=== PATIENT | female | born 1945 | race Caucasian/White ===

== ENCOUNTER 2024-08-16 16:26 | Inpatient (IN) | payer OTHER, MEDICARE, SELFPAY ==
[2024-08-16 16:29] VITALS: BP 137/73; PULSE 92; RESP 21; TEMP 36.5; O2SAT 95
[2024-08-16 17:00] VITALS: PULSE 97; RESP 22; O2SAT 100; BMI 30.7
--- NOTE | 2024-08-16 17:00 | PC.NURSE ---
Patient BIBA from outside a clinic after patient had a witnessed GLF. Escalator Mechanic told EMS patient slide down and landed on her bottom and was leaning against the car when EMS arriver. No LOC. No trauma to head. Upon arrival patient in no signs of acute distress. Patient A/O x1. Alert to self only. Patient placed in ED room 4 connected to monitors. MD to see patient.
--- NOTE | 2024-08-16 17:33 | XR_ITS ---
Examination: AP pelvis single view Technique: AP portable supine pelvis single view Exam date and time: August 16, 2024 1805 hrs. Indications: Patient fell today with injury to the pelvis, pelvic pain. Findings: Subtle radiolucency through the intertrochanteric region left hip Right hip bones of the pelvis intact Impression: Recommend follow-up coned views left hip to exclude left hip fracture
--- NOTE | 2024-08-16 17:33 | XR_ITS ---
Examination: CT brain head without contrast. 2-D sagittal coronal reconstructions Date and time of exam:August 16, 2024 1749 hrs. Comparison April 20, 2024 Indications: Patient fell today with injury to the head, followed by altered mental status CTDI: vol (mGy):55.7 DLP: (mGycm):1216 Technique: Multiple CT axial sections of the brain have been obtained, 5 mm slice thickness. Contrast has not been administered. 2-D sagittal, coronal reconstructions have been obtained Low dose protocols were performed. One or more of the following dose reduction techniques were used; automated exposure control, adjustment of the mA and/or KV according to patient size, use of iterative reconstruction technique. Findings: Stable asymmetric mild left ventricular enlargement compared with April 20, 2024. Intra-axial or extra-axial hemorrhage density is not seen. No mass effect or midline shift Basal cisterns are not remarkable. Fourth ventricle is midline. Cranial vault intact. Impression: Negative for acute hemorrhage, mass effect or midline shift Clinical correlation advised and follow-up accordingly
--- NOTE | 2024-08-16 17:33 | XR_ITS ---
Examination: AP chest single view Technique one AP portable upright chest single view Exam date and time: August 16, 2024 1802 hrs. Indications: Patient with altered mental status today Findings: Mild enlargement cardiac contour Mild vascular congestion Interstitial disease throughout the lungs most consistent with pulmonary fibrosis No aspiration pneumonia Cardiac leads satisfactory position Impression: Interstitial disease throughout the lungs most consistent with pulmonary fibrosis No aspiration pneumonia
--- NOTE | 2024-08-16 17:33 | EKG_ITS ---
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
--- NOTE | 2024-08-16 17:35 | EDNOTE_ITS ---
<Statement entered by Gabrielle Marte MD - 08/17/24 19:40> As co-signing physician, I was present and available for consult prn. I concur with the plan and care as documented by the midlevel provider. Altered Mental Status RME/HPI General Chief Complaint: Altered Mental Status Stated Complaint: ALTERED/FALL Time Seen by Provider: 08/16/24 17:33 Arrival date/time: 08/16/24 16:26 RME / HPI RME / HPI narrative: 79-year-old female patient with significant history of hypertension, diabetes mellitus was brought in by EMS for evaluation regarding altered mental status. Apparently patient was noted to be altered today, severity mild, usually GCS of 15, currently a GCS of 14. Went to PCP for checkup however while in the lobby, patient slid down from a chair, and was helped by her caregiver all the way down to the floor. There was no trauma involved. When the EMS arrived, patient was leaning behind the wall. On my initial evaluation, patient knows her name and place. She denies any complaints. Related Data Home Medications ?Medication ?Instructions ?Recorded ?Confirmed metoclopramide HCl 10 mg tablet 10 mg PO BID 02/28/18 04/15/24 levothyroxine 75 mcg tablet 75 mcg PO QDAY 02/14/23 04/15/24 amiodarone 200 mg tablet 200 mg PO QDAY 04/10/23 04/15/24 amlodipine 5 mg tablet 5 mg PO QDAY 04/10/23 04/15/24 bupropion HCl 200 mg tablet,12 hr 200 mg PO BID 04/10/23 04/15/24 sustained-release escitalopram oxalate 20 mg tablet 20 mg PO QDAY 04/10/23 04/15/24 apixaban 2.5 mg tablet (Eliquis) 2.5 mg PO BID 11/06/23 04/15/24 pioglitazone 15 mg tablet (Actos) 15 mg PO QDAY 11/06/23 04/15/24 atorvastatin 10 mg tablet 10 mg PO QDAY 04/15/24 04/15/24 insulin glargine 100 unit/mL (3 30 unit subcut QAM 04/15/24 04/15/24 mL) subcutaneous pen (Lantus Solostar U-100 Insulin) trazodone 150 mg tablet 150 mg PO HS 04/15/24 04/15/24 Previous Rx's ?Medication ?Instructions ?Recorded flash glucose scanning reader #1 ea 04/19/24 (FreeStyle Jc 2 [place]) flash glucose sensor (FreeStyle #1 ea 04/19/24 Jc 2 Sensor kit) losartan 50 mg tablet 50 mg PO QDAY #30 tabs 04/21/24 naloxone 4 mg/actuation nasal 4 mg intranasal Q3M PRN opioid 04/21/24 spray (Narcan) overdose #2 ea Allergies Allergy/AdvReac Type Severity Reaction Status Date / Time Sulfa (Sulfonamide Allergy Severe ITCHY Verified 11/06/23 15:58 Antibiotics) tomato Allergy Severe Rash Verified 04/15/24 18:32 Review of Systems Review of Systems Narrative Review of Systems: Review of system reviewed and within normal limits except mentioned in HPI ED Exam Narrative Physical exam: VITAL SIGNS: Reviewed. GENERAL APPEARANCE: Alert and oriented x 2, follows simple commands, no acute distress, HEAD AND FACE: Non-traumatic. ENT: PERRL, pink conjunctivitis, eyelid no trauma, Mucous membrane dry NECK: Supple, nontender, no nuchal rigidity. CHEST: No tenderness, no crepitus, no paradoxical movement, no retractions. LUNGS: Clear, well ventilated, symmetric, no rales, no wheezing, no ronchi, no stridor, good breath sounds bilaterally. HEART: Regular rate, regular rhythm, no murmur, no gallops. ABDOMEN: Soft, positive bowel sounds, nondistended, no guarding, nontender, no rebound, no masses, RECTAL: Deferred. GENITAL: Deferred. NEUROLOGICAL: Gross motor function intact sensory function intact, Appropriate for age. MUSCULOSKELETAL: low back nontender, full range of motion. EXTREMITIES: Nontender, full range of motion. SKIN: Color pink, dry, no rash, no lacerations, no abrasions, no contusions. LYMPHATICS: Deferred. Course Quality Measures none Orders Category Date Time Status Admit to Inpatient Status Routine Admission 08/16/24 22:10 Active Patient Condition Routine Admission 08/16/24 22:10 Ordered Activity as Tolerated Routine Care 08/16/24 22:10 Ordered Bedside Blood Glucose ACHS Care 08/16/24 22:15 Active COVID-19 Screening Questionnaire NOW Care 08/16/24 22:08 Active Decision to Admit X1 Care 08/16/24 22:08 Active EKG (ED ONLY) *Do not use* NOW Care 08/16/24 17:33 Completed In and Out Catheter X1 Care 08/16/24 17:33 Completed Notify provider NEEDED Care 08/16/24 22:10 Active Diet Cardiac Diet 08/16/[address] head/brain wo con Stat Exams 08/16/24 17:[address] pelvis wo con Stat Exams 08/16/24 19:49 Completed EKG (ED Only) Stat Exams 08/16/24 17:33 Draft XR chest 1V Stat Exams 08/16/24 17:33 Completed XR pelvis 1-2V Stat Exams 08/16/24 17:33 Completed B-Type Natriuretic Peptide Stat Lab 08/16/24 17:50 Completed Basic Metabolic Panel AM DRAW Lab 08/17/24 05:00 Ordered Basic Metabolic Panel AM DRAW Lab 08/18/24 05:00 Ordered Basic Metabolic Panel AM DRAW Lab 08/19/24 05:00 Ordered Blood Culture (Lab) Stat Lab 08/16/24 17:50 Received C-Reactive Protein Stat Lab 08/16/24 17:50 Completed CBC AM DRAW Lab 08/17/24 05:00 Ordered CBC AM DRAW Lab 08/18/24 05:00 Ordered CBC AM DRAW Lab 08/19/24 05:00 Ordered CBC Stat Lab 08/16/24 17:50 Completed Comprehensive Metabolic Panel Stat Lab 08/16/24 17:50 Completed Lactate (Lactic Acid) Stat Lab 08/16/24 17:50 Completed Partial Thromboplastin Time Stat Lab 08/16/24 18:23 Completed Procalcitonin Stat Lab 08/16/24 17:50 Completed Prothrombin Time with INR Stat Lab 08/16/24 18:23 Completed UA, C/S IF [Urinalysis, C/S if Indicated] Stat Lab 08/16/24 17:45 Completed Acetaminophen Tab [Tylenol Tab] Med 08/16/24 22:10 Active 650 mg PO Q6H PRN Amiodarone [Cordarone] Med 08/17/24 09:00 Ordered 200 mg PO QDAY Apixaban [Eliquis] Med 08/17/24 09:00 Ordered 2.5 mg PO BID Dextrose 50% Syr [D50w Syringe Abboject] Med 08/16/24 22:15 Active 25 ml IV Q15MIN PRN Dextrose 50% Syr [D50w Syringe Abboject] Med 08/16/24 22:15 Active 50 ml IV Q15MIN PRN Gabapentin Med 08/17/24 06:00 Ordered 100 mg PO TID Glucagon Inj Med 08/16/24 22:15 Active 1 mg IM Q15MIN PRN Insulin Glargine Inj [Lantus Inj] Med 08/17/24 09:00 Active 15 unit SC QDAY Insulin Regular Med 08/17/24 07:30 Ordered See Protocol SC ACHS Levothyroxine Sodium [Synthroid] Med 08/17/24 06:00 Ordered 75 mcg PO ACBR Sodium Chloride 0.9% 1000 ml [Ns] 1,000 ml Med 08/16/24 22:15 Ordered IV 75 mls/hr Sodium Chloride 0.9% 1000 ml [Ns] 1,000 ml Med 08/16/24 17:35 Discontinued IV 999 mls/hr cefTRIAXone/D5w 1gm IV premix [Rocephin/D5w 1gm IV Med 08/17/24 09:00 Ordered premix] 50 ml IV QDAY cefTRIAXone/D5w 1gm IV premix [Rocephin/D5w 1gm IV Med 08/16/24 19:19 Discontinued premix] 50 ml IV X1 Code Status Routine Oth 08/16/24 22:10 Ordered Vital Signs Vital signs: Vital Signs Temperature 97.7 F 08/16/24 16:29 Pulse Rate 92 08/16/24 16:29 Respiratory Rate 21 H 08/16/24 16:29 Blood Pressure 137/73 H 08/16/24 16:29 Pulse Oximetry (%) 95 08/16/24 16:29 Oxygen Delivery Method Room Air 08/16/24 16:29 Altered Mental Status MDM Narrative MDM Narrative:: 79-year-old female patient with significant history of hypertension, diabetes mellitus was brought in by EMS for evaluation regarding altered mental status. Apparently patient was noted to be altered today, severity mild, usually GCS of 15, currently a GCS of 14. Went to PCP for checkup however while in the lobby, patient slid down from a chair, and was helped by her caregiver all the way down to the floor. There was no trauma involved. When the EMS arrived, patient was leaning behind the wall. On my initial evaluation, patient knows her name and place. She denies any complaints. CT scan of the head came back unremarkable. CT scan of the pelvis came back unremarkable also. Laboratory Significant for UTI. With leukocytosis of 14.6 creatinine also was noted to be elevated to 1.6, BUN of 26. Chest x-ray came back unremarkable. Patient received IV ceftriaxone. Plan of care discussed with the patient including admission for further manageme nt. Patient agrees with the plan Patient data External records reviewed:: None Clinical information provided by:: patient and EMS Social determinants that could affect healthcare access:: none Patient has the following chronic illnesses:: COPD, chronic A-fib, diabetes mellitus How is presenting disease/condition affected by chronic disease/condition?: exacerbated by Evaluation data The following diagnostics were reviewed and interpreted by me:: lab results, radiology exam(s) and EKG tracing(s) Lab and/or radiology exams considered but not ordered:: None Interpretation Summary: EKG as interpreted by me shows sinus rhythm, ventricular rate of 80 bpm, AZ interval 192 MS, no ST segment elevation or depression noted.CT scan of the head came back unremarkable. CT scan of the pelvis came back unremarkable also. Laboratory Significant for UTI. With leukocytosis of 14.6 creatinine also was noted to be elevated to 1.6, BUN of 26. Chest x-ray came back Interstitial disease throughout the lungs most consistent with pulmonary fibrosis No aspiration pneumonia Medications / Prescriptions Medications or Prescriptions considered but not ordered:: None Medication administrations:: Medication Administration History Acetaminophen (Acetaminophen 325 Mg Tablet) 650 mg PO Q6H PRN PRN Reason: Fever >101.5 Stop: 09/15/24 22:09 Amiodarone HCl (Amiodarone Hcl 200 Mg Tablet) 200 mg PO QDAY [facility] Stop: 09/16/24 08:59 Apixaban (Apixaban 2.5 Mg Tablet) 2.5 mg PO BID [facility] Stop: 09/16/24 08:59 Dextrose (Dextrose 50%-Water Inj 50 Ml Syringe) 25 ml IV Q15MIN PRN PRN Reason: BG 50-70 responsive npo pt Stop: 09/15/24 22:14 Dextrose (Dextrose 50%-Water Inj 50 Ml Syringe) 50 ml IV Q15MIN PRN PRN Reason: BG <50 OR BG <70 & pt unresponsive Stop: 09/15/24 22:14 Gabapentin (Gabapentin 100 Mg Capsule) 100 mg PO TID [facility] Stop: 09/16/24 05:59 Glucagon (Glucagon Inj 1 Mg Vial) 1 mg IM Q15MIN PRN PRN Reason: BG <70, and no IV access Sodium Chloride (Ns) 1,000 mls @ 75 mls/hr IV .[id number] [facility] Stop: 09/15/24 22:14 Ceftriaxone Sodium/Dextrose (Rocephin/D5w 1gm Iv Premix) 50 mls @ 100 mls/hr IV QDAY [facility] Stop: 08/24/24 08:59 Insulin Glargine (Insulin Glargine (Lantus) 5 Unit/0.05 Ml (Per 5 Units)) 15 unit SC QDAY [facility] Stop: 09/16/24 08:59 Insulin Human Regular (Insulin Hum Regular 1 Unit/0.01 Ml (Per Unit)) 0 unit SC ACHS [facility]; Protocol Stop: 09/16/24 07:29 Levothyroxine Sodium (Levothyroxine Sodium 88 Mcg Tablet) 75 mcg PO ACBR [facility] Stop: 09/16/24 05:59 Discontinued Medications Sodium Chloride (Ns) 1,000 mls @ 999 mls/hr IV .Q1H1M ONE Stop: 08/16/24 18:35 Last Infusion: 08/16/24 19:07 Dose: Infused Documented By: Admin: 08/16/24 17:59 Dose: 999 mls/hr Documented By: TYLER Ceftriaxone Sodium/Dextrose (Rocephin/D5w 1gm Iv Premix) 50 mls @ 100 mls/hr IV X1 ONE Stop: 08/16/24 19:48 Last Infusion: 08/16/24 22:06 Dose: Infused Documented By: Admin: 08/16/24 20:33 Dose: 100 mls/hr Documented By: NOA Patient received ceftriaxone IV and IV fluids for hydration Consultations Consultation(s) initiated? (list below): No Consultation #1 (Physician, Specialty, Details): None Diagnosis Differential diagnosis altered mental status: altered mental status, s ubarachnoid hemorrhage, sepsis and other (UTI) Most likely diagnosis given after review of the tests above:: uti Admission Indicated Admission indicated?: not indicated Explain why admission is indicated or not indicated:: None Admission Request Was there a request for admission?: Yes Admission Attestation Admission request attestation: Discussed case with [ Dr Skinner ] from Hospitalist service regarding admission. Discussed patients ED course, exam findings, labs, and radiology results. The Hospitalist [agrees] to accept the patient for admission. Disposition Plan Disposition Plan: Admit Discharge Plan Plan Patient Disposition: Admit Acute Care w/in Hospital Prescriptions/Referrals Prescriptions/Med Rec: No Action Eliquis 2.5 mg tablet 2.5 mg PO BID Hold Instructions: Resume on 05/03/24. HOLD until follow up with PCP , not required pioglitazone [Actos] 15 mg tablet 15 mg PO QDAY Hold Instructions: Resume on 05/03/24. HOLD until follow up with PCP metoclopramide HCl 10 mg Tablet 10 mg PO BID amiodarone 200 mg tablet 200 mg PO QDAY Patient Comments: TAKE 1 TABLET BY MOUTH EVERY DAY amlodipine 5 mg tablet 5 mg PO QDAY Patient Comments: TAKE 1 TABLET BY MOUTH EVERY DAY bupropion HCl 200 mg tablet sustained-release 12 hr 200 mg PO BID Patient Comments: TAKE 1 TABLET BY MOUTH TWICE A DAY escitalopram oxalate 20 mg tablet 20 mg PO QDAY Patient Comments: TAKE 1 TABLET BY MOUTH EVERY DAY levothyroxine 75 mcg Tablet 75 mcg PO QDAY atorvastatin 10 mg Tablet 10 mg PO QDAY insulin glargine [Lantus Solostar U-100 Insulin] 100 unit/mL (3 mL) Insulin Pen 30 unit SUBCUT QAM Hold Instructions: Resume on 05/03/24. HOLD until follow up with PCP trazodone 150 mg tablet 150 mg PO HS Hold Instructions: f/u with pcp Patient Comments: TAKE 1 TABLET BY MOUTH AT BEDTIME (DME) FreeStyle Jc 2 [place] Misc See Rx Instructions .Route Qty: 1 0RF Rx Instructions: As directed (DME) FreeStyle Jc 2 Sensor Kit See Rx Instructions .Route Qty: 1 0RF Rx Instructions: As directed naloxone [Narcan] 4 mg/actuation spray,non-aerosol 4 mg intranasal Q3M PRN (Reason: opioid overdose) Qty: 2 2RF Rx Instructions: spray 1 dose into ONE nostril; alternate nostrils w each dose until help arrives losartan 50 mg tablet 50 mg PO QDAY Qty: 30 0RF Referrals: No Primary/Family,Physician [Primary Care Provider] - In 1 week Problem List Clinical Impression: Altered mental status, Acute UTI Patient/Caregiver Discharge Instructions Print Language: Thai Stand Alone Forms: [employer] Info., Patient Portal Info Letter
[2024-08-16 17:58] LABS: Lactate (Lactic Acid) 1.2 mMol/L (0.4-2.0)
[2024-08-16] MEDS: SODIUM CHLORIDE 0.9% 1000 ML 1,000 ML 999 ML IV (17:59)
[2024-08-16 18:00] LABS: Basophils % (Auto) 0 % (0-2.5); Eosinophils % (Auto) 0 % (0-10); Hematocrit 40.4 % (36.0-46.0); Hemoglobin 13.7 g/dL (12.0-16.0); Immature Granulocytes % (Auto) 1 % (0-0); Immature Granulocytes Auto 0.12 Thou/mm3 (0.00-0.00); Lymphocytes # (Auto) 1.3 Thou/mm3 (1.0-4.8); Lymphocytes % (Auto) 9 % (10-50); Mean Corpuscular HGB Conc 33.9 g/dl (31.0-37.0); Mean Corpuscular Volume 89 fL (80-100); Monocytes # (Auto) 1.2 Thou/mm3 (0.0-0.8); Monocytes % (Auto) 8 % (0-12); Neutrophils % (Auto) 82 % (37-80); Nucleated Red Blood Cell % 0 /100 WBC (0); Platelet Count 185 Thou/mm3 (140-440); RDW Standard Deviation 45.1 fL (36.4-46.3); Red Blood Count 4.56 Miln/mm3 (4.00-5.20); White Blood Count 14.6 Thou/mm3 (3.6-11.0)
[2024-08-16 18:21] VITALS: BP 159/81; PULSE 79; RESP 17; TEMP 36.6; O2SAT 95
[2024-08-16 18:23] LABS: Bacteria,Urine 2+; Bilirubin,Urine Negative (Negative); Blood,Urine 3+ (Negative); Collection Type, Urine Catheter; Color,Urine Yellow (Lt Yel-Yel); Culture Indicated,Urine Contaminated; Glucose, Urine 3+ (Negative); Hyaline Casts,Urine 1 /hpf (0-1); Ketones,Urine Negative (Negative); Leukocyte Esterase,Urine Positive (Negative); Nitrite,Urine Negative (Negative); Protein,Urine 3+ (Neg - Trace); RBC,Urine 81 /hpf (0-3); Specific Gravity,Urine 1.024 (1.001-1.035); Squamous Epithelial Cell,Urine 21 /hpf (0-5); Urobilinogen,Urine Negative mg/dL (0.0-1.0); WBC,Urine 2035 /hpf (0-5)
[2024-08-16 18:24] LABS: Clarity,Urine Turbid (Clear/Hazy)
[2024-08-16 18:34] LABS: Alanine Aminotransferase 10 U/L (10-49); Albumin, Serum 4.1 gm/dL (3.4-4.8); Albumin/Globulin Ratio 1.5 (1.2-2.2); Alkaline Phosphatase 71 U/L (46-116); Anion Gap 8 (7-16); Aspartate Amino Transferase 12 U/L (0-34); BUN/Creatinine Ratio 16 Ratio (12-20); Bilirubin,Total 0.7 mg/dL (0.3-1.2); Blood Urea Nitrogen 26 mg/dL (9-23); C-Reactive Protein 0.8 mg/dL (0.0-0.9); Calcium 9.7 mg/dL (8.3-10.6); Calcium (Corrected) 9.7 mg/dL (8.5-10.1); Carbon Dioxide 20.8 mMol/L (20.0-31.0); Chloride 101 mMol/L (98-107); Creatinine (Component) 1.6 mg/dL (0.6-1.3); Estimated Creatinine Clearance 31.5 mL/min (>60); Globulin 2.8 gm/dL (2.3-3.5); Glucose 399 mg/dL (74-106); Osmolality,Calculated 282 (275-295); Procalcitonin 0.06 ng/ml (0.0-0.49); Sodium 130 mMol/L (136-145); Total Protein 6.9 gm/dL (5.7-8.2); eGFR 33 See Note
[2024-08-16 18:44] LABS: B-Type Natriuretic Peptide 56 pg/mL (0-100)
[2024-08-16 19:45] LABS: Partial Thromboplastin Time 24.8 Seconds (22.0-36.0); Prothrombin Time 11.4 Seconds (9.0-12.2)
--- NOTE | 2024-08-16 19:49 | XR_ITS ---
Examination: CT pelvis without intravenous contrast. 2-D sagittal and coronal reconstructions. Date and time of exam:August 16, 2024 1800 hrs. Indications: Patient fell today with injury of the pelvis, pelvic pain CTDI: vol (mGy) :14.3 DLP: (mGycm) : 523 Technique: Multiple 3 mm axial sections of the pelvis have been obtained with the 64 slice high resolution scanner. 2-D sagittal and coronal reconstructions. Low dose protocols were performed. One or more of the following dose reduction techniques were used; automated exposure control, adjustment of the mA and/or KV according to patient size, use of iterative reconstruction technique. Findings: Prominent osteopenia Right and left hips appear intact with no hip dislocation Bones of the pelvis intact Fat-containing femoral hernias Urinary bladder intact No pelvic hematoma Impression: No acute hip or pelvic fracture
[2024-08-16] MEDS: cefTRIAXone/D5w 1gm IV premix 50 ML IV (20:33)
[2024-08-16 21:30] VITALS: BP 157/103; PULSE 82; RESP 19; TEMP 37.2; O2SAT 99
[2024-08-16 22:00] VITALS: BP 155/72; PULSE 72; RESP 18; O2SAT 97
--- NOTE | 2024-08-16 22:09 | PD.HHHP ---
Documentation for date of: 08/16/24 HPI - Hospitalist History of Present Illness History of Present Illness: AMS History of present illness: The patient is a 79-year-old female with a significant past medical history of type 2 diabetes mellitus (insulin-dependent), heart failure with preserved ejection fraction (EF 50?55% as of January 2023), atrial fibrillation on Eliquis, hypothyroidism, hypertension, chronic back pain, and status post-pacemaker placement in 2022. She was brought to the emergency department by EMS following a reported fall. According to the emergency physician's note, the fall occurred in the lobby of her primary care physician's office. The patient reportedly slid down from a chair and was assisted to the floor by her caregiver. No trauma was noted, and upon EMS arrival, she was found leaning against a wall. In the emergency department, her vital signs were notable for a heart rate of 92 bpm, blood pressure of 137/73 mmHg, respiratory rate of 21 breaths per minute, temperature of 97.7?F, and oxygen saturation of 95% on room air. Laboratory studies revealed WBC 14.6, Na 130 mmol/L, elevated creatinine 1.6 mg/dL, and glucose 399 mg/dL. Urinalysis showed turbid urine with WBC >2035/HPF and 2+ bacteria. Imaging studies included a head CT, which was negative for acute intracranial pathology, and a hip X-ray, which demonstrated a subtle radiolucency through the left intertrochanteric region, suggestive of a possible fracture. However, a CT scan confirmed no acute hip or pelvic fracture. EKG showed sinus rhythm with no acute changes. When interviewed, the patient was unable to recall details of the incident, including who called EMS or specifics about her living situation. She denied any specific complaints during the assessment. The patient was admitted for further evaluation and management. Review of Systems Review of Systems ROS Unobtainable: unobtainable due to mental status Past Medical History Past Medical History CARDIAC: Positive Cardiac Disorders, Atrial Fibrillation and Hypertension; Negative Congestive Heart Failure RESPIRATORY: Negative Chronic Obstructive Pulmonary Disease (COPD) or Asthma GASTROINTESTINAL: Positive Gastroesophageal Reflux Disease GENITOURINARY: Negative Renal Disease MUSCULOSKELETAL: Positive Degenerative Disk Disease ENDOCRINE: Positive Diabetes Mellitus Type 2 and Hypothyroidism; Negative Diabetes Mellitus Type 1 HEMATOLOGIC: Negative Sickle Cell Disease PSYCHO/SOCIAL: Positive Bipolar Disorder, Depression and Anxiety OTHER HISTORY: Positive Blood Transfusions Surgical History SURGICAL: Positive Abdominal Surgery and Hysterectomy Social History SMOKING STATUS: Never smoker SUBSTANCE USE: does not use OCCUPATION: Retired. Single. Meds Home Medications and Allergies Home Medications ?Medication ?Instructions ?Recorded ?Confirmed ?Type metoclopramide HCl 10 mg tablet 10 mg PO BID 02/28/18 04/15/24 History levothyroxine 75 mcg tablet 75 mcg PO QDAY 02/14/23 04/15/24 History amiodarone 200 mg tablet 200 mg PO QDAY 04/10/23 04/15/24 History amlodipine 5 mg tablet 5 mg PO QDAY 04/10/23 04/15/24 History bupropion HCl 200 mg tablet,12 hr 200 mg PO BID 04/10/23 04/15/24 History sustained-release escitalopram oxalate 20 mg tablet 20 mg PO QDAY 04/10/23 04/15/24 History apixaban 2.5 mg tablet (Eliquis) 2.5 mg PO BID 11/06/23 04/15/24 History pioglitazone 15 mg tablet (Actos) 15 mg PO QDAY 11/06/23 04/15/24 History atorvastatin 10 mg tablet 10 mg PO QDAY 04/15/24 04/15/24 History insulin glargine 100 unit/mL (3 30 unit subcut QAM 04/15/24 04/15/24 History mL) subcutaneous pen (Lantus Solostar U-100 Insulin) trazodone 150 mg tablet 150 mg PO HS 04/15/24 04/15/24 History Allergies Allergy/AdvReac Type Severity Reaction Status Date / Time Sulfa (Sulfonamide Allergy Severe ITCHY Verified 11/06/23 15:58 Antibiotics) tomato Allergy Severe Rash Verified 04/15/24 18:32 Exam Vital Signs Temp Pulse Resp BP Pulse Ox O2 Del Method 98.9 F 82 19 157/103 H 99 Room Air 08/16/24 21:30 08/16/24 21:30 08/16/24 21:30 08/16/24 21:30 08/16/24 21:30 08/16/24 21:30 Narrative Constitutional: Female, in no apparent distress. Eyes: Extraocular movements intact. No ptosis. PERRL. Neck: Supple, trachea midline. No thyromegaly. Lungs: Clear and good breath sounds equally. No wheezing. No rhonchi. CV: S1, S2. Regular rate and rhythm. GI: Soft, nontender. No HSM. Musculoskeletal: No cyanosis, clubbing or edema. Neuro: Disoriented. Not following orders. Psychiatric: No signs of depression and is nonfocal. Skin: Warm and dry. No acute lesions. Results - Hospitalist Labs Diagrams: 08/16/24 17:50 08/16/24 17:50 Labs: Short CBC 08/16/24 Range/Units 17:50 WBC 14.6 H (3.6-11.0) Thou/mm3 Hgb 13.7 (12.0-16.0) g/dL Hct 40.4 (36.0-46.0) % Plt Count 185 (140-440) Thou/mm3 BMP 08/16/24 17:50 Sodium 130 L Potassium 4.0 Chloride 101 Carbon Dioxide 20.8 BUN 26 H Creatinine 1.6 H Glucose 399 H Calcium 9.7 Liver Function 08/16/24 Range/Units 17:50 Total Bilirubin 0.7 (0.3-1.2) mg/dL AST 12 (0-34) U/L ALT 10 (10-49) U/L Alkaline Phosphatase 71 (46-116) U/L Albumin 4.1 (3.4-4.8) gm/dL Urine 08/16/24 Range/Units 17:45 Urine Color Yellow (Lt Yel-Yel) Urine Clarity Turbid A (Clear/Hazy) Urine pH 6.0 (5.0-7.0) Ur Specific [place] 1.024 (1.001-1.035) Urine Protein 3+ A (Neg - Trace) Urine Glucose (UA) 3+ A (Negative) Assessment & Plan -Hospitalist Patient Synopsis #AMS #Fall - Likely multifactorial, including possible orthostatic hypotension, medication side effects, or underlying infection. No acute fractures identified - Physical therapy, initiate early mobility evaluation to prevent deconditioning - Hold psy meds now #UTI - Antibiotic #Acute kidney injury - IV hydration #DM - Adjust insulin regimen and monitor blood glucose levels #Hx Hypertension - Hold losartan due to KRYSTAL #Hx Atrial fibrillation #Heart failure with preserved ejection fraction 50-55% - Eliquis 2.5 mg PO BID - Continue Amiodarone 200 mg PO Qday #Hx Hypothyroidism - Levothyroxine Quality Measures Quality Measures VTE prophylaxis Advance care planning discussed with:: patient
[2024-08-16] MEDS: SODIUM CHLORIDE 0.9% 1000 ML 1,000 ML 75 ML IV (22:47)
[2024-08-16 23:00] VITALS: BP 125/81; PULSE 81; RESP 18; O2SAT 98
--- NOTE | 2024-08-16 23:43 | PC.NURSE ---
REPORT GIVEN TO JOO JCAOBS. ALL QUESTIONS ASKED AND ANSWERED. IVF INFUSING WITHOUT DIFFICULTY. PATIENT TAKEN TO FLOOR BY STAFF. NO DISTRESS NOTED AT TRANSFER. PATIENT ON ROOM AIR.
[2024-08-17] VITALS (10 sets, daily range): BP systolic 126–174; BP diastolic 58–89; PULSE 65–94; RESP 14–19; TEMP 36–36.6; O2SAT 92–98; BMI 35.5; BMI 12.0
[2024-08-17] MEDS: LEVOTHYROXINE SODIUM 25 MCG TABLET 75 MCG PO (05:28)
[2024-08-17] MEDS: GABAPENTIN 100 MG CAPSULE PO ×3 (05:28→22:19)
[2024-08-17 06:19] LABS: Basophils % (Auto) 0 % (0-2.5); Eosinophils # (Auto) 0.1 Thou/mm3 (0.0-0.5); Eosinophils % (Auto) 1 % (0-10); Hematocrit 38.9 % (36.0-46.0); Hemoglobin 12.9 g/dL (12.0-16.0); Immature Granulocytes % (Auto) 1 % (0-0); Immature Granulocytes Auto 0.06 Thou/mm3 (0.00-0.00); Lymphocytes % (Auto) 17 % (10-50); Mean Corpuscular HGB Conc 33.2 g/dl (31.0-37.0); Mean Corpuscular Hemoglobin 30.4 pg (25.0-35.0); Mean Corpuscular Volume 92 fL (80-100); Monocytes % (Auto) 8 % (0-12); Neutrophils # (Auto) 8.7 Thou/mm3 (1.8-7.7); Neutrophils % (Auto) 73 % (37-80); Nucleated Red Blood Cell % 0 /100 WBC (0); Platelet Count 129 Thou/mm3 (140-440); RDW Standard Deviation 48.1 fL (36.4-46.3); Red Blood Count 4.24 Miln/mm3 (4.00-5.20); White Blood Count 11.9 Thou/mm3 (3.6-11.0)
[2024-08-17 06:43] LABS: Anion Gap 10 (7-16); BUN/Creatinine Ratio 19 Ratio (12-20); Blood Urea Nitrogen 26 mg/dL (9-23); Carbon Dioxide 22.1 mMol/L (20.0-31.0); Chloride 103 mMol/L (98-107); Creatinine (Component) 1.4 mg/dL (0.6-1.3); Estimated Creatinine Clearance 38.9 mL/min (>60); Free T4 (Free Thyroxine) 1.62 ng/dL (0.89-1.76); Glucose 246 mg/dL (74-106); Osmolality,Calculated 282 (275-295); Potassium 4.3 mMol/L (3.4-5.1); Sodium 135 mMol/L (136-145); eGFR 38 See Note
[2024-08-17] MEDS: INSULIN HUM REGULAR 1 UNIT/0.01 ML (PER UNIT) SC ×4 (07:24→20:30)
[2024-08-17] MEDS: ACETAMINOPHEN 325 MG TABLET 650 MG PO ×2 (07:58→20:37)
[2024-08-17] MEDS: INSULIN GLARGINE (Lantus) 5 UNIT/0.05 ML (PER 5 UNITS) 15 UNIT SC (09:19)
[2024-08-17] MEDS: APIXABAN 2.5 MG TABLET PO ×2 (09:20→20:30)
[2024-08-17] MEDS: AMIODARONE HCL 200 MG TABLET PO (09:20)
[2024-08-17] MEDS: cefTRIAXone/D5w 1gm IV premix 50 ML IV (09:21)
--- NOTE | 2024-08-17 12:18 | PC.PT ---
PT eval only. Patient is at her PLOF. Homehealth OT needed to assess patient's needs at home and also assess patient's wc as needed.
--- NOTE | 2024-08-17 12:41 | PC.SS ---
12:41 SW attempted to contact Daja, caregiver, auto message stated caller unable to accept calls PT informed SS recommendation for HH
--- NOTE | 2024-08-17 13:16 | ESPR_ITS ---
<Statement entered by Sherrill Birch MD - 09/03/24 09:26> I reviewed above note and agree with findings and plans. I have also personally examined the patient with medicine team and went over assessment and plan with medical team including tax intern and resident physician. Documentation for date of: 08/17/24 Subjective Subjective Interval history: Patient knows her name and that she is in the hospital but does not know what hospital. She also reports being in pain but when asked where she states she does not know . She is very slow to respond. Exam Vital Signs Temp Pulse Resp BP Pulse Ox O2 Del Method 97.2 F 75 14 137/58 H 94 L Room Air 08/17/24 12:00 08/17/24 12:00 08/17/24 12:00 08/17/24 12:00 08/17/24 12:00 08/17/24 12:00 Narrative Exam General: Well appearing, confused, in no acute distress HEENT: Normocephalic, atraumatic, conjunctiva clear, sclera non-icteric, EOM intact, PERRL, Heart: Regular rate and rhythm, no murmur or gallop Lungs: Clear to auscultation, no wheezing Abdomen: Bowel sounds normal, no tenderness, organomegaly, masses, or hernia Back: Spine normal without deformity or tenderness, no CVA tenderness Extremities: No amputations or deformities, cyanosis, or varicosities, peripheral pulses intact. +1 pitting edema b/l LE Neurologic: moves all extremities spontaneously, Alert but only oriented to name Psychiatric: Cooperative, normal mood and affect. Objective Labs 08/17/24 05:50 08/17/24 05:50 Labs: Laboratory Results - last 24 hr 08/16/24 08/16/24 08/16/24 17:45 17:50 18:23 WBC 14.6 H RBC 4.56 Hgb 13.7 Hct 40.4 MCV 89 MCH 30.0 MCHC 33.9 RDW Std Deviation 45.1 Plt Count 185 Neut % (Auto) 82 H Lymph % (Auto) 9 L [place] % (Auto) 8 Eos % (Auto) 0 Baso % (Auto) 0 Neut # (Auto) 12.0 H Lymph # (Auto) 1.3 [place] # (Auto) 1.2 H Eos # (Auto) 0.0 Baso # (Auto) 0.0 Immature Gran # (Auto) 0.12 H Absolute Nucleated RBC 0.00 Immature Gran % 1 H Nucleated RBC % 0 PT 11.4 INR 1.0 APTT 24.8 Sodium 130 L Potassium 4.0 Chloride 101 Carbon Dioxide 20.8 Anion Gap 8 BUN 26 H Creatinine 1.6 H Estim Creat Clear Calc 31.5 L eGFR 33 L BUN/Creatinine Ratio 16 Glucose 399 H Calculated Osmolality 282 Lactic Acid 1.2 Calcium 9.7 Corrected Calcium 9.7 Total Bilirubin 0.7 AST 12 ALT 10 Alkaline Phosphatase 71 C-Reactive Prot, Quant 0.8 B-Natriuretic Peptide 56 Total Protein 6.9 Albumin 4.1 Globulin 2.8 Albumin/Globulin Ratio 1.5 Procalcitonin 0.06 TSH Free T4 Ur Collection Type Catheter Urine Color Yellow Urine Clarity Turbid A Urine pH 6.0 Ur Specific [place] 1.024 Urine Protein 3+ A Urine Glucose (UA) 3+ A Urine Ketones Negative Urine Blood 3+ A Urine Nitrite Negative Urine Bilirubin Negative Urine Urobilinogen (Auto) Negative Ur Leukocyte Esterase Positive Urine RBC 81 H Urine WBC 2035 H Ur Squamous Epith Cells 21 H Urine Bacteria 2+ A Hyaline Casts 1 Ur Culture Indicated? Contaminated 08/17/24 05:50 WBC 11.9 H RBC 4.24 Hgb 12.9 Hct 38.9 MCV 92 MCH 30.4 MCHC 33.2 RDW Std Deviation 48.1 H Plt Count 129 L D Neut % (Auto) 73 Lymph % (Auto) 17 [place] % (Auto) 8 Eos % (Auto) 1 Baso % (Auto) 0 Neut # (Auto) 8.7 H Lymph # (Auto) 2.0 [place] # (Auto) 1.0 H Eos # (Auto) 0.1 Baso # (Auto) 0.0 Immature Gran # (Auto) 0.06 H Absolute Nucleated RBC 0.00 Immature Gran % 1 H Nucleated RBC % 0 PT INR APTT Sodium 135 L Potassium 4.3 Chloride 103 Carbon Dioxide 22.1 Anion Gap 10 BUN 26 H Creatinine 1.4 H Estim Creat Clear Calc 38.9 L eGFR 38 L BUN/Creatinine Ratio 19 Glucose 246 H D Calculated Osmolality 282 Lactic Acid Calcium 9.0 Corrected Calcium Total Bilirubin AST ALT Alkaline Phosphatase C-Reactive Prot, Quant B-Natriuretic Peptide Total Protein Albumin Globulin Albumin/Globulin Ratio Procalcitonin TSH 2.30 Free T4 1.62 Ur Collection Type Urine Color Urine Clarity Urine pH Ur Specific [place] Urine Protein Urine Glucose (UA) Urine Ketones Urine Blood Urine Nitrite Urine Bilirubin Urine Urobilinogen (Auto) Ur Leukocyte Esterase Urine RBC Urine WBC Ur Squamous Epith Cells Urine Bacteria Hyaline Casts Ur Culture Indicated? Quality Measures Quality Measures VTE prophylaxis Advance care planning discussed with:: patient Assessment & Plan Assessment Current Active Medications: Generic Name Dose Route Start Last Admin Trade Name Freq PRN Reason Stop Dose Admin Acetaminophen 650 mg 08/16/24 22:10 Acetaminophen 325 Mg Tablet PO 09/15/24 22:09 Q6H PRN Fever >101.5 Acetaminophen 650 mg 08/17/24 07:38 08/17/24 07:58 Acetaminophen 325 Mg Tablet PO 09/16/24 07:37 650 mg Q6HR PRN Administration PAIN Hydrocodone Bitart/Acetaminophen 1 tab 08/17/24 13:15 Hydrocodone/Apap 10/325 Tab PO 08/22/24 13:29 BID PRN Pain Amiodarone HCl 200 mg 08/17/24 09:00 08/17/24 09:20 Amiodarone Hcl 200 Mg Tablet PO 09/16/24 08:59 200 mg QDAY YURY Administration Apixaban 2.5 mg 08/17/24 09:00 08/17/24 09:20 Apixaban 2.5 Mg Tablet PO 09/16/24 08:59 2.5 mg BID YURY Administration Dextrose 25 ml 08/16/24 22:15 Dextrose 50%-Water Inj 50 Ml Syringe IV 09/15/24 22:14 Q15MIN PRN BG 50-70 responsive npo pt Dextrose 50 ml 08/16/24 22:15 Dextrose 50%-Water Inj 50 Ml Syringe IV 09/15/24 22:14 Q15MIN PRN BG <50 OR BG <70 & pt unresponsive Gabapentin 100 mg 08/17/24 06:00 08/17/24 05:28 Gabapentin 100 Mg Capsule PO 09/16/24 05:59 100 mg TID YURY Administration Glucagon 1 mg 08/16/24 22:15 Glucagon Inj 1 Mg Vial IM Q15MIN PRN BG <70, and no IV access Ceftriaxone Sodium/Dextrose 50 mls @ 100 mls/hr 08/17/24 09:00 08/17/24 09:21 Rocephin/D5w 1gm Iv Premix IV 08/24/24 08:59 100 mls/hr QDAY YURY Administration Insulin Glargine 15 unit 08/17/24 09:00 08/17/24 09:19 Insulin Glargine (Lantus) 5 Unit/0.05 Ml (Per 5 Units) SC 09/16/24 08:59 15 unit QDAY YURY Administration Insulin Human Regular 0 unit 08/17/24 07:30 08/17/24 11:35 Insulin Hum Regular 1 Unit/0.01 Ml (Per Unit) SC 09/16/24 07:29 2 unit ACHS YURY Administration Protocol Levothyroxine Sodium 75 mcg 08/17/24 06:00 08/17/24 05:28 Levothyroxine Sodium 25 Mcg Tablet PO 09/16/24 05:59 75 mcg ACBR YURY Administration Plan Kassi is a 79 F Hx of DM II, HFpEF, Afib on eliquis, Hypothyroidism, HTN, chronic back pain, S/P pacemaker 2022 who presents after a fall at her PCP. No fracture or bleed was found after imaging. However, patient was confused on exam and UA showed infection. Patient will be admitted for AMS 2/2 UTI. #Acute toxic encephalopathy 2/2 UTI UA showed turbid urine with WBC>2035HPF, 2+ bacteria WBC 14.7, Afebrile, no tachycardia/tachypnea, saturating well on RA, mildly hypertensive -Ceftriaxone 1g QD IV -pending urine culture; BCx2 -Tylenol 650mg PRN fever #Ground level Fall - Likely multifactorial, including possible orthostatic hypotension, medication side effects, or underlying infection. No acute fractures identified - Physical therapy, initiate early mobility evaluation to prevent deconditioning - Hold psy meds now #Acute kidney injury -1L NS -Hx of HFpEF, mild pitting edema on exam, will hold more IVF and encourage PO intake -Monitor CMP -Avoid Nephrotoxic drugs #Hx of chronic back pain 8mg Dilaudid 30 tablets per month takes PRN -10mg [place] BID PRN -Tylenol 650mg q6Hr PRN -Monitor for opioid withdrawal #IDDM Home dose 30u glargine -15u glargine QAM -SSI #Hx Hypertension -Hold losartan due to KRYSTAL -Hydralazine SBP> 180 q4hr PRN -Will monitor #Hx Atrial fibrillation #Heart failure with preserved ejection fraction 50-55% #Hx of Pacemaker -Eliquis 2.5 mg PO BID -Continue Amiodarone 200 mg PO Qday -Med/tele #Hx Hypothyroidism - Levothyroxine 75mcg PO QD Health Maintenance: Disp: Med/tele FEN:Cardiac diet GI: not indicated DVT: Eliquis 2.5mg BID Lines: PIV Code: Full The patient's plan was discussed with attending Dr. Birch and senior resident Dr. Yenni Rodriguez, DO PGY1 Internal Medicine Senior resident attestation: Patient evaluated and examined at the bedside, plan of care discussed with rest of the team including my attending physician, except as noted. #Acute toxic encephalopathy, like secondary to UTI: Now improving, patient is A and O x 2, she is a bit slow to respond but is aware that she was confused previously. Possible altered mental status due to underlying UTI. #Opioid use disorder: Patient takes Dilaudid 8 mg p.o. daily, patient reported taking more than 1 pill at times. Takes opioids due to severe backache. We are concern for altered mental status, reluctant to start her back to her home dose as mental status is still not back to baseline. Will start her on [place] 10 mg as needed, if pain control is adequate we will consider alternative medications. Patient is a candidate for methadone or Suboxone, should follow outpatient after discharge. #KRYSTAL: KRYSTAL likely secondary to prerenal etiology, IV fluids. Will monitor closely #Hypertensive urgency: Now resolved, hydralazine added for high blood pressure as needed. Holding off on losartan due to concurrent KRYSTAL. #History of diabetes mellitus: Long-acting insulin plus sliding scale insulin, Yenni PGY2
--- NOTE | 2024-08-17 14:34 | PC.SS ---
Kassi Calderón is 79 year old female admitted to [facility] for AMS. SS conducted bedside contact with the patient to complete initial assessment and to discuss discharge planning. SW used all precautionary measures to complete initial. Role and reason for the contact was explained to Kassi. Pt is alert and oriented times 2. Pt gave verbal authorization for Daja Virgen, spouse and decision maker,[phone] to be present while assessment was conducted. Daja confirmed demographic information. Patient identifies Daja Virgen, spouse, as her surrogate decision maker. Pt states prior to hospitalization pt is cared for by Daja for all ADLs. Pt has O2 but was not using it when assessment was conducted. Provider for O2 is believed to be [facility]. [facility] services discussed and pt has not qualified for medi-rich; Daja is looking into this again. Pt uses wheelchair. Pt does not have a safe 3-1 commode and asking for a hospital bed. Pt confirmed nervous breakdown a while ago, decades, and no current history of mental health or substance abuse.Pt is open to services and does not have a preference on provider. Pt has hugo lift but it is also not working properly as fire department has had to assist lifting pt. Pt and Daja will have a full-bath outside on their porch where Daja is able to wheel pt to tub as shower is too small. Other times pt will receive a bed bath by Daja. Pts PCP is Lang Sandoval last seen last month. Advance life directive discussed and pt not receptive at this time. Pharmacy [facility] choice [facility] [address]. Discharge options discussed and the pt return home. Pt was at [facility] about a year ago and stayed there for a month when pt began deteriorating with memory lapses. Family will provide transportation upon DC. No further intervention required at this time, social services manager would be available to address any further concerns. DC Plan: Home Address: Confirmed on face sheet Contact: Daja Virgen, spouse, PCP: Lang Sandoval
[2024-08-17] MEDS: HYDROcodone/APAP 10/325 TAB PO (16:25)
[2024-08-18] VITALS (10 sets, daily range): BP systolic 128–176; BP diastolic 55–106; PULSE 63–81; RESP 16–20; TEMP 36.4–37.6; O2SAT 92–98
[2024-08-18] MEDS: LEVOTHYROXINE SODIUM 25 MCG TABLET 75 MCG PO (05:53)
[2024-08-18] MEDS: GABAPENTIN 100 MG CAPSULE PO ×3 (05:53→21:19)
[2024-08-18] MEDS: hydrALAZINE INJ 20 MG/ML VIAL 10 MG IV (07:36)
[2024-08-18] MEDS: INSULIN HUM REGULAR 1 UNIT/0.01 ML (PER UNIT) SC ×4 (07:43→21:00)
[2024-08-18 08:00] LABS: Basophils % (Auto) 0 % (0-2.5); Eosinophils # (Auto) 0.2 Thou/mm3 (0.0-0.5); Eosinophils % (Auto) 3 % (0-10); Hematocrit 36.5 % (36.0-46.0); Hemoglobin 12.1 g/dL (12.0-16.0); Immature Granulocytes % (Auto) 0 % (0-0); Immature Granulocytes Auto 0.03 Thou/mm3 (0.00-0.00); Lymphocytes % (Auto) 25 % (10-50); Mean Corpuscular HGB Conc 33.2 g/dl (31.0-37.0); Mean Corpuscular Hemoglobin 30.4 pg (25.0-35.0); Mean Corpuscular Volume 92 fL (80-100); Monocytes # (Auto) 0.7 Thou/mm3 (0.0-0.8); Monocytes % (Auto) 9 % (0-12); Neutrophils # (Auto) 4.9 Thou/mm3 (1.8-7.7); Neutrophils % (Auto) 63 % (37-80); Nucleated Red Blood Cell % 0 /100 WBC (0); Platelet Count 148 Thou/mm3 (140-440); RDW Standard Deviation 47.8 fL (36.4-46.3); Red Blood Count 3.98 Miln/mm3 (4.00-5.20); White Blood Count 7.8 Thou/mm3 (3.6-11.0)
[2024-08-18 08:17] LABS: Anion Gap 8 (7-16); BUN/Creatinine Ratio 21 Ratio (12-20); Blood Urea Nitrogen 32 mg/dL (9-23); Calcium 8.8 mg/dL (8.3-10.6); Carbon Dioxide 23.7 mMol/L (20.0-31.0); Chloride 104 mMol/L (98-107); Creatinine (Component) 1.5 mg/dL (0.6-1.3); Estimated Creatinine Clearance 36.3 mL/min (>60); Glucose 196 mg/dL (74-106); Osmolality,Calculated 283 (275-295); Sodium 136 mMol/L (136-145); eGFR 35 See Note
[2024-08-18] MEDS: INSULIN GLARGINE (Lantus) 5 UNIT/0.05 ML (PER 5 UNITS) 20 UNIT SC (08:57)
[2024-08-18] MEDS: AMIODARONE HCL 200 MG TABLET PO (08:58)
[2024-08-18] MEDS: cefTRIAXone/D5w 1gm IV premix 50 ML IV (09:05)
[2024-08-18] MEDS: HYDROcodone/APAP 10/325 TAB PO (09:15)
[2024-08-18] MEDS: APIXABAN 2.5 MG TABLET PO ×2 (09:16→20:58)
[2024-08-18 09:19] LABS: Magnesium 1.8 mg/dL (1.6-2.6)
[2024-08-18] MEDS: NIFEdipine XL 30 MG TABCR PO (09:19)
--- NOTE | 2024-08-18 11:41 | ESPR_ITS ---
<Statement entered by Sherrill Birch MD - 09/03/24 09:27> I reviewed above note and agree with findings and plans. I have also personally examined the patient with medicine team and went over assessment and plan with medical team including strategy intern and resident physician. Documentation for date of: 08/18/24 Subjective Subjective Interval history: Patient states that she has back pain that makes movement painful. Otherwise she feels fine. She states that she lives with her friend. She is tolerating her diet well and states she ate all of her breakfast. She denies nausea or vomiting. She also states that she takes Dilaudid 8mg 5 times a day. The least amount she takes is 8mg four times a day. Exam Vital Signs Temp Pulse Resp BP Pulse Ox O2 Del Method 98.7 F 81 17 165/55 H 92 L Room Air 08/18/24 07:43 08/18/24 09:19 08/18/24 07:43 08/18/24 09:19 08/18/24 07:43 08/18/24 07:43 Narrative Exam General: Alert, in no acute distress HEENT: Normocephalic, atraumatic, conjunctiva clear, sclera non-icteric, EOM intact, PERRL, Heart: Regular rate and rhythm, no murmur or gallop Lungs: Clear to auscultation, no wheezing Abdomen: soft, non tender, non distended Extremities: No amputations or deformities, cyanosis, or varicosities, peripheral pulses intact. trace pitting edema b/l LE Neurologic: moves all extremities spontaneously, A&Ox3 Psychiatric: Cooperative, normal mood and affect. Objective Labs 08/19/24 05:47 08/19/24 05:47 Labs: Laboratory Results - last 24 hr 08/18/24 07:29 WBC 7.8 RBC 3.98 L Hgb 12.1 Hct 36.5 MCV 92 MCH 30.4 MCHC 33.2 RDW Std Deviation 47.8 H Plt Count 148 Neut % (Auto) 63 Lymph % (Auto) 25 [place] % (Auto) 9 Eos % (Auto) 3 Baso % (Auto) 0 Neut # (Auto) 4.9 Lymph # (Auto) 2.0 [place] # (Auto) 0.7 Eos # (Auto) 0.2 Baso # (Auto) 0.0 Immature Gran # (Auto) 0.03 H Absolute Nucleated RBC 0.00 Immature Gran % 0 Nucleated RBC % 0 Sodium 136 Potassium 4.0 Chloride 104 Carbon Dioxide 23.7 Anion Gap 8 BUN 32 H Creatinine 1.5 H Estim Creat Clear Calc 36.3 L eGFR 35 L BUN/Creatinine Ratio 21 H Glucose 196 H D Calculated Osmolality 283 Calcium 8.8 Magnesium 1.8 Quality Measures Quality Measures VTE prophylaxis Advance care planning discussed with:: patient Assessment & Plan Assessment Current Active Medications: Generic Name Dose Route Start Last Admin Trade Name Freq PRN Reason Stop Dose Admin Acetaminophen 650 mg 08/16/24 22:10 Acetaminophen 325 Mg Tablet PO 09/15/24 22:09 Q6H PRN Fever >101.5 Acetaminophen 650 mg 08/17/24 13:18 08/17/24 20:37 Acetaminophen 325 Mg Tablet PO 09/16/24 07:37 650 mg Q6HR PRN Administration PAIN 1-6 (mild-mod Hydrocodone Bitart/Acetaminophen 1 tab 08/17/24 13:15 08/18/24 09:15 Hydrocodone/Apap 10/325 Tab PO 08/22/24 13:29 1 tab BID PRN Administration PAIN SCALE 7-10 (Severe Amiodarone HCl 200 mg 08/17/24 09:00 08/18/24 08:58 Amiodarone Hcl 200 Mg Tablet PO 09/16/24 08:59 200 mg QDAY YURY Administration Apixaban 2.5 mg 08/17/24 09:00 08/18/24 09:16 Apixaban 2.5 Mg Tablet PO 09/16/24 08:59 2.5 mg BID YURY Administration Dextrose 25 ml 08/16/24 22:15 Dextrose 50%-Water Inj 50 Ml Syringe IV 09/15/24 22:14 Q15MIN PRN BG 50-70 responsive npo pt Dextrose 50 ml 08/16/24 22:15 Dextrose 50%-Water Inj 50 Ml Syringe IV 09/15/24 22:14 Q15MIN PRN BG <50 OR BG <70 & pt unresponsive Gabapentin 100 mg 08/17/24 06:00 08/18/24 05:53 Gabapentin 100 Mg Capsule PO 09/16/24 05:59 100 mg TID YURY Administration Glucagon 1 mg 08/16/24 22:15 Glucagon Inj 1 Mg Vial IM Q15MIN PRN BG <70, and no IV access Hydralazine HCl 10 mg 08/18/24 08:50 Hydralazine Inj 20 Mg/Ml Vial IV 09/16/24 15:51 Q4HR PRN SBP > 170 Ceftriaxone Sodium/Dextrose 50 mls @ 100 mls/hr 08/17/24 09:00 08/18/24 09:05 Rocephin/D5w 1gm Iv Premix IV 08/24/24 08:59 100 mls/hr QDAY YURY Administration Sodium Chloride 500 mls @ 999 mls/hr 08/18/24 11:37 Ns IV 08/18/24 12:07 .Q31M ONE Insulin Glargine 20 unit 08/18/24 09:00 08/18/24 08:57 Insulin Glargine (Lantus) 5 Unit/0.05 Ml (Per 5 Units) SC 09/17/24 08:59 20 unit QDAY YURY Administration Insulin Human Regular 0 unit 08/17/24 07:30 08/18/24 11:33 Insulin Hum Regular 1 Unit/0.01 Ml (Per Unit) SC 09/16/24 07:29 4 unit ACHS YURY Administration Protocol Levothyroxine Sodium 75 mcg 08/17/24 06:00 08/18/24 05:53 Levothyroxine Sodium 25 Mcg Tablet PO 09/16/24 05:59 75 mcg ACBR YURY Administration Nifedipine 30 mg 08/18/24 09:00 08/18/24 09:19 Nifedipine Xl 30 Mg Tabcr PO 09/17/24 08:59 30 mg QDAY YURY Administration Sennosides 1 tab 08/17/24 14:21 Senna/Docusate Sod 1 Tab Tablet PO 09/16/24 14:20 QDAY PRN CONSTIPATION Protocol Plan Kassi is a 79 F Hx of DM II, HFpEF, Afib on eliquis, Hypothyroidism, HTN, chronic back pain, S/P pacemaker 2022 who presents after a fall at her PCP. No fracture or bleed was found after imaging. However, patient was confused on exam and UA showed infection. Patient will be admitted for AMS 2/2 UTI. #Acute toxic encephalopathy 2/2 UTI #Sepsis Ruled out UA showed turbid urine with WBC>2035HPF, 2+ bacteria WBC 14.7, Afebrile, no tachycardia/tachypnea, saturating well on RA, mildly hypertensive -Ceftriaxone 1g QD IV -pending urine culture; BCx2 negative after 24 hours -Tylenol 650mg PRN fever #Acute kidney injury Cr 1.4->1.5 today -500mL NS bolus -Hx of HFpEF, trace pitting edema on exam, judicious with IVF and encourage PO intake -Monitor CMP -Avoid Nephrotoxic drugs #Ground level Fall - Likely multifactorial, including possible orthostatic hypotension, medication side effects, or underlying infection. No acute fractures identified - Physical therapy, initiate early mobility evaluation to prevent deconditioning - PT eval #Hx of chronic back pain 8mg Dilaudid 30 tablets per month takes PRN -10mg [place] BID PRN -Gabapentin 100mg TID -Tylenol 650mg q6Hr PRN -Monitor for opioid withdrawal #IDDM Home dose 30u glargine -30u glargine QAM -SSI #Hx Hypertension -Hold losartan due to KRYSTAL -Hydralazine SBP> 180 q4hr PRN -Nifedipine 30 QD PO -Will monitor #Hx Atrial fibrillation #Heart failure with preserved ejection fraction 50-55% #Hx of Pacemaker -Eliquis 2.5 mg PO BID -Continue Amiodarone 200 mg PO Qday -Med/tele #Hx Hypothyroidism - Levothyroxine 75mcg PO QD #Hx of Depression -Buproprion 200mg BID PO -Escitalopram 20mg QD PO Health Maintenance: Disp: Med/tele FEN:Cardiac diet GI: not indicated DVT: Eliquis 2.5mg BID Lines: PIV Code: Full The patient's plan was discussed with attending Dr. Birch and senior resident Dr. Yenni Rodriguez, PGY1 Internal Medicine Senior resident attestation: Patient evaluated and examined at the bedside, plan of care discussed with rest of the team including my attending physician, except as noted. #Acute toxic encephalopathy, like secondary to UTI: Now improving, patient is A and O x 2, she is a bit slow to respond but is aware that she was confused previously. Possible altered mental status due to underlying UTI. #Opioid use disorder: Patient takes Dilaudid 8 mg p.o. daily, patient reported taking more than 1 pill at times. Takes opioids due to severe backache. We are concern for altered mental status, reluctant to start her back to her home dose as mental status is still not back to baseline. Will start her on [place] 10 mg as needed, if pain control is adequate we will consider alternative medications. Patient is a candidate for methadone or Suboxone, should follow outpatient after discharge. #KRYSTAL: KRYSTAL likely secondary to prerenal etiology, IV fluids. Will monitor closely #Hypertensive urgency: Now resolved, hydralazine added for high blood pressure as needed. Holding off on losartan due to concurrent KRYSTAL. #History of diabetes mellitus: Long-acting insulin plus sliding scale insulin, Quresh PGY2
[2024-08-18] MEDS: SODIUM CHLORIDE 0.9% 500 ML 500 ML 999 ML IV (12:05)
[2024-08-18] MEDS: INSULIN GLARGINE (Lantus) 5 UNIT/0.05 ML (PER 5 UNITS) 10 UNIT SC (12:05)
[2024-08-18] MEDS: ACETAMINOPHEN 325 MG TABLET 650 MG PO (12:16)
[2024-08-18] MEDS: ESCITALOPRAM OXALATE 10 MG TABLET 20 MG PO (12:55)
--- NOTE | 2024-08-18 16:11 | PC.SS ---
Rounding: BP elevated poss dc 08/19
[2024-08-18] MEDS: traZODone HCL 50 MG TABLET 150 MG PO (20:57)
[2024-08-18] MEDS: BuPROPion HCL 100 MG TABLET 200 MG PO (21:19)
[2024-08-19] VITALS (7 sets, daily range): BP systolic 128–164; BP diastolic 58–79; PULSE 65–74; RESP 15–20; TEMP 36.3–36.6; O2SAT 93–95; BMI 35.4
[2024-08-19] MEDS: LEVOTHYROXINE SODIUM 25 MCG TABLET 75 MCG PO (05:26)
[2024-08-19] MEDS: GABAPENTIN 100 MG CAPSULE PO ×2 (05:26→14:30)
[2024-08-19 06:21] LABS: Basophils % (Auto) 0 % (0-2.5); Eosinophils # (Auto) 0.3 Thou/mm3 (0.0-0.5); Eosinophils % (Auto) 3 % (0-10); Hematocrit 37.1 % (36.0-46.0); Hemoglobin 12.3 g/dL (12.0-16.0); Immature Granulocytes % (Auto) 0 % (0-0); Immature Granulocytes Auto 0.04 Thou/mm3 (0.00-0.00); Lymphocytes # (Auto) 3.1 Thou/mm3 (1.0-4.8); Lymphocytes % (Auto) 34 % (10-50); Mean Corpuscular HGB Conc 33.2 g/dl (31.0-37.0); Mean Corpuscular Hemoglobin 30.4 pg (25.0-35.0); Mean Corpuscular Volume 92 fL (80-100); Monocytes % (Auto) 11 % (0-12); Neutrophils # (Auto) 4.8 Thou/mm3 (1.8-7.7); Neutrophils % (Auto) 52 % (37-80); Nucleated Red Blood Cell % 0 /100 WBC (0); Platelet Count 113 Thou/mm3 (140-440); RDW Standard Deviation 48.2 fL (36.4-46.3); Red Blood Count 4.04 Miln/mm3 (4.00-5.20); White Blood Count 9.1 Thou/mm3 (3.6-11.0)
[2024-08-19 06:38] LABS: Anion Gap 9 (7-16); BUN/Creatinine Ratio 25 Ratio (12-20); Blood Urea Nitrogen 33 mg/dL (9-23); Calcium 8.8 mg/dL (8.3-10.6); Carbon Dioxide 22.2 mMol/L (20.0-31.0); Chloride 104 mMol/L (98-107); Creatinine (Component) 1.3 mg/dL (0.6-1.3); Estimated Creatinine Clearance 41.9 mL/min (>60); Glucose 155 mg/dL (74-106); Osmolality,Calculated 280 (275-295); Potassium 4.6 mMol/L (3.4-5.1); Sodium 135 mMol/L (136-145); eGFR 42 See Note
[2024-08-19] MEDS: INSULIN HUM REGULAR 1 UNIT/0.01 ML (PER UNIT) SC ×2 (07:57→12:05)
--- NOTE | 2024-08-19 09:45 | PC.SS ---
Hospital Bed Patient?s diagnosis requires positioning of the head or upper body to be elevated more than 30 degrees. Also the diagnosis requires positioning in order to alleviate pain and if the patient requires frequent changes in the body positioning and/or has an immediate need for change in the body position. Pillows and wedges have been considered and ruled out. Bedside Commode Patient is physically incapable of utilizing regular toilet facilities because his or her diagnosis confines the patient to a single room. Patient is confined to a single level, and there is no toilet on that level; patient cannot access the toilet facilities in a timely manner due to lack of ambulation [employer] LIFT Patient requires transfer between the bed, chair, wheelchair and commode that requires the assistance of more than one person. Without the use of the lift the patient would be confined or a dependent transfer.
[2024-08-19] MEDS: ESCITALOPRAM OXALATE 10 MG TABLET 20 MG PO (09:54)
[2024-08-19] MEDS: SENNA/DOCUSATE SOD 1 TAB TABLET PO (09:54)
[2024-08-19] MEDS: AMIODARONE HCL 200 MG TABLET PO (09:54)
[2024-08-19] MEDS: APIXABAN 2.5 MG TABLET PO (09:55)
[2024-08-19] MEDS: INSULIN GLARGINE (Lantus) 5 UNIT/0.05 ML (PER 5 UNITS) 30 UNIT SC (09:55)
[2024-08-19] MEDS: cefTRIAXone/D5w 1gm IV premix 50 ML IV (09:55)
[2024-08-19] MEDS: NIFEdipine XL 30 MG TABCR PO (09:55)
[2024-08-19] MEDS: HYDROcodone/APAP 10/325 TAB PO (09:55)
[2024-08-19] MEDS: BuPROPion HCL 100 MG TABLET 200 MG PO (10:41)
--- NOTE | 2024-08-19 11:25 | PC.SS ---
SS has met with pt to confirm DME, hospital bed, bedside commode, and hugo lift. SS has faxed DME order to [facility] due to [facility] not being on [facility].
--- NOTE | 2024-08-19 12:08 | ESDS_ITS ---
<Statement entered by Sherrill Birch MD - 09/03/24 09:36> I reviewed above note and agree with findings and plans. I have also personally examined the patient with medicine team and went over assessment and plan with medical team including internal medicine doctor and resident physician. Planned Discharge Date 08/19/24 DS: Providers Provider Date of admission: 08/16/24 22:10 Primary care physician: Physician No Primary/Family Admitting Provider: Joe Skinner MD Attending Provider on Admission: Joe Skinner MD Consults: 08/16/24 22:24 Referral Physical Therapy Routine Comment: Physician Instructions: 08/18/24 12:11 Referral Physical Therapy Routine Comment: Physician Instructions: Instructions: wheelchair bound at home from chronic back pain, SNF/HH eval Attending Provider on DC: Kirk Ayers MD Discharging Provider: Kirk Ayers MD DS: Diagnosis Problem List Completed Was Problem List Reviewed/Reconciled?: Yes Hospital Course Hospital Course Hospital course: 79 y/o F with PMHx of insulin dependent diabetes, HFpEF 50-55%, Atrial fibrillation on eliquis, hypertension, chronic back pain, and s/p pacemaker placement 2022 who was brought by EMS due to a fall. No fracture or bleed was found after imaging. However, patient was confused on exam and UA showed signs of infection. Admitted due to acute metabolic encephalopathy secondary to UTI. During hospital course patient was given IV antibiotics such as ceftriaxone and transitioned to PO antibiotics. Patient on admission had acute kidney injury likely in the setting of dehydration and was given IV fluid hydration and later improved back to normal. Patient has hx of chronic back pain and some of her pain regimen was resumed although there is some concern for medication induced encephalopathy, so regimen was started gradually. In regards to patients atrial fibrillation and heart failure with preserved ejection fraction patients, home medications amiodarone and eliquis were resumed. The patient is stable, ambulatory, afebrile and tolerating Per oral medications at the time of discharge. The patient understood and agreed to the treatment plan. Follow up with Primary care physician with labs within 3-5 days of discharge. If symptoms persist or worsen, return to the Emergency Department. Problem List: #Acute toxic encephalopathy #UTI #Ground level Fall #Acute kidney injury-resolved #Hx of chronic back pain #IDDM #Hx Hypertension #Hx Atrial fibrillation #Heart failure with preserved ejection fraction 50-55% #Hx of Pacemaker #Hx Hypothyroidism #Hx of depression Case discussed with my senior Dr. Hyman PGY-[address] Queta Ayers MD PGY-1 Senior resident attestation: Patient evaluated and examined at the bedside, plan of care discussed with rest of the team including my attending physician, except as noted. Patient at this time is medically stable for discharge. Patient is recommended to continue antibiotic therapy for 5 more days for urinary tract infection. Recommended increasing anti-hypertensive medication amlodipine from 5 to 10mg every day, losartan was stopped due to acute kidney injury. Follow up with primary care physician within 5 days of discharge. Patient also instructed to follow up with a pain specialist in regards to her opioid use which is of concern, possibly consider methadone or suboxone by pain specialist. Follow up with Neurology, Dr. Espinosa for concern of parkinsonism due to tremors and frequent falls. If patients symptoms recur or worsen patient is instructed to return to the ED. Yenni PGY2 Status at Discharge Functional status at discharge: independent ambulation Overall status at discharge: patient is back to baseline Time Spent with Patient Time attestation: Total time spent providing and/or coordinating discharge services: Time spent: Greater than 30 minutes Exam Vital Signs Temp Pulse Resp BP Pulse Ox O2 Del Method 97.4 F 74 15 158/61 H 95 Room Air 08/19/24 08:00 08/19/24 09:55 08/19/24 08:00 08/19/24 09:55 08/19/24 08:00 08/19/24 08:00 Narrative Exam Physical Exam GENERAL: NAD, NC/AT, responsive/cooperative. A&Ox3 HEENT: Moist mucosa. Eyes open, symmetrical, & clear CARDIO: No chest pain on palpation. Heart RRR, no obvious murmurs PULM: No noted coughing/dyspnea. Lungs CTA B/L, no R/W/R GI: Abdomen soft, nondistended, no pain on palpation. 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 Mena catheter SKIN/MSK/EXT: No wounds/rashes/edema/amputations, no pain on palpation. Pedal pulses present B/L NEURO: AAOx3, no focal neuro deficits Discharge Plan Plan Patient Disposition: HOME (Self Care) Care Plan Goals: Recommend continuing antibiotic for 5 more days for urine tract infection. Recommend increasing antihypertensive medication amlodipine from 5 to 10 mg/day, recommending stopping losartan due to acute kidney injury. You will need to follow-up with your primary care physician within 5 days of discharge from the hospital to reconcile medications. Recommend referral to a pain specialist, as we are concerned about excessive use of opioids, possibly consider methadone or Suboxone by a pain specialist. Recommend referral to neurologist, Dr Espinosa due to concern for parkinsonism due to recurrent falls and tremors. In case of urgent return to the emergency room. Prescriptions/Referrals Prescriptions/Med Rec: New cephalexin 500 mg capsule 500 mg PO BID Qty: 10 0RF amlodipine 10 mg tablet 10 mg PO QDAY Qty: 30 0RF Continued Eliquis 2.5 mg tablet 2.5 mg PO BID Hold Instructions: Resume on 05/03/24. HOLD until follow up with PCP , not required pioglitazone [Actos] 15 mg tablet 15 mg PO QDAY Hold Instructions: Resume on 05/03/24. HOLD until follow up with PCP metoclopramide HCl 10 mg Tablet 10 mg PO BID amiodarone 200 mg tablet 200 mg PO QDAY Patient Comments: TAKE 1 TABLET BY MOUTH EVERY DAY amlodipine 5 mg tablet 5 mg PO QDAY Patient Comments: TAKE 1 TABLET BY MOUTH EVERY DAY bupropion HCl 200 mg tablet sustained-release 12 hr 200 mg PO BID Patient Comments: TAKE 1 TABLET BY MOUTH TWICE A DAY escitalopram oxalate 20 mg tablet 20 mg PO QDAY Patient Comments: TAKE 1 TABLET BY MOUTH EVERY DAY levothyroxine 75 mcg Tablet 75 mcg PO QDAY atorvastatin 10 mg Tablet 10 mg PO QDAY insulin glargine [Lantus Solostar U-100 Insulin] 100 unit/mL (3 mL) Insulin Pen 30 unit SUBCUT QAM Hold Instructions: Resume on 05/03/24. HOLD until follow up with PCP trazodone 150 mg tablet 150 mg PO HS Hold Instructions: f/u with pcp Patient Comments: TAKE 1 TABLET BY MOUTH AT BEDTIME (DME) FreeStyle Jc 2 [place] Misc See Rx Instructions .Route Qty: 1 0RF Rx Instructions: As directed (DME) FreeStyle Jc 2 Sensor Kit See Rx Instructions .Route Qty: 1 0RF Rx Instructions: As directed naloxone [Narcan] 4 mg/actuation spray,non-aerosol 4 mg intranasal Q3M PRN (Reason: opioid overdose) Qty: 2 2RF Rx Instructions: spray 1 dose into ONE nostril; alternate nostrils w each dose until help arrives Discontinued losartan 50 mg tablet 50 mg PO QDAY Qty: 30 0RF Referrals: Lang Sandoval MD [Physician] - No Primary/Family,Physician [Primary Care Provider] - Patient/Caregiver Discharge Instructions Education Materials: COPD Diabetes, Complementary Care for Pain, Chronic Pain Therapies Mind Body, Acute Kidney Failure Dc Print Language: [place]arag[place] Stand Alone Forms: Doris Award Info., Patient Portal Info Letter Discharge Order Discharge Orders: Discharge (Routine); Ordered 08/19/24 Ordered By: Kirk Ayers Quality Discharge Quality Measures VTE prophylaxis
--- NOTE | 2024-08-19 12:40 | PC.SS ---
SS has attempted several times today to contact pt's friend, Daja but she does not answer (SS is unable to leave voicemail). SS also attempted to contact her granddaughter, Idalia at [phone] but was only able to leave voicemail. Pt states she does not have [place] to get into her home.
--- NOTE | 2024-08-19 14:11 | PC.NURSE ---
Spoke with Marialuisa, patients primary care provider, she can be here within the hour to go over discharge and transport patient home.
--- NOTE | 2024-08-19 15:07 | PC.SS ---
After several attempts SS was unable to contact caregiver, Daja. SS received call from Idalia, patient's granddaughter who states she went to patient's home and spoke to Daja. Daja will come to hospital and corn picker pt. They are aware pt is ready for dc. SS met with bedside nurse, Meche who explained she has been contacted by Daja. Pt is aware to obtain her house keys when being hospitalized.
--- NOTE | 2024-08-27 11:07 | PC.SS ---
SS received call from Jenelle at [facility] who explained she has been trying to contact pt to deliver DME but has been unsuccessful. ISAEL provided her with patient's granddaughter, Idalia's phone #.
== END 2024-08-19 16:06 | disposition home or self-care (01) | DRG 689 ==
LOC: SERX 22:29 → SERHOLD 22:48 → S3SX 23:54
PROVIDERS: Nurse Practitioner Family; Admitting Provider Internal Medicine; Emergency Provider Emergency Medicine; Visit Provider Internal Medicine
DX: N39.0 Urinary tract infection, site not specified (principal); G92.8 Other toxic encephalopathy; I48.20 Chronic atrial fibrillation, unspecified; I50.32 Chronic diastolic (congestive) heart failure; N17.9 Acute kidney failure, unspecified; G89.29 Other chronic pain; M54.9 Dorsalgia, unspecified; Z95.0 Presence of cardiac pacemaker; Z79.01 Long term (current) use of anticoagulants; I11.0 Hypertensive heart disease with heart failure; Z79.4 Long term (current) use of insulin; E11.9 Type 2 diabetes mellitus without complications; E03.9 Hypothyroidism, unspecified; W18.30XA Fall on same level, unspecified, initial encounter; F32.A Depression, unspecified; F11.10 Opioid abuse, uncomplicated
CPT/HCPCS: 36415; 70450; 71045; 72170; 72192; 80048; 80053; 81001; 83605; 83735; 83880; 84145; 84439; 84443; 85025; 85610; 85730; 86140; 87040; 87086; 93005; 96365; 96366; 97162; 99285; J0360; J0696; J1815; J7030; J7040; A9270

== ENCOUNTER 2024-09-05 03:36 | Emergency (ER) | payer OTHER, SELFPAY ==
--- NOTE | 2024-09-05 04:19 | PC.NURSE ---
PT BROUGHT TO ER FROM HOME VIA [facility], EMS REPORTED PT C/O ABD PAIN, NO N/D, NOT ON RESPIRATORY DISTRESS.
[2024-09-05 04:36] VITALS: BP 128/63; PULSE 72; RESP 18; TEMP 36.7; O2SAT 90
[2024-09-05 05:29] VITALS: BP 134/53; PULSE 75; RESP 22; TEMP 37.3; O2SAT 100
--- NOTE | 2024-09-05 05:32 | PC.NURSE ---
vs taken, new brief and mireille care complete.
--- NOTE | 2024-09-05 05:44 | PD.EDRME ---
Rapid Medical Screening Exam RME Arrival date/time: 09/05/24 03:36 Chief Complaint: Abdominal Pain Time Seen by Provider: 09/05/24 06:09 Vital signs: Vital Signs Temperature 98.0 F 09/05/24 04:36 Pulse Rate 72 09/05/24 04:36 Respiratory Rate 18 09/05/24 04:36 Blood Pressure 128/63 09/05/24 04:36 Pulse Oximetry (%) 90 L 09/05/24 04:36 Oxygen Delivery Method Room Air 09/05/24 04:36 RME Narrative: 79yo female BIBA from home presents to the ED for a chief complaint of dysuria. Patient states she feels like she has a UTI, so she came in for evaluation.
[2024-09-05 06:10] LABS: Collection Type, Urine Catheter
[2024-09-05 06:27] LABS: Bilirubin,Urine Negative (Negative); Blood,Urine 2+ (Negative); Color,Urine Yellow (Lt Yel-Yel); Glucose, Urine Trace (Negative); Ketones,Urine Negative (Negative); Leukocyte Esterase,Urine Positive (Negative); Nitrite,Urine Negative (Negative); Protein,Urine 3+ (Neg - Trace); RBC,Urine 26 /hpf (0-3); Specific Gravity,Urine 1.022 (1.001-1.035); Squamous Epithelial Cell,Urine 2 /hpf (0-5); Urobilinogen,Urine Negative mg/dL (0.0-1.0); WBC,Urine 329 /hpf (0-5)
[2024-09-05 06:28] LABS: Basophils % (Auto) 0 % (0-2.5); Eosinophils # (Auto) 0.2 Thou/mm3 (0.0-0.5); Eosinophils % (Auto) 2 % (0-10); Hematocrit 35.9 % (36.0-46.0); Hemoglobin 11.9 g/dL (12.0-16.0); Immature Granulocytes % (Auto) 0 % (0-0); Immature Granulocytes Auto 0.03 Thou/mm3 (0.00-0.00); Lymphocytes # (Auto) 1.8 Thou/mm3 (1.0-4.8); Lymphocytes % (Auto) 22 % (10-50); Mean Corpuscular HGB Conc 33.1 g/dl (31.0-37.0); Mean Corpuscular Hemoglobin 30.3 pg (25.0-35.0); Mean Corpuscular Volume 91 fL (80-100); Monocytes # (Auto) 0.7 Thou/mm3 (0.0-0.8); Monocytes % (Auto) 8 % (0-12); Neutrophils # (Auto) 5.5 Thou/mm3 (1.8-7.7); Neutrophils % (Auto) 67 % (37-80); Nucleated Red Blood Cell % 0 /100 WBC (0); Platelet Count 190 Thou/mm3 (140-440); RDW Standard Deviation 46.5 fL (36.4-46.3); Red Blood Count 3.93 Miln/mm3 (4.00-5.20); White Blood Count 8.2 Thou/mm3 (3.6-11.0)
[2024-09-05 06:32] LABS: Clarity,Urine Hazy (Clear/Hazy); Culture Indicated,Urine Yes
[2024-09-05 06:41] LABS: Alanine Aminotransferase 29 U/L (10-49); Albumin/Globulin Ratio 1.6 (1.2-2.2); Alkaline Phosphatase 146 U/L (46-116); Anion Gap 8 (7-16); Aspartate Amino Transferase 68 U/L (0-34); BUN/Creatinine Ratio 17 Ratio (12-20); Bilirubin,Total 0.6 mg/dL (0.3-1.2); Blood Urea Nitrogen 20 mg/dL (9-23); Calcium 10.1 mg/dL (8.3-10.6); Calcium (Corrected) 10.1 mg/dL (8.5-10.1); Carbon Dioxide 24.3 mMol/L (20.0-31.0); Chloride 108 mMol/L (98-107); Creatinine (Component) 1.2 mg/dL (0.6-1.3); Globulin 2.5 gm/dL (2.3-3.5); Glucose 184 mg/dL (74-106); Lipase 22 U/L (12-53); Osmolality,Calculated 287 (275-295); Potassium 4.1 mMol/L (3.4-5.1); Sodium 140 mMol/L (136-145); Total Protein 6.5 gm/dL (5.7-8.2); eGFR 46 See Note
[2024-09-05 07:00] LABS: Amphetamine/Methamp Scrn,U Negative (Negative); Barbiturate Screen,Urine Negative (Negative); Benzodiazepines Screen,Urine Negative (Negative); Benzoylecgonine Screen, Ur Negative (Negative); Fentanyl Screen,Urine Negative (Negative); Opiate Screen,Urine Positive (Negative); THC Screen,Urine Negative (Negative)
[2024-09-05 07:34] VITALS: BP 129/63; PULSE 67; RESP 16; O2SAT 94
--- NOTE | 2024-09-05 07:35 | PC.NURSE ---
Patient alert and responsive, sleepy but answers all questions appropiately. Patient states is mostly wheelchair bound at home and has a caregiver daily unsure of hours of caregiver. Patient c/o lower abd pain with burning pain with urination, patient wears a brief. Patient updated with plan of care, pending lab results. Patient denies any other needs at this time. Call light is within reach.
--- NOTE | 2024-09-05 08:15 | PD.EDABDPN ---
ED Abdominal Pain RME/HPI General Chief Complaint: Abdominal Pain Stated complaint: ABD PAIN Time seen by provider: 09/05/24 06:09 Arrival date/time: 09/05/24 03:36 Limitations: no limitations RME / HPI RME / HPI narrative: 79yo female BIBA from home presents to the ED for a chief complaint of dysuria. Patient states she feels like she has a UTI, so she came in for evaluation. DR. LIMON MAIN ED EVALUATION 79 year old female patient presents to the ED for evaluation of abdominal pain and dysuria beginning yesterday. Reports abdominal pain is located most to her lower abdomen, described as pressure in sensation, rating as moderate. Accompanied by dysuria, back pain, and nausea. No hematuria or urinary urgency/frequency reported. Denies fever, chills, sweating. Denies chest pain, cough, shortness of breath. Denies vomiting, diarrhea, constipation. Related Data Home Medications ?Medication ?Instructions ?Recorded ?Confirmed metoclopramide HCl 10 mg tablet 10 mg PO BID 02/28/18 09/05/24 levothyroxine 75 mcg tablet 75 mcg PO QDAY 02/14/23 09/05/24 amiodarone 200 mg tablet 200 mg PO QDAY 04/10/23 09/05/24 amlodipine 5 mg tablet 5 mg PO QDAY 04/10/23 09/05/24 bupropion HCl 200 mg tablet,12 hr 200 mg PO BID 04/10/23 09/05/24 sustained-release escitalopram oxalate 20 mg tablet 20 mg PO QDAY 04/10/23 09/05/24 apixaban 2.5 mg tablet (Eliquis) 2.5 mg PO BID 11/06/23 09/05/24 pioglitazone 15 mg tablet (Actos) 15 mg PO QDAY 11/06/23 09/05/24 atorvastatin 10 mg tablet 10 mg PO QDAY 04/15/24 09/05/24 insulin glargine 100 unit/mL (3 30 unit subcut QAM 04/15/24 09/05/24 mL) subcutaneous pen (Lantus Solostar U-100 Insulin) trazodone 150 mg tablet 150 mg PO HS 04/15/24 09/05/24 Previous Rx's ?Medication ?Instructions ?Recorded naloxone 4 mg/actuation nasal 4 mg intranasal Q3M PRN opioid 04/21/24 spray (Narcan) overdose #2 ea amlodipine 10 mg tablet 10 mg PO QDAY #30 tabs 08/19/24 cephalexin 500 mg capsule 500 mg PO BID #10 caps 08/19/24 cephalexin 500 mg capsule 500 mg PO QID #28 caps 09/05/24 Allergies Allergy/AdvReac Type Severity Reaction Status Date / Time Sulfa (Sulfonamide Allergy Severe ITCHY Verified 11/06/23 15:58 Antibiotics) tomato Allergy Severe Rash Verified 04/15/24 18:32 Review of Systems Review of Systems Narrative Review of Systems: GEN: No fever, no chills, no weight loss EYES: No discharge, no visual changes, no pain HEENT: No ear pain, no congestion, no sore throat PULM: No shortness of breath, no cough, no congestion CV: No chest pain, no dyspnea on exertion, no palpitations GI: +nausea, no vomiting, no diarrhea, + pain, no constipation : No frequency, no urgency, +dysuria MUSC/SKEL: No joint pain, +back pain SKIN: No rash NEURO: No weakness, no headache Past Medical History Past Medical History CARDIAC: Positive Cardiac Disorders, Atrial Fibrillation and Hypertension GASTROINTESTINAL: Positive Gastroesophageal Reflux Disease MUSCULOSKELETAL: Positive Degenerative Disk Disease ENDOCRINE: Positive Diabetes Mellitus Type 2 and Hypothyroidism PSYCHO/SOCIAL: Positive Bipolar Disorder, Depression and Anxiety OTHER HISTORY: Positive Blood Transfusions Surgical History SURGICAL: Positive Abdominal Surgery and Hysterectomy Social History SMOKING STATUS: Former smoker SUBSTANCE USE: does not use OCCUPATION: Retired. Single. ED Exam General Limitations: Present no limitations General appearance: Present alert and in no apparent distress Head Head exam: Present atraumatic, normocephalic and normal inspection Eye Eye exam: Present normal appearance, PERRL and EOMI ENT ENT exam: Present normal exam, normal oropharynx and mucous membranes moist Neck Neck exam: Present normal inspection, full ROM and trachea midline Chest Chest inspection: Present normal inspection and symmetric chest wall rise Respiratory Respiratory exam: Present normal lung sounds bilaterally Cardiovascular Cardiovascular exam: Present regular rate, normal rhythm and normal heart sounds Abdominal Exam Abdominal exam: Present soft and normal bowel sounds; Absent tenderness, guarding, rebound or rigidity Extremities Exam Extremities exam: Present normal inspection and full ROM Back Exam Back exam: Present normal inspection and full ROM Neurological Exam Neurological exam: Present alert, oriented X3 and CN II-XII intact Psychiatric Psychiatric exam: Present normal affect and normal mood Skin Skin exam: Present warm, dry, intact and normal color Course Quality Measures none Orders Category Date Time Status In and Out Catheter X1 Care 09/05/24 06:44 Completed CBC Stat Lab 09/05/24 06:11 Completed Comprehensive Metabolic Panel Stat Lab 09/05/24 06:11 Completed Drug Screen,Urine Stat Lab 09/05/24 06:05 Completed Lipase Stat Lab 09/05/24 06:11 Completed Urinalysis, C/S if Indicated Stat Lab 09/05/24 06:05 Completed Urine Culture Stat Lab 09/05/24 06:05 Received HYDROcodone*/APAP 5/325 [[place] 5/325] Med 09/05/24 07:58 Discontinued 1 tab PO X1 ONE Sodium Chloride 0.9% 1000 ml [Ns] 1,000 ml Med 09/05/24 07:55 Discontinued IV 999 mls/hr cefTRIAXone/D5w 1gm IV premix [Rocephin/D5w 1gm IV Med 09/05/24 09:30 Discontinued premix] 50 ml IV X1 Reevaluation(s) Reevaluation #1: Patient remains clinically stable throughout the emergency department visit. We reviewed all the results, analysis, and treatment plans. Patient is amenable to discharge. Strict return precautions were outlined. Patient was discharged in stable condition. Time: 10:35 Vital Signs Vital signs: Vital Signs Temperature 98.0 F 09/05/24 04:36 Pulse Rate 72 09/05/24 04:36 Respiratory Rate 18 09/05/24 04:36 Blood Pressure 128/63 09/05/24 04:36 Pulse Oximetry (%) 90 L 09/05/24 04:36 Oxygen Delivery Method Room Air 09/05/24 04:36 Pulse ox is 90% on room air which is low. Abdominal Pain MDM Patient data External records reviewed:: [facility] previous records (I reviewed UC from 08/18/24 that was negative. ) Clinical information provided by:: patient Social determinants that could affect healthcare access:: none Patient has the following chronic illnesses:: Afib, HTN, DM How is presenting disease/condition affected by chronic disease/condition?: uneffected by Evaluation data The following diagnostics were reviewed and interpreted by me:: lab results Lab and/or radiology exams considered but not ordered:: None Interpretation Summary: UA shows 329 WBC and, + Leukocyte esterase. No bacteria Medications / Prescriptions Medications or Prescriptions considered but not ordered:: none Medication administrations:: Medication Administration History Discontinued Medications Hydrocodone Bitart/Acetaminophen (Hydrocodone/Apap 5/325 Tablet) 1 tab PO X1 ONE Stop: 09/05/24 07:59 Last Admin: 09/05/24 09:35 Dose: 1 tab Documented By: HO Sodium Chloride (Ns) 1,000 mls @ 999 mls/hr IV .Q1H1M ONE Stop: 09/05/24 08:55 Last Admin: 09/05/24 10:09 Dose: 999 mls/hr Documented By: HO Ceftriaxone Sodium/Dextrose (Rocephin/D5w 1gm Iv Premix) 50 mls @ 100 mls/hr IV X1 ONE Stop: 09/05/24 09:59 Last Admin: 09/05/24 10:11 Dose: 100 mls/hr Documented By: HO See above Consultations Consultation(s) initiated? (list below): No Diagnosis Differential diagnosis abdominal pain: abdominal pain, calculus of kidney, constipation and other (UTI) Most likely diagnosis given after review of the tests above:: UTI Admission Indicated Admission indicated?: not indicated Admission Request Was there a request for admission?: No Disposition Plan Disposition Plan: Discharge Discharge Attestation Discharge Attestation: The patient and all family members were given an opportunity to ask questions and understood the discharge instructions. Discharge instructions specifically effects, indications for sooner follow up or return to the emergency department, and the expected course of current diagnosis. Patient condition: Stable Discharge Plan Plan Patient Disposition: HOME (Self Care) Prescriptions/Referrals Prescriptions/Med Rec: New cephalexin 500 mg capsule 500 mg PO QID Qty: 28 0RF No Action Eliquis 2.5 mg tablet 2.5 mg PO BID Hold Instructions: Resume on 05/03/24. HOLD until follow up with PCP , not required pioglitazone [Actos] 15 mg tablet 15 mg PO QDAY Hold Instructions: Resume on 05/03/24. HOLD until follow up with PCP metoclopramide HCl 10 mg Tablet 10 mg PO BID amiodarone 200 mg tablet 200 mg PO QDAY Patient Comments: TAKE 1 TABLET BY MOUTH EVERY DAY amlodipine 5 mg tablet 5 mg PO QDAY Patient Comments: TAKE 1 TABLET BY MOUTH EVERY DAY bupropion HCl 200 mg tablet sustained-release 12 hr 200 mg PO BID Patient Comments: TAKE 1 TABLET BY MOUTH TWICE A DAY escitalopram oxalate 20 mg tablet 20 mg PO QDAY Patient Comments: TAKE 1 TABLET BY MOUTH EVERY DAY levothyroxine 75 mcg Tablet 75 mcg PO QDAY atorvastatin 10 mg Tablet 10 mg PO QDAY insulin glargine [Lantus Solostar U-100 Insulin] 100 unit/mL (3 mL) Insulin Pen 30 unit SUBCUT QAM Hold Instructions: Resume on 05/03/24. HOLD until follow up with PCP trazodone 150 mg tablet 150 mg PO HS Hold Instructions: f/u with pcp Patient Comments: TAKE 1 TABLET BY MOUTH AT BEDTIME naloxone [Narcan] 4 mg/actuation spray,non-aerosol 4 mg intranasal Q3M PRN (Reason: opioid overdose) Qty: 2 2RF Rx Instructions: spray 1 dose into ONE nostril; alternate nostrils w each dose until help arrives cephalexin 500 mg capsule 500 mg PO BID Qty: 10 0RF amlodipine 10 mg tablet 10 mg PO QDAY Qty: 30 0RF Referrals: Lang Sandoval MD [Primary Care Provider] - In 1 week Problem List Clinical Impression: UTI (urinary tract infection) Patient/Caregiver Discharge Instructions Education Materials: ED CYSTITIS Female Adult Print Language: Barbadian Stand Alone Forms: Doris Award Info., Patient Portal Info Letter
[2024-09-05] MEDS: HYDROcodone/APAP 5/325 TABLET 1 TAB PO (09:35)
[2024-09-05] MEDS: SODIUM CHLORIDE 0.9% 1000 ML 1,000 ML 999 ML IV (10:09)
[2024-09-05] MEDS: cefTRIAXone/D5w 1gm IV premix 50 ML IV (10:11)
[2024-09-05 11:07] VITALS: PULSE 64; RESP 19; TEMP 36.5; O2SAT 97
[2024-09-05 12:21] VITALS: BP 108/54; PULSE 60; RESP 13; TEMP 36.5; O2SAT 99
[2024-09-05 14:26] VITALS: BP 176/94; PULSE 63; RESP 16; TEMP 36.8; O2SAT 99
== END 2024-09-05 14:30 | disposition home or self-care (01) ==
PROVIDERS: Emergency Medicine; Emergency Provider Emergency Medicine; PCP Family Medicine
DX: N39.0 Urinary tract infection, site not specified (principal)
CPT/HCPCS: 51701; 36415; 80053; 80307; 81001; 83690; 85025; 87086; 87106; 96361; 96365; 99284; J0696; J7030; A9270

== ENCOUNTER 2024-09-15 20:25 | Emergency (ER) | payer OTHER, SELFPAY ==
[2024-09-15 20:34] VITALS: BP 206/61; PULSE 73; PULSE 75; RESP 19; TEMP 36.9; O2SAT 94; O2SAT 98; BMI 42.5
--- NOTE | 2024-09-15 20:39 | PD.EDADULT ---
ED General RME/HPI General Chief complaint: General Adult/Misc Complain Stated complaint: high blood glucose Time Seen by Provider: 09/15/24 20:30 Arrival date/time: 09/15/24 20:25 CC: Elevated blood glucose level HPI patient states that she has not been able to get her blood glucose level down today to call her medicines however the blood level at home was about 400 patient's symptom is thirst denies chest pain shortness of breath difficulty breathing. Review the medical records show several admissions to this emergency room for urinary tract infection symptoms in the past 2 months. Related Data Home Medications ?Medication ?Instructions ?Recorded ?Confirmed metoclopramide HCl 10 mg tablet 10 mg PO BID 02/28/18 09/05/24 levothyroxine 75 mcg tablet 75 mcg PO QDAY 02/14/23 09/05/24 amiodarone 200 mg tablet 200 mg PO QDAY 04/10/23 09/05/24 amlodipine 5 mg tablet 5 mg PO QDAY 04/10/23 09/05/24 bupropion HCl 200 mg tablet,12 hr 200 mg PO BID 04/10/23 09/05/24 sustained-release escitalopram oxalate 20 mg tablet 20 mg PO QDAY 04/10/23 09/05/24 apixaban 2.5 mg tablet (Eliquis) 2.5 mg PO BID 11/06/23 09/05/24 pioglitazone 15 mg tablet (Actos) 15 mg PO QDAY 11/06/23 09/05/24 atorvastatin 10 mg tablet 10 mg PO QDAY 04/15/24 09/05/24 insulin glargine 100 unit/mL (3 30 unit subcut QAM 04/15/24 09/05/24 mL) subcutaneous pen (Lantus Solostar U-100 Insulin) trazodone 150 mg tablet 150 mg PO HS 04/15/24 09/05/24 Previous Rx's ?Medication ?Instructions ?Recorded naloxone 4 mg/actuation nasal 4 mg intranasal Q3M PRN opioid 04/21/24 spray (Narcan) overdose #2 ea amlodipine 10 mg tablet 10 mg PO QDAY #30 tabs 08/19/24 cephalexin 500 mg capsule 500 mg PO BID #10 caps 08/19/24 cephalexin 500 mg capsule 500 mg PO QID #28 caps 09/05/24 Allergies Allergy/AdvReac Type Severity Reaction Status Date / Time Sulfa (Sulfonamide Allergy Severe ITCHY Verified 11/06/23 15:58 Antibiotics) tomato Allergy Severe Rash Verified 04/15/24 18:32 Past Medical History Past Medical History CARDIAC: Positive Cardiac Disorders, Atrial Fibrillation and Hypertension; Negative Congestive Heart Failure RESPIRATORY: Negative Chronic Obstructive Pulmonary Disease (COPD) or Asthma GASTROINTESTINAL: Positive Gastroesophageal Reflux Disease GENITOURINARY: Negative Renal Disease MUSCULOSKELETAL: Positive Degenerative Disk Disease ENDOCRINE: Positive Diabetes Mellitus Type 2 and Hypothyroidism; Negative Diabetes Mellitus Type 1 HEMATOLOGIC: Negative Sickle Cell Disease PSYCHO/SOCIAL: Positive Bipolar Disorder, Depression and Anxiety OTHER HISTORY: Positive Blood Transfusions Surgical History SURGICAL: Positive Abdominal Surgery and Hysterectomy Social History SMOKING STATUS: Current some day smoker SUBSTANCE USE: does not use OCCUPATION: Retired. Single. ED Exam Narrative Physical exam: [General: Morbidly obese not in anyacute distress Head normocephalic HEENT: Within acceptable limits Neck is supple nontender Chest equal chest rise nontender to palpation Respiratory: Clear to auscultation no wheezes crackles or rubs CV: Rate rhythm is regular no murmurs rubs or clicks Abdomen is grossly distended secondary to body habitus soft nontender no masses positive bowel sounds all 4 quadrants Back: No CVA tenderness no spinous process tenderness from cervical spine thoracic and lumbar spine Skin: Intact no petechiae rash induration ulceration or crepitus Extremities: Moving all extremity against resistance cap refill less than 2 seconds neurosensory intact Neuro: Awake alert oriented x3 Glascow coma 15 no focal deficits] Course Quality Measures none Orders Category Date Time Status Glucose [Bedside Blood Glucose] NOW Care 09/15/24 20:36 Completed Saline [Insert IV] NOW Care 09/15/24 20:36 Completed CBC Stat Lab 09/15/24 20:35 Completed CMP [Comprehensive Metabolic Panel] Stat Lab 09/15/24 20:35 Completed Urinalysis Stat Lab 09/15/24 22:32 Completed Urine Culture Stat Lab 09/16/24 00:00 Received Insulin Regular Med 09/15/24 22:16 Discontinued 5 unit SC X1 ONE Insulin Regular Med 09/15/24 22:19 Discontinued 5 unit SC X1 ONE Insulin Regular Med 09/15/24 22:42 Discontinued 5 unit SC X1 ONE Sodium Chloride 0.9% 1000 ml [Ns] 1,000 ml Med 09/15/24 20:38 Discontinued IV 999 mls/hr Vital Signs Vital signs: Vital Signs Temperature 98.4 F 09/15/24 20:34 Pulse Rate 73 09/15/24 20:34 Respiratory Rate 19 09/15/24 20:34 Blood Pressure 206/61 H 09/15/24 20:34 Pulse Oximetry (%) 98 09/15/24 20:34 Oxygen Delivery Method Room Air 09/15/24 20:34 [facility] Patient data External records reviewed:: [facility] previous records and EMS form Clinical information provided by:: patient and EMS Social determinants that could affect healthcare access:: none Patient has the following chronic illnesses:: Diabetes hypertension hyperlipidemia anxiety hypothyroidism How is presenting disease/condition affected by chronic disease/condition?: exacerbated by Evaluation data The following diagnostics were reviewed and interpreted by me:: lab results Lab and/or radiology exams considered but not ordered:: See MDM Interpretation Summary: Elevated blood glucose level Medications Medications considered but not ordered:: None Medication administrations:: Medication Administration History Discontinued Medications Sodium Chloride (Ns) 1,000 mls @ 999 mls/hr IV .Q1H1M ONE Stop: 09/15/24 21:38 Last Infusion: 09/15/24 21:50 Dose: Infused Documented By: Admin: 09/15/24 20:41 Dose: 999 mls/hr Documented By: HEBER Insulin Human Regular (Insulin Hum Regular 1 Unit/0.01 Ml (Per Unit)) 5 unit SC X1 ONE Stop: 09/15/24 22:17 Last Admin: 09/15/24 22:24 Dose: Not Given Documented By: BUCK Non-Admin Reason: Duplicate Medication on eMAR Insulin Human Regular (Insulin Hum Regular 1 Unit/0.01 Ml (Per Unit)) 5 unit SC X1 ONE Stop: 09/15/24 22:20 Last Admin: 09/15/24 22:22 Dose: 5 unit Documented By: BUCK Co-signed By: HEBER Insulin Human Regular (Insulin Hum Regular 1 Unit/0.01 Ml (Per Unit)) 5 unit SC X1 ONE Stop: 09/15/24 22:43 Last Admin: 09/15/24 23:34 Dose: 5 unit Documented By: HEBER Co-signed By: FRANTZ None Consultations Consultation(s) initiated? (list below): No Diagnosis Differential Diagnosis ED Complaint MDM: Hyperglycemia DKA electrolyte imbalance Most likely diagnosis given after review of the tests above:: Hyperglycemia Admission Indicated Admission indicated?: not indicated Explain why admission is indicated or not indicated:: Stable for discharge Admission Request Was there a request for admission?: No Disposition Plan Disposition Plan: Discharge Discharge Attestation Discharge Attestation: The patient and all family members were given an opportunity to ask questions and understood the discharge instructions. Discharge instructions specifically effects, indications for sooner follow up or return to the emergency department, and the expected course of current diagnosis. Patient condition: Stable Medical Decision Making Differential Diagnosis Differential Diagnosis: Hyperglycemia DKA electrolyte imbalance Lab Data 09/15/24 20:35 09/15/24 20:35 Labs: Lab Results 09/15/24 09/15/24 Range/Units 20:35 22:32 WBC 10.6 (3.6-11.0) Thou/mm3 RBC 3.99 L (4.00-5.20) Miln/mm3 Hgb 11.9 L (12.0-16.0) g/dL Hct 36.0 (36.0-46.0) % MCV 90 (80-100) fL MCH 29.8 (25.0-35.0) pg MCHC 33.1 (31.0-37.0) g/dl RDW Std Deviation 44.1 (36.4-46.3) fL Plt Count 206 (140-440) Thou/mm3 Neut % (Auto) 75 (37-80) % Lymph % (Auto) 15 (10-50) % Ocean % (Auto) 8 (0-12) % Eos % (Auto) 2 (0-10) % Baso % (Auto) 0 (0-2.5) % Neut # (Auto) 8.0 H (1.8-7.7) Thou/mm3 Lymph # (Auto) 1.6 (1.0-4.8) Thou/mm3 Ocean # (Auto) 0.8 (0.0-0.8) Thou/mm3 Eos # (Auto) 0.2 (0.0-0.5) Thou/mm3 Baso # (Auto) 0.0 (0.0-0.2) Thou/mm3 Immature Gran # (Auto) 0.05 H (0.00-0.00) Thou/mm3 Absolute Nucleated RBC 0.00 (0.00-0.00) Thou/mm3 Immature Gran % 1 H (0-0) % Nucleated RBC % 0 (0) /100 WBC Sodium 135 L (136-145) mMol/L Potassium 4.4 (3.4-5.1) mMol/L Chloride 102 (98-107) mMol/L Carbon Dioxide 25.5 (20.0-31.0) mMol/L Anion Gap 8 (7-16) BUN 17 (9-23) mg/dL Creatinine 1.3 (0.6-1.3) mg/dL Estim Creat Clear Calc 38.5 L (>60) mL/min eGFR 42 L (60 - ) See Note BUN/Creatinine Ratio 13 (12-20) Ratio Glucose 395 H (74-106) mg/dL Calculated Osmolality 287 (275-295) Calcium 9.6 (8.3-10.6) mg/dL Corrected Calcium 9.6 (8.5-10.1) mg/dL Total Bilirubin 0.6 (0.3-1.2) mg/dL AST 10 (0-34) U/L ALT 7 L (10-49) U/L Alkaline Phosphatase 88 (46-116) U/L Total Protein 7.1 (5.7-8.2) gm/dL Albumin 4.0 (3.4-4.8) gm/dL Globulin 3.1 (2.3-3.5) gm/dL Albumin/Globulin Ratio 1.3 (1.2-2.2) Ur Collection Type Clean Catch Urine Color Yellow (Lt Yel-Yel) Urine Clarity Turbid A (Clear/Hazy) Urine pH 6.5 (5.0-7.0) Ur Specific Gregory 1.023 (1.001-1.035) Urine Protein 2+ A (Neg - Trace) Urine Glucose (UA) 4+ A (Negative) Urine Ketones Negative (Negative) Urine Blood 2+ A (Negative) Urine Nitrite Negative (Negative) Urine Bilirubin Negative (Negative) Urine Urobilinogen (Auto) Negative (0.0-1.0) mg/dL Ur Leukocyte Esterase Positive (Negative) Urine RBC 31 H (0-3) /hpf Urine WBC 920 H (0-5) /hpf Ur Squamous Epith Cells 31 H (0-5) /hpf Urine Bacteria None (None) Discharge Plan Plan Patient Disposition: HOME (Self Care) Prescriptions/Referrals Prescriptions/Med Rec: No Action Eliquis 2.5 mg tablet 2.5 mg PO BID Hold Instructions: Resume on 05/03/24. HOLD until follow up with PCP , not required pioglitazone [Actos] 15 mg tablet 15 mg PO QDAY Hold Instructions: Resume on 05/03/24. HOLD until follow up with PCP metoclopramide HCl 10 mg Tablet 10 mg PO BID amiodarone 200 mg tablet 200 mg PO QDAY Patient Comments: TAKE 1 TABLET BY MOUTH EVERY DAY amlodipine 5 mg tablet 5 mg PO QDAY Patient Comments: TAKE 1 TABLET BY MOUTH EVERY DAY bupropion HCl 200 mg tablet sustained-release 12 hr 200 mg PO BID Patient Comments: TAKE 1 TABLET BY MOUTH TWICE A DAY escitalopram oxalate 20 mg tablet 20 mg PO QDAY Patient Comments: TAKE 1 TABLET BY MOUTH EVERY DAY levothyroxine 75 mcg Tablet 75 mcg PO QDAY atorvastatin 10 mg Tablet 10 mg PO QDAY insulin glargine [Lantus Solostar U-100 Insulin] 100 unit/mL (3 mL) Insulin Pen 30 unit SUBCUT QAM Hold Instructions: Resume on 05/03/24. HOLD until follow up with PCP trazodone 150 mg tablet 150 mg PO HS Hold Instructions: f/u with pcp Patient Comments: TAKE 1 TABLET BY MOUTH AT BEDTIME naloxone [Narcan] 4 mg/actuation spray,non-aerosol 4 mg intranasal Q3M PRN (Reason: opioid overdose) Qty: 2 2RF Rx Instructions: spray 1 dose into ONE nostril; alternate nostrils w each dose until help arrives cephalexin 500 mg capsule 500 mg PO BID Qty: 10 0RF amlodipine 10 mg tablet 10 mg PO QDAY Qty: 30 0RF cephalexin 500 mg capsule 500 mg PO QID Qty: 28 0RF Problem List Clinical Impression: Hyperglycemia Patient/Caregiver Discharge Instructions Education Materials: ED Diabetes with High Blood Sugar Additional Instructions: Follow-up with your primary care doctor in 2 to 3 days for recheck. You can return to the emergency department sooner if symptoms worsen or if you notice any new, concerning issues. Print Language: Surinamese Stand Alone Forms: [facility] Award Info., Patient Portal Info Letter
[2024-09-15] MEDS: SODIUM CHLORIDE 0.9% 1000 ML 1,000 ML 999 ML IV (20:41)
[2024-09-15 20:45] LABS: Basophils % (Auto) 0 % (0-2.5); Eosinophils # (Auto) 0.2 Thou/mm3 (0.0-0.5); Eosinophils % (Auto) 2 % (0-10); Hemoglobin 11.9 g/dL (12.0-16.0); Immature Granulocytes % (Auto) 1 % (0-0); Immature Granulocytes Auto 0.05 Thou/mm3 (0.00-0.00); Lymphocytes # (Auto) 1.6 Thou/mm3 (1.0-4.8); Lymphocytes % (Auto) 15 % (10-50); Mean Corpuscular HGB Conc 33.1 g/dl (31.0-37.0); Mean Corpuscular Hemoglobin 29.8 pg (25.0-35.0); Mean Corpuscular Volume 90 fL (80-100); Monocytes # (Auto) 0.8 Thou/mm3 (0.0-0.8); Monocytes % (Auto) 8 % (0-12); Neutrophils % (Auto) 75 % (37-80); Nucleated Red Blood Cell % 0 /100 WBC (0); Platelet Count 206 Thou/mm3 (140-440); RDW Standard Deviation 44.1 fL (36.4-46.3); Red Blood Count 3.99 Miln/mm3 (4.00-5.20); White Blood Count 10.6 Thou/mm3 (3.6-11.0)
[2024-09-15 21:06] LABS: Alanine Aminotransferase 7 U/L (10-49); Albumin/Globulin Ratio 1.3 (1.2-2.2); Alkaline Phosphatase 88 U/L (46-116); Anion Gap 8 (7-16); Aspartate Amino Transferase 10 U/L (0-34); BUN/Creatinine Ratio 13 Ratio (12-20); Bilirubin,Total 0.6 mg/dL (0.3-1.2); Blood Urea Nitrogen 17 mg/dL (9-23); Calcium 9.6 mg/dL (8.3-10.6); Calcium (Corrected) 9.6 mg/dL (8.5-10.1); Carbon Dioxide 25.5 mMol/L (20.0-31.0); Chloride 102 mMol/L (98-107); Creatinine (Component) 1.3 mg/dL (0.6-1.3); Estimated Creatinine Clearance 38.5 mL/min (>60); Globulin 3.1 gm/dL (2.3-3.5); Glucose 395 mg/dL (74-106); Osmolality,Calculated 287 (275-295); Potassium 4.4 mMol/L (3.4-5.1); Sodium 135 mMol/L (136-145); Total Protein 7.1 gm/dL (5.7-8.2); eGFR 42 See Note
[2024-09-15] MEDS: INSULIN HUM REGULAR 1 UNIT/0.01 ML (PER UNIT) 5 UNIT SC ×2 (22:22→23:34)
[2024-09-15 22:37] LABS: Collection Type, Urine Clean Catch
[2024-09-15 22:38] VITALS: BP 167/97; PULSE 75; RESP 20; TEMP 37.1; O2SAT 96
[2024-09-15 23:02] LABS: Bilirubin,Urine Negative (Negative); Blood,Urine 2+ (Negative); Color,Urine Yellow (Lt Yel-Yel); Glucose, Urine 4+ (Negative); Ketones,Urine Negative (Negative); Leukocyte Esterase,Urine Positive (Negative); Nitrite,Urine Negative (Negative); PH,Urine 6.5 (5.0-7.0); Protein,Urine 2+ (Neg - Trace); RBC,Urine 31 /hpf (0-3); Specific Gravity,Urine 1.023 (1.001-1.035); Squamous Epithelial Cell,Urine 31 /hpf (0-5); Urobilinogen,Urine Negative mg/dL (0.0-1.0); WBC,Urine 920 /hpf (0-5)
[2024-09-15 23:03] LABS: Clarity,Urine Turbid (Clear/Hazy)
[2024-09-16 02:45] VITALS: RESP 18
== END 2024-09-16 02:47 | disposition home or self-care (01) ==
LOC: SERX 23:20
PROVIDERS: Registered Nurse General Practice; Emergency Provider Emergency Medicine; PCP Family Medicine
DX: R73.9 Hyperglycemia, unspecified (principal)
CPT/HCPCS: 36415; 80053; 81001; 85025; 87077; 87086; 87186; 96372; 99284; J1815; J7030

== ENCOUNTER 2024-12-24 18:35 | Emergency (ER) | payer OTHER, SELFPAY ==
[2024-12-24 19:21] VITALS: BP 142/81; PULSE 69; RESP 18; TEMP 37; O2SAT 95
--- NOTE | 2024-12-24 19:29 | PD.EDFMALE ---
ED Female Urogenital RME/HPI General Chief complaint: General Adult/Misc Complain Stated complaint: PT STATES SHE HAS A UTI X 1 WK Time Seen by Provider: 12/24/24 19:27 Arrival date/time: 12/24/24 18:35 79F with history of DM, CHF, afib, hypothyroidism, and HTN presents to ED with several weeks of dysuria. Patient is here with caregiver. Patient has not been on ABX. Limitations: no limitations Related Data Home Medications ?Medication ?Instructions ?Recorded ?Confirmed metoclopramide HCl 10 mg tablet 10 mg PO BID 02/28/18 09/05/24 levothyroxine 75 mcg tablet 75 mcg PO QDAY 02/14/23 09/05/24 amiodarone 200 mg tablet 200 mg PO QDAY 04/10/23 09/05/24 amlodipine 5 mg tablet 5 mg PO QDAY 04/10/23 09/05/24 bupropion HCl 200 mg tablet,12 hr 200 mg PO BID 04/10/23 09/05/24 sustained-release escitalopram oxalate 20 mg tablet 20 mg PO QDAY 04/10/23 09/05/24 apixaban 2.5 mg tablet (Eliquis) 2.5 mg PO BID 11/06/23 09/05/24 pioglitazone 15 mg tablet (Actos) 15 mg PO QDAY 11/06/23 09/05/24 atorvastatin 10 mg tablet 10 mg PO QDAY 04/15/24 09/05/24 insulin glargine 100 unit/mL (3 30 unit subcut QAM 04/15/24 09/05/24 mL) subcutaneous pen (Lantus Solostar U-100 Insulin) trazodone 150 mg tablet 150 mg PO HS 04/15/24 09/05/24 Previous Rx's ?Medication ?Instructions ?Recorded naloxone 4 mg/actuation nasal 4 mg intranasal Q3M PRN opioid 04/21/24 spray (Narcan) overdose #2 ea amlodipine 10 mg tablet 10 mg PO QDAY #30 tabs 08/19/24 cephalexin 500 mg capsule 500 mg PO BID #10 caps 08/19/24 cephalexin 500 mg capsule 500 mg PO QID #28 caps 09/05/24 ciprofloxacin HCl 500 mg tablet 500 mg PO BID 7 days #14 tabs 12/24/24 (Cipro) Allergies Allergy/AdvReac Type Severity Reaction Status Date / Time Sulfa (Sulfonamide Allergy Severe ITCHY Verified 12/24/24 18:38 Antibiotics) tomato Allergy Severe Rash Verified 12/24/24 18:38 Review of Systems Review of Systems Systems Reviewed: All systems reviewed, normal except as documented Constitutional Constitutional: Reports system reviewed and no additional complaints, except as documented, Denies fever(s) and Denies headache(s) ENT Ears, Nose, Mouth, and Throat: Denies disequilibrium and Denies headache(s) Cardiovascular Cardiovascular: Reports system reviewed and no additional complaints, except as documented, Denies chest pain and Denies dyspnea Respiratory Respiratory: Reports system reviewed and no additional complaints, except as documented, Denies cough and Denies dyspnea Gastrointestinal Gastrointestinal: Reports system reviewed and no additional complaints, except as documented, Denies abdominal pain, Denies nausea and Denies vomiting Genitourinary Genitourinary: Reports as per HPI and Reports dysuria Neurologic Neurologic: Reports system reviewed and no additional complaints, except as documented, Denies confusion, Denies disequilibrium and Denies headache(s) Psychiatric Psychiatric: Denies confusion Past Medical History Past Medical History CARDIAC: Positive Cardiac Disorders, Atrial Fibrillation and Hypertension; Negative Congestive Heart Failure RESPIRATORY: Negative Chronic Obstructive Pulmonary Disease (COPD) or Asthma GASTROINTESTINAL: Positive Gastroesophageal Reflux Disease GENITOURINARY: Negative Renal Disease MUSCULOSKELETAL: Positive Degenerative Disk Disease ENDOCRINE: Positive Diabetes Mellitus Type 2 and Hypothyroidism; Negative Diabetes Mellitus Type 1 HEMATOLOGIC: Negative Sickle Cell Disease PSYCHO/SOCIAL: Positive Bipolar Disorder, Depression and Anxiety OTHER HISTORY: Positive Blood Transfusions Surgical History SURGICAL: Positive Abdominal Surgery and Hysterectomy Social History SMOKING STATUS: Former smoker SUBSTANCE USE: does not use OCCUPATION: Retired. Single. ED Exam General Limitations: Present no limitations General appearance: Present alert and in no apparent distress Head Head exam: Present atraumatic Eye Eye exam: Present normal appearance, PERRL and EOMI ENT ENT exam: Present normal exam, normal oropharynx and mucous membranes moist Neck Neck exam: Present normal inspection, full ROM and trachea midline Chest Chest inspection: Present normal inspection and symmetric chest wall rise Respiratory Respiratory exam: Present normal lung sounds bilaterally Cardiovascular Cardiovascular exam: Present regular rate, normal rhythm and normal heart sounds Abdominal Exam Abdominal exam: Present soft and normal bowel sounds Extremities Exam Extremities exam: Present normal inspection and full ROM Back Exam Back exam: Present normal inspection and full ROM Neurological Exam Neurological exam: Present alert, oriented X3 and CN II-XII intact Psychiatric Psychiatric exam: Present normal affect and normal mood Skin Skin exam: Present warm, dry, intact and normal color Course Quality Measures none Orders Category Date Time Status In and Out Catheter X1 Care 12/24/24 19:27 Active Urinalysis, C/S if Indicated Stat Lab 12/24/24 20:23 Completed Ciprofloxacin HCl [Ciprofloxacin] Med 12/24/24 21:50 Discontinued 500 mg PO X1 ONE Vital Signs Vital signs: Vital Signs Temperature 98.6 F 12/24/24 19:21 Pulse Rate 69 12/24/24 19:21 Respiratory Rate 18 12/24/24 19:21 Blood Pressure 142/81 H 12/24/24 19:21 Pulse Oximetry (%) 95 12/24/24 19:21 Oxygen Delivery Method Room Air 12/24/24 19:21 O2 at 95% on RA and WNLs Urogenital - Female MDM Narrative MDM Narrative:: 79F with history of DM, CHF, afib, hypothyroidism, and HTN presents to ED with several weeks of dysuria. Patient is here with caregiver. Patient has not been on ABX. Physical exam reveals well-appearing female sitting in wheelchair, though she appears uncomfortable. Patient is afebrile, calm, and alert. Previous urine culture from 3 months ago showed enterobacter resistant to most PO ABX except FQs and Bactrim. Patient is allergic to Bactrim. UA suggests UTI, will give Cipro given previous UC. Patient confirms no ABX since that visit back in September. Patient data External records reviewed:: [facility] previous records Clinical information provided by:: patient Social determinants that could affect healthcare access:: none Patient has the following chronic illnesses:: DM, CHF, afib, hypothyroidism, and HTN How is presenting disease/condition affected by chronic disease/condition?: exacerbated by Evaluation data The following diagnostics were reviewed and interpreted by me:: lab results Lab and/or radiology exams considered but not ordered:: ordered Interpretation Summary: above Medications / Prescriptions Medications or Prescriptions considered but not ordered:: ordered Medication administrations:: Medication Administration History Discontinued Medications Ciprofloxacin (Ciprofloxacin Hcl 250 Mg Tablet) 500 mg PO X1 ONE Stop: 12/24/24 21:51 Last Admin: 12/24/24 21:59 Dose: 500 mg Documented By: OA above Consultations Consultation(s) initiated? (list below): No Diagnosis Urogenital Female Differential Diagnosis: urinary tract infection, bacterial vaginosis, trichomoniasis, cervicitis, ovarian cyst, vaginitis, ruptured ovarian cyst, cyst of Bartholin's gland, cystitis and dysmenorrhea Most likely diagnosis given after review of the tests above:: UTI Admission Indicated Admission indicated?: not indicated Admission Request Was there a request for admission?: No Disposition Plan Disposition Plan: Discharge Discharge Attestation Discharge Attestation: The patient and all family members were given an opportunity to ask questions and understood the discharge instructions. Discharge instructions specifically effects, indications for sooner follow up or return to the emergency department, and the expected course of current diagnosis. Patient condition: Stable Discharge Plan Plan Patient Disposition: HOME (Self Care) Disposition Comment: Stable Prescriptions/Referrals Prescriptions/Med Rec: New ciprofloxacin HCl [Cipro] 500 mg tablet 500 mg PO BID 7 Days Qty: 14 0RF No Action Eliquis 2.5 mg tablet 2.5 mg PO BID pioglitazone [Actos] 15 mg tablet 15 mg PO QDAY metoclopramide HCl 10 mg Tablet 10 mg PO BID amiodarone 200 mg tablet 200 mg PO QDAY Patient Comments: TAKE 1 TABLET BY MOUTH EVERY DAY amlodipine 5 mg tablet 5 mg PO QDAY Patient Comments: TAKE 1 TABLET BY MOUTH EVERY DAY bupropion HCl 200 mg tablet sustained-release 12 hr 200 mg PO BID Patient Comments: TAKE 1 TABLET BY MOUTH TWICE A DAY escitalopram oxalate 20 mg tablet 20 mg PO QDAY Patient Comments: TAKE 1 TABLET BY MOUTH EVERY DAY levothyroxine 75 mcg Tablet 75 mcg PO QDAY atorvastatin 10 mg Tablet 10 mg PO QDAY insulin glargine [Lantus Solostar U-100 Insulin] 100 unit/mL (3 mL) Insulin Pen 30 unit SUBCUT QAM trazodone 150 mg tablet 150 mg PO HS Patient Comments: TAKE 1 TABLET BY MOUTH AT BEDTIME naloxone [Narcan] 4 mg/actuation spray,non-aerosol 4 mg intranasal Q3M PRN (Reason: opioid overdose) Qty: 2 2RF Rx Instructions: spray 1 dose into ONE nostril; alternate nostrils w each dose until help arrives cephalexin 500 mg capsule 500 mg PO BID Qty: 10 0RF amlodipine 10 mg tablet 10 mg PO QDAY Qty: 30 0RF cephalexin 500 mg capsule 500 mg PO QID Qty: 28 0RF Referrals: Cristi Sandoval MD [Primary Care Provider] - In 1 week Problem List Clinical Impression: UTI (urinary tract infection) Patient/Caregiver Discharge Instructions Education Materials: ED CYSTITIS Female Adult Additional Instructions: Please follow-up with PCP within 24-48 hours and return immediately if symptoms worsen. Print Language: Nicaraguan Stand Alone Forms: Patient Portal Info Letter PA/PERSONAL ASSISTANT Supervising Physician PA/PERSONAL ASSISTANT Supervising Physician: Dr. Webster
[2024-12-24 20:55] LABS: Collection Type, Urine Clean Catch
[2024-12-24 21:28] LABS: Bilirubin,Urine Negative (Negative); Blood,Urine 3+ (Negative); Color,Urine Yellow (Lt Yel-Yel); Culture Indicated,Urine Contaminated; Glucose, Urine 1+ (Negative); Ketones,Urine Negative (Negative); Leukocyte Esterase,Urine Positive (Negative); Nitrite,Urine Negative (Negative); Protein,Urine 3+ (Neg - Trace); RBC,Urine 151 /hpf (0-3); Specific Gravity,Urine 1.025 (1.001-1.035); Squamous Epithelial Cell,Urine 17 /hpf (0-5); WBC,Urine 2656 /hpf (0-5)
[2024-12-24 21:29] LABS: Clarity,Urine Turbid (Clear/Hazy)
[2024-12-24] MEDS: CIPROFLOXACIN HCL 250 MG TABLET 500 MG PO (21:59)
== END 2024-12-25 00:33 | disposition home or self-care (01) ==
PROVIDERS: Physician Assistant; Emergency Provider Emergency Medicine; PCP Pediatrics
DX: N39.0 Urinary tract infection, site not specified (principal)
CPT/HCPCS: 81001; 99283; A9270

== ENCOUNTER 2025-01-26 00:40 | Emergency (ER) | payer OTHER, SELFPAY ==
[2025-01-26 00:55] VITALS: PULSE 101; RESP 16; O2SAT 99; BMI 56.5
[2025-01-26 01:26] VITALS: BP 186/65; PULSE 85; RESP 16; TEMP 37.2; O2SAT 99
--- NOTE | 2025-01-26 01:38 | PD.EDBACK ---
ED Back Injury Pain RME/HPI General Chief Complaint: Back Pain/Injury Stated Complaint: FLANK PAIN Time Seen by Provider: 01/26/25 01:38 Arrival date/time: 01/26/25 00:40 Mode of arrival: EMS RME / HPI RME / HPI Narrative: DR. TOLBERT?S MAIN ED EVALUATION: 80-year-old female with history of Degenerative Disc Disease, Atrial Fibrillation, GERD, and Type II DM presenting to the emergency department via EMS who is presenting for chief complaint of worsening sharp right flank pain and BL suprapubic abdominal pain x over 1 month. Patient reports taking Dilaudid for pain management, but ran out yesterday. Per EMS, patient was GCS 15 at arrival and complained of her bladder being full and difficulty urinating. Patient denies any other associated symptoms or medical complaints. - PMH:?Atrial Fibrillation, Hypertension, Gastroesophageal Reflux Disease, Degenerative Disk Disease, Diabetes Mellitus Type 2 and Hypothyroidism, Bipolar Disorder, Depression and Anxiety - PSH: Hysterectomy - Social history: Former smoker - Current medications: Reviewed PCP is MD MOSES Sandoval Complaint: back pain Onset (ago): month(s) (over 1 month) Duration: constant Similar Symptoms Previously: Yes Location: right flank Severity: severe Quality: sharp Severity scale (1-10): 9 Related Data Home Medications ?Medication ?Instructions ?Recorded ?Confirmed metoclopramide HCl 10 mg tablet 10 mg PO BID 02/28/18 09/05/24 levothyroxine 75 mcg tablet 75 mcg PO QDAY 02/14/23 09/05/24 amiodarone 200 mg tablet 200 mg PO QDAY 04/10/23 09/05/24 amlodipine 5 mg tablet 5 mg PO QDAY 04/10/23 09/05/24 bupropion HCl 200 mg tablet,12 hr 200 mg PO BID 04/10/23 09/05/24 sustained-release escitalopram oxalate 20 mg tablet 20 mg PO QDAY 04/10/23 09/05/24 apixaban 2.5 mg tablet (Eliquis) 2.5 mg PO BID 11/06/23 09/05/24 pioglitazone 15 mg tablet (Actos) 15 mg PO QDAY 11/06/23 09/05/24 atorvastatin 10 mg tablet 10 mg PO QDAY 04/15/24 09/05/24 insulin glargine 100 unit/mL (3 30 unit subcut QAM 04/15/24 09/05/24 mL) subcutaneous pen (Lantus Solostar U-100 Insulin) trazodone 150 mg tablet 150 mg PO HS 04/15/24 09/05/24 Previous Rx's ?Medication ?Instructions ?Recorded naloxone 4 mg/actuation nasal 4 mg intranasal Q3M PRN opioid 04/21/24 spray (Narcan) overdose #2 ea amlodipine 10 mg tablet 10 mg PO QDAY #30 tabs 08/19/24 cephalexin 500 mg capsule 500 mg PO BID #10 caps 08/19/24 cephalexin 500 mg capsule 500 mg PO QID #28 caps 09/05/24 Allergies Allergy/AdvReac Type Severity Reaction Status Date / Time Sulfa (Sulfonamide Allergy Severe ITCHY Verified 01/26/25 00:54 Antibiotics) tomato Allergy Severe Rash Verified 01/26/25 00:54 Review of Systems Review of Systems Systems Reviewed: All systems reviewed, normal except as documented Gastrointestinal Gastrointestinal: Reports other (BL suprapubic abdominal pain) Genitourinary Genitourinary: Reports urinary frequency and Reports other (bladder fullness) Musculoskeletal Musculoskeletal: Reports back pain (sharp right flank) Past Medical History Past Medical History CARDIAC: Positive Cardiac Disorders, Atrial Fibrillation and Hypertension GASTROINTESTINAL: Positive Gastroesophageal Reflux Disease MUSCULOSKELETAL: Positive Degenerative Disk Disease ENDOCRINE: Positive Diabetes Mellitus Type 2 and Hypothyroidism PSYCHO/SOCIAL: Positive Bipolar Disorder, Depression and Anxiety OTHER HISTORY: Positive Blood Transfusions Surgical History SURGICAL: Positive Abdominal Surgery and Hysterectomy Social History SMOKING STATUS: Former smoker ED Exam General General appearance: Present alert and in no apparent distress Eye Eye exam: Absent scleral icterus ENT ENT exam: Present normal oropharynx Neck Neck exam: Absent meningismus Chest Chest inspection: Present normal inspection Respiratory Respiratory exam: Absent respiratory distress, wheezes or stridor Cardiovascular Cardiovascular exam: Present bradycardia Abdominal Exam Abdominal exam: Present soft; Absent distention or rebound Extremities Exam Extremities exam: Present normal capillary refill; Absent normal inspection or pedal edema Back Exam Back exam: Present straight leg raise (R) and straight leg raise (L); Absent normal inspection, full ROM or vertebral tenderness Course Quality Measures none Orders Category Date Time Status CT Screening NOW Care 01/26/25 05:[address] abdomen pelvis w con Stat Exams 01/26/25 05:52 Ordered CXRP [XR chest 1V portable] Stat Exams 01/26/25 01:49 Taken CBC Stat Lab 01/26/25 01:39 Completed CMP [Comprehensive Metabolic Panel] Stat Lab 01/26/25 01:39 Completed Magnesium Stat Lab 01/26/25 01:39 Completed Troponin I Stat Lab 01/26/25 01:39 Completed UA [Urinalysis] Stat Lab 01/26/25 04:45 Completed Vital Signs Vital signs: Vital Signs Temperature 98.9 F 01/26/25 01:26 Pulse Rate 85 01/26/25 01:26 Respiratory Rate 16 01/26/25 01:26 Blood Pressure 186/65 H 01/26/25 01:26 Pulse Oximetry (%) 99 01/26/25 01:26 Oxygen Delivery Method Room Air 01/26/25 01:26 Back Pain / Injury MDM Narrative MDM Narrative:: Scribe Attestation: 01/26/2025 - Shruti Montague am scribing for and in the presence of Dr. Tolbert. Provider Notation: Although this document has been carefully reviewed, there may still be some phonetic and other typographical errors.? These errors are purely grammatical due to imperfections in the software program and should not be construed in any way to compromise the substance of the patient's medical care during this visit. 80-year-old female with history of Degenerative Disc Disease, Atrial Fibrillation, GERD, and Type II DM presenting to the emergency department via EMS who is presenting for chief complaint of worsening sharp right flank pain and BL suprapubic abdominal pain x over 1 month. ROS: sharp right flank pain, BL suprapubic abdominal pain, bladder fullness, difficulty urinating. Differential diagnoses include lumbar radiculopathy, strain of lumbar region, renal colic and pyelonephritis. 0600: Patient signed out to Dr. Mccrary. Pending CT and final disposition. UTI Patient data External records reviewed:: [facility] previous records (Reviewed prior ED records from 12/24/24. Patient was seen for UTI (urinary tract infection).) and EMS form Clinical information provided by:: patient and EMS Social determinants that could affect healthcare access:: none Patient has the following chronic illnesses:: Atrial Fibrillation, Hypertension, Gastroesophageal Reflux Disease, Degenerative Disk Disease, Diabetes Mellitus Type 2 and Hypothyroidism, Bipolar Disorder, Depression and Anxiety How is presenting disease/condition affected by chronic disease/condition?: exacerbated by Evaluation data The following diagnostics were reviewed and interpreted by me:: lab results and radiology exam(s) Lab and/or radiology exams considered but not ordered:: None Interpretation Summary: RADIOLOGY Chest X-Ray: Pending official radiology report. LABS RBC 3.78, Hgb 11.1, Hct 33.2%Plt Count 138, Immature Gran # 0.02. Sodium 134, estimated Creatinine Clear Calc 54, eGFR 42, Glucose 288, ALT < 7. Medications / Prescriptions Medications or Prescriptions considered but not ordered:: None Medication administrations:: See above if any Consultations Consultation(s) initiated? (list below): No Diagnosis Differential diagnosis back pain/injury: lumbar radiculopathy, strain of lumbar region, renal colic and pyelonephritis Most likely diagnosis given after review of the tests above:: Back pain Admission Indicated Admission indicated?: not indicated Explain why admission is indicated or not indicated:: Pending CT and final disposition from oncoming ED physician, Dr. Mccrary. Admission Request Was there a request for admission?: No Disposition Plan Disposition Plan: other (specify) (Patient will be signed out to Dr. Mccrary at [address] Discharge Plan Prescriptions/Referrals Prescriptions/Med Rec: No Action Eliquis 2.5 mg tablet 2.5 mg PO BID pioglitazone [Actos] 15 mg tablet 15 mg PO QDAY metoclopramide HCl 10 mg Tablet 10 mg PO BID amiodarone 200 mg tablet 200 mg PO QDAY Patient Comments: TAKE 1 TABLET BY MOUTH EVERY DAY amlodipine 5 mg tablet 5 mg PO QDAY Patient Comments: TAKE 1 TABLET BY MOUTH EVERY DAY bupropion HCl 200 mg tablet sustained-release 12 hr 200 mg PO BID Patient Comments: TAKE 1 TABLET BY MOUTH TWICE A DAY escitalopram oxalate 20 mg tablet 20 mg PO QDAY Patient Comments: TAKE 1 TABLET BY MOUTH EVERY DAY levothyroxine 75 mcg Tablet 75 mcg PO QDAY atorvastatin 10 mg Tablet 10 mg PO QDAY insulin glargine [Lantus Solostar U-100 Insulin] 100 unit/mL (3 mL) Insulin Pen 30 unit SUBCUT QAM trazodone 150 mg tablet 150 mg PO HS Patient Comments: TAKE 1 TABLET BY MOUTH AT BEDTIME naloxone [Narcan] 4 mg/actuation spray,non-aerosol 4 mg intranasal Q3M PRN (Reason: opioid overdose) Qty: 2 2RF Rx Instructions: spray 1 dose into ONE nostril; alternate nostrils w each dose until help arrives cephalexin 500 mg capsule 500 mg PO BID Qty: 10 0RF amlodipine 10 mg tablet 10 mg PO QDAY Qty: 30 0RF cephalexin 500 mg capsule 500 mg PO QID Qty: 28 0RF Referrals: Cullen Ayers MD [Physician] - In 1 week Problem List Clinical Impression: Back pain Patient/Caregiver Discharge Instructions Additional Instructions: DISCHARGE INSTRUCTIONS - ADULTS Even though you have been discharged from the Emergency Department, there are several things that you should do to ensure that you receive proper care: 1. DO READ your discharge instructions as these contain important information concerning your medical care. 2. If medication has been prescribed for your condition, fill the prescription as soon as possible and follow the directions on the medication. 3. RETURN AT ONCE TO THE EMERGENCY DEPARTMENT if you have any problems or concerns. These include but are not limited to fever, worsening pain(belly, chest, head, etc?), worsening shortness of breath, uncontrollable bleeding, inability to tolerate food and water, or any condition that makes you question your well-being. Also, if your symptoms do not improve in the next 12-24 hours, return to the ER or seek medical care immediately. 4. Be sure to follow up with your regular physician or specialist as instructed at discharge as this is the best way to ensure that you receive the very best of care. If you do not have a primary care physician, please contact a physician group and make an appointment. 5. Please visit [employer] for coupons regarding your prescriptions. It is a free service for you to use and can help reduce the cost of your medication. We would like to thank you for coming today and our hope is that we served you and your family well during your stay. Print Language: Sinhala
--- NOTE | 2025-01-26 01:49 | XR_ITS ---
Examination: AP chest single view Technique one AP portable semiupright chest single view Date and time: January 26, 2025 0259 hours INDICATIONS: Right-sided chest pain today. FINDINGS: Mild enlargement in cardiac contour. Moderate vascular congestion. Interstitial disease throughout the lungs especially lung bases consistent with pulmonary fibrosis Consider superimposed pneumonia both bases Cardiac leads stable position IMPRESSION: Significant bilateral pulmonary fibrosis Suspicious for superimposed pneumonia both bases
[2025-01-26 01:52] LABS: Basophils % (Auto) 0 % (0-2.5); Eosinophils # (Auto) 0.2 Thou/mm3 (0.0-0.5); Eosinophils % (Auto) 2 % (0-10); Hematocrit 33.2 % (36.0-46.0); Hemoglobin 11.1 g/dL (12.0-16.0); Immature Granulocytes % (Auto) 0 % (0-0); Immature Granulocytes Auto 0.02 Thou/mm3 (0.00-0.00); Lymphocytes # (Auto) 1.6 Thou/mm3 (1.0-4.8); Lymphocytes % (Auto) 25 % (10-50); Mean Corpuscular HGB Conc 33.4 g/dl (31.0-37.0); Mean Corpuscular Hemoglobin 29.4 pg (25.0-35.0); Mean Corpuscular Volume 88 fL (80-100); Monocytes # (Auto) 0.6 Thou/mm3 (0.0-0.8); Monocytes % (Auto) 9 % (0-12); Neutrophils % (Auto) 63 % (37-80); Nucleated Red Blood Cell % 0 /100 WBC (0); Platelet Count 138 Thou/mm3 (140-440); RDW Standard Deviation 45.9 fL (36.4-46.3); Red Blood Count 3.78 Miln/mm3 (4.00-5.20); White Blood Count 6.4 Thou/mm3 (3.6-11.0)
[2025-01-26 02:12] LABS: Alanine Aminotransferase < 7 U/L (10-49); Albumin, Serum 3.8 gm/dL (3.4-4.8); Albumin/Globulin Ratio 1.4 (1.2-2.2); Alkaline Phosphatase 64 U/L (46-116); Anion Gap 9 (7-16); Aspartate Amino Transferase < 10 U/L (0-34); BUN/Creatinine Ratio 13 Ratio (12-20); Bilirubin,Total 0.5 mg/dL (0.3-1.2); Blood Urea Nitrogen 17 mg/dL (9-23); Calcium 8.9 mg/dL (8.3-10.6); Calcium (Corrected) 9.1 mg/dL (8.5-10.1); Carbon Dioxide 24.8 mMol/L (20.0-31.0); Chloride 100 mMol/L (98-107); Creatinine (Component) 1.3 mg/dL (0.6-1.3); Globulin 2.8 gm/dL (2.3-3.5); Glucose 288 mg/dL (74-106); Magnesium 1.6 mg/dL (1.6-2.6); Osmolality,Calculated 280 (275-295); Potassium 4.1 mMol/L (3.4-5.1); Sodium 134 mMol/L (136-145); Total Protein 6.6 gm/dL (5.7-8.2); Troponin I < 0.020 ng/mL (0.0-0.045); eGFR 42 See Note
[2025-01-26 03:00] VITALS: BP 180/95; PULSE 90; RESP 14; TEMP 37.2; O2SAT 99
[2025-01-26 05:00] VITALS: BP 185/90; PULSE 92; RESP 14; TEMP 37.2; O2SAT 99
--- NOTE | 2025-01-26 05:12 | PC.NURSE ---
Informed provider Veronika patient 04/13 pain. no verbal orders received.
[2025-01-26 05:18] LABS: Collection Type, Urine Catheter; Squamous Epithelial Cell,Urine 0 /hpf (0-5)
[2025-01-26 05:24] LABS: Bacteria,Urine Rare; Bilirubin,Urine Negative (Negative); Blood,Urine Trace (Negative); Clarity,Urine Clear (Clear/Hazy); Color,Urine Colorless (Lt Yel-Yel); Glucose, Urine 2+ (Negative); Ketones,Urine Negative (Negative); Leukocyte Esterase,Urine Positive (Negative); Nitrite,Urine Negative (Negative); PH,Urine 6.5 (5.0-7.0); Protein,Urine 1+ (Neg - Trace); RBC,Urine 1 /hpf (0-3); Specific Gravity,Urine 1.006 (1.001-1.035); Urobilinogen,Urine Negative mg/dL (0.0-1.0); WBC,Urine 38 /hpf (0-5)
--- NOTE | 2025-01-26 05:52 | XR_ITS ---
Examination: CT abdomen with intravenous contrast CT pelvis with intravenous contrast 2-D coronal reconstructions 2-D sagittal reconstructions Date and time of exam:January 26, 2025 0654 hours INDICATIONS: Abdominal pain today. CTDI: vol (mGy) 24.7 DLP: (mGycm) 606 Technique: Multiple axial sections of the abdomen and pelvis have been obtained. 64 slice high-resolution scanner used. 3 mm axial sections have been obtained, post intravenous injection 60 cc Isovue 370 2-D sagittal, coronal reconstructions obtained. Low dose protocols were performed. One or more of the following dose reduction techniques were used; automated exposure control, adjustment of the mA and/or KV according to patient size, use of iterative reconstruction technique. Findings: Scarring at the lung bases No focal liver lesions Splenic calcifications Absent gallbladder 28 mm left adrenal nodule Bilateral renal cysts, including lower pole 8 cm cyst Solid-appearing lateral right renal mass lesion image 99 measuring 16 mm Aorta normal size right kidney No pericecal inflammatory changes No bowel obstruction Colonic diverticulosis Marked cystitis pattern with inflammatory change surrounding the bladder and wall thickening Fat-containing inguinal hernias Prominent osteopenia with chronic osteoporotic compression L1 and T11 IMPRESSION: 28 mm left adrenal nodule, differential would include adrenal metastasis, primary adrenal tumor Recommend renal sonography to assess solid appearing right lateral renal mass lesion 16 mm Severe cystitis pattern
[2025-01-26] MEDS: cefTRIAXone/D5w 1gm IV premix 1 GM/50 ML BAG IV (06:20)
--- NOTE | 2025-01-26 06:24 | PD.EDADDENDU ---
Emergency Room Addendum Addendum Narrative: 0600: Care assumed from Dr. Banda, the previous shift emergency physician. Past medical, surgical, social and family history reviewed. Vitals and home medications reviewed. I will assume the care of the patient at this time, pending abdomen/pelvis CT and final disposition. Please refer to the emergency department record for history and examination from initial visit.? Physical exam by me shows patient under no acute distress at this time. Patient will be discharged with UTI, right renal mass, left adrenal nodule, diabetes, and anemia. Will discharge her with macrobid and follow up/ further evaluation/ US of the right renal mass, left adrenal nodule and consider urology referral. 0755: Patient remains clinically stable throughout the emergency department visit. Re-assessment at the time of disposition demonstrates that the patient is in no acute distress. We reviewed all the results, analysis, and treatment plans. Patient is amenable to discharge. Strict return precautions were outlined. Patient was discharged in stable condition. Results Objective Laboratory: Laboratory Last Values WBC 6.4 Thou/mm3 (3.6-11.0) 01/26/25 01:39 RBC 3.78 Miln/mm3 (4.00-5.20) L 01/26/25 01:39 Hgb 11.1 g/dL (12.0-16.0) L 01/26/25 01:39 Hct 33.2 % (36.0-46.0) L 01/26/25 01:39 MCV 88 fL (80-100) 01/26/25 01:39 MCH 29.4 pg (25.0-35.0) 01/26/25 01:39 MCHC 33.4 g/dl (31.0-37.0) 01/26/25 01:39 RDW Std Deviation 45.9 fL (36.4-46.3) 01/26/25 01:39 Plt Count 138 Thou/mm3 (140-440) L 01/26/25 01:39 Neut % (Auto) 63 % (37-80) 01/26/25 01:39 Lymph % (Auto) 25 % (10-50) 01/26/25 01:39 [place] % (Auto) 9 % (0-12) 01/26/25 01:39 Eos % (Auto) 2 % (0-10) 01/26/25 01:39 Baso % (Auto) 0 % (0-2.5) 01/26/25 01:39 Neut # (Auto) 4.0 Thou/mm3 (1.8-7.7) 01/26/25 01:39 Lymph # (Auto) 1.6 Thou/mm3 (1.0-4.8) 01/26/25 01:39 [place] # (Auto) 0.6 Thou/mm3 (0.0-0.8) 01/26/25 01:39 Eos # (Auto) 0.2 Thou/mm3 (0.0-0.5) 01/26/25 01:39 Baso # (Auto) 0.0 Thou/mm3 (0.0-0.2) 01/26/25 01:39 Immature Gran # (Auto) 0.02 Thou/mm3 (0.00-0.00) H 01/26/25 01:39 Absolute Nucleated RBC 0.00 Thou/mm3 (0.00-0.00) 01/26/25 01:39 Immature Gran % 0 % (0-0) 01/26/25 01:39 Nucleated RBC % 0 /100 WBC (0) 01/26/25 01:39 Sodium 134 mMol/L (136-145) L 01/26/25 01:39 Potassium 4.1 mMol/L (3.4-5.1) 01/26/25 01:39 Chloride 100 mMol/L (98-107) 01/26/25 01:39 Carbon Dioxide 24.8 mMol/L (20.0-31.0) 01/26/25 01:39 Anion Gap 9 (7-16) 01/26/25 01:39 BUN 17 mg/dL (9-23) 01/26/25 01:39 Creatinine 1.3 mg/dL (0.6-1.3) 01/26/25 01:39 Estim Creat Clear Calc 54.0 mL/min (>60) L 01/26/25 01:39 eGFR 42 See Note (60-) L 01/26/25 01:39 BUN/Creatinine Ratio 13 Ratio (12-20) 01/26/25 01:39 Glucose 288 mg/dL (74-106) H 01/26/25 01:39 Calculated Osmolality 280 (275-295) 01/26/25 01:39 Calcium 8.9 mg/dL (8.3-10.6) 01/26/25 01:39 Corrected Calcium 9.1 mg/dL (8.5-10.1) 01/26/25 01:39 Magnesium 1.6 mg/dL (1.6-2.6) 01/26/25 01:39 Total Bilirubin 0.5 mg/dL (0.3-1.2) 01/26/25 01:39 AST < 10 U/L (0-34) 01/26/25 01:39 ALT < 7 U/L (10-49) L 01/26/25 01:39 Alkaline Phosphatase 64 U/L (46-116) 01/26/25 01:39 Troponin I < 0.020 ng/mL (0.0-0.045) 01/26/25 01:39 Total Protein 6.6 gm/dL (5.7-8.2) 01/26/25 01:39 Albumin 3.8 gm/dL (3.4-4.8) 01/26/25 01:39 Globulin 2.8 gm/dL (2.3-3.5) 01/26/25 01:39 Albumin/Globulin Ratio 1.4 (1.2-2.2) 01/26/25 01:39 Ur Collection Type Catheter 01/26/25 04:45 Urine Color Colorless (Lt Yel-Yel) A 01/26/25 04:45 Urine Clarity Clear (Clear/Hazy) 01/26/25 04:45 Urine pH 6.5 (5.0-7.0) 01/26/25 04:45 Ur Specific [place] 1.006 (1.001-1.035) 01/26/25 04:45 Urine Protein 1+ (Neg - Trace) A 01/26/25 04:45 Urine Glucose (UA) 2+ (Negative) A 01/26/25 04:45 Urine Ketones Negative (Negative) 01/26/25 04:45 Urine Blood Trace (Negative) 01/26/25 04:45 Urine Nitrite Negative (Negative) 01/26/25 04:45 Urine Bilirubin Negative (Negative) 01/26/25 04:45 Urine Urobilinogen (Auto) Negative mg/dL (0.0-1.0) 01/26/25 04:45 Ur Leukocyte Esterase Positive (Negative) 01/26/25 04:45 Urine RBC 1 /hpf (0-3) 01/26/25 04:45 Urine WBC 38 /hpf (0-5) H 01/26/25 04:45 Ur Squamous Epith Cells 0 /hpf (0-5) 01/26/25 04:45 Urine Bacteria Rare (None) 01/26/25 04:45 Imaging: Procedure(s): CT abdomen pelvis w con Accession Number(s): [id number] cc: Lang Sandoval MD; Addy Deleon MD; Heather Banda MD~ Examination: CT abdomen with intravenous contrast CT pelvis with intravenous contrast 2-D coronal reconstructions 2-D sagittal reconstructions Date and time of exam:January 26, 2025 0654 hours INDICATIONS: Abdominal pain today. CTDI: vol (mGy) 24.7 DLP: (mGycm) 606 Technique: Multiple axial sections of the abdomen and pelvis have been obtained. 64 slice high-resolution scanner used. 3 mm axial sections have been obtained, post intravenous injection 60 cc Isovue 370 2-D sagittal, coronal reconstructions obtained. Low dose protocols were performed. One or more of the following dose reduction techniques were used; automated exposure control, adjustment of the mA and/or KV according to patient size, use of iterative reconstruction technique. Findings: Scarring at the lung bases No focal liver lesions Splenic calcifications Absent gallbladder 28 mm left adrenal nodule Bilateral renal cysts, including lower pole 8 cm cyst Solid-appearing lateral right renal mass lesion image 99 measuring 16 mm Aorta normal size right kidney No pericecal inflammatory changes No bowel obstruction Colonic diverticulosis Marked cystitis pattern with inflammatory change surrounding the bladder and wall thickening Fat-containing inguinal hernias Prominent osteopenia with chronic osteoporotic compression L1 and T11 IMPRESSION: 28 mm left adrenal nodule, differential would include adrenal metastasis, primary adrenal tumor Recommend renal sonography to assess solid appearing right lateral renal mass lesion 16 mm Severe cystitis pattern Dictated By: Addy Deleon MD
[2025-01-26] MEDS: ACETAMINOPHEN IVPB 1,000 MG/100 ML VIAL 250 MG IV (07:28)
--- NOTE | 2025-01-26 07:31 | PC.NURSE ---
UPON ASSUMPTION OF CARE PT WAS AT CT. UPON RETURNING FROM CT, PT REPORTED 9/10 PAIN. PAIN MEDICATION INFUSING CURRENTLY. BP IS ELEVATED, ALL OTHER VSS. WILL CONT W/POC
[2025-01-26 07:44] VITALS: BP 167/53; PULSE 60; RESP 18; TEMP 37.3; O2SAT 97
--- NOTE | 2025-01-26 07:59 | PC.NURSE ---
SPOKE W/SW TO INFORM PT NEEDS A RIDE HOME SHE DOES NOT AMBULATE. PT STATES SHE NORMALLY NEEDS AN AMBULANCE TO TAKE HER HOME.
--- NOTE | 2025-01-26 08:19 | PC.CC ---
YOKASTA Elliott completed a face to face mental health assessment with the pt at bedside ER #[id number]. Pt who presented to the ED on 01/25/25 on a 5150 hold for danger to self/danger to others by [facility] ASW asked pt about her demographics and she stated she stays between homes. Reason for the hold is that pt was found at a park located in [place], wandering, responding to internal stimuli, and was argumentative to herself and yelling. LE was called out and placed pt on a 5150 Hold due to DTS/DTO. ASW introduced self, role, and reason for assessment. ASW disclosed limits of confidentiality as well. Patients spouse was in the room as the assessment began, and ASW asked permission to the pt if ASW could speak freely in front of her spouse and she said, Yes, well he's my , so ASW continued the assessment. Pt appeared alert and oriented to self, place, and situation. Patient appeared to have erratic behavior, emotional and argumentative. During the assessment, pt started an argument with the spouse, so ASW asked the pt spouse to step out. Patient?s thought process was not linear and it was unorganized. Pt presented as paranoid and delusional, pt denies AVH , but during the assessment, pt began to respond to internal stimuli. Pt denies ever being on a past 5150 or in a mental health hospital, but according to collateral, pt has been placed on a 5150 3xs and placed in a hospital 3xs. Pt admits to smoking methamphetaine 3-4 days ago and the toxicology report reflects the pt tested positive on 01/25/25. 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 It should be known that after this assessment, pt continues to respond to internal stimuli and yelling at herself. ASW staffed the case with DAMION SIM and it was decided to keep the hold and search for LPS placement. ASW will submit for LPS placement on [facility]. ASW spoke with projection camera operator and she is aware of the search for LPS placement. ASW spoke with ER provider and he is aware of the search for LPS placement.
--- NOTE | 2025-01-26 08:44 | PC.CC ---
Addendum entered by Duyen Elliott 01/26/25 10:02: Transfer RN Domonique signed the MARIALUISA and p/u ETA will be at 1200 or sooner. Original Note: RN spoke with ASW to arrange transportation for pt to return home. However due to pts insurance, medical transportation is not covered. Pt is non mobile and cannot walk, therefore, she needs gurney transportation. Pt has family home to receive her. [facility] ASW spoke with Transfer RN and agreed to sign the MARIALUISA. ASW will arrange transportation with [employer].
[2025-01-26 10:29] VITALS: BP 150/56; PULSE 60; RESP 14; TEMP 36.8; O2SAT 98
--- NOTE | 2025-01-26 10:49 | PC.NURSE ---
PT CHANGED, EMS HERE TO TRANSPORT PT HOME. CAREGIVER CLAUDIO NOTIFIED TRANSPORT WILL BE TAKING HER HOME NOW, AT PTS REQUEST. 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
== END 2025-01-26 10:52 | disposition home or self-care (01) ==
PROVIDERS: Emergency Provider Emergency Medicine; PCP Family Medicine
DX: M54.9 Dorsalgia, unspecified (principal); K21.9 Gastro-esophageal reflux disease without esophagitis; I48.91 Unspecified atrial fibrillation; E11.9 Type 2 diabetes mellitus without complications
CPT/HCPCS: 36415; 71045; 74177; 80053; 81001; 83735; 84484; 85025; 90839; 96365; 96367; 99285; A4649; J0131; J0696; Q9967

== ENCOUNTER 2025-05-09 22:05 | Inpatient (IN) | payer OTHER, MEDICARE, SELFPAY ==
[2025-05-09] VITALS (10 sets, daily range): BP systolic 48–88; BP diastolic 36–62; PULSE 73–105; RESP 12–39; TEMP 40.6; O2SAT 71–96; BMI 46.5
--- NOTE | 2025-05-09 22:16 | EKG_ITS ---
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: : 1945 Requested By: ED Temporary Provider Order Number: [id number] Reading MD: ED Temporary Provider Measurements Intervals [place] Rate: 85 P: -28 [place]: 194 QRS: 39 QRSD: 151 T: -12 QT: 414 QTc: 493 Interpretive Statements SINUS RHYTHM WITH FREQUENT SUPRAVENTRICULAR PREMATURE COMPLEXES INDETERMINATE AXIS RIGHT BUNDLE BRANCH BLOCK [120+ ms QRS DURATION, UPRIGHT V1, 40+ ms S IN I/aVL/V4/V5/V6] POSSIBLE ANTERIOR MYOCARDIAL INFARCTION , PROBABLY OLD [30 ms Q WAVE IN V3/V4, OR R < 0.2 mV IN V4] Compared to ECG 08/16/2024 17:49:16 Indeterminate axis now present Right bundle-branch block now present Myocardial infarct finding now present /store/S0/[id number].pdf
[2025-05-09] MEDS: ETOMIDATE INJ 2 MG/ML VIAL 10 ML 30 MG IVP (22:18)
[2025-05-09] MEDS: ROCURONIUM INJ 10 MG/ML VIAL 10 ML 100 MG IVP (22:19)
--- NOTE | 2025-05-09 22:21 | XR_ITS ---
Examination: AP chest single view Technique one AP portable semiupright chest single view Date and time: May 09, 2025 10:37 PM, comparison January 26, 2025 Indications: Hypoxic respiratory failure postintubation Findings: Endotracheal tube tip approximately 3.7 cm above jayson Extensive right lung pneumonia Mild enlargement cardiac contour, cardiac leads satisfactory position Recommend advancing the orogastric tube 3 cm Prominent osteopenia Impression: Interval extensive right lung pneumonia, consider aspiration pneumonia Tracheal tube tip 3.7 cm above jayson Advance the orogastric tube 3 cm
[2025-05-09] MEDS: Norepinephrine/D5W 8mg/250ml 8 MG/250 ML BAG 714.409 MG IV (22:31)
--- NOTE | 2025-05-09 22:40 | PD.EDSOB ---
ED SOB =RME/HPI General Chief Complaint: Shortness of Breath/Dyspnea Stated Complaint: RESPIRATORY DISTRESS Time Seen by Provider: 05/09/25 22:39 Arrival date/time: 05/09/25 22:05 RME / HPI RME / HPI Narrative: Dr. Arias?s Main ED Evaluation: 80yo female with a history of COPD, diastolic heart failure, aFib on Eliquis, HTN, pacemaker, DM BIBA from home presents to the ED as a STAT medical for a chief complaint of shortness of breath. Patient was intubated by me at 2221. 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 Patient is unable to provide any history due to her medical condition. Related Data Home Medications ?Medication ?Instructions ?Recorded ?Confirmed metoclopramide HCl 10 mg tablet 10 mg PO BID 02/28/18 09/05/24 levothyroxine 75 mcg tablet 75 mcg PO QDAY 02/14/23 09/05/24 amiodarone 200 mg tablet 200 mg PO QDAY 04/10/23 09/05/24 amlodipine 5 mg tablet 5 mg PO QDAY 04/10/23 09/05/24 bupropion HCl 200 mg tablet,12 hr 200 mg PO BID 04/10/23 09/05/24 sustained-release escitalopram oxalate 20 mg tablet 20 mg PO QDAY 04/10/23 09/05/24 apixaban 2.5 mg tablet (Eliquis) 2.5 mg PO BID 11/06/23 09/05/24 pioglitazone 15 mg tablet (Actos) 15 mg PO QDAY 11/06/23 09/05/24 atorvastatin 10 mg tablet 10 mg PO QDAY 04/15/24 09/05/24 insulin glargine 100 unit/mL (3 30 unit subcut QAM 04/15/24 09/05/24 mL) subcutaneous pen (Lantus Solostar U-100 Insulin) trazodone 150 mg tablet 150 mg PO HS 04/15/24 09/05/24 Previous Rx's ?Medication ?Instructions ?Recorded naloxone 4 mg/actuation nasal 4 mg intranasal Q3M PRN opioid 04/21/24 spray (Narcan) overdose #2 ea amlodipine 10 mg tablet 10 mg PO QDAY #30 tabs 08/19/24 cephalexin 500 mg capsule 500 mg PO BID #10 caps 08/19/24 cephalexin 500 mg capsule 500 mg PO QID #28 caps 09/05/24 Allergies Allergy/AdvReac Type Severity Reaction Status Date / Time Sulfa (Sulfonamide Allergy Severe ITCHY Verified 05/09/25 22:07 Antibiotics) tomato Allergy Severe Rash Verified 05/09/25 22:07 Review of Systems Review of Systems ROS Unobtainable: unobtainable due to medical condition Past Medical History Past Medical History CARDIAC: Positive Cardiac Disorders (afib, pacemaker, htn,), Atrial Fibrillation and Hypertension; Negative Congestive Heart Failure RESPIRATORY: Positive Asthma (copd); Negative Chronic Obstructive Pulmonary Disease (COPD) GASTROINTESTINAL: Positive Gastroesophageal Reflux Disease GENITOURINARY: Negative Renal Disease MUSCULOSKELETAL: Positive Degenerative Disk Disease ENDOCRINE: Positive Diabetes Mellitus Type 2 and Hypothyroidism; Negative Diabetes Mellitus Type 1 HEMATOLOGIC: Negative Sickle Cell Disease PSYCHO/SOCIAL: Positive Bipolar Disorder, Depression and Anxiety OTHER HISTORY: Positive Blood Transfusions Surgical History SURGICAL: Positive Abdominal Surgery and Hysterectomy Social History SMOKING STATUS: Never smoker SUBSTANCE USE: does not use OCCUPATION: Retired. Single. ED Exam Narrative Physical exam: Generally patient is comatose dyspneic with shallow respirations, lungs coarse breath sounds bilaterally with poor air exchange, heart regular rate and rhythm, extremities show no pitting edema capillary refill markedly delayed, skin is cool pale and diaphoretic, neurologic exam patient does not respond to painful stimuli. Incomprehensible sounds. No eye-opening. Course Course Course Narrative: CXR is ordered for determining the etiology of shortness of breath. 2254: Sepsis alert initiated. Orders made at this time are congruent with ED Adult Sepsis Order List. Re-evaluation is to be completed. 2348: NS IVF started. Sepsis re-evaluation is pending at the time of admission. Quality Measures none Orders Category Date Time Status Bedside COVID-19 Antigen Test NOW Care 05/09/25 22:20 Active Bedside COVID-19 Antigen Test NOW Care 05/09/25 22:44 Completed Bedside Influenza A&B Antigen Test NOW Care 05/09/25 22:21 Completed Bedside Influenza A&B Antigen Test NOW Care 05/09/25 22:44 Completed EKG (ED ONLY) *Do not use* NOW Care 05/09/25 22:16 Completed EKG (ED ONLY) *Do not use* NOW Care 05/09/25 22:44 Completed Emergency Titration Protocol Stat Care 05/09/25 22:30 Ordered Mena [Urinary Catheter] QS Care 05/09/25 22:21 Active IV [Insert IV] STAT Care 05/09/25 22:18 Active Insert NG / OG tube NOW Care 05/09/25 22:23 Active Intubation NOW Care 05/09/25 22:[address] head/brain wo con Stat Exams 05/09/25 23:47 Taken EKG (ED Only) Stat Exams 05/09/25 22:16 Draft EKG (ED Only) Stat Exams 05/09/25 22:44 Draft XR chest 1V post procedure Stat Exams 05/09/25 22:21 Completed Arterial Blood Gas Stat Lab 05/09/25 23:08 Completed BNP [B-Type Natriuretic Peptide] Stat Lab 05/09/25 23:02 Completed Blood Culture (Lab) Stat Lab 05/09/25 23:07 Received CBC Stat Lab 05/09/25 23:02 Completed CMP [Comprehensive Metabolic Panel] Stat Lab 05/09/25 23:02 Completed Drug Screen,Urine Stat Lab 05/09/25 23:41 Completed Lactic Acid [Lactate (Lactic Acid)] Stat Lab 05/09/25 23:02 Results PT [Prothrombin Time with INR] Stat Lab 05/09/25 23:02 Completed Procalcitonin Stat Lab 05/09/25 23:02 Completed Sputum Culture and Gram Stain Stat Lab 05/09/25 22:35 Results TSH [Thyroid Stimulating Hormone] Stat Lab 05/09/25 23:02 Completed Troponin I Stat Lab 05/09/25 23:02 Completed UA [Urinalysis] Stat Lab 05/09/25 23:41 Completed ALBUTEROL RT 0.5ml [Proventil Rt 0.5ml] Med 05/09/25 22:45 Discontinued 10 mg INH X1 ONE Acetaminophen Supp [Tylenol Supp] Med 05/09/25 22:58 Discontinued 650 mg [place] X1 ONE Azithromycin Inj [Zithromax Inj] 500 mg Med 05/09/25 22:45 Discontinued Sodium Chloride 0.9% 250 ml [Ns] 250 ml IV X1 DOBUTamine/D5w 500 MG IVPB [Dobutrex/D5w IVPB] Med 05/09/25 22:35 Discontinued 500 mg in 250 ml IV .STK-MED Etomidate Inj [Amidate Inj] Med 05/09/25 22:16 Discontinued 30 mg IVP X1 ONE Etomidate Inj [Amidate Inj] Med 05/09/25 22:14 Discontinued 40 mg .ROUTE .STK-MED ONE Ipratropium [place] Rt Suma [Atrovent Rt Suma] Med 05/09/25 22:45 Discontinued 1 mg INH X1 ONE Norepinephrine/D5W 8mg/250ml [Levophed in D5W 8mg/250ml Med 05/09/25 22:20 Discontinued ] 8 mg in 250 ml IV 0.05 mcg/kg/min Norepinephrine/D5W 8mg/250ml [Levophed in D5W 8mg/250ml Med 05/09/25 22:38 Active ] 8 mg in 250 ml IV 0.05 mcg/kg/min Rocuronium Inj [Zemuron Inj] Med 05/09/25 22:13 Discontinued 100 mg .ROUTE .STK-MED ONE Rocuronium Inj [Zemuron Inj] Med 05/09/25 22:16 Discontinued 100 mg IVP X1 ONE Sodium Chloride 0.9% 1000 ml [Ns] 1,000 ml Med 05/09/25 23:46 Discontinued IV 999 mls/hr Sodium Chloride 0.9% 1000 ml [Ns] 1,000 ml Med 05/09/25 23:46 Discontinued IV 999 mls/hr Sodium Chloride Rt Suma 0.9% [NS Rt Suma 0.9%] Med 05/09/25 22:45 Active 3 ml INH PRN PRN cefTRIAXone/D5w 1gm IV premix [Rocephin/D5w 1gm IV Med 05/09/25 22:45 Discontinued premix] 1 gm in 50 ml IV X1 Volume Ventilator Stat RT 05/09/25 22:29 Active Vital Signs Vital signs: Vital Signs Pulse Rate 102 H 05/09/25 22:13 Respiratory Rate 38 H 05/09/25 22:13 Blood Pressure 78/62 L 05/09/25 22:13 Pulse Oximetry (%) 71 L 05/09/25 22:13 Oxygen Delivery Method Oxy Mask 05/09/25 22:13 Shortness of Breath / Dyspnea MDM Narrative MDM Narrative:: Scribe Attestation: 05/09/25 Yodit Santiago am scribing for and in the presence of Dr. Arias. It was obvious from the beginning that the patient required intubation due to the decreased mental status and shallow breathing. Patient received 30 mg of etomidate and 100 mg of rocuronium was intubated with 7.5 endotracheal tube placed at 23 cm at the lips with equal breath sounds bilaterally and good color change by capnography. Follow-up chest x-ray showed the tip of the endotracheal tube to be near the jayson so it was removed 2 cm. Chest x-ray showed good placement of the orogastric tube with the tip below the diaphragm. Septic workup was initiated. Lactic acid level was 6.0. Chest x-ray shows obvious right upper lobe infiltrate. After cultures were obtained the patient received Rocephin 1 g IV and azithromycin 500 mg IV. Patient has a history of COPD as well as heart failure with preserved ejection fraction. Because of the heart failure the patient only received 2 L of IV normal saline and was started on norepinephrine drip due to the fact that her presenting blood pressure was 70/60. I placed a left femoral vein triple-lumen central line here in the emergency room using maximum sterile technique and barrier and the Salinger technique with blood return in all 3 lines. All 3 lines were flushed and the line was sutured in place and sterilely dressed. I also placed a left femoral artery arterial line for better blood pressure monitoring. This was done in sterile technique using the Salinger technique. After the patient was intubated ventilator 7 given to respiratory therapy were assist-control of 16, tidal volume of 500, FiO2 of 100%. PEEP was held because the patient originally was hypotensive. Patient received albuterol 10 mg and Atrovent 1 mg Med-Neb treatment over 1 hour. Patient overall did well with the above named treatment. Last blood pressure was 136/63. Patient is resting comfortably. Patient will obviously require admission to the ICU. Case was discussed with the hospitalist and the patient will be admitted to the hospital for further treatment and evaluation. I interpreted all labs. CAT scan of the brain is awaiting interpretation by the radiologist however it did not show obvious stroke or mass effect or intracerebral bleed. Differential diagnosis: Sepsis, pneumonia, CHF, acute coronary syndrome, intracerebral bleed Patient had multiple EKGs done here in the emergency room. None of the EKGs show ST segment elevation myocardial infarction. The first EKG was done at 10:11 PM shows a sinus tachycardia at a rate of [address] segment elevation. The last EKG was done at 10:39 PM showing sinus tachycardia at a rate of [address] segment elevation. Patient data External records reviewed:: [facility] previous records (Per chart review, patient was seen here on 01/26/25 for adrenal nodule.) and EMS form Clinical information provided by:: EMS Social determinants that could affect healthcare access:: none Patient has the following chronic illnesses:: COPD, diastolic heart failure, aFib on Eliquis, HTN, pacemaker, DM How is presenting disease/condition affected by chronic disease/condition?: exacerbated by Evaluation data The following diagnostics were reviewed and interpreted by me:: lab results, radiology exam(s) and EKG tracing(s) Lab and/or radiology exams considered but not ordered:: none Interpretation Summary: [facility] Report Signed Patient: CHITRA TOVAR. Record#: [id number] Birthdate: 1945 Age/Sex: 80 / F Location: [facility] Attending Dr: Ordering Physician: Jareth Arias DO Date of Service: 05/09/25 Procedure(s): XR chest 1V post procedure Accession Number(s): [id number] cc: Lang Sandoval MD; Addy Deleon MD; Jareth Arias DO~ Examination: AP chest single view Technique one AP portable semiupright chest single view Date and time: May 09, 2025 10:37 PM, comparison January 26, 2025 Indications: Hypoxic respiratory failure postintubation Findings: Endotracheal tube tip approximately 3.7 cm above jayson Extensive right lung pneumonia Mild enlargement cardiac contour, cardiac leads satisfactory position Recommend advancing the orogastric tube 3 cm Prominent osteopenia Impression: Interval extensive right lung pneumonia, consider aspiration pneumonia Tracheal tube tip 3.7 cm above jayson Advance the orogastric tube 3 cm Dictated By: Addy Deleon MD Signed By: <Electronically signed by Addy Deleon MD in [place]> 05/09/25 3677 Medications / Prescriptions Medications or Prescriptions considered but not ordered:: none Medication administrations:: Medication Administration History Norepinephrine/Dextrose (Levophed In D5w 8mg/250ml) 8 mg in 250 mls @ 11.907 mls/hr IV .Q21H PRN; Protocol PRN Reason: PER PROTOCOL Stop: 06/08/25 22:37 Last Titration: 05/10/25 01:16 Dose: 0.11 mcg/kg/min, 26.195 mls/hr Documented By: Titration: 05/10/25 01:11 Dose: 0.11 mcg/kg/min, 26.195 mls/hr Documented By: Titration: 05/10/25 01:06 Dose: 0.11 mcg/kg/min, 26.195 mls/hr Documented By: Titration: 05/10/25 01:01 Dose: 0.09 mcg/kg/min, 21.432 mls/hr Documented By: Titration: 05/10/25 00:56 Dose: 0.07 mcg/kg/min, 16.67 mls/hr Documented By: Titration: 05/10/25 00:51 Dose: 0.07 mcg/kg/min, 16.67 mls/hr Documented By: Titration: 05/10/25 00:46 Dose: 0.09 mcg/kg/min, 21.432 mls/hr Documented By: Titration: 05/10/25 00:41 Dose: 0.11 mcg/kg/min, 26.195 mls/hr Documented By: Titration: 05/10/25 00:36 Dose: 0.11 mcg/kg/min, 26.195 mls/hr Documented By: Titration: 05/10/25 00:31 Dose: 0.13 mcg/kg/min, 30.958 mls/hr Documented By: Titration: 05/10/25 00:26 Dose: 0.13 mcg/kg/min, 30.958 mls/hr Documented By: Titration: 05/10/25 00:21 Dose: 0.13 mcg/kg/min, 30.958 mls/hr Documented By: Titration: 05/10/25 00:16 Dose: 0.13 mcg/kg/min, 30.958 mls/hr Documented By: Titration: 05/10/25 00:11 Dose: 0.15 mcg/kg/min, 35.72 mls/hr Documented By: Titration: 05/10/25 00:06 Dose: 0.15 mcg/kg/min, 35.72 mls/hr Documented By: Titration: 05/10/25 00:01 Dose: 0.15 mcg/kg/min, 35.72 mls/hr Documented By: Titration: 05/09/25 23:56 Dose: 0.15 mcg/kg/min, 35.72 mls/hr Documented By: Titration: 05/09/25 23:51 Dose: 0.15 mcg/kg/min, 35.72 mls/hr Documented By: Titration: 05/09/25 23:46 Dose: 0.15 mcg/kg/min, 35.72 mls/hr Documented By: Titration: 05/09/25 23:41 Dose: 0.15 mcg/kg/min, 35.72 mls/hr Documented By: Titration: 05/09/25 23:36 Dose: 0.15 mcg/kg/min, 35.72 mls/hr Documented By: Titration: 05/09/25 23:31 Dose: 0.15 mcg/kg/min, 35.72 mls/hr Documented By: Titration: 05/09/25 23:26 Dose: 0.15 mcg/kg/min, 35.72 mls/hr Documented By: Titration: 05/09/25 23:21 Dose: 0.13 mcg/kg/min, 30.958 mls/hr Documented By: Titration: 05/09/25 23:16 Dose: 0.11 mcg/kg/min, 26.195 mls/hr Documented By: Titration: 05/09/25 23:11 Dose: 0.09 mcg/kg/min, 21.432 mls/hr Documented By: Titration: 05/09/25 23:06 Dose: 0.07 mcg/kg/min, 16.67 mls/hr Documented By: Titration: 05/09/25 23:01 Dose: 0.05 mcg/kg/min, 11.907 mls/hr Documented By: Titration: 05/09/25 22:56 Dose: 0.05 mcg/kg/min, 11.907 mls/hr Documented By: Titration: 05/09/25 22:51 Dose: 0.05 mcg/kg/min, 11.907 mls/hr Documented By: Titration: 05/09/25 22:46 Dose: 0.05 mcg/kg/min, 11.907 mls/hr Documented By: Titration: 05/09/25 22:41 Dose: 1 mcg/kg/min, 238.136 mls/hr Documented By: Titration: 05/09/25 22:35 Dose: 2 mcg/kg/min, 476.273 mls/hr Documented By: Admin: 05/09/25 22:31 Dose: 3 mcg/kg/min, 714.409 mls/hr Documented By: FRANTZ Sodium Chloride (Sodium Chloride Rt Suma 0.9% 3 Ml Nebu) 3 ml INH PRN PRN PRN Reason: SOLN Stop: 06/08/25 22:44 Last Admin: 05/09/25 23:39 Dose: 3 ml Documented By: FITZ Discontinued Medications Acetaminophen (Acetaminophen Supp 650 Mg Supp) 650 mg [place] X1 ONE Stop: 05/09/25 22:59 Last Admin: 05/09/25 23:11 Dose: 650 mg Documented By: FRANTZ Albuterol (Albuterol Rt 2.5 Mg/0.5 Ml Nebu) 10 mg INH X1 ONE Stop: 05/09/25 22:46 Last Admin: 05/09/25 23:39 Dose: 10 mg Documented By: FITZ Etomidate (Etomidate Inj 2 Mg/Ml Vial 10 Ml) Confirm Administered Dose 40 mg .ROUTE .STK-MED ONE Stop: 05/09/25 22:15 Last Admin: 05/09/25 22:24 Dose: Not Given Documented By: FRANTZ Non-Admin Reason: Override Medication Etomidate (Etomidate Inj 2 Mg/Ml Vial 10 Ml) 30 mg IVP X1 ONE Stop: 05/09/25 22:17 Last Admin: 05/09/25 22:18 Dose: 30 mg Documented By: FRANTZ Norepinephrine/Dextrose (Levophed In D5w 8mg/250ml) 8 mg in 250 mls @ 11.907 mls/hr IV .Q21H PRN; Protocol PRN Reason: PER PROTOCOL Stop: 06/08/25 22:19 Dobutamine HCl/Dextrose (Dobutrex/D5w Ivpb) Confirm Administered Dose 500 mg in 250 mls @ ud IV .STK-MED ONE Stop: 05/09/25 22:36 Last Admin: 05/09/25 23:26 Dose: Not Given Documented By: FRANTZ Non-Admin Reason: Override Medication Azithromycin 500 mg/ Sodium (Chloride) 250 mls @ 250 mls/hr IV X1 ONE Stop: 05/09/25 23:44 Last Infusion: 05/10/25 00:20 Dose: Infused Documented By: Admin: 05/09/25 23:18 Dose: 250 mls/hr Documented By: FRANTZ Ceftriaxone Sodium/Dextrose (Rocephin/D5w 1gm Iv Premix) 1 gm in 50 mls @ 100 mls/hr IV X1 ONE Stop: 05/09/25 23:14 Last Infusion: 05/09/25 23:43 Dose: Infused Documented By: Admin: 05/09/25 23:11 Dose: 100 mls/hr Documented By: FRANTZ Sodium Chloride (Ns) 1,000 mls @ 999 mls/hr IV .Q1H1M ONE Stop: 05/10/25 00:46 Last Infusion: 05/10/25 01:09 Dose: Infused Documented By: Admin: 05/09/25 23:48 Dose: 999 mls/hr Documented By: FRANTZ Sodium Chloride (Ns) 1,000 mls @ 999 mls/hr IV .Q1H1M ONE Stop: 05/10/25 00:46 Last Infusion: 05/10/25 01:09 Dose: Infused Documented By: Admin: 05/09/25 23:49 Dose: 999 mls/hr Documented By: FRANTZ Ipratropium [place] (Ipratropium Rt 0.5 Mg/ 2.5 Ml Nebu) 1 mg INH X1 ONE Stop: 05/09/25 22:46 Last Admin: 05/09/25 23:38 Dose: 1 mg Documented By: FITZ Rocuronium [place] (Rocuronium Inj 10 Mg/Ml Vial 10 Ml) Confirm Administered Dose 100 mg .ROUTE .STK-MED ONE Stop: 05/09/25 22:14 Last Admin: 05/09/25 22:24 Dose: Not Given Documented By: FRANTZ Non-Admin Reason: Override Medication Rocuronium [place] (Rocuronium Inj 10 Mg/Ml Vial 10 Ml) 100 mg IVP X1 ONE Stop: 05/09/25 22:17 Last Admin: 05/09/25 22:19 Dose: 100 mg Documented By: FRANTZ Co-signed By: HEBER see above Consultations Consultation(s) initiated? (list below): Yes Consultation #1 (Physician, Specialty, Details): Discussed case with Dr. Geller from Hospitalist/ICU service regarding admission. Discussed patients ED course, exam findings, labs, and radiology results. The Hospitalist agrees to accept the patient for admission. Diagnosis Shortness of Breath Differential Diagnosis: other (See MDM.) Most likely diagnosis given after review of the tests above:: see clinical impression below Admission Indicated Admission indicated?: indicated Admission Request Was there a request for admission?: Yes Admission Attestation Admission request attestation: Discussed case with [] from Hospitalist service regarding admission. Discussed patients ED course, exam findings, labs, and radiology results. The Hospitalist [agrees,declines] to accept the patient for admission. Disposition Plan Disposition Plan: Admit Critical Care Time Critical Care Time Critical Care Time: Yes Total Critical Care Time (min.): 75 Attestation: Excluding other billable procedures Discharge Plan Plan Patient Disposition: Admit Acute Care w/in Hospital Prescriptions/Referrals Prescriptions/Med Rec: No Action Eliquis 2.5 mg tablet 2.5 mg PO BID pioglitazone [Actos] 15 mg tablet 15 mg PO QDAY metoclopramide HCl 10 mg Tablet 10 mg PO BID amiodarone 200 mg tablet 200 mg PO QDAY Patient Comments: TAKE 1 TABLET BY MOUTH EVERY DAY amlodipine 5 mg tablet 5 mg PO QDAY Patient Comments: TAKE 1 TABLET BY MOUTH EVERY DAY bupropion HCl 200 mg tablet sustained-release 12 hr 200 mg PO BID Patient Comments: TAKE 1 TABLET BY MOUTH TWICE A DAY escitalopram oxalate 20 mg tablet 20 mg PO QDAY Patient Comments: TAKE 1 TABLET BY MOUTH EVERY DAY levothyroxine 75 mcg Tablet 75 mcg PO QDAY atorvastatin 10 mg Tablet 10 mg PO QDAY insulin glargine [Lantus Solostar U-100 Insulin] 100 unit/mL (3 mL) Insulin Pen 30 unit SUBCUT QAM trazodone 150 mg tablet 150 mg PO HS Patient Comments: TAKE 1 TABLET BY MOUTH AT BEDTIME naloxone [Narcan] 4 mg/actuation spray,non-aerosol 4 mg intranasal Q3M PRN (Reason: opioid overdose) Qty: 2 2RF Rx Instructions: spray 1 dose into ONE nostril; alternate nostrils w each dose until help arrives cephalexin 500 mg capsule 500 mg PO BID Qty: 10 0RF amlodipine 10 mg tablet 10 mg PO QDAY Qty: 30 0RF cephalexin 500 mg capsule 500 mg PO QID Qty: 28 0RF Referrals: Lang Sandoval MD [Primary Care Provider, Family Practice] - In 1 week Problem List Clinical Impression: Respiratory failure, Septic shock, Right upper lobe pneumonia Patient/Caregiver Discharge Instructions Print Language: Maori Stand Alone Forms: [facility] Award Info., Patient Portal Info Letter
--- NOTE | 2025-05-09 22:44 | EKG_ITS ---
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1945 Requested By: Jareth Pepe Order Number: [id number] Reading MD: Jareth Pepe Measurements Intervals [place] Rate: 133 P: 78 [place]: 125 QRS: 266 QRSD: 146 T: 14 QT: 391 QTc: 582 Interpretive Statements SINUS TACHYCARDIA RIGHT AXIS DEVIATION [QRS AXIS > 100] INTRAVENTRICULAR CONDUCTION DELAY [130+ ms QRS DURATION] Compared to ECG 05/09/2025 22:23:29 Right-axis deviation now present Intraventricular conduction delay now present Sinus rhythm no longer present Indeterminate axis no longer present Right bundle-branch block no longer present Myocardial infarct finding no longer present /store/S0/[id number].pdf
--- NOTE | 2025-05-09 22:58 | PC.NURSE ---
THE REMAINDER OF etomidate WAS WASTED WITH LIANNA GE
[2025-05-09] MEDS: cefTRIAXone/D5w 1gm IV premix 1 GM/50 ML BAG IV (23:11)
[2025-05-09] MEDS: ACETAMINOPHEN SUPP 650 MG SUPP PR (23:11)
[2025-05-09] MEDS: AZITHROMYCIN INJ 500 MG in SODIUM CHLORIDE 0.9% 250 ML 250 ML 250 MG IV (23:18)
[2025-05-09 23:19] LABS: Base Excess -7 (-3-3); HCO3 20 mEq/L (20-26); Inspired Oxygen, FIO2 21 %; O2 Saturation 97 % (91-98); PCO2 41 mmHg (32.0-48.0); PO2 133 mmHg (83-108); pH, Arterial 7.29 (7.35-7.45)
[2025-05-09 23:29] LABS: Allen Test Performed/OK; Puncture Site Right Radial
[2025-05-09 23:37] LABS: Lactate (Lactic Acid) 6.0 mMol/L (0.4-2.0)
[2025-05-09] MEDS: IPRATROPIUM RT 0.5 MG/ 2.5 ML NEBU 1 MG INH (23:38)
[2025-05-09] MEDS: ALBUTEROL RT 2.5 MG/0.5 ML NEBU 10 MG INH (23:39)
[2025-05-09] MEDS: SODIUM CHLORIDE RT SOL 0.9% 3 ML NEBU INH (23:39)
[2025-05-09 23:40] LABS: Basophils # (Auto) 0.1 Thou/mm3 (0.0-0.2); Basophils % (Auto) 0 % (0-2.5); Eosinophils # (Auto) 0.0 Thou/mm3 (0.0-0.5); Eosinophils % (Auto) 0 % (0-10); Hematocrit 41.9 % (36.0-46.0); Hemoglobin 13.5 g/dL (12.0-16.0); Immature Granulocytes Auto 0.32 Thou/mm3 (0.00-0.00); Lymphocytes # (Auto) 2.6 Thou/mm3 (1.0-4.8); Lymphocytes % (Auto) 11 % (10-50); Mean Corpuscular HGB Conc 32.2 g/dl (31.0-37.0); Mean Corpuscular Hemoglobin 30.2 pg (25.0-35.0); Mean Corpuscular Volume 94 fL (80-100); Monocytes # (Auto) 2.0 Thou/mm3 (0.0-0.8); Monocytes % (Auto) 8 % (0-12); Neutrophils # (Auto) 19.2 Thou/mm3 (1.8-7.7); Neutrophils % (Auto) 79 % (37-80); Nucleated Red Blood Cell # 0.00 Thou/mm3 (0.00-0.00); Nucleated Red Blood Cell % 0 /100 WBC (0); Platelet Count 225 Thou/mm3 (140-440); RDW Standard Deviation 48.8 fL (36.4-46.3); Red Blood Count 4.47 Miln/mm3 (4.00-5.20); White Blood Count 24.2 Thou/mm3 (3.6-11.0)
--- NOTE | 2025-05-09 23:47 | XR_ITS ---
Examination: CT brain head without contrast. 2-D sagittal coronal reconstructions Date and time of exam:May 10 T2 thousand 25, 0120 hrs. Indications: Onset altered mental status today with respiratory distress CTDI: vol (mGy):60.80 DLP: (mGycm):1285 Technique: Multiple CT axial sections of the brain have been obtained, 5 mm slice thickness. Contrast has not been administered. 2-D sagittal, coronal reconstructions have been obtained Low dose protocols were performed. One or more of the following dose reduction techniques were used; automated exposure control, adjustment of the mA and/or KV according to patient size, use of iterative reconstruction technique. Findings: Mild ventricular enlargement. There is soft tissue prominence measuring 10 mm in thickness left olfactory tract, coronal image 14 Intra-axial or extra-axial hemorrhage density is not seen. No mass effect or midline shift Basal cisterns are not remarkable. Fourth ventricle is midline. Cranial vault intact. Impression: Negative for acute hemorrhage, mass effect or midline shift Advise clinical correlation follow-up accordingly Recommend elective MRI brain follow-up pre and postcontrast to assess soft tissue prominence in 10 mm in thickness left olfactory tract
[2025-05-09] MEDS: SODIUM CHLORIDE 0.9% 1000 ML 1,000 ML 999 ML IV ×2 (23:48→23:49)
[2025-05-09 23:51] LABS: INR 1.4 (0.9-1.3); Prothrombin Time 14.9 Seconds (9.0-12.2)
[2025-05-09 23:51] LABS: Collection Type, Urine Voided
[2025-05-10] VITALS (117 sets, daily range): BP systolic 60–300; BP diastolic 28–144; PULSE 71–112; RESP 14–32; TEMP 36.6–38.7; O2SAT 85–100; BMI 39.2
[2025-05-10 00:02] LABS: Alanine Aminotransferase 14 U/L (10-49); Albumin, Serum 3.9 gm/dL (3.4-4.8); Albumin/Globulin Ratio 1.4 (1.2-2.2); Alkaline Phosphatase 59 U/L (46-116); Anion Gap 15 (7-16); Aspartate Amino Transferase 24 U/L (0-34); BUN/Creatinine Ratio 9 Ratio (12-20); Bilirubin,Total 1.4 mg/dL (0.3-1.2); Blood Urea Nitrogen 20 mg/dL (9-23); Calcium 10.1 mg/dL (8.3-10.6); Calcium (Corrected) 10.2 mg/dL (8.5-10.1); Carbon Dioxide 22.3 mMol/L (20.0-31.0); Chloride 99 mMol/L (98-107); Creatinine (Component) 2.2 mg/dL (0.6-1.3); Estimated Creatinine Clearance 27.4 mL/min (>60); Globulin 2.7 gm/dL (2.3-3.5); Glucose 322 mg/dL (74-106); Osmolality,Calculated 286 (275-295); Potassium 3.8 mMol/L (3.4-5.1); Procalcitonin 23.41 ng/ml (0.0-0.49); Sodium 136 mMol/L (136-145); Thyroid Stimulating Hormone 6.10 uIU/mL (0.55-4.78); Total Protein 6.6 gm/dL (5.7-8.2); eGFR 22 See Note
[2025-05-10 00:04] LABS: Troponin I 0.545 ng/mL (0.0-0.045)
[2025-05-10 00:06] LABS: Bilirubin,Urine Negative (Negative); Blood,Urine 2+ (Negative); Budding Yeast,Urine Present; Clarity,Urine Turbid (Clear/Hazy); Color,Urine Orange (Lt Yel-Yel); Glucose, Urine 4+ (Negative); Ketones,Urine Trace (Negative); Leukocyte Esterase,Urine Positive (Negative); Nitrite,Urine Negative (Negative); PH,Urine 6.5 (5.0-7.0); Protein,Urine 3+ (Neg - Trace); RBC,Urine 106 /hpf (0-3); Specific Gravity,Urine 1.025 (1.001-1.035); Squamous Epithelial Cell,Urine 24 /hpf (0-5); Urobilinogen,Urine Negative mg/dL (0.0-1.0); WBC,Urine 4237 /hpf (0-5)
[2025-05-10 00:09] LABS: B-Type Natriuretic Peptide 2753 pg/mL (0-100)
[2025-05-10 00:15] LABS: Amphetamine/Methamp Scrn,U Negative (Negative); Barbiturate Screen,Urine Negative (Negative); Benzodiazepines Screen,Urine Negative (Negative); Benzoylecgonine Screen, Ur Negative (Negative); Fentanyl Screen,Urine Negative (Negative); Opiate Screen,Urine Positive (Negative); THC Screen,Urine Negative (Negative)
--- NOTE | 2025-05-10 02:20 | PRELIM_ITS ---
CT scan of the head without intravenous contrast (axial sections with sagittal and coronal reformats). May 10, 2025 0120 hours Clinical History: Altered mental status Comparison: None Findings: There is a extra-axial density/mass along the left olfactory tract measuring approximately 2 cm in AP dimension, 1 cm in superior inferior dimension and 0.8 cm in transverse dimension. There is no intracranial hemorrhage, extra-axial collection or midline shift. There is moderate white matter disease within the cerebral hemispheres which is nonspecific but may represent chronic small vessel ischemic change. There is involutional atrophy of the cerebral hemispheres and cerebellum. There is no CT evidence of acute large vascular territorial infarct. Ventricles are not enlarged for the degree of involutional atrophy. There is asymmetry of the lateral ventricles due to slight rightward positioning of the septum pellucidum. There is atherosclerotic calcification along the intracranial vertebral arteries and carotid siphons. Visualized paranasal sinuses and tympanomastoid cavities are clear for mild right sphenoid sinus mucosal thickening/fluid. The bony calvarium is intact. Impression: Extra-axial density/mass along the left olfactory tract. Recommend MRI brain pre-and post intravenous contrast for further evaluation if clinically feasible. No intracranial hemorrhage or midline shift. No CT evidence of acute large vascular territorial infarct. Report Electronically Signed By: Nahum Uribe 05/10/2025 2:20:06 AM [EST]
[2025-05-10 02:21] LABS: Reflex Lactate? Y
[2025-05-10 02:48] LABS: Lactic Acid, 3 HR 2.7 mMol/L (0.4-2.0)
[2025-05-10] MEDS: Norepinephrine/D5W 8mg/250ml 8 MG/250 ML BAG 26.195 MG IV (04:44)
[2025-05-10 05:19] LABS: Albumin, Serum 3.7 gm/dL (3.4-4.8); Anion Gap 12 (7-16); BUN/Creatinine Ratio 9 Ratio (12-20); Blood Urea Nitrogen 21 mg/dL (9-23); Calcium 9.5 mg/dL (8.3-10.6); Calcium (Corrected) 9.7 mg/dL (8.5-10.1); Carbon Dioxide 21.4 mMol/L (20.0-31.0); Chloride 104 mMol/L (98-107); Creatinine (Component) 2.4 mg/dL (0.6-1.3); Estimated Creatinine Clearance 25.1 mL/min (>60); Free T4 (Free Thyroxine) 1.45 ng/dL (0.89-1.76); Glucose 274 mg/dL (74-106); Osmolality,Calculated 286 (275-295); Phosphorous 4.8 mg/dL (2.4-5.1); Potassium 4.0 mMol/L (3.4-5.1); Sodium 137 mMol/L (136-145); eGFR 20 See Note
[2025-05-10 05:23] LABS: Troponin I 0.640 ng/mL (0.0-0.045)
[2025-05-10] MEDS: fentaNYL 2,500 MCG/250 ML BAG 2,500 MCG/250 ML BAG IV (05:24)
[2025-05-10] MEDS: ACETAMINOPHEN 325 MG TABLET 650 MG PO ×2 (06:12→21:34)
--- NOTE | 2025-05-10 06:49 | PD.HHHP ---
Documentation for date of: 05/10/25 HPI - Hospitalist History of Present Illness History of Present Illness: Shortness of breath, fever History of present illness: 80 year-old female with PMHx noted for HFpEF, A-fib on Eliquis, bradycardia s/p pacemaker placement in 2022, hypothyroidism,chronic back pain, IDDM II, and hypertension was brought in from home by ambulance for complaints of worsening shortness of breath. No further history obtained from EMS, at the ED patient's BP 75/50 with heart rate of 102 and temp 105.1, labs were pH 7.29 WBC 24, creatinine 2.2, lactate 6, troponin 45, BNP 2800, Pro-Jamshid 23, and TSH of 6. ABG pH 7.29 and pCO2 of 41. CXR showed significant right lobar pneumonia with UA noted for high WBC/RBC/epithelial cells. Head CT was negative for acute findings, patient was intubated, femoral central line along with femoral arterial line were placed in ED. Patient received 3L of LR boluses, received 1 dose of ceftriaxone and azithromycin and was started on Levophed along with dobutamine. Patient will be admitted to ICU for further management and care of septic shock along with acute hypoxic respiratory failure in setting of community-acquired pneumonia. Review of Systems Review of Systems ROS Unobtainable: due to endotracheal tube Past Medical History Surgical History SURGICAL: Positive Hysterectomy Social History SMOKING STATUS: Never smoker SUBSTANCE USE: does not use OCCUPATION: Retired. Single. Past Medical History Comments PMH COMMENT: PMH: Diabetes, HFpEF, A-fib, hypothyroidism, HTN, chronic back pain PSH: Cholecystectomy, 3 back surgeries SH: Does not drink or use illicit drugs. Smoked 1 pack a day for many years , quit 3 months ago. Allergies:?sulfa Medications: amiodarone, amlodipine, eliquis, atorvastatin, bupropion, escitalopram, gabapentin, hydromorphone, Lantus, levothyroxine, Reglan, pioglitazone, trazodone, montelukast. Meds Home Medications and Allergies Home Medications ?Medication ?Instructions ?Recorded ?Confirmed ?Type metoclopramide HCl 10 mg tablet 10 mg PO BID 02/28/18 05/10/25 History levothyroxine 75 mcg tablet 75 mcg PO QDAY 02/14/23 05/10/25 History amiodarone 200 mg tablet 200 mg PO QDAY 04/10/23 05/10/25 History bupropion HCl 200 mg tablet,12 hr 200 mg PO BID 04/10/23 05/10/25 History sustained-release escitalopram oxalate 20 mg tablet 20 mg PO QDAY 04/10/23 05/10/25 History apixaban 2.5 mg tablet (Eliquis) 2.5 mg PO BID 11/06/23 05/10/25 History pioglitazone 15 mg tablet (Actos) 15 mg PO QDAY 11/06/23 05/10/25 History atorvastatin 10 mg tablet 10 mg PO QDAY 04/15/24 05/10/25 History insulin glargine 100 unit/mL (3 30 unit subcut QAM 04/15/24 05/10/25 History mL) subcutaneous pen (Lantus Solostar U-100 Insulin) trazodone 150 mg tablet 150 mg PO HS PRN insomnia 04/15/24 05/10/25 History carvedilol 3.125 mg tablet 3.125 mg PO QDAY 05/10/25 05/10/25 History hydromorphone 8 mg tablet 8 mg PO Q6H PRN pain 05/10/25 05/10/25 History insulin regular human 100 unit/mL 1 sliding scale dose subcut ACHS 05/10/25 05/10/25 History (3 mL) subcutaneous pen (Novolin R FlexPen) losartan 50 mg tablet 50 mg PO QDAY 05/10/25 05/10/25 History Allergies Allergy/AdvReac Type Severity Reaction Status Date / Time Sulfa (Sulfonamide Allergy Severe ITCHY Verified 05/09/25 22:07 Antibiotics) tomato Allergy Severe Rash Verified 05/09/25 22:07 Exam Vital Signs Temp Pulse Resp BP Pulse Ox O2 Del Method FiO2 101.1 F H 93 30 H 121/45 L 95 Mechanical Ventilation 85 05/10/25 06:12 05/10/25 06:24 05/10/25 06:02 05/10/25 06:24 05/10/25 06:24 05/10/25 06:02 05/10/25 06:24 Narrative General: Morbidly obese, in no distress, normal mood and affect. HEENT: Normocephalic, atraumatic, anicteric, EOM intact, PERRLA Heart: RRR, no murmur or gallop. Lungs: Clear to auscultation with equal breath sounds bilaterally. Abdomen: Bowel sounds normal, no tenderness or guarding, no CVA tenderness Extremities: Sensation, circulation, motor function intact and equal in all extremities. Neurologic: Alert and oriented to name, place and date of , CN II-XII intact, DTRs normal Results - Hospitalist Labs Diagrams: 05/09/25 23:02 05/10/25 04:47 Labs: Short CBC 05/09/25 Range/Units 23:02 WBC 24.2 H (3.6-11.0) Thou/mm3 Hgb 13.5 (12.0-16.0) g/dL Hct 41.9 (36.0-46.0) % Plt Count 225 (140-440) Thou/mm3 BMP 05/09/25 05/10/25 23:02 04:47 Sodium 136 137 Potassium 3.8 4.0 Chloride 99 104 Carbon Dioxide 22.3 21.4 BUN 20 21 Creatinine 2.2 H 2.4 H Glucose 322 H 274 H Calcium 10.1 9.5 Cardiac Enzymes 05/09/25 05/10/25 Range/Units 23:02 04:47 Troponin I 0.545 H* 0.640 H* (0.0-0.045) ng/mL Liver Function 05/09/25 05/10/25 Range/Units 23:02 04:47 Total Bilirubin 1.4 H (0.3-1.2) mg/dL AST 24 (0-34) U/L ALT 14 (10-49) U/L Alkaline Phosphatase 59 (46-116) U/L Albumin 3.9 3.7 (3.4-4.8) gm/dL Urine 05/09/25 Range/Units 23:41 Urine Color [place] A (Lt Yel-Yel) Urine Clarity Turbid A (Clear/Hazy) Urine pH 6.5 (5.0-7.0) Ur Specific [place] 1.025 (1.001-1.035) Urine Protein 3+ A (Neg - Trace) Urine Glucose (UA) 4+ A (Negative) ABG Interpretation ABG results: 05/09/25 23:08 ABG pH 7.29 L ABG pCO2 41 ABG pO2 133 H ABG HCO3 20 ABG O2 Saturation 97 ABG Base Excess -7 L Assessment & Plan -Hospitalist Additional Assessment 80 year-old female with PMHx noted for HFpEF, A-fib on Eliquis, bradycardia s/p pacemaker placement in 2022, hypothyroidism,chronic back pain, IDDM II, and hypertension admitted to ICU for further management and care of septic shock along with acute hypoxic respiratory failure in setting of community-acquired pneumonia. 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 Patient started on fentanyl drip to maintain RASS score -2 Daily awakening trials. CVS: #Septic shock 2/2 CAP #HFpEF #NSTEMI likely type II Patient received IVF per sepsis protocol. Patient started on vasopressor support. Maintain MAP>65 Strict I's and O's Follow-up repeat troponin Repeat echo ordered #Atrial fibrillation Patient noted to be in sinus tachycardia. Continue home amiodarone. Continue home apixaban 2.5 mg twice daily. PULM: #Acute hypoxic respiratory failure #Community-acquired pneumonia Secondary to septic shock and HFpEF Intubated and mechanically ventilated Maintained on O2 saturation> 90% Renal: #KRYSTAL on CKD #Anemia #AGMA #Lactic acidosis Prerenal KRYSTAL in setting of septic shock patient given IVF per sepsis protocol Avoid nephrotoxic/ renally dose medications Monitor I&O's Follow-up renal panel and repeat ABG Endocrine: #IDDM II Patient on 30 units of insulin glargine daily at home along with regular insulin Patient started on 15 units of degludec daily. Patient started on insulin sliding scale #Hx of Hypothyroidism #Subclinical hypothyroidisim Continue Home levothyroxine TSH elevated at 6 with normal FT4 Likely elevated in setting of acute illness Maintain current levothyroxine dose and follow-up outpatient. GI: #Elevated T. bili Insetting of septic shock, continue to trend Heme: #Leukocytosis In setting of septic shock/community-acquired pneumonia ID: Community-acquired pneumonia Patient started on renally dosed cefepime and azithromycin Follow-up sputum and blood cultures Follow-up CBC De-escalate antibiotic therapy as warranted Skin: No active issues DVT prophylaxis: Apixaban 2.5mg twice daily Diet: N.p.o. Mena: None Lines: PIV, central femoral line, central femoral arterial line CODE STATUS: Full code After examination of the patient and review of the clinical data I feel that this patient needs admission to the hospital for further treatment/evaluation. TOTAL CC TIME: 60 MIN TOTAL TIME: 60 Minutes of direct medical management and planning of care. Quality Measures Quality Measures VTE prophylaxis, sepsis Current suspected stage: septic shock (LA >4 and/or hypotension) Sepsis reassessment completed at (date): 05/10/25 Sepsis reassessment completed at (time): 06:00 Possible source: pulmonary Blood cultures ordered: yes Antibiotic ordered: Yes and none Advance care planning discussed with:: other (No one at this time)
[2025-05-10 07:27] LABS: Base Excess -6 (-3-3); HCO3 21 mEq/L (20-26); Inspired Oxygen, FIO2 85 %; O2 Saturation 95 % (91-98); PCO2 49 mmHg (32.0-48.0); PO2 95 mmHg (83-108); pH, Arterial 7.25 (7.35-7.45)
[2025-05-10 07:28] LABS: Puncture Site Arterial Line
--- NOTE | 2025-05-10 07:50 | ECHO_ITS ---
Transthoracic Echo Report Ht (in): 65 Wt (lb): 235 Exam Location: Echo Lab Status: Inpatient Scallop Cutter Machine: Delfina Puente Indications: Procedure Performed: BP: 125 / 47 HR: 77 Technical Quality: Technically difficult study MEASUREMENTS (Male / Female) Normal Values 2D ECHO LV Diastolic Diameter PLAX 4.8 cm 4.2 - 5.9 / 3.9 - 5.3 cm LV Systolic Diameter PLAX 3.6 cm IVS Diastolic Thickness 1.2 cm 0.6 - 1.0 / 0.6 - 0.9 cm LVPW Diastolic Thickness 1.2 cm 0.6 - 1.0 / 0.6 - 0.9 cm LV Relative Wall Thickness 0.5 LVOT Diameter 2.2 cm Aortic Root Diameter 3.1 cm LV Ejection Fraction MOD BP 50.7 % >= 55 % LV Cardiac Index MOD BP 1711.8 cm?/min?m? LV Ejection Fraction MOD 4C 52.9 % LV Cardiac Index MOD 4C 1446.4 cm?/min?m? LV Ejection Fraction 4C AL 53.1 % LV Cardiac Index 4C AL 1488.1 cm?/min?m? LV Ejection Fraction MOD 2C 52.2 % LV Cardiac Index MOD 2C 2058.9 cm?/min?m? LV Ejection Fraction 2C AL 52.3 % LV Cardiac Index 2C AL 2139.8 cm?/min?m? LA Volume Index 18.6 cm?/m? 16 - 28 cm?/m? Ascending Aorta Diameter 3.0 cm M-MODE Aortic Root Diameter MM 2.7 cm LA Systolic Diameter MM 3.4 cm LA Ao Ratio MM 1.3 AV Cusp Separation MM 1.3 cm DOPPLER AV Peak Velocity 162.0 cm/s AV Peak Gradient 10.5 mmHg AV Mean Gradient 5.0 mmHg AV Velocity Time Integral 33.2 cm LVOT Peak Velocity 112.0 cm/s LVOT Peak Gradient 5.0 mmHg LVOT Velocity Time Integral 23.4 cm LVOT Cardiac Index 3027.2 cm?/min?m? AV Area Cont Eq vti 2.7 cm? AV Area Cont Eq pk 2.6 cm? MV Area PHT 3.7 cm? Mitral E Point Velocity 72.6 cm/s Mitral A Point Velocity 71.8 cm/s Mitral E to A Ratio 1.0 LV E' Lateral Velocity 5.3 cm/s Mitral E to LV E' Lateral Ratio 13.8 LV E' Septal Velocity 3.0 cm/s Mitral E to LV E' Septal Ratio 24.2 TR Peak Velocity 228.5 cm/s TR Peak Gradient 20.9 mmHg PV Peak Velocity 132.0 cm/s PV Peak Gradient 7.0 mmHg FINDINGS Left Ventricle Normal left ventricular size, systolic function with no obvious regional wall motion abnormalities. Mild LVH. The ejection fraction is visually estimated at 50-55%. There is grade I diastolic dysfunction of the left ventricle (impaired relaxation pattern). Right Ventricle The right ventricular size is mildy increased with normal systolic function. Huertas sign present. Left Atrium The left atrium is normal by two-dimensional, color flow and Doppler imaging with no structural abnormalities, no thrombus formation present. Right Atrium The right atrium is normal by two-dimensional imaging, color flow and Doppler imaging with no structural abnormalities, no thrombus formation present. Atrial Septum The interatrial septum appears normal with no evidence of a shunt. Aorta The aorta is normal by two-dimensional, color flow and Doppler interrogation. Mitral Valve The mitral valve is normal by two-dimensional, color flow and Doppler interrogation. Trace mitral regurgitation. Aortic Valve The aortic valve is trileaflet and normal by two-dimensional, color flow and Doppler interrogation. There is no significant aortic valve regurgitation. Tricuspid Valve The tricuspid valve is normal by two-dimensional, color flow and Doppler interrogation. There is mild tricuspid valve regurgitation. Pulmonic Valve The pulmonic valve is not well visualized. There is no significant pulmonic valve regurgitation. Vessels The pulmonary artery appears normal. The inferior vena cava pulmonary and hepatic veins appear normal. Pericardium The pericardium is normal by two-dimensional imaging. There is no significant pericardial effusion. CONCLUSIONS Indication: CHF/AHRF Normal LV size. Mild LVH. Estimated EF at 50-55%. There is grade I diastolic dysfunction. The RV size is mildy increased with normal systolic function. Huertas sign present. Trace MR. Mild TR. Jeremymagalisfemi Albrechtjuni (Electronically Signed) Final Date: 12 May 2025 09:18
--- NOTE | 2025-05-10 07:51 | PC.NURSE ---
Per xray recommendations, advanced OG tube 3cm, Dr. Callaway aware of advancing tube, no new ordered required for repeat xray. May use OG tube
[2025-05-10] MEDS: RINGERS LACTATED 1000 ML 1,000 ML 999 ML IV (08:04)
[2025-05-10] MEDS: CEFEPIME INJ 2 GM in SODIUM CHLORIDE 0.9% (Popper) 50 ML IV (09:12)
[2025-05-10] MEDS: AZITHROMYCIN INJ 250 MG, Sterile Water 2.5 ML in SODIUM CHLORIDE 0.9% 250 ML 250 ML 252.5 MG IV (09:12)
[2025-05-10] MEDS: INSULIN DEGLUDEC 5 UNIT/0.05 ML (PER 5 UNITS) 15 UNIT SC (09:12)
[2025-05-10] MEDS: ESCITALOPRAM OXALATE 10 MG TABLET 20 MG PO (09:13)
[2025-05-10] MEDS: APIXABAN 2.5 MG TABLET PO ×2 (09:13→20:14)
[2025-05-10] MEDS: AMIODARONE HCL 200 MG TABLET PO (09:13)
[2025-05-10] MEDS: LEVOTHYROXINE SODIUM 25 MCG TABLET 75 MCG PO (09:13)
[2025-05-10 10:53] LABS: Troponin I 0.388 ng/mL (0.0-0.045)
[2025-05-10] MEDS: INSULIN LISPRO (AdmeLOG) 1 UNIT/0.01 ML UNIT SC ×2 (12:17→18:09)
--- NOTE | 2025-05-10 14:27 | XR_ITS ---
Examination: AP chest single view Technique: AP portable semiupright chest single view Date and time: May 10, 2025 1437 hrs., Comparison 05/09/2025 Indications: Severe pneumonia right lung, hypoxic respiratory failure postintubation Findings: Severe pneumonia right lung again depicted Orogastric tube in stomach satisfactory position Mild enlargement cardiac contour. Tracheal tube tip 8 cm above jayson Impression: Severe pneumonia right lung pneumonia noted
[2025-05-10] MEDS: MIDAZOLAM INJ 1 MG/ML VIAL 2 ML 4 MG IVP (14:45)
--- NOTE | 2025-05-10 15:49 | PD.RESHP ---
Documentation for date of: 05/10/25 HPI History of Present Illness History of present illness: is a -year-old with a PMH of who presents today with In the ED, vitals showed: BP HR RR Temp SpO2 on room air ED Course: CBC showed Imaging: In the ED, patient was started on Patient was admitted for the work-up and management of was consulted and is closely following the case. Review of Systems Review of Systems Narrative Review of Systems: General: Denies fevers or chills HEENT: Denies congestion or sore throat Heart: Denies chest pain or palpitations Lungs: Denies shortness of breath or cough Abdomen: Denies abdominal pain, nausea, vomiting, constipation, diarrhea, or blood in stool Genitourinary: Denies frequency, urgency, dysuria, or hematuria Neurology: Denies any changes in vision, weakness or difficulty speaking Review of systems otherwise negative except what is mentioned above. Past Medical History Past Medical History Comments PMH COMMENT: PMH: PSH: Medications: Allergies: FH: SH: Exam Vital Signs Temp Pulse Resp BP Pulse Ox O2 Del Method FiO2 97.9 F 80 30 H 96/48 L 97 Mechanical Ventilation 65 05/10/25 12:01 05/10/25 14:23 05/10/25 06:31 05/10/25 14:23 05/10/25 14:23 05/10/25 12:01 05/10/25 14:23 Narrative Exam Gen: Intubated, vitals reviewed Head/Neck: NCAT; trachea appears midline, no gross LAD ENT: Anicteric sclerae; MMM Resp: symmetric chest rise, on vent CV: RRR; extremities perfused GI: non-distended; no TTP Ext: no clubbing, cyanosis or edema Skin: no new rash or lesions on limited visual exam Neuro/MSK: appropriate; lines clean & dry Results: Labs 05/09/25 23:02 05/10/25 04:47 Labs: Short CBC 05/09/25 Range/Units 23:02 WBC 24.2 H (3.6-11.0) Thou/mm3 Hgb 13.5 (12.0-16.0) g/dL Hct 41.9 (36.0-46.0) % Plt Count 225 (140-440) Thou/mm3 BMP 05/09/25 05/10/25 23:02 04:47 Sodium 136 137 Potassium 3.8 4.0 Chloride 99 104 Carbon Dioxide 22.3 21.4 BUN 20 21 Creatinine 2.2 H 2.4 H Glucose 322 H 274 H Calcium 10.1 9.5 Cardiac Enzymes 05/09/25 05/10/25 05/10/25 Range/Units 23:02 04:47 10:15 Troponin I 0.545 H* 0.640 H* 0.388 H* D (0.0-0.045) ng/mL Liver Function 05/09/25 05/10/25 Range/Units 23:02 04:47 Total Bilirubin 1.4 H (0.3-1.2) mg/dL AST 24 (0-34) U/L ALT 14 (10-49) U/L Alkaline Phosphatase 59 (46-116) U/L Albumin 3.9 3.7 (3.4-4.8) gm/dL Urine 05/09/25 Range/Units 23:41 Urine Color [place] A (Lt Yel-Yel) Urine Clarity Turbid A (Clear/Hazy) Urine pH 6.5 (5.0-7.0) Ur Specific [place] 1.025 (1.001-1.035) Urine Protein 3+ A (Neg - Trace) Urine Glucose (UA) 4+ A (Negative) ABG Interpretation ABG results: 05/09/25 05/10/25 23:08 07:18 ABG pH 7.29 L 7.25 L ABG pCO2 41 49 H ABG pO2 133 H 95 D ABG HCO3 20 21 ABG O2 Saturation 97 95 ABG Base Excess -7 L -6 L Quality Measures Quality Measures VTE prophylaxis, sepsis Possible source: pulmonary Blood cultures ordered: yes and none Medications Home Medications and Allergies Home Medications ?Medication ?Instructions ?Recorded ?Confirmed ?Type metoclopramide HCl 10 mg tablet 10 mg PO BID 02/28/18 05/10/25 History levothyroxine 75 mcg tablet 75 mcg PO QDAY 02/14/23 05/10/25 History amiodarone 200 mg tablet 200 mg PO QDAY 04/10/23 05/10/25 History bupropion HCl 200 mg tablet,12 hr 200 mg PO BID 04/10/23 05/10/25 History sustained-release escitalopram oxalate 20 mg tablet 20 mg PO QDAY 04/10/23 05/10/25 History apixaban 2.5 mg tablet (Eliquis) 2.5 mg PO BID 11/06/23 05/10/25 History pioglitazone 15 mg tablet (Actos) 15 mg PO QDAY 11/06/23 05/10/25 History atorvastatin 10 mg tablet 10 mg PO QDAY 04/15/24 05/10/25 History insulin glargine 100 unit/mL (3 30 unit subcut QAM 04/15/24 05/10/25 History mL) subcutaneous pen (Lantus Solostar U-100 Insulin) trazodone 150 mg tablet 150 mg PO HS PRN insomnia 04/15/24 05/10/25 History carvedilol 3.125 mg tablet 3.125 mg PO QDAY 05/10/25 05/10/25 History hydromorphone 8 mg tablet 8 mg PO Q6H PRN pain 05/10/25 05/10/25 History insulin regular human 100 unit/mL 1 sliding scale dose subcut ACHS 05/10/25 05/10/25 History (3 mL) subcutaneous pen (Novolin R FlexPen) losartan 50 mg tablet 50 mg PO QDAY 05/10/25 05/10/25 History Allergies Allergy/AdvReac Type Severity Reaction Status Date / Time Sulfa (Sulfonamide Allergy Severe ITCHY Verified 05/09/25 22:07 Antibiotics) tomato Allergy Severe Rash Verified 05/09/25 22:07 Visit Medications Acetaminophen (Acetaminophen 325 Mg Tablet) 650 mg PO Q4HR PRN PRN Reason: PAIN SCALE 1-3 (mild Stop: 06/09/25 04:12 Last Admin: 05/10/25 06:12 Dose: 650 mg Acetaminophen (Acetaminophen Supp 650 Mg Supp) 650 mg ID Q4HR PRN PRN Reason: PAIN SCALE 1-3 (mild Stop: 06/09/25 04:12 Al Hydrox/Mg Hydrox/Simethicone (Mg Hyd/Al Hyd/Jackeline (Maalox Reg) Susp 30 Ml Udc) 30 ml PO Q4HR PRN PRN Reason: Heartburn or Upset Stomach Stop: 06/09/25 04:12 Amiodarone HCl (Amiodarone Hcl 200 Mg Tablet) 200 mg PO QDAY [facility] Stop: 06/09/25 08:59 Last Admin: 05/10/25 09:13 Dose: 200 mg Apixaban (Apixaban 2.5 Mg Tablet) 2.5 mg PO BID [facility] Stop: 06/09/25 08:59 Last Admin: 05/10/25 09:13 Dose: 2.5 mg Dextrose (Dextrose 50%-Water Inj 50 Ml Syringe) 25 ml IV Q15MIN PRN PRN Reason: BG 50-70 responsive npo pt Stop: 06/09/25 04:26 Dextrose (Dextrose 50%-Water Inj 50 Ml Syringe) 50 ml IV Q15MIN PRN PRN Reason: BG <50 OR BG <70 & pt unresponsive Stop: 06/09/25 04:26 Escitalopram Oxalate (Escitalopram Oxalate 10 Mg Tablet) 20 mg PO QDAY [facility] Stop: 06/09/25 08:59 Last Admin: 05/10/25 09:13 Dose: 20 mg Glucagon (Glucagon Inj 1 Mg Vial) 1 mg IM Q15MIN PRN PRN Reason: BG <70, and no IV access Norepinephrine/Dextrose (Levophed In D5w 8mg/250ml) 8 mg in 250 mls @ 11.907 mls/hr IV .Q21H PRN; Protocol PRN Reason: PER PROTOCOL Stop: 06/08/25 22:37 Last Titration: 05/10/25 15:03 Dose: 0.18 mcg/kg/min, 42.865 mls/hr Fentanyl Citrate (Sublimaze Inj 2,500 Mcg/250 Ml Bag) 2,500 mcg in 250 mls @ 2.5 mls/hr IV .Q24H PRN; Protocol PRN Reason: PER PROTOCOL Stop: 05/15/25 04:25 Last Titration: 05/10/25 15:00 Dose: 225 mcg/hr, 22.5 mls/hr Cefepime HCl 2 gm/ Sodium (Chloride) 50 mls @ 100 mls/hr IV QDAY [facility] Stop: 05/17/25 08:59 Last Infusion: 05/10/25 10:23 Dose: Infused Azithromycin 250 mg/ Sterile (Water 2.5 ml/ Sodium Chloride) 252.5 mls @ 252.5 mls/hr IV QDAY [facility] Stop: 05/13/25 08:59 Last Infusion: 05/10/25 10:23 Dose: Infused Sodium Chloride (Ns) 1,000 mls @ 100 mls/hr IV .Q10H [facility] Stop: 05/11/25 01:26 Insulin Degludec (Insulin Degludec 5 Unit/0.05 Ml (Per 5 Units)) 15 unit SC QDAY [facility] Stop: 06/09/25 08:59 Last Admin: 05/10/25 09:12 Dose: 15 unit Insulin Human Lispro (Insulin Lispro (Admelog) 1 Unit/0.01 Ml Unit) 0 unit SC Q6HR [facility]; Protocol Stop: 06/09/25 11:59 Last Admin: 05/10/25 12:17 Dose: 2 unit Levothyroxine Sodium (Levothyroxine Sodium 25 Mcg Tablet) 75 mcg PO ACBR [facility] Stop: 06/09/25 08:59 Last Admin: 05/10/25 09:13 Dose: 75 mcg Magnesium Hydroxide (Milk Of Magnesia Susp 30 Ml Udc) 30 ml PO QDAY PRN PRN Reason: CONSTIPATION Stop: 06/09/25 04:12 Nitroglycerin (Nitroglycerin 0.4 Mg Subl Btl #25) 0.4 mg SL Q5MIN PRN PRN Reason: CHEST PAIN Pantoprazole Sodium (Pantoprazole Inj 40 Mg Vial) 40 mg IVP QDAY [facility] Stop: 06/09/25 10:59 Last Admin: 05/10/25 12:16 Dose: 40 mg Sodium Chloride (Sodium Chloride Rt [place] 0.9% 3 Ml Nebu) 3 ml INH PRN PRN PRN Reason: SOLN Stop: 06/08/25 22:44 Last Admin: 05/09/25 23:39 Dose: 3 ml Discontinued Medications Acetaminophen (Acetaminophen Supp 650 Mg Supp) 650 mg ID X1 ONE Stop: 05/09/25 22:59 Last Admin: 05/09/25 23:11 Dose: 650 mg Albuterol (Albuterol Rt 2.5 Mg/0.5 Ml Nebu) 10 mg INH X1 ONE Stop: 05/09/25 22:46 Last Admin: 05/09/25 23:39 Dose: 10 mg Etomidate (Etomidate Inj 2 Mg/Ml Vial 10 Ml) 30 mg IVP X1 ONE Stop: 05/09/25 22:17 Last Admin: 05/09/25 22:18 Dose: 30 mg Norepinephrine/Dextrose (Levophed In D5w 8mg/250ml) 8 mg in 250 mls @ 11.907 mls/hr IV .Q21H PRN; Protocol PRN Reason: PER PROTOCOL Stop: 06/08/25 22:19 Azithromycin 500 mg/ Sodium (Chloride) 250 mls @ 250 mls/hr IV X1 ONE Stop: 05/09/25 23:44 Last Infusion: 05/10/25 00:20 Dose: Infused Ceftriaxone Sodium/Dextrose (Rocephin/D5w 1gm Iv Premix) 1 gm in 50 mls @ 100 mls/hr IV X1 ONE Stop: 05/09/25 23:14 Last Infusion: 05/09/25 23:43 Dose: Infused Sodium Chloride (Ns) 1,000 mls @ 999 mls/hr IV .Q1H1M ONE Stop: 05/10/25 00:46 Last Infusion: 05/10/25 01:09 Dose: Infused Sodium Chloride (Ns) 1,000 mls @ 999 mls/hr IV .Q1H1M ONE Stop: 05/10/25 00:46 Last Infusion: 05/10/25 01:09 Dose: Infused Lactated Ringer's (Lactated Ringers) 1,000 mls @ 999 mls/hr IV .Q1H1M ONE Stop: 05/10/25 07:55 Last Infusion: 05/10/25 10:49 Dose: Infused Insulin Human Lispro (Insulin Lispro (Admelog) 1 Unit/0.01 Ml Unit) 0 unit SC AC YURY; Protocol Stop: 06/09/25 07:29 Ipratropium [place] (Ipratropium Rt 0.5 Mg/ 2.5 Ml Nebu) 1 mg INH X1 ONE Stop: 05/09/25 22:46 Last Admin: 05/09/25 23:38 Dose: 1 mg Levothyroxine Sodium (Levothyroxine Sodium 88 Mcg Tablet) 75 mcg PO ACBR YURY Stop: 06/09/25 05:59 Last Admin: 05/10/25 09:15 Dose: Not Given Levothyroxine Sodium (Levothyroxine Sodium 25 Mcg Tablet) 75 mcg PO ACBR YURY Stop: 06/10/25 05:59 Midazolam HCl (Midazolam Inj 1 Mg/Ml Vial 2 Ml) 4 mg IVP X1 ONE Stop: 05/10/25 14:43 Last Admin: 05/10/25 14:45 Dose: 4 mg Non-Formulary Medication (Bupropion Hcl) 200 mg PO BID [facility] Stop: 06/09/25 08:59 Non-Formulary Medication (Insulin Glargine [Lantus Solostar U-100 Insulin]) 15 unit SC QAM YURY Stop: 06/09/25 08:59 Rocuronium [place] (Rocuronium Inj 10 Mg/Ml Vial 10 Ml) 100 mg IVP X1 ONE Stop: 05/09/25 22:17 Last Admin: 05/09/25 22:19 Dose: 100 mg Assessment & Plan Plan NEURO Patient is awake, alert, and oriented x3, following commands, conversational. #No active problems DDx: Dx: Rx: RRx: CARDIO #No active problems DDx: Dx: Rx: RRx: PULM #No active problems DDx: Dx: Rx: RRx: GI #No active problems DDx: Dx: Rx: RRx: NEPHRO #No active problems DDx: Dx: Rx: RRx: URO #No active problems DDx: Dx: Rx: RRx: HEME #No active problems DDx: Dx: Rx: RRx: ENDO #No active problems DDx: Dx: Rx: RRx: ID #No active problems DDx: Dx: Rx: RRx: MSK #No active problems DDx: Dx: Rx: RRx: SKIN #No active problems DDx: Dx: Rx: RRx: Disposition: DVT prophylaxis: [...] GI prophylaxis: None Diet: [...] Mena: Present Lines: Peripheral IV, Central IV Antibiotics: [...] CODE STATUS: FULL Patient plan of care was discussed with the attending neighborhood aide, [...] . Javon Butler, PGY-1
[2025-05-10] MEDS: SODIUM CHLORIDE 0.9% 1000 ML 1,000 ML 100 ML IV (15:50)
[2025-05-10] MEDS: Norepinephrine/D5W 8mg/250ml 8 MG/250 ML BAG 42.865 MG IV (16:17)
--- NOTE | 2025-05-10 17:18 | PC.NURSE ---
Dr. Gallo and Dr. Fontanez made aware of no urine output for entire shift. No new orders at this time.
[2025-05-10] MEDS: fentaNYL 2,500 MCG/250 ML BAG 2,500 MCG/250 ML BAG 17.5 MCG IV (19:30)
--- NOTE | 2025-05-10 20:11 | PD.RESPRO ---
Documentation for date of: 05/10/25 Subjective Subjective Interval history: 80 year-old female with PMHx noted for HFpEF, A-fib on Eliquis, bradycardia s/p pacemaker placement in 2022, hypothyroidism,chronic back pain, IDDM II, and hypertension was brought in from home by ambulance for complaints of worsening shortness of breath. No further history obtained from EMS, at the ED patient's BP 75/50 with heart rate of 102 and temp 105.1, labs were pH 7.29 WBC 24, creatinine 2.2, lactate 6, troponin 45, BNP 2800, Pro-Jamshid 23, and TSH of 6. ABG pH 7.29 and pCO2 of 41. CXR showed significant right lobar pneumonia with UA noted for high WBC/RBC/epithelial cells. Head CT was negative for acute findings, patient was intubated, femoral central line along with femoral arterial line were placed in ED. Patient received 3L of LR boluses, received 1 dose of ceftriaxone and azithromycin and was started on Levophed along with dobutamine. Patient will be admitted to ICU for further management and care of septic shock along with acute hypoxic respiratory failure in setting of community-acquired pneumonia. Review of Systems Review of Systems ROS Unobtainable: due to endotracheal tube Past Medical History Surgical History SURGICAL: Positive Hysterectomy Social History SMOKING STATUS: Never smoker SUBSTANCE USE: does not use OCCUPATION: Retired. Single. Past Medical History Comments PMH COMMENT: PMH: Diabetes, HFpEF, A-fib, hypothyroidism, HTN, chronic back pain PSH: Cholecystectomy, 3 back surgeries SH: Does not drink or use illicit drugs. Smoked 1 pack a day for many years , quit 3 months ago. Allergies:?sulfa Medications: amiodarone, amlodipine, eliquis, atorvastatin, bupropion, escitalopram, gabapentin, hydromorphone, Lantus, levothyroxine, Reglan, pioglitazone, trazodone, montelukast. Interval History 05/10/25: Patient was examined at bedside; she is currently intubated and chemically induced on fentanyl drip to maintain RASS score -2 for mechanical ventilation. Current plan is to continue IV NS maintenance @ 100 mL/hr, IV cefepime 2 gm qD (started 05/10 @ 09:00) and IV Zithromax 250 mg qD (started 05/10 @ 09:00) for treatment of her community-acquired pneumonia, follow up on sputum culture to guide antibiotic de-escalation, and continue PO Cordarone 200 mg qD and PO Eliquis 2.5 mg BID (both started 05/10 @ 09:00) for treatment of her atrial fibrillation. Of note, patient's endotracheal tube was somehow dislodged today and required readjustment via bronchoscope to return the tube to its proper position. Will continue to monitor patient as her pneumonia is treated (including the performance of daily awakening trials) with the hope that resolution of the infection will remove her state of septic shock and ongoing acute hypoxic respiratory failure (disposition condition requires successful weaning off of ventilatory support and pressors). Exam Vital Signs Temp Pulse Resp BP Pulse Ox O2 Del Method FiO2 99.0 F 73 30 H 106/45 L 99 Mechanical Ventilation 55 05/10/25 16:01 05/10/25 20:01 05/10/25 06:31 05/10/25 20:01 05/10/25 20:01 05/10/25 16:01 05/10/25 20:00 Narrative Exam General: Intubated. Morbidly obese. HEENT: Normocephalic, atraumatic, previously observed to be anicteric, EOM intact, PERRLA Heart: RRR, no murmur or gallop. Lungs: Clear to auscultation with equal breath sounds bilaterally. Abdomen: Bowel sounds normal. Soft, non-distended abdomen. Extremities: Previously noted to have sensation, circulation, motor function intact and equal in all extremities. Neurologic: Cannot assess. Previously noted to be alert and oriented to name, place and date of , CN II-XII intact, normal DTRs. Objective Labs 05/11/25 05:26 05/11/25 05:26 Labs: Laboratory Results - last 24 hr 05/09/25 05/09/25 05/09/25 23:02 23:08 23:41 WBC 24.2 H RBC 4.47 Hgb 13.5 Hct 41.9 MCV 94 MCH 30.2 MCHC 32.2 RDW Std Deviation 48.8 H Plt Count 225 Neut % (Auto) 79 Lymph % (Auto) 11 [place] % (Auto) 8 Eos % (Auto) 0 Baso % (Auto) 0 Neut # (Auto) 19.2 H Lymph # (Auto) 2.6 [place] # (Auto) 2.0 H Eos # (Auto) 0.0 Baso # (Auto) 0.1 Immature Gran # (Auto) 0.32 H Absolute Nucleated RBC 0.00 Immature Gran % 1 H Nucleated RBC % 0 PT 14.9 H INR 1.4 H Puncture Site Right Radial ABG pH 7.29 L ABG pCO2 41 ABG pO2 133 H ABG HCO3 20 ABG O2 Saturation 97 ABG Base Excess -7 L FiO2 21 Sodium 136 Potassium 3.8 Chloride 99 Carbon Dioxide 22.3 Anion Gap 15 BUN 20 Creatinine 2.2 H Estim Creat Clear Calc 27.4 L eGFR 22 L BUN/Creatinine Ratio 9 L Glucose 322 H Calculated Osmolality 286 Lactic Acid 6.0 H* Calcium 10.1 Corrected Calcium 10.2 H Phosphorus Total Bilirubin 1.4 H AST 24 ALT 14 Alkaline Phosphatase 59 Troponin I 0.545 H* B-Natriuretic Peptide 2753 H* Total Protein 6.6 Albumin 3.9 Globulin 2.7 Albumin/Globulin Ratio 1.4 Procalcitonin 23.41 H TSH 6.10 H Free T4 Ur Collection Type Voided Urine Color [place] A Urine Clarity Turbid A Urine pH 6.5 Ur Specific [place] 1.025 Urine Protein 3+ A Urine Glucose (UA) 4+ A Urine Ketones Trace Urine Blood 2+ A Urine Nitrite Negative Urine Bilirubin Negative Urine Urobilinogen (Auto) Negative Ur Leukocyte Esterase Positive Urine RBC 106 H Urine WBC 4237 H Ur Squamous Epith Cells 24 H Urine Bacteria None Urine Yeast (Budding) Present A Urine Opiates Screen Positive A Urine Fentanyl Screen Negative Ur Barbiturates Screen Negative U Amphetamin/Meth Scrn Negative U Benzodiazepines Scrn Negative U Cocaine Metab Screen Negative U Marijuana (THC) Screen Negative 05/10/25 05/10/25 05/10/25 02:37 04:47 07:18 WBC RBC Hgb Hct MCV MCH MCHC RDW Std Deviation Plt Count Neut % (Auto) Lymph % (Auto) [place] % (Auto) Eos % (Auto) Baso % (Auto) Neut # (Auto) Lymph # (Auto) [place] # (Auto) Eos # (Auto) Baso # (Auto) Immature Gran # (Auto) Absolute Nucleated RBC Immature Gran % Nucleated RBC % PT INR Puncture Site Arterial Line ABG pH 7.25 L ABG pCO2 49 H ABG pO2 95 D ABG HCO3 21 ABG O2 Saturation 95 ABG Base Excess -6 L FiO2 85 Sodium 137 Potassium 4.0 Chloride 104 Carbon Dioxide 21.4 Anion Gap 12 BUN 21 Creatinine 2.4 H Estim Creat Clear Calc 25.1 L eGFR 20 L BUN/Creatinine Ratio 9 L Glucose 274 H Calculated Osmolality 286 Lactic Acid 2.7 H Calcium 9.5 Corrected Calcium 9.7 Phosphorus 4.8 Total Bilirubin AST ALT Alkaline Phosphatase Troponin I 0.640 H* B-Natriuretic Peptide Total Protein Albumin 3.7 Globulin Albumin/Globulin Ratio Procalcitonin TSH Free T4 1.45 Ur Collection Type Urine Color Urine Clarity Urine pH Ur Specific [place] Urine Protein Urine Glucose (UA) Urine Ketones Urine Blood Urine Nitrite Urine Bilirubin Urine Urobilinogen (Auto) Ur Leukocyte Esterase Urine RBC Urine WBC Ur Squamous Epith Cells Urine Bacteria Urine Yeast (Budding) Urine Opiates Screen Urine Fentanyl Screen Ur Barbiturates Screen U Amphetamin/Meth Scrn U Benzodiazepines Scrn U Cocaine Metab Screen U Marijuana (THC) Screen 05/10/25 10:15 WBC RBC Hgb Hct MCV MCH MCHC RDW Std Deviation Plt Count Neut % (Auto) Lymph % (Auto) [place] % (Auto) Eos % (Auto) Baso % (Auto) Neut # (Auto) Lymph # (Auto) [place] # (Auto) Eos # (Auto) Baso # (Auto) Immature Gran # (Auto) Absolute Nucleated RBC Immature Gran % Nucleated RBC % PT INR Puncture Site ABG pH ABG pCO2 ABG pO2 ABG HCO3 ABG O2 Saturation ABG Base Excess FiO2 Sodium Potassium Chloride Carbon Dioxide Anion Gap BUN Creatinine Estim Creat Clear Calc eGFR BUN/Creatinine Ratio Glucose Calculated Osmolality Lactic Acid Calcium Corrected Calcium Phosphorus Total Bilirubin AST ALT Alkaline Phosphatase Troponin I 0.388 H* D B-Natriuretic Peptide Total Protein Albumin Globulin Albumin/Globulin Ratio Procalcitonin TSH Free T4 Ur Collection Type Urine Color Urine Clarity Urine pH Ur Specific [place] Urine Protein Urine Glucose (UA) Urine Ketones Urine Blood Urine Nitrite Urine Bilirubin Urine Urobilinogen (Auto) Ur Leukocyte Esterase Urine RBC Urine WBC Ur Squamous Epith Cells Urine Bacteria Urine Yeast (Budding) Urine Opiates Screen Urine Fentanyl Screen Ur Barbiturates Screen U Amphetamin/Meth Scrn U Benzodiazepines Scrn U Cocaine Metab Screen U Marijuana (THC) Screen ABG Interpretation ABG results: 05/09/25 05/10/25 23:08 07:18 ABG pH 7.29 L 7.25 L ABG pCO2 41 49 H ABG pO2 133 H 95 D ABG HCO3 20 21 ABG O2 Saturation 97 95 ABG Base Excess -7 L -6 L Quality Measures Quality Measures VTE prophylaxis, sepsis Current suspected stage: sepsis Possible source: pulmonary Blood cultures ordered: yes Antibiotic ordered: Yes and none Advance care planning discussed with:: patient Assessment & Plan Assessment Current Active Medications: Generic Name Dose Route Start Last Admin Trade Name Freq PRN Reason Stop Dose Admin Acetaminophen 650 mg 05/10/25 04:13 05/10/25 06:12 Acetaminophen 325 Mg Tablet PO 06/09/25 04:12 650 mg Q4HR PRN Administration PAIN SCALE 1-3 (mild Acetaminophen 650 mg 05/10/25 04:13 Acetaminophen Supp 650 Mg Supp GA 06/09/25 04:12 Q4HR PRN PAIN SCALE 1-3 (mild Al Hydrox/Mg Hydrox/Simethicone 30 ml 05/10/25 04:13 Mg Hyd/Al Hyd/Jackeline (Maalox Reg) Susp 30 Ml Udc PO 06/09/25 04:12 Q4HR PRN Heartburn or Upset Stomach Amiodarone HCl 200 mg 05/10/25 09:00 05/10/25 09:13 Amiodarone Hcl 200 Mg Tablet PO 06/09/25 08:59 200 mg QDAY YURY Administration Apixaban 2.5 mg 05/10/25 09:00 05/10/25 09:13 Apixaban 2.5 Mg Tablet PO 06/09/25 08:59 2.5 mg BID YURY Administration Dextrose 25 ml 05/10/25 04:27 Dextrose 50%-Water Inj 50 Ml Syringe IV 06/09/25 04:26 Q15MIN PRN BG 50-70 responsive npo pt Dextrose 50 ml 05/10/25 04:27 Dextrose 50%-Water Inj 50 Ml Syringe IV 06/09/25 04:26 Q15MIN PRN BG <50 OR BG <70 & pt unresponsive Escitalopram Oxalate 20 mg 05/10/25 09:00 05/10/25 09:13 Escitalopram Oxalate 10 Mg Tablet PO 06/09/25 08:59 20 mg QDAY YURY Administration Glucagon 1 mg 05/10/25 04:27 Glucagon Inj 1 Mg Vial IM Q15MIN PRN BG <70, and no IV access Norepinephrine/Dextrose 8 mg in 250 mls @ 11.907 mls/hr 05/09/25 22:38 05/10/25 20:00 Levophed In D5w 8mg/250ml IV 06/08/25 22:37 0.14 mcg/kg/min .Q21H PRN 33.339 mls/hr PER PROTOCOL Titration Protocol 0.05 MCG/KG/MIN Fentanyl Citrate 2,500 mcg in 250 mls @ 2.5 mls/hr 05/10/25 04:26 05/10/25 20:00 Sublimaze Inj 2,500 Mcg/250 Ml Bag IV 05/15/25 04:25 125 mcg/hr .Q24H PRN 12.5 mls/hr PER PROTOCOL Titration Protocol 25 MCG/HR Cefepime HCl 2 gm/ Sodium 50 mls @ 100 mls/hr 05/10/25 09:00 05/10/25 10:23 Chloride IV 05/17/25 08:59 Infused QDAY YURY Infusion Azithromycin 250 mg/ Sterile 252.5 mls @ 252.5 mls/hr 05/10/25 09:00 05/10/25 10:23 Water 2.5 ml/ Sodium Chloride IV 05/13/25 08:59 Infused QDAY YURY Infusion Sodium Chloride 1,000 mls @ 100 mls/hr 05/10/25 15:27 05/10/25 15:50 Ns IV 05/11/25 01:26 100 mls/hr .Q10H YURY Administration Insulin Degludec 15 unit 05/10/25 09:00 05/10/25 09:12 Insulin Degludec 5 Unit/0.05 Ml (Per 5 Units) SC 06/09/25 08:59 15 unit QDAY YURY Administration Insulin Human Lispro 0 unit 05/10/25 12:00 05/10/25 18:09 Insulin Lispro (Admelog) 1 Unit/0.01 Ml Unit SC 06/09/25 11:59 3 unit Q6HR YURY Administration Protocol Levothyroxine Sodium 75 mcg 05/10/25 09:00 05/10/25 09:13 Levothyroxine Sodium 25 Mcg Tablet PO 06/09/25 08:59 75 mcg ACBR YURY Administration Magnesium Hydroxide 30 ml 05/10/25 04:13 Milk Of Magnesia Susp 30 Ml Udc PO 06/09/25 04:12 QDAY PRN CONSTIPATION Nitroglycerin 0.4 mg 05/10/25 04:13 Nitroglycerin 0.4 Mg Subl Btl #25 SL Q5MIN PRN CHEST PAIN Pantoprazole Sodium 40 mg 05/10/25 11:00 05/10/25 12:16 Pantoprazole Inj 40 Mg Vial IVP 06/09/25 10:59 40 mg QDAY YURY Administration Sodium Chloride 3 ml 05/09/25 22:45 05/09/25 23:39 Sodium Chloride Rt [place] 0.9% 3 Ml Nebu INH 06/08/25 22:44 3 ml PRN PRN Administration SOLN Plan 80 year-old female with PMHx noted for HFpEF, A-fib on Eliquis, bradycardia s/p pacemaker placement in 2022, hypothyroidism,chronic back pain, IDDM II, and hypertension admitted to ICU for further management and care of septic shock along with acute hypoxic respiratory failure in setting of community-acquired pneumonia. She is currently intubated and chemically induced on fentanyl drip to maintain RASS score -2 for mechanical ventilation. Current plan is to continue IV NS maintenance @ 100 mL/hr, IV cefepime 2 gm qD (started 05/10 @ 09:00) and IV Zithromax 250 mg qD (started 05/10 @ 09:00) for treatment of her community-acquired pneumonia, follow up on sputum culture to guide antibiotic de-escalation, and continue PO Cordarone 200 mg qD and PO Eliquis 2.5 mg BID (both started 05/10 @ 09:00) for treatment of her atrial fibrillation. Of note, patient's endotracheal tube was somehow dislodged today and required readjustment via bronchoscope to return the tube to its proper position. Will continue to monitor patient as her pneumonia is treated (including the performance of daily awakening trials) with the hope that resolution of the infection will remove her state of septic shock and ongoing acute hypoxic respiratory failure (disposition condition requires successful weaning off of ventilatory support and pressors). BOX ORDER PERSON: #Acute encephalopathy Chemically induced for mechanical ventilation. Patient started on fentanyl drip to maintain RASS score -2 Daily awakening trials. CVS: #Septic shock 2/2 CAP #HFpEF #NSTEMI likely type II Troponins downtrended to 0.388 on 05/10 @ 10:15, previously 0.640 on 05/10 @04:47 Patient received IVF per sepsis protocol. Patient started on vasopressor support. Maintain MAP>65 Strict I's and O's Repeat echo ordered #Atrial fibrillation Patient noted to be in sinus tachycardia. Continue home PO Cordarone 200 mg qD (started 05/10 @ 09:00) Continue home PO Eliquis 2.5 mg BID (started 05/10 @ 09:00) PULM: #Acute hypoxic respiratory failure #Community-acquired pneumonia Secondary to septic shock and HFpEF Intubated and mechanically ventilated Maintained on O2 saturation> 90% Renal: #KRYSTAL on CKD #Anemia #AGMA #Lactic acidosis Prerenal KRYSTAL in setting of septic shock Patient given IVF per sepsis protocol (currently on 1 L IV NS maintenance fluid @ 100 mL/hr) Avoid nephrotoxic/ renally dose medications Monitor I&O's Follow-up renal panel and repeat ABG Endocrine #IDDM II Patient on 30 units of insulin glargine daily at home along with regular insulin Patient started on 15 units of degludec daily. Patient started on insulin sliding scale #Hx of Hypothyroidism #Subclinical hypothyroidisim Continue Home levothyroxine TSH elevated at 6 with normal FT4 Likely elevated in setting of acute illness Maintain current levothyroxine dose and follow-up outpatient. GI: #Elevated T. bili Insetting of septic shock, continue to trend Heme: #Leukocytosis In setting of septic shock/community-acquired pneumonia ID: Community-acquired pneumonia -IV cefepime 2 gm qD (started 05/10 @ 09:00) -IV Zithromax 250 mg qD (started 05/10 @ 09:00) Follow-up sputum and blood cultures Follow-up CBC De-escalate antibiotic therapy as warranted Skin: No active issues DVT prophylaxis: Apixaban 2.5mg twice daily Diet: N.p.o. Mena: None Lines: PIV, central femoral line, central femoral arterial line CODE STATUS: Full code Patient plan of care was discussed with the attending linseed oil temperer, Dr. Gallo. Javon Butler DO Internal Medicine, PGY-1 Attending Provider Attestation/Addendum Patient seen and examined with above resident, Francisco Javier Butler DO. I agree with the findings, assessment, and plan of care as documented except for any differences below. Patient admitted with septic shock with most likely etiology either pulmonary or urinary tract infection. Patient with previous history of Enterobacter by culture data, appropriately started on cefepime. No need for MRSA coverage at this point. Patient's renal function is lagging behind despite appropriate fluid resuscitation by ED and resident staff this morning. There is no significant pulse pressure variation on arterial line suggesting no volume responsiveness. Patient remains on appropriate pressor with both Levophed and vasopressin can be started as needed. No need for initiation of stress dose steroids at this point. Will continue to hold patient's home medications in anticipation of possible need for dialysis catheter. Will consult nephrology in the interim tomorrow if patient does not have any improvement in urine output. Maintain MAP greater than 65 to allow for renal recovery and avoidance of any nephrotoxic agents. Patient had ET tube that was noted to be high with position of leak. Cough pressure was maintainable however on follow-up chest x-ray showed to have climbed to the level of the thoracic inlet. Using bronchoscope the ET tube was advanced into appropriate position under direct guidance. No family updated at bedside and will discuss with counter caser about next of kin for help with any further decision making does the patient seems to be improving overall. Total critical care time: I personally spent 45 minutes for review of physiologic parameters, directing plan of care throughout the day, and coordination of care with other subspecialists. This is exclusive of time spent teaching housestaff performing separate billable procedures. Patient remains at significant risk for further morbidity and mortality warranting close monitoring and care only available in the ICU. Critical care services required for acute hypoxic respiratory failure, acute metabolic encephalopathy, septic shock/severe sepsis, acute renal failure, urinary tract infection, right upper lobe pneumonia.
[2025-05-10] MEDS: Magnesium Sulfate 4 GM Ivpb 4 GM/50 ML BAG IV (23:06)
[2025-05-10] MEDS: Norepinephrine/D5W 8mg/250ml 8 MG/250 ML BAG 33.339 MG IV (23:51)
[2025-05-11] VITALS (119 sets, daily range): BP systolic 73–151; BP diastolic 0–90; PULSE 65–129; RESP 0–28; TEMP 37.6–37.7; O2SAT 81–100; BMI 39.4
[2025-05-11 04:05] LABS: Base Excess -8 (-3-3); HCO3 19 mEq/L (20-26); Inspired Oxygen, FIO2 45 %; O2 Saturation 92 % (91-98); PCO2 41 mmHg (32.0-48.0); PO2 68 mmHg (83-108); pH, Arterial 7.26 (7.35-7.45)
[2025-05-11 04:07] LABS: Allen Test Not Performed; Puncture Site Arterial Line
[2025-05-11 06:11] LABS: Basophils # (Auto) 0.1 Thou/mm3 (0.0-0.2); Basophils % (Auto) 0 % (0-2.5); Eosinophils # (Auto) 0.0 Thou/mm3 (0.0-0.5); Eosinophils % (Auto) 0 % (0-10); Hematocrit 31.8 % (36.0-46.0); Hemoglobin 10.1 g/dL (12.0-16.0); Immature Granulocytes Auto 0.11 Thou/mm3 (0.00-0.00); Lymphocytes # (Auto) 0.7 Thou/mm3 (1.0-4.8); Lymphocytes % (Auto) 4 % (10-50); Mean Corpuscular HGB Conc 31.8 g/dl (31.0-37.0); Mean Corpuscular Hemoglobin 30.1 pg (25.0-35.0); Mean Corpuscular Volume 95 fL (80-100); Monocytes # (Auto) 0.8 Thou/mm3 (0.0-0.8); Monocytes % (Auto) 4 % (0-12); Neutrophils # (Auto) 18.7 Thou/mm3 (1.8-7.7); Neutrophils % (Auto) 92 % (37-80); Nucleated Red Blood Cell # 0.00 Thou/mm3 (0.00-0.00); Nucleated Red Blood Cell % 0 /100 WBC (0); Platelet Count 122 Thou/mm3 (140-440); RDW Standard Deviation 51.5 fL (36.4-46.3); Red Blood Count 3.36 Miln/mm3 (4.00-5.20); White Blood Count 20.5 Thou/mm3 (3.6-11.0)
[2025-05-11] MEDS: LEVOTHYROXINE SODIUM 25 MCG TABLET 75 MCG PO (06:22)
[2025-05-11 07:12] LABS: Albumin, Serum 3.3 gm/dL (3.4-4.8); Anion Gap 16 (7-16); BUN/Creatinine Ratio 10 Ratio (12-20); Blood Urea Nitrogen 36 mg/dL (9-23); Calcium 8.4 mg/dL (8.3-10.6); Calcium (Corrected) 9.0 mg/dL (8.5-10.1); Carbon Dioxide 19.4 mMol/L (20.0-31.0); Chloride 103 mMol/L (98-107); Creatinine (Component) 3.6 mg/dL (0.6-1.3); Estimated Creatinine Clearance 15.2 mL/min (>60); Glucose 150 mg/dL (74-106); Magnesium 1.8 mg/dL (1.6-2.6); Osmolality,Calculated 286 (275-295); Phosphorous 5.5 mg/dL (2.4-5.1); Potassium 4.1 mMol/L (3.4-5.1); Sodium 138 mMol/L (136-145); eGFR 12 See Note
[2025-05-11] MEDS: fentaNYL 2,500 MCG/250 ML BAG 2,500 MCG/250 ML BAG 22.5 MCG IV (07:22)
--- NOTE | 2025-05-11 08:25 | PD.RESPRO ---
Documentation for date of: 05/11/25 Subjective Subjective Interval history: Interval History 80 year-old female with PMHx noted for HFpEF, A-fib on Eliquis, bradycardia s/p pacemaker placement in 2022, hypothyroidism,chronic back pain, IDDM II, and hypertension was brought in from home by ambulance for complaints of worsening shortness of breath. No further history obtained from EMS, at the ED patient's BP 75/50 with heart rate of 102 and temp 105.1, labs were pH 7.29 WBC 24, creatinine 2.2, lactate 6, troponin 45, BNP 2800, Pro-Jamshid 23, and TSH of 6. ABG pH 7.29 and pCO2 of 41. CXR showed significant right lobar pneumonia with UA noted for high WBC/RBC/epithelial cells. Head CT was negative for acute findings, patient was intubated, femoral central line along with femoral arterial line were placed in ED. Patient received 3L of LR boluses, received 1 dose of ceftriaxone and azithromycin and was started on Levophed along with dobutamine. Patient will be admitted to ICU for further management and care of septic shock along with acute hypoxic respiratory failure in setting of community-acquired pneumonia. 05/10/25: Patient was examined at bedside; she is currently intubated and chemically induced on fentanyl drip to maintain RASS score -2 for mechanical ventilation. Current plan is to continue IV NS maintenance @ 100 mL/hr, IV cefepime 2 gm qD (started 05/10 @ 09:00) and IV Zithromax 250 mg qD (started 05/10 @ 09:00) for treatment of her community-acquired pneumonia, follow up on sputum culture to guide antibiotic de-escalation, and continue PO Cordarone 200 mg qD and PO Eliquis 2.5 mg BID (both started 05/10 @ 09:00) for treatment of her atrial fibrillation. Of note, patient's endotracheal tube was somehow dislodged today and required readjustment via bronchoscope to return the tube to its proper position. Will continue to monitor patient as her pneumonia is treated (including the performance of daily awakening trials) with the hope that resolution of the infection will remove her state of septic shock and ongoing acute hypoxic respiratory failure (disposition condition requires successful weaning off of ventilatory support and pressors). 05/11/2025: Overnight patient was given magnesium sulfate 4 g IV x 1. Ventilator on AC MV, VT 400, RR 20, PEEP 5, FiO2 40%. On fentanyl infusion, RASS -2. Input 2976, output 20 cc, balance +2956 cc. Patient responsive to noxious stimuli but RASS appears closer to -3, will wean sedation. Labs showed NA 138, K4.1, bicarb 19.4, BUN 36, CR 3.6, Phos 5.5. ABG pH 7.26, pCO2 41. Blood and sputum cultures pending, sputum Gram stain grew 4 plus GPC preliminary. Currently on Levophed infusion, titrating as necessary. Today will give 500 cc normal saline IVF bolus for fluid challenge. If urine output does not improve, will consult nephrology for possible urgent hemodialysis. Exam Vital Signs Temp Pulse Resp BP Pulse Ox O2 Del Method FiO2 99.9 F 71 30 H 127/45 L 97 Mechanical Ventilation 45 05/11/25 00:01 05/11/25 06:45 05/10/25 06:31 05/11/25 06:45 05/11/25 06:45 05/11/25 05:00 05/11/25 08:00 Narrative Exam Constitutional Sedated and mechanically ventilated HEENT PERRL. Patent nares. Trachea midline Respiratory Chest normal on inspection and clear auscultation bilaterally, reduced air entry at bases Cardiovascular S1 and S2 audible, RRR. No murmurs carotid bruit. No gross JVD. Abdominal Soft, obese and non tender to palpation in all quadrants. BS +. Left femoral central line and arterial line noted. Exit site clean Genitourinary No bladder tenderness, no flank pain. Normal to palpation Musculoskeletal Extremities tone within normal limits. No LE edema. Neurological Sedated on mechanically ventilated Skin Warm, dry and intact. No apparent lesions. Psychiatric Sedated and mechanically ventilated Objective Labs 05/11/25 05:26 05/11/25 05:26 Labs: Laboratory Results - last 24 hr 05/10/25 05/11/25 05/11/25 10:15 03:56 05:26 WBC 20.5 H RBC 3.36 L Hgb 10.1 L D Hct 31.8 L D MCV 95 MCH 30.1 MCHC 31.8 RDW Std Deviation 51.5 H Plt Count 122 L D Neut % (Auto) 92 H Lymph % (Auto) 4 L [place] % (Auto) 4 Eos % (Auto) 0 Baso % (Auto) 0 Neut # (Auto) 18.7 H Lymph # (Auto) 0.7 L [place] # (Auto) 0.8 Eos # (Auto) 0.0 Baso # (Auto) 0.1 Immature Gran # (Auto) 0.11 H Absolute Nucleated RBC 0.00 Immature Gran % 1 H Nucleated RBC % 0 Puncture Site Arterial Line ABG pH 7.26 L ABG pCO2 41 ABG pO2 68 L D ABG HCO3 19 L ABG O2 Saturation 92 ABG Base Excess -8 L FiO2 45 Sodium 138 Potassium 4.1 Chloride 103 Carbon Dioxide 19.4 L Anion Gap 16 BUN 36 H Creatinine 3.6 H D Estim Creat Clear Calc 15.2 L eGFR 12 L* BUN/Creatinine Ratio 10 L Glucose 150 H D Calculated Osmolality 286 Calcium 8.4 Corrected Calcium 9.0 Phosphorus 5.5 H Magnesium 1.8 Troponin I 0.388 H* D Albumin 3.3 L ABG Interpretation ABG results: 05/09/25 05/10/25 05/11/25 23:08 07:18 03:56 ABG pH 7.29 L 7.25 L 7.26 L ABG pCO2 41 49 H 41 ABG pO2 133 H 95 D 68 L D ABG HCO3 20 21 19 L ABG O2 Saturation 97 95 92 ABG Base Excess -7 L -6 L -8 L Quality Measures Quality Measures VTE prophylaxis, sepsis Current suspected stage: septic shock (LA >4 and/or hypotension) Sepsis reassessment completed at (date): 05/11/25 Sepsis reassessment completed at (time): 10:59 Possible source: pulmonary Blood cultures ordered: yes Antibiotic ordered: Yes and none Advance care planning discussed with:: other Assessment & Plan Assessment Current Active Medications: Generic Name Dose Route Start Last Admin Trade Name Freq PRN Reason Stop Dose Admin Acetaminophen 650 mg 05/10/25 04:13 05/10/25 21:34 Acetaminophen 325 Mg Tablet PO 06/09/25 04:12 650 mg Q4HR PRN Administration PAIN SCALE 1-3 (mild Acetaminophen 650 mg 05/10/25 04:13 Acetaminophen Supp 650 Mg Supp NM 06/09/25 04:12 Q4HR PRN PAIN SCALE 1-3 (mild Al Hydrox/Mg Hydrox/Simethicone 30 ml 05/10/25 04:13 Mg Hyd/Al Hyd/Jackeline (Maalox Reg) Susp 30 Ml Udc PO 06/09/25 04:12 Q4HR PRN Heartburn or Upset Stomach Amiodarone HCl 200 mg 05/10/25 09:00 05/10/25 09:13 Amiodarone Hcl 200 Mg Tablet PO 06/09/25 08:59 200 mg QDAY YURY Administration Apixaban 2.5 mg 05/10/25 09:00 05/10/25 20:14 Apixaban 2.5 Mg Tablet PO 06/09/25 08:59 2.5 mg On Hold: 05/11/25 08:01 BID YURY Administration Dextrose 25 ml 05/10/25 04:27 Dextrose 50%-Water Inj 50 Ml Syringe IV 06/09/25 04:26 Q15MIN PRN BG 50-70 responsive npo pt Dextrose 50 ml 05/10/25 04:27 Dextrose 50%-Water Inj 50 Ml Syringe IV 06/09/25 04:26 Q15MIN PRN BG <50 OR BG <70 & pt unresponsive Escitalopram Oxalate 20 mg 05/10/25 09:00 05/10/25 09:13 Escitalopram Oxalate 10 Mg Tablet PO 06/09/25 08:59 20 mg QDAY YURY Administration Glucagon 1 mg 05/10/25 04:27 Glucagon Inj 1 Mg Vial IM Q15MIN PRN BG <70, and no IV access Norepinephrine/Dextrose 8 mg in 250 mls @ 11.907 mls/hr 05/09/25 22:38 05/11/25 07:00 Levophed In D5w 8mg/250ml IV 06/08/25 22:37 0.1 mcg/kg/min .Q21H PRN 23.814 mls/hr PER PROTOCOL Titration Protocol 0.05 MCG/KG/MIN Fentanyl Citrate 2,500 mcg in 250 mls @ 2.5 mls/hr 05/10/25 04:26 05/11/25 07:45 Sublimaze Inj 2,500 Mcg/250 Ml Bag IV 05/15/25 04:25 275 mcg/hr .Q24H PRN 27.5 mls/hr PER PROTOCOL Titration Protocol 25 MCG/HR Cefepime HCl 2 gm/ Sodium 50 mls @ 100 mls/hr 05/10/25 09:00 05/10/25 10:23 Chloride IV 05/17/25 08:59 Infused QDAY YURY Infusion Azithromycin 250 mg/ Sterile 252.5 mls @ 252.5 mls/hr 05/10/25 09:00 05/10/25 10:23 Water 2.5 ml/ Sodium Chloride IV 05/13/25 08:59 Infused QDAY YURY Infusion Insulin Degludec 15 unit 05/10/25 09:00 05/10/25 09:12 Insulin Degludec 5 Unit/0.05 Ml (Per 5 Units) SC 06/09/25 08:59 15 unit QDAY YURY Administration Insulin Human Lispro 0 unit 05/10/25 12:00 05/11/25 06:11 Insulin Lispro (Admelog) 1 Unit/0.01 Ml Unit SC 06/09/25 11:59 Not Given Q6HR YURY Protocol Levothyroxine Sodium 75 mcg 05/10/25 09:00 05/11/25 06:22 Levothyroxine Sodium 25 Mcg Tablet PO 06/09/25 08:59 75 mcg ACBR YURY Administration Magnesium Hydroxide 30 ml 05/10/25 04:13 Milk Of Magnesia Susp 30 Ml Udc PO 06/09/25 04:12 QDAY PRN CONSTIPATION Nitroglycerin 0.4 mg 05/10/25 04:13 Nitroglycerin 0.4 Mg Subl Btl #25 SL Q5MIN PRN CHEST PAIN Pantoprazole Sodium 40 mg 05/10/25 11:00 05/10/25 12:16 Pantoprazole Inj 40 Mg Vial IVP 06/09/25 10:59 40 mg QDAY YURY Administration Sodium Chloride 3 ml 05/09/25 22:45 05/09/25 23:39 Sodium Chloride Rt [place] 0.9% 3 Ml Nebu INH 06/08/25 22:44 3 ml PRN PRN Administration SOLN Plan 80 year-old female with PMHx noted for HFpEF, A-fib on Eliquis, bradycardia s/p pacemaker placement in 2022, hypothyroidism,chronic back pain, IDDM II, and hypertension admitted to ICU for further management and care of septic shock along with acute hypoxic respiratory failure in setting of community-acquired pneumonia. She is currently intubated and chemically induced on fentanyl drip to maintain RASS score -2 for mechanical ventilation. Current plan is to continue IV NS maintenance @ 100 mL/hr, IV cefepime 2 gm qD (started 05/10 @ 09:00) and IV Zithromax 250 mg qD (started 05/10 09:00) for treatment of her community-acquired pneumonia, follow up on sputum culture to guide antibiotic de-escalation, and continue PO Cordarone 200 mg qD and PO Eliquis 2.5 mg BID (both started 05/10 @ 09:00) for treatment of her atrial fibrillation. Of note, patient's endotracheal tube was somehow dislodged today and required readjustment via bronchoscope to return the tube to its proper position. Will continue to monitor patient as her pneumonia is treated (including the performance of daily awakening trials) with the hope that resolution of the infection will remove her state of septic shock and ongoing acute hypoxic respiratory failure (disposition condition requires successful weaning off of ventilatory support and pressors). LIBRARY DIRECTOR: #Acute metablic encephalopathy #Chemical sedation Patient started on fentanyl drip to maintain RASS score -2 Daily awakening trials. CVS: #Septic shock 2/2 CAP #HFpEF #NSTEMI likely type II Troponins downtrended to 0.388 on 05/10 @ 10:15, previously 0.640 on 05/10 @04:47 Patient received IVF per sepsis protocol. Patient started on vasopressor support with Levophed Maintain MAP>65 Strict I's and O's Repeat echo ordered #Atrial fibrillation Patient noted to be in sinus tachycardia. Continue home PO Cordarone 200 mg qD (started 05/10 @ 09:00) Eliquis held in anticipation for possible temporary dialysis catheter placement PULM: #Acute hypoxic respiratory failure secondary to community-acquired pneumonia Secondary to septic shock and HFpEF Intubated and mechanically ventilated Maintained on O2 saturation> 90% Renal: #KRYSTAL on CKD # Hyperphosphatemia #AGMA #Lactic acidosis?resolving DDx:Prerenal KRYSTAL in setting of septic shock Patient given IVF per sepsis protocol Rx: Avoid nephrotoxic agents. 500 cc normal saline IVF bolus RRx: follow-up renal panel and monitor urine output. If urine output still decreased, will consult nephrology Endocrine #IDDM II Patient on 30 units of insulin glargine daily at home along with regular insulin Rx: Continue 15 units of degludec daily. Continue insulin sliding scale #Hx of Hypothyroidism #Subclinical hypothyroidisim Continue Home levothyroxine TSH elevated at 6 with normal FT4 Likely elevated in setting of acute illness Maintain current levothyroxine dose and follow-up outpatient. GI: #Elevated T. bili Insetting of septic shock, continue to trend Heme: #Leukocytosis?resolving In setting of septic shock/community-acquired pneumonia Dx: WBC 24.2 ? > 20.5 Rx: Monitor CBC ID: Community-acquired pneumonia Dx: Pending blood and sputum cultures. Sputum Gram stain grew 4+ GPC preliminary Rx:-IV cefepime 2 gm qD (started 05/10 @ 09:00) -IV Zithromax 250 mg qD (started 05/10 @ 09:00) Skin: No active issues ICU Health maintenance: Dispo: Mechanical ventillation, IV antibiotics, Levophed Diet: NPO DVT ppx: SCDs GI ppx: Protonix 40mg qD Mechanical ventilattion: Yes, Mode: ACMV , VT 400, R 20, FiO2 40% Sedation: Yes, Fentanyl (RAAS - 2) IV lines: 2 pIV Central line: Yes [Left femoral on 05/10 Arterial line: Yes [ Left femoral on 05/10 Mena: Yes (started 05/10 - Code status: FULL CODE Plan of care discussed with Attending Dr. Sabino Eason MD PGY 2 Disclaimer: This note was dictated by speech recognition. Minor errors in field research assistant may be present due to voice recognition software. Attending Provider Attestation/Addendum Patient seen and examined with the above resident, Jaren Eason MD. I agree with the findings, assessment, and plan of care as documented separately differences below. Patient shows continued improvement with antibiotic treatment of infectious etiology of septic shock. Patient with most likely urinary tract infection that precipitated acute encephalopathy and aspiration pneumonia. Probably being held for pulmonary infection at the same time though pulmonary complaint seems to be doing well with plateau pressure only 21 cmH2O on current vent settings. These remain unchanged since yesterday. pH remains in appropriate range with compensation for metabolic acidosis. Patient continues to have no urine output overnight, will challenge with large-volume fluid but if this does not show any improvement throughout the day, I suspect the need for Vas-Cath placement for hemodialysis at least in the short-term. We will coordinate this with nephrology's assistance. Due to the patient's requirement for vasopressors, will plan for continuous renal replacement therapy with Tablo. Patient's pressor requirements however have improved and she remains on low-dose Levophed alone. No need for stress dose steroids at this point. Patient will remain on cefepime given previous growth of Enterobacter from the urinary tract with multiple drug resistance. Patient likely will be able to transition over to p.o. Levaquin once she is extubated and doing well. Will plan for a spontaneous awake trial today to assess underlying neurologic status and order appropriate testing should we find focal deficit. Follow-up on cultures to help further delineate long-term plan of antibiotic regiment. Total critical care time: I personally spent 40 minutes for review of physiologic parameters, directing plan of care throughout today, and coordination of care with other subspecialties. This is exclusive of time spent teaching of staff performing separate billable procedures. Patient remains at significant risk for further morbidity and mortality warranting close monitoring and care only available in the ICU. Critical care services required for acute hypoxic respiratory failure, acute metabolic encephalopathy, acute renal failure, urinary tract infection, right upper lobe pneumonia.
[2025-05-11] MEDS: Norepinephrine/D5W 8mg/250ml 8 MG/250 ML BAG 23.814 MG IV ×2 (09:13→20:00)
[2025-05-11] MEDS: AMIODARONE HCL 200 MG TABLET PO (09:43)
[2025-05-11] MEDS: AZITHROMYCIN INJ 250 MG, Sterile Water 2.5 ML in SODIUM CHLORIDE 0.9% 250 ML 250 ML 252 MG IV (09:43)
[2025-05-11] MEDS: ESCITALOPRAM OXALATE 10 MG TABLET 20 MG PO (09:44)
[2025-05-11] MEDS: CEFEPIME INJ 2 GM in SODIUM CHLORIDE 0.9% (Popper) 50 ML IV (09:44)
[2025-05-11] MEDS: INSULIN DEGLUDEC 5 UNIT/0.05 ML (PER 5 UNITS) 15 UNIT SC (09:48)
[2025-05-11] MEDS: SODIUM CHLORIDE 0.9% 500 ML 500 ML 250 ML IV (10:05)
--- NOTE | 2025-05-11 10:31 | PC.SS ---
Patient is currently in ICU on vent support. SS verified medical decision maker and spoke to Idalia Woodall, granddaughter of patient. Granddaughter states her mother, Brooke Mccullough, will be the medical decision maker. Patient does not have an advanced directive. SS spoke to daughter, Brooke, who states they are both in agreement with her making medical decisions. Patient has a control clerk auditing, Daja, who resides with her. Family states Daja is now agreeable to this. Patient is from home and has been residing with her control clerk auditing, Daja for about 15 years now. Daughter states patient baseline is bedridden and she has a hospital bed, hugo lift, wheelchair and 02 at home. Patient takes dial a ride for transportation to appointments. Patient does not have [employer]. Daughter states patient receives social security and a pension plan. Daughter states no hx of alcohol or drugs but states patient has a long history with depression. PCP: Dr. Sandeep Sandoval. Medical decision maker: Brooke Mccullough, daughter,
[2025-05-11] MEDS: MIDAZOLAM INJ 1 MG/ML VIAL 2 ML 2 MG IVP ×2 (12:12→17:08)
--- NOTE | 2025-05-11 12:12 | XR_ITS ---
Examination: Arterial duplex lower extremity, unilateral, right Date and time of exam: May 11, 2025, 1535 hrs. Indications: Reduced pulses in the right leg, redness swelling and pain this week Findings: Duplex sonographic imaging of the lower extremity arteries using B-mode/Davey scale imaging and Doppler spectral analysis and color flow. Right common femoral artery demonstrates monophasic flow. Right superficial femoral artery demonstrates monophasic flow. Right popliteal artery demonstrates monophasic flow. Right posterior tibial artery demonstrated no flow. Impression: Severe right leg peripheral obstructive arterial disease.
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
[2025-05-11 14:53] LABS: Albumin, Serum 3.2 gm/dL (3.4-4.8); Anion Gap 13 (7-16); BUN/Creatinine Ratio 10 Ratio (12-20); Blood Urea Nitrogen 40 mg/dL (9-23); Calcium 8.0 mg/dL (8.3-10.6); Calcium (Corrected) 8.6 mg/dL (8.5-10.1); Carbon Dioxide 21.2 mMol/L (20.0-31.0); Chloride 103 mMol/L (98-107); Creatinine (Component) 4.0 mg/dL (0.6-1.3); Estimated Creatinine Clearance 13.7 mL/min (>60); Glucose 164 mg/dL (74-106); Osmolality,Calculated 287 (275-295); Phosphorous 5.1 mg/dL (2.4-5.1); Potassium 4.0 mMol/L (3.4-5.1); Sodium 137 mMol/L (136-145); eGFR 11 See Note
[2025-05-11] MEDS: RINGERS LACTATED 1000 ML 1,000 ML 999 ML IV (17:03)
--- NOTE | 2025-05-11 17:31 | PD.NEPHCONS ---
Documented by User: Lisa Harvey MD 05/12/25 19:57 History of Present Illness Data of Consult Consult date: 05/11/25 Requesting Physician: José Luis Gallo MD Primary Care Provider: Lang Sandoval MD Consult Narrative Reason for consult: KRYSTAL, septic shock cc:: cc: José Luis Gallo MD Review of Systems Review of Systems Narrative Review of Systems: ROS is unobtainable at this moment as patient is on ventilator Past Medical History Past Medical History CARDIAC: Positive Cardiac Disorders, Atrial Fibrillation and Hypertension; Negative Congestive Heart Failure RESPIRATORY: Positive Asthma; Negative Chronic Obstructive Pulmonary Disease (COPD) GASTROINTESTINAL: Positive Gastroesophageal Reflux Disease GENITOURINARY: Negative Renal Disease MUSCULOSKELETAL: Positive Degenerative Disk Disease ENDOCRINE: Positive Diabetes Mellitus Type 2 and Hypothyroidism; Negative Diabetes Mellitus Type 1 HEMATOLOGIC: Negative Sickle Cell Disease PSYCHO/SOCIAL: Positive Bipolar Disorder, Depression and Anxiety OTHER HISTORY: Positive Blood Transfusions Surgical History SURGICAL: Positive Abdominal Surgery and Hysterectomy Social History SMOKING STATUS: Never smoker SUBSTANCE USE: does not use OCCUPATION: Retired. Single. Past Medical History Comments PMH COMMENT: PMH: PSH: Medications: Allergies: FH: SH: Meds Home Medications and Allergies Home Medications ?Medication ?Instructions ?Recorded ?Confirmed ?Type metoclopramide HCl 10 mg tablet 10 mg PO BID 02/28/18 05/10/25 History levothyroxine 75 mcg tablet 75 mcg PO QDAY 02/14/23 05/10/25 History amiodarone 200 mg tablet 200 mg PO QDAY 04/10/23 05/10/25 History bupropion HCl 200 mg tablet,12 hr 200 mg PO BID 04/10/23 05/10/25 History sustained-release escitalopram oxalate 20 mg tablet 20 mg PO QDAY 04/10/23 05/10/25 History apixaban 2.5 mg tablet (Eliquis) 2.5 mg PO BID 11/06/23 05/10/25 History pioglitazone 15 mg tablet (Actos) 15 mg PO QDAY 11/06/23 05/10/25 History atorvastatin 10 mg tablet 10 mg PO QDAY 04/15/24 05/10/25 History insulin glargine 100 unit/mL (3 30 unit subcut QAM 04/15/24 05/10/25 History mL) subcutaneous pen (Lantus Solostar U-100 Insulin) trazodone 150 mg tablet 150 mg PO HS PRN insomnia 04/15/24 05/10/25 History carvedilol 3.125 mg tablet 3.125 mg PO QDAY 05/10/25 05/10/25 History hydromorphone 8 mg tablet 8 mg PO Q6H PRN pain 05/10/25 05/10/25 History insulin regular human 100 unit/mL 1 sliding scale dose subcut ACHS 05/10/25 05/10/25 History (3 mL) subcutaneous pen (Novolin R FlexPen) losartan 50 mg tablet 50 mg PO QDAY 05/10/25 05/10/25 History Allergies Allergy/AdvReac Type Severity Reaction Status Date / Time Sulfa (Sulfonamide Allergy Severe ITCHY Verified 05/09/25 22:07 Antibiotics) tomato Allergy Severe Rash Verified 05/09/25 22:07 Exam Vital Signs Temp Pulse Resp BP Pulse Ox O2 Del Method FiO2 37.4 C 85 30 H 105/65 92 L Mechanical Ventilation 35 05/12/25 04:00 05/12/25 07:15 05/10/25 06:31 05/12/25 07:15 05/12/25 07:15 05/11/25 12:00 05/12/25 06:08 Narrative Exam General: Intubated. Eye: normal conjunctiva, no scleral icterus HENT: Normocephalic, atraumatic, moist oral mucosa Neck: Supple, non-tender, no JVD, no lymphadenopathy Lungs: Non-labored respirations, symmetric chest rise, Clear to auscultate bilaterally, No wheezing, rhonchi, crackles Heart: Peripheral pulses intact bilaterally, Regular Rate and Rhythm, No pitting edema of bilateral LEs. Abdomen: Soft, non-tender, non-distended, no palpable masses Musculoskeletal: in bed Skin: Skin is warm, dry, no rashes or lesions. Neuro: intubated, sedated Results Labs 05/12/25 04:40 05/12/25 04:40 Labs: Short CBC 05/12/25 Range/Units 04:40 WBC 15.9 H (3.6-11.0) Thou/mm3 Hgb 9.7 L (12.0-16.0) g/dL Hct 31.3 L (36.0-46.0) % Plt Count 97 L D (140-440) Thou/mm3 BMP 05/11/25 05/12/25 13:57 04:40 Sodium 137 137 Potassium 4.0 4.0 Chloride 103 103 Carbon Dioxide 21.2 21.1 BUN 40 H 46 H Creatinine 4.0 H 4.5 H* D Glucose 164 H 162 H Calcium 8.0 L 8.0 L Liver Function 05/11/25 05/12/25 Range/Units 13:57 04:40 Albumin 3.2 L 3.1 L (3.4-4.8) gm/dL ABG Interpretation ABG results: 05/09/25 05/10/25 05/11/25 23:08 07:18 03:56 ABG pH 7.29 L 7.25 L 7.26 L ABG pCO2 41 49 H 41 ABG pO2 133 H 95 D 68 L D ABG HCO3 20 21 19 L ABG O2 Saturation 97 95 92 ABG Base Excess -7 L -6 L -8 L 05/12/25 04:09 ABG pH 7.23 L ABG pCO2 44 ABG pO2 78 L ABG HCO3 19 L ABG O2 Saturation 94 ABG Base Excess -8 L Assessment & Plan Additional Assessment & Plan Additional Plan: Patient is 80y/o F with PMH of HFpEF, A-fib on Eliquis, bradycardia s/p pacemaker placement in 2022, hypothyroidism,chronic back pain, IDDM II, and hypertension presented to the hospital due to worsening shortness of breathe. Per ICU note, no further history was obtained from the patient from EMS. Patient has been admitted to ICU for management of septic shock and acute hypoxic respiratory failure with community acquired pneumonia. Patient has been consulted to nephrology for management of KRYSTAL on CKD and possibility of hemodialysis. #KRYSTAL-most likely related to ATN- underlying shock #Anemia #AGMA #Lactic acidosis -Upon admission, BUN: 20, Cr:2.2 (Baseline 1.3), eGFR: 22 -Likely prerenal 2/2 sepsis, -Patient has minimal edema, lungs clear, mucus membranes moist. -CXR (05/10/2025): Severe pneumonia right lung pneumonia noted -Currently, BP: 84/66 Cr: 4.5, BUN:46, eGFR:9, pH: 7.23. Plan: will hold HD today, reeval in am after IVF are given. -Avoid nephrotoxins -Renally dose medication #Acute encephalopathy #Septic shock 2/2 CAP #HFpEF #NSTEMI likely type II #Atrial fibrillation #IDDM II #Hx of Hypothyroidism #Subclinical hypothyroidisim #Elevated T. bili #Leukocytosis #Community-acquired pneumonia - Management per ICU team Thank you Sabino for allowing me to participate in the care of Ms. Calderón Documented by User: Samy Melton DO 05/12/25 13:03 History of Present Illness Consult Narrative History of present illness: History of Presenting Illness: Patient is 80y/o F with PMH of HFpEF, A-fib on Eliquis, bradycardia s/p pacemaker placement in 2022, hypothyroidism,chronic back pain, IDDM II, and hypertension presented to the hospital due to worsening shortness of breathe. Per ICU note, no further history was obtained from the patient from EMS. Patient has been admitted to ICU for management of septic shock and acute hypoxic respiratory failure with community acquired pneumonia. Patient has been consulted to nephrology for management of KRYSTAL on CKD and possibility of hemodialysis. ED course: No further history obtained from EMS, at the ED patient's BP 75/50 with heart rate of 102 and temp 105.1, labs were pH 7.29 WBC 24, creatinine 2.2, lactate 6, troponin 45, BNP 2800, Pro-Jamshid 23, and TSH of 6. ABG pH 7.29 and pCO2 of 41. CXR showed significant right lobar pneumonia with UA noted for high WBC/RBC/epithelial cells. Head CT was negative for acute findings, patient was intubated, femoral central line along with femoral arterial line were placed in ED. Patient received 3L of LR boluses, received 1 dose of ceftriaxone and azithromycin and was started on Levophed along with dobutamine. PMH: Diabetes, HFpEF, A-fib, hypothyroidism, HTN, chronic back pain PSH: Cholecystectomy, 3 back surgeries SH: Does not drink or use illicit drugs. Smoked 1 pack a day for many years , quit 3 months ago. Allergies:?sulfa Medications: amiodarone, amlodipine, eliquis, atorvastatin, bupropion, escitalopram, gabapentin, hydromorphone, Lantus, levothyroxine, Reglan, pioglitazone, trazodone, montelukast. 05/11/2025: Patient unarousable and minimally interactive. BP: 108/58 Cr: 3.6, eGFR: 12, BUN:36 pH: 7.26, Urine Output: 20ml. Continue to monitor Urine output. If no improvement, then likely hemodialysis tomorrow. Review of Systems Review of Systems Narrative Review of Systems: ROS is unobtainable at this moment as patient is unawake. Meds Home Medications and Allergies Home Medications ?Medication ?Instructions ?Recorded ?Confirmed ?Type metoclopramide HCl 10 mg tablet 10 mg PO BID 02/28/18 05/10/25 History levothyroxine 75 mcg tablet 75 mcg PO QDAY 02/14/23 05/10/25 History amiodarone 200 mg tablet 200 mg PO QDAY 04/10/23 05/10/25 History bupropion HCl 200 mg tablet,12 hr 200 mg PO BID 04/10/23 05/10/25 History sustained-release escitalopram oxalate 20 mg tablet 20 mg PO QDAY 04/10/23 05/10/25 History apixaban 2.5 mg tablet (Eliquis) 2.5 mg PO BID 11/06/23 05/10/25 History pioglitazone 15 mg tablet (Actos) 15 mg PO QDAY 11/06/23 05/10/25 History atorvastatin 10 mg tablet 10 mg PO QDAY 04/15/24 05/10/25 History insulin glargine 100 unit/mL (3 30 unit subcut QAM 04/15/24 05/10/25 History mL) subcutaneous pen (Lantus Solostar U-100 Insulin) trazodone 150 mg tablet 150 mg PO HS PRN insomnia 04/15/24 05/10/25 History carvedilol 3.125 mg tablet 3.125 mg PO QDAY 05/10/25 05/10/25 History hydromorphone 8 mg tablet 8 mg PO Q6H PRN pain 05/10/25 05/10/25 History insulin regular human 100 unit/mL 1 sliding scale dose subcut ACHS 05/10/25 05/10/25 History (3 mL) subcutaneous pen (Novolin R FlexPen) losartan 50 mg tablet 50 mg PO QDAY 05/10/25 05/10/25 History Allergies Allergy/AdvReac Type Severity Reaction Status Date / Time Sulfa (Sulfonamide Allergy Severe ITCHY Verified 05/09/25 22:07 Antibiotics) tomato Allergy Severe Rash Verified 05/09/25 22:07 Exam Narrative Exam General: Intubated. Unresponsive Eye: normal conjunctiva, no scleral icterus HENT: Normocephalic, atraumatic, moist oral mucosa Neck: Supple, non-tender, no JVD, no lymphadenopathy Lungs: Non-labored respirations, symmetric chest rise, Clear to auscultate bilaterally, No wheezing, rhonchi, crackles Heart: Peripheral pulses intact bilaterally, Regular Rate and Rhythm, No pitting edema of bilateral LEs. Abdomen: Soft, non-tender, non-distended, no palpable masses Musculoskeletal: No cyanosis or edema, No visible joint swelling Skin: Skin is warm, dry, no rashes or lesions. Neuro: Cranial nerves II-XII grossly intact. Results Labs 05/12/25 04:40 05/12/25 04:40
[2025-05-11] MEDS: fentaNYL 2,500 MCG/250 ML BAG 2,500 MCG/250 ML BAG 25 MCG IV (17:48)
[2025-05-11] MEDS: DEXMEDETOMIDINE 400 MCG IVPB 400 MCG/100 ML BAG 5.37 MCG IV (17:49)
[2025-05-11] MEDS: INSULIN LISPRO (AdmeLOG) 1 UNIT/0.01 ML UNIT SC (17:54)
[2025-05-12] VITALS (111 sets, daily range): BP systolic 60–166; BP diastolic 35–125; PULSE 71–109; RESP 14–31; TEMP 36.3–37.8; O2SAT 89–100; BMI 41.8
[2025-05-12] MEDS: DEXMEDETOMIDINE 400 MCG IVPB 400 MCG/100 ML BAG 10.74 MCG IV (04:00)
[2025-05-12 04:17] LABS: Base Excess -8 (-3-3); HCO3 19 mEq/L (20-26); Inspired Oxygen, FIO2 35 %; O2 Saturation 94 % (91-98); PCO2 44 mmHg (32.0-48.0); PO2 78 mmHg (83-108); pH, Arterial 7.23 (7.35-7.45)
[2025-05-12 04:18] LABS: Allen Test Not Performed; Puncture Site Arterial Line
[2025-05-12] MEDS: fentaNYL 2,500 MCG/250 ML BAG 2,500 MCG/250 ML BAG 25 MCG IV (04:30)
[2025-05-12] MEDS: INSULIN LISPRO (AdmeLOG) 1 UNIT/0.01 ML UNIT SC (05:22)
[2025-05-12] MEDS: LEVOTHYROXINE SODIUM 25 MCG TABLET 75 MCG PO (05:23)
[2025-05-12 05:39] LABS: Basophils # (Auto) 0.0 Thou/mm3 (0.0-0.2); Basophils % (Auto) 0 % (0-2.5); Eosinophils # (Auto) 0.0 Thou/mm3 (0.0-0.5); Eosinophils % (Auto) 0 % (0-10); Hematocrit 31.3 % (36.0-46.0); Hemoglobin 9.7 g/dL (12.0-16.0); Immature Granulocytes Auto 0.16 Thou/mm3 (0.00-0.00); Lymphocytes # (Auto) 1.1 Thou/mm3 (1.0-4.8); Lymphocytes % (Auto) 7 % (10-50); Mean Corpuscular HGB Conc 31.0 g/dl (31.0-37.0); Mean Corpuscular Hemoglobin 29.7 pg (25.0-35.0); Mean Corpuscular Volume 96 fL (80-100); Monocytes # (Auto) 0.7 Thou/mm3 (0.0-0.8); Monocytes % (Auto) 5 % (0-12); Neutrophils # (Auto) 13.8 Thou/mm3 (1.8-7.7); Neutrophils % (Auto) 87 % (37-80); Nucleated Red Blood Cell # 0.00 Thou/mm3 (0.00-0.00); Nucleated Red Blood Cell % 0 /100 WBC (0); Platelet Count 97 Thou/mm3 (140-440); RDW Standard Deviation 52.6 fL (36.4-46.3); Red Blood Count 3.27 Miln/mm3 (4.00-5.20); White Blood Count 15.9 Thou/mm3 (3.6-11.0)
[2025-05-12 06:08] LABS: Albumin, Serum 3.1 gm/dL (3.4-4.8); Anion Gap 13 (7-16); BUN/Creatinine Ratio 10 Ratio (12-20); Blood Urea Nitrogen 46 mg/dL (9-23); Calcium 8.0 mg/dL (8.3-10.6); Calcium (Corrected) 8.7 mg/dL (8.5-10.1); Carbon Dioxide 21.1 mMol/L (20.0-31.0); Cardiac Risk Estimate 8.2 RATIO (3.7-5.6); Chloride 103 mMol/L (98-107); Cholesterol 98 mg/dL (132-200); Creatinine (Component) 4.5 mg/dL (0.6-1.3); Estimated Creatinine Clearance 12.5 mL/min (>60); Glucose 162 mg/dL (74-106); HDL Cholesterol 12 mg/dL (40-60); LDL Cholesterol,Calculated 46 mg/dL (0-130); Magnesium 1.8 mg/dL (1.6-2.6); Osmolality,Calculated 289 (275-295); Phosphorous 5.0 mg/dL (2.4-5.1); Potassium 4.0 mMol/L (3.4-5.1); Sodium 137 mMol/L (136-145); Triglycerides 198 mg/dL (30-150); eGFR 9 See Note
[2025-05-12] MEDS: Norepinephrine/D5W 8mg/250ml 8 MG/250 ML BAG 19.051 MG IV (06:20)
--- NOTE | 2025-05-12 07:34 | ESPR_ITS ---
Documentation for date of: 05/12/25 Subjective Subjective Interval history: Interval History 80 year-old female with PMHx noted for HFpEF, A-fib on Eliquis, bradycardia s/p pacemaker placement in 2022, hypothyroidism,chronic back pain, IDDM II, and hypertension was brought in from home by ambulance for complaints of worsening shortness of breath. No further history obtained from EMS, at the ED patient's BP 75/50 with heart rate of 102 and temp 105.1, labs were pH 7.29 WBC 24, creatinine 2.2, lactate 6, troponin 45, BNP 2800, Pro-Jamshid 23, and TSH of 6. ABG pH 7.29 and pCO2 of 41. CXR showed significant right lobar pneumonia with UA noted for high WBC/RBC/epithelial cells. Head CT was negative for acute findings, patient was intubated, femoral central line along with femoral arterial line were placed in ED. Patient received 3L of LR boluses, received 1 dose of ceftriaxone and azithromycin and was started on Levophed along with dobutamine. Patient will be admitted to ICU for further management and care of septic shock along with acute hypoxic respiratory failure in setting of community-acquired pneumonia. 05/10/25: Patient was examined at bedside; she is currently intubated and chemically induced on fentanyl drip to maintain RASS score -2 for mechanical ventilation. Current plan is to continue IV NS maintenance @ 100 mL/hr, IV cefepime 2 gm qD (started 05/10 @ 09:00) and IV Zithromax 250 mg qD (started 05/10 @ 09:00) for treatment of her community-acquired pneumonia, follow up on sputum culture to guide antibiotic de-escalation, and continue PO Cordarone 200 mg qD and PO Eliquis 2.5 mg BID (both started 05/10 @ 09:00) for treatment of her atrial fibrillation. Of note, patient's endotracheal tube was somehow dislodged today and required readjustment via bronchoscope to return the tube to its proper position. Will continue to monitor patient as her pneumonia is treated (including the performance of daily awakening trials) with the hope that resolution of the infection will remove her state of septic shock and ongoing acute hypoxic respiratory failure (disposition condition requires successful weaning off of ventilatory support and pressors). 05/11/2025: Overnight patient was given magnesium sulfate 4 g IV x 1. Ventilator on AC MV, VT 400, RR 20, PEEP 5, FiO2 40%. On fentanyl infusion, RASS -2. Input 2976, output 20 cc, balance +2956 cc. Patient responsive to noxious stimuli but RASS appears closer to -3, will wean sedation. Labs showed NA 138, K4.1, bicarb 19.4, BUN 36, CR 3.6, Phos 5.5. ABG pH 7.26, pCO2 41. Blood and sputum cultures pending, sputum Gram stain grew 4 plus GPC preliminary. Currently on Levophed infusion, titrating as necessary. Today will give 500 cc normal saline IVF bolus for fluid challenge. If urine output does not improve, will consult nephrology for possible urgent hemodialysis. 05/12/2025: Overnight sedation was weaned, no other events. Input 1165, output 0 cc. Patient remains intubated and mechanically ventilated, RASS -2 on fentanyl and Precedex infusion. Labs showed Hb 9.7, WBC 15.9, BUN 46, CR 4.5. Right lower extremity arterial duplex showed severe right leg obstructive PAD. Today we will place temporary dialysis catheter and plan for lower rate dialysis as per nephrology recommendations. Exam Vital Signs Temp Pulse Resp BP Pulse Ox O2 Del Method FiO2 99.3 F 85 30 H 105/65 92 L Mechanical Ventilation 35 05/12/25 04:00 05/12/25 07:15 05/10/25 06:31 05/12/25 07:15 05/12/25 07:15 05/11/25 12:00 05/12/25 06:08 Narrative Exam Constitutional Sedated and mechanically ventilated HEENT PERRL. Patent nares. Trachea midline Respiratory Chest normal on inspection and clear auscultation bilaterally, reduced air entry at bases. Right IJ temp dialysis catheter noted. Exit site clean Cardiovascular S1 and S2 audible, RRR. No murmurs carotid bruit. No gross JVD. Abdominal Soft, obese and non tender to palpation in all quadrants. BS +. Left femoral central line and arterial line noted. Exit site clean Genitourinary No bladder tenderness, no flank pain. Normal to palpation Musculoskeletal Extremities tone within normal limits. No LE edema. Neurological Sedated on mechanically ventilated Skin Warm, dry and intact. No apparent lesions. Psychiatric Sedated and mechanically ventilated Objective Labs 05/14/25 04:18 05/14/25 04:18 Labs: Laboratory Results - last 24 hr 05/11/25 05/12/25 05/12/25 13:57 04:09 04:40 WBC 15.9 H RBC 3.27 L Hgb 9.7 L Hct 31.3 L MCV 96 MCH 29.7 MCHC 31.0 RDW Std Deviation 52.6 H Plt Count 97 L D Neut % (Auto) 87 H Lymph % (Auto) 7 L [place] % (Auto) 5 Eos % (Auto) 0 Baso % (Auto) 0 Neut # (Auto) 13.8 H Lymph # (Auto) 1.1 [place] # (Auto) 0.7 Eos # (Auto) 0.0 Baso # (Auto) 0.0 Immature Gran # (Auto) 0.16 H Absolute Nucleated RBC 0.00 Immature Gran % 1 H Nucleated RBC % 0 Puncture Site Arterial Line ABG pH 7.23 L ABG pCO2 44 ABG pO2 78 L ABG HCO3 19 L ABG O2 Saturation 94 ABG Base Excess -8 L FiO2 35 Sodium 137 137 Potassium 4.0 4.0 Chloride 103 103 Carbon Dioxide 21.2 21.1 Anion Gap 13 13 BUN 40 H 46 H Creatinine 4.0 H 4.5 H* D Estim Creat Clear Calc 13.7 L 12.5 L eGFR 11 L* 9 L* BUN/Creatinine Ratio 10 L 10 L Glucose 164 H 162 H Calculated Osmolality 287 289 Calcium 8.0 L 8.0 L Corrected Calcium 8.6 8.7 Phosphorus 5.1 5.0 Magnesium 1.8 Albumin 3.2 L 3.1 L Triglycerides 198 H Cholesterol 98 L LDL Cholesterol, Calc 46 HDL Cholesterol 12 L Cholesterol/HDL Ratio 8.2 H ABG Interpretation ABG results: 05/09/25 05/10/25 05/11/25 23:08 07:18 03:56 ABG pH 7.29 L 7.25 L 7.26 L ABG pCO2 41 49 H 41 ABG pO2 133 H 95 D 68 L D ABG HCO3 20 21 19 L ABG O2 Saturation 97 95 92 ABG Base Excess -7 L -6 L -8 L 05/12/25 04:09 ABG pH 7.23 L ABG pCO2 44 ABG pO2 78 L ABG HCO3 19 L ABG O2 Saturation 94 ABG Base Excess -8 L Quality Measures Quality Measures VTE prophylaxis, sepsis Current suspected stage: septic shock (LA >4 and/or hypotension) IVF 30 ml/kg given for lactic acid >4 and/or hypotension: yes Sepsis reassessment completed at (date): 05/12/25 Sepsis reassessment completed at (time): 15:38 Possible source: pulmonary Blood cultures ordered: yes Antibiotic ordered: Yes and none Advance care planning discussed with:: significant other Assessment & Plan Assessment Current Active Medications: Generic Name Dose Route Start Last Admin Trade Name Freq PRN Reason Stop Dose Admin Acetaminophen 650 mg 05/10/25 04:13 05/10/25 21:34 Acetaminophen 325 Mg Tablet PO 06/09/25 04:12 650 mg Q4HR PRN Administration PAIN SCALE 1-3 (mild Acetaminophen 650 mg 05/10/25 04:13 Acetaminophen Supp 650 Mg Supp IA 06/09/25 04:12 Q4HR PRN PAIN SCALE 1-3 (mild Al Hydrox/Mg Hydrox/Simethicone 30 ml 05/10/25 04:13 Mg Hyd/Al Hyd/Jackeline (Maalox Reg) Susp 30 Ml Udc PO 06/09/25 04:12 Q4HR PRN Heartburn or Upset Stomach Amiodarone HCl 200 mg 05/10/25 09:00 05/11/25 09:43 Amiodarone Hcl 200 Mg Tablet PO 06/09/25 08:59 200 mg QDAY YURY Administration Apixaban 2.5 mg 05/10/25 09:00 05/10/25 20:14 Apixaban 2.5 Mg Tablet PO 06/09/25 08:59 2.5 mg On Hold: 05/11/25 08:01 BID YURY Administration Dextrose 25 ml 05/10/25 04:27 Dextrose 50%-Water Inj 50 Ml Syringe IV 06/09/25 04:26 Q15MIN PRN BG 50-70 responsive npo pt Dextrose 50 ml 05/10/25 04:27 Dextrose 50%-Water Inj 50 Ml Syringe IV 06/09/25 04:26 Q15MIN PRN BG <50 OR BG <70 & pt unresponsive Escitalopram Oxalate 20 mg 05/10/25 09:00 05/11/25 09:44 Escitalopram Oxalate 10 Mg Tablet PO 06/09/25 08:59 20 mg QDAY UYRY Administration Glucagon 1 mg 05/10/25 04:27 Glucagon Inj 1 Mg Vial IM Q15MIN PRN BG <70, and no IV access Norepinephrine/Dextrose 8 mg in 250 mls @ 11.907 mls/hr 05/09/25 22:38 05/12/25 06:20 Levophed In D5w 8mg/250ml IV 06/08/25 22:37 0.08 mcg/kg/min .Q21H PRN 19.051 mls/hr PER PROTOCOL Administration Protocol 0.05 MCG/KG/MIN Fentanyl Citrate 2,500 mcg in 250 mls @ 2.5 mls/hr 05/10/25 04:26 05/12/25 06:00 Sublimaze Inj 2,500 Mcg/250 Ml Bag IV 05/15/25 04:25 250 mcg/hr .Q24H PRN 25 mls/hr PER PROTOCOL Titration Protocol 25 MCG/HR Cefepime HCl 2 gm/ Sodium 50 mls @ 100 mls/hr 05/10/25 09:00 05/11/25 09:44 Chloride IV 05/17/25 08:59 100 mls/hr QDAY YURY Administration Azithromycin 250 mg/ Sterile 252.5 mls @ 252.5 mls/hr 05/10/25 09:00 05/11/25 09:43 Water 2.5 ml/ Sodium Chloride IV 05/13/25 08:59 252 mls/hr QDAY YURY Administration Dexmedetomidine/Sodium Chloride 400 mcg in 100 mls @ 5.37 mls/hr 05/11/25 17:04 05/12/25 06:00 Precedex Ivpb IV 06/10/25 17:03 0.4 mcg/kg/hr .[id number] PRN 10.74 mls/hr Per PROTOCOL Titration Protocol 0.2 MCG/KG/HR Insulin Degludec 15 unit 05/10/25 09:00 05/11/25 09:48 Insulin Degludec 5 Unit/0.05 Ml (Per 5 Units) SC 06/09/25 08:59 15 unit QDAY YURY Administration Insulin Human Lispro 0 unit 05/10/25 12:00 05/12/25 05:22 Insulin Lispro (Admelog) 1 Unit/0.01 Ml Unit SC 06/09/25 11:59 2 unit Q6HR YURY Administration Protocol Levothyroxine Sodium 75 mcg 05/10/25 09:00 05/12/25 05:23 Levothyroxine Sodium 25 Mcg Tablet PO 06/09/25 08:59 75 mcg ACBR YURY Administration Magnesium Hydroxide 30 ml 05/10/25 04:13 Milk Of Magnesia Susp 30 Ml Udc PO 06/09/25 04:12 QDAY PRN CONSTIPATION Nitroglycerin 0.4 mg 05/10/25 04:13 Nitroglycerin 0.4 Mg Subl Btl #25 SL Q5MIN PRN CHEST PAIN Pantoprazole Sodium 40 mg 05/10/25 11:00 05/11/25 09:45 Pantoprazole Inj 40 Mg Vial IVP 06/09/25 10:59 40 mg QDAY YURY Administration Sodium Chloride 3 ml 05/09/25 22:45 05/09/25 23:39 Sodium Chloride Rt [place] 0.9% 3 Ml Nebu INH 06/08/25 22:44 3 ml PRN PRN Administration SOLN Plan 80 year-old female with PMHx noted for HFpEF, A-fib on Eliquis, bradycardia s/p pacemaker placement in 2022, hypothyroidism,chronic back pain, IDDM II, and hypertension admitted to ICU for further management and care of septic shock along with acute hypoxic respiratory failure in setting of community-acquired pneumonia. She is currently intubated and chemically induced on fentanyl drip to maintain RASS score -2 for mechanical ventilation. Current plan is to continue IV NS maintenance @ 100 mL/hr, IV cefepime 2 gm qD (started 05/10 @ 09:00) and IV Zithromax 250 mg qD (started 05/10 @ 09:00) for treatment of her community- acquired pneumonia, follow up on sputum culture to guide antibiotic de- escalation, and continue PO Cordarone 200 mg qD and PO Eliquis 2.5 mg BID (both started 05/10 @ 09:00) for treatment of her atrial fibrillation. Of note, patient's endotracheal tube was somehow dislodged today and required readjustment via bronchoscope to return the tube to its proper position. Will continue to monitor patient as her pneumonia is treated (including the performance of daily awakening trials) with the hope that resolution of the infection will remove her state of septic shock and ongoing acute hypoxic respiratory failure (disposition condition requires successful weaning off of ventilatory support and pressors). [employer]BESTOS SHINGLE: #Acute metablic encephalopathy #Chemical sedation Rx: Discontinue fentanyl infusion. Continue Precedex to maintain RASS of -2 Rx: Daily SAT's CVS: #Septic shock 2/2 CAP?resolving #HFpEF #NSTEMI likely type II Troponins downtrended to 0.388 on 05/10 @ 10:15, previously 0.640 on 05/10 @04:47 Rx: Patient received IVF per sepsis protocol. Titrate norepinephrine to maintain MAP greater than 65 Strict I's and O's Repeat echo ordered #Atrial fibrillation Patient noted to be in sinus tachycardia. Continue home PO Cordarone 200 mg qD (started 05/10 @ 09:00) Eliquis held in anticipation for temporary dialysis catheter placement PULM: #Acute hypoxic respiratory failure secondary to community-acquired pneumonia Secondary to septic shock and HFpEF Intubated and mechanically ventilated Maintained on O2 saturation> 90% Renal: #KRYSTAL on CKD # Hyperphosphatemia #AGMA #Lactic acidosis?resolving DDx:Prerenal KRYSTAL in setting of septic shock Patient given IVF per sepsis protocol Rx: Avoid nephrotoxic agents. For temporary dialysis catheter placement today and HD as per nephrology. RRx: follow-up renal panel and monitor urine output. Endocrine #IDDM II Patient on 30 units of insulin glargine daily at home along with regular insulin Rx: Continue 15 units of degludec daily. Continue insulin sliding scale #Hx of Hypothyroidism #Subclinical hypothyroidisim Continue Home levothyroxine TSH elevated at 6 with normal FT4 Likely elevated in setting of acute illness Maintain current levothyroxine dose and follow-up outpatient. GI: #Elevated T. bili Insetting of septic shock, continue to trend Heme: #Leukocytosis?resolving In setting of septic shock/community-acquired pneumonia Dx: WBC 24.2 ? > 20.5 -> 15.9 Rx: Monitor CBC ID: Community-acquired pneumonia Dx: Pending blood and sputum cultures. Sputum Gram stain grew 4+ GPC preliminary Rx:-IV cefepime 2 gm qD (started 05/10 @ 09:00) -IV Zithromax 250 mg qD (started 05/10 @ 09:00) Skin: No active issues ICU Health maintenance: Dispo: Mechanical ventillation, IV antibiotics, Levophed. For RIJ temporary dialysis catheter placement today and HD as per nephrology Diet: Tube feeds as per dietitian DVT ppx: SCDs GI ppx: Protonix 40mg qD Mechanical ventilattion: Yes, Mode: ACMV , VT 400, R 20, FiO2 40% Sedation: Yes, Precedex (RAAS - 2) IV lines: 2 pIV Central line: Yes [Left femoral on 05/10 and RIJ on 05/12 Arterial line: Yes [ Left femoral on 05/10 Mena: Yes (started 05/10 - Code status: FULL CODE Plan of care discussed with Attending Dr. Sabino Eason MD PGY 2 Disclaimer: This note was dictated by speech recognition. Minor errors in machining associate may be present due to voice recognition software. Attending Provider Attestation/Addendum Patient seen and examined with the above resident, Jaren Eason MD. I agree with the findings, assessment, and plan of care as documented separately differences below. Patient's septic shock continues to improve with appropriate antibiotic regimen. Gas exchange remains stable and compliance continues to improve. Patient however having poor urine output and we did discuss with nephrology role for at least a single round of hemodialysis. Vas-Cath was already placed and patient undergoes slow hemodialysis this afternoon to avoid further for potential addition of hypotension in the setting of her shock. Continue monitoring urine output closely along with electrolytes for replacement. Spontaneous and significant signs of neurologic recovery at this point. Try to avoid resumption of sedation for as long as possible but she remains on appropriate lung protective and relation and we can reassess this in the next 24 hours after hemodialysis which will further optimize her for potential extubation. Total critical care time: I personally spent 40 minutes for review of physiologic parameters, directing plan of care throughout today, and coordination of care with other subspecialties. This is exclusive of time spent teaching of staff performing separate billable procedures. Patient remains at significant risk for further morbidity and mortality warranting close monitoring and care only available in the ICU. Critical care services required for acute hypoxic respiratory failure, acute metabolic encephalopathy, acute renal failure, urinary tract infection, right upper lobe pneumonia.
[2025-05-12 07:50] LABS: Glucose Estimated Average 223 mg/dL (80-131); Hemoglobin A1C 9.4 % Hgb (4.8-6.0)
[2025-05-12] MEDS: CEFEPIME INJ 2 GM in SODIUM CHLORIDE 0.9% (Popper) 50 ML IV (08:09)
[2025-05-12] MEDS: ESCITALOPRAM OXALATE 10 MG TABLET 20 MG PO (08:10)
[2025-05-12] MEDS: INSULIN DEGLUDEC 5 UNIT/0.05 ML (PER 5 UNITS) 15 UNIT SC (08:10)
[2025-05-12] MEDS: AMIODARONE HCL 200 MG TABLET PO (08:10)
[2025-05-12] MEDS: AZITHROMYCIN INJ 250 MG, Sterile Water 2.5 ML in SODIUM CHLORIDE 0.9% 250 ML 250 ML 252 MG IV (08:13)
--- NOTE | 2025-05-12 09:05 | PD.RESPRO ---
Documentation for date of: 05/12/25 Subjective Subjective Interval history: History of Presenting Illness: Patient is 80y/o F with PMH of HFpEF, A-fib on Eliquis, bradycardia s/p pacemaker placement in 2022, hypothyroidism,chronic back pain, IDDM II, and hypertension presented to the hospital due to worsening shortness of breathe. Per ICU note, no further history was obtained from the patient from EMS. Patient has been admitted to ICU for management of septic shock and acute hypoxic respiratory failure with community acquired pneumonia. Patient has been consulted to nephrology for management of KRYSTAL on CKD and possibility of hemodialysis. ED course: No further history obtained from EMS, at the ED patient's BP 75/50 with heart rate of 102 and temp 105.1, labs were pH 7.29 WBC 24, creatinine 2.2, lactate 6, troponin 45, BNP 2800, Pro-Jamshid 23, and TSH of 6. ABG pH 7.29 and pCO2 of 41. CXR showed significant right lobar pneumonia with UA noted for high WBC/RBC/epithelial cells. Head CT was negative for acute findings, patient was intubated, femoral central line along with femoral arterial line were placed in ED. Patient received 3L of LR boluses, received 1 dose of ceftriaxone and azithromycin and was started on Levophed along with dobutamine. PMH: Diabetes, HFpEF, A-fib, hypothyroidism, HTN, chronic back pain PSH: Cholecystectomy, 3 back surgeries SH: Does not drink or use illicit drugs. Smoked 1 pack a day for many years , quit 3 months ago. Allergies:?sulfa Medications: amiodarone, amlodipine, eliquis, atorvastatin, bupropion, escitalopram, gabapentin, hydromorphone, Lantus, levothyroxine, Reglan, pioglitazone, trazodone, montelukast. 05/11/2025: Patient unarousable and minimally interactive. BP: 108/58 Cr: 3.6, eGFR: 12, BUN:36 pH: 7.26, Urine Output: 20ml. Continue to monitor Urine output. If no improvement, then likely hemodialysis tomorrow. 05/12/2025: Labs reviewed and patient examined at the ICU. Patient is unarousable and unable to be questioned or interact with medical providers. BP: 84/66 Cr: 4.5, BUN:46, eGFR:9, pH: 7.23. Urine Output: 30ml. Patient will receive conventional Hemodialysis today for 3 hours. CRRT is not indicated at this time. will continue to montior renal function. Exam Vital Signs Temp Pulse Resp BP Pulse Ox O2 Del Method FiO2 99.3 F 95 30 H 110/69 92 L Mechanical Ventilation 35 05/12/25 04:00 05/12/25 08:10 05/10/25 06:31 05/12/25 08:10 05/12/25 07:15 05/11/25 12:00 05/12/25 07:55 Narrative Exam General: Intubated. Unresponsive Eye: normal conjunctiva, no scleral icterus HENT: Normocephalic, atraumatic, moist oral mucosa Neck: Supple, non-tender, no JVD, no lymphadenopathy Lungs: Non-labored respirations, symmetric chest rise, Clear to auscultate bilaterally, No wheezing, rhonchi, crackles Heart: Peripheral pulses intact bilaterally, Regular Rate and Rhythm, No pitting edema of bilateral LEs. Abdomen: Soft, non-tender, non-distended, no palpable masses Musculoskeletal: No cyanosis or edema, No visible joint swelling Skin: Skin is warm, dry, no rashes or lesions. Neuro:intubated, sedated Objective Labs 05/12/25 04:40 05/12/25 04:40 Labs: Laboratory Results - last 24 hr 05/11/25 05/12/25 05/12/25 13:57 04:09 04:40 WBC 15.9 H RBC 3.27 L Hgb 9.7 L Hct 31.3 L MCV 96 MCH 29.7 MCHC 31.0 RDW Std Deviation 52.6 H Plt Count 97 L D Neut % (Auto) 87 H Lymph % (Auto) 7 L [place] % (Auto) 5 Eos % (Auto) 0 Baso % (Auto) 0 Neut # (Auto) 13.8 H Lymph # (Auto) 1.1 [place] # (Auto) 0.7 Eos # (Auto) 0.0 Baso # (Auto) 0.0 Immature Gran # (Auto) 0.16 H Absolute Nucleated RBC 0.00 Immature Gran % 1 H Nucleated RBC % 0 Puncture Site Arterial Line ABG pH 7.23 L ABG pCO2 44 ABG pO2 78 L ABG HCO3 19 L ABG O2 Saturation 94 ABG Base Excess -8 L FiO2 35 Sodium 137 137 Potassium 4.0 4.0 Chloride 103 103 Carbon Dioxide 21.2 21.1 Anion Gap 13 13 BUN 40 H 46 H Creatinine 4.0 H 4.5 H* D Estim Creat Clear Calc 13.7 L 12.5 L eGFR 11 L* 9 L* BUN/Creatinine Ratio 10 L 10 L Glucose [address] Glu mg/dL 223 H Hemoglobin A1c 9.4 H Calculated Osmolality 287 289 Calcium 8.0 L 8.0 L Corrected Calcium 8.6 8.7 Phosphorus 5.1 5.0 Magnesium 1.8 Albumin 3.2 L 3.1 L Triglycerides 198 H Cholesterol 98 L LDL Cholesterol, Calc 46 HDL Cholesterol 12 L Cholesterol/HDL Ratio 8.2 H ABG Interpretation ABG results: 05/09/25 05/10/25 05/11/25 23:08 07:18 03:56 ABG pH 7.29 L 7.25 L 7.26 L ABG pCO2 41 49 H 41 ABG pO2 133 H 95 D 68 L D ABG HCO3 20 21 19 L ABG O2 Saturation 97 95 92 ABG Base Excess -7 L -6 L -8 L 05/12/25 04:09 ABG pH 7.23 L ABG pCO2 44 ABG pO2 78 L ABG HCO3 19 L ABG O2 Saturation 94 ABG Base Excess -8 L Quality Measures Quality Measures VTE prophylaxis, sepsis Current suspected stage: sepsis Possible source: pulmonary Blood cultures ordered: yes Antibiotic ordered: Yes and none Advance care planning discussed with:: patient Assessment & Plan Assessment Current Active Medications: Generic Name Dose Route Start Last Admin Trade Name Freq PRN Reason Stop Dose Admin Acetaminophen 650 mg 05/10/25 04:13 05/10/25 21:34 Acetaminophen 325 Mg Tablet PO 06/09/25 04:12 650 mg Q4HR PRN Administration PAIN SCALE 1-3 (mild Acetaminophen 650 mg 05/10/25 04:13 Acetaminophen Supp 650 Mg Supp DE 06/09/25 04:12 Q4HR PRN PAIN SCALE 1-3 (mild Al Hydrox/Mg Hydrox/Simethicone 30 ml 05/10/25 04:13 Mg Hyd/Al Hyd/Jackeline (Maalox Reg) Susp 30 Ml Udc PO 06/09/25 04:12 Q4HR PRN Heartburn or Upset Stomach Amiodarone HCl 200 mg 05/10/25 09:00 05/12/25 08:10 Amiodarone Hcl 200 Mg Tablet PO 06/09/25 08:59 200 mg QDAY YURY Administration Apixaban 2.5 mg 05/10/25 09:00 05/10/25 20:14 Apixaban 2.5 Mg Tablet PO 06/09/25 08:59 2.5 mg On Hold: 05/11/25 08:01 BID YUYR Administration Dextrose 25 ml 05/10/25 04:27 Dextrose 50%-Water Inj 50 Ml Syringe IV 06/09/25 04:26 Q15MIN PRN BG 50-70 responsive npo pt Dextrose 50 ml 05/10/25 04:27 Dextrose 50%-Water Inj 50 Ml Syringe IV 06/09/25 04:26 Q15MIN PRN BG <50 OR BG <70 & pt unresponsive Escitalopram Oxalate 20 mg 05/10/25 09:00 05/12/25 08:10 Escitalopram Oxalate 10 Mg Tablet PO 06/09/25 08:59 20 mg QDAY YURY Administration Glucagon 1 mg 05/10/25 04:27 Glucagon Inj 1 Mg Vial IM Q15MIN PRN BG <70, and no IV access Norepinephrine/Dextrose 8 mg in 250 mls @ 11.907 mls/hr 05/09/25 22:38 05/12/25 06:20 Levophed In D5w 8mg/250ml IV 06/08/25 22:37 0.08 mcg/kg/min .Q21H PRN 19.051 mls/hr PER PROTOCOL Administration Protocol 0.05 MCG/KG/MIN Fentanyl Citrate 2,500 mcg in 250 mls @ 2.5 mls/hr 05/10/25 04:26 05/12/25 07:34 Sublimaze Inj 2,500 Mcg/250 Ml Bag IV 05/15/25 04:25 150 mcg/hr .Q24H PRN 15 mls/hr PER PROTOCOL Titration Protocol 25 MCG/HR Cefepime HCl 2 gm/ Sodium 50 mls @ 100 mls/hr 05/10/25 09:00 05/12/25 08:09 Chloride IV 05/17/25 08:59 100 mls/hr QDAY YURY Administration Azithromycin 250 mg/ Sterile 252.5 mls @ 252.5 mls/hr 05/10/25 09:00 05/12/25 08:13 Water 2.5 ml/ Sodium Chloride IV 05/13/25 08:59 252 mls/hr QDAY YURY Administration Dexmedetomidine/Sodium Chloride 400 mcg in 100 mls @ 5.37 mls/hr 05/11/25 17:04 05/12/25 07:00 Precedex Ivpb IV 06/10/25 17:03 0.6 mcg/kg/hr .[id number] PRN 16.11 mls/hr Per PROTOCOL Titration Protocol 0.2 MCG/KG/HR Insulin Degludec 15 unit 05/10/25 09:00 05/12/25 08:10 Insulin Degludec 5 Unit/0.05 Ml (Per 5 Units) SC 06/09/25 08:59 15 unit QDAY YURY Administration Insulin Human Lispro 0 unit 05/10/25 12:00 05/12/25 05:22 Insulin Lispro (Admelog) 1 Unit/0.01 Ml Unit SC 06/09/25 11:59 2 unit Q6HR YURY Administration Protocol Levothyroxine Sodium 75 mcg 05/10/25 09:00 05/12/25 05:23 Levothyroxine Sodium 25 Mcg Tablet PO 06/09/25 08:59 75 mcg ACBR YURY Administration Magnesium Hydroxide 30 ml 05/10/25 04:13 Milk Of Magnesia Susp 30 Ml Udc PO 06/09/25 04:12 QDAY PRN CONSTIPATION Nitroglycerin 0.4 mg 05/10/25 04:13 Nitroglycerin 0.4 Mg Subl Btl #25 SL Q5MIN PRN CHEST PAIN Pantoprazole Sodium 40 mg 05/10/25 11:00 05/12/25 08:09 Pantoprazole Inj 40 Mg Vial IVP 06/09/25 10:59 40 mg QDAY YURY Administration Sodium Chloride 3 ml 05/09/25 22:45 05/09/25 23:39 Sodium Chloride Rt [place] 0.9% 3 Ml Nebu INH 06/08/25 22:44 3 ml PRN PRN Administration SOLN Plan Patient is 80y/o F with PMH of HFpEF, A-fib on Eliquis, bradycardia s/p pacemaker placement in 2022, hypothyroidism,chronic back pain, IDDM II, and hypertension presented to the hospital due to worsening shortness of breathe. Per ICU note, no further history was obtained from the patient from EMS. Patient has been admitted to ICU for management of septic shock and acute hypoxic respiratory failure with community acquired pneumonia. Patient has been consulted to nephrology for management of KRYSTAL on CKD and possibility of hemodialysis. #KRYSTAL on CKD #Anemia #AGMA #Lactic acidosis -Upon admission, BUN: 20, Cr:2.2 (Baseline 1.3), eGFR: 22 -Likely prerenal 2/2 sepsis, -Patient has minimal edema, lungs clear, mucus membranes moist. -CXR (05/10/2025): Severe pneumonia right lung pneumonia noted -Currently, BP: 84/66 Cr: 4.5, BUN:46, eGFR:9, pH: 7.23. Plan: -Patient will receive conventional Hemodialysis today for 3 hours. CRRT is not indicated at this time. will continue to monitor renal function. -Avoid nephrotoxins -Renally dose medication #Acute encephalopathy #Septic shock 2/2 CAP #HFpEF #NSTEMI likely type II #Atrial fibrillation #IDDM II #Hx of Hypothyroidism #Subclinical hypothyroidisim #Elevated T. bili #Leukocytosis #Community-acquired pneumonia - Management per ICU team Thank you for allowing us to participate in the care of your patient. Assessment and plan discussed with my attending physician Dr. Wes Melton ([email or web address]-[id number])- Internal medicine resident Attending Provider Attestation/Addendum Patient seen and examined with resident physician Dr. Melton. Note reviewed, agree with findings and recommendations. Patient currently on ventilator. Urine output very minimal. KRYSTAL secondary to ATN. Decided to proceed with dialysis. Vas-Cath placed by ICU team. Patient currently seen on dialysis. Tolerating dialysis without any problems. Hemodialysis for 3 hours, 2K, ultrafiltration 0 L, Epogen 6000, no heparin ordered. Plan of care discussed with the dialysis nurse. Please see dialysis flowsheet for further details. Will do conventional dialysis. No need for CRRT at this point. Will reeval tomorrow.
--- NOTE | 2025-05-12 09:46 | XR_ITS ---
Examination: AP chest single view Technique one AP portable semiupright chest single view Date and time: May 12, 2025, 0952 hours, comparison 05/10/2025 INDICATIONS: Hypoxic respiratory failure, post central line placement today. FINDINGS: Right internal jugular line tip SVC satisfactory position Extensive right lung pneumonia. Endotracheal tube tip 3.3 cm above jaysno. The orogastric tube is in the stomach, the tip is below the level film Transvenous dual-chamber bipolar cardiac leads satisfactory position Minor prominence left ventricle Moderate vascular congestion IMPRESSION: Interval right internal jugular line, tip SVC satisfactory position, no pneumothorax
--- NOTE | 2025-05-12 09:59 | ESOP_ITS ---
PROCEDURES: Procedure Date / Time 05/12/25 0959 Procedure Narrative Procedure Narrative: Attending attestation: I was present for the entire procedure. Patient tolerated procedure well with no immediate complications. No significant blood loss. Follow-up chest x-ray shows no postprocedural pneumothorax and adequate positioning at the tip of the CVC catheter. Proceed with hemodialysis Central Line Placement Right IJ: Procedure comment: PROCEDURE: Right IJ temporary HD catheter INDICATION: Hemodialysis PROCEDURE MACHINE OPERATOR HAY STACKER : Dr Eason ATTENDING PHYSICIAN : Dr Gallo CONSENT : Informed consent was obtained from family, with discussion regarding the procedure, or treatment. I explained the following to the designee: a. Nature of the procedure or treatment and who will perform the procedure or treatment b. Necessity for procedure and the possible benefits. c. Risks and complications (most common and serious) d. Alternative treatments and the risks, benefits and side effects of each (including no treatment). e. Likelihood of the patient achieving his/her goals without this procedure and surgery treatment f. Problems that might occur during the recuperation g. Conflicts of interest, if any PROCEDURE SUMMARY: The Central Line Venous Catheter Insertion Practices form was completed. Starting with the first handwash prior to starting sterile technique. A time out was performed . My hands were washed immediately prior to the procedure. I wore a surgical cap, mask with protective eyewear, full gown and sterile gloves throughout the procedure. The patient was placed in Trendelenburg position. RIGHT chest region was prepped using chlorhexidine scrub and draped in sterile fashion using a full drape and sterile probe cover and sterile gel employed. The medial and lateral heads of the sternocliedomastoid muscle were identified as was the carotid pulse. The Right Internal Jugular vein was identified using the ultrasound. Anesthesia was achieved over the vein using 1% lidocaine. Using real-time out of plane guidance, the introducer needle was inserted into the Right Internal Jugular Vein by ultrasound. A small incision was made at the skin surface with a scalpel and the introducer needle was exchanged for a dilator over the guidewire. After appropriate dilation was obtained, the dilator was exchanged over the wire for a temporary dialysis catheter. The wire was removed and the catheter was sutured in place at skin. A sterile sobraview shield was placed over the catheter at the insertion site. The patient tolerated the procedure without any hemodynamic compromise. At time of procedure completion, all ports aspirated and flushed properly. Estimated blood loss is ~ 5 ml. Post-procedure chest x-ray confirmed appropriate placement Under the supervision of my attending Dr. Sabino Eason MD [[id number]]
[2025-05-12] MEDS: DEXMEDETOMIDINE 400 MCG IVPB 400 MCG/100 ML BAG 16.11 MCG IV (10:45)
[2025-05-12] MEDS: EPOETIN ALFA-EPBX INJ 10,000 UNIT/ML VIAL (NON-ESRD) 10000 UNIT SC (13:19)
--- NOTE | 2025-05-12 13:21 | PC.DIETICIAN ---
Nutrition prescription When indicated, consider: Nepro at 20 ml/hr via OG tube by pump. Advance 10 ml every 8 hrs to goal rate of 45 ml/hr x 22 hrs. If no IV fluids, water flushes of 25 ml/hr (or per MD). -Hold TF for one hour before and after levothyroxine administration-
[2025-05-12] MEDS: HEPARIN SOD INJ 1000 UNIT/ML VIAL 10 ML 2600 UNIT INDWELLCAT (13:57)
--- NOTE | 2025-05-12 15:35 | PC.SS ---
Update: Patient intubated/sedated. Patient received 1st session of dialysis today. Patient receiving pressor support. Vitals stable. NPO. Afebrile. Dr. Harvey consulting.
[2025-05-12] MEDS: DEXMEDETOMIDINE 400 MCG IVPB 400 MCG/100 ML BAG 21.48 MCG IV (16:38)
[2025-05-12] MEDS: MUPIROCIN OINT 2% 15 GM TUBE TOP (17:09)
[2025-05-12] MEDS: DEXMEDETOMIDINE 400 MCG IVPB 400 MCG/100 ML BAG 32.22 MCG IV ×2 (19:21→22:07)
[2025-05-13] VITALS (110 sets, daily range): BP systolic 69–192; BP diastolic 40–192; PULSE 70–118; RESP 10–36; TEMP 37.6–37.9; O2SAT 89–100
[2025-05-13] MEDS: INSULIN LISPRO (AdmeLOG) 1 UNIT/0.01 ML UNIT SC ×4 (00:39→23:30)
[2025-05-13] MEDS: DEXMEDETOMIDINE 400 MCG IVPB 400 MCG/100 ML BAG 32.22 MCG IV ×3 (01:14→06:45)
[2025-05-13 04:18] LABS: Base Excess -4 (-3-3); HCO3 22 mEq/L (20-26); O2 Saturation 92 % (91-98); PCO2 43 mmHg (32.0-48.0); PO2 71 mmHg (83-108); pH, Arterial 7.32 (7.35-7.45)
[2025-05-13 04:19] LABS: Allen Test Not Performed; Inspired Oxygen, FIO2 30 %; Puncture Site Arterial Line
[2025-05-13] MEDS: LEVOTHYROXINE SODIUM 25 MCG TABLET 75 MCG PO (05:37)
[2025-05-13] MEDS: fentaNYL 2,500 MCG/250 ML BAG 2,500 MCG/250 ML BAG 15 MCG IV (05:54)
[2025-05-13] MEDS: Norepinephrine/D5W 8mg/250ml 8 MG/250 ML BAG 9.525 MG IV (06:00)
[2025-05-13 06:12] LABS: Basophils # (Auto) 0.0 Thou/mm3 (0.0-0.2); Basophils % (Auto) 0 % (0-2.5); Eosinophils # (Auto) 0.0 Thou/mm3 (0.0-0.5); Eosinophils % (Auto) 0 % (0-10); Hematocrit 29.5 % (36.0-46.0); Hemoglobin 9.4 g/dL (12.0-16.0); Immature Granulocytes Auto 0.19 Thou/mm3 (0.00-0.00); Lymphocytes # (Auto) 1.2 Thou/mm3 (1.0-4.8); Lymphocytes % (Auto) 14 % (10-50); Mean Corpuscular HGB Conc 31.9 g/dl (31.0-37.0); Mean Corpuscular Hemoglobin 29.9 pg (25.0-35.0); Mean Corpuscular Volume 94 fL (80-100); Monocytes # (Auto) 0.6 Thou/mm3 (0.0-0.8); Monocytes % (Auto) 8 % (0-12); Neutrophils # (Auto) 6.2 Thou/mm3 (1.8-7.7); Neutrophils % (Auto) 75 % (37-80); Nucleated Red Blood Cell # 0.02 Thou/mm3 (0.00-0.00); Nucleated Red Blood Cell % 0 /100 WBC (0); RDW Standard Deviation 51.6 fL (36.4-46.3); Red Blood Count 3.14 Miln/mm3 (4.00-5.20); White Blood Count 8.2 Thou/mm3 (3.6-11.0)
[2025-05-13 06:15] LABS: Platelet Count 79 Thou/mm3 (140-440)
[2025-05-13 06:39] LABS: Albumin, Serum 2.9 gm/dL (3.4-4.8); Anion Gap 14 (7-16); BUN/Creatinine Ratio 13 Ratio (12-20); Blood Urea Nitrogen 43 mg/dL (9-23); Calcium 8.1 mg/dL (8.3-10.6); Calcium (Corrected) 9.0 mg/dL (8.5-10.1); Carbon Dioxide 22.1 mMol/L (20.0-31.0); Chloride 101 mMol/L (98-107); Creatinine (Component) 3.4 mg/dL (0.6-1.3); Estimated Creatinine Clearance 16.3 mL/min (>60); Glucose 186 mg/dL (74-106); Magnesium 1.8 mg/dL (1.6-2.6); Osmolality,Calculated 289 (275-295); Phosphorous 3.9 mg/dL (2.4-5.1); Potassium 3.7 mMol/L (3.4-5.1); Sodium 137 mMol/L (136-145); eGFR 13 See Note
--- NOTE | 2025-05-13 07:22 | PD.RESPRO ---
Documentation for date of: 05/13/25 Subjective Subjective Interval history: 80 year-old female with PMHx noted for HFpEF, A-fib on Eliquis, bradycardia s/p pacemaker placement in 2022, hypothyroidism,chronic back pain, IDDM II, and hypertension was brought in from home by ambulance for complaints of worsening shortness of breath. No further history obtained from EMS, at the ED patient's BP 75/50 with heart rate of 102 and temp 105.1, labs were pH 7.29 WBC 24, creatinine 2.2, lactate 6, troponin 45, BNP 2800, Pro-Jamshid 23, and TSH of 6. ABG pH 7.29 and pCO2 of 41. CXR showed significant right lobar pneumonia with UA noted for high WBC/RBC/epithelial cells. Head CT was negative for acute findings, patient was intubated, femoral central line along with femoral arterial line were placed in ED. Patient received 3L of LR boluses, received 1 dose of ceftriaxone and azithromycin and was started on Levophed along with dobutamine. Patient will be admitted to ICU for further management and care of septic shock along with acute hypoxic respiratory failure in setting of community-acquired pneumonia. Interval History 05/10/25: Patient was examined at bedside; she is currently intubated and chemically induced on fentanyl drip to maintain RASS score -2 for mechanical ventilation. Current plan is to continue IV NS maintenance @ 100 mL/hr, IV cefepime 2 gm qD (started 05/10 @ 09:00) and IV Zithromax 250 mg qD (started 05/10 @ 09:00) for treatment of her community-acquired pneumonia, follow up on sputum culture to guide antibiotic de-escalation, and continue PO Cordarone 200 mg qD and PO Eliquis 2.5 mg BID (both started 05/10 @ 09:00) for treatment of her atrial fibrillation. Of note, patient's endotracheal tube was somehow dislodged today and required readjustment via bronchoscope to return the tube to its proper position. Will continue to monitor patient as her pneumonia is treated (including the performance of daily awakening trials) with the hope that resolution of the infection will remove her state of septic shock and ongoing acute hypoxic respiratory failure (disposition condition requires successful weaning off of ventilatory support and pressors). 05/11/2025: Overnight patient was given magnesium sulfate 4 g IV x 1. Ventilator on AC MV, VT 400, RR 20, PEEP 5, FiO2 40%. On fentanyl infusion, RASS -2. Input 2976, output 20 cc, balance +2956 cc. Patient responsive to noxious stimuli but RASS appears closer to -3, will wean sedation. Labs showed NA 138, K4.1, bicarb 19.4, BUN 36, CR 3.6, Phos 5.5. ABG pH 7.26, pCO2 41. Blood and sputum cultures pending, sputum Gram stain grew 4 plus GPC preliminary. Currently on Levophed infusion, titrating as necessary. Today will give 500 cc normal saline IVF bolus for fluid challenge. If urine output does not improve, will consult nephrology for possible urgent hemodialysis. 05/12/2025: Overnight sedation was weaned, no other events. Input 1165, output 0 cc. Patient remains intubated and mechanically ventilated, RASS -2 on fentanyl and Precedex infusion. Labs showed Hb 9.7, WBC 15.9, BUN 46, CR 4.5. Right lower extremity arterial duplex showed severe right leg obstructive PAD. Today we will place temporary dialysis catheter and plan for low rate dialysis as per nephrology recommendations. 05/13/2025: No events overnight. Input 1306, output 4 5, balance +901 cc. This morning patient remains on Precedex infusion with a RASS of -1. Norepinephrine infusion was turned off overnight as well as fentanyl infusion. ABG showed pH 7.32, pCO2 43. Hb 9.4, PLT 79, K3.7, Mg 1.8, BUN 43, CR 3.4. Will continue with daily SAT's and give patient a break on pressure support for 2 hours today. No plans for extubation as yet as patient's neurological status is still unable to be assessed due to residual sedation. Bumex 2 Mg IV x 1 as per nephrology recommendations. HD will also be held today as per nephrology. Exam Vital Signs Temp Pulse Resp BP Pulse Ox O2 Del Method O2 Flow Rate 99.7 F 92 20 146/68 H 99 Mechanical Ventilation 35 05/13/25 04:00 05/13/25 07:01 05/12/25 13:12 05/13/25 07:01 05/13/25 07:01 05/13/25 04:00 05/12/25 08:00 FiO2 30 05/13/25 06:26 Narrative Exam Constitutional Sedated and mechanically ventilated HEENT PERRL. Patent nares. Trachea midline Respiratory Chest normal on inspection and clear auscultation bilaterally, reduced air entry at bases. Right IJ temp dialysis catheter noted. Exit site clean Cardiovascular S1 and S2 audible, RRR. No murmurs carotid bruit. No gross JVD. Abdominal Soft, obese and non tender to palpation in all quadrants. BS +. Left femoral central line and arterial line noted. Exit site clean Genitourinary No bladder tenderness, no flank pain. Normal to palpation Musculoskeletal Extremities tone within normal limits. 2+ lower extremity edema up to hips bilaterally Neurological Sedated on mechanically ventilated Skin Bluish discoloration of great toe, 2nd, 3rd and 4th toes on right foot. Absent dorsalis pedis and posterior tibial pulse on right leg. Psychiatric Sedated and mechanically ventilated Objective Labs 05/14/25 04:18 05/14/25 04:18 Labs: Laboratory Results - last 24 hr 05/12/25 05/13/25 05/13/25 04:40 04:02 05:14 WBC 8.2 D RBC 3.14 L Hgb 9.4 L Hct 29.5 L MCV 94 MCH 29.9 MCHC 31.9 RDW Std Deviation 51.6 H Plt Count 79 L Neut % (Auto) 75 Lymph % (Auto) 14 Randall % (Auto) 8 Eos % (Auto) 0 Baso % (Auto) 0 Neut # (Auto) 6.2 Lymph # (Auto) 1.2 Randall # (Auto) 0.6 Eos # (Auto) 0.0 Baso # (Auto) 0.0 Immature Gran # (Auto) 0.19 H Absolute Nucleated RBC 0.02 H Immature Gran % 2 H Nucleated RBC % 0 Puncture Site Arterial Line ABG pH 7.32 L ABG pCO2 43 ABG pO2 71 L ABG HCO3 22 ABG O2 Saturation 92 ABG Base Excess -4 L FiO2 30 Sodium 137 Potassium 3.7 Chloride 101 Carbon Dioxide 22.1 Anion Gap 14 BUN 43 H Creatinine 3.4 H D Estim Creat Clear Calc 16.3 L eGFR 13 L* BUN/Creatinine Ratio [address] Glu mg/dL 223 H Hemoglobin A1c 9.4 H Calculated Osmolality 289 Calcium 8.1 L Corrected Calcium 9.0 Phosphorus 3.9 Magnesium 1.8 Albumin 2.9 L ABG Interpretation ABG results: 05/09/25 05/10/25 05/11/25 23:08 07:18 03:56 ABG pH 7.29 L 7.25 L 7.26 L ABG pCO2 41 49 H 41 ABG pO2 133 H 95 D 68 L D ABG HCO3 20 21 19 L ABG O2 Saturation 97 95 92 ABG Base Excess -7 L -6 L -8 L 05/12/25 05/13/25 04:09 04:02 ABG pH 7.23 L 7.32 L ABG pCO2 44 43 ABG pO2 78 L 71 L ABG HCO3 19 L 22 ABG O2 Saturation 94 92 ABG Base Excess -8 L -4 L Quality Measures Quality Measures VTE prophylaxis, sepsis Current suspected stage: septic shock (LA >4 and/or hypotension) Sepsis reassessment completed at (date): 05/13/25 Sepsis reassessment completed at (time): 17:42 Possible source: pulmonary Blood cultures ordered: yes Antibiotic ordered: Yes and none Advance care planning discussed with:: significant other Assessment & Plan Assessment Current Active Medications: Generic Name Dose Route Start Last Admin Trade Name Freq PRN Reason Stop Dose Admin Acetaminophen 650 mg 05/10/25 04:13 05/10/25 21:34 Acetaminophen 325 Mg Tablet PO 06/09/25 04:12 650 mg Q4HR PRN Administration PAIN SCALE 1-3 (mild Acetaminophen 650 mg 05/10/25 04:13 Acetaminophen Supp 650 Mg Supp WA 06/09/25 04:12 Q4HR PRN PAIN SCALE 1-3 (mild Al Hydrox/Mg Hydrox/Simethicone 30 ml 05/10/25 04:13 Mg Hyd/Al Hyd/Jackeline (Maalox Reg) Susp 30 Ml Udc PO 06/09/25 04:12 Q4HR PRN Heartburn or Upset Stomach Amiodarone HCl 200 mg 05/10/25 09:00 05/12/25 08:10 Amiodarone Hcl 200 Mg Tablet PO 06/09/25 08:59 200 mg QDAY YURY Administration Apixaban 2.5 mg 05/10/25 09:00 05/10/25 20:14 Apixaban 2.5 Mg Tablet PO 06/09/25 08:59 2.5 mg On Hold: 05/11/25 08:01 BID YURY Administration Dextrose 25 ml 05/10/25 04:27 Dextrose 50%-Water Inj 50 Ml Syringe IV 06/09/25 04:26 Q15MIN PRN BG 50-70 responsive npo pt Dextrose 50 ml 05/10/25 04:27 Dextrose 50%-Water Inj 50 Ml Syringe IV 06/09/25 04:26 Q15MIN PRN BG <50 OR BG <70 & pt unresponsive Escitalopram Oxalate 20 mg 05/10/25 09:00 05/12/25 08:10 Escitalopram Oxalate 10 Mg Tablet PO 06/09/25 08:59 20 mg QDAY YURY Administration Glucagon 1 mg 05/10/25 04:27 Glucagon Inj 1 Mg Vial IM Q15MIN PRN BG <70, and no IV access Heparin Sodium (Porcine) 2,600 unit 05/12/25 11:51 05/12/25 13:57 Heparin Sod Inj 1000 Unit/Ml Vial 10 Ml INDWELLCAT 05/26/25 11:50 2,600 unit X1 PRN Administration DIALYSIS Norepinephrine/Dextrose 8 mg in 250 mls @ 11.907 mls/hr 05/09/25 22:38 05/13/25 06:00 Levophed In D5w 8mg/250ml IV 06/08/25 22:37 0.04 mcg/kg/min .Q21H PRN 9.525 mls/hr PER PROTOCOL Administration Protocol 0.05 MCG/KG/MIN Fentanyl Citrate 2,500 mcg in 250 mls @ 2.5 mls/hr 05/10/25 04:26 05/13/25 06:00 Sublimaze Inj 2,500 Mcg/250 Ml Bag IV 05/15/25 04:25 150 mcg/hr .Q24H PRN 15 mls/hr PER PROTOCOL Titration Protocol 25 MCG/HR Cefepime HCl 2 gm/ Sodium 50 mls @ 100 mls/hr 05/10/25 09:00 05/12/25 08:09 Chloride IV 05/17/25 08:59 100 mls/hr QDAY YURY Administration Azithromycin 250 mg/ Sterile 252.5 mls @ 252.5 mls/hr 05/10/25 09:00 05/12/25 08:13 Water 2.5 ml/ Sodium Chloride IV 05/13/25 08:59 252 mls/hr QDAY YURY Administration Dexmedetomidine/Sodium Chloride 400 mcg in 100 mls @ 5.37 mls/hr 05/11/25 17:04 05/13/25 06:45 Precedex Ivpb IV 06/10/25 17:03 1.2 mcg/kg/hr .[id number] PRN 32.22 mls/hr Per PROTOCOL Administration Protocol 0.2 MCG/KG/HR Albumin Human 25 gm in 100 mls @ 100 mls/min 05/12/25 11:51 Albuminar-25 Ivpb IV 05/15/25 11:50 PRN PRN DIALYSIS Insulin Degludec 15 unit 05/10/25 09:00 05/12/25 08:10 Insulin Degludec 5 Unit/0.05 Ml (Per 5 Units) SC 06/09/25 08:59 15 unit QDAY YURY Administration Insulin Human Lispro 0 unit 05/10/25 12:00 05/13/25 05:36 Insulin Lispro (Admelog) 1 Unit/0.01 Ml Unit SC 06/09/25 11:59 2 unit Q6HR YURY Administration Protocol Levothyroxine Sodium 75 mcg 05/10/25 09:00 05/13/25 05:37 Levothyroxine Sodium 25 Mcg Tablet PO 06/09/25 08:59 75 mcg ACBR YURY Administration Magnesium Hydroxide 30 ml 05/10/25 04:13 Milk Of Magnesia Susp 30 Ml Udc PO 06/09/25 04:12 QDAY PRN CONSTIPATION Nitroglycerin 0.4 mg 05/10/25 04:13 Nitroglycerin 0.4 Mg Subl Btl #25 SL Q5MIN PRN CHEST PAIN Pantoprazole Sodium 40 mg 05/10/25 11:00 05/12/25 08:09 Pantoprazole Inj 40 Mg Vial IVP 06/09/25 10:59 40 mg QDAY YURY Administration Sodium Chloride 3 ml 05/09/25 22:45 05/09/25 23:39 Sodium Chloride Rt [place] 0.9% 3 Ml Nebu INH 06/08/25 22:44 3 ml PRN PRN Administration SOLN Plan 80 year-old female with PMHx noted for HFpEF, A-fib on Eliquis, bradycardia s/p pacemaker placement in 2022, hypothyroidism,chronic back pain, IDDM II, and hypertension admitted to ICU for further management and care of septic shock along with acute hypoxic respiratory failure in setting of community-acquired pneumonia. She is currently intubated and chemically induced on fentanyl drip to maintain RASS score -2 for mechanical ventilation. Current plan is to continue IV NS maintenance @ 100 mL/hr, IV cefepime 2 gm qD (started 05/10 @ 09:00) and IV Zithromax 250 mg qD (started 05/10 @ 09:00) for treatment of her community-acquired pneumonia, follow up on sputum culture to guide antibiotic de-escalation, and continue PO Cordarone 200 mg qD and PO Eliquis 2.5 mg BID (both started 05/10 @ 09:00) for treatment of her atrial fibrillation. Of note, patient's endotracheal tube was somehow dislodged today and required readjustment via bronchoscope to return the tube to its proper position. Will continue to monitor patient as her pneumonia is treated (including the performance of daily awakening trials) with the hope that resolution of the infection will remove her state of septic shock and ongoing acute hypoxic respiratory failure (disposition condition requires successful weaning off of ventilatory support and pressors). MOLDER SWEEP: Acute metablic encephalopathy - resolving Chemical sedation Rx: Continue Precedex to maintain RASS of -2 Rx: Daily SAT's CVS: Septic shock 2/2 CAP?resolving HFpEF NSTEMI likely type II Troponins downtrended to 0.388 on 05/10 @ 10:15, previously 0.640 on 05/10 @04:47 Rx: Patient received IVF per sepsis protocol. Titrate norepinephrine to maintain MAP greater than 65 Strict I's and O's Repeat echo ordered Atrial fibrillation Patient noted to be in sinus tachycardia. Continue home PO Cordarone 200 mg qD (started 05/10 @ 09:00) Eliquis held Peripheral arterial disease Patient noted to have reduced pulses on right leg. Toes on right foot appear blue Dx: Right lower extremity arterial duplex ultrasound showed severe obstructive PAD. No flow posterior tibial artery. Rx: For outpatient follow-up once patient gets over this acute phase of her illness. PULM: Acute hypoxic respiratory failure secondary to community-acquired pneumonia - resolved Secondary to septic shock and HFpEF Intubated and mechanically ventilated Maintained on O2 saturation> 90% RRX: Daily SBT Renal: KRYSTAL on CKD Hyperphosphatemia DDx:Prerenal KRYSTAL in setting of septic shock Patient given IVF per sepsis protocol Rx: Avoid nephrotoxic agents. For HD as per nephrology. RRx: follow-up renal panel and monitor urine output. Endocrine IDDM II Patient on 30 units of insulin glargine daily at home along with regular insulin Rx: Continue 15 units of degludec daily. Continue insulin sliding scale Hx of Hypothyroidism Continue Home levothyroxine TSH elevated at 6 with normal FT4 Likely elevated in setting of acute illness Maintain current levothyroxine dose and follow-up outpatient. GI: Elevated T. bili Insetting of septic shock, continue to trend Heme: Leukocytosis?resolving In setting of septic shock/community-acquired pneumonia Dx: WBC 24.2 ? > 20.5 -> 15.9 -> 8.3 Rx: Monitor CBC ID: Community-acquired pneumonia Dx: Pending blood and sputum cultures. Sputum Gram stain grew 4+ GPC preliminary Rx:-IV cefepime 2 gm qD (started 05/10 @ 09:00) -IV Zithromax 250 mg qD (started 05/10 -05/14) Skin: No active issues ICU Health maintenance: Dispo: Mechanical ventillation, IV antibiotics, Levophed. For RIJ temporary dialysis catheter placement today and HD as per nephrology Diet: Tube feeds as per dietitian DVT ppx: SCDs GI ppx: Protonix 40mg qD Mechanical ventilattion: Yes, Mode: ACMV , VT 400, R 20, FiO2 40% Sedation: Yes, Precedex (RAAS - 2) IV lines: 2 pIV Central line: Yes [Left femoral on 05/10 and RIJ on 05/12 Arterial line: Yes [ Left femoral on 05/10 Mena: Yes (started 05/10 - Code status: FULL CODE Plan of care discussed with Attending Dr. Sabino Eason MD PGY 2 Disclaimer: This note was dictated by speech recognition. Minor errors in dehydrogenation converter operator may be present due to voice recognition software. Attending Provider Attestation/Addendum Patient seen and examined with above resident, Jaren Eason MD I agree with the findings, assessment, and plan of care as documented except for any differences below. Patient continues to improve from a hemodynamic perspective with ability to wean off vasopressor support. Patient remains on appropriate empiric antibiotics with coverage for urinary and pulmonary sources. Patient's mentation continues to lag likely due to poor clearance of sedation medications including fentanyl and propofol given both are lipophilic. Patient also with acute renal failure requiring hemodialysis plan at this point we will continue to monitor as patient is making somewhere. Nephrology is following along and central access for dialysis remains in place. Patient's partner was updated at bedside on plan of care including slow weaning. She did tolerate pressure support from mechanical standpoint with adequate RSBI and tidal volume but patient's mentation will be limiting her ability to be weaned today. We will start some of her home medications for her underlying psychiatric illness and minimize any sedation with introduction of only Precedex and intermittent fentanyl at this point. Total critical care time: I personally spent 45 minutes for review of physiologic parameters, directing plan of care throughout the day, coordination of care with other subspecialties, and counseling patient's family at bedside. This is exclusive of time spent teaching of staff performing acceptable procedures. Patient remains at significant risk for further morbidity and mortality warranting close monitoring and care only available in ICU. Critical care services required for septic shock, acute hypoxic respiratory failure, acute renal failure, right upper lobe pneumonia, and urinary tract infection.
[2025-05-13 08:30] LABS: Hepatitis A Antibody IgM Non Reactive (Non React); Hepatitis B Core Antibody IgM Non Reactive (Non React); Hepatitis B Surface Ab NonReact(Not Immune) (Immune); Hepatitis B Surface Antigen Non Reactive (Non React); Hepatitis C Antibody Non Reactive (Non React)
[2025-05-13] MEDS: Magnesium Sulfate 2 GM Ivpb 2 GM/50 ML BAG IV (09:03)
[2025-05-13] MEDS: BUMETANIDE INJ 0.25 MG/ML VIAL 4 ML 2 MG IVP (09:03)
[2025-05-13] MEDS: CEFEPIME INJ 2 GM in SODIUM CHLORIDE 0.9% (Popper) 50 ML IV (09:04)
[2025-05-13] MEDS: AMIODARONE HCL 200 MG TABLET PO (09:04)
[2025-05-13] MEDS: ESCITALOPRAM OXALATE 10 MG TABLET 20 MG PO (09:04)
[2025-05-13] MEDS: DEXMEDETOMIDINE 400 MCG IVPB 400 MCG/100 ML BAG 37.59 MCG IV ×5 (09:32→22:20)
[2025-05-13] MEDS: INSULIN DEGLUDEC 5 UNIT/0.05 ML (PER 5 UNITS) 15 UNIT SC (10:04)
--- NOTE | 2025-05-13 11:30 | ESPR_ITS ---
Documentation for date of: 05/13/25 Subjective Subjective Interval history: History of Presenting Illness: Patient is 80y/o F with PMH of HFpEF, A-fib on Eliquis, bradycardia s/p pacemaker placement in 2022, hypothyroidism,chronic back pain, IDDM II, and hypertension presented to the hospital due to worsening shortness of breathe. Per ICU note, no further history was obtained from the patient from EMS. Patient has been admitted to ICU for management of septic shock and acute hypoxic respiratory failure with community acquired pneumonia. Patient has been consulted to nephrology for management of KRYSTAL on CKD and possibility of hemodialysis. ED course: No further history obtained from EMS, at the ED patient's BP 75/50 with heart rate of 102 and temp 105.1, labs were pH 7.29 WBC 24, creatinine 2.2, lactate 6, troponin 45, BNP 2800, Pro-Jamshid 23, and TSH of 6. ABG pH 7.29 and pCO2 of 41. CXR showed significant right lobar pneumonia with UA noted for high WBC/RBC/epithelial cells. Head CT was negative for acute findings, patient was intubated, femoral central line along with femoral arterial line were placed in ED. Patient received 3L of LR boluses, received 1 dose of ceftriaxone and azithromycin and was started on Levophed along with dobutamine. PMH: Diabetes, HFpEF, A-fib, hypothyroidism, HTN, chronic back pain PSH: Cholecystectomy, 3 back surgeries SH: Does not drink or use illicit drugs. Smoked 1 pack a day for many years , quit 3 months ago. Allergies:?sulfa Medications: amiodarone, amlodipine, eliquis, atorvastatin, bupropion, escitalopram, gabapentin, hydromorphone, Lantus, levothyroxine, Reglan, pioglitazone, trazodone, montelukast. 05/11/2025: Patient unarousable and minimally interactive. BP: 108/58 Cr: 3.6, eGFR: 12, BUN:36 pH: 7.26, Urine Output: 20ml. Continue to monitor Urine output. If no improvement, then likely hemodialysis tomorrow. 05/12/2025: Labs reviewed and patient examined at the ICU. Patient is unarousable and unable to be questioned or interact with medical providers. BP: 84/66 Cr: 4.5, BUN:46, eGFR:9, pH: 7.23. Urine Output: 30ml. Patient will receive conventional Hemodialysis today for 3 hours. CRRT is not indicated at this time. will continue to montior renal function. 05/13/2025: Labs reviewed and patient examined at the ICU. Patient is still unarousable and unable to be questioned or interact with medical providers. BP: 136/67 Cr: 3.4, BUN:43, eGFR:13, pH: 7.32. Urine Output: 295ml. Patient's Creatinine is getting better. Will hold hemodialysis for today . Given Bumex 2mg x1 because of bilateral lower extremity swelling. Exam Vital Signs Temp Pulse Resp BP Pulse Ox O2 Del Method O2 Flow Rate 99.9 F 96 20 130/60 100 Mechanical Ventilation 35 05/13/25 08:00 05/13/25 10:46 05/12/25 13:12 05/13/25 10:46 05/13/25 10:46 05/13/25 08:00 05/12/25 08:00 FiO2 30 05/13/25 10:46 Narrative Exam General: Intubated. Unresponsive Eye: normal conjunctiva, no scleral icterus HENT: Normocephalic, atraumatic, moist oral mucosa Neck: Supple, non-tender, no JVD, no lymphadenopathy Lungs: Non-labored respirations, symmetric chest rise, Clear to auscultate bilaterally, No wheezing, rhonchi, crackles Heart: Peripheral pulses intact bilaterally, Regular Rate and Rhythm, No pitting edema of bilateral LEs. Abdomen: Soft, non-tender, non-distended, no palpable masses Musculoskeletal: No visible joint swelling, +2 bilateral lower extremity swelling. Skin: Skin is warm, dry, no rashes or lesions. Neuro:intubated, sedated Objective Labs 05/13/25 05:14 05/13/25 05:14 Labs: Laboratory Results - last 24 hr 05/13/25 05/13/25 04:02 05:14 WBC 8.2 D RBC 3.14 L Hgb 9.4 L Hct 29.5 L MCV 94 MCH 29.9 MCHC 31.9 RDW Std Deviation 51.6 H Plt Count 79 L Neut % (Auto) 75 Lymph % (Auto) 14 [place] % (Auto) 8 Eos % (Auto) 0 Baso % (Auto) 0 Neut # (Auto) 6.2 Lymph # (Auto) 1.2 [place] # (Auto) 0.6 Eos # (Auto) 0.0 Baso # (Auto) 0.0 Immature Gran # (Auto) 0.19 H Absolute Nucleated RBC 0.02 H Immature Gran % 2 H Nucleated RBC % 0 Puncture Site Arterial Line ABG pH 7.32 L ABG pCO2 43 ABG pO2 71 L ABG HCO3 22 ABG O2 Saturation 92 ABG Base Excess -4 L FiO2 30 Sodium 137 Potassium 3.7 Chloride 101 Carbon Dioxide 22.1 Anion Gap 14 BUN 43 H Creatinine 3.4 H D Estim Creat Clear Calc 16.3 L eGFR 13 L* BUN/Creatinine Ratio 13 Glucose 186 H Calculated Osmolality 289 Calcium 8.1 L Corrected Calcium 9.0 Phosphorus 3.9 Magnesium 1.8 Albumin 2.9 L Hepatitis A IgM Ab Non Reactive Hep Bs Antigen Non Reactive Hep Bs Antibody NonReact(Not Immune) L Hep B Core IgM Ab Non Reactive Hepatitis C Antibody Non Reactive ABG Interpretation ABG results: 05/09/25 05/10/25 05/11/25 23:08 07:18 03:56 ABG pH 7.29 L 7.25 L 7.26 L ABG pCO2 41 49 H 41 ABG pO2 133 H 95 D 68 L D ABG HCO3 20 21 19 L ABG O2 Saturation 97 95 92 ABG Base Excess -7 L -6 L -8 L 05/12/25 05/13/25 04:09 04:02 ABG pH 7.23 L 7.32 L ABG pCO2 44 43 ABG pO2 78 L 71 L ABG HCO3 19 L 22 ABG O2 Saturation 94 92 ABG Base Excess -8 L -4 L Quality Measures Quality Measures VTE prophylaxis, sepsis Current suspected stage: sepsis Possible source: pulmonary Blood cultures ordered: yes Antibiotic ordered: Yes and none Advance care planning discussed with:: patient Assessment & Plan Assessment Current Active Medications: Generic Name Dose Route Start Last Admin Trade Name Freq PRN Reason Stop Dose Admin Acetaminophen 650 mg 05/10/25 04:13 05/10/25 21:34 Acetaminophen 325 Mg Tablet PO 06/09/25 04:12 650 mg Q4HR PRN Administration PAIN SCALE 1-3 (mild Acetaminophen 650 mg 05/10/25 04:13 Acetaminophen Supp 650 Mg Supp [place] 06/09/25 04:12 Q4HR PRN PAIN SCALE 1-3 (mild Al Hydrox/Mg Hydrox/Simethicone 30 ml 05/10/25 04:13 Mg Hyd/Al Hyd/Jackeline (Maalox Reg) Susp 30 Ml Udc PO 06/09/25 04:12 Q4HR PRN Heartburn or Upset Stomach Amiodarone HCl 200 mg 05/10/25 09:00 05/13/25 09:04 Amiodarone Hcl 200 Mg Tablet PO 06/09/25 08:59 200 mg QDAY YURY Administration Apixaban 2.5 mg 05/10/25 09:00 05/10/25 20:14 Apixaban 2.5 Mg Tablet PO 06/09/25 08:59 2.5 mg On Hold: 05/11/25 08:01 BID YURY Administration Dextrose 25 ml 05/10/25 04:27 Dextrose 50%-Water Inj 50 Ml Syringe IV 06/09/25 04:26 Q15MIN PRN BG 50-70 responsive npo pt Dextrose 50 ml 05/10/25 04:27 Dextrose 50%-Water Inj 50 Ml Syringe IV 06/09/25 04:26 Q15MIN PRN BG <50 OR BG <70 & pt unresponsive Escitalopram Oxalate 20 mg 05/10/25 09:00 05/13/25 09:04 Escitalopram Oxalate 10 Mg Tablet PO 06/09/25 08:59 20 mg QDAY YURY Administration Glucagon 1 mg 05/10/25 04:27 Glucagon Inj 1 Mg Vial IM Q15MIN PRN BG <70, and no IV access Heparin Sodium (Porcine) 2,600 unit 05/12/25 11:51 05/12/25 13:57 Heparin Sod Inj 1000 Unit/Ml Vial 10 Ml INDWELLCAT 05/26/25 11:50 2,600 unit X1 PRN Administration DIALYSIS Norepinephrine/Dextrose 8 mg in 250 mls @ 11.907 mls/hr 05/09/25 22:38 05/13/25 07:00 Levophed In D5w 8mg/250ml IV 06/08/25 22:37 0.04 mcg/kg/min .Q21H PRN 9.525 mls/hr PER PROTOCOL Titration Protocol 0.05 MCG/KG/MIN Fentanyl Citrate 2,500 mcg in 250 mls @ 2.5 mls/hr 05/10/25 04:26 05/13/25 08:35 Sublimaze Inj 2,500 Mcg/250 Ml Bag IV 05/15/25 04:25 0 mcg/hr .Q24H PRN 0 mls/hr PER PROTOCOL Titration Protocol 25 MCG/HR Cefepime HCl 2 gm/ Sodium 50 mls @ 100 mls/hr 05/10/25 09:00 05/13/25 09:04 Chloride IV 05/17/25 08:59 100 mls/hr QDAY YURY Administration Dexmedetomidine/Sodium Chloride 400 mcg in 100 mls @ 5.37 mls/hr 05/11/25 17:04 05/13/25 11:00 Precedex Ivpb IV 06/10/25 17:03 0.04 mcg/kg/hr .[id number] PRN 1 mls/hr Per PROTOCOL Titration Protocol 0.2 MCG/KG/HR Albumin Human 25 gm in 100 mls @ 100 mls/min 05/12/25 11:51 Albuminar-25 Ivpb IV 05/15/25 11:50 PRN PRN DIALYSIS Azithromycin 250 mg/ Sterile 252.5 mls @ 252.5 mls/hr 05/13/25 10:53 Water 2.5 ml/ Sodium Chloride IV 05/14/25 09:59 QDAY YURY Insulin Degludec 15 unit 05/10/25 09:00 05/13/25 10:04 Insulin Degludec 5 Unit/0.05 Ml (Per 5 Units) SC 06/09/25 08:59 15 unit QDAY YURY Administration Insulin Human Lispro 0 unit 05/10/25 12:00 05/13/25 05:36 Insulin Lispro (Admelog) 1 Unit/0.01 Ml Unit SC 06/09/25 11:59 2 unit Q6HR YURY Administration Protocol Levothyroxine Sodium 75 mcg 05/10/25 09:00 05/13/25 05:37 Levothyroxine Sodium 25 Mcg Tablet PO 06/09/25 08:59 75 mcg ACBR YURY Administration Magnesium Hydroxide 30 ml 05/10/25 04:13 Milk Of Magnesia Susp 30 Ml Udc PO 06/09/25 04:12 QDAY PRN CONSTIPATION Nitroglycerin 0.4 mg 05/10/25 04:13 Nitroglycerin 0.4 Mg Subl Btl #25 SL Q5MIN PRN CHEST PAIN Pantoprazole Sodium 40 mg 05/10/25 11:00 05/13/25 09:05 Pantoprazole Inj 40 Mg Vial IVP 06/09/25 10:59 40 mg QDAY YURY Administration Sodium Chloride 3 ml 05/09/25 22:45 05/09/25 23:39 Sodium Chloride Rt [place] 0.9% 3 Ml Nebu INH 06/08/25 22:44 3 ml PRN PRN Administration SOLN Plan Patient is 80y/o F with PMH of HFpEF, A-fib on Eliquis, bradycardia s/p pacemaker placement in 2022, hypothyroidism,chronic back pain, IDDM II, and hypertension presented to the hospital due to worsening shortness of breathe. Per ICU note, no further history was obtained from the patient from EMS. Patient has been admitted to ICU for management of septic shock and acute hypoxic respiratory failure with community acquired pneumonia. Patient has been consulted to nephrology for management of KRYSTAL on CKD and possibility of hemodialysis. #KRYSTAL on CKD #Anemia #AGMA #Lactic acidosis -Upon admission, BUN: 20, Cr:2.2 (Baseline 1.3), eGFR: 22 -Likely prerenal 2/2 sepsis, -Patient has minimal edema, lungs clear, mucus membranes moist. -CXR (05/10/2025): Severe pneumonia right lung pneumonia noted -Currently, BP: 136/67 Cr: 3.4, BUN:43, eGFR:13, pH: 7.32. Urine Output: 295ml. Plan: -Patient's Creatinine is getting better. Will hold hemodialysis for today -Will continue to monitor renal function. -Avoid nephrotoxins -Renally dose medication -Given Bumex 2mg x1 because of bilateral lower extremity swelling. #Acute encephalopathy #Septic shock 2/2 CAP #HFpEF #NSTEMI likely type II #Atrial fibrillation #IDDM II #Hx of Hypothyroidism #Subclinical hypothyroidisim #Elevated T. bili #Leukocytosis #Community-acquired pneumonia - Management per ICU team Thank you for allowing us to participate in the care of your patient. Assessment and plan discussed with my attending physician Dr. Wes Melton (PGY-1)- Internal medicine resident Attending Provider Attestation/Addendum Patient seen and examined with resident physician Dr. Melton. Note reviewed, agree with findings and recommendations. Patient currently on ventilator. Urine output very minimal. KRYSTAL secondary to ATN. Patient received conventional dialysis yesterday. Urine output started around 360 mL. Decided to hold dialysis today-give 1 dose of Bumex and watch for renal recovery. Spoke to ICU team.
[2025-05-13 11:34] LABS: Slide Review Platelets confirmed
[2025-05-13] MEDS: DEXMEDETOMIDINE 400 MCG IVPB 400 MCG/100 ML BAG 26.85 MCG IV (11:53)
[2025-05-13] MEDS: AZITHROMYCIN INJ 250 MG, Sterile Water 2.5 ML in SODIUM CHLORIDE 0.9% 250 ML 250 ML 252.5 MG IV (11:54)
--- NOTE | 2025-05-13 15:06 | PC.SS ---
Rounding Note: Patient remains intubated/sedated. Patient receiving pressor support. IV antibiotics in place. Afebrile. OG tube in place. Dr. Harvey consulting. Patient has only received 1 session of dialysis.
[2025-05-13] MEDS: Artificial Tears 225 DROP/15 ML BTL BOTH EYES (15:27)
[2025-05-14] VITALS (55 sets, daily range): BP systolic 71–141; BP diastolic 40–139; PULSE 75–119; RESP 19–33; TEMP 36.6–37.6; O2SAT 84–100
[2025-05-14] MEDS: DEXMEDETOMIDINE 400 MCG IVPB 400 MCG/100 ML BAG 37.59 MCG IV ×7 (00:30→22:00)
[2025-05-14 04:39] LABS: Base Excess -5 (-3-3); HCO3 20 mEq/L (20-26); Inspired Oxygen, FIO2 35 %; O2 Saturation 97 % (91-98); PCO2 34 mmHg (32.0-48.0); PO2 121 mmHg (83-108); pH, Arterial 7.38 (7.35-7.45)
[2025-05-14 04:43] LABS: Allen Test Not Performed; Puncture Site Arterial Line
--- NOTE | 2025-05-14 05:00 | XR_ITS ---
Examination: AP chest single view Technique one AP portable semiupright chest single view Date and time: May 14, 2025, 0509 hrs. Comparison: 05/12/2025 Indications: Hypoxic respiratory failure postintubation Findings: Extensive pneumonia right upper lobe. Mild enlargement left ventricle. Transvenous dual-chamber bipolar cardiac leads satisfactory position. Right internal jugular temporary dialysis catheter tip SVC satisfactory position. Endotracheal tube tip 5 cm above jayson. The orogastric tube is in the stomach, the tip is below the level film Impression: Significant right lung pneumonia Endotracheal tube tip 5 cm above jayson
[2025-05-14 06:02] LABS: Basophils # (Auto) 0.0 Thou/mm3 (0.0-0.2); Basophils % (Auto) 1 % (0-2.5); Eosinophils # (Auto) 0.0 Thou/mm3 (0.0-0.5); Eosinophils % (Auto) 1 % (0-10); Hematocrit 27.1 % (36.0-46.0); Immature Granulocytes Auto 0.32 Thou/mm3 (0.00-0.00); Lymphocytes # (Auto) 0.5 Thou/mm3 (1.0-4.8); Lymphocytes % (Auto) 17 % (10-50); Mean Corpuscular HGB Conc 32.1 g/dl (31.0-37.0); Mean Corpuscular Hemoglobin 30.0 pg (25.0-35.0); Mean Corpuscular Volume 93 fL (80-100); Monocytes # (Auto) 0.5 Thou/mm3 (0.0-0.8); Monocytes % (Auto) 15 % (0-12); Neutrophils # (Auto) 1.7 Thou/mm3 (1.8-7.7); Neutrophils % (Auto) 56 % (37-80); Nucleated Red Blood Cell # 0.00 Thou/mm3 (0.00-0.00); Nucleated Red Blood Cell % 0 /100 WBC (0); RDW Standard Deviation 48.9 fL (36.4-46.3); Red Blood Count 2.90 Miln/mm3 (4.00-5.20); White Blood Count 3.0 Thou/mm3 (3.6-11.0)
[2025-05-14 06:15] LABS: Hemoglobin 8.7 g/dL (12.0-16.0); Platelet Count 65 Thou/mm3 (140-440)
[2025-05-14 06:21] LABS: Anion Gap 12 (7-16); BUN/Creatinine Ratio 14 Ratio (12-20); Blood Urea Nitrogen 48 mg/dL (9-23); Calcium 8.1 mg/dL (8.3-10.6); Carbon Dioxide 19.9 mMol/L (20.0-31.0); Chloride 105 mMol/L (98-107); Creatinine (Component) 3.4 mg/dL (0.6-1.3); Estimated Creatinine Clearance 16.4 mL/min (>60); Glucose 200 mg/dL (74-106); Magnesium 2.0 mg/dL (1.6-2.6); Osmolality,Calculated 292 (275-295); Phosphorous 4.2 mg/dL (2.4-5.1); Potassium 3.2 mMol/L (3.4-5.1); Sodium 137 mMol/L (136-145); eGFR 13 See Note
[2025-05-14] MEDS: INSULIN LISPRO (AdmeLOG) 1 UNIT/0.01 ML UNIT SC ×4 (06:25→23:16)
[2025-05-14] MEDS: LEVOTHYROXINE SODIUM 25 MCG TABLET 75 MCG PO (06:26)
--- NOTE | 2025-05-14 08:17 | PD.RESPRO ---
Documentation for date of: 05/14/25 Subjective Subjective Interval history: Patient is 80y/o F with PMH of HFpEF, A-fib on Eliquis, bradycardia s/p pacemaker placement in 2022, hypothyroidism,chronic back pain, IDDM II, and hypertension presented to the hospital due to worsening shortness of breathe. Per ICU note, no further history was obtained from the patient from EMS. Patient has been admitted to ICU for management of septic shock and acute hypoxic respiratory failure with community acquired pneumonia. Patient has been consulted to nephrology for management of KRYSTAL on CKD and possibility of hemodialysis. ED course: No further history obtained from EMS, at the ED patient's BP 75/50 with heart rate of 102 and temp 105.1, labs were pH 7.29 WBC 24, creatinine 2.2, lactate 6, troponin 45, BNP 2800, Pro-Jamshid 23, and TSH of 6. ABG pH 7.29 and pCO2 of 41. CXR showed significant right lobar pneumonia with UA noted for high WBC/RBC/epithelial cells. Head CT was negative for acute findings, patient was intubated, femoral central line along with femoral arterial line were placed in ED. Patient received 3L of LR boluses, received 1 dose of ceftriaxone and azithromycin and was started on Levophed along with dobutamine. PMH: Diabetes, HFpEF, A-fib, hypothyroidism, HTN, chronic back pain PSH: Cholecystectomy, 3 back surgeries SH: Does not drink or use illicit drugs. Smoked 1 pack a day for many years , quit 3 months ago. Allergies:?sulfa Medications: amiodarone, amlodipine, eliquis, atorvastatin, bupropion, escitalopram, gabapentin, hydromorphone, Lantus, levothyroxine, Reglan, pioglitazone, trazodone, montelukast. 05/11/2025: Patient unarousable and minimally interactive. BP: 108/58 Cr: 3.6, eGFR: 12, BUN:36 pH: 7.26, Urine Output: 20ml. Continue to monitor Urine output. If no improvement, then likely hemodialysis tomorrow. 05/12/2025: Labs reviewed and patient examined at the ICU. Patient is unarousable and unable to be questioned or interact with medical providers. BP: 84/66 Cr: 4.5, BUN:46, eGFR:9, pH: 7.23. Urine Output: 30ml. Patient will receive conventional Hemodialysis today for 3 hours. CRRT is not indicated at this time. will continue to montior renal function. 05/13/2025: Labs reviewed and patient examined at the ICU. Patient is still unarousable and unable to be questioned or interact with medical providers. BP: 136/67 Cr: 3.4, BUN:43, eGFR:13, pH: 7.32. Urine Output: 295ml. Patient's Creatinine is getting better. Will hold hemodialysis for today . Given Bumex 2mg x1 because of bilateral lower extremity swelling. 05/14/2025: Labs reviewed and patient examined at the ICU. Patient continues to be in unconscious state: BP:121/55 Cr: 3.4, BUN: 48, eGFR: 13, pH:7.38, Urine Output: 1.49L.Bicarb: 19.9. Patient is continuing to good urine, Creatinine is stable. No need for hemodialysis today. Patient has low bicarb likely due to diarrhea. Given bicitrate 30ml bid PO. Given Bumex 2mg IV x1. Exam Vital Signs Temp Pulse Resp BP Pulse Ox O2 Del Method O2 Flow Rate 99.7 F 84 20 98/49 L 100 Mechanical Ventilation 35 05/14/25 04:00 05/14/25 07:16 05/12/25 13:12 05/14/25 07:16 05/14/25 07:16 05/14/25 04:31 05/12/25 08:00 FiO2 35 05/14/25 06:53 Narrative Exam General: Intubated. Unresponsive Eye: normal conjunctiva, no scleral icterus HENT: Normocephalic, atraumatic, moist oral mucosa Neck: Supple, non-tender, no JVD, no lymphadenopathy Lungs: Non-labored respirations, symmetric chest rise, Clear to auscultate bilaterally, No wheezing, rhonchi, crackles Heart: Peripheral pulses intact bilaterally, Regular Rate and Rhythm, No pitting edema of bilateral LEs. Abdomen: Soft, non-tender, non-distended, no palpable masses Musculoskeletal: No visible joint swelling, +2 bilateral lower extremity swelling. Skin: Skin is warm, dry, no rashes or lesions. Neuro:intubated, sedated Objective Labs 05/15/25 04:50 05/15/25 04:50 Labs: Laboratory Results - last 24 hr 05/13/25 05/14/25 05:14 04:18 WBC 3.0 L D RBC 2.90 L Hgb 8.7 L Hct 27.1 L MCV 93 MCH 30.0 MCHC 32.1 RDW Std Deviation 48.9 H Plt Count 65 L Neut % (Auto) 56 Lymph % (Auto) 17 [place] % (Auto) 15 H Eos % (Auto) 1 Baso % (Auto) 1 Neut # (Auto) 1.7 L Lymph # (Auto) 0.5 L [place] # (Auto) 0.5 Eos # (Auto) 0.0 Baso # (Auto) 0.0 Immature Gran # (Auto) 0.32 H Absolute Nucleated RBC 0.00 Immature Gran % 11 H Nucleated RBC % 0 Puncture Site Arterial Line ABG pH 7.38 ABG pCO2 34 ABG pO2 121 H D ABG HCO3 20 ABG O2 Saturation 97 ABG Base Excess -5 L FiO2 35 Sodium 137 Potassium 3.2 L D Chloride 105 Carbon Dioxide 19.9 L Anion Gap 12 BUN 48 H Creatinine 3.4 H Estim Creat Clear Calc 16.4 L eGFR 13 L* BUN/Creatinine Ratio 14 Glucose 200 H Calculated Osmolality 292 Calcium 8.1 L Phosphorus 4.2 Magnesium 2.0 Hepatitis A IgM Ab Non Reactive Hep Bs Antigen Non Reactive Hep Bs Antibody NonReact(Not Immune) L Hep B Core IgM Ab Non Reactive Hepatitis C Antibody Non Reactive Misc Test Result Platelets confirmed ABG Interpretation ABG results: 05/09/25 05/10/25 05/11/25 23:08 07:18 03:56 ABG pH 7.29 L 7.25 L 7.26 L ABG pCO2 41 49 H 41 ABG pO2 133 H 95 D 68 L D ABG HCO3 20 21 19 L ABG O2 Saturation 97 95 92 ABG Base Excess -7 L -6 L -8 L 05/12/25 05/13/25 05/14/25 04:09 04:02 04:18 ABG pH 7.23 L 7.32 L 7.38 ABG pCO2 44 43 34 ABG pO2 78 L 71 L 121 H D ABG HCO3 19 L 22 20 ABG O2 Saturation 94 92 97 ABG Base Excess -8 L -4 L -5 L Quality Measures Quality Measures VTE prophylaxis, sepsis Current suspected stage: sepsis Possible source: pulmonary Blood cultures ordered: yes Antibiotic ordered: Yes and none Advance care planning discussed with:: patient and other Assessment & Plan Assessment Current Active Medications: Generic Name Dose Route Start Last Admin Trade Name Freq PRN Reason Stop Dose Admin Acetaminophen 650 mg 05/10/25 04:13 05/10/25 21:34 Acetaminophen 325 Mg Tablet PO 06/09/25 04:12 650 mg Q4HR PRN Administration PAIN SCALE 1-3 (mild Acetaminophen 650 mg 05/10/25 04:13 Acetaminophen Supp 650 Mg Supp [place] 06/09/25 04:12 Q4HR PRN PAIN SCALE 1-3 (mild Al Hydrox/Mg Hydrox/Simethicone 30 ml 05/10/25 04:13 Mg Hyd/Al Hyd/Jackeline (Maalox Reg) Susp 30 Ml Udc PO 06/09/25 04:12 Q4HR PRN Heartburn or Upset Stomach Amiodarone HCl 200 mg 05/10/25 09:00 05/13/25 09:04 Amiodarone Hcl 200 Mg Tablet PO 06/09/25 08:59 200 mg QDAY YURY Administration Apixaban 2.5 mg 05/10/25 09:00 05/10/25 20:14 Apixaban 2.5 Mg Tablet PO 06/09/25 08:59 2.5 mg On Hold: 05/11/25 08:01 BID YURY Administration Artificial Tears 0 drop 05/13/25 14:52 05/13/25 15:27 Artificial Tears 225 Drop/15 Ml Btl BOTH EYES 06/12/25 14:51 2 drops PRN PRN Administration TO KEEP EYES MOIST Citric Acid/Sodium Citrate 30 ml 05/14/25 09:00 Citric Acid/Sodium Citr 15 Ml Udc (Bicitra) NG 06/13/25 08:59 BID YURY Dextrose 25 ml 05/10/25 04:27 Dextrose 50%-Water Inj 50 Ml Syringe IV 06/09/25 04:26 Q15MIN PRN BG 50-70 responsive npo pt Dextrose 50 ml 05/10/25 04:27 Dextrose 50%-Water Inj 50 Ml Syringe IV 06/09/25 04:26 Q15MIN PRN BG <50 OR BG <70 & pt unresponsive Escitalopram Oxalate 20 mg 05/10/25 09:00 05/13/25 09:04 Escitalopram Oxalate 10 Mg Tablet PO 06/09/25 08:59 20 mg QDAY YURY Administration Glucagon 1 mg 05/10/25 04:27 Glucagon Inj 1 Mg Vial IM Q15MIN PRN BG <70, and no IV access Heparin Sodium (Porcine) 2,600 unit 05/12/25 11:51 05/12/25 13:57 Heparin Sod Inj 1000 Unit/Ml Vial 10 Ml INDWELLCAT 05/26/25 11:50 2,600 unit X1 PRN Administration DIALYSIS Norepinephrine/Dextrose 8 mg in 250 mls @ 11.907 mls/hr 05/09/25 22:38 05/13/25 20:35 Levophed In D5w 8mg/250ml IV 06/08/25 22:37 0 mcg/kg/min .Q21H PRN 0 mls/hr PER PROTOCOL Titration Protocol 0.05 MCG/KG/MIN Fentanyl Citrate 2,500 mcg in 250 mls @ 2.5 mls/hr 05/10/25 04:26 05/13/25 08:35 Sublimaze Inj 2,500 Mcg/250 Ml Bag IV 05/15/25 04:25 0 mcg/hr .Q24H PRN 0 mls/hr PER PROTOCOL Titration Protocol 25 MCG/HR Cefepime HCl 2 gm/ Sodium 50 mls @ 100 mls/hr 05/10/25 09:00 05/13/25 09:04 Chloride IV 05/17/25 08:59 100 mls/hr QDAY YURY Administration Dexmedetomidine/Sodium Chloride 400 mcg in 100 mls @ 5.37 mls/hr 05/11/25 17:04 05/14/25 07:13 Precedex Ivpb IV 06/10/25 17:03 1.4 mcg/kg/hr .[id number] PRN 37.59 mls/hr Per PROTOCOL Administration Protocol 0.2 MCG/KG/HR Albumin Human 25 gm in 100 mls @ 100 mls/min 05/12/25 11:51 Albuminar-25 Ivpb IV 05/15/25 11:50 PRN PRN DIALYSIS Azithromycin 250 mg/ Sterile 252.5 mls @ 252.5 mls/hr 05/13/25 10:53 05/13/25 11:54 Water 2.5 ml/ Sodium Chloride IV 05/14/25 09:59 252.5 mls/hr QDAY YURY Administration Potassium Chloride 20 meq in 100 mls @ 50 mls/hr 05/14/25 07:29 Kcl Ivpb IV 05/14/25 09:28 X1 ONE Potassium Chloride 20 meq in 100 mls @ 50 mls/hr 05/14/25 09:30 Kcl Ivpb IV 05/14/25 11:29 X1 ONE Protocol Insulin Degludec 15 unit 05/10/25 09:00 05/13/25 10:04 Insulin Degludec 5 Unit/0.05 Ml (Per 5 Units) SC 06/09/25 08:59 15 unit QDAY YURY Administration Insulin Human Lispro 0 unit 05/10/25 12:00 05/14/25 06:25 Insulin Lispro (Admelog) 1 Unit/0.01 Ml Unit SC 06/09/25 11:59 1 unit Q6HR YURY Administration Protocol Levothyroxine Sodium 75 mcg 05/10/25 09:00 05/14/25 06:26 Levothyroxine Sodium 25 Mcg Tablet PO 06/09/25 08:59 75 mcg ACBR YURY Administration Magnesium Hydroxide 30 ml 05/10/25 04:13 Milk Of Magnesia Susp 30 Ml Udc PO 06/09/25 04:12 QDAY PRN CONSTIPATION Nitroglycerin 0.4 mg 05/10/25 04:13 Nitroglycerin 0.4 Mg Subl Btl #25 SL Q5MIN PRN CHEST PAIN Pantoprazole Sodium 40 mg 05/10/25 11:00 05/13/25 09:05 Pantoprazole Inj 40 Mg Vial IVP 06/09/25 10:59 40 mg QDAY YURY Administration Sodium Chloride 3 ml 05/09/25 22:45 05/09/25 23:39 Sodium Chloride Rt [place] 0.9% 3 Ml Nebu INH 06/08/25 22:44 3 ml PRN PRN Administration SOLN Plan Patient is 80y/o F with PMH of HFpEF, A-fib on Eliquis, bradycardia s/p pacemaker placement in 2022, hypothyroidism,chronic back pain, IDDM II, and hypertension presented to the hospital due to worsening shortness of breathe. Per ICU note, no further history was obtained from the patient from EMS. Patient has been admitted to ICU for management of septic shock and acute hypoxic respiratory failure with community acquired pneumonia. Patient has been consulted to nephrology for management of KRYSTAL on CKD and possibility of hemodialysis. #KRYSTAL on CKD #Anemia #AGMA #Lactic acidosis -Upon admission, BUN: 20, Cr:2.2 (Baseline 1.3), eGFR: 22 -Likely prerenal 2/2 sepsis, -Patient has minimal edema, lungs clear, mucus membranes moist. -CXR (05/10/2025): Severe pneumonia right lung pneumonia noted -Currently, BP:121/55 Cr: 3.4, BUN: 48, eGFR: 13, pH:7.38, Urine Output: 1.49L.Bicarb: 19.9. . Plan: -Patient is continuing to good urine, Creatinine is stable. No need for hemodialysis today. -Will continue to monitor renal function. -Avoid nephrotoxins -Renally dose medication -Patient has low bicarb likely due to diarrhea. Given bicitrate 30ml bid PO. -Given Bumex 2mg x1 because of bilateral lower extremity swelling. #Acute encephalopathy #Septic shock 2/2 CAP #HFpEF #NSTEMI likely type II #Atrial fibrillation #IDDM II #Hx of Hypothyroidism #Subclinical hypothyroidisim #Elevated T. bili #Leukocytosis #Community-acquired pneumonia - Management per ICU team Thank you for allowing us to participate in the care of your patient. Assessment and plan discussed with my attending physician Dr. Wes Melton (PGY-1)- Internal medicine resident Attending Provider Attestation/Addendum Patient seen and examined with resident physician Dr. Melton. Note reviewed, agree with findings and recommendations. Patient currently on ventilator. Urine output started to improve-Bumex ordered. KRYSTAL secondary to ATN. watch for renal recovery. Spoke to ICU team.
[2025-05-14] MEDS: ESCITALOPRAM OXALATE 10 MG TABLET 20 MG PO (08:24)
[2025-05-14] MEDS: AZITHROMYCIN INJ 250 MG, Sterile Water 2.5 ML in SODIUM CHLORIDE 0.9% 250 ML 250 ML 252.5 MG IV (08:25)
[2025-05-14] MEDS: CITRIC ACID/SODIUM CITR 15 ML UDC (BICITRA) 30 ML NG ×2 (08:25→20:10)
[2025-05-14] MEDS: CEFEPIME INJ 2 GM in SODIUM CHLORIDE 0.9% (Popper) 50 ML IV (08:25)
[2025-05-14] MEDS: BUMETANIDE INJ 0.25 MG/ML VIAL 4 ML 2 MG IVP (08:26)
[2025-05-14] MEDS: INSULIN DEGLUDEC 5 UNIT/0.05 ML (PER 5 UNITS) 15 UNIT SC (08:27)
[2025-05-14] MEDS: AMIODARONE HCL 200 MG TABLET PO (08:32)
[2025-05-14] MEDS: POTASSIUM CHL 20 mEq IVPB 20 MEQ/100 ML BAG 50 MEQ IV ×2 (08:32→11:43)
[2025-05-14] MEDS: fentaNYL CIT INJ 50 mCg/ML AMP 2ML IVP ×3 (09:53→21:51)
[2025-05-14 12:08] LABS: Slide Review Platelets confirmed
--- NOTE | 2025-05-14 12:09 | PD.RESPRO ---
Documentation for date of: 05/14/25 Subjective Subjective Interval history: 80 year-old female with PMHx noted for HFpEF, A-fib on Eliquis, bradycardia s/p pacemaker placement in 2022, hypothyroidism,chronic back pain, IDDM II, and hypertension was brought in from home by ambulance for complaints of worsening shortness of breath. No further history obtained from EMS, at the ED patient's BP 75/50 with heart rate of 102 and temp 105.1, labs were pH 7.29 WBC 24, creatinine 2.2, lactate 6, troponin 45, BNP 2800, Pro-Jamshid 23, and TSH of 6. ABG pH 7.29 and pCO2 of 41. CXR showed significant right lobar pneumonia with UA noted for high WBC/RBC/epithelial cells. Head CT was negative for acute findings, patient was intubated, femoral central line along with femoral arterial line were placed in ED. Patient received 3L of LR boluses, received 1 dose of ceftriaxone and azithromycin and was started on Levophed along with dobutamine. Patient will be admitted to ICU for further management and care of septic shock along with acute hypoxic respiratory failure in setting of community-acquired pneumonia. Interval History 05/10/25: Patient was examined at bedside; she is currently intubated and chemically induced on fentanyl drip to maintain RASS score -2 for mechanical ventilation. Current plan is to continue IV NS maintenance @ 100 mL/hr, IV cefepime 2 gm qD (started 05/10 @ 09:00) and IV Zithromax 250 mg qD (started 05/10 @ 09:00) for treatment of her community-acquired pneumonia, follow up on sputum culture to guide antibiotic de-escalation, and continue PO Cordarone 200 mg qD and PO Eliquis 2.5 mg BID (both started 05/10 @ 09:00) for treatment of her atrial fibrillation. Of note, patient's endotracheal tube was somehow dislodged today and required readjustment via bronchoscope to return the tube to its proper position. Will continue to monitor patient as her pneumonia is treated (including the performance of daily awakening trials) with the hope that resolution of the infection will remove her state of septic shock and ongoing acute hypoxic respiratory failure (disposition condition requires successful weaning off of ventilatory support and pressors). 05/11/2025: Overnight patient was given magnesium sulfate 4 g IV x 1. Ventilator on AC MV, VT 400, RR 20, PEEP 5, FiO2 40%. On fentanyl infusion, RASS -2. Input 2976, output 20 cc, balance +2956 cc. Patient responsive to noxious stimuli but RASS appears closer to -3, will wean sedation. Labs showed NA 138, K4.1, bicarb 19.4, BUN 36, CR 3.6, Phos 5.5. ABG pH 7.26, pCO2 41. Blood and sputum cultures pending, sputum Gram stain grew 4 plus GPC preliminary. Currently on Levophed infusion, titrating as necessary. Today will give 500 cc normal saline IVF bolus for fluid challenge. If urine output does not improve, will consult nephrology for possible urgent hemodialysis. 05/12/2025: Overnight sedation was weaned, no other events. Input 1165, output 0 cc. Patient remains intubated and mechanically ventilated, RASS -2 on fentanyl and Precedex infusion. Labs showed Hb 9.7, WBC 15.9, BUN 46, CR 4.5. Right lower extremity arterial duplex showed severe right leg obstructive PAD. Today we will place temporary dialysis catheter and plan for low rate dialysis as per nephrology recommendations. 05/13/2025: No events overnight. Input 1306, output 4 5, balance +901 cc. This morning patient remains on Precedex infusion with a RASS of -1. Norepinephrine infusion was turned off overnight as well as fentanyl infusion. ABG showed pH 7.32, pCO2 43. Hb 9.4, PLT 79, K3.7, Mg 1.8, BUN 43, CR 3.4. Will continue with daily SAT's and give patient a break on pressure support for 2 hours today. No plans for extubation as yet as patient's neurological status is still unable to be assessed due to residual sedation. Bumex 2 Mg IV x 1 as per nephrology recommendations. HD will also be held today as per nephrology. 05/14/2025: Overnight patient was switched between volume control and spontaneous ventilation. Input 3120, output 1419, balance 1630. Patient remains on low-dose Precedex and following commands labs showed WBC 3, Hb 8.7, PLT 65, K3.2, bicarb 19 point, BUN 48, CR 3.4. KCl 40 mEq IV x 1, Bicitra 30 mL GT twice daily and Bumex 2 Mg IV x 1 given as per nephrology recommendation. No hemodialysis today Exam Vital Signs Temp Pulse Resp BP Pulse Ox O2 Del Method O2 Flow Rate 99.3 F 90 20 117/62 100 Mechanical Ventilation 35 05/14/25 08:00 05/14/25 12:04 05/12/25 13:12 05/14/25 12:04 05/14/25 12:04 05/14/25 08:00 05/12/25 08:00 FiO2 35 05/14/25 12:04 Narrative Exam Constitutional Sedated and mechanically ventilated HEENT PERRL. Patent nares. Trachea midline Respiratory Chest normal on inspection and clear auscultation bilaterally, reduced air entry at bases. Right IJ temp dialysis catheter noted. Exit site clean Cardiovascular S1 and S2 audible, RRR. No murmurs carotid bruit. No gross JVD. Abdominal Soft, obese and non tender to palpation in all quadrants. BS +. Left femoral central line and arterial line noted. Exit site clean Genitourinary No bladder tenderness, no flank pain. Normal to palpation Musculoskeletal Extremities tone within normal limits. 2+ lower extremity edema up to hips bilaterally Neurological Sedated on mechanically ventilated Skin Bluish discoloration of great toe, 2nd, 3rd and 4th toes on right foot. Absent dorsalis pedis and posterior tibial pulse on right leg. Objective Labs 05/14/25 04:18 05/14/25 04:18 Labs: Laboratory Results - last 24 hr 05/14/25 04:18 WBC 3.0 L D RBC 2.90 L Hgb 8.7 L Hct 27.1 L MCV 93 MCH 30.0 MCHC 32.1 RDW Std Deviation 48.9 H Plt Count 65 L Neut % (Auto) 56 Lymph % (Auto) 17 [place] % (Auto) 15 H Eos % (Auto) 1 Baso % (Auto) 1 Neut # (Auto) 1.7 L Lymph # (Auto) 0.5 L [place] # (Auto) 0.5 Eos # (Auto) 0.0 Baso # (Auto) 0.0 Immature Gran # (Auto) 0.32 H Absolute Nucleated RBC 0.00 Immature Gran % 11 H Nucleated RBC % 0 Puncture Site Arterial Line ABG pH 7.38 ABG pCO2 34 ABG pO2 121 H D ABG HCO3 20 ABG O2 Saturation 97 ABG Base Excess -5 L FiO2 35 Sodium 137 Potassium 3.2 L D Chloride 105 Carbon Dioxide 19.9 L Anion Gap 12 BUN 48 H Creatinine 3.4 H Estim Creat Clear Calc 16.4 L eGFR 13 L* BUN/Creatinine Ratio 14 Glucose 200 H Calculated Osmolality 292 Calcium 8.1 L Phosphorus 4.2 Magnesium 2.0 Misc Test Result Platelets confirmed ABG Interpretation ABG results: 05/09/25 05/10/25 05/11/25 23:08 07:18 03:56 ABG pH 7.29 L 7.25 L 7.26 L ABG pCO2 41 49 H 41 ABG pO2 133 H 95 D 68 L D ABG HCO3 20 21 19 L ABG O2 Saturation 97 95 92 ABG Base Excess -7 L -6 L -8 L 05/12/25 05/13/25 05/14/25 04:09 04:02 04:18 ABG pH 7.23 L 7.32 L 7.38 ABG pCO2 44 43 34 ABG pO2 78 L 71 L 121 H D ABG HCO3 19 L 22 20 ABG O2 Saturation 94 92 97 ABG Base Excess -8 L -4 L -5 L Quality Measures Quality Measures VTE prophylaxis, sepsis Current suspected stage: ruled out Possible source: pulmonary Blood cultures ordered: yes Antibiotic ordered: Yes and none Advance care planning discussed with:: significant other Assessment & Plan Assessment Current Active Medications: Generic Name Dose Route Start Last Admin Trade Name Freq PRN Reason Stop Dose Admin Acetaminophen 650 mg 05/10/25 04:13 05/10/25 21:34 Acetaminophen 325 Mg Tablet PO 06/09/25 04:12 650 mg Q4HR PRN Administration PAIN SCALE 1-3 (mild Acetaminophen 650 mg 05/10/25 04:13 Acetaminophen Supp 650 Mg Supp [place] 06/09/25 04:12 Q4HR PRN PAIN SCALE 1-3 (mild Al Hydrox/Mg Hydrox/Simethicone 30 ml 05/10/25 04:13 Mg Hyd/Al Hyd/Jackeline (Maalox Reg) Susp 30 Ml Udc PO 06/09/25 04:12 Q4HR PRN Heartburn or Upset Stomach Amiodarone HCl 200 mg 05/10/25 09:00 05/14/25 08:32 Amiodarone Hcl 200 Mg Tablet PO 06/09/25 08:59 200 mg QDAY YURY Administration Apixaban 2.5 mg 05/10/25 09:00 05/10/25 20:14 Apixaban 2.5 Mg Tablet PO 06/09/25 08:59 2.5 mg On Hold: 05/11/25 08:01 BID YURY Administration Artificial Tears 0 drop 05/13/25 14:52 05/13/25 15:27 Artificial Tears 225 Drop/15 Ml Btl BOTH EYES 06/12/25 14:51 2 drops PRN PRN Administration TO KEEP EYES MOIST Citric Acid/Sodium Citrate 30 ml 05/14/25 09:00 05/14/25 08:25 Citric Acid/Sodium Citr 15 Ml Udc (Bicitra) NG 06/13/25 08:59 30 ml BID YURY Administration Dextrose 25 ml 05/10/25 04:27 Dextrose 50%-Water Inj 50 Ml Syringe IV 06/09/25 04:26 Q15MIN PRN BG 50-70 responsive npo pt Dextrose 50 ml 05/10/25 04:27 Dextrose 50%-Water Inj 50 Ml Syringe IV 06/09/25 04:26 Q15MIN PRN BG <50 OR BG <70 & pt unresponsive Escitalopram Oxalate 20 mg 05/10/25 09:00 05/14/25 08:24 Escitalopram Oxalate 10 Mg Tablet PO 06/09/25 08:59 20 mg QDAY YURY Administration Glucagon 1 mg 05/10/25 04:27 Glucagon Inj 1 Mg Vial IM Q15MIN PRN BG <70, and no IV access Heparin Sodium (Porcine) 2,600 unit 05/12/25 11:51 05/12/25 13:57 Heparin Sod Inj 1000 Unit/Ml Vial 10 Ml INDWELLCAT 05/26/25 11:50 2,600 unit X1 PRN Administration DIALYSIS Norepinephrine/Dextrose 8 mg in 250 mls @ 11.907 mls/hr 05/09/25 22:38 05/13/25 20:35 Levophed In D5w 8mg/250ml IV 06/08/25 22:37 0 mcg/kg/min .Q21H PRN 0 mls/hr PER PROTOCOL Titration Protocol 0.05 MCG/KG/MIN Fentanyl Citrate 2,500 mcg in 250 mls @ 2.5 mls/hr 05/10/25 04:26 05/13/25 08:35 Sublimaze Inj 2,500 Mcg/250 Ml Bag IV 05/15/25 04:25 0 mcg/hr .Q24H PRN 0 mls/hr PER PROTOCOL Titration Protocol 25 MCG/HR Cefepime HCl 2 gm/ Sodium 50 mls @ 100 mls/hr 05/10/25 09:00 05/14/25 08:25 Chloride IV 05/17/25 08:59 100 mls/hr QDAY YURY Administration Dexmedetomidine/Sodium Chloride 400 mcg in 100 mls @ 5.37 mls/hr 05/11/25 17:04 05/14/25 11:35 Precedex Ivpb IV 06/10/25 17:03 1.4 mcg/kg/hr .[id number] PRN 37.59 mls/hr Per PROTOCOL Titration Protocol 0.2 MCG/KG/HR Albumin Human 25 gm in 100 mls @ 100 mls/min 05/12/25 11:51 Albuminar-25 Ivpb IV 05/15/25 11:50 PRN PRN DIALYSIS Insulin Degludec 15 unit 05/10/25 09:00 05/14/25 08:27 Insulin Degludec 5 Unit/0.05 Ml (Per 5 Units) SC 06/09/25 08:59 15 unit QDAY YURY Administration Insulin Human Lispro 0 unit 05/10/25 12:00 05/14/25 11:59 Insulin Lispro (Admelog) 1 Unit/0.01 Ml Unit SC 06/09/25 11:59 4 unit Q6HR YURY Administration Protocol Levothyroxine Sodium 75 mcg 05/10/25 09:00 05/14/25 06:26 Levothyroxine Sodium 25 Mcg Tablet PO 06/09/25 08:59 75 mcg ACBR YURY Administration Magnesium Hydroxide 30 ml 05/10/25 04:13 Milk Of Magnesia Susp 30 Ml Udc PO 06/09/25 04:12 QDAY PRN CONSTIPATION Nitroglycerin 0.4 mg 05/10/25 04:13 Nitroglycerin 0.4 Mg Subl Btl #25 SL Q5MIN PRN CHEST PAIN Pantoprazole Sodium 40 mg 05/10/25 11:00 05/14/25 08:23 Pantoprazole Inj 40 Mg Vial IVP 06/09/25 10:59 40 mg QDAY YURY Administration Sodium Chloride 3 ml 05/09/25 22:45 05/09/25 23:39 Sodium Chloride Rt [place] 0.9% 3 Ml Nebu INH 06/08/25 22:44 3 ml PRN PRN Administration SOLN Plan 80 year-old female with PMHx noted for HFpEF, A-fib on Eliquis, bradycardia s/p pacemaker placement in 2022, hypothyroidism,chronic back pain, IDDM II, and hypertension admitted to ICU for further management and care of septic shock along with acute hypoxic respiratory failure in setting of community-acquired pneumonia. She is currently intubated and chemically induced on fentanyl drip to maintain RASS score -2 for mechanical ventilation. Current plan is to continue IV NS maintenance @ 100 mL/hr, IV cefepime 2 gm qD (started 05/10 @ 09:00) and IV Zithromax 250 mg qD (started 05/10 @ 09:00) for treatment of her community-acquired pneumonia, follow up on sputum culture to guide antibiotic de-escalation, and continue PO Cordarone 200 mg qD and PO Eliquis 2.5 mg BID (both started 05/10 @ 09:00) for treatment of her atrial fibrillation. Of note, patient's endotracheal tube was somehow dislodged today and required readjustment via bronchoscope to return the tube to its proper position. Will continue to monitor patient as her pneumonia is treated (including the performance of daily awakening trials) with the hope that resolution of the infection will remove her state of septic shock and ongoing acute hypoxic respiratory failure (disposition condition requires successful weaning off of ventilatory support and pressors). [employer]IST: Acute metablic encephalopathy - resolving Chemical sedation Rx: Continue Precedex to maintain RASS of 0 Rx: Daily SAT's CVS: Septic shock 2/2 CAP?resolving HFpEF NSTEMI likely type II Troponins downtrended to 0.388 on 05/10 @ 10:15, previously 0.640 on 05/10 @04:47 Rx: Patient received IVF per sepsis protocol. Titrate norepinephrine to maintain MAP greater than 65 Strict I's and O's Repeat echo ordered Atrial fibrillation Patient noted to be in sinus tachycardia. Continue home PO Cordarone 200 mg qD (started 05/10 @ 09:00) Eliquis held Peripheral arterial disease Patient noted to have reduced pulses on right leg. Toes on right foot appear blue Dx: Right lower extremity arterial duplex ultrasound showed severe obstructive PAD. No flow posterior tibial artery. Rx: For outpatient follow-up once patient gets over this acute phase of her illness. PULM: Acute hypoxic respiratory failure secondary to community-acquired pneumonia - resolved Secondary to septic shock and HFpEF Intubated and mechanically ventilated Maintained on O2 saturation> 90% RRX: Daily SBT Renal: KRYSTAL on CKD Hypokalemia NAGMA DDx:Prerenal KRYSTAL in setting of septic shock Patient given IVF per sepsis protocol Rx: Avoid nephrotoxic agents. For HD as per nephrology. RRx: - KCL 40meqIV x 1 - Bicitra 30ml GT BIO - follow-up renal panel and monitor urine output. - Nephrology, Dr. Harvey consulted, appreciate recommendations Endocrine IDDM II Patient on 30 units of insulin glargine daily at home along with regular insulin Rx: Continue 15 units of degludec daily. Continue insulin sliding scale Hx of Hypothyroidism Continue Home levothyroxine TSH elevated at 6 with normal FT4 Likely elevated in setting of acute illness Maintain current levothyroxine dose and follow-up outpatient. GI: Elevated T. bili Insetting of septic shock, continue to trend Heme: Leukocytosis?resolving In setting of septic shock/community-acquired pneumonia Dx: WBC 24.2 ? > 20.5 -> 15.9 -> 8.3 -> 3 Rx: Monitor CBC Thrombocytopenia DDx: sepsis, ckd Rx: monitor for signs of bleeding and cbc ID: Community-acquired pneumonia Dx: Pending blood and sputum cultures. Sputum Gram stain grew 4+ GPC preliminary Rx:-IV cefepime 2 gm qD (started 05/10 @ 09:00) -IV Zithromax 250 mg qD (started 05/10 -05/14) Skin: No active issues ICU Health maintenance: Dispo: Mechanical ventillation, IV antibiotics Diet: Tube feeds as per dietitian DVT ppx: SCDs GI ppx: Protonix 40mg qD Mechanical ventilattion: Yes, Mode: SIMV Sedation: Yes, Precedex (RAAS - 2) IV lines: 2 pIV Central line: Yes [Left femoral on 05/10 and RIJ on 05/12 Arterial line: No Mena: Yes (started 05/10 - Code status: FULL CODE Plan of care discussed with Attending Dr. Sabino Eason MD PGY 2 Disclaimer: This note was dictated by speech recognition. Minor errors in sider may be present due to voice recognition software. Attending Provider Attestation/Addendum Patient seen and examined with above resident, Jaren Eason MD. I agree with the findings, assessment, and plan of care as document except for any differences below. Patient continues to improve from a hemodynamic and infection control perspective. Her septic shock continues to clear with appropriate antibiotic regimen. Culture data showing Enterobacter in the urine as well as strep pneumonia infection from the lung. She remains on cefepime alone which is adequate coverage. Patient's gas exchange appears to have improved though she did not tolerate spontaneous breathing trial likely due to extended period of pressure support overnight and inadequate rest. Patient transition to pressure control with adequate tidal volumes and lung protective ventilation. Patient restarted on just Precedex for adequate discomfort. She was following commands this morning before resumption of the drip. Patient's family updated at bedside on plan of care with likely prolonged weaning secondary to delayed metabolism of sedation early on in her ICU stay. Patient also with right lower extremity ischemia advanced without reduction in flow based on CT imaging but likely chronic peripheral vascular disease for further perpetuated by vasopressor requirements earlier warranting ICU stay. Continue to monitor for signs of worsening ischemia. Patient does not have dopplerable pulses but remains not a surgical candidate at this point. Should there be continued worsening then the patient will require surgical evaluation for definitive decision on whether intervention is warranted. Plan to rechallenge the patient with spontaneous breathing trial tomorrow with sedation off and assess for ability to successfully wean. Patient also continues to have improvement in urine output with plan to continue to monitor for need for repeat hemodialysis. She does have a right IJ Vas-Cath in place in case of repeat renal replacement therapy. Arterial catheter was removed and patient now only has single line. Mena remains in place and she is on appropriate VTE prophylaxis with apixaban and PPI. Total critical care time: I personally spent 35 minutes for review of physiologic parameters, directing plan of care throughout today, coordination of care with other specialties and counseling patient's family at bedside. This is exclusive of time spent teaching of staff or performing a separate billable procedures. Patient remains at significant risk for further morbidity and mortality warranting close monitoring and care when available in the ICU. Critical care services required for strep pneumonia/right upper lobe pneumonia, Enterobacter [place] urinary tract infection, septic shock, acute metabolic encephalopathy, acute renal failure.
[2025-05-14 13:25] LABS: Base Excess -4 (-3-3); HCO3 21 mEq/L (20-26); Inspired Oxygen, FIO2 35 %; O2 Saturation 98 % (91-98); PCO2 33 mmHg (32.0-48.0); PO2 113 mmHg (83-108); pH, Arterial 7.41 (7.35-7.45)
[2025-05-14 13:33] LABS: Allen Test Performed/OK; Puncture Site Right Radial
--- NOTE | 2025-05-14 13:38 | PC.SS ---
Update: Patient remains intubated/sedated. Tube feedings in place. Patient is not receiving pressor support. Patient is afebrile. Nephorology is consulting, Dr. Muir. Patient has only received 1 session of dialysis.
[2025-05-14] MEDS: DEXMEDETOMIDINE 400 MCG IVPB 400 MCG/100 ML BAG 26.85 MCG IV ×2 (16:04→19:00)
[2025-05-15] VITALS (38 sets, daily range): BP systolic 113–181; BP diastolic 46–126; PULSE 74–145; RESP 20–27; TEMP 36.5–37; O2SAT 92–100; BMI 42.7
[2025-05-15] MEDS: DEXMEDETOMIDINE 400 MCG IVPB 400 MCG/100 ML BAG 37.59 MCG IV (00:30)
[2025-05-15] MEDS: DEXMEDETOMIDINE 400 MCG IVPB 400 MCG/100 ML BAG 32.22 MCG IV (03:00)
[2025-05-15 04:33] LABS: Base Excess -2 (-3-3); HCO3 23 mEq/L (20-26); Inspired Oxygen, FIO2 21 %; O2 Saturation 82 % (91-98); PCO2 40 mmHg (32.0-48.0); pH, Arterial 7.38 (7.35-7.45)
[2025-05-15 04:35] LABS: Allen Test Performed/OK; Puncture Site Right Radial
[2025-05-15 04:36] LABS: PO2 48 mmHg (83-108)
[2025-05-15] MEDS: INSULIN LISPRO (AdmeLOG) 1 UNIT/0.01 ML UNIT SC ×3 (05:13→17:28)
[2025-05-15] MEDS: LEVOTHYROXINE SODIUM 25 MCG TABLET 75 MCG PO (05:13)
[2025-05-15 05:22] LABS: Allen Test Performed/OK; Base Excess -2 (-3-3); HCO3 23 mEq/L (20-26); Inspired Oxygen, FIO2 21 %; O2 Saturation 98 % (91-98); PCO2 35 mmHg (32.0-48.0); PO2 89 mmHg (83-108); Puncture Site Right Radial; pH, Arterial 7.41 (7.35-7.45)
[2025-05-15 05:42] LABS: Basophils # (Auto) 0.0 Thou/mm3 (0.0-0.2); Basophils % (Auto) 0 % (0-2.5); Eosinophils # (Auto) 0.0 Thou/mm3 (0.0-0.5); Eosinophils % (Auto) 1 % (0-10); Hematocrit 24.6 % (36.0-46.0); Immature Granulocytes Auto 0.58 Thou/mm3 (0.00-0.00); Lymphocytes # (Auto) 1.0 Thou/mm3 (1.0-4.8); Lymphocytes % (Auto) 13 % (10-50); Mean Corpuscular HGB Conc 32.5 g/dl (31.0-37.0); Mean Corpuscular Hemoglobin 30.0 pg (25.0-35.0); Mean Corpuscular Volume 92 fL (80-100); Monocytes # (Auto) 1.0 Thou/mm3 (0.0-0.8); Monocytes % (Auto) 12 % (0-12); Neutrophils # (Auto) 5.1 Thou/mm3 (1.8-7.7); Neutrophils % (Auto) 66 % (37-80); Nucleated Red Blood Cell # 0.03 Thou/mm3 (0.00-0.00); Nucleated Red Blood Cell % 0 /100 WBC (0); Platelet Count 81 Thou/mm3 (140-440); RDW Standard Deviation 48.4 fL (36.4-46.3); Red Blood Count 2.67 Miln/mm3 (4.00-5.20); White Blood Count 7.7 Thou/mm3 (3.6-11.0)
[2025-05-15 05:45] LABS: Hemoglobin 8.0 g/dL (12.0-16.0)
[2025-05-15] MEDS: DEXMEDETOMIDINE 400 MCG IVPB 400 MCG/100 ML BAG 26.85 MCG IV ×3 (06:00→21:30)
[2025-05-15 06:06] LABS: Anion Gap 9 (7-16); BUN/Creatinine Ratio 14 Ratio (12-20); Blood Urea Nitrogen 44 mg/dL (9-23); Calcium 8.1 mg/dL (8.3-10.6); Carbon Dioxide 22.6 mMol/L (20.0-31.0); Chloride 105 mMol/L (98-107); Creatinine (Component) 3.2 mg/dL (0.6-1.3); Estimated Creatinine Clearance 17.6 mL/min (>60); Glucose 307 mg/dL (74-106); Magnesium 1.8 mg/dL (1.6-2.6); Osmolality,Calculated 297 (275-295); Phosphorous 3.1 mg/dL (2.4-5.1); Potassium 3.6 mMol/L (3.4-5.1); Sodium 137 mMol/L (136-145); eGFR 14 See Note
[2025-05-15] MEDS: POTASSIUM CHL 20 mEq IVPB 20 MEQ/100 ML BAG 50 MEQ IV (07:21)
[2025-05-15] MEDS: Magnesium Sulfate 2 GM Ivpb 2 GM/50 ML BAG IV (07:21)
[2025-05-15] MEDS: CEFEPIME INJ 2 GM in SODIUM CHLORIDE 0.9% (Popper) 50 ML IV (08:21)
[2025-05-15] MEDS: CITRIC ACID/SODIUM CITR 15 ML UDC (BICITRA) 30 ML NG ×2 (08:21→20:59)
[2025-05-15] MEDS: AMIODARONE HCL 200 MG TABLET PO (08:22)
[2025-05-15] MEDS: ESCITALOPRAM OXALATE 10 MG TABLET 20 MG PO (08:22)
[2025-05-15] MEDS: INSULIN DEGLUDEC 5 UNIT/0.05 ML (PER 5 UNITS) 15 UNIT SC (08:28)
--- NOTE | 2025-05-15 08:28 | ESPR_ITS ---
Documentation for date of: 05/15/25 Subjective Subjective Interval history: Patient is 80y/o F with PMH of HFpEF, A-fib on Eliquis, bradycardia s/p pacemaker placement in 2022, hypothyroidism,chronic back pain, IDDM II, and hypertension presented to the hospital due to worsening shortness of breathe. Per ICU note, no further history was obtained from the patient from EMS. Patient has been admitted to ICU for management of septic shock and acute hypoxic respiratory failure with community acquired pneumonia. Patient has been consulted to nephrology for management of KRYSTAL on CKD and possibility of hemodialysis. ED course: No further history obtained from EMS, at the ED patient's BP 75/50 with heart rate of 102 and temp 105.1, labs were pH 7.29 WBC 24, creatinine 2.2, lactate 6, troponin 45, BNP 2800, Pro-Jamshid 23, and TSH of 6. ABG pH 7.29 and pCO2 of 41. CXR showed significant right lobar pneumonia with UA noted for high WBC/RBC/epithelial cells. Head CT was negative for acute findings, patient was intubated, femoral central line along with femoral arterial line were placed in ED. Patient received 3L of LR boluses, received 1 dose of ceftriaxone and azithromycin and was started on Levophed along with dobutamine. PMH: Diabetes, HFpEF, A-fib, hypothyroidism, HTN, chronic back pain PSH: Cholecystectomy, 3 back surgeries SH: Does not drink or use illicit drugs. Smoked 1 pack a day for many years , quit 3 months ago. Allergies:?sulfa Medications: amiodarone, amlodipine, eliquis, atorvastatin, bupropion, escitalopram, gabapentin, hydromorphone, Lantus, levothyroxine, Reglan, pioglitazone, trazodone, montelukast. 05/11/2025: Patient unarousable and minimally interactive. BP: 108/58 Cr: 3.6, eGFR: 12, BUN:36 pH: 7.26, Urine Output: 20ml. Continue to monitor Urine output. If no improvement, then likely hemodialysis tomorrow. 05/12/2025: Labs reviewed and patient examined at the ICU. Patient is unarousable and unable to be questioned or interact with medical providers. BP: 84/66 Cr: 4.5, BUN:46, eGFR:9, pH: 7.23. Urine Output: 30ml. Patient will receive conventional Hemodialysis today for 3 hours. CRRT is not indicated at this time. will continue to montior renal function. 05/13/2025: Labs reviewed and patient examined at the ICU. Patient is still unarousable and unable to be questioned or interact with medical providers. BP: 136/67 Cr: 3.4, BUN:43, eGFR:13, pH: 7.32. Urine Output: 295ml. Patient's Creatinine is getting better. Will hold hemodialysis for today . Given Bumex 2mg x1 because of bilateral lower extremity swelling. 05/14/2025: Labs reviewed and patient examined at the ICU. Patient continues to be in unconscious state: BP:121/55 Cr: 3.4, BUN: 48, eGFR: 13, pH:7.38, Urine Output: 1.49L.Bicarb: 19.9. Patient is continuing to good urine, Creatinine is stable. No need for hemodialysis today. Patient has low bicarb likely due to diarrhea. Given bicitrate 30ml bid PO. Given Bumex 2mg IV x1. 05/15/2025: Labs reviewed and patient examined at the ICU. Patient continues to be in unconscious state. BP: 125/46, Cr: 3.2, BUN: 44, eGFR: 14. ABG pH: 7.41, Urine output: 990ml. Patient is continuing to good urine, Creatinine is stable. No need for hemodialysis. Continue to monitor renal function. Exam Vital Signs Temp Pulse Resp BP Pulse Ox O2 Del Method O2 Flow Rate 98.6 F 97 20 133/80 H 100 Mechanical Ventilation 35 05/15/25 07:00 05/15/25 08:00 05/12/25 13:12 05/15/25 08:00 05/15/25 08:00 05/14/25 08:00 05/12/25 08:00 FiO2 30 05/15/25 07:58 Narrative Exam General: Intubated. Unresponsive Eye: normal conjunctiva, no scleral icterus HENT: Normocephalic, atraumatic, moist oral mucosa Neck: Supple, non-tender, no JVD, no lymphadenopathy Lungs: Non-labored respirations, symmetric chest rise, Clear to auscultate bilaterally, No wheezing, rhonchi, crackles Heart: Peripheral pulses intact bilaterally, Regular Rate and Rhythm, No pitting edema of bilateral LEs. Abdomen: Soft, non-tender, non-distended, no palpable masses Musculoskeletal: No visible joint swelling, +1 bilateral lower extremity swelling. Skin: Skin is warm, dry, no rashes or lesions. Neuro:intubated, sedated Objective Labs 05/15/25 04:50 05/15/25 04:50 Labs: Laboratory Results - last 24 hr 05/14/25 05/14/25 05/15/25 04:18 13:15 04:14 WBC RBC Hgb Hct MCV MCH MCHC RDW Std Deviation Plt Count Neut % (Auto) Lymph % (Auto) [place] % (Auto) Eos % (Auto) Baso % (Auto) Neut # (Auto) Lymph # (Auto) [place] # (Auto) Eos # (Auto) Baso # (Auto) Immature Gran # (Auto) Absolute Nucleated RBC Immature Gran % Nucleated RBC % Puncture Site Right Radial Right Radial ABG pH 7.41 7.38 ABG pCO2 33 40 ABG pO2 113 H 48 L* D ABG HCO3 21 23 ABG O2 Saturation 98 82 L ABG Base Excess -4 L -2 FiO2 35 21 Sodium Potassium Chloride Carbon Dioxide Anion Gap BUN Creatinine Estim Creat Clear Calc eGFR BUN/Creatinine Ratio Glucose Calculated Osmolality Calcium Phosphorus Magnesium Misc Test Result Platelets confirmed 05/15/25 05/15/25 04:50 05:10 WBC 7.7 D RBC 2.67 L Hgb 8.0 L Hct 24.6 L MCV 92 MCH 30.0 MCHC 32.5 RDW Std Deviation 48.4 H Plt Count 81 L D Neut % (Auto) 66 Lymph % (Auto) 13 [place] % (Auto) 12 Eos % (Auto) 1 Baso % (Auto) 0 Neut # (Auto) 5.1 Lymph # (Auto) 1.0 [place] # (Auto) 1.0 H Eos # (Auto) 0.0 Baso # (Auto) 0.0 Immature Gran # (Auto) 0.58 H Absolute Nucleated RBC 0.03 H Immature Gran % 8 H Nucleated RBC % 0 Puncture Site Right Radial ABG pH 7.41 ABG pCO2 35 ABG pO2 89 D ABG HCO3 23 ABG O2 Saturation 98 ABG Base Excess -2 FiO2 21 Sodium 137 Potassium 3.6 Chloride 105 Carbon Dioxide 22.6 Anion Gap 9 BUN 44 H Creatinine 3.2 H Estim Creat Clear Calc 17.6 L eGFR 14 L* BUN/Creatinine Ratio 14 Glucose 307 H D Calculated Osmolality 297 H Calcium 8.1 L Phosphorus 3.1 Magnesium 1.8 Misc Test Result ABG Interpretation ABG results: 05/09/25 05/10/25 05/11/25 23:08 07:18 03:56 ABG pH 7.29 L 7.25 L 7.26 L ABG pCO2 41 49 H 41 ABG pO2 133 H 95 D 68 L D ABG HCO3 20 21 19 L ABG O2 Saturation 97 95 92 ABG Base Excess -7 L -6 L -8 L 05/12/25 05/13/25 05/14/25 04:09 04:02 04:18 ABG pH 7.23 L 7.32 L 7.38 ABG pCO2 44 43 34 ABG pO2 78 L 71 L 121 H D ABG HCO3 19 L 22 20 ABG O2 Saturation 94 92 97 ABG Base Excess -8 L -4 L -5 L 05/14/25 05/15/25 05/15/25 13:15 04:14 05:10 ABG pH 7.41 7.38 7.41 ABG pCO2 33 40 35 ABG pO2 113 H 48 L* D 89 D ABG HCO3 21 23 23 ABG O2 Saturation 98 82 L 98 ABG Base Excess -4 L -2 -2 Quality Measures Quality Measures VTE prophylaxis, sepsis Current suspected stage: sepsis Possible source: pulmonary Blood cultures ordered: yes Antibiotic ordered: Yes and none Advance care planning discussed with:: patient and other Assessment & Plan Assessment Current Active Medications: Generic Name Dose Route Start Last Admin Trade Name Freq PRN Reason Stop Dose Admin Acetaminophen 650 mg 05/10/25 04:13 05/10/25 21:34 Acetaminophen 325 Mg Tablet PO 06/09/25 04:12 650 mg Q4HR PRN Administration PAIN SCALE 1-3 (mild Acetaminophen 650 mg 05/10/25 04:13 Acetaminophen Supp 650 Mg Supp WA 06/09/25 04:12 Q4HR PRN PAIN SCALE 1-3 (mild Al Hydrox/Mg Hydrox/Simethicone 30 ml 05/10/25 04:13 Mg Hyd/Al Hyd/Jackeline (Maalox Reg) Susp 30 Ml Udc PO 06/09/25 04:12 Q4HR PRN Heartburn or Upset Stomach Amiodarone HCl 200 mg 05/10/25 09:00 05/14/25 08:32 Amiodarone Hcl 200 Mg Tablet PO 06/09/25 08:59 200 mg QDAY YURY Administration Apixaban 2.5 mg 05/10/25 09:00 05/10/25 20:14 Apixaban 2.5 Mg Tablet PO 06/09/25 08:59 2.5 mg On Hold: 05/11/25 08:01 BID YURY Administration Artificial Tears 0 drop 05/13/25 14:52 05/13/25 15:27 Artificial Tears 225 Drop/15 Ml Btl BOTH EYES 06/12/25 14:51 2 drops PRN PRN Administration TO KEEP EYES MOIST Citric Acid/Sodium Citrate 30 ml 05/14/25 09:00 05/14/25 20:10 Citric Acid/Sodium Citr 15 Ml Udc (Bicitra) NG 06/13/25 08:59 30 ml BID YURY Administration Dextrose 25 ml 05/10/25 04:27 Dextrose 50%-Water Inj 50 Ml Syringe IV 06/09/25 04:26 Q15MIN PRN BG 50-70 responsive npo pt Dextrose 50 ml 05/10/25 04:27 Dextrose 50%-Water Inj 50 Ml Syringe IV 06/09/25 04:26 Q15MIN PRN BG <50 OR BG <70 & pt unresponsive Escitalopram Oxalate 20 mg 05/10/25 09:00 05/14/25 08:24 Escitalopram Oxalate 10 Mg Tablet PO 06/09/25 08:59 20 mg QDAY YURY Administration Glucagon 1 mg 05/10/25 04:27 Glucagon Inj 1 Mg Vial IM Q15MIN PRN BG <70, and no IV access Heparin Sodium (Porcine) 2,600 unit 05/12/25 11:51 05/12/25 13:57 Heparin Sod Inj 1000 Unit/Ml Vial 10 Ml INDWELLCAT 05/26/25 11:50 2,600 unit X1 PRN Administration DIALYSIS Norepinephrine/Dextrose 8 mg in 250 mls @ 11.907 mls/hr 05/09/25 22:38 05/13/25 20:35 Levophed In D5w 8mg/250ml IV 06/08/25 22:37 0 mcg/kg/min .Q21H PRN 0 mls/hr PER PROTOCOL Titration Protocol 0.05 MCG/KG/MIN Cefepime HCl 2 gm/ Sodium 50 mls @ 100 mls/hr 05/10/25 09:00 05/14/25 08:25 Chloride IV 05/17/25 08:59 100 mls/hr QDAY YURY Administration Dexmedetomidine/Sodium Chloride 400 mcg in 100 mls @ 5.37 mls/hr 05/11/25 17:04 05/15/25 06:00 Precedex Ivpb IV 06/10/25 17:03 1 mcg/kg/hr .[id number] PRN 26.85 mls/hr Per PROTOCOL Administration Protocol 0.2 MCG/KG/HR Albumin Human 25 gm in 100 mls @ 100 mls/min 05/12/25 11:51 Albuminar-25 Ivpb IV 05/15/25 11:50 PRN PRN DIALYSIS Magnesium Sulfate 2 gm in 50 mls @ 25 mls/hr 05/15/25 07:09 05/15/25 07:21 Magnesium Sulfate Ivpb IV 05/15/25 09:08 25 mls/hr X1 ONE Administration Potassium Chloride 20 meq in 100 mls @ 50 mls/hr 05/15/25 07:10 05/15/25 07:21 Kcl Ivpb IV 05/15/25 09:09 50 mls/hr X1 ONE Administration Insulin Degludec 15 unit 05/10/25 09:00 05/14/25 08:27 Insulin Degludec 5 Unit/0.05 Ml (Per 5 Units) SC 06/09/25 08:59 15 unit QDAY YURY Administration Insulin Human Lispro 0 unit 05/10/25 12:00 05/15/25 05:13 Insulin Lispro (Admelog) 1 Unit/0.01 Ml Unit SC 06/09/25 11:59 4 unit Q6HR YURY Administration Protocol Levothyroxine Sodium 75 mcg 05/10/25 09:00 05/15/25 05:13 Levothyroxine Sodium 25 Mcg Tablet PO 06/09/25 08:59 75 mcg ACBR YURY Administration Magnesium Hydroxide 30 ml 05/10/25 04:13 Milk Of Magnesia Susp 30 Ml Udc PO 06/09/25 04:12 QDAY PRN CONSTIPATION Nitroglycerin 0.4 mg 05/10/25 04:13 Nitroglycerin 0.4 Mg Subl Btl #25 SL Q5MIN PRN CHEST PAIN Pantoprazole Sodium 40 mg 05/10/25 11:00 05/14/25 08:23 Pantoprazole Inj 40 Mg Vial IVP 06/09/25 10:59 40 mg QDAY YURY Administration Sodium Chloride 3 ml 05/09/25 22:45 05/09/25 23:39 Sodium Chloride Rt [place] 0.9% 3 Ml Nebu INH 06/08/25 22:44 3 ml PRN PRN Administration SOLN Plan Patient is 80y/o F with PMH of HFpEF, A-fib on Eliquis, bradycardia s/p pacemaker placement in 2022, hypothyroidism,chronic back pain, IDDM II, and hypertension presented to the hospital due to worsening shortness of breathe. Per ICU note, no further history was obtained from the patient from EMS. Patient has been admitted to ICU for management of septic shock and acute hypoxic respiratory failure with community acquired pneumonia. Patient has been consulted to nephrology for management of KRYSTAL on CKD and possibility of hemodialysis. #KRYSTAL on CKD #Anemia #AGMA #Lactic acidosis -Upon admission, BUN: 20, Cr:2.2 (Baseline 1.3), eGFR: 22 -Likely prerenal 2/2 sepsis, -Patient has minimal edema, lungs clear, mucus membranes moist. -CXR (05/10/2025): Severe pneumonia right lung pneumonia noted -Currently, BP: 125/46, Cr: 3.2, BUN: 44, eGFR: 14. ABG pH: 7.41 Plan: -Patient is continuing to good urine, Creatinine is stable. No need for hemodialysis today. -Will continue to monitor renal function. -Avoid nephrotoxins -Renally dose medication #Acute encephalopathy #Septic shock 2/2 CAP #HFpEF #NSTEMI likely type II #Atrial fibrillation #IDDM II #Hx of Hypothyroidism #Subclinical hypothyroidisim #Elevated T. bili #Leukocytosis #Community-acquired pneumonia - Management per ICU team Thank you for allowing us to participate in the care of your patient. Assessment and plan discussed with my attending physician Dr. Wes Melton (PGY-1)- Internal medicine resident Attending Provider Attestation/Addendum Patient seen and examined with resident physician Dr. Melton. Note reviewed, agree with findings and recommendations. Patient currently on ventilator. Urine output started to improve with Bumex. Clinically looks euvolemic. Hold Bumex today. KRYSTAL secondary to ATN. watch for renal recovery. Creatinine 3.2 Spoke to ICU team.
[2025-05-15] MEDS: HEPARIN SOD INJ 5000 UNIT/ML VIAL SC ×2 (09:25→21:02)
--- NOTE | 2025-05-15 09:25 | ESPR_ITS ---
<Statement entered by Barry Cochran MD - 05/15/25 13:24> TOTAL CC TIME: 45 MIN I saw and evaluated the patient. I reviewed the resident?s note and agree with findings and plan as documented in the resident?s note. Upon my evaluation, this patient had a high probability of imminent or life- threatening deterioration due to persistent resp failure, which required my direct attention, intervention, and personal management. This time is exclusive of time spent on procedures, which are documented separately if performed. abx will be completed tomorrow still remains unable to be liberated to PSV - will attempt again precedex increased due to agitation - fentanyl prn restarted cont full support Documentation for date of: 05/15/25 Subjective Subjective Interval history: 80 year-old female with PMHx noted for HFpEF, A-fib on Eliquis, bradycardia s/p pacemaker placement in 2022, hypothyroidism,chronic back pain, IDDM II, and hypertension was brought in from home by ambulance for complaints of worsening shortness of breath. No further history obtained from EMS, at the ED patient's BP 75/50 with heart rate of 102 and temp 105.1, labs were pH 7.29 WBC 24, creatinine 2.2, lactate 6, troponin 45, BNP 2800, Pro-Jamshid 23, and TSH of 6. ABG pH 7.29 and pCO2 of 41. CXR showed significant right lobar pneumonia with UA noted for high WBC/RBC/epithelial cells. Head CT was negative for acute findings, patient was intubated, femoral central line along with femoral arterial line were placed in ED. Patient received 3L of LR boluses, received 1 dose of ceftriaxone and azithromycin and was started on Levophed along with dobutamine. Patient will be admitted to ICU for further management and care of septic shock along with acute hypoxic respiratory failure in setting of community-acquired pneumonia. Interval History 05/10/25: Patient was examined at bedside; she is currently intubated and chemically induced on fentanyl drip to maintain RASS score -2 for mechanical ventilation. Current plan is to continue IV NS maintenance @ 100 mL/hr, IV cefepime 2 gm qD (started 05/10 @ 09:00) and IV Zithromax 250 mg qD (started 05/10 @ 09:00) for treatment of her community-acquired pneumonia, follow up on sputum culture to guide antibiotic de-escalation, and continue PO Cordarone 200 mg qD and PO Eliquis 2.5 mg BID (both started 05/10 @ 09:00) for treatment of her atrial fibrillation. Of note, patient's endotracheal tube was somehow dislodged today and required readjustment via bronchoscope to return the tube to its proper position. Will continue to monitor patient as her pneumonia is treated (including the performance of daily awakening trials) with the hope that resolution of the infection will remove her state of septic shock and ongoing acute hypoxic respiratory failure (disposition condition requires successful weaning off of ventilatory support and pressors). 05/11/2025: Overnight patient was given magnesium sulfate 4 g IV x 1. Ventilator on AC MV, VT 400, RR 20, PEEP 5, FiO2 40%. On fentanyl infusion, RASS -2. Input 2976, output 20 cc, balance +2956 cc. Patient responsive to noxious stimuli but RASS appears closer to -3, will wean sedation. Labs showed NA 138, K4.1, bicarb 19.4, BUN 36, CR 3.6, Phos 5.5. ABG pH 7.26, pCO2 41. Blood and sputum cultures pending, sputum Gram stain grew 4 plus GPC preliminary. Currently on Levophed infusion, titrating as necessary. Today will give 500 cc normal saline IVF bolus for fluid challenge. If urine output does not improve, will consult nephrology for possible urgent hemodialysis. 05/12/2025: Overnight sedation was weaned, no other events. Input 1165, output 0 cc. Patient remains intubated and mechanically ventilated, RASS -2 on fentanyl and Precedex infusion. Labs showed Hb 9.7, WBC 15.9, BUN 46, CR 4.5. Right lower extremity arterial duplex showed severe right leg obstructive PAD. Today we will place temporary dialysis catheter and plan for low rate dialysis as per nephrology recommendations. 05/13/2025: No events overnight. Input 1306, output 4 5, balance +901 cc. This morning patient remains on Precedex infusion with a RASS of -1. Norepinephrine infusion was turned off overnight as well as fentanyl infusion. ABG showed pH 7.32, pCO2 43. Hb 9.4, PLT 79, K3.7, Mg 1.8, BUN 43, CR 3.4. Will continue with daily SAT's and give patient a break on pressure support for 2 hours today. No plans for extubation as yet as patient's neurological status is still unable to be assessed due to residual sedation. Bumex 2 Mg IV x 1 as per nephrology recommendations. HD will also be held today as per nephrology. 05/14/2025: Overnight patient was switched between volume control and spontaneous ventilation. Input 3120, output 1419, balance 1630. Patient remains on low- dose Precedex and following commands labs showed WBC 3, Hb 8.7, PLT 65, K3.2, bicarb 19 point, BUN 48, CR 3.4. KCl 40 mEq IV x 1, Bicitra 30 mL GT twice daily and Bumex 2 Mg IV x 1 given as per nephrology recommendation. No hemodialysis today 05/15/2025: Overnight patient's alternated between volume control and pressure support ventilation due to vent dyssynchrony. 2258 cc, output 990 cc, balance +1268 cc. This morning patient was on low-dose Precedex but responds to noxious stimuli. Blood glucose between 200?3 100s in past 24 hours. Labs showed Hb 8, PLT 81, NA 137, K3.6, HCO3 22.6, BUN 44, CR 3.2, Mg 1.8. Sputum culture grew strep pneumonia pansensitive to all tested antibiotics. Will continue to hold on hemodialysis as per nephrology recommendations and Bicitra for 1 more day. Repleted with KCl 20 mEq IV x 1, magnesium sulfate 2 g IV x 1 and de-escalated antibiotics to ceftriaxone 1 g IV daily. Increased insulin degludec to 18 units daily and switch to insulin correction scale 3. Will attempt SBT today after SAT. Also will remove femoral central line. Exam Vital Signs Temp Pulse Resp BP Pulse Ox O2 Del Method O2 Flow Rate 98.6 F 101 H 20 133/80 H 100 Mechanical Ventilation 35 05/15/25 07:00 05/15/25 08:22 05/12/25 13:12 05/15/25 08:22 05/15/25 08:00 05/14/25 08:00 05/12/25 08:00 FiO2 30 05/15/25 07:58 Narrative Exam Constitutional GCS 10 T [E4, VT, M6] HEENT PERRL. Patent nares. Trachea midline Respiratory Chest normal on inspection and clear auscultation bilaterally, reduced air entry at bases. Right IJ temp dialysis catheter noted. Exit site clean Cardiovascular S1 and S2 audible, RRR. No murmurs carotid bruit. No gross JVD. Abdominal Soft, obese and non tender to palpation in all quadrants. BS +. Left femoral central line noted. Exit site clean Genitourinary No bladder tenderness, no flank pain. Normal to palpation Musculoskeletal Extremities tone within normal limits. 1+ lower extremity edema up to tibial tuberosity bilaterally Neurological Cranial nerves II to XII grossly intact. Skin Bluish discoloration of great toe, 2nd, 3rd and 4th toes on right foot. Absent dorsalis pedis and posterior tibial pulse on right leg. Objective Labs 05/15/25 04:50 05/15/25 04:50 Labs: Laboratory Results - last 24 hr 05/14/25 05/14/25 05/15/25 04:18 13:15 04:14 WBC RBC Hgb Hct MCV MCH MCHC RDW Std Deviation Plt Count Neut % (Auto) Lymph % (Auto) [place] % (Auto) Eos % (Auto) Baso % (Auto) Neut # (Auto) Lymph # (Auto) [place] # (Auto) Eos # (Auto) Baso # (Auto) Immature Gran # (Auto) Absolute Nucleated RBC Immature Gran % Nucleated RBC % Puncture Site Right Radial Right Radial ABG pH 7.41 7.38 ABG pCO2 33 40 ABG pO2 113 H 48 L* D ABG HCO3 21 23 ABG O2 Saturation 98 82 L ABG Base Excess -4 L -2 FiO2 35 21 Sodium Potassium Chloride Carbon Dioxide Anion Gap BUN Creatinine Estim Creat Clear Calc eGFR BUN/Creatinine Ratio Glucose Calculated Osmolality Calcium Phosphorus Magnesium Misc Test Result Platelets confirmed 05/15/25 05/15/25 04:50 05:10 WBC 7.7 D RBC 2.67 L Hgb 8.0 L Hct 24.6 L MCV 92 MCH 30.0 MCHC 32.5 RDW Std Deviation 48.4 H Plt Count 81 L D Neut % (Auto) 66 Lymph % (Auto) 13 [place] % (Auto) 12 Eos % (Auto) 1 Baso % (Auto) 0 Neut # (Auto) 5.1 Lymph # (Auto) 1.0 [place] # (Auto) 1.0 H Eos # (Auto) 0.0 Baso # (Auto) 0.0 Immature Gran # (Auto) 0.58 H Absolute Nucleated RBC 0.03 H Immature Gran % 8 H Nucleated RBC % 0 Puncture Site Right Radial ABG pH 7.41 ABG pCO2 35 ABG pO2 89 D ABG HCO3 23 ABG O2 Saturation 98 ABG Base Excess -2 FiO2 21 Sodium 137 Potassium 3.6 Chloride 105 Carbon Dioxide 22.6 Anion Gap 9 BUN 44 H Creatinine 3.2 H Estim Creat Clear Calc 17.6 L eGFR 14 L* BUN/Creatinine Ratio 14 Glucose 307 H D Calculated Osmolality 297 H Calcium 8.1 L Phosphorus 3.1 Magnesium 1.8 Misc Test Result ABG Interpretation ABG results: 05/09/25 05/10/25 05/11/25 23:08 07:18 03:56 ABG pH 7.29 L 7.25 L 7.26 L ABG pCO2 41 49 H 41 ABG pO2 133 H 95 D 68 L D ABG HCO3 20 21 19 L ABG O2 Saturation 97 95 92 ABG Base Excess -7 L -6 L -8 L 05/12/25 05/13/25 05/14/25 04:09 04:02 04:18 ABG pH 7.23 L 7.32 L 7.38 ABG pCO2 44 43 34 ABG pO2 78 L 71 L 121 H D ABG HCO3 19 L 22 20 ABG O2 Saturation 94 92 97 ABG Base Excess -8 L -4 L -5 L 05/14/25 05/15/25 05/15/25 13:15 04:14 05:10 ABG pH 7.41 7.38 7.41 ABG pCO2 33 40 35 ABG pO2 113 H 48 L* D 89 D ABG HCO3 21 23 23 ABG O2 Saturation 98 82 L 98 ABG Base Excess -4 L -2 -2 Quality Measures Quality Measures VTE prophylaxis, sepsis Current suspected stage: ruled out Possible source: pulmonary Blood cultures ordered: yes Antibiotic ordered: Yes and none Advance care planning discussed with:: patient Assessment & Plan Assessment Current Active Medications: Generic Name Dose Route Start Last Admin Trade Name Freq PRN Reason Stop Dose Admin Acetaminophen 650 mg 05/10/25 04:13 05/10/25 21:34 Acetaminophen 325 Mg Tablet PO 06/09/25 04:12 650 mg Q4HR PRN Administration PAIN SCALE 1-3 (mild Acetaminophen 650 mg 05/10/25 04:13 Acetaminophen Supp 650 Mg Supp HI 06/09/25 04:12 Q4HR PRN PAIN SCALE 1-3 (mild Al Hydrox/Mg Hydrox/Simethicone 30 ml 05/10/25 04:13 Mg Hyd/Al Hyd/Jackeline (Maalox Reg) Susp 30 Ml Udc PO 06/09/25 04:12 Q4HR PRN Heartburn or Upset Stomach Amiodarone HCl 200 mg 05/10/25 09:00 05/15/25 08:22 Amiodarone Hcl 200 Mg Tablet PO 06/09/25 08:59 200 mg QDAY YURY Administration Artificial Tears 0 drop 05/13/25 14:52 05/13/25 15:27 Artificial Tears 225 Drop/15 Ml Btl BOTH EYES 06/12/25 14:51 2 drops PRN PRN Administration TO KEEP EYES MOIST Citric Acid/Sodium Citrate 30 ml 05/14/25 09:00 05/15/25 08:21 Citric Acid/Sodium Citr 15 Ml Udc (Bicitra) NG 06/13/25 08:59 30 ml BID YURY Administration Dextrose 25 ml 05/10/25 04:27 Dextrose 50%-Water Inj 50 Ml Syringe IV 06/09/25 04:26 Q15MIN PRN BG 50-70 responsive npo pt Dextrose 50 ml 05/10/25 04:27 Dextrose 50%-Water Inj 50 Ml Syringe IV 06/09/25 04:26 Q15MIN PRN BG <50 OR BG <70 & pt unresponsive Escitalopram Oxalate 20 mg 05/10/25 09:00 05/15/25 08:22 Escitalopram Oxalate 10 Mg Tablet PO 06/09/25 08:59 20 mg QDAY YURY Administration Glucagon 1 mg 05/10/25 04:27 Glucagon Inj 1 Mg Vial IM Q15MIN PRN BG <70, and no IV access Heparin Sodium (Porcine) 2,600 unit 05/12/25 11:51 05/12/25 13:57 Heparin Sod Inj 1000 Unit/Ml Vial 10 Ml INDWELLCAT 05/26/25 11:50 2,600 unit X1 PRN Administration DIALYSIS Heparin Sodium (Porcine) 5,000 unit 05/15/25 09:00 Heparin Sod Inj 5000 Unit/Ml Vial SC 05/29/25 08:59 Q8HR YURY Norepinephrine/Dextrose 8 mg in 250 mls @ 11.907 mls/hr 05/09/25 22:38 05/13/25 20:35 Levophed In D5w 8mg/250ml IV 06/08/25 22:37 0 mcg/kg/min .Q21H PRN 0 mls/hr PER PROTOCOL Titration Protocol 0.05 MCG/KG/MIN Cefepime HCl 2 gm/ Sodium 50 mls @ 100 mls/hr 05/10/25 09:00 05/15/25 08:21 Chloride IV 05/17/25 08:59 100 mls/hr QDAY YURY Administration Dexmedetomidine/Sodium Chloride 400 mcg in 100 mls @ 5.37 mls/hr 05/11/25 17:04 05/15/25 06:00 Precedex Ivpb IV 06/10/25 17:03 1 mcg/kg/hr .[id number] PRN 26.85 mls/hr Per PROTOCOL Administration Protocol 0.2 MCG/KG/HR Albumin Human 25 gm in 100 mls @ 100 mls/min 05/12/25 11:51 Albuminar-25 Ivpb IV 05/15/25 11:50 PRN PRN DIALYSIS Insulin Degludec 18 unit 05/16/25 09:00 Insulin Degludec 5 Unit/0.05 Ml (Per 5 Units) SC 06/15/25 08:59 QDAY YURY Insulin Human Lispro 0 unit 05/15/25 12:00 Insulin Lispro (Admelog) 1 Unit/0.01 Ml Unit SC 06/09/25 11:59 Q6HR YURY Protocol Levothyroxine Sodium 75 mcg 05/10/25 09:00 05/15/25 05:13 Levothyroxine Sodium 25 Mcg Tablet PO 06/09/25 08:59 75 mcg ACBR YURY Administration Magnesium Hydroxide 30 ml 05/10/25 04:13 Milk Of Magnesia Susp 30 Ml Udc PO 06/09/25 04:12 QDAY PRN CONSTIPATION Nitroglycerin 0.4 mg 05/10/25 04:13 Nitroglycerin 0.4 Mg Subl Btl #25 SL Q5MIN PRN CHEST PAIN Pantoprazole Sodium 40 mg 05/10/25 11:00 05/15/25 08:23 Pantoprazole Inj 40 Mg Vial IVP 06/09/25 10:59 40 mg QDAY YURY Administration Sodium Chloride 3 ml 05/09/25 22:45 05/09/25 23:39 Sodium Chloride Rt [place] 0.9% 3 Ml Nebu INH 06/08/25 22:44 3 ml PRN PRN Administration SOLN Plan 80 year-old female with PMHx noted for HFpEF, A-fib on Eliquis, bradycardia s/p pacemaker placement in 2022, hypothyroidism,chronic back pain, IDDM II, and hypertension admitted to ICU for further management and care of septic shock along with acute hypoxic respiratory failure in setting of community-acquired pneumonia. She is currently intubated and chemically induced on fentanyl drip to maintain RASS score -2 for mechanical ventilation. Current plan is to continue IV NS maintenance @ 100 mL/hr, IV cefepime 2 gm qD (started 05/10 @ 09:00) and IV Zithromax 250 mg qD (started 05/10 @ 09:00) for treatment of her community- acquired pneumonia, follow up on sputum culture to guide antibiotic de- escalation, and continue PO Cordarone 200 mg qD and PO Eliquis 2.5 mg BID (both started 05/10 @ 09:00) for treatment of her atrial fibrillation. Of note, patient's endotracheal tube was somehow dislodged today and required readjustment via bronchoscope to return the tube to its proper position. Will continue to monitor patient as her pneumonia is treated (including the performance of daily awakening trials) with the hope that resolution of the infection will remove her state of septic shock and ongoing acute hypoxic respiratory failure (disposition condition requires successful weaning off of ventilatory support and pressors). DIRECTOR OF MATERIALS MANAGEMENT: Acute metablic encephalopathy - resolved Chemical sedation Rx: Will completely discontinue Precedex infusion today. RRx: If patient fails SBT, will resume low-dose Precedex. CVS: HFpEF [EF 50-55%] Dx: - 05/10 TTE: Mild LVH. Estimated EF at 50-55%. There is grade I diastolic dysfunction. The RV size is mildy increased with normal systolic function. Huertas sign present. Rx: ?Will resume GDMT once patient is off of sedation Atrial fibrillation?paroxysmal Dx: -From telemetry review patient is in sinus rhythm with rates between 80s?100s overnight ? [id number]: 9 points [12.2% stroke risk per year] Has bled 4 points [high risk of major bleeding] Rx:- Continue home PO Cordarone 200 mg qD (started 05/10 @ 09:00) Peripheral arterial disease Patient noted to have reduced pulses on right leg. Toes on right foot appear blue Dx: Right lower extremity arterial duplex ultrasound showed severe obstructive PAD. No flow posterior tibial artery. Rx: For outpatient follow-up once patient gets over this acute phase of her illness. PULM: Acute hypoxic respiratory failure secondary to community-acquired pneumonia - resolving Dx:ABG showed pH 7.41, pCO2 35. Saturating 100% on 35% FiO2 Rx: Currently on pressure support ventilation to allow for higher tidal volume as patient is now recovering from pneumonia. RRX: Daily SBT Renal: KRYSTAL on CKD NAGMA?resolved DDx:Prerenal KRYSTAL in setting of septic shock, ATN Rx: -Avoid nephrotoxic agents. ?To continue Bicitra 30 mL p.o. twice daily for 1 more day as per nephrology recommendations ? No hemodialysis today as per nephrology recommendations. - Nephrology, Dr. Harvey consulted, appreciate recommendations RRx: - follow-up renal panel and monitor urine output. Endocrine IDDM II Patient on 30 units of insulin glargine daily at home along with regular insulin Blood glucose were between 200s?300s in past 24 hours. Rx: -Increased insulin degludec to 18 units SC daily ? Increased insulin correction scale to step 3 RRx: To monitor blood glucose and titrate insulin accordingly Hx of Hypothyroidism Dx: TSH elevated at 6 with normal FT4 Rx: Continue home medication levothyroxine 75 mcg p.o. AC BR GI: Tube feeds Rx: Continue as per dietitian recommendations. Heme: Chronic normocytic anemia DDx: Anemia of chronic disease, CKD Dx: Hb 8 Rx: Continue to monitor CBC. Thrombocytopenia DDx: sepsis, ckd Dx: Plt 81 Rx: monitor for signs of bleeding and cbc ID: Community-acquired pneumonia Dx: - sputum culture growing strep pneumonia Rx: -Received 6 days of cefepime 2 g IV qD (started 05/10-05/15) -Received 5 days of azithromycin 250 mg IV daily (started 05/10 -05/14) - Started on ceftriaxone 1 g IV daily on [05/15? Skin: No active issues ICU Health maintenance: Dispo: Mechanical ventillation, IV antibiotics Diet: Tube feeds as per dietitian DVT ppx: SCDs GI ppx: Protonix 40mg qD Mechanical ventilattion: Yes, Mode: Pressure support Sedation: Yes, Precedex (RAAS - 2) IV lines: 2 pIV Central line: Yes [Left femoral on 05/10-05/15 and RIJ on 05/12- Arterial line: No Mena: Yes (started 05/10 - Code status: FULL CODE Plan of care discussed with Attending Dr. Sammie Eason MD PGY 2 Disclaimer: This note was dictated by speech recognition. Minor errors in foreign service teacher may be present due to voice recognition software.
[2025-05-15] MEDS: INSULIN DEGLUDEC 5 UNIT/0.05 ML (PER 5 UNITS) 3 UNIT SC (09:26)
[2025-05-15] MEDS: DEXMEDETOMIDINE 400 MCG IVPB 400 MCG/100 ML BAG 21.48 MCG IV (14:43)
--- NOTE | 2025-05-15 15:26 | PC.SS ---
Update: Patient remains intubated/sedated. NG tube in place for feedings. Patient is afebrile. Nephrology is consulting.
[2025-05-15] MEDS: METOPROLOL TARTRATE INJ 1 MG/ML AMP 5 ML 5 MG IVP (17:17)
[2025-05-16] VITALS (40 sets, daily range): BP systolic 130–197; BP diastolic 65–136; PULSE 89–127; RESP 22–28; TEMP 36.4–37; O2SAT 97–100; BMI 42.7
[2025-05-16] MEDS: INSULIN LISPRO (AdmeLOG) 1 UNIT/0.01 ML UNIT SC ×4 (00:06→18:09)
[2025-05-16] MEDS: DEXMEDETOMIDINE 400 MCG IVPB 400 MCG/100 ML BAG 26.85 MCG IV ×3 (00:40→07:42)
[2025-05-16 04:18] LABS: Allen Test Performed/OK; Base Excess 0 (-3-3); HCO3 24 mEq/L (20-26); Inspired Oxygen, FIO2 30 %; O2 Saturation 96 % (91-98); PCO2 36 mmHg (32.0-48.0); PO2 84 mmHg (83-108); Puncture Site Right Radial; pH, Arterial 7.43 (7.35-7.45)
[2025-05-16] MEDS: LEVOTHYROXINE SODIUM 25 MCG TABLET 75 MCG PO (05:39)
[2025-05-16 05:58] LABS: Basophils # (Auto) 0.1 Thou/mm3 (0.0-0.2); Basophils % (Auto) 0 % (0-2.5); Eosinophils # (Auto) 0.1 Thou/mm3 (0.0-0.5); Eosinophils % (Auto) 0 % (0-10); Hematocrit 27.1 % (36.0-46.0); Hemoglobin 8.9 g/dL (12.0-16.0); Immature Granulocytes Auto 1.66 Thou/mm3 (0.00-0.00); Lymphocytes # (Auto) 1.6 Thou/mm3 (1.0-4.8); Lymphocytes % (Auto) 8 % (10-50); Mean Corpuscular HGB Conc 32.8 g/dl (31.0-37.0); Mean Corpuscular Hemoglobin 30.3 pg (25.0-35.0); Mean Corpuscular Volume 92 fL (80-100); Monocytes # (Auto) 1.6 Thou/mm3 (0.0-0.8); Monocytes % (Auto) 8 % (0-12); Neutrophils # (Auto) 15.4 Thou/mm3 (1.8-7.7); Neutrophils % (Auto) 76 % (37-80); Nucleated Red Blood Cell # 0.08 Thou/mm3 (0.00-0.00); Nucleated Red Blood Cell % 0 /100 WBC (0); Platelet Count 139 Thou/mm3 (140-440); RDW Standard Deviation 49.0 fL (36.4-46.3); Red Blood Count 2.94 Miln/mm3 (4.00-5.20); White Blood Count 20.4 Thou/mm3 (3.6-11.0)
[2025-05-16 06:36] LABS: Anion Gap 13 (7-16); BUN/Creatinine Ratio 21 Ratio (12-20); Blood Urea Nitrogen 58 mg/dL (9-23); Calcium 7.9 mg/dL (8.3-10.6); Carbon Dioxide 23.5 mMol/L (20.0-31.0); Chloride 104 mMol/L (98-107); Creatinine (Component) 2.8 mg/dL (0.6-1.3); Estimated Creatinine Clearance 20.4 mL/min (>60); Glucose 293 mg/dL (74-106); Magnesium 1.8 mg/dL (1.6-2.6); Osmolality,Calculated 306 (275-295); Phosphorous 2.6 mg/dL (2.4-5.1); Potassium 3.4 mMol/L (3.4-5.1); Sodium 140 mMol/L (136-145); eGFR 17 See Note
[2025-05-16] MEDS: ESCITALOPRAM OXALATE 10 MG TABLET 20 MG PO (08:33)
[2025-05-16] MEDS: CEFEPIME INJ 2 GM in SODIUM CHLORIDE 0.9% (Popper) 50 ML IV (08:33)
[2025-05-16] MEDS: AMIODARONE HCL 200 MG TABLET PO (08:33)
[2025-05-16] MEDS: CITRIC ACID/SODIUM CITR 15 ML UDC (BICITRA) 30 ML NG (08:34)
[2025-05-16] MEDS: HEPARIN SOD INJ 5000 UNIT/ML VIAL SC ×3 (08:34→21:32)
[2025-05-16] MEDS: INSULIN DEGLUDEC 5 UNIT/0.05 ML (PER 5 UNITS) 18 UNIT SC (08:35)
--- NOTE | 2025-05-16 08:42 | ESPR_ITS ---
Documentation for date of: 05/16/25 Subjective Subjective Interval history: Patient is 80y/o F with PMH of HFpEF, A-fib on Eliquis, bradycardia s/p pacemaker placement in 2022, hypothyroidism,chronic back pain, IDDM II, and hypertension presented to the hospital due to worsening shortness of breathe. Per ICU note, no further history was obtained from the patient from EMS. Patient has been admitted to ICU for management of septic shock and acute hypoxic respiratory failure with community acquired pneumonia. Patient has been consulted to nephrology for management of KRYSTAL on CKD and possibility of hemodialysis. 05/16/2025: Patient was seen and evaluated at bedside this morning. Labs were reviewed. Patient's WBC did spike to 20.4, hemoglobin 8.9, creatinine downtrending to 2.8 with BUN of 58 and GFR of 17. Patient has failed SBT. Today was a little bit more alert was following simple commands like raising her right thumb and was opening her eyes to verbal response. Recommend to remove hemodialysis catheter given spike in WBC and no need for hemodialysis today, will continue monitor kidney function for possible hemodialysis session in the weekend. Exam Vital Signs Temp Pulse Resp BP Pulse Ox O2 Del Method O2 Flow Rate 97.6 F 98 20 163/68 H 100 Mechanical Ventilation 35 05/16/25 04:00 05/16/25 07:00 05/12/25 13:12 05/16/25 07:00 05/16/25 07:00 05/15/25 12:01 05/12/25 08:00 FiO2 30 05/16/25 07:50 Narrative Exam Gen: Intubated, opening eyes to verbal response, following simple commands, HEENT: NCAT, EOMI, Pupils reactive SHOAIB, not icteric. External ears normal. No rhinorrhea. Moist mucous membranes. Neck: Supple, full range of motion, no observable masses, No meningeal sign. Lungs: No Respiratory distress, bronchial breath sounds bilaterally. CV: RRR, no murmurs. Abdomen: Soft, nondistended, No rebound tenderness. MSK: No joint swelling, no redness, bilateral upper extremity swelling, right toe is with purplish discoloration Skin: No rashes, petechiae, lesions. Neuro: Intubated, but more alert than previous days. Objective Labs 05/17/25 04:44 05/17/25 04:44 Labs: Laboratory Results - last 24 hr 05/16/25 05/16/25 04:04 04:44 WBC 20.4 H D RBC 2.94 L Hgb 8.9 L Hct 27.1 L MCV 92 MCH 30.3 MCHC 32.8 RDW Std Deviation 49.0 H Plt Count 139 L D Neut % (Auto) 76 Lymph % (Auto) 8 L Ramsey % (Auto) 8 Eos % (Auto) 0 Baso % (Auto) 0 Neut # (Auto) 15.4 H Lymph # (Auto) 1.6 Ramsey # (Auto) 1.6 H Eos # (Auto) 0.1 Baso # (Auto) 0.1 Immature Gran # (Auto) 1.66 H Absolute Nucleated RBC 0.08 H Immature Gran % 8 H Nucleated RBC % 0 Puncture Site Right Radial ABG pH 7.43 ABG pCO2 36 ABG pO2 84 ABG HCO3 24 ABG O2 Saturation 96 ABG Base Excess 0 FiO2 30 Sodium 140 Potassium 3.4 Chloride 104 Carbon Dioxide 23.5 Anion Gap 13 BUN 58 H Creatinine 2.8 H Estim Creat Clear Calc 20.4 L eGFR 17 L BUN/Creatinine Ratio 21 H Glucose 293 H Calculated Osmolality 306 H Calcium 7.9 L Phosphorus 2.6 Magnesium 1.8 ABG Interpretation ABG results: 05/09/25 05/10/25 05/11/25 23:08 07:18 03:56 ABG pH 7.29 L 7.25 L 7.26 L ABG pCO2 41 49 H 41 ABG pO2 133 H 95 D 68 L D ABG HCO3 20 21 19 L ABG O2 Saturation 97 95 92 ABG Base Excess -7 L -6 L -8 L 05/12/25 05/13/25 05/14/25 04:09 04:02 04:18 ABG pH 7.23 L 7.32 L 7.38 ABG pCO2 44 43 34 ABG pO2 78 L 71 L 121 H D ABG HCO3 19 L 22 20 ABG O2 Saturation 94 92 97 ABG Base Excess -8 L -4 L -5 L 05/14/25 05/15/25 05/15/25 13:15 04:14 05:10 ABG pH 7.41 7.38 7.41 ABG pCO2 33 40 35 ABG pO2 113 H 48 L* D 89 D ABG HCO3 21 23 23 ABG O2 Saturation 98 82 L 98 ABG Base Excess -4 L -2 -2 05/16/25 04:04 ABG pH 7.43 ABG pCO2 36 ABG pO2 84 ABG HCO3 24 ABG O2 Saturation 96 ABG Base Excess 0 Quality Measures Quality Measures VTE prophylaxis, sepsis Current suspected stage: ruled out Possible source: pulmonary Blood cultures ordered: yes Antibiotic ordered: Yes and none Advance care planning discussed with:: patient Assessment & Plan Assessment Current Active Medications: Generic Name Dose Route Start Last Admin Trade Name Freq PRN Reason Stop Dose Admin Acetaminophen 650 mg 05/10/25 04:13 05/10/25 21:34 Acetaminophen 325 Mg Tablet PO 06/09/25 04:12 650 mg Q4HR PRN Administration PAIN SCALE 1-3 (mild Acetaminophen 650 mg 05/10/25 04:13 Acetaminophen Supp 650 Mg Supp OR 06/09/25 04:12 Q4HR PRN PAIN SCALE 1-3 (mild Al Hydrox/Mg Hydrox/Simethicone 30 ml 05/10/25 04:13 Mg Hyd/Al Hyd/Jackeline (Maalox Reg) Susp 30 Ml Udc PO 06/09/25 04:12 Q4HR PRN Heartburn or Upset Stomach Amiodarone HCl 200 mg 05/10/25 09:00 05/15/25 08:22 Amiodarone Hcl 200 Mg Tablet PO 06/09/25 08:59 200 mg QDAY YURY Administration Artificial Tears 0 drop 05/13/25 14:52 05/13/25 15:27 Artificial Tears 225 Drop/15 Ml Btl BOTH EYES 06/12/25 14:51 2 drops PRN PRN Administration TO KEEP EYES MOIST Carvedilol 3.125 mg 05/15/25 21:00 05/15/25 20:59 Carvedilol 3.125 Mg Tablet PO 06/14/25 20:59 3.125 mg BID YURY Administration Citric Acid/Sodium Citrate 30 ml 05/14/25 09:00 05/15/25 20:59 Citric Acid/Sodium Citr 15 Ml Udc (Bicitra) NG 06/13/25 08:59 30 ml BID YURY Administration Dextrose 25 ml 05/10/25 04:27 Dextrose 50%-Water Inj 50 Ml Syringe IV 06/09/25 04:26 Q15MIN PRN BG 50-70 responsive npo pt Dextrose 50 ml 05/10/25 04:27 Dextrose 50%-Water Inj 50 Ml Syringe IV 06/09/25 04:26 Q15MIN PRN BG <50 OR BG <70 & pt unresponsive Escitalopram Oxalate 20 mg 05/10/25 09:00 05/15/25 08:22 Escitalopram Oxalate 10 Mg Tablet PO 06/09/25 08:59 20 mg QDAY YURY Administration Fentanyl Citrate 50 mcg 05/15/25 13:06 Fentanyl Cit Inj 50 Mcg/Ml Amp 2ml IVP 05/20/25 13:05 Q3HR PRN AGITATION (SEVERE) Glucagon 1 mg 05/10/25 04:27 Glucagon Inj 1 Mg Vial IM Q15MIN PRN BG <70, and no IV access Heparin Sodium (Porcine) 2,600 unit 05/12/25 11:51 05/12/25 13:57 Heparin Sod Inj 1000 Unit/Ml Vial 10 Ml INDWELLCAT 05/26/25 11:50 2,600 unit X1 PRN Administration DIALYSIS Heparin Sodium (Porcine) 5,000 unit 05/15/25 21:00 05/15/25 21:02 Heparin Sod Inj 5000 Unit/Ml Vial SC 05/29/25 20:59 5,000 unit Q12H YURY Administration Norepinephrine/Dextrose 8 mg in 250 mls @ 11.907 mls/hr 05/09/25 22:38 05/13/25 20:35 Levophed In D5w 8mg/250ml IV 06/08/25 22:37 0 mcg/kg/min .Q21H PRN 0 mls/hr PER PROTOCOL Titration Protocol 0.05 MCG/KG/MIN Cefepime HCl 2 gm/ Sodium 50 mls @ 100 mls/hr 05/10/25 09:00 05/15/25 08:21 Chloride IV 05/17/25 08:59 100 mls/hr QDAY YURY Administration Dexmedetomidine/Sodium Chloride 400 mcg in 100 mls @ 5.37 mls/hr 05/11/25 17:04 05/16/25 07:42 Precedex Ivpb IV 06/10/25 17:03 1 mcg/kg/hr .[id number] PRN 26.85 mls/hr Per PROTOCOL Administration Protocol 0.2 MCG/KG/HR Insulin Degludec 18 unit 05/16/25 09:00 Insulin Degludec 5 Unit/0.05 Ml (Per 5 Units) SC 06/15/25 08:59 QDAY YURY Insulin Human Lispro 0 unit 05/15/25 12:00 05/16/25 05:51 Insulin Lispro (Admelog) 1 Unit/0.01 Ml Unit SC 06/09/25 11:59 5 unit Q6HR YURY Administration Protocol Labetalol HCl 10 mg 05/15/25 16:59 Labetalol Inj 5 Mg/Ml Vial 20 Ml IVP Q10MIN PRN SBP > 180 Levothyroxine Sodium 75 mcg 05/10/25 09:00 05/16/25 05:39 Levothyroxine Sodium 25 Mcg Tablet PO 06/09/25 08:59 75 mcg ACBR YURY Administration Magnesium Hydroxide 30 ml 05/10/25 04:13 Milk Of Magnesia Susp 30 Ml Udc PO 06/09/25 04:12 QDAY PRN CONSTIPATION Metoprolol Tartrate 5 mg 05/15/25 14:16 05/15/25 17:17 Metoprolol Tartrate Inj 1 Mg/Ml Amp 5 Ml IVP 06/14/25 14:15 5 mg Q10MIN PRN Administration HR>130 Nitroglycerin 0.4 mg 05/10/25 04:13 Nitroglycerin 0.4 Mg Subl Btl #25 SL Q5MIN PRN CHEST PAIN Pantoprazole Sodium 40 mg 05/10/25 11:00 05/15/25 08:23 Pantoprazole Inj 40 Mg Vial IVP 06/09/25 10:59 40 mg QDAY YURY Administration Sodium Chloride 3 ml 05/09/25 22:45 05/09/25 23:39 Sodium Chloride Rt [place] 0.9% 3 Ml Nebu INH 06/08/25 22:44 3 ml PRN PRN Administration SOLN Plan Patient is 80y/o F with PMH of HFpEF, A-fib on Eliquis, bradycardia s/p pacemaker placement in 2022, hypothyroidism,chronic back pain, IDDM II, and hypertension presented to the hospital due to worsening shortness of breathe. Per ICU note, no further history was obtained from the patient from EMS. Patient has been admitted to ICU for management of septic shock and acute hypoxic respiratory failure with community acquired pneumonia. Patient has been consulted to nephrology for management of KRYSTAL on CKD and possibility of hemodialysis. #KRYSTAL on CKD #Anemia #AGMA #Lactic acidosis -Upon admission, BUN: 20, Cr:2.2 (Baseline 1.3), eGFR: 22 -Likely prerenal 2/2 sepsis, -Patient has minimal edema, lungs clear, mucus membranes moist. -CXR (05/10/2025): Severe pneumonia right lung pneumonia noted -Currently, BUN 58, creatinine 2.8, GFR 17 ? Patient january 1025 mL of urine yesterday ? Remove hemodialysis catheter for possible source of infection given spike in the ABC. Plan: -Will continue to monitor renal function for possible extra dose of hemodialysis during the weekend if needed ?Can do as needed Bumex as patient is making good urine output. -Avoid nephrotoxins -Renally dose medication Other diseases: #Acute encephalopathy #Septic shock 2/2 CAP #HFpEF #NSTEMI likely type II #Atrial fibrillation #IDDM II #Hx of Hypothyroidism #Subclinical hypothyroidisim #Elevated T. bili #Leukocytosis #Community-acquired pneumonia - Management per ICU team Thank you for allowing us to participate in the care of your patient. Case disclosed with Attending Dr. Wes Aguilera PGY2 Disclaimer: Even though this this note was dictated by speech recognition and even though it was carefully revised there may still be minor errors in dock operations supervisor due to voice recognition software. Attending Provider Attestation/Addendum Patient seen and examined with resident physician Dr. Enriquez. Note reviewed, agree with findings and recommendations. BUN and creatinine started to trend down. Hold off on dialysis. If possible remove dialysis catheter and give line holiday over the weekend.
--- NOTE | 2025-05-16 08:49 | XR_ITS ---
Examination: AP chest single view TECHNIQUE: AP portable upright chest single view Date and time: May 16, 2025 0932 hours, comparison 05/14/2025 INDICATIONS: Hypoxic respiratory or failure, pneumonia on chest imaging this week. FINDINGS: Significant right lung pneumonia, extensive in the right upper lobe Endotracheal tube tip 5 cm above jayson. The orogastric tube is in the stomach the tip is below the level of the of the film. Stable transvenous dual-chamber bipolar cardiac leads. Right internal jugular temporal dialysis catheter satisfactory position IMPRESSION: There remains significant right lung pneumonia
--- NOTE | 2025-05-16 10:43 | ESPR_ITS ---
<Statement entered by Barry Cochran MD - 05/18/25 10:14> TOTAL TIME: 45MINUTES ON DIRECT MEDICAL CARE, MANAGEMENT - COORDINATION AND COUNSELING > 50% OF TOTAL TIME I saw and evaluated the patient. I reviewed the resident?s note and agree with findings and plan as documented in the resident?s note. Continuing to lighten sedation, pressure support ventilation trials as tolerated, pneumonia seems to be improving, will eventually need physical therapy as she has significant weakness, completing antibiotics <Statement entered by Nilton Moore MD - 05/17/25 07:03> Senior Resident Attestation: I supervised/discussed management plan with journalism intern physician Dr. Butler, and was involved in the care of this patient. I personally saw and examined the patient and discussed the assessment and plan with the entire medicine team, including my attending. I agree with the assessment and plan as documented. Patient was seen and examined at the bedside. Patient passed SBT successfully and was extubated this afternoon and placed on cold mist. Her respiratory rate remained elevated at around 25/min however she was looking comfortable and respiratory rate was similar to vent. Will order physical therapy and swallow eval for tomorrow as patient appears to be extremely weak today. Will continue extensive suctioning. Patient's care was discussed with attending physician, Dr. Cochran. Nilton Moore MD PGY-3. Documentation for date of: 05/16/25 Subjective Subjective Interval history: 80 year-old female with PMHx noted for HFpEF, A-fib on Eliquis, bradycardia s/p pacemaker placement in 2022, hypothyroidism,chronic back pain, IDDM II, and hypertension was brought in from home by ambulance for complaints of worsening shortness of breath. No further history obtained from EMS, at the ED patient's BP 75/50 with heart rate of 102 and temp 105.1, labs were pH 7.29 WBC 24, creatinine 2.2, lactate 6, troponin 45, BNP 2800, Pro-Jamshid 23, and TSH of 6. ABG pH 7.29 and pCO2 of 41. CXR showed significant right lobar pneumonia with UA noted for high WBC/RBC/epithelial cells. Head CT was negative for acute findings, patient was intubated, femoral central line along with femoral arterial line were placed in ED. Patient received 3L of LR boluses, received 1 dose of ceftriaxone and azithromycin and was started on Levophed along with dobutamine. Patient will be admitted to ICU for further management and care of septic shock along with acute hypoxic respiratory failure in setting of community-acquired pneumonia. Interval History 05/10/25: Patient was examined at bedside; she is currently intubated and chemically induced on fentanyl drip to maintain RASS score -2 for mechanical ventilation. Current plan is to continue IV NS maintenance @ 100 mL/hr, IV cefepime 2 gm qD (started 05/10 @ 09:00) and IV Zithromax 250 mg qD (started 05/10 @ 09:00) for treatment of her community-acquired pneumonia, follow up on sputum culture to guide antibiotic de-escalation, and continue PO Cordarone 200 mg qD and PO Eliquis 2.5 mg BID (both started 05/10 @ 09:00) for treatment of her atrial fibrillation. Of note, patient's endotracheal tube was somehow dislodged today and required readjustment via bronchoscope to return the tube to its proper position. Will continue to monitor patient as her pneumonia is treated (including the performance of daily awakening trials) with the hope that resolution of the infection will remove her state of septic shock and ongoing acute hypoxic respiratory failure (disposition condition requires successful weaning off of ventilatory support and pressors). 05/11/2025: Overnight patient was given magnesium sulfate 4 g IV x 1. Ventilator on AC MV, VT 400, RR 20, PEEP 5, FiO2 40%. On fentanyl infusion, RASS -2. Input 2976, output 20 cc, balance +2956 cc. Patient responsive to noxious stimuli but RASS appears closer to -3, will wean sedation. Labs showed NA 138, K4.1, bicarb 19.4, BUN 36, CR 3.6, Phos 5.5. ABG pH 7.26, pCO2 41. Blood and sputum cultures pending, sputum Gram stain grew 4 plus GPC preliminary. Currently on Levophed infusion, titrating as necessary. Today will give 500 cc normal saline IVF bolus for fluid challenge. If urine output does not improve, will consult nephrology for possible urgent hemodialysis. 05/12/2025: Overnight sedation was weaned, no other events. Input 1165, output 0 cc. Patient remains intubated and mechanically ventilated, RASS -2 on fentanyl and Precedex infusion. Labs showed Hb 9.7, WBC 15.9, BUN 46, CR 4.5. Right lower extremity arterial duplex showed severe right leg obstructive PAD. Today we will place temporary dialysis catheter and plan for low rate dialysis as per nephrology recommendations. 05/13/2025: No events overnight. Input 1306, output 4 5, balance +901 cc. This morning patient remains on Precedex infusion with a RASS of -1. Norepinephrine infusion was turned off overnight as well as fentanyl infusion. ABG showed pH 7.32, pCO2 43. Hb 9.4, PLT 79, K3.7, Mg 1.8, BUN 43, CR 3.4. Will continue with daily SAT's and give patient a break on pressure support for 2 hours today. No plans for extubation as yet as patient's neurological status is still unable to be assessed due to residual sedation. Bumex 2 Mg IV x 1 as per nephrology recommendations. HD will also be held today as per nephrology. 05/14/2025: Overnight patient was switched between volume control and spontaneous ventilation. Input 3120, output 1419, balance 1630. Patient remains on low- dose Precedex and following commands labs showed WBC 3, Hb 8.7, PLT 65, K3.2, bicarb 19 point, BUN 48, CR 3.4. KCl 40 mEq IV x 1, Bicitra 30 mL GT twice daily and Bumex 2 Mg IV x 1 given as per nephrology recommendation. No hemodialysis today 05/15/2025: Overnight patient's alternated between volume control and pressure support ventilation due to vent dyssynchrony. 2258 cc, output 990 cc, balance +1268 cc. This morning patient was on low-dose Precedex but responds to noxious stimuli. Blood glucose between 200?3 100s in past 24 hours. Labs showed Hb 8, PLT 81, NA 137, K3.6, HCO3 22.6, BUN 44, CR 3.2, Mg 1.8. Sputum culture grew strep pneumonia pansensitive to all tested antibiotics. Will continue to hold on hemodialysis as per nephrology recommendations and Bicitra for 1 more day. Repleted with KCl 20 mEq IV x 1, magnesium sulfate 2 g IV x 1 and de-escalated antibiotics to ceftriaxone 1 g IV daily. Increased insulin degludec to 18 units daily and switch to insulin correction scale 3. Will attempt SBT today after SAT. Also will remove femoral central line. 05/16/2025: No overnight events. Today, patient was given SBT again while sedated on low-dose Precedex (due to her history of agitation and distress while on sedation vacation) to assess her likelihood of being extubated successfully purely from a physiological standpoint (tidal volume generation, maintenance of stable respiratory rate, achievement of adequate oxygenation, etc.) with anxiety/agitation removed from the equation; SBT was passed successfully. Patient's Rapid Shallow Breathing Index (Tidal Volume / RR) was calculated to be 450/23 = 51 breaths/min/L, suggesting likely successful extubation due to being a good amount below generally accepted threshold of 105 breaths/min/L. Patient's diaphragmatic and accessory muscle strength were also assessed via Negative Inspiratory Force testing and her NIF was found to be more negative than -70 cm H2O, further supporting the likelihood of successful extubation due to being more negative than generally accepted threshold -30 cm H2O. There was also airflow heard around the endotracheal tube during cuff leak test suggesting no upper airway obstruction or edema. Due to these auspicious findings, the decision was made to extubate the patient which she seems to have been tolerating well. However, since being extubated, patient has been having hypertension with SBP sometimes surpassing 200 (but usually being in the 180s-190s) which has been refractory to IV labetalol 10 mg x2, IV tylenol (pain relief). Patient will be given IV fentanyl 25 mcg (to treat possible opiate withdrawal) and have IV hydralazine 10 mg q4HR prn for SBP>180 to see if these measures will ameliorate her significant hypertension. Her home antihypertensives will be restarted once patient can tolerate PO medications or have oral route access instated. Of note, patient has new leukocytosis with WBC elevation to 20.4 from 7.7 yesterday; her dialysis line may be the nidus of infection but removal was ultimately decided against due to it being her only route of central access. Repeat CXR was clear, lowering clinical suspicion for new pneumonia. From nephrology's standpoint, patient was noted to have made 1000 mL of urine and HD can be held until Monday at which point her need for HD will be reevaluated. Exam Vital Signs Temp Pulse Resp BP Pulse Ox O2 Del Method O2 Flow Rate 98.4 F 107 H 20 157/102 H 99 Mechanical Ventilation 35 05/16/25 08:00 05/16/25 10:16 05/12/25 13:12 05/16/25 10:16 05/16/25 10:16 05/15/25 12:01 05/12/25 08:00 FiO2 30 05/16/25 10:16 Narrative Exam Constitutional Morbidly obese, elderly female. HEENT Normocephalic, atraumatic. PERRL. EOMI. Patent nares. Trachea midline Respiratory Chest normal on inspection and clear auscultation bilaterally, reduced air entry at bases. Right IJ temp dialysis catheter noted. Exit site clean Cardiovascular S1 and S2 audible, RRR. No murmurs carotid bruit. No gross JVD. Abdominal Soft, obese and non tender to palpation in all quadrants. BS +. Left femoral central line noted. Exit site clean Genitourinary No bladder tenderness, no flank pain. Normal to palpation Musculoskeletal Extremities tone within normal limits. 1+ lower extremity edema up to tibial tuberosity bilaterally Neurological (performed a few hours after extubation) Patient does not make eye contact or show awareness of this advertising copy writer when her name is called or when she is directed to blink to convey understanding. However, she is awake and moves in response to noise stimulus. Skin Bluish discoloration of great toe, 2nd, 3rd and 4th toes on right foot. Absent dorsalis pedis and posterior tibial pulse on right leg. Cold extremities (right colder than left). Objective Labs 05/16/25 04:44 05/16/25 04:44 Labs: Laboratory Results - last 24 hr 05/16/25 05/16/25 04:04 04:44 WBC 20.4 H D RBC 2.94 L Hgb 8.9 L Hct 27.1 L MCV 92 MCH 30.3 MCHC 32.8 RDW Std Deviation 49.0 H Plt Count 139 L D Neut % (Auto) 76 Lymph % (Auto) 8 L [place] % (Auto) 8 Eos % (Auto) 0 Baso % (Auto) 0 Neut # (Auto) 15.4 H Lymph # (Auto) 1.6 [place] # (Auto) 1.6 H Eos # (Auto) 0.1 Baso # (Auto) 0.1 Immature Gran # (Auto) 1.66 H Absolute Nucleated RBC 0.08 H Immature Gran % 8 H Nucleated RBC % 0 Puncture Site Right Radial ABG pH 7.43 ABG pCO2 36 ABG pO2 84 ABG HCO3 24 ABG O2 Saturation 96 ABG Base Excess 0 FiO2 30 Sodium 140 Potassium 3.4 Chloride 104 Carbon Dioxide 23.5 Anion Gap 13 BUN 58 H Creatinine 2.8 H Estim Creat Clear Calc 20.4 L eGFR 17 L BUN/Creatinine Ratio 21 H Glucose 293 H Calculated Osmolality 306 H Calcium 7.9 L Phosphorus 2.6 Magnesium 1.8 ABG Interpretation ABG results: 05/09/25 05/10/25 05/11/25 23:08 07:18 03:56 ABG pH 7.29 L 7.25 L 7.26 L ABG pCO2 41 49 H 41 ABG pO2 133 H 95 D 68 L D ABG HCO3 20 21 19 L ABG O2 Saturation 97 95 92 ABG Base Excess -7 L -6 L -8 L 05/12/25 05/13/25 05/14/25 04:09 04:02 04:18 ABG pH 7.23 L 7.32 L 7.38 ABG pCO2 44 43 34 ABG pO2 78 L 71 L 121 H D ABG HCO3 19 L 22 20 ABG O2 Saturation 94 92 97 ABG Base Excess -8 L -4 L -5 L 05/14/25 05/15/25 05/15/25 13:15 04:14 05:10 ABG pH 7.41 7.38 7.41 ABG pCO2 33 40 35 ABG pO2 113 H 48 L* D 89 D ABG HCO3 21 23 23 ABG O2 Saturation 98 82 L 98 ABG Base Excess -4 L -2 -2 05/16/25 04:04 ABG pH 7.43 ABG pCO2 36 ABG pO2 84 ABG HCO3 24 ABG O2 Saturation 96 ABG Base Excess 0 Quality Measures Quality Measures VTE prophylaxis, sepsis Current suspected stage: ruled out Possible source: pulmonary Blood cultures ordered: yes Antibiotic ordered: Yes and none Advance care planning discussed with:: patient Assessment & Plan Assessment Current Active Medications: Generic Name Dose Route Start Last Admin Trade Name Freq PRN Reason Stop Dose Admin Acetaminophen 650 mg 05/10/25 04:13 05/10/25 21:34 Acetaminophen 325 Mg Tablet PO 06/09/25 04:12 650 mg Q4HR PRN Administration PAIN SCALE 1-3 (mild Acetaminophen 650 mg 05/10/25 04:13 Acetaminophen Supp 650 Mg Supp ID 06/09/25 04:12 Q4HR PRN PAIN SCALE 1-3 (mild Al Hydrox/Mg Hydrox/Simethicone 30 ml 05/10/25 04:13 Mg Hyd/Al Hyd/Jackeline (Maalox Reg) Susp 30 Ml Udc PO 06/09/25 04:12 Q4HR PRN Heartburn or Upset Stomach Amiodarone HCl 200 mg 05/10/25 09:00 05/16/25 08:33 Amiodarone Hcl 200 Mg Tablet PO 06/09/25 08:59 200 mg QDAY YURY Administration Artificial Tears 0 drop 05/13/25 14:52 05/13/25 15:27 Artificial Tears 225 Drop/15 Ml Btl BOTH EYES 06/12/25 14:51 2 drops PRN PRN Administration TO KEEP EYES MOIST Carvedilol 3.125 mg 05/15/25 21:00 05/16/25 08:32 Carvedilol 3.125 Mg Tablet PO 06/14/25 20:59 3.125 mg BID YURY Administration Citric Acid/Sodium Citrate 30 ml 05/14/25 09:00 05/16/25 08:34 Citric Acid/Sodium Citr 15 Ml Udc (Bicitra) NG 06/13/25 08:59 30 ml BID YURY Administration Dextrose 25 ml 05/10/25 04:27 Dextrose 50%-Water Inj 50 Ml Syringe IV 06/09/25 04:26 Q15MIN PRN BG 50-70 responsive npo pt Dextrose 50 ml 05/10/25 04:27 Dextrose 50%-Water Inj 50 Ml Syringe IV 06/09/25 04:26 Q15MIN PRN BG <50 OR BG <70 & pt unresponsive Escitalopram Oxalate 20 mg 05/10/25 09:00 05/16/25 08:33 Escitalopram Oxalate 10 Mg Tablet PO 06/09/25 08:59 20 mg QDAY YURY Administration Fentanyl Citrate 50 mcg 05/15/25 13:06 Fentanyl Cit Inj 50 Mcg/Ml Amp 2ml IVP 05/20/25 13:05 Q3HR PRN AGITATION (SEVERE) Glucagon 1 mg 05/10/25 04:27 Glucagon Inj 1 Mg Vial IM Q15MIN PRN BG <70, and no IV access Heparin Sodium (Porcine) 2,600 unit 05/12/25 11:51 05/12/25 13:57 Heparin Sod Inj 1000 Unit/Ml Vial 10 Ml INDWELLCAT 05/26/25 11:50 2,600 unit X1 PRN Administration DIALYSIS Heparin Sodium (Porcine) 5,000 unit 05/16/25 14:00 Heparin Sod Inj 5000 Unit/Ml Vial SC 05/30/25 13:59 Q8HR YURY Cefepime HCl 2 gm/ Sodium 50 mls @ 100 mls/hr 05/10/25 09:00 05/16/25 08:33 Chloride IV 05/17/25 08:59 100 mls/hr QDAY YURY Administration Dexmedetomidine/Sodium Chloride 400 mcg in 100 mls @ 5.37 mls/hr 05/11/25 17:04 05/16/25 07:42 Precedex Ivpb IV 06/10/25 17:03 1 mcg/kg/hr .[id number] PRN 26.85 mls/hr Per PROTOCOL Administration Protocol 0.2 MCG/KG/HR Insulin Degludec 18 unit 05/16/25 09:00 05/16/25 08:35 Insulin Degludec 5 Unit/0.05 Ml (Per 5 Units) SC 06/15/25 08:59 18 unit QDAY YURY Administration Insulin Human Lispro 0 unit 05/15/25 12:00 05/16/25 05:51 Insulin Lispro (Admelog) 1 Unit/0.01 Ml Unit SC 06/09/25 11:59 5 unit Q6HR YURY Administration Protocol Levothyroxine Sodium 75 mcg 05/10/25 09:00 05/16/25 05:39 Levothyroxine Sodium 25 Mcg Tablet PO 06/09/25 08:59 75 mcg ACBR YURY Administration Magnesium Hydroxide 30 ml 05/10/25 04:13 Milk Of Magnesia Susp 30 Ml Udc PO 06/09/25 04:12 QDAY PRN CONSTIPATION Metoprolol Tartrate 5 mg 05/15/25 14:16 05/15/25 17:17 Metoprolol Tartrate Inj 1 Mg/Ml Amp 5 Ml IVP 06/14/25 14:15 5 mg Q10MIN PRN Administration HR>130 Pantoprazole Sodium 40 mg 05/10/25 11:00 05/16/25 08:34 Pantoprazole Inj 40 Mg Vial IVP 06/09/25 10:59 40 mg QDAY YURY Administration Sodium Chloride 3 ml 05/09/25 22:45 05/09/25 23:39 Sodium Chloride Rt [place] 0.9% 3 Ml Nebu INH 06/08/25 22:44 3 ml PRN PRN Administration SOLN Plan 80 year-old female with PMHx noted for HFpEF, A-fib on Eliquis, bradycardia s/p pacemaker placement in 2022, hypothyroidism,chronic back pain, IDDM II, and hypertension admitted to ICU for further management and care of septic shock along with acute hypoxic respiratory failure in setting of community-acquired pneumonia. No overnight events. Today, patient was given SBT again while sedated on low- dose Precedex (due to her history of agitation and distress while on sedation vacation) to assess her likelihood of being extubated successfully purely from a physiological standpoint (tidal volume generation, maintenance of stable respiratory rate, achievement of adequate oxygenation, etc.) with anxiety/agitation removed from the equation; SBT was passed successfully. Patient's Rapid Shallow Breathing Index (Tidal Volume / RR) was calculated to be 450/23 = 51 breaths/min/L, suggesting likely successful extubation due to being a good amount below generally accepted threshold of 105 breaths/min/L. Patient's diaphragmatic and accessory muscle strength were also assessed via Negative Inspiratory Force testing and her NIF was found to be more negative than -70 cm H2O, further supporting the likelihood of successful extubation due to being more negative than generally accepted threshold -30 cm H2O. There was also airflow heard around the endotracheal tube during cuff leak test suggesting no upper airway obstruction or edema. Due to these auspicious findings, the decision was made to extubate the patient which she seems to have been tolerating well. However, since being extubated, patient has been having hypertension with SBP sometimes surpassing 200 (but usually being in the 180s-190s) which has been refractory to IV labetalol 10 mg x2, IV tylenol (pain relief). Patient will be given IV fentanyl 25 mcg (to treat possible opiate withdrawal) and have IV hydralazine 10 mg q4HR prn for SBP>180 to see if these measures will ameliorate her significant hypertension. Her home antihypertensives will be restarted once patient can tolerate PO medications or have oral route access instated. Of note, patient has new leukocytosis with WBC elevation to 20.4 from 7.7 yesterday; her dialysis line may be the nidus of infection but removal was ultimately decided against due to it being her only route of central access. Repeat CXR was clear, lowering clinical suspicion for new pneumonia. From nephrology's standpoint, patient was noted to have made 1000 mL of urine and HD can be held until Monday at which point her need for HD will be reevaluated. 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: #Encephalopathy s/p extubation and prolonged sedation #likely 2/2 post-sedation fatigue Patient was successfully extubated today after being intubated and sedated for more than 6 days (with daily SATs and SBTs when appropriate) Upon assessing patient around 6-8 hours s/p extubation, patient is awake with eyes open but does not make eye contact with or verbally respond to this advertising copy writer when her name is called and does not follow commands (but moves her head in response to noise stimuli) Later in the night (05/16, 18:50), patient is now making eye contact and following commands According to patient's partner, patient does not have baseline dementia At this moment in time, most favored working diagnosis is normal transient fatigue s/p prolonged extubation and sedation (too early to suspect ICU delirium) DDx: normal transient fatigue s/p prolonged extubation and sedation, consider ICU delirium if symptoms persist Dx: -During mentation assessments, patient was noted to have adequate oxygenation and an acceptable level of tachypnea Rx: -Continue to monitor as patient's mental status is expected to improve with time RRx: -Patient already seems to be improving over the short period of time she has been off intubation and sedation without episodes of acute agitation or fluctuating consciousness, but will consider CAM-ICU screening criteria for ICU delirium if encephalopathy persists over 24 hours CVS: #HFpEF [EF 50-55%] Dx: -05/10 TTE: Mild LVH. Estimated EF at 50-55%. There is grade I diastolic dysfunction. The RV size is mildly increased with normal systolic function. Huertas sign present. Rx: ?Can consider resuming Guideline-Directed Medical Therapy once patient can tolerate PO medications (though most evidence for mortality benefit and QOL improvement of GDMT is for HFrEF w/ EF<40%): 1. RAAS inhibitor: restart patient's home PO losartan 50 mg qD 2. Beta-eligio: restart patient's home PO carvedilol 3.125 mg qD 3. Mineralocorticoid receptor antagonist: patient does not seem to have a home medication of this drug class 4. SGLT-2 inhibitor: patient does not seem to have a home medication of this drug class #Atrial fibrillation?paroxysmal Dx: -From telemetry review patient is in sinus rhythm with rates between 80s?100s overnight ? [id number]: 9 points [12.2% stroke risk per year] Has bled 4 points [high risk of major bleeding] Rx:- Restart home PO Cordarone 200 mg qD (first started 05/10 @ 09:00) once tolerating PO intake #Peripheral arterial disease Patient noted to have reduced pulses on right leg. Toes on right foot appear blue Dx: Right lower extremity arterial duplex ultrasound showed severe obstructive PAD. No flow posterior tibial artery. Rx: -Outpatient follow-up once patient gets over this acute phase of her illness. RRx: -The blue discoloration does seem to be slowly progressing but there is currently low concern for need of immediate intervention or acute decompensation (limb ischemia) PULM: #s/p extubation Today, patient was given SBT again while sedated on low-dose Precedex (due to her history of agitation and distress while on sedation vacation) and passed successfully. Patient's Rapid Shallow Breathing Index (Tidal Volume / RR) was calculated to be 450/23 = 51 breaths/min/L, suggesting likely successful extubation. Patient's diaphragmatic and accessory muscle strength were also assessed via Negative Inspiratory Force testing and her NIF was found to be more negative than -70 cm H2O, further supporting the likelihood of successful extubation. There was also airflow heard around the endotracheal tube during cuff leak test suggesting no upper airway obstruction or edema. Rx: -Patient was successfully extubated in the early noon of 05/16 after being intubated for more than 6 days RRx: -Monitor patient's respiratory rate, mental status, SpO2, and possibly ABG depending on clinical gestalt #Acute hypoxic respiratory failure secondary to community-acquired pneumonia, requiring intubation (resolving) Patient is slated to finish her last dose of IV cefepime on 05/17 By 05/17, she will have completed 7-day course IV cefepime 2 gm qD and 5-day course IV Zithromax 250 mg qD Dx: -Per Rads, 05/16 CXR shows significant right lung pneumonia, being notably extensive in the RUL -05/16 WBC elevation from 7.7 to 20.4 -9/6 MRSA Screen (+) -05/09 BCx both (-) -05/09 sputum culture grew pansensitive Streptococcus pneumoniae Rx: -Give last dose of IV cefepime 2 gm qD tomorrow, 05/17 RRx: -Seems clinically improved and was able to tolerate extubation today Renal: #KRYSTAL on CKD (resolving) Creatinine drop to 2.8 from 3.2 and eGFR bump to 17 from 14 without any HD Patient's urine output today was 1000 mL DDx:Prerenal KRYSTAL in setting of septic shock, ATN Rx: -Per nephrology recommendations, patient will not need HD over the weekend (05/17-05/18) due to improving kidney function and her need for HD will be re- evaluated on Monday (05/19) RRx: -Follow-up on renal panel and monitor urine output. Endocrine #IDDM II Patient on 30 units of insulin glargine daily at home along with regular insulin Blood glucose were between 200s?300s in past 24 hours. Rx: -Increased insulin degludec to 18 units SC daily -Increased insulin correction scale to step 3 RRx: To monitor blood glucose and titrate insulin accordingly #Hx of Hypothyroidism Dx: TSH elevated at 6 with normal FT4 Rx: Continue home medication levothyroxine 75 mcg p.o. AC BR GI: #No active issues Heme: #Leukocytosis 05/16 WBC elevation from 7.7 to 20.4, afebrile DDx: colonization of HD catheter/Mena/suction sump/other tubing, ongoing pneumonia, UTI, other occult infection, reactive Dx: -Per Rads, 05/16 CXR shows significant right lung pneumonia, being notably extensive in the RUL -05/15 UCx results pending -05/10 MRSA Screen (+) Rx: -Consider additional work-up that may include: repeat CXR or CTAP, sputum culture, blood cultures, procalcitonin, echocardiogram (assess for possible endocarditis or valvular vegetations) -Survey all lines, access routes, and general skin of patient RRx: -Monitor CBC and monitor for infectious signs or fever #Chronic normocytic anemia DDx: Anemia of chronic disease, CKD Dx: Hb 8 Rx: Continue to monitor CBC. #Thrombocytopenia DDx: sepsis, ckd Dx: Plt 81 Rx: monitor for signs of bleeding and cbc ID: #Community-acquired pneumonia Dx: -See Respiratory section. Rx: -See Respiratory section. Skin: No active issues ICU Health Maintenance: Dispo: s/p extubation and weaned off of sedation Diet: Tube feeds as per dietitian DVT ppx: SCDs GI ppx: Protonix 40mg qD IV lines: 2 pIV Central line: Yes [Left femoral on 05/10-05/15 and RIJ on 05/12- Arterial line: No Mena: Yes (started 05/10 - Code status: FULL CODE Plan of care discussed with Attending Dr. Sammie Butler, DO Internal Medicine, PGY-1
--- NOTE | 2025-05-16 13:25 | PC.SS ---
Update: Patient extubated today. NG tube removed. Swallow evaluation is pending. Dialysis to be held over the weekend. Dr. Harvey is consulting.
[2025-05-16] MEDS: LABETALOL INJ 5 MG/ML VIAL 20 ML 10 MG IVP ×2 (13:37→15:20)
[2025-05-16] MEDS: ACETAMINOPHEN IVPB 1,000 MG/100 ML VIAL 250 MG IV (14:25)
[2025-05-16] MEDS: fentaNYL CIT INJ 50 mCg/ML AMP 2ML 25 MCG IVP (16:21)
[2025-05-16] MEDS: hydrALAZINE INJ 20 MG/ML VIAL 10 MG IVP (17:03)
--- NOTE | 2025-05-16 18:11 | PC.RT ---
Nasopharyngeal airway inserted for Pt protection from NT suctionin. JOO Santacruz is aware.
[2025-05-16] MEDS: Artificial Tears 225 DROP/15 ML BTL BOTH EYES (23:58)
[2025-05-17] VITALS (39 sets, daily range): BP systolic 124–211; BP diastolic 64–140; PULSE 87–121; RESP 0–34; TEMP 35.8–36.3; O2SAT 82–100; BMI 42.1
[2025-05-17] MEDS: INSULIN LISPRO (AdmeLOG) 1 UNIT/0.01 ML UNIT SC ×4 (00:02→18:57)
[2025-05-17] MEDS: hydrALAZINE INJ 20 MG/ML VIAL 10 MG IVP ×3 (02:03→21:40)
[2025-05-17 05:51] LABS: Basophils # (Auto) 0.0 Thou/mm3 (0.0-0.2); Basophils % (Auto) 0 % (0-2.5); Eosinophils # (Auto) 0.1 Thou/mm3 (0.0-0.5); Eosinophils % (Auto) 0 % (0-10); Hematocrit 34.1 % (36.0-46.0); Hemoglobin 10.8 g/dL (12.0-16.0); Immature Granulocytes Auto 1.95 Thou/mm3 (0.00-0.00); Lymphocytes # (Auto) 1.6 Thou/mm3 (1.0-4.8); Lymphocytes % (Auto) 6 % (10-50); Mean Corpuscular HGB Conc 31.7 g/dl (31.0-37.0); Mean Corpuscular Hemoglobin 29.3 pg (25.0-35.0); Mean Corpuscular Volume 93 fL (80-100); Monocytes # (Auto) 1.3 Thou/mm3 (0.0-0.8); Monocytes % (Auto) 5 % (0-12); Neutrophils # (Auto) 23.8 Thou/mm3 (1.8-7.7); Neutrophils % (Auto) 83 % (37-80); Nucleated Red Blood Cell # 0.05 Thou/mm3 (0.00-0.00); Nucleated Red Blood Cell % 0 /100 WBC (0); Platelet Count 123 Thou/mm3 (140-440); RDW Standard Deviation 48.9 fL (36.4-46.3); Red Blood Count 3.68 Miln/mm3 (4.00-5.20); White Blood Count 28.7 Thou/mm3 (3.6-11.0)
[2025-05-17] MEDS: HEPARIN SOD INJ 5000 UNIT/ML VIAL SC ×3 (06:19→21:40)
[2025-05-17 06:24] LABS: Anion Gap 13 (7-16); BUN/Creatinine Ratio 20 Ratio (12-20); Blood Urea Nitrogen 47 mg/dL (9-23); Calcium 8.2 mg/dL (8.3-10.6); Carbon Dioxide 22.2 mMol/L (20.0-31.0); Chloride 107 mMol/L (98-107); Creatinine (Component) 2.3 mg/dL (0.6-1.3); Estimated Creatinine Clearance 24.7 mL/min (>60); Glucose 203 mg/dL (74-106); Magnesium 1.7 mg/dL (1.6-2.6); Osmolality,Calculated 301 (275-295); Phosphorous 2.8 mg/dL (2.4-5.1); Potassium 3.5 mMol/L (3.4-5.1); Sodium 142 mMol/L (136-145); eGFR 21 See Note
[2025-05-17] MEDS: SODIUM CHLORIDE 0.9% 500 ML 500 ML 999 ML IV (07:27)
[2025-05-17] MEDS: Magnesium Sulfate 2 GM Ivpb 2 GM/50 ML BAG IV (07:28)
[2025-05-17] MEDS: POTASSIUM CHL 20 mEq IVPB 100 ML 50 MEQ IV (07:28)
[2025-05-17] MEDS: SODIUM CHLORIDE RT SOL 0.9% 3 ML NEBU INH (08:28)
[2025-05-17] MEDS: EPINEPHrine RT SOL 0.5 ML NEBU INH (08:28)
--- NOTE | 2025-05-17 08:53 | PCS.ST ---
Defer Swallow Evaluation today per Medical team. Will check status in AM.
--- NOTE | 2025-05-17 09:44 | XR_ITS ---
Examination: Right foot 2 views Technique one AP lateral right foot 2 views Date and time: May 17, 2025 0945 hrs., Comparison August 11, 2022 Indications: Redness swelling and pain beginning this week Findings: Severe osteopenia No kayleen cortical bone destruction No opaque foreign body Impression: Severe osteopenia No kayleen cortical bone destruction Consider CT scan foot without contrast follow-up
--- NOTE | 2025-05-17 09:51 | ESPR_ITS ---
<Statement entered by Barry Cochran MD - 05/18/25 10:23> TOTAL CC TIME: 45 MIN I saw and evaluated the patient. I reviewed the resident?s note and agree with findings and plan as documented in the resident?s note. Upon my evaluation, this patient had a high probability of imminent or life- threatening deterioration due to acute respiratory distress which required my direct attention, intervention, and personal management. This time is exclusive of time spent on procedures, which are documented separately if performed. Patient noted to have stridor this morning with increased work of breathing and accessory use of muscles. After starting noninvasive positive pressure ventilation, Decadron and racemic epinephrine her condition improved. Of note the white blood cell count is rising concerning for an underlying infection. Blood cultures have been drawn, we may have to image this right lower extremity given the digital cyanosis and potential for gangrene in the setting of severe peripheral vascular disease. However risks include worsening renal failure. Goals of care will need to be discussed as well. our interest was in removing the right CVC, however the the left IJ is not only poorly visualized on US, but also not compressible. Multiple attempts at US PIV placement have failed as well Documentation for date of: 05/17/25 Subjective Subjective Interval history: 80 year-old female with PMHx noted for HFpEF, A-fib on Eliquis, bradycardia s/p pacemaker placement in 2022, hypothyroidism,chronic back pain, IDDM II, and hypertension was brought in from home by ambulance for complaints of worsening shortness of breath. No further history obtained from EMS, at the ED patient's BP 75/50 with heart rate of 102 and temp 105.1, labs were pH 7.29 WBC 24, creatinine 2.2, lactate 6, troponin 45, BNP 2800, Pro-Jamshid 23, and TSH of 6. ABG pH 7.29 and pCO2 of 41. CXR showed significant right lobar pneumonia with UA noted for high WBC/RBC/epithelial cells. Head CT was negative for acute findings, patient was intubated, femoral central line along with femoral arterial line were placed in ED. Patient received 3L of LR boluses, received 1 dose of ceftriaxone and azithromycin and was started on Levophed along with dobutamine. Patient will be admitted to ICU for further management and care of septic shock along with acute hypoxic respiratory failure in setting of community-acquired pneumonia. Interval History 9/6/25: Patient was examined at bedside; she is currently intubated and chemically induced on fentanyl drip to maintain RASS score -2 for mechanical ventilation. Current plan is to continue IV NS maintenance @ 100 mL/hr, IV cefepime 2 gm qD (started 05/10 @ 09:00) and IV Zithromax 250 mg qD (started 05/10 @ 09:00) for treatment of her community-acquired pneumonia, follow up on sputum culture to guide antibiotic de-escalation, and continue PO Cordarone 200 mg qD and PO Eliquis 2.5 mg BID (both started 05/10 @ 09:00) for treatment of her atrial fibrillation. Of note, patient's endotracheal tube was somehow dislodged today and required readjustment via bronchoscope to return the tube to its proper position. Will continue to monitor patient as her pneumonia is treated (including the performance of daily awakening trials) with the hope that resolution of the infection will remove her state of septic shock and ongoing acute hypoxic respiratory failure (disposition condition requires successful weaning off of ventilatory support and pressors). 05/11/2025: Overnight patient was given magnesium sulfate 4 g IV x 1. Ventilator on AC MV, VT 400, RR 20, PEEP 5, FiO2 40%. On fentanyl infusion, RASS -2. Input 2976, output 20 cc, balance +2956 cc. Patient responsive to noxious stimuli but RASS appears closer to -3, will wean sedation. Labs showed NA 138, K4.1, bicarb 19.4, BUN 36, CR 3.6, Phos 5.5. ABG pH 7.26, pCO2 41. Blood and sputum cultures pending, sputum Gram stain grew 4 plus GPC preliminary. Currently on Levophed infusion, titrating as necessary. Today will give 500 cc normal saline IVF bolus for fluid challenge. If urine output does not improve, will consult nephrology for possible urgent hemodialysis. 05/12/2025: Overnight sedation was weaned, no other events. Input 1165, output 0 cc. Patient remains intubated and mechanically ventilated, RASS -2 on fentanyl and Precedex infusion. Labs showed Hb 9.7, WBC 15.9, BUN 46, CR 4.5. Right lower extremity arterial duplex showed severe right leg obstructive PAD. Today we will place temporary dialysis catheter and plan for low rate dialysis as per nephrology recommendations. 05/13/2025: No events overnight. Input 1306, output 4 5, balance +901 cc. This morning patient remains on Precedex infusion with a RASS of -1. Norepinephrine infusion was turned off overnight as well as fentanyl infusion. ABG showed pH 7.32, pCO2 43. Hb 9.4, PLT 79, K3.7, Mg 1.8, BUN 43, CR 3.4. Will continue with daily SAT's and give patient a break on pressure support for 2 hours today. No plans for extubation as yet as patient's neurological status is still unable to be assessed due to residual sedation. Bumex 2 Mg IV x 1 as per nephrology recommendations. HD will also be held today as per nephrology. 05/14/2025: Overnight patient was switched between volume control and spontaneous ventilation. Input 3120, output 1419, balance 1630. Patient remains on low- dose Precedex and following commands labs showed WBC 3, Hb 8.7, PLT 65, K3.2, bicarb 19 point, BUN 48, CR 3.4. KCl 40 mEq IV x 1, Bicitra 30 mL GT twice daily and Bumex 2 Mg IV x 1 given as per nephrology recommendation. No hemodialysis today 05/15/2025: Overnight patient's alternated between volume control and pressure support ventilation due to vent dyssynchrony. 2258 cc, output 990 cc, balance +1268 cc. This morning patient was on low-dose Precedex but responds to noxious stimuli. Blood glucose between 200?3 100s in past 24 hours. Labs showed Hb 8, PLT 81, NA 137, K3.6, HCO3 22.6, BUN 44, CR 3.2, Mg 1.8. Sputum culture grew strep pneumonia pansensitive to all tested antibiotics. Will continue to hold on hemodialysis as per nephrology recommendations and Bicitra for 1 more day. Repleted with KCl 20 mEq IV x 1, magnesium sulfate 2 g IV x 1 and de-escalated antibiotics to ceftriaxone 1 g IV daily. Increased insulin degludec to 18 units daily and switch to insulin correction scale 3. Will attempt SBT today after SAT. Also will remove femoral central line. 05/16/2025: No overnight events. Today, patient was given SBT again while sedated on low-dose Precedex (due to her history of agitation and distress while on sedation vacation) to assess her likelihood of being extubated successfully purely from a physiological standpoint (tidal volume generation, maintenance of stable respiratory rate, achievement of adequate oxygenation, etc.) with anxiety/agitation removed from the equation; SBT was passed successfully. Patient's Rapid Shallow Breathing Index (Tidal Volume / RR) was calculated to be 450/23 = 51 breaths/min/L, suggesting likely successful extubation due to being a good amount below generally accepted threshold of 105 breaths/min/L. Patient's diaphragmatic and accessory muscle strength were also assessed via Negative Inspiratory Force testing and her NIF was found to be more negative than -70 cm H2O, further supporting the likelihood of successful extubation due to being more negative than generally accepted threshold -30 cm H2O. There was also airflow heard around the endotracheal tube during cuff leak test suggesting no upper airway obstruction or edema. Due to these auspicious findings, the decision was made to extubate the patient which she seems to have been tolerating well. However, since being extubated, patient has been having hypertension with SBP sometimes surpassing 200 (but usually being in the 180s-190s) which has been refractory to IV labetalol 10 mg x2, IV tylenol (pain relief). Patient will be given IV fentanyl 25 mcg (to treat possible opiate withdrawal) and have IV hydralazine 10 mg q4HR prn for SBP>180 to see if these measures will ameliorate her significant hypertension. Her home antihypertensives will be restarted once patient can tolerate PO medications or have oral route access instated. Of note, patient has new leukocytosis with WBC elevation to 20.4 from 7.7 yesterday; her dialysis line may be the nidus of infection but removal was ultimately decided against due to it being her only route of central access. Repeat CXR was clear, lowering clinical suspicion for new pneumonia. From nephrology's standpoint, patient was noted to have made 1000 mL of urine and HD can be held until Monday at which point her need for HD will be reevaluated. 05/17/2025: Overnight patient had no events. Input 316 cc, output 550 cc, balance -253 cc. Patient examined in ICU this morning, complains of mild SOB and is mouth breathing. She is oriented x 3. Denies any chest pain/pressure, palpitations, confusion or nausea. On exam patient had inspiratory stridor. Labs showed Hb 10.8, WBC up trended to 28.7 from 20.4, K3.5, NA 142, BUN 47, CR 2.3, Mg 1.7, glucose 203. Patient on last day of a 7-day course of cefepime IV for aspiration pneumonia. D5/0.45% NS at 60 cc/h was started to avoid hyponatremia as patient is currently n.p.o. as she failed swallow evaluation, will reattempt tomorrow. Insulin degludec was increased to 20 units daily. Right foot x-rays were performed which did not show any signs of osteomyelitis. For her uptrending white cell count, etiology suspected to be VAP and a one-time dose of vancomycin IV was given. Repeat blood cultures were also ordered. Bedside ultrasound of left IJ was also performed, vessel appeared to be stenosed with possible obstruction as well. This may be due to her implantable cardiac pacemaker and multiple procedures in the past. If her RIJ temporary dialysis catheter is removed, venous access on the left IJ would not be attempted/possible due to distorted anatomy. Will attempt today to achieve peripheral IV access. Also attempts were made to contact her LAURIKDaja at [phone], but were unsuccessful. Exam Vital Signs Temp Pulse Resp BP Pulse Ox O2 Del Method O2 Flow Rate 96.5 F L 109 H 21 H 179/79 H 98 Oxy Mask 30 05/17/25 04:01 05/17/25 08:28 05/17/25 08:28 05/17/25 07:01 05/17/25 08:28 05/17/25 05:01 05/17/25 08:16 FiO2 30 05/17/25 08:28 Narrative Exam Constitutional Morbidly obese, elderly female. HEENT Normocephalic, atraumatic. PERRL. EOMI. Patent nares. Trachea midline Respiratory Chest normal on inspection and clear auscultation bilaterally, reduced air entry at bases. Inspiratory stridor, mouth breathing. Right IJ temp dialysis catheter noted. Exit site clean Cardiovascular S1 and S2 audible, RRR. No murmurs carotid bruit. No gross JVD. Abdominal Soft, obese and non tender to palpation in all quadrants. BS +. Genitourinary No bladder tenderness, no flank pain. Normal to palpation Musculoskeletal Extremities tone within normal limits. Neurological Alert and oriented x 2 [person and place]. Power 1/5 in upper EXTR and 0/5 in lower extremities Skin Bluish discoloration of great toe, 2nd, 3rd and 4th toes on right foot. Serous drainage from right toe. Absent dorsalis pedis and posterior tibial pulse on right leg. Cold extremities (right colder than left). Objective Labs 05/17/25 04:44 05/17/25 04:44 Labs: Laboratory Results - last 24 hr 05/17/25 04:44 WBC 28.7 H D RBC 3.68 L Hgb 10.8 L D Hct 34.1 L MCV 93 MCH 29.3 MCHC 31.7 RDW Std Deviation 48.9 H Plt Count 123 L Neut % (Auto) 83 H Lymph % (Auto) 6 L Meeker % (Auto) 5 Eos % (Auto) 0 Baso % (Auto) 0 Neut # (Auto) 23.8 H Lymph # (Auto) 1.6 Meeker # (Auto) 1.3 H Eos # (Auto) 0.1 Baso # (Auto) 0.0 Immature Gran # (Auto) 1.95 H Absolute Nucleated RBC 0.05 H Immature Gran % 7 H Nucleated RBC % 0 Sodium 142 Potassium 3.5 Chloride 107 Carbon Dioxide 22.2 Anion Gap 13 BUN 47 H Creatinine 2.3 H D Estim Creat Clear Calc 24.7 L eGFR 21 L BUN/Creatinine Ratio 20 Glucose 203 H D Calculated Osmolality 301 H Calcium 8.2 L Phosphorus 2.8 Magnesium 1.7 ABG Interpretation ABG results: 05/09/25 05/10/25 05/11/25 23:08 07:18 03:56 ABG pH 7.29 L 7.25 L 7.26 L ABG pCO2 41 49 H 41 ABG pO2 133 H 95 D 68 L D ABG HCO3 20 21 19 L ABG O2 Saturation 97 95 92 ABG Base Excess -7 L -6 L -8 L 05/12/25 05/13/25 05/14/25 04:09 04:02 04:18 ABG pH 7.23 L 7.32 L 7.38 ABG pCO2 44 43 34 ABG pO2 78 L 71 L 121 H D ABG HCO3 19 L 22 20 ABG O2 Saturation 94 92 97 ABG Base Excess -8 L -4 L -5 L 0905/15/25 05/15/25 13:15 04:14 05:10 ABG pH 7.41 7.38 7.41 ABG pCO2 33 40 35 ABG pO2 113 H 48 L* D 89 D ABG HCO3 21 23 23 ABG O2 Saturation 98 82 L 98 ABG Base Excess -4 L -2 -2 05/16/25 04:04 ABG pH 7.43 ABG pCO2 36 ABG pO2 84 ABG HCO3 24 ABG O2 Saturation 96 ABG Base Excess 0 Quality Measures Quality Measures VTE prophylaxis, sepsis Current suspected stage: ruled out Possible source: pulmonary Blood cultures ordered: yes Antibiotic ordered: Yes and none Advance care planning discussed with:: patient Assessment & Plan Assessment Current Active Medications: Generic Name Dose Route Start Last Admin Trade Name Freq PRN Reason Stop Dose Admin Acetaminophen 650 mg 05/10/25 04:13 05/10/25 21:34 Acetaminophen 325 Mg Tablet PO 06/09/25 04:12 650 mg Q4HR PRN Administration PAIN SCALE 1-3 (mild Acetaminophen 650 mg 05/10/25 04:13 Acetaminophen Supp 650 Mg Supp MA 06/09/25 04:12 Q4HR PRN PAIN SCALE 1-3 (mild Al Hydrox/Mg Hydrox/Simethicone 30 ml 05/10/25 04:13 Mg Hyd/Al Hyd/Jackeline (Maalox Reg) Susp 30 Ml Udc PO 06/09/25 04:12 Q4HR PRN Heartburn or Upset Stomach Amiodarone HCl 200 mg 05/10/25 09:00 05/17/25 09:49 Amiodarone Hcl 200 Mg Tablet PO 06/09/25 08:59 Not Given On Hold: 05/17/25 09:49 QDAY YURY Artificial Tears 0 drop 05/13/25 14:52 05/16/25 23:58 Artificial Tears 225 Drop/15 Ml Btl BOTH EYES 06/12/25 14:51 2 drops PRN PRN Administration TO KEEP EYES MOIST Ascorbic Acid 500 mg 05/17/25 09:00 05/17/25 09:49 Ascorbic Acid 250 Mg Tablet PO 06/16/25 08:59 Not Given BID YURY Carvedilol 3.125 mg 05/15/25 21:00 05/17/25 09:49 Carvedilol 3.125 Mg Tablet PO 10/11/25 20:59 Not Given BID YURY Dextrose 25 ml 05/10/25 04:27 Dextrose 50%-Water Inj 50 Ml Syringe IV 06/09/25 04:26 Q15MIN PRN BG 50-70 responsive npo pt Dextrose 50 ml 05/10/25 04:27 Dextrose 50%-Water Inj 50 Ml Syringe IV 06/09/25 04:26 Q15MIN PRN BG <50 OR BG <70 & pt unresponsive Epinephrine 0.5 ml 05/17/25 08:00 05/17/25 08:28 Epinephrine Rt Suma 0.5 Ml Nebu INH 0.5 ml Q10MIN PRN Administration STRIDOR Escitalopram Oxalate 20 mg 05/10/25 09:00 05/17/25 09:49 Escitalopram Oxalate 10 Mg Tablet PO 06/09/25 08:59 Not Given QDAY YURY Glucagon 1 mg 05/10/25 04:27 Glucagon Inj 1 Mg Vial IM Q15MIN PRN BG <70, and no IV access Heparin Sodium (Porcine) 2,600 unit 05/12/25 11:51 05/12/25 13:57 Heparin Sod Inj 1000 Unit/Ml Vial 10 Ml INDWELLCAT 05/26/25 11:50 2,600 unit X1 PRN Administration DIALYSIS Heparin Sodium (Porcine) 5,000 unit 05/16/25 14:00 05/17/25 06:19 Heparin Sod Inj 5000 Unit/Ml Vial SC 05/30/25 13:59 5,000 unit Q8HR YURY Administration Hydralazine HCl 10 mg 05/16/25 16:02 05/17/25 06:26 Hydralazine Inj 20 Mg/Ml Vial IVP 06/15/25 16:01 10 mg Q4H PRN Administration SBP>180 Dexmedetomidine/Sodium Chloride 400 mcg in 100 mls @ 5.37 mls/hr 05/11/25 17:04 05/16/25 10:25 Precedex Ivpb IV 06/10/25 17:03 0 mcg/kg/hr .[id number] PRN 0 mls/hr Per PROTOCOL Titration Protocol 0.2 MCG/KG/HR Dextrose/Sodium Chloride 1,000 mls @ 60 mls/hr 05/17/25 08:42 D5-1/2ns IV 05/18/25 01:21 .[id number] ONE Vancomycin HCl/Dextrose 300 mls @ 120 mls/hr 05/17/25 09:00 Vancomycin/D5w 1500 Mg Ivpb IV 05/17/25 11:29 X1 ONE Amiodarone HCl/Dextrose 360 mg in 200 mls @ 16.667 mls/hr 05/17/25 09:49 Nexterone Ivpb IV 05/18/25 09:48 .Q12H YURY Insulin Degludec 20 unit 05/17/25 09:00 Insulin Degludec 5 Unit/0.05 Ml (Per 5 Units) SC 06/16/25 08:59 QDAY YURY Insulin Human Lispro 0 unit 05/15/25 12:00 05/17/25 06:22 Insulin Lispro (Admelog) 1 Unit/0.01 Ml Unit SC 06/09/25 11:59 3 unit Q6HR [facility] Administration Protocol Levothyroxine Sodium 75 mcg 05/10/25 09:00 05/17/25 05:23 Levothyroxine Sodium 25 Mcg Tablet PO 06/09/25 08:59 Not Given ACBR YURY Losartan Potassium 50 mg 05/16/25 13:30 05/16/25 15:14 Losartan Potassium 25 Mg Tablet PO 06/15/25 13:29 Not Given On Hold: 05/16/25 13:31 QDAY YURY Magnesium Hydroxide 30 ml 05/10/25 04:13 Milk Of Magnesia Susp 30 Ml Udc PO 06/09/25 04:12 QDAY PRN CONSTIPATION Metoprolol Tartrate 5 mg 05/15/25 14:16 05/15/25 17:17 Metoprolol Tartrate Inj 1 Mg/Ml Amp 5 Ml IVP 06/14/25 14:15 5 mg Q10MIN PRN Administration HR>130 Multivitamins 1 tab 05/17/25 09:00 05/17/25 09:50 Multivitamins Tablet PO 06/16/25 08:59 Not Given QDAY YURY Pantoprazole Sodium 40 mg 05/10/25 11:00 05/16/25 08:34 Pantoprazole Inj 40 Mg Vial IVP 06/09/25 10:59 40 mg QDAY YURY Administration Pharmacy Consult 1 each 05/17/25 09:00 Vancomycin Pharmacy To Dose 1 Each Each IV 06/16/25 08:59 QDAY PRN PROTOCOL Pharmacy Consult 1 each 05/17/25 08:40 Pharmacy Renal Dose Adjustment 1 Ea XX 06/16/25 08:39 PRN PRN CONSULT Sodium Chloride 1 spray 05/17/25 07:35 Saline Nasal 45 Ml Btl NASAL 06/16/25 07:34 PRN PRN CONGESTION Sodium Chloride 3 ml 05/17/25 07:57 05/17/25 08:28 Sodium Chloride Rt Suma 0.9% 3 Ml Nebu INH 06/16/25 07:56 3 ml PRN PRN Administration SOLN Zinc Sulfate 220 mg 05/17/25 09:00 05/17/25 09:50 Zinc Sulfate 220 Mg Capsule PO 05/31/25 08:59 Not Given QDAY YURY Plan 80 year-old female with PMHx noted for HFpEF, A-fib on Eliquis, bradycardia s/p pacemaker placement in 2022, hypothyroidism,chronic back pain, IDDM II, and hypertension admitted to ICU for further management and care of septic shock along with acute hypoxic respiratory failure in setting of community-acquired pneumonia. No overnight events. Today, patient was given SBT again while sedated on low- dose Precedex (due to her history of agitation and distress while on sedation vacation) to assess her likelihood of being extubated successfully purely from a physiological standpoint (tidal volume generation, maintenance of stable respiratory rate, achievement of adequate oxygenation, etc.) with anxiety/agitation removed from the equation; SBT was passed successfully. Patient's Rapid Shallow Breathing Index (Tidal Volume / RR) was calculated to be 450/23 = 51 breaths/min/L, suggesting likely successful extubation due to being a good amount below generally accepted threshold of 105 breaths/min/L. Patient's diaphragmatic and accessory muscle strength were also assessed via Negative Inspiratory Force testing and her NIF was found to be more negative than -70 cm H2O, further supporting the likelihood of successful extubation due to being more negative than generally accepted threshold -30 cm H2O. There was also airflow heard around the endotracheal tube during cuff leak test suggesting no upper airway obstruction or edema. Due to these auspicious findings, the decision was made to extubate the patient which she seems to have been tolerating well. However, since being extubated, patient has been having hypertension with SBP sometimes surpassing 200 (but usually being in the 180s-190s) which has been refractory to IV labetalol 10 mg x2, IV tylenol (pain relief). Patient will be given IV fentanyl 25 mcg (to treat possible opiate withdrawal) and have IV hydralazine 10 mg q4HR prn for SBP>180 to see if these measures will ameliorate her significant hypertension. Her home antihypertensives will be restarted once patient can tolerate PO medications or have oral route access instated. Of note, patient has new leukocytosis with WBC elevation to 20.4 from 7.7 yesterday; her dialysis line may be the nidus of infection but removal was ultimately decided against due to it being her only route of central access. Repeat CXR was clear, lowering clinical suspicion for new pneumonia. From nephrology's standpoint, patient was noted to have made 1000 mL of urine and HD can be held until Monday at which point her need for HD will be reevaluated. 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: #Encephalopathy s/p extubation and prolonged sedation #likely 2/2 post-sedation fatigue Patient was successfully extubated today after being intubated and sedated for more than 6 days (with daily SATs and SBTs when appropriate) Upon assessing patient around 6-8 hours s/p extubation, patient is awake with eyes open but does not make eye contact with or verbally respond to this consumer loan underwriter when her name is called and does not follow commands (but moves her head in response to noise stimuli) Later in the night (05/16, 18:50), patient is now making eye contact and following commands According to patient's partner, patient does not have baseline dementia At this moment in time, most favored working diagnosis is normal transient fatigue s/p prolonged extubation and sedation (too early to suspect ICU delirium) DDx: normal transient fatigue s/p prolonged extubation and sedation, consider ICU delirium if symptoms persist Dx: - Patient ANO x 2 but still very weak and has 2/5 power in upper extremities and 0/5 power in lower extremities. ? PT attempted to work with patient today but assessment was limited due to no mobility by patient. Rx: -Continue to monitor as patient's mental status is expected to improve with time RRx: - Patient continues to be drowsy off of sedation, but will consider CAM-ICU screening criteria for ICU delirium if encephalopathy persists over 24 hours ? Reassess tomorrow. CVS: #HFpEF [EF 50-55%] Dx: -05/10 TTE: Mild LVH. Estimated EF at 50-55%. There is grade I diastolic dysfunction. The RV size is mildly increased with normal systolic function. Huertas sign present. Rx: ?Can consider resuming Guideline-Directed Medical Therapy once patient can tolerate PO medications (though most evidence for mortality benefit and QOL improvement of GDMT is for HFrEF w/ EF<40%): 1. RAAS inhibitor: restart patient's home PO losartan 50 mg qD 2. Beta-eligio: restart patient's home PO carvedilol 3.125 mg qD 3. Mineralocorticoid receptor antagonist: patient does not seem to have a home medication of this drug class 4. SGLT-2 inhibitor: patient does not seem to have a home medication of this drug class #Atrial fibrillation?paroxysmal Dx: -From telemetry review patient is in sinus rhythm with rates between 80s?100s overnight ? [id number]: 9 points [12.2% stroke risk per year] Has bled 4 points [high risk of major bleeding] Rx: - Amiodarone p.o. held as patient's failed swallow evaluation. ? Started on amiodarone IV at 0.5 mg/KG for today #Peripheral arterial disease Patient noted to have reduced pulses on right leg. Toes on right foot appear blue Dx: Right lower extremity arterial duplex ultrasound showed severe obstructive PAD. No flow posterior tibial artery. Rx: -Outpatient follow-up once patient gets over this acute phase of her illness. RRx: - Discoloration on patient's foot has now demarcated and now developed into a bullae with serous drainage. ? Continue wound care as per wound care nurse. PULM: #Stridor DDx: Postextubation laryngeal edema, laryngotracheobronchitis Dx: On exam patient had inspiratory stridor and mouth breathing Rx: - BiPAP to reduce patient's work of breathing by increasing airway diameter ? Dexamethasone 8 mg IV x 1 ? Racemic epinephrine nebulization as needed #Acute hypoxic respiratory failure secondary to community-acquired pneumonia, requiring intubation (resolving) Patient is slated to finish her last dose of IV cefepime on 05/17 By 05/17, she will have completed 7-day course IV cefepime 2 gm qD and 5-day course IV Zithromax 250 mg qD Dx: -Per Rads, 05/16 CXR shows significant right lung pneumonia, being notably extensive in the RUL -05/16 WBC elevation from 7.7 to 20.4 -05/10 MRSA Screen (+) -05/09 BCx both (-) -05/09 sputum culture grew pansensitive Streptococcus pneumoniae Rx: - Cefepime 2 g IV daily [05/10/?05/17] Renal: #KRYSTAL on CKD (resolving) Patient's urine output today was 550 mL DDx:Prerenal KRYSTAL in setting of septic shock, ATN Dx: BUN 47, CR 2.3 Rx: -Per nephrology recommendations, patient will not need HD over the weekend (05/17-05/18) due to improving kidney function and her need for HD will be re- evaluated on Monday (05/19) RRx: -Follow-up on renal panel and monitor urine output. Hypokalemia Hypomagnesemia Dx: Possible secondary to critical illness Rx: Repleted with KCl 40 mEq IV x 1 and magnesium sulfate 2 g IV x 1 RRx: Follow BMP tomorrow morning Endocrine #IDDM II Patient on 30 units of insulin glargine daily at home along with regular insulin Blood glucose were 200s in past 24 hours. Rx: -Increased insulin degludec to 20 units SC daily - Continue insulin correction scale to step 3 RRx: To monitor blood glucose and titrate insulin accordingly #Hx of Hypothyroidism Dx: TSH elevated at 6 with normal FT4 Rx: - Held home medication levothyroxine 75 mcg p.o. AC BR due to patient being n.p.o. ? Started on levothyroxine 35 micrograms IV daily GI: #No active issues Heme: #Leukocytosis DDx: VAP, aspiration pneumonia Dx: - WBC 7.7 - > 20.4 -> 28.7 -Per Rads, 05/16 CXR shows significant right lung pneumonia, being notably extensive in the RUL -05/15 UCx results pending -05/10 MRSA Screen (+) Rx: - One-time dose of vancomycin IV given due to suspicion for valve in setting of uptrending WBC. Patient has however remained afebrile RRx: -Monitor CBC and monitor for infectious signs or fever #Chronic normocytic anemia DDx: Anemia of chronic disease, CKD Dx: Hb 10.8 Rx: Continue to monitor CBC. #Thrombocytopenia DDx: sepsis, ckd Dx: Plt 81 -> 123 Rx: monitor for signs of bleeding and cbc ID: #Community-acquired pneumonia Dx: -See Respiratory section. Rx: -See Respiratory section. Skin: Right foot bullae DDx: Cellulitis, dependent edema, severe PAD, osteomyelitis Dx: - On exam right foot appears discolored with absent DP and PT pulses - 05/17 Foot x-ray did not show any overt signs of osteomyelitis Rx: ? Continue wound care as per wound care nurse ICU Health Maintenance: Dispo: BiPAP, IV antibiotics Diet: NPO DVT ppx: SCDs GI ppx: Protonix 40mg qD IV lines: 0 Central line: Yes RIJ on 05/12- Arterial line: No Mena: No [05/10 - 05/16] Code status: FULL CODE Plan of care discussed with Attending Dr. Sammie Eason MD PGY 2 Disclaimer: This note was dictated by speech recognition. Minor errors in courtesy clerk may be present due to voice recognition software.
[2025-05-17] MEDS: INSULIN DEGLUDEC 5 UNIT/0.05 ML (PER 5 UNITS) 20 UNIT SC (09:55)
[2025-05-17] MEDS: DEXAMETHASONE SOD PHOS INJ 4 MG/ML VIAL 8 MG IV (09:56)
[2025-05-17] MEDS: DEXTROSE 5%-0.45% NS 1,000 ML 60 ML IV (09:56)
[2025-05-17] MEDS: AMIODARONE 360 MG IVPB 360 MG/200 ML BAG 16.667 MG IV ×2 (10:04→22:26)
[2025-05-17] MEDS: VANCOMYCIN/D5W 1500 MG IVPB 300 ML 120 MG IV (10:05)
--- NOTE | 2025-05-17 10:55 | ESPR_ITS ---
Documentation for date of: 05/17/25 Subjective Subjective Interval history: History of Presenting Illness: Patient is 80y/o F with PMH of HFpEF, A-fib on Eliquis, bradycardia s/p pacemaker placement in 2022, hypothyroidism,chronic back pain, IDDM II, and hypertension presented to the hospital due to worsening shortness of breathe. Per ICU note, no further history was obtained from the patient from EMS. Patient has been admitted to ICU for management of septic shock and acute hypoxic respiratory failure with community acquired pneumonia. Patient has been consulted to nephrology for management of KRYSTAL on CKD and possibility of hemodialysis. ED course: No further history obtained from EMS, at the ED patient's BP 75/50 with heart rate of 102 and temp 105.1, labs were pH 7.29 WBC 24, creatinine 2.2, lactate 6, troponin 45, BNP 2800, Pro-Jamshid 23, and TSH of 6. ABG pH 7.29 and pCO2 of 41. CXR showed significant right lobar pneumonia with UA noted for high WBC/RBC/epithelial cells. Head CT was negative for acute findings, patient was intubated, femoral central line along with femoral arterial line were placed in ED. Patient received 3L of LR boluses, received 1 dose of ceftriaxone and azithromycin and was started on Levophed along with dobutamine. PMH: Diabetes, HFpEF, A-fib, hypothyroidism, HTN, chronic back pain PSH: Cholecystectomy, 3 back surgeries SH: Does not drink or use illicit drugs. Smoked 1 pack a day for many years , quit 3 months ago. Allergies:?sulfa Medications: amiodarone, amlodipine, eliquis, atorvastatin, bupropion, escitalopram, gabapentin, hydromorphone, Lantus, levothyroxine, Reglan, pioglitazone, trazodone, montelukast. 05/11/2025: Patient unarousable and minimally interactive. BP: 108/58 Cr: 3.6, eGFR: 12, BUN:36 pH: 7.26, Urine Output: 20ml. Continue to monitor Urine output. If no improvement, then likely hemodialysis tomorrow. 05/17/2025 patient currently seen in ICU. Extubated although unable to raise her hands due to significant critical illness polyneuropathy. Patient currently on BiPAP. Creatinine improving. Decreased p.o. intake-ICU team give IV fluids. Clinically patient looks rather hypervolemic. If no improvement in urine output we will do Bumex. Hold off on dialysis today. Labs/medications reviewed. Right IJ dialysis catheter could not be removed due to lack of venous access. Review of Systems Review of Systems Narrative Review of Systems: Limited due to being on BiPAP. Arousable but barely able to move her extremities. Exam Vital Signs Temp Pulse Resp BP Pulse Ox O2 Del Method O2 Flow Rate 36.2 C 109 H 34 H 124/75 99 Room Air 2 05/17/25 08:01 05/17/25 10:43 05/17/25 10:43 05/17/25 10:04 05/17/25 10:43 05/17/25 08:01 05/17/25 05:01 FiO2 30 05/17/25 10:43 Narrative Exam GENERAL APPEARANCE: Patient currently seen in ICU. On BiPAP NECK: Neck supple, no JVD or bruit CARDIOVASCULAR: Heart regular, no murmurs LUNGS/CHEST: Chest clear to auscultation. No rales, rhonchi, wheezing ABDOMEN: Soft, nontender, nondistended. No masses. Normal bowel sounds. EXTREMITIES: 2+ edema noted in the extremities SKIN: Cyanotic changes noted in the right close MUSCULOSKELETAL: in bed NEUROLOGICAL : Awake, able to follow simple commands. Significant weakness noted in extremities Objective Labs 05/17/25 04:44 05/17/25 04:44 Labs: Laboratory Results - last 24 hr 05/17/25 04:44 WBC 28.7 H D RBC 3.68 L Hgb 10.8 L D Hct 34.1 L MCV 93 MCH 29.3 MCHC 31.7 RDW Std Deviation 48.9 H Plt Count 123 L Neut % (Auto) 83 H Lymph % (Auto) 6 L [place] % (Auto) 5 Eos % (Auto) 0 Baso % (Auto) 0 Neut # (Auto) 23.8 H Lymph # (Auto) 1.6 [place] # (Auto) 1.3 H Eos # (Auto) 0.1 Baso # (Auto) 0.0 Immature Gran # (Auto) 1.95 H Absolute Nucleated RBC 0.05 H Immature Gran % 7 H Nucleated RBC % 0 Sodium 142 Potassium 3.5 Chloride 107 Carbon Dioxide 22.2 Anion Gap 13 BUN 47 H Creatinine 2.3 H D Estim Creat Clear Calc 24.7 L eGFR 21 L BUN/Creatinine Ratio 20 Glucose 203 H D Calculated Osmolality 301 H Calcium 8.2 L Phosphorus 2.8 Magnesium 1.7 ABG Interpretation ABG results: 05/09/25 05/10/25 05/11/25 23:08 07:18 03:56 ABG pH 7.29 L 7.25 L 7.26 L ABG pCO2 41 49 H 41 ABG pO2 133 H 95 D 68 L D ABG HCO3 20 21 19 L ABG O2 Saturation 97 95 92 ABG Base Excess -7 L -6 L -8 L 05/12/25 05/13/25 05/14/25 04:09 04:02 04:18 ABG pH 7.23 L 7.32 L 7.38 ABG pCO2 44 43 34 ABG pO2 78 L 71 L 121 H D ABG HCO3 19 L 22 20 ABG O2 Saturation 94 92 97 ABG Base Excess -8 L -4 L -5 L 05/14/25 05/15/25 05/15/25 13:15 04:14 05:10 ABG pH 7.41 7.38 7.41 ABG pCO2 33 40 35 ABG pO2 113 H 48 L* D 89 D ABG HCO3 21 23 23 ABG O2 Saturation 98 82 L 98 ABG Base Excess -4 L -2 -2 05/16/25 04:04 ABG pH 7.43 ABG pCO2 36 ABG pO2 84 ABG HCO3 24 ABG O2 Saturation 96 ABG Base Excess 0 Assessment & Plan Additional Assessment & Plan Additional Plan: Patient is 80y/o F with PMH of HFpEF, A-fib on Eliquis, bradycardia s/p pacemaker placement in 2022, hypothyroidism,chronic back pain, IDDM II, and hypertension presented to the hospital due to worsening shortness of breathe. Per ICU note, no further history was obtained from the patient from EMS. Patient has been admitted to ICU for management of septic shock and acute hypoxic respiratory failure with community acquired pneumonia. Patient has been consulted to nephrology for management of KRYSTAL on CKD and possibility of hemodialysis. #KRYSTAL-most likely related to ATN- underlying shock #Anemia -Upon admission, BUN: 20, Cr:2.2 (Baseline 1.3), eGFR: 22 -Likely prerenal 2/2 sepsis, -Patient has minimal edema, lungs clear, mucus membranes moist. -CXR (05/10/2025): Severe pneumonia right lung pneumonia noted -Currently, BP: 84/66 Cr: 4.5, BUN:46, eGFR:9, pH: 7.23. Plan: will hold HD today, reeval in am after IVF are given. Cannot remove dialysis catheter due to lack of venous access. White count still elevated. -Avoid nephrotoxins -Renally dose medication #Acute encephalopathy #Septic shock 2/2 CAP- better #HFpEF #NSTEMI likely type II #Atrial fibrillation-on amiodarone drip #IDDM II #Hx of Hypothyroidism #Elevated T. bili #Leukocytosis #Community-acquired pneumonia - Management per ICU team Care discussed with ICU team
--- NOTE | 2025-05-17 12:12 | PC.PT ---
05/17/2025 PT assessment performed w/ pt able to open eyes but no AROM observed in extremities. Hands swollen so PT repositioined on pillows after PROM of UEs. almost no PROM in LEs. and RN immediately notified of assessment results.
[2025-05-18] VITALS (65 sets, daily range): BP systolic 129–201; BP diastolic 64–109; PULSE 73–108; RESP 0–42; TEMP 36.1–36.6; O2SAT 78–100
[2025-05-18] MEDS: INSULIN LISPRO (AdmeLOG) 1 UNIT/0.01 ML UNIT SC ×4 (00:41→23:40)
[2025-05-18] MEDS: LABETALOL INJ 5 MG/ML VIAL 20 ML 10 MG IVP ×2 (00:42→23:22)
[2025-05-18 05:17] LABS: Basophils # (Auto) 0.1 Thou/mm3 (0.0-0.2); Basophils % (Auto) 0 % (0-2.5); Eosinophils # (Auto) 0.0 Thou/mm3 (0.0-0.5); Eosinophils % (Auto) 0 % (0-10); Hematocrit 29.7 % (36.0-46.0); Hemoglobin 9.7 g/dL (12.0-16.0); Immature Granulocytes Auto 2.24 Thou/mm3 (0.00-0.00); Lymphocytes # (Auto) 1.2 Thou/mm3 (1.0-4.8); Lymphocytes % (Auto) 4 % (10-50); Mean Corpuscular HGB Conc 32.7 g/dl (31.0-37.0); Mean Corpuscular Hemoglobin 29.9 pg (25.0-35.0); Mean Corpuscular Volume 92 fL (80-100); Monocytes # (Auto) 1.0 Thou/mm3 (0.0-0.8); Monocytes % (Auto) 3 % (0-12); Neutrophils # (Auto) 28.4 Thou/mm3 (1.8-7.7); Neutrophils % (Auto) 86 % (37-80); Nucleated Red Blood Cell # 0.06 Thou/mm3 (0.00-0.00); Nucleated Red Blood Cell % 0 /100 WBC (0); Platelet Count 162 Thou/mm3 (140-440); RDW Standard Deviation 48.1 fL (36.4-46.3); Red Blood Count 3.24 Miln/mm3 (4.00-5.20); White Blood Count 33.0 Thou/mm3 (3.6-11.0)
[2025-05-18 05:35] LABS: Alanine Aminotransferase 42 U/L (10-49); Albumin, Serum 2.9 gm/dL (3.4-4.8); Albumin/Globulin Ratio 1.2 (1.2-2.2); Alkaline Phosphatase 57 U/L (46-116); Anion Gap 11 (7-16); Aspartate Amino Transferase 24 U/L (0-34); BUN/Creatinine Ratio 27 Ratio (12-20); Bilirubin,Total 0.2 mg/dL (0.3-1.2); Blood Urea Nitrogen 52 mg/dL (9-23); Calcium 8.0 mg/dL (8.3-10.6); Calcium (Corrected) 8.9 mg/dL (8.5-10.1); Carbon Dioxide 23.3 mMol/L (20.0-31.0); Chloride 108 mMol/L (98-107); Creatinine (Component) 1.9 mg/dL (0.6-1.3); Estimated Creatinine Clearance 29.9 mL/min (>60); Globulin 2.5 gm/dL (2.3-3.5); Glucose 271 mg/dL (74-106); Magnesium 1.9 mg/dL (1.6-2.6); Osmolality,Calculated 307 (275-295); Phosphorous 3.2 mg/dL (2.4-5.1); Potassium 3.3 mMol/L (3.4-5.1); Sodium 142 mMol/L (136-145); Total Protein 5.4 gm/dL (5.7-8.2); Vancomycin,Random 13.3 mcg/mL; eGFR 26 See Note
[2025-05-18] MEDS: HEPARIN SOD INJ 5000 UNIT/ML VIAL SC ×3 (05:38→21:16)
--- NOTE | 2025-05-18 07:49 | ESPR_ITS ---
Documentation for date of: 05/18/25 Subjective Subjective Interval history: Patient is 80y/o F with PMH of HFpEF, A-fib on Eliquis, bradycardia s/p pacemaker placement in 2022, hypothyroidism,chronic back pain, IDDM II, and hypertension presented to the hospital due to worsening shortness of breathe. Per ICU note, no further history was obtained from the patient from EMS. Patient has been admitted to ICU for management of septic shock and acute hypoxic respiratory failure with community acquired pneumonia. Patient has been consulted to nephrology for management of KRYSTAL on CKD and possibility of hemodialysis. ED course: No further history obtained from EMS, at the ED patient's BP 75/50 with heart rate of 102 and temp 105.1, labs were pH 7.29 WBC 24, creatinine 2.2, lactate 6, troponin 45, BNP 2800, Pro-Jamshid 23, and TSH of 6. ABG pH 7.29 and pCO2 of 41. CXR showed significant right lobar pneumonia with UA noted for high WBC/RBC/epithelial cells. Head CT was negative for acute findings, patient was intubated, femoral central line along with femoral arterial line were placed in ED. Patient received 3L of LR boluses, received 1 dose of ceftriaxone and azithromycin and was started on Levophed along with dobutamine. PMH: Diabetes, HFpEF, A-fib, hypothyroidism, HTN, chronic back pain PSH: Cholecystectomy, 3 back surgeries SH: Does not drink or use illicit drugs. Smoked 1 pack a day for many years , quit 3 months ago. Allergies:?sulfa Medications: amiodarone, amlodipine, eliquis, atorvastatin, bupropion, escitalopram, gabapentin, hydromorphone, Lantus, levothyroxine, Reglan, pioglitazone, trazodone, montelukast. 05/11/2025: Patient unarousable and minimally interactive. BP: 108/58 Cr: 3.6, eGFR: 12, BUN:36 pH: 7.26, Urine Output: 20ml. Continue to monitor Urine output. If no improvement, then likely hemodialysis tomorrow. 05/12/2025: Labs reviewed and patient examined at the ICU. Patient is unarousable and unable to be questioned or interact with medical providers. BP: 84/66 Cr: 4.5, BUN:46, eGFR:9, pH: 7.23. Urine Output: 30ml. Patient will receive conventional Hemodialysis today for 3 hours. CRRT is not indicated at this time. will continue to montior renal function. 05/13/2025: Labs reviewed and patient examined at the ICU. Patient is still unarousable and unable to be questioned or interact with medical providers. BP: 136/67 Cr: 3.4, BUN:43, eGFR:13, pH: 7.32. Urine Output: 295ml. Patient's Creatinine is getting better. Will hold hemodialysis for today . Given Bumex 2mg x1 because of bilateral lower extremity swelling. 05/14/2025: Labs reviewed and patient examined at the ICU. Patient continues to be in unconscious state: BP:121/55 Cr: 3.4, BUN: 48, eGFR: 13, pH:7.38, Urine Output: 1.49L.Bicarb: 19.9. Patient is continuing to good urine, Creatinine is stable. No need for hemodialysis today. Patient has low bicarb likely due to diarrhea. Given bicitrate 30ml bid PO. Given Bumex 2mg IV x1. 05/15/2025: Labs reviewed and patient examined at the ICU. Patient continues to be in unconscious state. BP: 125/46, Cr: 3.2, BUN: 44, eGFR: 14. ABG pH: 7.41, Urine output: 990ml. Patient is continuing to good urine, Creatinine is stable. No need for hemodialysis. Continue to monitor renal function. 05/17/2025: patient currently seen in ICU. Extubated although unable to raise her hands due to significant critical illness polyneuropathy. Patient currently on BiPAP. Creatinine improving. Decreased p.o. intake-ICU team give IV fluids. Clinically patient looks rather hypervolemic. If no improvement in urine output we will do Bumex. Hold off on dialysis today. Labs/medications reviewed. Right IJ dialysis catheter could not be removed due to lack of venous access. 05/18/2025: Labs reviewed and patient examined at the ICU. Patient is arousable. Able to follow basic commends. Creatinine stable. Urine output: 1.3 L. Continue to monitor renal function. Bumex if needed. Cr: 1.9, BUN:52, eGFR:26 VBG pH: 7.49 Exam Vital Signs Temp Pulse Resp BP Pulse Ox O2 Del Method O2 Flow Rate 97.2 F 88 27 H 180/89 H 97 Oxy Mask 2 05/18/25 04:01 05/18/25 07:31 05/18/25 07:31 05/18/25 07:31 05/18/25 07:31 05/18/25 04:01 05/18/25 04:01 FiO2 30 05/17/25 12:01 Narrative Exam General: Intubated. Arousable. Eye: normal conjunctiva, no scleral icterus HENT: Normocephalic, atraumatic, moist oral mucosa Neck: Supple, non-tender, no JVD, no lymphadenopathy Lungs: Non-labored respirations, symmetric chest rise, Clear to auscultate bilaterally, No wheezing, rhonchi, crackles Heart: Peripheral pulses intact bilaterally, Regular Rate and Rhythm, No pitting edema of bilateral LEs. Abdomen: Soft, non-tender, non-distended, no palpable masses Musculoskeletal: No visible joint swelling, +1 bilateral lower extremity swelling. Skin: Skin is warm, dry, no rashes or lesions. Neuro:intubated, sedated Objective Labs 05/19/25 06:12 05/19/25 19:16 Labs: Laboratory Results - last 24 hr 05/18/25 04:37 WBC 33.0 H RBC 3.24 L Hgb 9.7 L Hct 29.7 L MCV 92 MCH 29.9 MCHC 32.7 RDW Std Deviation 48.1 H Plt Count 162 D Neut % (Auto) 86 H Lymph % (Auto) 4 L [place] % (Auto) 3 Eos % (Auto) 0 Baso % (Auto) 0 Neut # (Auto) 28.4 H Lymph # (Auto) 1.2 [place] # (Auto) 1.0 H Eos # (Auto) 0.0 Baso # (Auto) 0.1 Immature Gran # (Auto) 2.24 H Absolute Nucleated RBC 0.06 H Immature Gran % 7 H Nucleated RBC % 0 Sodium 142 Potassium 3.3 L Chloride 108 H Carbon Dioxide 23.3 Anion Gap 11 BUN 52 H Creatinine 1.9 H Estim Creat Clear Calc 29.9 L eGFR 26 L BUN/Creatinine Ratio 27 H Glucose 271 H D Calculated Osmolality 307 H Calcium 8.0 L Corrected Calcium 8.9 Phosphorus 3.2 Magnesium 1.9 Total Bilirubin 0.2 L AST 24 ALT 42 Alkaline Phosphatase 57 Total Protein 5.4 L Albumin 2.9 L Globulin 2.5 Albumin/Globulin Ratio 1.2 Random Vancomycin 13.3 ABG Interpretation ABG results: 05/09/25 05/10/25 05/11/25 23:08 07:18 03:56 ABG pH 7.29 L 7.25 L 7.26 L ABG pCO2 41 49 H 41 ABG pO2 133 H 95 D 68 L D ABG HCO3 20 21 19 L ABG O2 Saturation 97 95 92 ABG Base Excess -7 L -6 L -8 L 05/12/25 05/13/25 05/14/25 04:09 04:02 04:18 ABG pH 7.23 L 7.32 L 7.38 ABG pCO2 44 43 34 ABG pO2 78 L 71 L 121 H D ABG HCO3 19 L 22 20 ABG O2 Saturation 94 92 97 ABG Base Excess -8 L -4 L -5 L 05/14/25 05/15/25 05/15/25 13:15 04:14 05:10 ABG pH 7.41 7.38 7.41 ABG pCO2 33 40 35 ABG pO2 113 H 48 L* D 89 D ABG HCO3 21 23 23 ABG O2 Saturation 98 82 L 98 ABG Base Excess -4 L -2 -2 05/16/25 04:04 ABG pH 7.43 ABG pCO2 36 ABG pO2 84 ABG HCO3 24 ABG O2 Saturation 96 ABG Base Excess 0 Quality Measures Quality Measures VTE prophylaxis, sepsis Current suspected stage: sepsis Possible source: pulmonary Blood cultures ordered: yes Antibiotic ordered: Yes and none Advance care planning discussed with:: patient and other Assessment & Plan Assessment Current Active Medications: Generic Name Dose Route Start Last Admin Trade Name Freq PRN Reason Stop Dose Admin Acetaminophen 650 mg 05/10/25 04:13 05/10/25 21:34 Acetaminophen 325 Mg Tablet PO 06/09/25 04:12 650 mg Q4HR PRN Administration PAIN SCALE 1-3 (mild Acetaminophen 650 mg 05/10/25 04:13 Acetaminophen Supp 650 Mg Supp AL 06/09/25 04:12 Q4HR PRN PAIN SCALE 1-3 (mild Al Hydrox/Mg Hydrox/Simethicone 30 ml 05/10/25 04:13 Mg Hyd/Al Hyd/Jackeline (Maalox Reg) Susp 30 Ml Udc PO 06/09/25 04:12 Q4HR PRN Heartburn or Upset Stomach Amiodarone HCl 200 mg 05/10/25 09:00 05/17/25 09:49 Amiodarone Hcl 200 Mg Tablet PO 06/09/25 08:59 Not Given On Hold: 05/17/25 09:49 QDAY YURY Artificial Tears 0 drop 05/13/25 14:52 05/16/25 23:58 Artificial Tears 225 Drop/15 Ml Btl BOTH EYES 06/12/25 14:51 2 drops PRN PRN Administration TO KEEP EYES MOIST Ascorbic Acid 500 mg 05/17/25 09:00 05/17/25 20:34 Ascorbic Acid 250 Mg Tablet PO 06/16/25 08:59 Not Given BID YURY Carvedilol 3.125 mg 05/15/25 21:00 05/17/25 09:49 Carvedilol 3.125 Mg Tablet PO 06/14/25 20:59 Not Given On Hold: 05/17/25 11:00 BID YURY Dextrose 25 ml 05/10/25 04:27 Dextrose 50%-Water Inj 50 Ml Syringe IV 06/09/25 04:26 Q15MIN PRN BG 50-70 responsive npo pt Dextrose 50 ml 05/10/25 04:27 Dextrose 50%-Water Inj 50 Ml Syringe IV 06/09/25 04:26 Q15MIN PRN BG <50 OR BG <70 & pt unresponsive Epinephrine 0.5 ml 05/17/25 08:00 05/17/25 08:28 Epinephrine Rt [place] 0.5 Ml Nebu INH 0.5 ml Q10MIN PRN Administration STRIDOR Escitalopram Oxalate 20 mg 05/10/25 09:00 05/17/25 09:49 Escitalopram Oxalate 10 Mg Tablet PO 06/09/25 08:59 Not Given On Hold: 05/17/25 11:00 QDAY YURY Glucagon 1 mg 05/10/25 04:27 Glucagon Inj 1 Mg Vial IM Q15MIN PRN BG <70, and no IV access Heparin Sodium (Porcine) 2,600 unit 05/12/25 11:51 05/12/25 13:57 Heparin Sod Inj 1000 Unit/Ml Vial 10 Ml INDWELLCAT 05/26/25 11:50 2,600 unit X1 PRN Administration DIALYSIS Heparin Sodium (Porcine) 5,000 unit 05/16/25 14:00 05/18/25 05:38 Heparin Sod Inj 5000 Unit/Ml Vial SC 05/30/25 13:59 5,000 unit Q8HR YURY Administration Hydralazine HCl 10 mg 05/18/25 07:31 Hydralazine Inj 20 Mg/Ml Vial IVP 06/15/25 16:01 Q4H PRN SBP>180 Dexmedetomidine/Sodium Chloride 400 mcg in 100 mls @ 5.37 mls/hr 05/11/25 17:04 05/16/25 10:25 Precedex Ivpb IV 06/10/25 17:03 0 mcg/kg/hr .[id number] PRN 0 mls/hr Per PROTOCOL Titration Protocol 0.2 MCG/KG/HR Amiodarone HCl/Dextrose 360 mg in 200 mls @ 16.667 mls/hr 05/17/25 09:49 05/17/25 22:26 Nexterone Ivpb IV 05/18/25 09:48 16.667 mls/hr .Q12H YURY Administration Vancomycin/Sodium Chloride 100 mls @ 120 mls/hr 05/18/25 10:00 Vancomycin/Ns 500 Mg Ivpb IV 05/18/25 10:49 X1 ONE Magnesium Sulfate 2 gm in 50 mls @ 25 mls/hr 05/18/25 07:21 Magnesium Sulfate Ivpb IV 05/18/25 09:20 X1 ONE Potassium Chloride 20 meq in 100 mls @ 50 mls/hr 05/18/25 07:30 Kcl Ivpb IV 05/18/25 13:29 Q2H YURY Insulin Degludec 20 unit 05/17/25 09:00 05/17/25 09:55 Insulin Degludec 5 Unit/0.05 Ml (Per 5 Units) MN 06/16/25 08:59 20 unit QDAY YURY Administration Insulin Human Lispro 0 unit 05/15/25 12:00 05/18/25 05:37 Insulin Lispro (Admelog) 1 Unit/0.01 Ml Unit MN 06/09/25 11:59 3 unit Q6HR YURY Administration Protocol Labetalol HCl 10 mg 05/18/25 07:31 Labetalol Inj 5 Mg/Ml Vial 20 Ml IVP Q10MIN PRN SBP > 180 Levothyroxine Sodium 75 mcg 05/10/25 09:00 05/17/25 05:23 Levothyroxine Sodium 25 Mcg Tablet PO 06/09/25 08:59 Not Given On Hold: 05/17/25 11:00 ACBR YURY Levothyroxine Sodium 35 mcg 05/17/25 11:15 05/17/25 11:42 Levothyroxine Inj 100 Mcg Vial IV 06/16/25 11:14 35 mcg QDAY YURY Administration Losartan Potassium 50 mg 05/16/25 13:30 05/16/25 15:14 Losartan Potassium 25 Mg Tablet PO 06/15/25 13:29 Not Given On Hold: 05/16/25 13:31 QDAY YURY Magnesium Hydroxide 30 ml 05/10/25 04:13 Milk Of Magnesia Susp 30 Ml Udc PO 06/09/25 04:12 QDAY PRN CONSTIPATION Metoprolol Tartrate 5 mg 05/15/25 14:16 05/15/25 17:17 Metoprolol Tartrate Inj 1 Mg/Ml Amp 5 Ml IVP 06/14/25 14:15 5 mg Q10MIN PRN Administration HR>130 Multivitamins 1 tab 05/17/25 09:00 05/17/25 09:50 Multivitamins Tablet PO 06/16/25 08:59 Not Given QDAY YURY Pantoprazole Sodium 40 mg 05/10/25 11:00 05/17/25 09:53 Pantoprazole Inj 40 Mg Vial IVP 06/09/25 10:59 40 mg QDAY YURY Administration Pharmacy Consult 1 each 05/17/25 09:00 Vancomycin Pharmacy To Dose 1 Each Each IV 06/16/25 08:59 QDAY PRN PROTOCOL Pharmacy Consult 1 each 05/17/25 08:40 Pharmacy Renal Dose Adjustment 1 Ea XX 06/16/25 08:39 PRN PRN CONSULT Sodium Chloride 1 spray 05/17/25 07:35 Saline Nasal 45 Ml Btl NASAL 06/16/25 07:34 PRN PRN CONGESTION Sodium Chloride 3 ml 05/17/25 07:57 05/17/25 08:28 Sodium Chloride Rt [place] 0.9% 3 Ml Nebu INH 06/16/25 07:56 3 ml PRN PRN Administration SOLN Zinc Sulfate 220 mg 05/17/25 09:00 05/17/25 09:50 Zinc Sulfate 220 Mg Capsule PO 05/31/25 08:59 Not Given QDAY YURY Plan Patient is 80y/o F with PMH of HFpEF, A-fib on Eliquis, bradycardia s/p pacemaker placement in 2022, hypothyroidism,chronic back pain, IDDM II, and hypertension presented to the hospital due to worsening shortness of breathe. Per ICU note, no further history was obtained from the patient from EMS. Patient has been admitted to ICU for management of septic shock and acute hypoxic respiratory failure with community acquired pneumonia. Patient has been consulted to nephrology for management of KRYSTAL on CKD and possibility of hemodialysis. #KRYSTAL-most likely related to ATN- underlying shock #Anemia -Upon admission, BUN: 20, Cr:2.2 (Baseline 1.3), eGFR: 22 -Likely prerenal 2/2 sepsis, -Patient has minimal edema, lungs clear, mucus membranes moist. -CXR (05/10/2025): Severe pneumonia right lung pneumonia noted -Currently, Cr: 1.9, BUN:52, eGFR:26 VBG pH: 7.49 Plan: -Patient is continuing to good urine, Creatinine is stable. No need for hemodialysis today. -Will continue to monitor renal function. -Avoid nephrotoxins -Renally dose medication -Bumex as needed. #Acute encephalopathy #Septic shock 2/2 CAP #HFpEF #NSTEMI likely type II #Atrial fibrillation #IDDM II #Hx of Hypothyroidism #Subclinical hypothyroidisim #Elevated T. bili #Leukocytosis #Community-acquired pneumonia - Management per ICU team Thank you for allowing us to participate in the care of your patient. Assessment and plan discussed with my attending physician Dr. Wes Melton (PGY-1)- Internal medicine resident Attending Provider Attestation/Addendum Patient seen and examined with resident physician Dr. Melton. Note reviewed, agree with findings and recommendations. Patient currently on BiPAP. Given a dose of diuretic patient's urine output seems to be better. KRYSTAL from ATN. Unable to remove dialysis catheter due to poor venous access. WBC still elevated. Will monitor closely. Plan of care discussed with ICU team. Goals of care discussed with family-requesting all aggressive measures including dialysis. No need for dialysis.
[2025-05-18] MEDS: Magnesium Sulfate 2 GM Ivpb 2 GM/50 ML BAG IV (07:56)
[2025-05-18] MEDS: POTASSIUM CHL 20 mEq IVPB 20 MEQ/100 ML BAG 50 MEQ IV ×3 (07:57→11:50)
[2025-05-18] MEDS: INSULIN DEGLUDEC 5 UNIT/0.05 ML (PER 5 UNITS) 20 UNIT SC (08:35)
[2025-05-18 09:44] LABS: Base Excess, Venous 2 (-3-3); O2 Saturation, Venous 98 % (96-97); PCO2, Venous 32 mmHg (36-56); PO2, Venous 126 mmHg (15-58); pH, Venous 7.49 (7.33-7.66)
[2025-05-18] MEDS: VANCOMYCIN/NS 500 MG IVPB 100 ML 120 MG IV (09:47)
--- NOTE | 2025-05-18 09:54 | PC.SS ---
rounding note: Patient was extubated over weekend. WBC went up. Peripheral line to be placed.
--- NOTE | 2025-05-18 11:05 | XR_ITS ---
Examination: CTA abdominal aorta iliofemoral runoff. 2-D sagittal coronal reconstructions. 3-D reconstructions, vascular Date and time: May 18, 2025, 12 2 hours Indications: Cold right foot with fever today Technique: Multiple CTA images of the abdominal aorta iliofemoral runoff arterial vessels, 2.0 mm slice thickness, post intravenous administration 130 cc [id number] 2-D sagittal coronal reconstructions. 3-D reconstructions, vascular 3-D postprocessing, including vascular maximum intensity projection images, 3-D volume rendering Low dose protocols were performed. One or more of the following dose reduction techniques were used; automated exposure control, adjustment of the mA and/or KV according to patient size, use of iterative reconstruction technique. Findings: Pneumonia right base with small right pleural effusion Moderate enlargement cardiac contour. No visualized liver or splenic lesion Marked mucosal thickening involving the stomach. Bilateral benign renal cysts including a lower pole 8.5 cm right renal cyst No bowel obstruction Mild free fluid in the abdomen and pelvis Marked cystitis pattern Abdominal aortic calcification no aneurysmal dilatation. 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, axial image 196 There is opacification of the more distal right common iliac artery Both external iliac arteries fill with no critical stenoses Right superficial femoral artery is heavily calcified but is opacified with 80% distal stenosis axial image 495 Occlusion of the distal right superficial femoral artery with no filling of the popliteal artery and trace filling of anterior tibial and posterior tibial arteries, predominantly calcified Left superficial femoral artery is heavily calcified without critical stenoses Popliteal artery is heavily calcified There is occlusion of the left posterior tibial artery at its origin The main continuation trunk and left anterior tibial arteries are attenuated but do fill to the ankle Impression: 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 There is opacification of the more distal right common iliac artery. Occlusion of the distal right superficial femoral artery, occlusion of the right popliteal artery with only trace filling of anterior tibial and right posterior tibial arteries Occlusion of the left posterior tibial artery at its origin.
[2025-05-18] MEDS: AMIODARONE 360 MG IVPB 360 MG/200 ML BAG 16.667 MG IV (11:13)
--- NOTE | 2025-05-18 11:14 | ESPR_ITS ---
<Statement entered by Barry Cochran MD - 05/20/25 11:49> TOTAL TIME: 45MINUTES ON DIRECT MEDICAL CARE, MANAGEMENT - COORDINATION AND COUNSELING > 50% OF TOTAL TIME I saw and evaluated the patient. I reviewed the resident?s note and agree with findings and plan as documented in the resident?s note. Remains on and off noninvasive positive pressure ventilation Developing atelectasis probably No fevers Workup for escalating leukocytosis underway CT abdomen pelvis with runoff ordered Documentation for date of: 05/18/25 Subjective Subjective Interval history: 80 year-old female with PMHx noted for HFpEF, A-fib on Eliquis, bradycardia s/p pacemaker placement in 2022, hypothyroidism,chronic back pain, IDDM II, and hypertension was brought in from home by ambulance for complaints of worsening shortness of breath. No further history obtained from EMS, at the ED patient's BP 75/50 with heart rate of 102 and temp 105.1, labs were pH 7.29 WBC 24, creatinine 2.2, lactate 6, troponin 45, BNP 2800, Pro-Jamshid 23, and TSH of 6. ABG pH 7.29 and pCO2 of 41. CXR showed significant right lobar pneumonia with UA noted for high WBC/RBC/epithelial cells. Head CT was negative for acute findings, patient was intubated, femoral central line along with femoral arterial line were placed in ED. Patient received 3L of LR boluses, received 1 dose of ceftriaxone and azithromycin and was started on Levophed along with dobutamine. Patient will be admitted to ICU for further management and care of septic shock along with acute hypoxic respiratory failure in setting of community-acquired pneumonia. Interval History 05/10/25: Patient was examined at bedside; she is currently intubated and chemically induced on fentanyl drip to maintain RASS score -2 for mechanical ventilation. Current plan is to continue IV NS maintenance @ 100 mL/hr, IV cefepime 2 gm qD (started 05/10 @ 09:00) and IV Zithromax 250 mg qD (started 05/10 @ 09:00) for treatment of her community-acquired pneumonia, follow up on sputum culture to guide antibiotic de-escalation, and continue PO Cordarone 200 mg qD and PO Eliquis 2.5 mg BID (both started 05/10 @ 09:00) for treatment of her atrial fibrillation. Of note, patient's endotracheal tube was somehow dislodged today and required readjustment via bronchoscope to return the tube to its proper position. Will continue to monitor patient as her pneumonia is treated (including the performance of daily awakening trials) with the hope that resolution of the infection will remove her state of septic shock and ongoing acute hypoxic respiratory failure (disposition condition requires successful weaning off of ventilatory support and pressors). 05/11/2025: Overnight patient was given magnesium sulfate 4 g IV x 1. Ventilator on AC MV, VT 400, RR 20, PEEP 5, FiO2 40%. On fentanyl infusion, RASS -2. Input 2976, output 20 cc, balance +2956 cc. Patient responsive to noxious stimuli but RASS appears closer to -3, will wean sedation. Labs showed NA 138, K4.1, bicarb 19.4, BUN 36, CR 3.6, Phos 5.5. ABG pH 7.26, pCO2 41. Blood and sputum cultures pending, sputum Gram stain grew 4 plus GPC preliminary. Currently on Levophed infusion, titrating as necessary. Today will give 500 cc normal saline IVF bolus for fluid challenge. If urine output does not improve, will consult nephrology for possible urgent hemodialysis. 05/12/2025: Overnight sedation was weaned, no other events. Input 1165, output 0 cc. Patient remains intubated and mechanically ventilated, RASS -2 on fentanyl and Precedex infusion. Labs showed Hb 9.7, WBC 15.9, BUN 46, CR 4.5. Right lower extremity arterial duplex showed severe right leg obstructive PAD. Today we will place temporary dialysis catheter and plan for low rate dialysis as per nephrology recommendations. 05/13/2025: No events overnight. Input 1306, output 4 5, balance +901 cc. This morning patient remains on Precedex infusion with a RASS of -1. Norepinephrine infusion was turned off overnight as well as fentanyl infusion. ABG showed pH 7.32, pCO2 43. Hb 9.4, PLT 79, K3.7, Mg 1.8, BUN 43, CR 3.4. Will continue with daily SAT's and give patient a break on pressure support for 2 hours today. No plans for extubation as yet as patient's neurological status is still unable to be assessed due to residual sedation. Bumex 2 Mg IV x 1 as per nephrology recommendations. HD will also be held today as per nephrology. 05/14/2025: Overnight patient was switched between volume control and spontaneous ventilation. Input 3120, output 1419, balance 1630. Patient remains on low- dose Precedex and following commands labs showed WBC 3, Hb 8.7, PLT 65, K3.2, bicarb 19 point, BUN 48, CR 3.4. KCl 40 mEq IV x 1, Bicitra 30 mL GT twice daily and Bumex 2 Mg IV x 1 given as per nephrology recommendation. No hemodialysis today 05/15/2025: Overnight patient's alternated between volume control and pressure support ventilation due to vent dyssynchrony. 2258 cc, output 990 cc, balance +1268 cc. This morning patient was on low-dose Precedex but responds to noxious stimuli. Blood glucose between 200?3 100s in past 24 hours. Labs showed Hb 8, PLT 81, NA 137, K3.6, HCO3 22.6, BUN 44, CR 3.2, Mg 1.8. Sputum culture grew strep pneumonia pansensitive to all tested antibiotics. Will continue to hold on hemodialysis as per nephrology recommendations and Bicitra for 1 more day. Repleted with KCl 20 mEq IV x 1, magnesium sulfate 2 g IV x 1 and de-escalated antibiotics to ceftriaxone 1 g IV daily. Increased insulin degludec to 18 units daily and switch to insulin correction scale 3. Will attempt SBT today after SAT. Also will remove femoral central line. 05/16/2025: No overnight events. Today, patient was given SBT again while sedated on low-dose Precedex (due to her history of agitation and distress while on sedation vacation) to assess her likelihood of being extubated successfully purely from a physiological standpoint (tidal volume generation, maintenance of stable respiratory rate, achievement of adequate oxygenation, etc.) with anxiety/agitation removed from the equation; SBT was passed successfully. Patient's Rapid Shallow Breathing Index (Tidal Volume / RR) was calculated to be 450/23 = 51 breaths/min/L, suggesting likely successful extubation due to being a good amount below generally accepted threshold of 105 breaths/min/L. Patient's diaphragmatic and accessory muscle strength were also assessed via Negative Inspiratory Force testing and her NIF was found to be more negative than -70 cm H2O, further supporting the likelihood of successful extubation due to being more negative than generally accepted threshold -30 cm H2O. There was also airflow heard around the endotracheal tube during cuff leak test suggesting no upper airway obstruction or edema. Due to these auspicious findings, the decision was made to extubate the patient which she seems to have been tolerating well. However, since being extubated, patient has been having hypertension with SBP sometimes surpassing 200 (but usually being in the 180s-190s) which has been refractory to IV labetalol 10 mg x2, IV tylenol (pain relief). Patient will be given IV fentanyl 25 mcg (to treat possible opiate withdrawal) and have IV hydralazine 10 mg q4HR prn for SBP>180 to see if these measures will ameliorate her significant hypertension. Her home antihypertensives will be restarted once patient can tolerate PO medications or have oral route access instated. Of note, patient has new leukocytosis with WBC elevation to 20.4 from 7.7 yesterday; her dialysis line may be the nidus of infection but removal was ultimately decided against due to it being her only route of central access. Repeat CXR was clear, lowering clinical suspicion for new pneumonia. From nephrology's standpoint, patient was noted to have made 1000 mL of urine and HD can be held until Monday at which point her need for HD will be reevaluated. 05/17/2025: Overnight patient had no events. Input 316 cc, output 550 cc, balance -253 cc. Patient examined in ICU this morning, complains of mild SOB and is mouth breathing. She is oriented x 3. Denies any chest pain/pressure, palpitations, confusion or nausea. On exam patient had inspiratory stridor. Labs showed Hb 10.8, WBC up trended to 28.7 from 20.4, K3.5, NA 142, BUN 47, CR 2.3, Mg 1.7, glucose 203. Patient on last day of a 7-day course of cefepime IV for aspiration pneumonia. D5/0.45% NS at 60 cc/h was started to avoid hyponatremia as patient is currently n.p.o. as she failed swallow evaluation, will reattempt tomorrow. Insulin degludec was increased to 20 units daily. Right foot x-rays were performed which did not show any signs of osteomyelitis. For her uptrending white cell count, etiology suspected to be VAP and a one-time dose of vancomycin IV was given. Repeat blood cultures were also ordered. Bedside ultrasound of left IJ was also performed, vessel appeared to be stenosed with possible obstruction as well. This may be due to her implantable cardiac pacemaker and multiple procedures in the past. If her RIJ temporary dialysis catheter is removed, venous access on the left IJ would not be attempted/possible due to distorted anatomy. Will attempt today to achieve peripheral IV access. Also attempts were made to contact her NOK, Daja at [phone], but were unsuccessful. 05/18/2025: No overnight events. Patient examined at bedside; she is oriented x 3 and observed to be on Oxygen Mask with labored breathing noted. The inspiratory stridor patient had yesterday seems moderately improved. The cyanosis / discoloration of the phalanges on the right foot do not seem to have advanced or spread from yesterday but there was noted sloughing of skin with serous drainage from the hallux (with a curvilinear lesion atop the hallux creating a depressed contour) upon removal of the SCDs as well as some new dark patches along the calcaneus that extend across the medial-plantar surface of the right foot. Patient continues to fail swallow and speech evaluation making PO route access nonviable. After assessing the patient, dietitian recommended against PPN at this moment in time due to the poor ratio of nutrition to large volume of feeding in the setting of patient's HFpEF and her edematous state. He recommends that the patient be given another chance to pass the swallow and speech evaluation tomorrow before considering PPN or tube feeding. Concerningly, patient's WBC count has continued uptrending without a confirmed source of infection; today, it increased to 33.0 from 28.7. Goals of care were discussed with patient's partner Daja and granddaughter Idalia. The concern for possible infection due to her WBC elevation was brought up as well as the possibility that the infection could be at the right foot, infection of one of her lines, or possible ongoing pneumonia despite antibiotic treatment. It was explained, however, that patient may not be the best candidate for vascular surgical intervention due to the need for a lower extremity CTA with contrast which would risk damaging her slowly healing kidneys in the setting of recent KRYSTAL. Other topics discussed included the hesitancy to remove her HD catheter line (even if it is infected) due to it being our only central access point and patient's lack of other viable areas to establish central access as well as the idea of pursuing hospice care in an effort to minimize patient's suffering as the clinical utility of more aggressive measures may not be worth it in her weakened state. For now, the plan moving forward is to continue patient's IV vancomycin for suspected ongoing infection in hopes that this will address her current leukocytosis and improve her condition in her weakened state s/p prolonged intubation and sedation. Exam Vital Signs Temp Pulse Resp BP Pulse Ox O2 Del Method O2 Flow Rate 97.2 F 85 26 H 188/69 H 96 Oxy Mask 2 05/18/25 04:01 05/18/25 11:13 05/18/25 10:30 05/18/25 11:13 05/18/25 10:30 05/18/25 04:01 05/18/25 04:01 FiO2 30 05/17/25 12:01 Narrative Exam Constitutional Morbidly obese, elderly female. HEENT Normocephalic, atraumatic. PERRL. EOMI. Patent nares. Trachea midline Respiratory Chest normal on inspection and clear auscultation bilaterally, reduced air entry at bases. Inspiratory stridor, mouth breathing. Right IJ temp dialysis catheter noted. Exit site clean Cardiovascular S1 and S2 audible, RRR. No murmurs carotid bruit. No gross JVD. Abdominal Soft, obese and non tender to palpation in all quadrants. BS +. Genitourinary No bladder tenderness, no flank pain. Normal to palpation Musculoskeletal Extremities tone within normal limits. Neurological Alert and oriented x 3 [person and place]. Power 1/5 in upper EXTR and 0/5 in lower extremities Skin Bluish discoloration of great toe, 2nd, 3rd and 4th toes on right foot. Serous drainage from right toe with noted skin sloughing after removal of SCDs. New dark patches along the calcaneus that extend across the medial-plantar surface of the right foot. Absent dorsalis pedis and posterior tibial pulse on right leg. Cold extremities (right colder than left). Objective Labs 05/18/25 04:37 05/18/25 04:37 Labs: Laboratory Results - last 24 hr 05/18/25 05/18/25 04:37 09:32 WBC 33.0 H RBC 3.24 L Hgb 9.7 L Hct 29.7 L MCV 92 MCH 29.9 MCHC 32.7 RDW Std Deviation 48.1 H Plt Count 162 D Neut % (Auto) 86 H Lymph % (Auto) 4 L [place] % (Auto) 3 Eos % (Auto) 0 Baso % (Auto) 0 Neut # (Auto) 28.4 H Lymph # (Auto) 1.2 [place] # (Auto) 1.0 H Eos # (Auto) 0.0 Baso # (Auto) 0.1 Immature Gran # (Auto) 2.24 H Absolute Nucleated RBC 0.06 H Immature Gran % 7 H Nucleated RBC % 0 VBG pH 7.49 VBG pCO2 32 L VBG pO2 126 H VBG O2 Sat (Karoline) 98 H VBG Base Excess 2 Sodium 142 Potassium 3.3 L Chloride 108 H Carbon Dioxide 23.3 Anion Gap 11 BUN 52 H Creatinine 1.9 H Estim Creat Clear Calc 29.9 L eGFR 26 L BUN/Creatinine Ratio 27 H Glucose 271 H D Calculated Osmolality 307 H Calcium 8.0 L Corrected Calcium 8.9 Phosphorus 3.2 Magnesium 1.9 Total Bilirubin 0.2 L AST 24 ALT 42 Alkaline Phosphatase 57 Total Protein 5.4 L Albumin 2.9 L Globulin 2.5 Albumin/Globulin Ratio 1.2 Random Vancomycin 13.3 ABG Interpretation ABG results: 05/09/25 05/10/25 05/11/25 23:08 07:18 03:56 ABG pH 7.29 L 7.25 L 7.26 L ABG pCO2 41 49 H 41 ABG pO2 133 H 95 D 68 L D ABG HCO3 20 21 19 L ABG O2 Saturation 97 95 92 ABG Base Excess -7 L -6 L -8 L VBG pH VBG pCO2 VBG pO2 VBG Base Excess 05/12/25 05/13/25 05/14/25 04:09 04:02 04:18 ABG pH 7.23 L 7.32 L 7.38 ABG pCO2 44 43 34 ABG pO2 78 L 71 L 121 H D ABG HCO3 19 L 22 20 ABG O2 Saturation 94 92 97 ABG Base Excess -8 L -4 L -5 L VBG pH VBG pCO2 VBG pO2 VBG Base Excess 05/14/25 05/15/25 05/15/25 13:15 04:14 05:10 ABG pH 7.41 7.38 7.41 ABG pCO2 33 40 35 ABG pO2 113 H 48 L* D 89 D ABG HCO3 21 23 23 ABG O2 Saturation 98 82 L 98 ABG Base Excess -4 L -2 -2 VBG pH VBG pCO2 VBG pO2 VBG Base Excess 05/16/25 05/18/25 04:04 09:32 ABG pH 7.43 ABG pCO2 36 ABG pO2 84 ABG HCO3 24 ABG O2 Saturation 96 ABG Base Excess 0 VBG pH 7.49 VBG pCO2 32 L VBG pO2 126 H VBG Base Excess 2 Quality Measures Quality Measures VTE prophylaxis, sepsis Current suspected stage: ruled out Possible source: pulmonary Blood cultures ordered: yes Antibiotic ordered: Yes and none Advance care planning discussed with:: significant other and child Assessment & Plan Assessment Current Active Medications: Generic Name Dose Route Start Last Admin Trade Name Freq PRN Reason Stop Dose Admin Acetaminophen 650 mg 05/10/25 04:13 05/10/25 21:34 Acetaminophen 325 Mg Tablet PO 06/09/25 04:12 650 mg Q4HR PRN Administration PAIN SCALE 1-3 (mild Acetaminophen 650 mg 05/10/25 04:13 Acetaminophen Supp 650 Mg Supp NE 06/09/25 04:12 Q4HR PRN PAIN SCALE 1-3 (mild Al Hydrox/Mg Hydrox/Simethicone 30 ml 05/10/25 04:13 Mg Hyd/Al Hyd/Jackeline (Maalox Reg) Susp 30 Ml Udc PO 06/09/25 04:12 Q4HR PRN Heartburn or Upset Stomach Amiodarone HCl 200 mg 05/10/25 09:00 05/17/25 09:49 Amiodarone Hcl 200 Mg Tablet PO 06/09/25 08:59 Not Given On Hold: 05/17/25 09:49 QDAY YURY Artificial Tears 0 drop 05/13/25 14:52 05/16/25 23:58 Artificial Tears 225 Drop/15 Ml Btl BOTH EYES 06/12/25 14:51 2 drops PRN PRN Administration TO KEEP EYES MOIST Ascorbic Acid 500 mg 05/17/25 09:00 05/18/25 08:50 Ascorbic Acid 250 Mg Tablet PO 06/16/25 08:59 Not Given BID YURY Carvedilol 3.125 mg 05/15/25 21:00 05/17/25 09:49 Carvedilol 3.125 Mg Tablet PO 06/14/25 20:59 Not Given On Hold: 05/17/25 11:00 BID YURY Dextrose 25 ml 05/10/25 04:27 Dextrose 50%-Water Inj 50 Ml Syringe IV 06/09/25 04:26 Q15MIN PRN BG 50-70 responsive npo pt Dextrose 50 ml 05/10/25 04:27 Dextrose 50%-Water Inj 50 Ml Syringe IV 06/09/25 04:26 Q15MIN PRN BG <50 OR BG <70 & pt unresponsive Escitalopram Oxalate 20 mg 05/10/25 09:00 05/17/25 09:49 Escitalopram Oxalate 10 Mg Tablet PO 06/09/25 08:59 Not Given On Hold: 05/17/25 11:00 QDAY YURY Glucagon 1 mg 05/10/25 04:27 Glucagon Inj 1 Mg Vial IM Q15MIN PRN BG <70, and no IV access Heparin Sodium (Porcine) 2,600 unit 05/12/25 11:51 05/12/25 13:57 Heparin Sod Inj 1000 Unit/Ml Vial 10 Ml INDWELLCAT 05/26/25 11:50 2,600 unit X1 PRN Administration DIALYSIS Heparin Sodium (Porcine) 5,000 unit 05/16/25 14:00 05/18/25 05:38 Heparin Sod Inj 5000 Unit/Ml Vial SC 05/30/25 13:59 5,000 unit Q8HR YURY Administration Hydralazine HCl 10 mg 05/18/25 07:31 Hydralazine Inj 20 Mg/Ml Vial IVP 06/15/25 16:01 Q4H PRN SBP>180 Dexmedetomidine/Sodium Chloride 400 mcg in 100 mls @ 5.37 mls/hr 05/11/25 17:04 05/16/25 10:25 Precedex Ivpb IV 06/10/25 17:03 0 mcg/kg/hr .[id number] PRN 0 mls/hr Per PROTOCOL Titration Protocol 0.2 MCG/KG/HR Potassium Chloride 20 meq in 100 mls @ 50 mls/hr 05/18/25 07:30 05/18/25 09:46 Kcl Ivpb IV 05/18/25 13:29 50 mls/hr Q2H YURY Administration Amiodarone HCl/Dextrose 360 mg in 200 mls @ 16.667 mls/hr 05/18/25 11:06 05/18/25 11:13 Nexterone Ivpb IV 05/19/25 11:05 16.667 mls/hr .Q12H YURY Administration Insulin Degludec 20 unit 05/17/25 09:00 05/18/25 08:35 Insulin Degludec 5 Unit/0.05 Ml (Per 5 Units) SC 06/16/25 08:59 20 unit QDAY YURY Administration Insulin Human Lispro 0 unit 05/15/25 12:00 05/18/25 05:37 Insulin Lispro (Admelog) 1 Unit/0.01 Ml Unit SC 06/09/25 11:59 3 unit Q6HR YURY Administration Protocol Labetalol HCl 10 mg 05/18/25 07:31 Labetalol Inj 5 Mg/Ml Vial 20 Ml IVP Q10MIN PRN SBP > 180 Levothyroxine Sodium 75 mcg 05/10/25 09:00 05/17/25 05:23 Levothyroxine Sodium 25 Mcg Tablet PO 06/09/25 08:59 Not Given On Hold: 05/17/25 11:00 ACBR YURY Levothyroxine Sodium 35 mcg 05/17/25 11:15 05/18/25 08:37 Levothyroxine Inj 100 Mcg Vial IV 06/16/25 11:14 35 mcg QDAY YURY Administration Losartan Potassium 50 mg 05/16/25 13:30 05/16/25 15:14 Losartan Potassium 25 Mg Tablet PO 06/15/25 13:29 Not Given On Hold: 05/16/25 13:31 QDAY YURY Magnesium Hydroxide 30 ml 05/10/25 04:13 Milk Of Magnesia Susp 30 Ml Udc PO 06/09/25 04:12 QDAY PRN CONSTIPATION Metoprolol Tartrate 5 mg 05/15/25 14:16 05/15/25 17:17 Metoprolol Tartrate Inj 1 Mg/Ml Amp 5 Ml IVP 06/14/25 14:15 5 mg Q10MIN PRN Administration HR>130 Multivitamins 1 tab 05/17/25 09:00 05/18/25 08:37 Multivitamins Tablet PO 06/16/25 08:59 Not Given QDAY YURY Pantoprazole Sodium 40 mg 05/10/25 11:00 05/18/25 08:36 Pantoprazole Inj 40 Mg Vial IVP 06/09/25 10:59 40 mg QDAY YURY Administration Pharmacy Consult 1 each 05/17/25 09:00 Vancomycin Pharmacy To Dose 1 Each Each IV 06/16/25 08:59 QDAY PRN PROTOCOL Pharmacy Consult 1 each 05/17/25 08:40 Pharmacy Renal Dose Adjustment 1 Ea XX 06/16/25 08:39 PRN PRN CONSULT Sodium Chloride 1 spray 05/17/25 07:35 Saline Nasal 45 Ml Btl NASAL 06/16/25 07:34 PRN PRN CONGESTION Sodium Chloride 3 ml 05/17/25 07:57 05/17/25 08:28 Sodium Chloride Rt [place] 0.9% 3 Ml Nebu INH 06/16/25 07:56 3 ml PRN PRN Administration SOLN Zinc Sulfate 220 mg 05/17/25 09:00 05/18/25 08:37 Zinc Sulfate 220 Mg Capsule PO 05/31/25 08:59 Not Given QDAY YURY Plan 80 year-old female with PMHx noted for HFpEF, A-fib on Eliquis, bradycardia s/p pacemaker placement in 2022, hypothyroidism,chronic back pain, IDDM II, and hypertension admitted to ICU for further management and care of septic shock along with acute hypoxic respiratory failure in setting of community-acquired pneumonia. No overnight events. Patient examined at bedside; she is oriented x 3 and observed to be on Oxygen Mask with labored breathing noted. The inspiratory stridor patient had yesterday seems moderately improved. The cyanosis / discoloration of the phalanges on the right foot do not seem to have advanced or spread from yesterday but there was noted sloughing of skin with serous drainage from the hallux (with a curvilinear lesion atop the hallux creating a depressed contour) upon removal of the SCDs as well as some new dark patches along the calcaneus that extend across the medial-plantar surface of the right foot. Patient continues to fail swallow and speech evaluation making PO route access nonviable. After assessing the patient, dietitian recommended against PPN at this moment in time due to the poor ratio of nutrition to large volume of feeding in the setting of patient's HFpEF and her edematous state. He recommends that the patient be given another chance to pass the swallow and speech evaluation tomorrow before considering PPN or tube feeding. Concerningly, patient's WBC count has continued uptrending without a confirmed source of infection; today, it increased to 33.0 from 28.7. Goals of care were discussed with patient's partner Daja and granddaughter Idalia. The concern for possible infection due to her WBC elevation was brought up as well as the possibility that the infection could be at the right foot, infection of one of her lines, or possible ongoing pneumonia despite antibiotic treatment. It was explained, however, that patient may not be the best candidate for vascular surgical intervention due to the need for a lower extremity CTA with contrast which would risk damaging her slowly healing kidneys in the setting of recent KRYSTAL. Other topics discussed included the hesitancy to remove her HD catheter line (even if it is infected) due to it being our only central access point and patient's lack of other viable areas to establish central access as well as the idea of pursuing hospice care in an effort to minimize patient's suffering as the clinical utility of more aggressive measures may not be worth it in her weakened state. For now, the plan moving forward is to continue patient's IV vancomycin for suspected ongoing infection in hopes that this will address her current leukocytosis and improve her condition in her weakened state s/p prolonged intubation and sedation. HOSPITAL LIBRARIAN: #Encephalopathy s/p extubation and prolonged sedation (improving) Patient was successfully extubated in the late morning of 05/16 after being intubated and sedated for more than 6 days (with daily SATs and SBTs when appropriate) Upon assessing patient around 6-8 hours s/p extubation, patient was awake with eyes open but did not make eye contact with or verbally respond to this feature writer when her name was called and did not follow commands (but did move her head in response to noise stimuli) Later in the night (05/16, 18:50), patient began making eye contact and following commands According to patient's partner, patient does not have baseline dementia Today, patient continues to be drowsy but seems to understand and will respond to commands DDx: critical illness-associated cerebral dysfunction, prolonged sedation- related encephalopathy Dx: -Patient continues to remain lethargic and somnolent on the 3rd day s/p extubation and sedation discontinuation but is capable of making eye contact, understanding commands, and responding to or complying with demands Rx: -Continue to monitor as patient's mental status is expected to improve with time RRx: -Although patient's return to mental baseline seems to be progressing slowly, this outcome is somewhat expected due to her advanced age, multiple risk factors, ongoing leukocytosis, prolonged period of intubation and sedation, and lung disease. #Critical illness neuromyopathy (CINM) Due to patient's ICU status, difficulty weaning from the ventilator, presentation of diffuse, symmetrical limb weakness, and lack of other clear cause for neuromuscular dysfunction (e.g., stroke, spinal cord injury), there is a high index of suspicion for CINM Dx: -Patient remains very weak with 2/5 power in upper extremities and 0/5 power in lower extremities 2 days s/p intubation and extubation Rx: -Continue having patient work with PT in regaining mobility and function RRx: -It has been difficult for PT to work with patient due to her fragile and weakened state. Will continue to make efforts to get patient up and moving CVS: #HFpEF [EF 50-55%] Dx: -05/10 TTE: Mild LVH. Estimated EF at 50-55%. There is grade I diastolic dysfunction. The RV size is mildly increased with normal systolic function. Huertas sign present. Rx: -Due to continued failure of swallow and speech evaluation, patient's home medications for HFpEF will continue being held at this time ?Can consider resuming Guideline-Directed Medical Therapy once patient can tolerate PO medications (though most evidence for mortality benefit and QOL improvement of GDMT is for HFrEF w/ EF<40%): 1. RAAS inhibitor: restart patient's home PO losartan 50 mg qD 2. Beta-eligio: restart patient's home PO carvedilol 3.125 mg qD 3. Mineralocorticoid receptor antagonist: patient does not seem to have a home medication of this drug class 4. SGLT-2 inhibitor: patient does not seem to have a home medication of this drug class #Atrial fibrillation?paroxysmal Dx: -From telemetry review patient is in sinus rhythm with rates between 80s?100s overnight ? [id number]: 9 points [12.2% stroke risk per year] Has bled 4 points [high risk of major bleeding] -No recent Rx: ? Continue amiodarone IV at 0.5 mg/KG #Peripheral arterial disease Patient noted to have reduced pulses on right leg. Toes on right foot appear blue The cyanosis/discoloration of right foot seems to be slowly progressing during this hospital admission There is also concern that patient's ongoing leukocytosis may be related to a brewing infection in the right foot from hypoperfusion of the area but the clinical utility of pursuing foot CTA w/ contrast for guiding vascular intervention is questionable due to need for contrast (patient recently suffered an KRYSTAL) and uncertainty that patient's wound will heal properly s/p amputation (due to her diabetes, malnutrition, PAD, etc.) Dx: -Right lower extremity arterial duplex ultrasound showed severe obstructive PAD. No flow posterior tibial artery -05/17 foot XR showed no overt signs of osteomyelitis -Foot CTA w/ angiogram has been ordered w/ diligent fluid infusion before, during, and after the study in an effort to minimize contrast-induced renal damage, results pending Rx: -Follow up on results of foot CTA with possible consult to vascular surgery should vascular intervention be deemed appropriate -Continue wound care as per wound care nurse RRx: -The cyanosis / discoloration of the phalanges on the right foot do not seem to have advanced or spread from yesterday but there was noted sloughing of skin with serous drainage from the hallux (with a curvilinear lesion atop the hallux creating a depressed contour) upon removal of the SCDs as well as some new dark patches along the calcaneus that extend across the medial-plantar surface of the right foot PULM: #Stridor (resolved) DDx: Postextubation laryngeal edema, laryngotracheobronchitis Dx: -On exam yesterday, patient had inspiratory stridor and mouth breathing. However, the stridor seems improved today. Rx: - BiPAP to reduce patient's work of breathing by increasing airway diameter ? Racemic epinephrine nebulization as needed #Acute hypoxic respiratory failure secondary to community-acquired pneumonia, requiring intubation Patient has recently completed 7-day course of IV cefepime 2 gm qD and 5-day course IV Zithromax 250 mg qD Patient's current leukocytosis is thought to be unlikely to be attributed to ongoing pneumonia, which is currently thought to be resolved Dx: -Per Rads, 05/16 CXR shows significant right lung pneumonia, being notably extensive in the RUL -05/16 WBC elevation from 7.7 to 20.4 -05/10 MRSA Screen (+) -05/09 BCx both (-) -05/09 sputum culture grew pansensitive Streptococcus pneumoniae Rx: -Monitor for signs and symptoms of respiratory illness RRx: -Patient continues to have labored, mouth breathing but remains afebrile and without cough Renal: #KRYSTAL on CKD (resolving) Patient's urine output today was 300 mL (fluid balance: -110 mL) DDx: Prerenal KRYSTAL in setting of septic shock, ATN Dx: BUN 52 from 47 yesterday, CR 1.9 from 2.3 yesterday Rx: -Per nephrology recommendations, patient's need for HD will be re-evaluated on Monday and will not receive it today -Fluid infusion before, during, and after foot CTA with contrast to minimize renal damage RRx: -Follow-up on renal panel and monitor urine output. Endocrine #IDDM II Patient on 30 units of insulin glargine daily at home along with regular insulin Blood glucose today = 271 Rx: -Continue SC insulin degludec 20 units daily -Continue step 3 insulin correction scale RRx: -Monitor blood glucose and titrate insulin accordingly #Hx of Hypothyroidism Dx: TSH elevated at 6 with normal FT4 Rx: -Started on levothyroxine 35 micrograms IV daily -Consider switching to home PO levothyroxine 75 mcg ACBR when able to tolerate PO intake GI: #No active issues Heme: #Leukocytosis Beginning on 05/15 and now on 05/18, patient's WBC has been uptrending (7.7 -> 20.4 -> 28.7 -> 33.0) DDx: VAP, aspiration pneumonia, cellulitis or osteomyelitis of R foot Dx: -Lower extremity CTA has been ordered, results pending -05/17 foot XR was negative for signs of osteomyelitis -05/17 BCx's both show no growth after 24 hours -Per Rads, 05/16 CXR shows significant right lung pneumonia, being notably extensive in the RUL -05/15 UCx results pending -05/10 MRSA Screen (+) Rx: -Continue IV vancomycin RRx: -Monitor CBC and monitor for infectious signs or fever #Chronic normocytic anemia DDx: Anemia of chronic disease, CKD Dx: Hb 9.7 from 10.8 yesterday Rx: Continue to monitor CBC. #Thrombocytopenia DDx: sepsis, CKD Dx: Plt 162 from 123 yesterday Rx: Monitor for signs of bleeding and cbc ID: #Community-acquired pneumonia Dx: -See Respiratory section. Rx: -See Respiratory section. Skin: Right foot bullae DDx: Cellulitis, dependent edema, severe PAD, osteomyelitis Dx: -On exam right foot appears discolored with absent DP and PT pulses -05/17 foot x-ray did not show any overt signs of osteomyelitis -05/17 lower extremity CTA has been ordered, results pending Rx: -Continue wound care as per wound care nurse -Consider consult to vascular surgery should surgical intervention be deemed worthwhile ICU Health Maintenance: Dispo: BiPAP, IV antibiotics, pending foot CTA Diet: NPO DVT ppx: SCDs GI ppx: Protonix 40mg qD IV lines: 0 Central line: Yes RIJ on 05/12- Arterial line: No Mena: No [05/10 - 05/18] Code status: FULL CODE Plan of care discussed Dr. Sammie Butler, DO Internal Medicine, PGY-1 Attending Provider Attestation/Addendum I personally saw and examined the patient and supervised PGY 1 resident, Dr. Butler with formulating a management plan. I agree with his documentation with the exceptions as listed. Problem list: Critical illness myopathy HFpEF [EF 50-55%] Atrial fibrillation?paroxysmal Severe lower extremity PAD Right foot bullae Primary hypertension Acute respiratory failure with hypoxia secondary to CAP?resolving KRYSTAL, likely secondary to ATN?resolving IDDM type II Hypothyroidism Leukocytosis Post extubation patient had significant output trend of WBC from 7.5?>20?>20.8?>33. However she had no overt signs of fever, tachycardia, hypotension or other obvious source of infection. She had a CXR postextubation which did not show any new pulmonary infiltrates. There is a possibility of bacteremia with possible source being her right foot and blood cultures were redrawn on 05/17 which showed no bacterial growth x 1 day preliminary. CTA of lower extremities were done today and preparation for possible vascular surgery consult for her ischemic right foot. An extensive goals of care discussion was had today with patient's life partner, Daja and her granddaughter, Idalia at bedside. JOO Sarah was also present for the entirety of the discussion. Family members were informed of critical nature of patient's condition and high risk of deterioration and possible at any time. We explained that given patient's age, multiple comorbidities and the prolonged intubation. Prognosis is extremely poor. Currently she is day 2 postextubation and has between 0?1/5 power in all limbs and continues to fail swallow screen. Family was given the option of pursuing aggressive measures versus hospice/palliative care. Also brought up the patient's CODE STATUS and possibly changing to DNR/DNI. At this point in time after extensive counseling was given, the family wish to pursue aggressive measures and for the patient to remain full code. Dietitian was consulted for starting PPN versus TPN and the patient has she has not had any tube feeds in greater than 48 hours. The possibility of reinstating an NG tube was considered, however due to patient's history of postextubation stridor, critical illness myopathy and overall weakness this was not deemed to be the best course of action with her high possibility of again developing stridor and possible aspiration as well. Also discussed the possibility of TPN, however patient currently has a triple-lumen HD catheter with only 1 port available for medication use. This also was not a favorable option. While PPN may provide less calories than TPN, at this time it appears to be the least risky option. Plan of care discussed with Attending Dr. Sammie Eason MD PGY 2 Disclaimer: This note was dictated by speech recognition. Minor errors in patient services technician may be present due to voice recognition software.
[2025-05-18] MEDS: hydrALAZINE INJ 20 MG/ML VIAL 10 MG IVP ×2 (11:37→16:18)
[2025-05-18] MEDS: SODIUM CHLORIDE 0.45 % 1,000 ML 100 ML IV (12:00)
[2025-05-18] MEDS: THIAMINE INJ 100 MG/ML VIAL 2 ML IVP (16:13)
[2025-05-18] MEDS: ALBUTEROL/IPRATROPIUM (Duoneb) RT SOL 3 ML NEBU INH (16:26)
--- NOTE | 2025-05-18 17:23 | XR_ITS ---
Examination: AP chest single view Technique: Portable sitting AP chest single view Date and time: May 18, 2025, 1750 hrs., Comparison May 16, 2025 Findings: Diffuse right lung pneumonia Mild to moderate enlargement cardiac contour Internal jugular line and cardiac leads satisfactory position Prominent vascular congestion Impression: Diffuse significant right lung pneumonia Mild heart failure.
[2025-05-19] VITALS (60 sets, daily range): BP systolic 127–198; BP diastolic 55–99; PULSE 72–109; RESP 0–31; TEMP 35.2–36.6; O2SAT 94–100; BMI 42.7
[2025-05-19] MEDS: AMIODARONE 360 MG IVPB 360 MG/200 ML BAG 16.667 MG IV (00:53)
[2025-05-19] MEDS: ACETAMINOPHEN SUPP 650 MG SUPP PR (05:00)
[2025-05-19 05:53] LABS: Alanine Aminotransferase 48 U/L (10-49); Albumin, Serum 3.1 gm/dL (3.4-4.8); Albumin/Globulin Ratio 1.1 (1.2-2.2); Alkaline Phosphatase 67 U/L (46-116); Anion Gap 11 (7-16); Aspartate Amino Transferase 39 U/L (0-34); BUN/Creatinine Ratio 28 Ratio (12-20); Bilirubin,Total 0.2 mg/dL (0.3-1.2); Blood Urea Nitrogen 54 mg/dL (9-23); Calcium 8.1 mg/dL (8.3-10.6); Calcium (Corrected) 8.8 mg/dL (8.5-10.1); Carbon Dioxide 24.7 mMol/L (20.0-31.0); Chloride 108 mMol/L (98-107); Creatinine (Component) 1.9 mg/dL (0.6-1.3); Estimated Creatinine Clearance 30.2 mL/min (>60); Globulin 2.7 gm/dL (2.3-3.5); Glucose 153 mg/dL (74-106); Magnesium 2.4 mg/dL (1.6-2.6); Osmolality,Calculated 304 (275-295); Phosphorous 3.6 mg/dL (2.4-5.1); Potassium 4.3 mMol/L (3.4-5.1); Sodium 144 mMol/L (136-145); Total Protein 5.8 gm/dL (5.7-8.2); Vancomycin,Random 13.8 mcg/mL; eGFR 26 See Note
[2025-05-19] MEDS: INSULIN LISPRO (AdmeLOG) 1 UNIT/0.01 ML UNIT SC (06:41)
[2025-05-19] MEDS: HEPARIN SOD INJ 5000 UNIT/ML VIAL SC ×3 (06:42→21:51)
[2025-05-19 06:55] LABS: Base Excess 0 (-3-3); HCO3 25 mEq/L (20-26); Inspired Oxygen, FIO2 30 %; O2 Saturation 93 % (91-98); PCO2 38 mmHg (32.0-48.0); PO2 74 mmHg (83-108); pH, Arterial 7.42 (7.35-7.45)
[2025-05-19 07:01] LABS: Allen Test Performed/OK; Puncture Site Right Radial
[2025-05-19 08:01] LABS: Basophils # (Auto) 0.1 Thou/mm3 (0.0-0.2); Basophils % (Auto) 0 % (0-2.5); Eosinophils # (Auto) 0.0 Thou/mm3 (0.0-0.5); Eosinophils % (Auto) 0 % (0-10); Hematocrit 34.2 % (36.0-46.0); Hemoglobin 11.0 g/dL (12.0-16.0); Immature Granulocytes Auto 1.68 Thou/mm3 (0.00-0.00); Lymphocytes # (Auto) 1.7 Thou/mm3 (1.0-4.8); Lymphocytes % (Auto) 6 % (10-50); Mean Corpuscular HGB Conc 32.2 g/dl (31.0-37.0); Mean Corpuscular Hemoglobin 29.6 pg (25.0-35.0); Mean Corpuscular Volume 92 fL (80-100); Monocytes # (Auto) 1.7 Thou/mm3 (0.0-0.8); Monocytes % (Auto) 6 % (0-12); Neutrophils # (Auto) 22.5 Thou/mm3 (1.8-7.7); Neutrophils % (Auto) 81 % (37-80); Nucleated Red Blood Cell # 0.08 Thou/mm3 (0.00-0.00); Nucleated Red Blood Cell % 0 /100 WBC (0); Platelet Count 175 Thou/mm3 (140-440); RDW Standard Deviation 48.8 fL (36.4-46.3); Red Blood Count 3.72 Miln/mm3 (4.00-5.20); White Blood Count 27.8 Thou/mm3 (3.6-11.0)
--- NOTE | 2025-05-19 08:13 | PC.NURSE ---
pt can occasionally follow commands but cant answer the cam ICU questions at this moment
--- NOTE | 2025-05-19 08:59 | PD.RESPRO ---
Documentation for date of: 05/19/25 Subjective Subjective Interval history: Patient is 80y/o F with PMH of HFpEF, A-fib on Eliquis, bradycardia s/p pacemaker placement in 2022, hypothyroidism,chronic back pain, IDDM II, and hypertension presented to the hospital due to worsening shortness of breathe. Per ICU note, no further history was obtained from the patient from EMS. Patient has been admitted to ICU for management of septic shock and acute hypoxic respiratory failure with community acquired pneumonia. Patient has been consulted to nephrology for management of KRYSTAL on CKD and possibility of hemodialysis. ED course: No further history obtained from EMS, at the ED patient's BP 75/50 with heart rate of 102 and temp 105.1, labs were pH 7.29 WBC 24, creatinine 2.2, lactate 6, troponin 45, BNP 2800, Pro-Jamshid 23, and TSH of 6. ABG pH 7.29 and pCO2 of 41. CXR showed significant right lobar pneumonia with UA noted for high WBC/RBC/epithelial cells. Head CT was negative for acute findings, patient was intubated, femoral central line along with femoral arterial line were placed in ED. Patient received 3L of LR boluses, received 1 dose of ceftriaxone and azithromycin and was started on Levophed along with dobutamine. PMH: Diabetes, HFpEF, A-fib, hypothyroidism, HTN, chronic back pain PSH: Cholecystectomy, 3 back surgeries SH: Does not drink or use illicit drugs. Smoked 1 pack a day for many years , quit 3 months ago. Allergies:?sulfa Medications: amiodarone, amlodipine, eliquis, atorvastatin, bupropion, escitalopram, gabapentin, hydromorphone, Lantus, levothyroxine, Reglan, pioglitazone, trazodone, montelukast. 05/11/2025: Patient unarousable and minimally interactive. BP: 108/58 Cr: 3.6, eGFR: 12, BUN:36 pH: 7.26, Urine Output: 20ml. Continue to monitor Urine output. If no improvement, then likely hemodialysis tomorrow. 05/12/2025: Labs reviewed and patient examined at the ICU. Patient is unarousable and unable to be questioned or interact with medical providers. BP: 84/66 Cr: 4.5, BUN:46, eGFR:9, pH: 7.23. Urine Output: 30ml. Patient will receive conventional Hemodialysis today for 3 hours. CRRT is not indicated at this time. will continue to montior renal function. 05/13/2025: Labs reviewed and patient examined at the ICU. Patient is still unarousable and unable to be questioned or interact with medical providers. BP: 136/67 Cr: 3.4, BUN:43, eGFR:13, pH: 7.32. Urine Output: 295ml. Patient's Creatinine is getting better. Will hold hemodialysis for today . Given Bumex 2mg x1 because of bilateral lower extremity swelling. 05/14/2025: Labs reviewed and patient examined at the ICU. Patient continues to be in unconscious state: BP:121/55 Cr: 3.4, BUN: 48, eGFR: 13, pH:7.38, Urine Output: 1.49L.Bicarb: 19.9. Patient is continuing to good urine, Creatinine is stable. No need for hemodialysis today. Patient has low bicarb likely due to diarrhea. Given bicitrate 30ml bid PO. Given Bumex 2mg IV x1. 05/15/2025: Labs reviewed and patient examined at the ICU. Patient continues to be in unconscious state. BP: 125/46, Cr: 3.2, BUN: 44, eGFR: 14. ABG pH: 7.41, Urine output: 990ml. Patient is continuing to good urine, Creatinine is stable. No need for hemodialysis. Continue to monitor renal function. 05/17/2025: patient currently seen in ICU. Extubated although unable to raise her hands due to significant critical illness polyneuropathy. Patient currently on BiPAP. Creatinine improving. Decreased p.o. intake-ICU team give IV fluids. Clinically patient looks rather hypervolemic. If no improvement in urine output we will do Bumex. Hold off on dialysis today. Labs/medications reviewed. Right IJ dialysis catheter could not be removed due to lack of venous access. 05/18/2025: Labs reviewed and patient examined at the ICU. Patient is arousable. Able to follow basic commends. Creatinine stable. Urine output: 1.3 L. Continue to monitor renal function. Bumex if needed. Cr: 1.9, BUN:52, eGFR:26 VBG pH: 7.49 05/19/2025: Labs reviewed and patient examined at the ICU. Patient is arousable. Able to follow basic commends. Creatinine stable. Urine output: 1.5 L. Dialysis not needed at this moment. Suggests removing dialysis catheter. Cr: 1.9, BUN:54, eGFR:26 VBG pH: 7.42. Patient received CTA with contrast yesterday. Will continue to monitor her symptoms. Exam Vital Signs Temp Pulse Resp BP Pulse Ox O2 Del Method O2 Flow Rate 95.4 F L 76 25 H 169/73 H 98 Oxy Mask 5 05/19/25 08:00 05/19/25 08:00 05/19/25 08:00 05/19/25 08:00 05/19/25 08:00 05/19/25 04:01 05/19/25 06:24 FiO2 30 05/19/25 06:24 Narrative Exam General: Arousable. Eye: normal conjunctiva, no scleral icterus HENT: Normocephalic, atraumatic, moist oral mucosa Neck: Supple, non-tender, no JVD, no lymphadenopathy Lungs: Non-labored respirations, symmetric chest rise, Clear to auscultate bilaterally, No wheezing, rhonchi, crackles Heart: Peripheral pulses intact bilaterally, Regular Rate and Rhythm, No pitting edema of bilateral LEs. Abdomen: Soft, non-tender, non-distended, no palpable masses Musculoskeletal: No visible joint swelling, +1 bilateral lower extremity swelling. Skin: Skin is warm, dry, no rashes or lesions. Neuro:Cranial nerves II-XII grossly intact.Sensations intact to light touch. Objective Labs 05/19/25 06:12 05/19/25 19:16 Labs: Laboratory Results - last 24 hr 05/18/25 05/19/25 05/19/25 09:32 04:57 06:12 WBC 27.8 H D RBC 3.72 L Hgb 11.0 L Hct 34.2 L MCV 92 MCH 29.6 MCHC 32.2 RDW Std Deviation 48.8 H Plt Count 175 Neut % (Auto) 81 H Lymph % (Auto) 6 L [place] % (Auto) 6 Eos % (Auto) 0 Baso % (Auto) 0 Neut # (Auto) 22.5 H Lymph # (Auto) 1.7 [place] # (Auto) 1.7 H Eos # (Auto) 0.0 Baso # (Auto) 0.1 Immature Gran # (Auto) 1.68 H Absolute Nucleated RBC 0.08 H Immature Gran % 6 H Nucleated RBC % 0 Puncture Site ABG pH ABG pCO2 ABG pO2 ABG HCO3 ABG O2 Saturation ABG Base Excess VBG pH 7.49 VBG pCO2 32 L VBG pO2 126 H VBG O2 Sat (Karoline) 98 H VBG Base Excess 2 FiO2 Sodium 144 Potassium 4.3 D Chloride 108 H Carbon Dioxide 24.7 Anion Gap 11 BUN 54 H Creatinine 1.9 H Estim Creat Clear Calc 30.2 L eGFR 26 L BUN/Creatinine Ratio 28 H Glucose 153 H D Calculated Osmolality 304 H Calcium 8.1 L Corrected Calcium 8.8 Phosphorus 3.6 Magnesium 2.4 Total Bilirubin 0.2 L AST 39 H ALT 48 Alkaline Phosphatase 67 Total Protein 5.8 Albumin 3.1 L Globulin 2.7 Albumin/Globulin Ratio 1.1 L Random Vancomycin 13.8 05/19/25 06:48 WBC RBC Hgb Hct MCV MCH MCHC RDW Std Deviation Plt Count Neut % (Auto) Lymph % (Auto) [place] % (Auto) Eos % (Auto) Baso % (Auto) Neut # (Auto) Lymph # (Auto) [place] # (Auto) Eos # (Auto) Baso # (Auto) Immature Gran # (Auto) Absolute Nucleated RBC Immature Gran % Nucleated RBC % Puncture Site Right Radial ABG pH 7.42 ABG pCO2 38 ABG pO2 74 L ABG HCO3 25 ABG O2 Saturation 93 ABG Base Excess 0 VBG pH VBG pCO2 VBG pO2 VBG O2 Sat (Karoline) VBG Base Excess FiO2 30 Sodium Potassium Chloride Carbon Dioxide Anion Gap BUN Creatinine Estim Creat Clear Calc eGFR BUN/Creatinine Ratio Glucose Calculated Osmolality Calcium Corrected Calcium Phosphorus Magnesium Total Bilirubin AST ALT Alkaline Phosphatase Total Protein Albumin Globulin Albumin/Globulin Ratio Random Vancomycin ABG Interpretation ABG results: 05/09/25 05/10/25 05/11/25 23:08 07:18 03:56 ABG pH 7.29 L 7.25 L 7.26 L ABG pCO2 41 49 H 41 ABG pO2 133 H 95 D 68 L D ABG HCO3 20 21 19 L ABG O2 Saturation 97 95 92 ABG Base Excess -7 L -6 L -8 L VBG pH VBG pCO2 VBG pO2 VBG Base Excess 05/12/25 05/13/25 05/14/25 04:09 04:02 04:18 ABG pH 7.23 L 7.32 L 7.38 ABG pCO2 44 43 34 ABG pO2 78 L 71 L 121 H D ABG HCO3 19 L 22 20 ABG O2 Saturation 94 92 97 ABG Base Excess -8 L -4 L -5 L VBG pH VBG pCO2 VBG pO2 VBG Base Excess 05/14/25 05/15/25 05/15/25 13:15 04:14 05:10 ABG pH 7.41 7.38 7.41 ABG pCO2 33 40 35 ABG pO2 113 H 48 L* D 89 D ABG HCO3 21 23 23 ABG O2 Saturation 98 82 L 98 ABG Base Excess -4 L -2 -2 VBG pH VBG pCO2 VBG pO2 VBG Base Excess 05/16/25 05/18/25 05/19/25 04:04 09:32 06:48 ABG pH 7.43 7.42 ABG pCO2 36 38 ABG pO2 84 74 L ABG HCO3 24 25 ABG O2 Saturation 96 93 ABG Base Excess 0 0 VBG pH 7.49 VBG pCO2 32 L VBG pO2 126 H VBG Base Excess 2 Quality Measures Quality Measures VTE prophylaxis, sepsis Current suspected stage: sepsis Possible source: pulmonary Blood cultures ordered: yes Antibiotic ordered: Yes and none Advance care planning discussed with:: patient and other Assessment & Plan Assessment Current Active Medications: Generic Name Dose Route Start Last Admin Trade Name Freq PRN Reason Stop Dose Admin Acetaminophen 650 mg 05/10/25 04:13 05/10/25 21:34 Acetaminophen 325 Mg Tablet PO 06/09/25 04:12 650 mg Q4HR PRN Administration PAIN SCALE 1-3 (mild Acetaminophen 650 mg 05/10/25 04:13 05/19/25 05:00 Acetaminophen Supp 650 Mg Supp MS 06/09/25 04:12 650 mg Q4HR PRN Administration PAIN SCALE 1-3 (mild Al Hydrox/Mg Hydrox/Simethicone 30 ml 05/10/25 04:13 Mg Hyd/Al Hyd/Jackeline (Maalox Reg) Susp 30 Ml Udc PO 06/09/25 04:12 Q4HR PRN Heartburn or Upset Stomach Albuterol/Ipratropium 3 ml 05/19/25 01:00 Albuterol/Ipratropium (Duoneb) Rt [place] 3 Ml Nebu INH 06/18/25 00:59 Q6HRRT YURY Amiodarone HCl 200 mg 05/10/25 09:00 05/17/25 09:49 Amiodarone Hcl 200 Mg Tablet PO 06/09/25 08:59 Not Given On Hold: 05/17/25 09:49 QDAY YURY Artificial Tears 0 drop 05/13/25 14:52 05/16/25 23:58 Artificial Tears 225 Drop/15 Ml Btl BOTH EYES 06/12/25 14:51 2 drops PRN PRN Administration TO KEEP EYES MOIST Ascorbic Acid 500 mg 05/17/25 09:00 05/18/25 20:32 Ascorbic Acid 250 Mg Tablet PO 06/16/25 08:59 Not Given BID YURY Carvedilol 3.125 mg 05/15/25 21:00 05/17/25 09:49 Carvedilol 3.125 Mg Tablet PO 06/14/25 20:59 Not Given On Hold: 05/17/25 11:00 BID YURY Dextrose 25 ml 05/10/25 04:27 Dextrose 50%-Water Inj 50 Ml Syringe IV 06/09/25 04:26 Q15MIN PRN BG 50-70 responsive npo pt Dextrose 50 ml 05/10/25 04:27 Dextrose 50%-Water Inj 50 Ml Syringe IV 06/09/25 04:26 Q15MIN PRN BG <50 OR BG <70 & pt unresponsive Escitalopram Oxalate 20 mg 05/10/25 09:00 05/17/25 09:49 Escitalopram Oxalate 10 Mg Tablet PO 06/09/25 08:59 Not Given On Hold: 05/17/25 11:00 QDAY YURY Glucagon 1 mg 05/10/25 04:27 Glucagon Inj 1 Mg Vial IM Q15MIN PRN BG <70, and no IV access Heparin Sodium (Porcine) 2,600 unit 05/12/25 11:51 05/12/25 13:57 Heparin Sod Inj 1000 Unit/Ml Vial 10 Ml INDWELLCAT 05/26/25 11:50 2,600 unit X1 PRN Administration DIALYSIS Heparin Sodium (Porcine) 5,000 unit 05/16/25 14:00 05/19/25 06:42 Heparin Sod Inj 5000 Unit/Ml Vial SC 05/30/25 13:59 5,000 unit Q8HR YURY Administration Hydralazine HCl 10 mg 05/18/25 19:24 Hydralazine Inj 20 Mg/Ml Vial IVP 06/15/25 16:01 Q4H PRN SBP>180 and HR <70 Dexmedetomidine/Sodium Chloride 400 mcg in 100 mls @ 5.37 mls/hr 05/11/25 17:04 05/16/25 10:25 Precedex Ivpb IV 06/10/25 17:03 0 mcg/kg/hr .[id number] PRN 0 mls/hr Per PROTOCOL Titration Protocol 0.2 MCG/KG/HR Amiodarone HCl/Dextrose 360 mg in 200 mls @ 16.667 mls/hr 05/18/25 11:06 05/19/25 00:53 Nexterone Ivpb IV 05/19/25 11:05 16.667 mls/hr .Q12H YURY Administration Amiodarone HCl/Dextrose 360 mg in 200 mls @ 16.667 mls/hr 05/19/25 11:15 Nexterone Ivpb IV 05/20/25 11:14 .Q12H YURY Linezolid 600 mg in 300 mls @ 300 mls/hr 05/19/25 08:41 Zyvox Ivpb IV 05/26/25 08:40 Q12HR YURY Insulin Degludec 20 unit 05/17/25 09:00 05/18/25 08:35 Insulin Degludec 5 Unit/0.05 Ml (Per 5 Units) SC 06/16/25 08:59 20 unit QDAY YURY Administration Insulin Human Lispro 0 unit 05/15/25 12:00 05/19/25 06:41 Insulin Lispro (Admelog) 1 Unit/0.01 Ml Unit SC 06/09/25 11:59 3 unit Q6HR YURY Administration Protocol Labetalol HCl 10 mg 05/18/25 19:24 05/18/25 23:22 Labetalol Inj 5 Mg/Ml Vial 20 Ml IVP 10 mg Q10MIN PRN Administration Sbp > 180 and HR >70 Levothyroxine Sodium 35 mcg 05/17/25 11:15 05/18/25 08:37 Levothyroxine Inj 100 Mcg Vial IV 06/16/25 11:14 35 mcg QDAY YURY Administration Losartan Potassium 50 mg 05/16/25 13:30 05/16/25 15:14 Losartan Potassium 25 Mg Tablet PO 06/15/25 13:29 Not Given On Hold: 05/16/25 13:31 QDAY YURY Magnesium Hydroxide 30 ml 05/10/25 04:13 Milk Of Magnesia Susp 30 Ml Udc PO 06/09/25 04:12 QDAY PRN CONSTIPATION Metoprolol Tartrate 5 mg 05/15/25 14:16 05/15/25 17:17 Metoprolol Tartrate Inj 1 Mg/Ml Amp 5 Ml IVP 06/14/25 14:15 5 mg Q10MIN PRN Administration HR>130 Multivitamins 1 tab 05/17/25 09:00 05/18/25 08:37 Multivitamins Tablet PO 06/16/25 08:59 Not Given QDAY YURY Pantoprazole Sodium 40 mg 05/10/25 11:00 05/18/25 08:36 Pantoprazole Inj 40 Mg Vial IVP 06/09/25 10:59 40 mg QDAY YURY Administration Pharmacy Consult 1 each 05/17/25 08:40 Pharmacy Renal Dose Adjustment 1 Ea XX 06/16/25 08:39 PRN PRN CONSULT Sodium Chloride 1 spray 05/17/25 07:35 Saline Nasal 45 Ml Btl NASAL 06/16/25 07:34 PRN PRN CONGESTION Thiamine HCl 100 mg 05/18/25 15:15 05/18/25 16:13 Thiamine Inj 100 Mg/Ml Vial 2 Ml IVP 06/17/25 15:14 100 mg QDAY YURY Administration Zinc Sulfate 220 mg 05/17/25 09:00 05/18/25 08:37 Zinc Sulfate 220 Mg Capsule PO 05/31/25 08:59 Not Given QDAY YURY Plan Patient is 80y/o F with PMH of HFpEF, A-fib on Eliquis, bradycardia s/p pacemaker placement in 2022, hypothyroidism,chronic back pain, IDDM II, and hypertension presented to the hospital due to worsening shortness of breathe. Per ICU note, no further history was obtained from the patient from EMS. Patient has been admitted to ICU for management of septic shock and acute hypoxic respiratory failure with community acquired pneumonia. Patient has been consulted to nephrology for management of KRYSTAL on CKD and possibility of hemodialysis. #KRYSTAL-most likely related to ATN- underlying shock #Anemia -Upon admission, BUN: 20, Cr:2.2 (Baseline 1.3), eGFR: 22 -Likely prerenal 2/2 sepsis, -Patient has minimal edema, lungs clear, mucus membranes moist. -CXR (05/10/2025): Severe pneumonia right lung pneumonia noted -Currently, Cr: 1.9, BUN:54, eGFR:26 VBG pH: 7.42. Plan: -Patient is continuing to good urine, Creatinine is stable. No need for hemodialysis. Consider removing diaylsis catheter -Will continue to monitor renal function. -Avoid nephrotoxins -Renally dose medication -Bumex as needed. #Acute encephalopathy #Septic shock 2/2 CAP #HFpEF #NSTEMI likely type II #Atrial fibrillation #IDDM II #Hx of Hypothyroidism #Subclinical hypothyroidisim #Elevated T. bili #Leukocytosis #Community-acquired pneumonia - Management per ICU team Thank you for allowing us to participate in the care of your patient. Assessment and plan discussed with my attending physician Dr. Wes Melton (PGY-1)- Internal medicine resident Attending Provider Attestation/Addendum Patient seen and examined with resident physician Dr. Melton. Note reviewed, agree with findings and recommendations. Patient currently on BiPAP. Given a dose of diuretic patient's urine output seems to be better. KRYSTAL from ATN. Unable to remove dialysis catheter due to poor venous access. WBC still elevated. Will monitor closely. Plan of care discussed with ICU team. Goals of care discussed with family-requesting DNR. Overall long-term prognosis remains poor
[2025-05-19] MEDS: ALTEPLASE RECOMB INJ 2 MG VIAL INDWELLCAT (09:14)
[2025-05-19] MEDS: LINEZOLID 600 MG IVPB 600 MG/300 ML BAG 300 MG IV ×2 (09:30→21:51)
[2025-05-19] MEDS: THIAMINE INJ 100 MG/ML VIAL 2 ML IVP (09:30)
--- NOTE | 2025-05-19 09:37 | PC.SS ---
[employer] informed by ICU resident request to schedule goals of care meeting for today. [employer] left voicemail for patient's partner, Daja Virgen; awaiting response. Patient's granddaughter, Idalia Zeng; confirmed availability for 02:00 today. [employer] updated ICU residents.
[2025-05-19] MEDS: INSULIN DEGLUDEC 5 UNIT/0.05 ML (PER 5 UNITS) 20 UNIT SC (09:44)
--- NOTE | 2025-05-19 09:51 | ESPR_ITS ---
<Statement entered by Barry Cochran MD - 05/21/25 10:25> TOTAL TIME: 45MINUTES ON DIRECT MEDICAL CARE, MANAGEMENT - COORDINATION AND COUNSELING > 50% OF TOTAL TIME I saw and evaluated the patient. I reviewed the resident?s note and agree with findings and plan as documented in the resident?s note. White blood cell count trending down no fevers remains extubated on and off BiPAP. Overall improving slowly. Severe deconditioning. Unfortunately physical therapy will not see her to perform therapeutic interventions due to her degree of disability apparently. Range of motion exercises discussed with RN. Continue linezolid Documentation for date of: 05/19/25 Subjective Subjective Interval history: Interval history: 80 year-old female with PMHx noted for HFpEF, A-fib on Eliquis, bradycardia s/p pacemaker placement in 2022, hypothyroidism,chronic back pain, IDDM II, and hypertension was brought in from home by ambulance for complaints of worsening shortness of breath. No further history obtained from EMS, at the ED patient's BP 75/50 with heart rate of 102 and temp 105.1, labs were pH 7.29 WBC 24, creatinine 2.2, lactate 6, troponin 45, BNP 2800, Pro-Jamshid 23, and TSH of 6. ABG pH 7.29 and pCO2 of 41. CXR showed significant right lobar pneumonia with UA noted for high WBC/RBC/epithelial cells. Head CT was negative for acute findings, patient was intubated, femoral central line along with femoral arterial line were placed in ED. Patient received 3L of LR boluses, received 1 dose of ceftriaxone and azithromycin and was started on Levophed along with dobutamine. Patient will be admitted to ICU for further management and care of septic shock along with acute hypoxic respiratory failure in setting of community-acquired pneumonia. Interval History 05/10/25: Patient was examined at bedside; she is currently intubated and chemically induced on fentanyl drip to maintain RASS score -2 for mechanical ventilation. Current plan is to continue IV NS maintenance @ 100 mL/hr, IV cefepime 2 gm qD (started 05/10 @ 09:00) and IV Zithromax 250 mg qD (started 05/10 @ 09:00) for treatment of her community-acquired pneumonia, follow up on sputum culture to guide antibiotic de-escalation, and continue PO Cordarone 200 mg qD and PO Eliquis 2.5 mg BID (both started 05/10 @ 09:00) for treatment of her atrial fibrillation. Of note, patient's endotracheal tube was somehow dislodged today and required readjustment via bronchoscope to return the tube to its proper position. Will continue to monitor patient as her pneumonia is treated (including the performance of daily awakening trials) with the hope that resolution of the infection will remove her state of septic shock and ongoing acute hypoxic respiratory failure (disposition condition requires successful weaning off of ventilatory support and pressors). 05/11/2025: Overnight patient was given magnesium sulfate 4 g IV x 1. Ventilator on AC MV, VT 400, RR 20, PEEP 5, FiO2 40%. On fentanyl infusion, RASS -2. Input 2976, output 20 cc, balance +2956 cc. Patient responsive to noxious stimuli but RASS appears closer to -3, will wean sedation. Labs showed NA 138, K4.1, bicarb 19.4, BUN 36, CR 3.6, Phos 5.5. ABG pH 7.26, pCO2 41. Blood and sputum cultures pending, sputum Gram stain grew 4 plus GPC preliminary. Currently on Levophed infusion, titrating as necessary. Today will give 500 cc normal saline IVF bolus for fluid challenge. If urine output does not improve, will consult nephrology for possible urgent hemodialysis. 05/12/2025: Overnight sedation was weaned, no other events. Input 1165, output 0 cc. Patient remains intubated and mechanically ventilated, RASS -2 on fentanyl and Precedex infusion. Labs showed Hb 9.7, WBC 15.9, BUN 46, CR 4.5. Right lower extremity arterial duplex showed severe right leg obstructive PAD. Today we will place temporary dialysis catheter and plan for low rate dialysis as per nephrology recommendations. 05/13/2025: No events overnight. Input 1306, output 4 5, balance +901 cc. This morning patient remains on Precedex infusion with a RASS of -1. Norepinephrine infusion was turned off overnight as well as fentanyl infusion. ABG showed pH 7.32, pCO2 43. Hb 9.4, PLT 79, K3.7, Mg 1.8, BUN 43, CR 3.4. Will continue with daily SAT's and give patient a break on pressure support for 2 hours today. No plans for extubation as yet as patient's neurological status is still unable to be assessed due to residual sedation. Bumex 2 Mg IV x 1 as per nephrology recommendations. HD will also be held today as per nephrology. 05/14/2025: Overnight patient was switched between volume control and spontaneous ventilation. Input 3120, output 1419, balance 1630. Patient remains on low- dose Precedex and following commands labs showed WBC 3, Hb 8.7, PLT 65, K3.2, bicarb 19 point, BUN 48, CR 3.4. KCl 40 mEq IV x 1, Bicitra 30 mL GT twice daily and Bumex 2 Mg IV x 1 given as per nephrology recommendation. No hemodialysis today 05/15/2025: Overnight patient's alternated between volume control and pressure support ventilation due to vent dyssynchrony. 2258 cc, output 990 cc, balance +1268 cc. This morning patient was on low-dose Precedex but responds to noxious stimuli. Blood glucose between 200?3 100s in past 24 hours. Labs showed Hb 8, PLT 81, NA 137, K3.6, HCO3 22.6, BUN 44, CR 3.2, Mg 1.8. Sputum culture grew strep pneumonia pansensitive to all tested antibiotics. Will continue to hold on hemodialysis as per nephrology recommendations and Bicitra for 1 more day. Repleted with KCl 20 mEq IV x 1, magnesium sulfate 2 g IV x 1 and de-escalated antibiotics to ceftriaxone 1 g IV daily. Increased insulin degludec to 18 units daily and switch to insulin correction scale 3. Will attempt SBT today after SAT. Also will remove femoral central line. 05/16/2025: No overnight events. Today, patient was given SBT again while sedated on low-dose Precedex (due to her history of agitation and distress while on sedation vacation) to assess her likelihood of being extubated successfully purely from a physiological standpoint (tidal volume generation, maintenance of stable respiratory rate, achievement of adequate oxygenation, etc.) with anxiety/agitation removed from the equation; SBT was passed successfully. Patient's Rapid Shallow Breathing Index (Tidal Volume / RR) was calculated to be 450/23 = 51 breaths/min/L, suggesting likely successful extubation due to being a good amount below generally accepted threshold of 105 breaths/min/L. Patient's diaphragmatic and accessory muscle strength were also assessed via Negative Inspiratory Force testing and her NIF was found to be more negative than -70 cm H2O, further supporting the likelihood of successful extubation due to being more negative than generally accepted threshold -30 cm H2O. There was also airflow heard around the endotracheal tube during cuff leak test suggesting no upper airway obstruction or edema. Due to these auspicious findings, the decision was made to extubate the patient which she seems to have been tolerating well. However, since being extubated, patient has been having hypertension with SBP sometimes surpassing 200 (but usually being in the 180s-190s) which has been refractory to IV labetalol 10 mg x2, IV tylenol (pain relief). Patient will be given IV fentanyl 25 mcg (to treat possible opiate withdrawal) and have IV hydralazine 10 mg q4HR prn for SBP>180 to see if these measures will ameliorate her significant hypertension. Her home antihypertensives will be restarted once patient can tolerate PO medications or have oral route access instated. Of note, patient has new leukocytosis with WBC elevation to 20.4 from 7.7 yesterday; her dialysis line may be the nidus of infection but removal was ultimately decided against due to it being her only route of central access. Repeat CXR was clear, lowering clinical suspicion for new pneumonia. From nephrology's standpoint, patient was noted to have made 1000 mL of urine and HD can be held until Monday at which point her need for HD will be reevaluated. 05/17/2025: Overnight patient had no events. Input 316 cc, output 550 cc, balance -253 cc. Patient examined in ICU this morning, complains of mild SOB and is mouth breathing. She is oriented x 3. Denies any chest pain/pressure, palpitations, confusion or nausea. On exam patient had inspiratory stridor. Labs showed Hb 10.8, WBC up trended to 28.7 from 20.4, K3.5, NA 142, BUN 47, CR 2.3, Mg 1.7, glucose 203. Patient on last day of a 7-day course of cefepime IV for aspiration pneumonia. D5/0.45% NS at 60 cc/h was started to avoid hyponatremia as patient is currently n.p.o. as she failed swallow evaluation, will reattempt tomorrow. Insulin degludec was increased to 20 units daily. Right foot x-rays were performed which did not show any signs of osteomyelitis. For her uptrending white cell count, etiology suspected to be VAP and a one-time dose of vancomycin IV was given. Repeat blood cultures were also ordered. Bedside ultrasound of left IJ was also performed, vessel appeared to be stenosed with possible obstruction as well. This may be due to her implantable cardiac pacemaker and multiple procedures in the past. If her RIJ temporary dialysis catheter is removed, venous access on the left IJ would not be attempted/possible due to distorted anatomy. Will attempt today to achieve peripheral IV access. Also attempts were made to contact her NOKDaja at [phone], but were unsuccessful. 05/18/2025: No overnight events. Patient examined at bedside; she is oriented x 3 and observed to be on Oxygen Mask with labored breathing noted. The inspiratory stridor patient had yesterday seems moderately improved. The cyanosis / discoloration of the phalanges on the right foot do not seem to have advanced or spread from yesterday but there was noted sloughing of skin with serous drainage from the hallux (with a curvilinear lesion atop the hallux creating a depressed contour) upon removal of the SCDs as well as some new dark patches along the calcaneus that extend across the medial-plantar surface of the right foot. Patient continues to fail swallow and speech evaluation making PO route access nonviable. After assessing the patient, dietitian recommended against PPN at this moment in time due to the poor ratio of nutrition to large volume of feeding in the setting of patient's HFpEF and her edematous state. He recommends that the patient be given another chance to pass the swallow and speech evaluation tomorrow before considering PPN or tube feeding. Concerningly, patient's WBC count has continued uptrending without a confirmed source of infection; today, it increased to 33.0 from 28.7. Goals of care were discussed with patient's partner Daja and granddaughter Idalia. The concern for possible infection due to her WBC elevation was brought up as well as the possibility that the infection could be at the right foot, infection of one of her lines, or possible ongoing pneumonia despite antibiotic treatment. It was explained, however, that patient may not be the best candidate for vascular surgical intervention due to the need for a lower extremity CTA with contrast which would risk damaging her slowly healing kidneys in the setting of recent KRYSTAL. Other topics discussed included the hesitancy to remove her HD catheter line (even if it is infected) due to it being our only central access point and patient's lack of other viable areas to establish central access as well as the idea of pursuing hospice care in an effort to minimize patient's suffering as the clinical utility of more aggressive measures may not be worth it in her weakened state. For now, the plan moving forward is to continue patient's IV vancomycin for suspected ongoing infection in hopes that this will address her current leukocytosis and improve her condition in her weakened state s/p prolonged intubation and sedation. 05/19/2025: Overnight, patient had to be put back on BiPAP due to continuing tachypnea and respiratory distress. Patient was examined at bedside; she remains somnolent, lethargic, and generally weak. Of note, patient's WBC downtrended to 27.8 from 33.0 and her VBG results were relatively benign. The decision was made today to switch vancomycin to linezolid due to both 05/17 blood cultures being negative and evidence on abdominal CTA of either atelectasis or new pneumonia at the RLL in the setting of chronic interstitial lung disease w/ fibrosis that, based on prior imaging, seems to have developed while she had been in the ICU. The same CTA also showed occlusions in many different areas of the lower extremity vasculature that will be discussed in the A&P. Today, patient had an NG tube placed so that she could be started on tube trickle feeding @ 10 mL/hr as well as have her home medications restarted including: PO amiodarone 200 mg qD (previously on IV amiodarone), PO amlodipine 10 mg qD, PO atorvastatin 10 mg qD, PO bupropion HCl 200 mg BID, PO carvedilol 3.125 mg qD, PO escitalopram oxalate 20 mg qD, PO levothyroxine 75 mcg qD (will be started tomorrow since patient already received an IV dose today), and PO losartan 50 mg qD. Another goals of care discussion was held today at patient's bedside around 3:15 PM with patient's partner Daja (decision-maker) and granddaughter Idalia. During this discussion, it was emphasized to the patient's loved ones that the care team's goal was aligned with theirs in doing what was ultimately best for the patient but that there remained a very real possibility of the patient rapidly deteriorating at any moment due to her currently fragile state of health. The topic of Code Status was brought up to Titi and it was explained to them that, should the patient's current condition acutely decline, that aggressive interventions including intubation, chest compressions, and defibrillation would most likely be ineffective in saving the patient given her age and infirmity and would, in all probability, only cause the patient to needlessly suffer. It was also mentioned that, in the unlikely event in which patient did manage to pull through after such interventions, that she would almost certainly end up permanently intubated or live in a state with drastically decreased quality of life. After patients' loved one verbalized their understanding of the ramifications of what their Code Status choice would be, they were provided a form to sign by Biology Manager indicating what decision they chose. 05/20/25: No overnight events. Patient continues to require BiPAP but seems to be improving both in mental status and neuromusculoskeletal function. The wounds on her right foot also seem to be improving. Today, patient's linezolid was switched from IV to GT, her p.o. carvedilol dosing was increased from 3.125 mg twice daily to 6.25 mg twice daily, and she was given a one-time dose of IV Bumex 1 mg. Auspiciously, patient's leukocytosis has downtrended again (from 33.0 two days ago to 27.8 yesterday to 21.5 today) and her creatinine improved to 1.7 from 1.9 yesterday. Current plan remains unchanged and patient will continue on her antibiotic regimen for suspected right lower lobe pneumonia seen on CT imaging. Exam Vital Signs Temp Pulse Resp BP Pulse Ox O2 Del Method O2 Flow Rate 95.4 F L 76 25 H 169/73 H 98 Oxy Mask 5 05/19/25 08:00 05/19/25 08:00 05/19/25 08:00 05/19/25 08:00 05/19/25 08:00 05/19/25 04:01 05/19/25 06:24 FiO2 30 05/19/25 06:24 Narrative Exam Constitutional Morbidly obese, elderly female. HEENT Normocephalic, atraumatic. PERRL. EOMI. Patent nares. Trachea midline Respiratory On BiPAP. Reduced air entry at bases. Mouth breathing observed. Right IJ temp dialysis catheter noted. Exit site clean. Cardiovascular S1 and S2 audible, RRR. No murmurs carotid bruit. No gross JVD. Abdominal Soft, obese and non tender to palpation in all quadrants. BS +. Genitourinary No bladder tenderness, no flank pain. Normal to palpation Musculoskeletal Extremities tone within normal limits. Neurological Alert and oriented x 3 [person and place]. Power 1/5 in upper EXTR and 0/5 in lower extremities Skin Bluish discoloration of great toe, 2nd, 3rd and 4th toes on right foot. Ulcerated lesion on hallux. Dark patches along the calcaneus that extend across the medial-plantar surface of the right foot. Absent dorsalis pedis and posterior tibial pulse on right leg. Cold extremities (right colder than left). Objective Labs 05/20/25 05:34 05/20/25 05:34 Labs: Laboratory Results - last 24 hr 05/19/25 05/19/25 05/19/25 04:57 06:12 06:48 WBC 27.8 H D RBC 3.72 L Hgb 11.0 L Hct 34.2 L MCV 92 MCH 29.6 MCHC 32.2 RDW Std Deviation 48.8 H Plt Count 175 Neut % (Auto) 81 H Lymph % (Auto) 6 L Larue % (Auto) 6 Eos % (Auto) 0 Baso % (Auto) 0 Neut # (Auto) 22.5 H Lymph # (Auto) 1.7 Larue # (Auto) 1.7 H Eos # (Auto) 0.0 Baso # (Auto) 0.1 Immature Gran # (Auto) 1.68 H Absolute Nucleated RBC 0.08 H Immature Gran % 6 H Nucleated RBC % 0 Puncture Site Right Radial ABG pH 7.42 ABG pCO2 38 ABG pO2 74 L ABG HCO3 25 ABG O2 Saturation 93 ABG Base Excess 0 FiO2 30 Sodium 144 Potassium 4.3 D Chloride 108 H Carbon Dioxide 24.7 Anion Gap 11 BUN 54 H Creatinine 1.9 H Estim Creat Clear Calc 30.2 L eGFR 26 L BUN/Creatinine Ratio 28 H Glucose 153 H D Calculated Osmolality 304 H Calcium 8.1 L Corrected Calcium 8.8 Phosphorus 3.6 Magnesium 2.4 Total Bilirubin 0.2 L AST 39 H ALT 48 Alkaline Phosphatase 67 Total Protein 5.8 Albumin 3.1 L Globulin 2.7 Albumin/Globulin Ratio 1.1 L Random Vancomycin 13.8 ABG Interpretation ABG results: 05/09/25 05/10/25 05/11/25 23:08 07:18 03:56 ABG pH 7.29 L 7.25 L 7.26 L ABG pCO2 41 49 H 41 ABG pO2 133 H 95 D 68 L D ABG HCO3 20 21 19 L ABG O2 Saturation 97 95 92 ABG Base Excess -7 L -6 L -8 L VBG pH VBG pCO2 VBG pO2 VBG Base Excess 05/12/25 05/13/25 05/14/25 04:09 04:02 04:18 ABG pH 7.23 L 7.32 L 7.38 ABG pCO2 44 43 34 ABG pO2 78 L 71 L 121 H D ABG HCO3 19 L 22 20 ABG O2 Saturation 94 92 97 ABG Base Excess -8 L -4 L -5 L VBG pH VBG pCO2 VBG pO2 VBG Base Excess 05/14/25 05/15/25 05/15/25 13:15 04:14 05:10 ABG pH 7.41 7.38 7.41 ABG pCO2 33 40 35 ABG pO2 113 H 48 L* D 89 D ABG HCO3 21 23 23 ABG O2 Saturation 98 82 L 98 ABG Base Excess -4 L -2 -2 VBG pH VBG pCO2 VBG pO2 VBG Base Excess 05/16/25 05/18/25 05/19/25 04:04 09:32 06:48 ABG pH 7.43 7.42 ABG pCO2 36 38 ABG pO2 84 74 L ABG HCO3 24 25 ABG O2 Saturation 96 93 ABG Base Excess 0 0 VBG pH 7.49 VBG pCO2 32 L VBG pO2 126 H VBG Base Excess 2 Quality Measures Quality Measures VTE prophylaxis, sepsis Current suspected stage: ruled out Possible source: pulmonary Blood cultures ordered: yes Antibiotic ordered: Yes and none Advance care planning discussed with:: significant other (Daja), child and other (Grandchild Idalia) Assessment & Plan Assessment Current Active Medications: Generic Name Dose Route Start Last Admin Trade Name Freq PRN Reason Stop Dose Admin Acetaminophen 650 mg 05/10/25 04:13 05/10/25 21:34 Acetaminophen 325 Mg Tablet PO 06/09/25 04:12 650 mg Q4HR PRN Administration PAIN SCALE 1-3 (mild Acetaminophen 650 mg 05/10/25 04:13 05/19/25 05:00 Acetaminophen Supp 650 Mg Supp NM 06/09/25 04:12 650 mg Q4HR PRN Administration PAIN SCALE 1-3 (mild Al Hydrox/Mg Hydrox/Simethicone 30 ml 05/10/25 04:13 Mg Hyd/Al Hyd/Jackeline (Maalox Reg) Susp 30 Ml Udc PO 06/09/25 04:12 Q4HR PRN Heartburn or Upset Stomach Albuterol/Ipratropium 3 ml 05/19/25 01:00 Albuterol/Ipratropium (Duoneb) Rt Suma 3 Ml Nebu INH 06/18/25 00:59 Q6HRRT YURY Amiodarone HCl 200 mg 05/10/25 09:00 05/17/25 09:49 Amiodarone Hcl 200 Mg Tablet PO 06/09/25 08:59 Not Given On Hold: 05/17/25 09:49 QDAY YURY Artificial Tears 0 drop 05/13/25 14:52 05/16/25 23:58 Artificial Tears 225 Drop/15 Ml Btl BOTH EYES 06/12/25 14:51 2 drops PRN PRN Administration TO KEEP EYES MOIST Ascorbic Acid 500 mg 05/17/25 09:00 05/19/25 09:12 Ascorbic Acid 250 Mg Tablet PO 06/16/25 08:59 Not Given BID YURY Carvedilol 3.125 mg 05/15/25 21:00 05/17/25 09:49 Carvedilol 3.125 Mg Tablet PO 06/14/25 20:59 Not Given On Hold: 05/17/25 11:00 BID YURY Dextrose 25 ml 05/10/25 04:27 Dextrose 50%-Water Inj 50 Ml Syringe IV 06/09/25 04:26 Q15MIN PRN BG 50-70 responsive npo pt Dextrose 50 ml 05/10/25 04:27 Dextrose 50%-Water Inj 50 Ml Syringe IV 06/09/25 04:26 Q15MIN PRN BG <50 OR BG <70 & pt unresponsive Escitalopram Oxalate 20 mg 05/10/25 09:00 05/17/25 09:49 Escitalopram Oxalate 10 Mg Tablet PO 06/09/25 08:59 Not Given On Hold: 05/17/25 11:00 QDAY YURY Glucagon 1 mg 05/10/25 04:27 Glucagon Inj 1 Mg Vial IM Q15MIN PRN BG <70, and no IV access Heparin Sodium (Porcine) 2,600 unit 05/12/25 11:51 05/12/25 13:57 Heparin Sod Inj 1000 Unit/Ml Vial 10 Ml INDWELLCAT 05/26/25 11:50 2,600 unit X1 PRN Administration DIALYSIS Heparin Sodium (Porcine) 5,000 unit 05/16/25 14:00 05/19/25 06:42 Heparin Sod Inj 5000 Unit/Ml Vial SC 05/30/25 13:59 5,000 unit Q8HR YURY Administration Hydralazine HCl 10 mg 05/18/25 19:24 Hydralazine Inj 20 Mg/Ml Vial IVP 06/15/25 16:01 Q4H PRN SBP>180 and HR <70 Dexmedetomidine/Sodium Chloride 400 mcg in 100 mls @ 5.37 mls/hr 05/11/25 17:04 05/16/25 10:25 Precedex Ivpb IV 06/10/25 17:03 0 mcg/kg/hr .[id number] PRN 0 mls/hr Per PROTOCOL Titration Protocol 0.2 MCG/KG/HR Amiodarone HCl/Dextrose 360 mg in 200 mls @ 16.667 mls/hr 05/18/25 11:06 05/19/25 00:53 Nexterone Ivpb IV 05/19/25 11:05 16.667 mls/hr .Q12H YURY Administration Amiodarone HCl/Dextrose 360 mg in 200 mls @ 16.667 mls/hr 05/19/25 11:15 Nexterone Ivpb IV 05/20/25 11:14 .Q12H YURY Linezolid 600 mg in 300 mls @ 300 mls/hr 05/19/25 08:41 05/19/25 09:30 Zyvox Ivpb IV 05/26/25 08:40 300 mls/hr Q12HR YURY Administration Insulin Degludec 20 unit 05/17/25 09:00 05/19/25 09:44 Insulin Degludec 5 Unit/0.05 Ml (Per 5 Units) SC 06/16/25 08:59 20 unit QDAY YURY Administration Insulin Human Lispro 0 unit 05/15/25 12:00 05/19/25 06:41 Insulin Lispro (Admelog) 1 Unit/0.01 Ml Unit SC 06/09/25 11:59 3 unit Q6HR YURY Administration Protocol Labetalol HCl 10 mg 05/18/25 19:24 05/18/25 23:22 Labetalol Inj 5 Mg/Ml Vial 20 Ml IVP 10 mg Q10MIN PRN Administration Sbp > 180 and HR >70 Levothyroxine Sodium 35 mcg 05/17/25 11:15 05/19/25 09:34 Levothyroxine Inj 100 Mcg Vial IV 06/16/25 11:14 35 mcg QDAY YURY Administration Losartan Potassium 50 mg 05/16/25 13:30 05/16/25 15:14 Losartan Potassium 25 Mg Tablet PO 06/15/25 13:29 Not Given On Hold: 05/16/25 13:31 QDAY YURY Magnesium Hydroxide 30 ml 05/10/25 04:13 Milk Of Magnesia Susp 30 Ml Udc PO 06/09/25 04:12 QDAY PRN CONSTIPATION Metoprolol Tartrate 5 mg 05/15/25 14:16 05/15/25 17:17 Metoprolol Tartrate Inj 1 Mg/Ml Amp 5 Ml IVP 06/14/25 14:15 5 mg Q10MIN PRN Administration HR>130 Multivitamins 1 tab 05/17/25 09:00 05/19/25 09:12 Multivitamins Tablet PO 06/16/25 08:59 Not Given QDAY YURY Pantoprazole Sodium 40 mg 05/10/25 11:00 05/19/25 09:31 Pantoprazole Inj 40 Mg Vial IVP 06/09/25 10:59 40 mg QDAY YURY Administration Pharmacy Consult 1 each 05/17/25 08:40 Pharmacy Renal Dose Adjustment 1 Ea XX 06/16/25 08:39 PRN PRN CONSULT Sodium Chloride 1 spray 05/17/25 07:35 Saline Nasal 45 Ml Btl NASAL 06/16/25 07:34 PRN PRN CONGESTION Thiamine HCl 100 mg 05/18/25 15:15 05/19/25 09:30 Thiamine Inj 100 Mg/Ml Vial 2 Ml IVP 06/17/25 15:14 100 mg QDAY YURY Administration Zinc Sulfate 220 mg 05/17/25 09:00 05/19/25 09:12 Zinc Sulfate 220 Mg Capsule PO 05/31/25 08:59 Not Given QDAY YURY Plan 80 year-old female with PMHx noted for HFpEF, A-fib on Eliquis, bradycardia s/p pacemaker placement in 2022, hypothyroidism,chronic back pain, IDDM II, and hypertension admitted to ICU for further management and care of septic shock along with acute hypoxic respiratory failure in setting of community-acquired pneumonia. No overnight events. Patient continues to require BiPAP but seems to be improving both in mental status and neuromusculoskeletal function. The wounds on her right foot also seem to be improving. Today, patient's linezolid was switched from IV to GT, her p.o. carvedilol dosing was increased from 3.125 mg twice daily to 6.25 mg twice daily, and she was given a one-time dose of IV Bumex 1 mg. Auspiciously, patient's leukocytosis has downtrended again (from 33.0 two days ago to 27.8 yesterday to 21.5 today) and her creatinine improved to 1.7 from 1.9 yesterday. Current plan remains unchanged and patient will continue on her antibiotic regimen for suspected right lower lobe pneumonia seen on CT imaging. Neuro: #Encephalopathy s/p extubation and prolonged sedation (improving) Patient was successfully extubated in the late morning of 05/16 after being intubated and sedated for more than 6 days (with daily SATs and SBTs when appropriate) Upon assessing patient around 6-8 hours s/p extubation, patient was awake with eyes open but did not make eye contact with or verbally respond to this press writer when her name was called and did not follow commands (but did move her head in response to noise stimuli) Later in the night (05/16, 18:50), patient began making eye contact and following commands According to patient's partner, patient does not have baseline dementia Today, patient continues to be drowsy but seems to understand and will respond to commands DDx: critical illness-associated cerebral dysfunction, prolonged sedation- related encephalopathy Dx: -Patient continues to remain lethargic and somnolent on the 5th day s/p extubation and sedation discontinuation but is capable of making eye contact, understanding commands, and responding to or complying with demands Rx: -Continue to monitor as patient's mental status is expected to improve with time RRx: -Although patient's return to mental baseline seems to be progressing slowly, this outcome is somewhat expected due to her advanced age, multiple risk factors, ongoing leukocytosis, prolonged period of intubation and sedation, and lung disease. #Intensive care unit - acquired weakness (ICUAW) Due to patient's ICU status, difficulty weaning from the ventilator, presentation of diffuse, symmetrical limb weakness, and lack of other clear cause for neuromuscular dysfunction (e.g., stroke, spinal cord injury), the likely working diagnosis is ICUAW Dx: -Patient remains very weak with 2/5 power in upper extremities and 0/5 power in lower extremities 5 days s/p intubation and extubation Rx: -Asked PT to demonstrate exercises to both nurses as well as patients' loved ones that can help improve patient's passive range of motion as well as her general mobility and function -Stressed the importance of getting patient to move and regain muscle function to patients' loved ones (occurred during goals of care discussion) -Continue having patient work with PT in regaining mobility and function RRx: -PT has been working with patient and, although progressing slowly, she seems to be regaining mobility and function little by little as time passes Cardio: #Hypertension DDx: primary hypertension, 2/2 CKD, 2/2 renal artery stenosis Dx: -05/18 CTA of abdominal aorta and iliofemoral runoff showed atretic renal arteries Rx: -Increased dosage of PO carvedilol from 3.125 mg qD to 6.25 mg BID -Continue patient's home antihypertensives: PO amlodipine 10 mg qD, PO losartan 50 mg qD, PO carvedilol 3.125 mg qD RRx: -Patient's blood pressures have markedly improved from before her home antihypertensive regimen was started #Peripheral arterial disease Patient noted to have reduced pulses on right leg. Toes on right foot appear blue The cyanosis/discoloration of right foot seems to be slowly progressing during this hospital admission Today, wounds seem a bit improved Dx: -05/18 CTA of abdominal aorta and iliofemoral runoff showed occlusion with possible thrombus in the right proximal common iliac artery, opacification of the more distal right common iliac artery, occlusion of the distal right superficial femoral artery, occlusion of the right popliteal artery with only trace filling of anterior tibial and right posterior tibial arteries, and occlusion of the left posterior tibial artery at its origin -Right lower extremity arterial duplex ultrasound showed severe obstructive PAD. No flow posterior tibial artery -05/17 foot XR showed no overt signs of osteomyelitis Rx: -Continue wound care as per wound care nurse -Follow up with vascular surgery in the outpatient setting RRx: -The cyanosis / discoloration of the phalanges on the right foot do not seem to have advanced or spread from yesterday, and have seemingly improved slightly; will continue to monitor #HFpEF [EF 50-55%] Dx: -05/10 TTE: Mild LVH. Estimated EF at 50-55%. There is grade I diastolic dysfunction. The RV size is mildly increased with normal systolic function. Huertas sign present. Rx: ?Continue Guideline-Directed Medical Therapy now that NG tube has been placed (though most evidence for mortality benefit and QOL improvement of GDMT is for HFrEF w/ EF<40%): 1. RAAS inhibitor: continue patient's home PO losartan 50 mg qD 2. Beta-eligio: continue patient's home PO carvedilol 6.25 mg BID 3. Mineralocorticoid receptor antagonist: patient does not seem to have a home medication of this drug class 4. SGLT-2 inhibitor: patient does not seem to have a home medication of this drug class #Atrial fibrillation?paroxysmal Dx: -From telemetry review patient is in sinus rhythm with rates between 80s?100s overnight ? [id number]: 9 points [12.2% stroke risk per year] Has bled 4 points [high risk of major bleeding] -Today, patient was noted to have some episodes of atrial fibrillation Rx: -Started PO apixaban 2.5 mg BID for anticoagulation -Continue PO amiodarone 200 mg qD PULM: #?Ventilator-associated pneumonia, new From 05/15 - 05/18, patient's WBC uptrended (7.7 -> 20.4 -> 28.7 -> 33.0) which was attributed to new RLL pneumonia seen on 05/18 CTA study WBC has now started downtrending beginning on 05/19 (33.0 -> 27.8 -> 21.5) as patient's suspected pneumonia has been treated with vancomycin and now linezolid DDx: atelectasis, aspiration pneumonia Dx: -05/18 CTA of abdominal aorta and iliofemoral runoff revealed fibrotic changes at the pleura of the lung bases suggestive of chronic interstitial lung disease as well as either atelectasis or new pneumonia at the RLL that, based on prior imaging that seems to have developed while the patient been in the ICU Rx: -Switched IV linezolid 600 mg q12HR to NG route (05/19--) -Discontinued IV vancomycin (05/17-05/19) RRx: -Patient's leukocytosis seems to be downtrending after using antibiotics to treat new suspected RLL pneumonia, suggesting that the initial leukocytosis may have been 2/2 this respiratory infection which had been resistant to patient's previous antibiotic regimen that was tailored for the CAP she presented with #Chronic interstitial lung disease w/ possible fibrosis DDx: idiopathic pulmonary fibrosis, medication adverse effect (amiodarone) Dx: -05/18 CTA of abdominal aorta and iliofemoral runoff revealed fibrotic changes at the pleura of the lung bases suggestive of chronic interstitial lung disease as well as either atelectasis or new pneumonia at the RLL that, based on prior imaging that seems to have developed while the patient been in the ICU Rx: -Continue respiratory support with BiPAP and supplemental oxygen RRx: -Patient continues to have labored, mouth breathing and remains on BiPAP today #Acute hypoxic respiratory failure secondary to community-acquired pneumonia, requiring intubation (resolved) Patient has recently completed 7-day course of IV cefepime 2 gm qD and 5-day course IV Zithromax 250 mg qD Dx: -05/18 CTA of abdominal aorta and iliofemoral runoff revealed fibrotic changes at the pleura of the lung bases suggestive of chronic interstitial lung disease as well as either atelectasis or new pneumonia at the RLL that, based on prior imaging that seems to have developed while the patient been in the ICU -05/10 MRSA Screen (+) -05/09 BCx both (-) -05/09 sputum culture grew pansensitive Streptococcus pneumoniae Renal: #KRYSTAL on CKD (improving) Patient's urine output today was 1500 mL (fluid balance: -980 mL) DDx: Prerenal KRYSTAL in setting of septic shock and likely ATN Dx: BUN 39 from 54 yesterday, CR 1.7 from 1.9 yesterday Rx: -Per nephrology recommendations, patient does not currently require HD RRx: -Follow-up on renal panel and monitor urine output. Endocrine #IDDM II Patient on 30 units of insulin glargine daily at home along with regular insulin Blood glucose today = 145 Rx: -Continue SC insulin degludec 20 units daily -Continue step 3 insulin correction scale RRx: -Monitor blood glucose and titrate insulin accordingly #Hx of Hypothyroidism Dx: TSH elevated at 6 with normal FT4 Rx: -Continue PO levothyroxine 75 mcg ACBR GI: #No active issues Heme: #Leukocytosis From 05/15 - 05/18, patient's WBC uptrended (7.7 -> 20.4 -> 28.7 -> 33.0) which was attributed to new RLL pneumonia seen on 05/18 CTA study WBC has now started downtrending beginning on 05/19 (33.0 -> 27.8 -> 21.5) as patient's suspected pneumonia has been treated with vancomycin and now linezolid DDx: VAP, aspiration pneumonia, cellulitis or osteomyelitis of R foot Dx: -05/18 CTA of abdominal aorta and iliofemoral runoff revealed fibrotic changes at the pleura of the lung bases suggestive of chronic interstitial lung disease as well as either atelectasis or new pneumonia at the RLL that, based on prior imaging that seems to have developed while the patient been in the ICU -05/17 foot XR was negative for signs of osteomyelitis -05/17 BCx's both show no growth after 48 hours -Per Rads, 05/16 CXR shows significant right lung pneumonia, being notably extensive in the RUL -05/15 UCx results pending -05/10 MRSA Screen (+) Rx: -Switched IV linezolid 600 mg q12HR to NG route (05/19--) -Discontinued IV vancomycin (05/17-05/19) RRx: -Patient's leukocytosis seems to be downtrending after using antibiotics to treat new suspected RLL pneumonia, suggesting that the initial leukocytosis may have been 2/2 this respiratory infection which had been resistant to patient's previous antibiotic regimen that was tailored for the CAP she presented with #Chronic normocytic anemia DDx: Anemia of chronic disease, CKD Dx: Hb 10.3 from 11.0 yesterday Rx: Continue to monitor CBC. ID: #Ventilator-associated pneumonia Dx: -See Respiratory section. Rx: -See Respiratory section. Skin: #Right foot bullae Developed likely as a result of patient's diabetic status and peripheral arterial disease leading to hypoperfusion of the lower extremities (especially on the R) DDx: cellulitis, dependent edema, severe PAD, osteomyelitis Dx: -05/18 CTA of abdominal aorta and iliofemoral runoff showed occlusion with possible thrombus in the right proximal common iliac artery, opacification of the more distal right common iliac artery, occlusion of the distal right superficial femoral artery, occlusion of the right popliteal artery with only trace filling of anterior tibial and right posterior tibial arteries, and occlusion of the left posterior tibial artery at its origin -On exam right foot appears discolored with absent DP and PT pulses -05/17 foot x-ray did not show any overt signs of osteomyelitis Rx: -Continue wound care as per wound care nurse -Follow up with vascular surgery in the outpatient setting RRx: -Seems to be improving ICU Health Maintenance: Dispo: BiPAP, receiving GT linezolid Diet: Nepro via NG Tube @ 10 mL/hr DVT ppx: PO Apixaban 2.5 mg BID GI ppx: IV Protonix 40mg qD Central line: Yes RIJ on 05/12- Arterial line: No Mena: No [05/10 - 05/20] Code status: DNR Plan of care discussed Dr. Sammie Butler, DO Internal Medicine, PGY-1 Attending Provider Attestation/Addendum I saw and examined patient personally and supervised PGY 1 resident, Dr. Butler with formulating a management plan. I agree with the documentation with the exceptions as listed below. Today goals of care discussion was had with patient, life partner JOO Farnsworth and medical social worker Toño. The ICU team was also in attendance. Discussed patient's current care plan, high risk of deterioration and possible . Eventually decision was made to switch patient's CODE STATUS to DNR and POLST form was signed. Plan of care discussed with Attending Dr. Sammie Eason MD PGY 2 Disclaimer: This note was dictated by speech recognition. Minor errors in transcription manager may be present due to voice recognition software.
--- NOTE | 2025-05-19 11:35 | XR_ITS ---
Examination: AP chest single view TECHNIQUE: AP portable semiupright chest single view Date and time: May 19, 2025 1154 hours INDICATIONS: Post orogastric tube placement FINDINGS: Orogastric tube satisfactory position Significant right lung pneumonia Prominent vascular congestion IMPRESSION: Orogastric tube tip in the stomach satisfactory position
--- NOTE | 2025-05-19 14:45 | PC.SS ---
Goals of care meeting conducted at patient's bedside with patient's granddaughter, Idalia and patient's partner, Daja. Clinical team provided overview on patient's condition, prognosis and treatment plan. Due to patient's fragile condition decision made to transition patient from FULL Code status to DNR/DNI. Patient confirmed decision. POLST form completed. Copy of POLST placed in patient's chart. Daja Virgen is the patient's surrogate medical decison maker.
[2025-05-19] MEDS: ALBUTEROL/IPRATROPIUM (Duoneb) RT SOL 3 ML NEBU INH (18:14)
[2025-05-19] MEDS: HYDROmorphone INJ 2 MG/ML VIAL 0.25 MG IVP (19:46)
[2025-05-19 19:55] LABS: Albumin, Serum 3.0 gm/dL (3.4-4.8); Anion Gap 8 (7-16); BUN/Creatinine Ratio 28 Ratio (12-20); Blood Urea Nitrogen 48 mg/dL (9-23); Calcium 8.0 mg/dL (8.3-10.6); Calcium (Corrected) 8.8 mg/dL (8.5-10.1); Carbon Dioxide 24.6 mMol/L (20.0-31.0); Chloride 111 mMol/L (98-107); Creatinine (Component) 1.7 mg/dL (0.6-1.3); Estimated Creatinine Clearance 33.1 mL/min (>60); Glucose 117 mg/dL (74-106); Osmolality,Calculated 300 (275-295); Phosphorous 3.5 mg/dL (2.4-5.1); Potassium 3.3 mMol/L (3.4-5.1); Sodium 144 mMol/L (136-145); eGFR 30 See Note
[2025-05-19] MEDS: ASCORBIC ACID 250 MG TABLET 500 MG PO (21:45)
[2025-05-19] MEDS: ATORVASTATIN CALCIUM 10 MG TABLET PO (21:46)
[2025-05-20] VITALS (59 sets, daily range): BP systolic 100–171; BP diastolic 43–139; PULSE 60–105; RESP 0–27; TEMP 36.1–36.4; O2SAT 93–100; BMI 42.6
[2025-05-20] MEDS: ALBUTEROL/IPRATROPIUM (Duoneb) RT SOL 3 ML NEBU INH ×4 (00:01→18:31)
[2025-05-20] MEDS: HYDROmorphone INJ 2 MG/ML VIAL 0.25 MG IVP ×2 (05:24→08:26)
[2025-05-20] MEDS: HEPARIN SOD INJ 5000 UNIT/ML VIAL SC ×2 (05:34→13:23)
[2025-05-20 05:54] LABS: Basophils # (Auto) 0.1 Thou/mm3 (0.0-0.2); Basophils % (Auto) 0 % (0-2.5); Eosinophils # (Auto) 0.2 Thou/mm3 (0.0-0.5); Eosinophils % (Auto) 1 % (0-10); Hematocrit 32.2 % (36.0-46.0); Hemoglobin 10.3 g/dL (12.0-16.0); Immature Granulocytes Auto 1.26 Thou/mm3 (0.00-0.00); Lymphocytes # (Auto) 1.6 Thou/mm3 (1.0-4.8); Lymphocytes % (Auto) 7 % (10-50); Mean Corpuscular HGB Conc 32.0 g/dl (31.0-37.0); Mean Corpuscular Hemoglobin 29.4 pg (25.0-35.0); Mean Corpuscular Volume 92 fL (80-100); Monocytes # (Auto) 0.8 Thou/mm3 (0.0-0.8); Monocytes % (Auto) 4 % (0-12); Neutrophils # (Auto) 17.7 Thou/mm3 (1.8-7.7); Neutrophils % (Auto) 82 % (37-80); Nucleated Red Blood Cell # 0.03 Thou/mm3 (0.00-0.00); Nucleated Red Blood Cell % 0 /100 WBC (0); Platelet Count 192 Thou/mm3 (140-440); RDW Standard Deviation 49.8 fL (36.4-46.3); Red Blood Count 3.50 Miln/mm3 (4.00-5.20); White Blood Count 21.5 Thou/mm3 (3.6-11.0)
[2025-05-20 06:11] LABS: Alanine Aminotransferase 41 U/L (10-49); Albumin, Serum 3.0 gm/dL (3.4-4.8); Albumin/Globulin Ratio 1.1 (1.2-2.2); Alkaline Phosphatase 62 U/L (46-116); Anion Gap 10 (7-16); Aspartate Amino Transferase 33 U/L (0-34); BUN/Creatinine Ratio 23 Ratio (12-20); Bilirubin,Total 0.3 mg/dL (0.3-1.2); Blood Urea Nitrogen 39 mg/dL (9-23); Calcium 8.1 mg/dL (8.3-10.6); Calcium (Corrected) 8.9 mg/dL (8.5-10.1); Carbon Dioxide 24.3 mMol/L (20.0-31.0); Chloride 110 mMol/L (98-107); Creatinine (Component) 1.7 mg/dL (0.6-1.3); Estimated Creatinine Clearance 33.1 mL/min (>60); Globulin 2.8 gm/dL (2.3-3.5); Glucose 145 mg/dL (74-106); Magnesium 2.0 mg/dL (1.6-2.6); Osmolality,Calculated 299 (275-295); Phosphorous 3.6 mg/dL (2.4-5.1); Potassium 3.6 mMol/L (3.4-5.1); Sodium 144 mMol/L (136-145); Total Protein 5.8 gm/dL (5.7-8.2); eGFR 30 See Note
--- NOTE | 2025-05-20 07:00 | ESPR_ITS ---
<Statement entered by Barry Cochran MD - 05/25/25 09:35> TOTAL TIME: 45MINUTES ON DIRECT MEDICAL CARE, MANAGEMENT - COORDINATION AND COUNSELING > 50% OF TOTAL TIME I saw and evaluated the patient. I reviewed the resident?s note and agree with findings and plan as documented in the resident?s note. <Statement entered by Jaren Eason MD - 05/21/25 15:08> I saw and examined patient personally and supervised PGY 1 resident, Dr. Butler with formulating a management plan. I agree with the documentation with the exceptions as listed below. Patient's Coreg was increased to 6.25 mg p.o. twice daily from 3.25 mg p.o. twice daily for better blood pressure and heart rate control. Linezolid was also switched to GT from IV to minimize IV medication as IV access is limited. Patient's weakness appears to be improving slowly and she is currently off of BiPAP and on supplemental O2 via oxy mask. Plan of care discussed with Attending Dr. Sammie Eason MD PGY 2 Disclaimer: This note was dictated by speech recognition. Minor errors in salmon troll fisher may be present due to voice recognition software. Documentation for date of: 05/20/25 Subjective Subjective Interval history: (DISCLAIMER This documentation was retroactively created and back-dated for and is intended to serve as the Progress Note detailing patient's course on that date. Previously, an error was made where instead of creating a brand new Progress Note for 05/20, the already signed Progress Note from 05/19 was opened instead and updates intended for 05/20 were inserted into the Progress Note intended to describe patient's course on 05/19, thereby leaving a singular Progress Note dated 05/19 which describes future 05/20 updates and no 05/20 Progress Note instead of two Progress Notes for 05/19 and 05/20 which accurately recount the patient's course on their correctly corresponded dates. This conventional mortgage underwriter apologizes for any misunderstanding or inconvenience that has been caused on his behalf. - Javon Butler, DO [PGY-1]) 80 year-old female with PMHx noted for HFpEF, A-fib on Eliquis, bradycardia s/p pacemaker placement in 2022, hypothyroidism,chronic back pain, IDDM II, and hypertension was brought in from home by ambulance for complaints of worsening shortness of breath. No further history obtained from EMS, at the ED patient's BP 75/50 with heart rate of 102 and temp 105.1, labs were pH 7.29 WBC 24, creatinine 2.2, lactate 6, troponin 45, BNP 2800, Pro-Jamshid 23, and TSH of 6. ABG pH 7.29 and pCO2 of 41. CXR showed significant right lobar pneumonia with UA noted for high WBC/RBC/epithelial cells. Head CT was negative for acute findings, patient was intubated, femoral central line along with femoral arterial line were placed in ED. Patient received 3L of LR boluses, received 1 dose of ceftriaxone and azithromycin and was started on Levophed along with dobutamine. Patient will be admitted to ICU for further management and care of septic shock along with acute hypoxic respiratory failure in setting of community-acquired pneumonia. Interval History 05/10/25: Patient was examined at bedside; she is currently intubated and chemically induced on fentanyl drip to maintain RASS score -2 for mechanical ventilation. Current plan is to continue IV NS maintenance @ 100 mL/hr, IV cefepime 2 gm qD (started 05/10 @ 09:00) and IV Zithromax 250 mg qD (started 05/10 @ 09:00) for treatment of her community-acquired pneumonia, follow up on sputum culture to guide antibiotic de-escalation, and continue PO Cordarone 200 mg qD and PO Eliquis 2.5 mg BID (both started 05/10 @ 09:00) for treatment of her atrial fibrillation. Of note, patient's endotracheal tube was somehow dislodged today and required readjustment via bronchoscope to return the tube to its proper position. Will continue to monitor patient as her pneumonia is treated (including the performance of daily awakening trials) with the hope that resolution of the infection will remove her state of septic shock and ongoing acute hypoxic respiratory failure (disposition condition requires successful weaning off of ventilatory support and pressors). 05/11/2025: Overnight patient was given magnesium sulfate 4 g IV x 1. Ventilator on AC MV, VT 400, RR 20, PEEP 5, FiO2 40%. On fentanyl infusion, RASS -2. Input 2976, output 20 cc, balance +2956 cc. Patient responsive to noxious stimuli but RASS appears closer to -3, will wean sedation. Labs showed NA 138, K4.1, bicarb 19.4, BUN 36, CR 3.6, Phos 5.5. ABG pH 7.26, pCO2 41. Blood and sputum cultures pending, sputum Gram stain grew 4 plus GPC preliminary. Currently on Levophed infusion, titrating as necessary. Today will give 500 cc normal saline IVF bolus for fluid challenge. If urine output does not improve, will consult nephrology for possible urgent hemodialysis. 05/12/2025: Overnight sedation was weaned, no other events. Input 1165, output 0 cc. Patient remains intubated and mechanically ventilated, RASS -2 on fentanyl and Precedex infusion. Labs showed Hb 9.7, WBC 15.9, BUN 46, CR 4.5. Right lower extremity arterial duplex showed severe right leg obstructive PAD. Today we will place temporary dialysis catheter and plan for low rate dialysis as per nephrology recommendations. 05/13/2025: No events overnight. Input 1306, output 4 5, balance +901 cc. This morning patient remains on Precedex infusion with a RASS of -1. Norepinephrine infusion was turned off overnight as well as fentanyl infusion. ABG showed pH 7.32, pCO2 43. Hb 9.4, PLT 79, K3.7, Mg 1.8, BUN 43, CR 3.4. Will continue with daily SAT's and give patient a break on pressure support for 2 hours today. No plans for extubation as yet as patient's neurological status is still unable to be assessed due to residual sedation. Bumex 2 Mg IV x 1 as per nephrology recommendations. HD will also be held today as per nephrology. 05/14/2025: Overnight patient was switched between volume control and spontaneous ventilation. Input 3120, output 1419, balance 1630. Patient remains on low- dose Precedex and following commands labs showed WBC 3, Hb 8.7, PLT 65, K3.2, bicarb 19 point, BUN 48, CR 3.4. KCl 40 mEq IV x 1, Bicitra 30 mL GT twice daily and Bumex 2 Mg IV x 1 given as per nephrology recommendation. No hemodialysis today 05/15/2025: Overnight patient's alternated between volume control and pressure support ventilation due to vent dyssynchrony. 2258 cc, output 990 cc, balance +1268 cc. This morning patient was on low-dose Precedex but responds to noxious stimuli. Blood glucose between 200?3 100s in past 24 hours. Labs showed Hb 8, PLT 81, NA 137, K3.6, HCO3 22.6, BUN 44, CR 3.2, Mg 1.8. Sputum culture grew strep pneumonia pansensitive to all tested antibiotics. Will continue to hold on hemodialysis as per nephrology recommendations and Bicitra for 1 more day. Repleted with KCl 20 mEq IV x 1, magnesium sulfate 2 g IV x 1 and de-escalated antibiotics to ceftriaxone 1 g IV daily. Increased insulin degludec to 18 units daily and switch to insulin correction scale 3. Will attempt SBT today after SAT. Also will remove femoral central line. 05/16/2025: No overnight events. Today, patient was given SBT again while sedated on low-dose Precedex (due to her history of agitation and distress while on sedation vacation) to assess her likelihood of being extubated successfully purely from a physiological standpoint (tidal volume generation, maintenance of stable respiratory rate, achievement of adequate oxygenation, etc.) with anxiety/agitation removed from the equation; SBT was passed successfully. Patient's Rapid Shallow Breathing Index (Tidal Volume / RR) was calculated to be 450/23 = 51 breaths/min/L, suggesting likely successful extubation due to being a good amount below generally accepted threshold of 105 breaths/min/L. Patient's diaphragmatic and accessory muscle strength were also assessed via Negative Inspiratory Force testing and her NIF was found to be more negative than -70 cm H2O, further supporting the likelihood of successful extubation due to being more negative than generally accepted threshold -30 cm H2O. There was also airflow heard around the endotracheal tube during cuff leak test suggesting no upper airway obstruction or edema. Due to these auspicious findings, the decision was made to extubate the patient which she seems to have been tolerating well. However, since being extubated, patient has been having hypertension with SBP sometimes surpassing 200 (but usually being in the 180s-190s) which has been refractory to IV labetalol 10 mg x2, IV tylenol (pain relief). Patient will be given IV fentanyl 25 mcg (to treat possible opiate withdrawal) and have IV hydralazine 10 mg q4HR prn for SBP>180 to see if these measures will ameliorate her significant hypertension. Her home antihypertensives will be restarted once patient can tolerate PO medications or have oral route access instated. Of note, patient has new leukocytosis with WBC elevation to 20.4 from 7.7 yesterday; her dialysis line may be the nidus of infection but removal was ultimately decided against due to it being her only route of central access. Repeat CXR was clear, lowering clinical suspicion for new pneumonia. From nephrology's standpoint, patient was noted to have made 1000 mL of urine and HD can be held until Monday at which point her need for HD will be reevaluated. 05/17/2025: Overnight patient had no events. Input 316 cc, output 550 cc, balance -253 cc. Patient examined in ICU this morning, complains of mild SOB and is mouth breathing. She is oriented x 3. Denies any chest pain/pressure, palpitations, confusion or nausea. On exam patient had inspiratory stridor. Labs showed Hb 10.8, WBC up trended to 28.7 from 20.4, K3.5, NA 142, BUN 47, CR 2.3, Mg 1.7, glucose 203. Patient on last day of a 7-day course of cefepime IV for aspiration pneumonia. D5/0.45% NS at 60 cc/h was started to avoid hyponatremia as patient is currently n.p.o. as she failed swallow evaluation, will reattempt tomorrow. Insulin degludec was increased to 20 units daily. Right foot x-rays were performed which did not show any signs of osteomyelitis. For her uptrending white cell count, etiology suspected to be VAP and a one-time dose of vancomycin IV was given. Repeat blood cultures were also ordered. Bedside ultrasound of left IJ was also performed, vessel appeared to be stenosed with possible obstruction as well. This may be due to her implantable cardiac pacemaker and multiple procedures in the past. If her RIJ temporary dialysis catheter is removed, venous access on the left IJ would not be attempted/possible due to distorted anatomy. Will attempt today to achieve peripheral IV access. Also attempts were made to contact her LAURIKDaja at [phone], but were unsuccessful. 05/18/2025: No overnight events. Patient examined at bedside; she is oriented x 3 and observed to be on Oxygen Mask with labored breathing noted. The inspiratory stridor patient had yesterday seems moderately improved. The cyanosis / discoloration of the phalanges on the right foot do not seem to have advanced or spread from yesterday but there was noted sloughing of skin with serous drainage from the hallux (with a curvilinear lesion atop the hallux creating a depressed contour) upon removal of the SCDs as well as some new dark patches along the calcaneus that extend across the medial-plantar surface of the right foot. Patient continues to fail swallow and speech evaluation making PO route access nonviable. After assessing the patient, dietitian recommended against PPN at this moment in time due to the poor ratio of nutrition to large volume of feeding in the setting of patient's HFpEF and her edematous state. He recommends that the patient be given another chance to pass the swallow and speech evaluation tomorrow before considering PPN or tube feeding. Concerningly, patient's WBC count has continued uptrending without a confirmed source of infection; today, it increased to 33.0 from 28.7. Goals of care were discussed with patient's partner Daja and granddaughter Idalia. The concern for possible infection due to her WBC elevation was brought up as well as the possibility that the infection could be at the right foot, infection of one of her lines, or possible ongoing pneumonia despite antibiotic treatment. It was explained, however, that patient may not be the best candidate for vascular surgical intervention due to the need for a lower extremity CTA with contrast which would risk damaging her slowly healing kidneys in the setting of recent KRYSTAL. Other topics discussed included the hesitancy to remove her HD catheter line (even if it is infected) due to it being our only central access point and patient's lack of other viable areas to establish central access as well as the idea of pursuing hospice care in an effort to minimize patient's suffering as the clinical utility of more aggressive measures may not be worth it in her weakened state. For now, the plan moving forward is to continue patient's IV vancomycin for suspected ongoing infection in hopes that this will address her current leukocytosis and improve her condition in her weakened state s/p prolonged intubation and sedation. 05/19/2025: Overnight, patient had to be put back on BiPAP due to continuing tachypnea and respiratory distress. Patient was examined at bedside; she remains somnolent, lethargic, and generally weak. Of note, patient's WBC downtrended to 27.8 from 33.0 and her VBG results were relatively benign. The decision was made today to switch vancomycin to linezolid due to both 05/17 blood cultures being negative and evidence on abdominal CTA of either atelectasis or new pneumonia at the RLL in the setting of chronic interstitial lung disease w/ fibrosis that, based on prior imaging, seems to have developed while she had been in the ICU. The same CTA also showed occlusions in many different areas of the lower extremity vasculature that will be discussed in the A&P. Today, patient had an NG tube placed so that she could be started on tube trickle feeding @ 10 mL/hr as well as have her home medications restarted including: PO amiodarone 200 mg qD (previously on IV amiodarone), PO amlodipine 10 mg qD, PO atorvastatin 10 mg qD, PO bupropion HCl 200 mg BID, PO carvedilol 3.125 mg qD, PO escitalopram oxalate 20 mg qD, PO levothyroxine 75 mcg qD (will be started tomorrow since patient already received an IV dose today), and PO losartan 50 mg qD. Another goals of care discussion was held today at patient's bedside around 3:15 PM with patient's partner Daja (decision-maker) and granddaughter Idalia. During this discussion, it was emphasized to the patient's loved ones that the care team's goal was aligned with theirs in doing what was ultimately best for the patient but that there remained a very real possibility of the patient rapidly deteriorating at any moment due to her currently fragile state of health. The topic of Code Status was brought up to Daja and Idalia and it was explained to them that, should the patient's current condition acutely decline, that aggressive interventions including intubation, chest compressions, and defibrillation would most likely be ineffective in saving the patient given her age and infirmity and would, in all probability, only cause the patient to needlessly suffer. It was also mentioned that, in the unlikely event in which patient did manage to pull through after such interventions, that she would almost certainly end up permanently intubated or live in a state with drastically decreased quality of life. After patients' loved one verbalized their understanding of the ramifications of what their Code Status choice would be, they were provided a form to sign by Sliding [employer] Maker indicating what decision they chose. 05/20/25: No overnight events. Patient continues to require BiPAP but seems to be improving both in mental status and neuromusculoskeletal function. The wounds on her right foot also seem to be improving. Today, patient's linezolid was switched from IV to GT, her p.o. carvedilol dosing was increased from 3.125 mg twice daily to 6.25 mg twice daily, and she was given a one-time dose of IV Bumex 1 mg. Auspiciously, patient's leukocytosis has downtrended again (from 33.0 two days ago to 27.8 yesterday to 21.5 today) and her creatinine improved to 1.7 from 1.9 yesterday. Current plan remains unchanged and patient will continue on her antibiotic regimen for suspected right lower lobe pneumonia seen on CT imaging. Exam Vital Signs Temp Pulse Resp BP Pulse Ox O2 Del Method O2 Flow Rate 97.3 F 61 19 139/49 H 98 Nasal Cannula 1 05/21/25 08:01 05/21/25 10:00 05/21/25 10:00 05/21/25 10:00 05/21/25 10:00 05/21/25 08:01 05/21/25 06:40 FiO2 1 05/21/25 08:01 Narrative Exam Constitutional Morbidly obese, elderly female. HEENT Normocephalic, atraumatic. PERRL. EOMI. Patent nares. Trachea midline Respiratory On BiPAP. Reduced air entry at bases. Mouth breathing observed. Right IJ temp dialysis catheter noted. Exit site clean. Cardiovascular S1 and S2 audible, RRR. No murmurs carotid bruit. No gross JVD. Abdominal Soft, obese and non tender to palpation in all quadrants. BS +. Genitourinary No bladder tenderness, no flank pain. Normal to palpation Musculoskeletal Extremities tone within normal limits. Neurological Alert and oriented x 3 [person and place]. Power 1/5 in upper EXTR and 0/5 in lower extremities Skin Bluish discoloration of great toe, 2nd, 3rd and 4th toes on right foot. Ulcerated lesion on hallux. Dark patches along the calcaneus that extend across the medial-plantar surface of the right foot. Absent dorsalis pedis and posterior tibial pulse on right leg. Cold extremities (right colder than left). Objective Labs 05/21/25 04:30 05/21/25 04:30 Labs: Laboratory Results - last 24 hr 05/21/25 04:30 WBC 18.0 H RBC 2.89 L Hgb 8.6 L Hct 27.7 L MCV 96 MCH 29.8 MCHC 31.0 RDW Std Deviation 52.2 H Plt Count 179 Neut % (Auto) 82 H Lymph % (Auto) 9 L [place] % (Auto) 4 Eos % (Auto) 0 Baso % (Auto) 0 Neut # (Auto) 14.7 H Lymph # (Auto) 1.5 [place] # (Auto) 0.7 Eos # (Auto) 0.1 Baso # (Auto) 0.0 Immature Gran # (Auto) 0.89 H Absolute Nucleated RBC 0.00 Immature Gran % 5 H Nucleated RBC % 0 Sodium 144 Potassium 3.9 Chloride 111 H Carbon Dioxide 24.6 Anion Gap 8 BUN 40 H Creatinine 1.8 H Estim Creat Clear Calc 31.8 L eGFR 28 L BUN/Creatinine Ratio 22 H Glucose 150 H Calculated Osmolality 299 H Calcium 7.9 L Corrected Calcium 8.9 Phosphorus 3.9 Magnesium 1.6 Total Bilirubin 0.3 AST 20 ALT 31 Alkaline Phosphatase 56 Total Protein 4.9 L Albumin 2.7 L Globulin 2.2 L Albumin/Globulin Ratio 1.2 ABG Interpretation ABG results: 05/09/25 05/10/25 05/11/25 23:08 07:18 03:56 ABG pH 7.29 L 7.25 L 7.26 L ABG pCO2 41 49 H 41 ABG pO2 133 H 95 D 68 L D ABG HCO3 20 21 19 L ABG O2 Saturation 97 95 92 ABG Base Excess -7 L -6 L -8 L VBG pH VBG pCO2 VBG pO2 VBG Base Excess 05/12/25 05/13/25 05/14/25 04:09 04:02 04:18 ABG pH 7.23 L 7.32 L 7.38 ABG pCO2 44 43 34 ABG pO2 78 L 71 L 121 H D ABG HCO3 19 L 22 20 ABG O2 Saturation 94 92 97 ABG Base Excess -8 L -4 L -5 L VBG pH VBG pCO2 VBG pO2 VBG Base Excess 05/14/25 05/15/2505/15/25 13:15 04:14 05:10 ABG pH 7.41 7.38 7.41 ABG pCO2 33 40 35 ABG pO2 113 H 48 L* D 89 D ABG HCO3 21 23 23 ABG O2 Saturation 98 82 L 98 ABG Base Excess -4 L -2 -2 VBG pH VBG pCO2 VBG pO2 VBG Base Excess 05/16/25 05/18/25 05/19/25 04:04 09:32 06:48 ABG pH 7.43 7.42 ABG pCO2 36 38 ABG pO2 84 74 L ABG HCO3 24 25 ABG O2 Saturation 96 93 ABG Base Excess 0 0 VBG pH 7.49 VBG pCO2 32 L VBG pO2 126 H VBG Base Excess 2 Quality Measures Quality Measures VTE prophylaxis, sepsis Current suspected stage: ruled out Possible source: pulmonary Blood cultures ordered: yes Antibiotic ordered: Yes and none Advance care planning discussed with:: significant other and other Assessment & Plan Assessment Current Active Medications: Generic Name Dose Route Start Last Admin Trade Name Freq PRN Reason Stop Dose Admin Acetaminophen 650 mg 05/10/25 04:13 05/10/25 21:34 Acetaminophen 325 Mg Tablet PO 06/09/25 04:12 650 mg Q4HR PRN Administration PAIN SCALE 1-3 (mild Acetaminophen 650 mg 05/10/25 04:13 05/19/25 05:00 Acetaminophen Supp 650 Mg Supp [place] 06/09/25 04:12 650 mg Q4HR PRN Administration PAIN SCALE 1-3 (mild Hydrocodone Bitart/Acetaminophen 1 tab 05/20/25 06:56 05/20/25 20:09 Hydrocodone/Apap 5/325 Tablet PO 05/25/25 06:55 1 tab Q6HR PRN Administration PAIN SCALE 4-10(Mod-Sev Al Hydrox/Mg Hydrox/Simethicone 30 ml 05/10/25 04:13 Mg Hyd/Al Hyd/Jackeline (Maalox Reg) Susp 30 Ml Udc PO 06/09/25 04:12 Q4HR PRN Heartburn or Upset Stomach Albuterol/Ipratropium 3 ml 05/19/25 01:00 05/21/25 06:40 Albuterol/Ipratropium (Duoneb) Rt Suma 3 Ml Nebu INH 06/18/25 00:59 3 ml Q6HRRT YURY Administration Amiodarone HCl 200 mg 05/10/25 09:00 05/21/25 08:34 Amiodarone Hcl 200 Mg Tablet PO 06/09/25 08:59 200 mg QDAY YURY Administration Amlodipine Besylate 10 mg 05/19/25 13:15 05/21/25 08:36 Amlodipine Besylate 5 Mg Tablet PO 06/18/25 13:14 10 mg QDAY YURY Administration Apixaban 2.5 mg 05/20/25 15:40 05/21/25 08:34 Apixaban 2.5 Mg Tablet PO 06/19/25 15:39 2.5 mg BID YURY Administration Artificial Tears 0 drop 05/13/25 14:52 05/16/25 23:58 Artificial Tears 225 Drop/15 Ml Btl BOTH EYES 06/12/25 14:51 2 drops PRN PRN Administration TO KEEP EYES MOIST Ascorbic Acid 500 mg 05/17/25 09:00 05/21/25 08:34 Ascorbic Acid 250 Mg Tablet PO 06/16/25 08:59 500 mg BID YURY Administration Atorvastatin Calcium 10 mg 05/19/25 21:00 05/20/25 20:09 Atorvastatin Calcium 10 Mg Tablet PO 06/18/25 20:59 10 mg HS YURY Administration Bupropion HCl 200 mg 05/19/25 13:15 05/21/25 08:33 Bupropion Hcl 100 Mg Tablet PO 06/18/25 13:14 200 mg BID YURY Administration Carvedilol 6.25 mg 05/20/25 09:00 05/21/25 08:35 Carvedilol 3.125 Mg Tablet PO 06/19/25 08:59 6.25 mg BID YURY Administration Dextrose 25 ml 05/10/25 04:27 Dextrose 50%-Water Inj 50 Ml Syringe IV 06/09/25 04:26 Q15MIN PRN BG 50-70 responsive npo pt Dextrose 50 ml 05/10/25 04:27 Dextrose 50%-Water Inj 50 Ml Syringe IV 06/09/25 04:26 Q15MIN PRN BG <50 OR BG <70 & pt unresponsive Escitalopram Oxalate 20 mg 05/10/25 09:00 05/21/25 08:33 Escitalopram Oxalate 10 Mg Tablet PO 06/09/25 08:59 20 mg QDAY YURY Administration Glucagon 1 mg 05/10/25 04:27 Glucagon Inj 1 Mg Vial IM Q15MIN PRN BG <70, and no IV access Heparin Sodium (Porcine) 2,600 unit 05/19/25 14:08 Heparin Sod Inj 1000 Unit/Ml Vial 10 Ml INDWELLCAT 06/02/25 14:07 PRN PRN DIALYSIS Hydralazine HCl 10 mg 05/18/25 19:24 Hydralazine Inj 20 Mg/Ml Vial IVP 06/15/25 16:01 Q4H PRN SBP>180 and HR <70 Hydromorphone HCl 0.25 mg 05/20/25 08:09 05/21/25 08:30 Hydromorphone Inj 2 Mg/Ml Vial IVP 05/25/25 08:08 0.25 mg Q4HR PRN Administration BREAKTHROUGH PAIN Insulin Degludec 20 unit 05/17/25 09:00 05/21/25 08:37 Insulin Degludec 5 Unit/0.05 Ml (Per 5 Units) SC 06/16/25 08:59 20 unit QDAY YURY Administration Insulin Human Lispro 0 unit 05/15/25 12:00 05/21/25 05:12 Insulin Lispro (Admelog) 1 Unit/0.01 Ml Unit SC 06/09/25 11:59 3 unit Q6HR YURY Administration Protocol Labetalol HCl 10 mg 05/18/25 19:24 05/18/25 23:22 Labetalol Inj 5 Mg/Ml Vial 20 Ml IVP 10 mg Q10MIN PRN Administration Sbp > 180 and HR >70 Levothyroxine Sodium 75 mcg 05/20/25 13:15 05/21/25 05:08 Levothyroxine Sodium 25 Mcg Tablet PO 06/19/25 13:14 75 mcg ACBR YURY Administration Linezolid 600 mg 05/20/25 11:30 05/21/25 08:33 Linezolid 600 Mg Tablet GT 05/27/25 11:29 600 mg BID YURY Administration Protocol Losartan Potassium 50 mg 05/16/25 13:30 05/21/25 08:34 Losartan Potassium 25 Mg Tablet PO 06/15/25 13:29 50 mg QDAY YURY Administration Magnesium Hydroxide 30 ml 05/10/25 04:13 Milk Of Magnesia Susp 30 Ml Udc PO 06/09/25 04:12 QDAY PRN CONSTIPATION Multivitamins 1 tab 05/17/25 09:00 05/21/25 08:33 Multivitamins Tablet PO 06/16/25 08:59 1 tab QDAY YURY Administration Ondansetron HCl 4 mg 05/20/25 10:57 05/20/25 18:26 Ondansetron Inj 2 Mg/Ml Inj 2 Ml IVP 06/19/25 10:56 4 mg Q6HR PRN Administration NAUSEA OR VOMITING Protocol Pantoprazole Sodium 40 mg 05/10/25 11:00 05/21/25 08:34 Pantoprazole Inj 40 Mg Vial IVP 06/09/25 10:59 40 mg QDAY YURY Administration Pharmacy Consult 1 each 05/17/25 08:40 Pharmacy Renal Dose Adjustment 1 Ea XX 06/16/25 08:39 PRN PRN CONSULT Sodium Chloride 1 spray 05/17/25 07:35 Saline Nasal 45 Ml Btl NASAL 06/16/25 07:34 PRN PRN CONGESTION Thiamine HCl 100 mg 05/18/25 15:15 05/21/25 08:35 Thiamine Inj 100 Mg/Ml Vial 2 Ml IVP 06/17/25 15:14 100 mg QDAY YURY Administration Zinc Sulfate 220 mg 05/17/25 09:00 05/21/25 08:34 Zinc Sulfate 220 Mg Capsule PO 05/31/25 08:59 220 mg QDAY YURY Administration Plan 80 year-old female with PMHx noted for HFpEF, A-fib on Eliquis, bradycardia s/p pacemaker placement in 2022, hypothyroidism,chronic back pain, IDDM II, and hypertension admitted to ICU for further management and care of septic shock along with acute hypoxic respiratory failure in setting of community-acquired pneumonia. No overnight events. Patient continues to require BiPAP but seems to be improving both in mental status and neuromusculoskeletal function. The wounds on her right foot also seem to be improving. Today, patient's linezolid was switched from IV to GT, her p.o. carvedilol dosing was increased from 3.125 mg twice daily to 6.25 mg twice daily, and she was given a one-time dose of IV Bumex 1 mg. Auspiciously, patient's leukocytosis has downtrended again (from 33.0 two days ago to 27.8 yesterday to 21.5 today) and her creatinine improved to 1.7 from 1.9 yesterday. Current plan remains unchanged and patient will continue on her antibiotic regimen for suspected right lower lobe pneumonia seen on CT imaging. Neuro: #Encephalopathy s/p extubation and prolonged sedation (improving) Patient was successfully extubated in the late morning of 05/16 after being intubated and sedated for more than 6 days (with daily SATs and SBTs when appropriate) Upon assessing patient around 6-8 hours s/p extubation, patient was awake with eyes open but did not make eye contact with or verbally respond to this conventional mortgage underwriter when her name was called and did not follow commands (but did move her head in response to noise stimuli) Later in the night (05/16, 18:50), patient began making eye contact and following commands According to patient's partner, patient does not have baseline dementia Today, patient continues to be drowsy but seems to understand and will respond to commands DDx: critical illness-associated cerebral dysfunction, prolonged sedation- related encephalopathy Dx: -Patient continues to remain lethargic and somnolent on the 5th day s/p extubation and sedation discontinuation but is capable of making eye contact, understanding commands, and responding to or complying with demands Rx: -Continue to monitor as patient's mental status is expected to improve with time RRx: -Although patient's return to mental baseline seems to be progressing slowly, this outcome is somewhat expected due to her advanced age, multiple risk factors, ongoing leukocytosis, prolonged period of intubation and sedation, and lung disease. #Intensive care unit - acquired weakness (ICUAW) Due to patient's ICU status, difficulty weaning from the ventilator, presentation of diffuse, symmetrical limb weakness, and lack of other clear cause for neuromuscular dysfunction (e.g., stroke, spinal cord injury), the likely working diagnosis is ICUAW Dx: -Patient remains very weak with 2/5 power in upper extremities and 0/5 power in lower extremities 5 days s/p intubation and extubation Rx: -Asked PT to demonstrate exercises to both nurses as well as patients' loved ones that can help improve patient's passive range of motion as well as her general mobility and function -Stressed the importance of getting patient to move and regain muscle function to patients' loved ones (occurred during goals of care discussion) -Continue having patient work with PT in regaining mobility and function RRx: -PT has been working with patient and, although progressing slowly, she seems to be regaining mobility and function little by little as time passes Cardio: #Hypertension DDx: primary hypertension, 2/2 CKD, 2/2 renal artery stenosis Dx: -05/18 CTA of abdominal aorta and iliofemoral runoff showed atretic renal arteries Rx: -Increased dosage of PO carvedilol from 3.125 mg qD to 6.25 mg BID -Continue patient's home antihypertensives: PO amlodipine 10 mg qD, PO losartan 50 mg qD, PO carvedilol 3.125 mg qD RRx: -Patient's blood pressures have markedly improved from before her home antihypertensive regimen was started #Peripheral arterial disease Patient noted to have reduced pulses on right leg. Toes on right foot appear blue The cyanosis/discoloration of right foot seems to be slowly progressing during this hospital admission Today, wounds seem a bit improved Dx: -05/18 CTA of abdominal aorta and iliofemoral runoff showed occlusion with possible thrombus in the right proximal common iliac artery, opacification of the more distal right common iliac artery, occlusion of the distal right superficial femoral artery, occlusion of the right popliteal artery with only trace filling of anterior tibial and right posterior tibial arteries, and occlusion of the left posterior tibial artery at its origin -Right lower extremity arterial duplex ultrasound showed severe obstructive PAD. No flow posterior tibial artery -05/17 foot XR showed no overt signs of osteomyelitis Rx: -Continue wound care as per wound care nurse -Follow up with vascular surgery in the outpatient setting RRx: -The cyanosis / discoloration of the phalanges on the right foot do not seem to have advanced or spread from yesterday, and have seemingly improved slightly; will continue to monitor #HFpEF [EF 50-55%] Dx: -05/10 TTE: Mild LVH. Estimated EF at 50-55%. There is grade I diastolic dysfunction. The RV size is mildly increased with normal systolic function. Huertas sign present. Rx: ?Continue Guideline-Directed Medical Therapy now that NG tube has been placed (though most evidence for mortality benefit and QOL improvement of GDMT is for HFrEF w/ EF<40%): 1. RAAS inhibitor: continue patient's home PO losartan 50 mg qD 2. Beta-eligio: continue patient's home PO carvedilol 6.25 mg BID 3. Mineralocorticoid receptor antagonist: patient does not seem to have a home medication of this drug class 4. SGLT-2 inhibitor: patient does not seem to have a home medication of this drug class #Atrial fibrillation?paroxysmal Dx: -From telemetry review patient is in sinus rhythm with rates between 80s?100s overnight ? [id number]: 9 points [12.2% stroke risk per year] Has bled 4 points [high risk of major bleeding] -Today, patient was noted to have some episodes of atrial fibrillation Rx: -Started PO apixaban 2.5 mg BID for anticoagulation -Continue PO amiodarone 200 mg qD PULM: #?Ventilator-associated pneumonia, new From 05/15 - 05/18, patient's WBC uptrended (7.7 -> 20.4 -> 28.7 -> 33.0) which was attributed to new RLL pneumonia seen on 05/18 CTA study WBC has now started downtrending beginning on 05/19 (33.0 -> 27.8 -> 21.5) as patient's suspected pneumonia has been treated with vancomycin and now linezolid DDx: atelectasis, aspiration pneumonia Dx: -05/18 CTA of abdominal aorta and iliofemoral runoff revealed fibrotic changes at the pleura of the lung bases suggestive of chronic interstitial lung disease as well as either atelectasis or new pneumonia at the RLL that, based on prior imaging that seems to have developed while the patient been in the ICU Rx: -Switched IV linezolid 600 mg q12HR to NG route (05/19--) -Discontinued IV vancomycin (05/17-05/19) RRx: -Patient's leukocytosis seems to be downtrending after using antibiotics to treat new suspected RLL pneumonia, suggesting that the initial leukocytosis may have been 2/2 this respiratory infection which had been resistant to patient's previous antibiotic regimen that was tailored for the CAP she presented with #Chronic interstitial lung disease w/ possible fibrosis DDx: idiopathic pulmonary fibrosis, medication adverse effect (amiodarone) Dx: -05/18 CTA of abdominal aorta and iliofemoral runoff revealed fibrotic changes at the pleura of the lung bases suggestive of chronic interstitial lung disease as well as either atelectasis or new pneumonia at the RLL that, based on prior imaging that seems to have developed while the patient been in the ICU Rx: -Continue respiratory support with BiPAP and supplemental oxygen RRx: -Patient continues to have labored, mouth breathing and remains on BiPAP today #Acute hypoxic respiratory failure secondary to community-acquired pneumonia, requiring intubation (resolved) Patient has recently completed 7-day course of IV cefepime 2 gm qD and 5-day course IV Zithromax 250 mg qD Dx: -05/18 CTA of abdominal aorta and iliofemoral runoff revealed fibrotic changes at the pleura of the lung bases suggestive of chronic interstitial lung disease as well as either atelectasis or new pneumonia at the RLL that, based on prior imaging that seems to have developed while the patient been in the ICU -05/10 MRSA Screen (+) -05/09 BCx both (-) -05/09 sputum culture grew pansensitive Streptococcus pneumoniae Renal: #KRYSTAL on CKD (improving) Patient's urine output today was 1500 mL (fluid balance: -980 mL) DDx: Prerenal KRYSTAL in setting of septic shock and likely ATN Dx: BUN 39 from 54 yesterday, CR 1.7 from 1.9 yesterday Rx: -Per nephrology recommendations, patient does not currently require HD RRx: -Follow-up on renal panel and monitor urine output. Endocrine #IDDM II Patient on 30 units of insulin glargine daily at home along with regular insulin Blood glucose today = 145 Rx: -Continue SC insulin degludec 20 units daily -Continue step 3 insulin correction scale RRx: -Monitor blood glucose and titrate insulin accordingly #Hx of Hypothyroidism Dx: TSH elevated at 6 with normal FT4 Rx: -Continue PO levothyroxine 75 mcg ACBR GI: #No active issues Heme: #Leukocytosis From 05/15 - 05/18, patient's WBC uptrended (7.7 -> 20.4 -> 28.7 -> 33.0) which was attributed to new RLL pneumonia seen on 05/18 CTA study WBC has now started downtrending beginning on 05/19 (33.0 -> 27.8 -> 21.5) as patient's suspected pneumonia has been treated with vancomycin and now linezolid DDx: VAP, aspiration pneumonia, cellulitis or osteomyelitis of R foot Dx: -05/18 CTA of abdominal aorta and iliofemoral runoff revealed fibrotic changes at the pleura of the lung bases suggestive of chronic interstitial lung disease as well as either atelectasis or new pneumonia at the RLL that, based on prior imaging that seems to have developed while the patient been in the ICU -05/17 foot XR was negative for signs of osteomyelitis -05/17 BCx's both show no growth after 48 hours -Per Rads, 05/16 CXR shows significant right lung pneumonia, being notably extensive in the RUL -05/15 UCx results pending -05/10 MRSA Screen (+) Rx: -Switched IV linezolid 600 mg q12HR to NG route (05/19--) -Discontinued IV vancomycin (05/17-05/19) RRx: -Patient's leukocytosis seems to be downtrending after using antibiotics to treat new suspected RLL pneumonia, suggesting that the initial leukocytosis may have been 2/2 this respiratory infection which had been resistant to patient's previous antibiotic regimen that was tailored for the CAP she presented with #Chronic normocytic anemia DDx: Anemia of chronic disease, CKD Dx: Hb 10.3 from 11.0 yesterday Rx: Continue to monitor CBC. ID: #Ventilator-associated pneumonia Dx: -See Respiratory section. Rx: -See Respiratory section. Skin: #Right foot bullae Developed likely as a result of patient's diabetic status and peripheral arterial disease leading to hypoperfusion of the lower extremities (especially on the R) DDx: cellulitis, dependent edema, severe PAD, osteomyelitis Dx: -05/18 CTA of abdominal aorta and iliofemoral runoff showed occlusion with possible thrombus in the right proximal common iliac artery, opacification of the more distal right common iliac artery, occlusion of the distal right superficial femoral artery, occlusion of the right popliteal artery with only trace filling of anterior tibial and right posterior tibial arteries, and occlusion of the left posterior tibial artery at its origin -On exam right foot appears discolored with absent DP and PT pulses -05/17 foot x-ray did not show any overt signs of osteomyelitis Rx: -Continue wound care as per wound care nurse -Follow up with vascular surgery in the outpatient setting RRx: -Seems to be improving ICU Health Maintenance: Dispo: BiPAP, receiving GT linezolid Diet: Nepro via NG Tube @ 10 mL/hr DVT ppx: PO Apixaban 2.5 mg BID GI ppx: IV Protonix 40mg qD Central line: Yes RIChet on 05/12- Arterial line: No Mena: Yes [05/10 - 05/20] Code status: DNR Plan of care discussed Dr. Sammie Butler, DO Internal Medicine, PGY-1
[2025-05-20] MEDS: ASCORBIC ACID 250 MG TABLET 500 MG PO ×2 (08:27→20:09)
[2025-05-20] MEDS: AMIODARONE HCL 200 MG TABLET PO (08:28)
[2025-05-20] MEDS: MULTIVITAMINS TABLET 1 TAB PO (08:28)
[2025-05-20] MEDS: ZINC SULFATE 220 MG CAPSULE PO (08:28)
[2025-05-20] MEDS: LOSARTAN POTASSIUM 25 MG TABLET 50 MG PO (08:28)
[2025-05-20] MEDS: BUMETANIDE INJ 0.25 MG/ML VIAL 4 ML 1 MG IVP (08:29)
[2025-05-20] MEDS: ESCITALOPRAM OXALATE 10 MG TABLET 20 MG PO (08:29)
[2025-05-20] MEDS: THIAMINE INJ 100 MG/ML VIAL 2 ML IVP (08:29)
[2025-05-20] MEDS: POTASSIUM CHL 10 mEq IVPB 10 MEQ/100 ML BAG 100 MEQ IV ×2 (08:30→09:50)
[2025-05-20] MEDS: INSULIN DEGLUDEC 5 UNIT/0.05 ML (PER 5 UNITS) 20 UNIT SC (08:30)
--- NOTE | 2025-05-20 08:43 | ESPR_ITS ---
Documentation for date of: 05/20/25 Subjective Subjective Interval history: Interval history: Patient is 80y/o F with PMH of HFpEF, A-fib on Eliquis, bradycardia s/p pacemaker placement in 2022, hypothyroidism,chronic back pain, IDDM II, and hypertension presented to the hospital due to worsening shortness of breathe. Per ICU note, no further history was obtained from the patient from EMS. Patient has been admitted to ICU for management of septic shock and acute hypoxic respiratory failure with community acquired pneumonia. Patient has been consulted to nephrology for management of KRYSTAL on CKD and possibility of hemodialysis. ED course: No further history obtained from EMS, at the ED patient's BP 75/50 with heart rate of 102 and temp 105.1, labs were pH 7.29 WBC 24, creatinine 2.2, lactate 6, troponin 45, BNP 2800, Pro-Jamshid 23, and TSH of 6. ABG pH 7.29 and pCO2 of 41. CXR showed significant right lobar pneumonia with UA noted for high WBC/RBC/epithelial cells. Head CT was negative for acute findings, patient was intubated, femoral central line along with femoral arterial line were placed in ED. Patient received 3L of LR boluses, received 1 dose of ceftriaxone and azithromycin and was started on Levophed along with dobutamine. PMH: Diabetes, HFpEF, A-fib, hypothyroidism, HTN, chronic back pain PSH: Cholecystectomy, 3 back surgeries SH: Does not drink or use illicit drugs. Smoked 1 pack a day for many years , quit 3 months ago. Allergies:?sulfa Medications: amiodarone, amlodipine, eliquis, atorvastatin, bupropion, escitalopram, gabapentin, hydromorphone, Lantus, levothyroxine, Reglan, pioglitazone, trazodone, montelukast. 05/11/2025: Patient unarousable and minimally interactive. BP: 108/58 Cr: 3.6, eGFR: 12, BUN:36 pH: 7.26, Urine Output: 20ml. Continue to monitor Urine output. If no improvement, then likely hemodialysis tomorrow. 05/12/2025: Labs reviewed and patient examined at the ICU. Patient is unarousable and unable to be questioned or interact with medical providers. BP: 84/66 Cr: 4.5, BUN:46, eGFR:9, pH: 7.23. Urine Output: 30ml. Patient will receive conventional Hemodialysis today for 3 hours. CRRT is not indicated at this time. will continue to montior renal function. 05/13/2025: Labs reviewed and patient examined at the ICU. Patient is still unarousable and unable to be questioned or interact with medical providers. BP: 136/67 Cr: 3.4, BUN:43, eGFR:13, pH: 7.32. Urine Output: 295ml. Patient's Creatinine is getting better. Will hold hemodialysis for today . Given Bumex 2mg x1 because of bilateral lower extremity swelling. 05/14/2025: Labs reviewed and patient examined at the ICU. Patient continues to be in unconscious state: BP:121/55 Cr: 3.4, BUN: 48, eGFR: 13, pH:7.38, Urine Output: 1.49L.Bicarb: 19.9. Patient is continuing to good urine, Creatinine is stable. No need for hemodialysis today. Patient has low bicarb likely due to diarrhea. Given bicitrate 30ml bid PO. Given Bumex 2mg IV x1. 05/15/2025: Labs reviewed and patient examined at the ICU. Patient continues to be in unconscious state. BP: 125/46, Cr: 3.2, BUN: 44, eGFR: 14. ABG pH: 7.41, Urine output: 990ml. Patient is continuing to good urine, Creatinine is stable. No need for hemodialysis. Continue to monitor renal function. 05/17/2025: patient currently seen in ICU. Extubated although unable to raise her hands due to significant critical illness polyneuropathy. Patient currently on BiPAP. Creatinine improving. Decreased p.o. intake-ICU team give IV fluids. Clinically patient looks rather hypervolemic. If no improvement in urine output we will do Bumex. Hold off on dialysis today. Labs/medications reviewed. Right IJ dialysis catheter could not be removed due to lack of venous access. 05/18/2025: Labs reviewed and patient examined at the ICU. Patient is arousable. Able to follow basic commends. Creatinine stable. Urine output: 1.3 L. Continue to monitor renal function. Bumex if needed. Cr: 1.9, BUN:52, eGFR:26 VBG pH: 7.49 05/19/2025: Labs reviewed and patient examined at the ICU. Patient is arousable. Able to follow basic commends. Creatinine stable. Urine output: 1.5 L. Dialysis not needed at this moment. Suggests removing dialysis catheter. Cr: 1.9, BUN:54, eGFR:26 VBG pH: 7.42. Patient received CTA with contrast yesterday. Will continue to monitor her symptoms. 05/20/2025: Labs reviewed and patient examined at the ICU. Patient can follow basic commends. Arousable. Patient discontinued vancomycin and replaced with lenezolid. Creatinine slightly decreased today. Urine output: 1.3L, Cr:1.7, BUN: 39, eGFR:30. No need for hemodialysis yet. Will continue to monitor her electrolytes. Exam Vital Signs Temp Pulse Resp BP Pulse Ox O2 Del Method O2 Flow Rate 97.4 F 95 7 L 148/78 H 99 Oxy Mask 5 05/20/25 00:00 05/20/25 08:29 05/20/25 06:01 05/20/25 08:29 05/20/25 06:01 05/19/25 04:01 05/19/25 06:24 FiO2 30 05/20/25 05:56 Narrative Exam General: Arousable. Eye: normal conjunctiva, no scleral icterus HENT: Normocephalic, atraumatic, moist oral mucosa Neck: Supple, non-tender, no JVD, no lymphadenopathy Lungs: Non-labored respirations, symmetric chest rise, Clear to auscultate bilaterally, No wheezing, rhonchi, crackles Heart: Peripheral pulses intact bilaterally, Regular Rate and Rhythm, No pitting edema of bilateral LEs. Abdomen: Soft, non-tender, non-distended, no palpable masses Musculoskeletal: No visible joint swelling, +1 bilateral lower extremity swelling. Skin: Skin is warm, dry, no lesions. Neuro:Cranial nerves II-XII grossly intact.Sensations intact to light touch. Objective Labs 05/21/25 04:30 05/21/25 04:30 Labs: Laboratory Results - last 24 hr 05/19/25 05/20/25 19:16 05:34 WBC 21.5 H D RBC 3.50 L Hgb 10.3 L Hct 32.2 L MCV 92 MCH 29.4 MCHC 32.0 RDW Std Deviation 49.8 H Plt Count 192 Neut % (Auto) 82 H Lymph % (Auto) 7 L [place] % (Auto) 4 Eos % (Auto) 1 Baso % (Auto) 0 Neut # (Auto) 17.7 H Lymph # (Auto) 1.6 [place] # (Auto) 0.8 Eos # (Auto) 0.2 Baso # (Auto) 0.1 Immature Gran # (Auto) 1.26 H Absolute Nucleated RBC 0.03 H Immature Gran % 6 H Nucleated RBC % 0 Sodium 144 144 Potassium 3.3 L D 3.6 Chloride 111 H 110 H Carbon Dioxide 24.6 24.3 Anion Gap 8 10 BUN 48 H 39 H Creatinine 1.7 H 1.7 H Estim Creat Clear Calc 33.1 L 33.1 L eGFR 30 L 30 L BUN/Creatinine Ratio 28 H 23 H Glucose 117 H 145 H Calculated Osmolality 300 H 299 H Calcium 8.0 L 8.1 L Corrected Calcium 8.8 8.9 Phosphorus 3.5 3.6 Magnesium 2.0 Total Bilirubin 0.3 AST 33 ALT 41 Alkaline Phosphatase 62 Total Protein 5.8 Albumin 3.0 L 3.0 L Globulin 2.8 Albumin/Globulin Ratio 1.1 L ABG Interpretation ABG results: 05/09/25 05/10/25 05/11/25 23:08 07:18 03:56 ABG pH 7.29 L 7.25 L 7.26 L ABG pCO2 41 49 H 41 ABG pO2 133 H 95 D 68 L D ABG HCO3 20 21 19 L ABG O2 Saturation 97 95 92 ABG Base Excess -7 L -6 L -8 L VBG pH VBG pCO2 VBG pO2 VBG Base Excess 05/12/25 05/13/25 05/14/25 04:09 04:02 04:18 ABG pH 7.23 L 7.32 L 7.38 ABG pCO2 44 43 34 ABG pO2 78 L 71 L 121 H D ABG HCO3 19 L 22 20 ABG O2 Saturation 94 92 97 ABG Base Excess -8 L -4 L -5 L VBG pH VBG pCO2 VBG pO2 VBG Base Excess 05/14/25 05/15/25 05/15/25 13:15 04:14 05:10 ABG pH 7.41 7.38 7.41 ABG pCO2 33 40 35 ABG pO2 113 H 48 L* D 89 D ABG HCO3 21 23 23 ABG O2 Saturation 98 82 L 98 ABG Base Excess -4 L -2 -2 VBG pH VBG pCO2 VBG pO2 VBG Base Excess 05/16/25 05/18/25 05/19/25 04:04 09:32 06:48 ABG pH 7.43 7.42 ABG pCO2 36 38 ABG pO2 84 74 L ABG HCO3 24 25 ABG O2 Saturation 96 93 ABG Base Excess 0 0 VBG pH 7.49 VBG pCO2 32 L VBG pO2 126 H VBG Base Excess 2 Quality Measures Quality Measures VTE prophylaxis, sepsis Current suspected stage: sepsis Possible source: pulmonary Blood cultures ordered: yes Antibiotic ordered: Yes and none Advance care planning discussed with:: patient Assessment & Plan Assessment Current Active Medications: Generic Name Dose Route Start Last Admin Trade Name Freq PRN Reason Stop Dose Admin Acetaminophen 650 mg 05/10/25 04:13 05/10/25 21:34 Acetaminophen 325 Mg Tablet PO 06/09/25 04:12 650 mg Q4HR PRN Administration PAIN SCALE 1-3 (mild Acetaminophen 650 mg 05/10/25 04:13 05/19/25 05:00 Acetaminophen Supp 650 Mg Supp SC 06/09/25 04:12 650 mg Q4HR PRN Administration PAIN SCALE 1-3 (mild Hydrocodone Bitart/Acetaminophen 1 tab 05/20/25 06:56 Hydrocodone/Apap 5/325 Tablet PO 05/25/25 06:55 Q6HR PRN PAIN SCALE 4-10(Mod-Sev Al Hydrox/Mg Hydrox/Simethicone 30 ml 05/10/25 04:13 Mg Hyd/Al Hyd/Jackeline (Maalox Reg) Susp 30 Ml Udc PO 06/09/25 04:12 Q4HR PRN Heartburn or Upset Stomach Albuterol/Ipratropium 3 ml 05/19/25 01:00 05/20/25 05:56 Albuterol/Ipratropium (Duoneb) Rt Suma 3 Ml Nebu INH 06/18/25 00:59 3 ml Q6HRRT YURY Administration Amiodarone HCl 200 mg 05/10/25 09:00 05/20/25 08:28 Amiodarone Hcl 200 Mg Tablet PO 06/09/25 08:59 200 mg QDAY YURY Administration Amlodipine Besylate 10 mg 05/19/25 13:15 05/20/25 08:27 Amlodipine Besylate 5 Mg Tablet PO 06/18/25 13:14 10 mg QDAY YURY Administration Artificial Tears 0 drop 05/13/25 14:52 05/16/25 23:58 Artificial Tears 225 Drop/15 Ml Btl BOTH EYES 06/12/25 14:51 2 drops PRN PRN Administration TO KEEP EYES MOIST Ascorbic Acid 500 mg 05/17/25 09:00 05/20/25 08:27 Ascorbic Acid 250 Mg Tablet PO 06/16/25 08:59 500 mg BID YURY Administration Atorvastatin Calcium 10 mg 05/19/25 21:00 05/19/25 21:46 Atorvastatin Calcium 10 Mg Tablet PO 06/18/25 20:59 10 mg HS YURY Administration Bupropion HCl 200 mg 05/19/25 13:15 05/20/25 08:27 Bupropion Hcl 100 Mg Tablet PO 06/18/25 13:14 200 mg BID YURY Administration Carvedilol 6.25 mg 05/20/25 09:00 05/20/25 08:27 Carvedilol 3.125 Mg Tablet PO 06/19/25 08:59 6.25 mg BID YURY Administration Dextrose 25 ml 05/10/25 04:27 Dextrose 50%-Water Inj 50 Ml Syringe IV 06/09/25 04:26 Q15MIN PRN BG 50-70 responsive npo pt Dextrose 50 ml 05/10/25 04:27 Dextrose 50%-Water Inj 50 Ml Syringe IV 06/09/25 04:26 Q15MIN PRN BG <50 OR BG <70 & pt unresponsive Escitalopram Oxalate 20 mg 05/10/25 09:00 05/20/25 08:29 Escitalopram Oxalate 10 Mg Tablet PO 06/09/25 08:59 20 mg QDAY YURY Administration Glucagon 1 mg 05/10/25 04:27 Glucagon Inj 1 Mg Vial IM Q15MIN PRN BG <70, and no IV access Heparin Sodium (Porcine) 5,000 unit 05/16/25 14:00 05/20/25 05:34 Heparin Sod Inj 5000 Unit/Ml Vial SC 05/30/25 13:59 5,000 unit Q8HR YURY Administration Heparin Sodium (Porcine) 2,600 unit 05/19/25 14:08 Heparin Sod Inj 1000 Unit/Ml Vial 10 Ml INDWELLCAT 06/02/25 14:07 PRN PRN DIALYSIS Hydralazine HCl 10 mg 05/18/25 19:24 Hydralazine Inj 20 Mg/Ml Vial IVP 06/15/25 16:01 Q4H PRN SBP>180 and HR <70 Hydromorphone HCl 0.25 mg 05/20/25 08:09 05/20/25 08:26 Hydromorphone Inj 2 Mg/Ml Vial IVP 05/25/25 08:08 0.25 mg Q4HR PRN Administration BREAKTHROUGH PAIN Potassium Chloride 10 meq in 100 mls @ 100 mls/hr 05/20/25 07:00 05/20/25 08:30 Kcl Ivpb IV 05/20/25 10:59 100 mls/hr Q1H YURY Administration Insulin Degludec 20 unit 05/17/25 09:00 05/20/25 08:30 Insulin Degludec 5 Unit/0.05 Ml (Per 5 Units) SC 06/16/25 08:59 20 unit QDAY YURY Administration Insulin Human Lispro 0 unit 05/15/25 12:00 05/20/25 08:15 Insulin Lispro (Admelog) 1 Unit/0.01 Ml Unit SC 06/09/25 11:59 Not Given Q6HR [facility] Protocol Labetalol HCl 10 mg 05/18/25 19:24 05/18/25 23:22 Labetalol Inj 5 Mg/Ml Vial 20 Ml IVP 10 mg Q10MIN PRN Administration Sbp > 180 and HR >70 Levothyroxine Sodium 75 mcg 05/20/25 13:15 Levothyroxine Sodium 25 Mcg Tablet PO 06/19/25 13:14 ACBR YURY Losartan Potassium 50 mg 05/16/25 13:30 05/20/25 08:28 Losartan Potassium 25 Mg Tablet PO 06/15/25 13:29 50 mg QDAY YURY Administration Magnesium Hydroxide 30 ml 05/10/25 04:13 Milk Of Magnesia Susp 30 Ml Udc PO 06/09/25 04:12 QDAY PRN CONSTIPATION Multivitamins 1 tab 05/17/25 09:00 05/20/25 08:28 Multivitamins Tablet PO 06/16/25 08:59 1 tab QDAY YURY Administration Pantoprazole Sodium 40 mg 05/10/25 11:00 05/20/25 08:29 Pantoprazole Inj 40 Mg Vial IVP 06/09/25 10:59 40 mg QDAY YURY Administration Pharmacy Consult 1 each 05/17/25 08:40 Pharmacy Renal Dose Adjustment 1 Ea XX 06/16/25 08:39 PRN PRN CONSULT Sodium Chloride 1 spray 05/17/25 07:35 Saline Nasal 45 Ml Btl NASAL 06/16/25 07:34 PRN PRN CONGESTION Thiamine HCl 100 mg 05/18/25 15:15 05/20/25 08:29 Thiamine Inj 100 Mg/Ml Vial 2 Ml IVP 06/17/25 15:14 100 mg QDAY YURY Administration Zinc Sulfate 220 mg 05/17/25 09:00 05/20/25 08:28 Zinc Sulfate 220 Mg Capsule PO 05/31/25 08:59 220 mg QDAY YURY Administration Plan Patient is 80y/o F with PMH of HFpEF, A-fib on Eliquis, bradycardia s/p pacemaker placement in 2022, hypothyroidism,chronic back pain, IDDM II, and hypertension presented to the hospital due to worsening shortness of breathe. Per ICU note, no further history was obtained from the patient from EMS. Patient has been admitted to ICU for management of septic shock and acute hypoxic respiratory failure with community acquired pneumonia. Patient has been consulted to nephrology for management of KRYSTAL on CKD and possibility of hemodialysis. #KRYSTAL-most likely related to ATN- underlying shock #Anemia -Upon admission, BUN: 20, Cr:2.2 (Baseline 1.3), eGFR: 22 -Patient has minimal edema, lungs clear, mucus membranes moist. -CXR (05/10/2025): Severe pneumonia right lung pneumonia noted -Currently, Urine output: 1.3L, Cr:1.7, BUN: 39, eGFR:30. Plan: -Patient is continuing to good urine, Creatinine is stable. No need for hemodialysis. -Will continue to monitor renal function. -Avoid nephrotoxins -Renally dose medication #Acute encephalopathy #Septic shock 2/2 CAP #HFpEF #NSTEMI likely type II #Atrial fibrillation #IDDM II #Hx of Hypothyroidism #Subclinical hypothyroidisim #Elevated T. bili #Leukocytosis #Community-acquired pneumonia - Management per ICU team Thank you for allowing us to participate in the care of your patient. Assessment and plan discussed with my attending physician Dr. Wes Melton (PGY-1)- Internal medicine resident Attending Provider Attestation/Addendum Patient seen and examined with resident physician Dr. Melton. Note reviewed, agree with findings and recommendations. Patient currently on BiPAP. Given a dose of diuretic patient's urine output seems to be better. KRYSTAL from ATN. Unable to remove dialysis catheter due to poor venous access. WBC tad better today. Mild elevation in creatinine from the contrast which was given on Monday. CTA runoff showed right arterial occlusion. No role for heparin.. Will monitor closely. Plan of care discussed with ICU team//Dr. Cochran. Goals of care discussed with family-requesting all aggressive measures including dialysis. Made her DNR. No need for dialysis.
[2025-05-20] MEDS: ONDANSETRON INJ 2 MG/ML INJ 2 ML 4 MG IVP ×2 (11:21→18:26)
[2025-05-20] MEDS: LINEZOLID 600 MG TABLET GT ×2 (11:21→20:09)
[2025-05-20] MEDS: POTASSIUM CHL 20 mEq IVPB 20 MEQ/100 ML BAG 50 MEQ IV (11:21)
[2025-05-20] MEDS: HYDROcodone/APAP 5/325 TABLET 1 TAB PO ×2 (13:24→20:09)
--- NOTE | 2025-05-20 13:49 | PC.PT ---
Addendum entered and electronically signed by Haydee Molina, PT 05/20/25 13:51: Nursing staff or family can do ROM to the patient prn or as tolerated. Original Note: Patient will be dc from PT services secondary to patient is at her PLOF.
--- NOTE | 2025-05-20 14:39 | PC.SS ---
Update: Patient on oxy mask 5L. NG tube in place for feedings. Patient receiving IV antibiotics. Afebrile. Patient not receiving pressor support. Patient following verbal commands.
[2025-05-20] MEDS: LEVOTHYROXINE SODIUM 25 MCG TABLET 75 MCG PO (15:11)
[2025-05-20] MEDS: APIXABAN 2.5 MG TABLET PO (16:24)
[2025-05-20] MEDS: ATORVASTATIN CALCIUM 10 MG TABLET PO (20:09)
[2025-05-21] VITALS (35 sets, daily range): BP systolic 133–161; BP diastolic 45–77; PULSE 60–76; RESP 2–24; TEMP 36.2–36.4; O2SAT 93–100
[2025-05-21] MEDS: HYDROmorphone INJ 2 MG/ML VIAL 0.25 MG IVP ×3 (01:25→14:33)
[2025-05-21] MEDS: ALBUTEROL/IPRATROPIUM (Duoneb) RT SOL 3 ML NEBU INH ×4 (01:58→18:12)
--- NOTE | 2025-05-21 02:40 | PC.RT ---
per dr brown to change bipap order from now to prn
[2025-05-21] MEDS: LEVOTHYROXINE SODIUM 25 MCG TABLET 75 MCG PO (05:08)
[2025-05-21] MEDS: INSULIN LISPRO (AdmeLOG) 1 UNIT/0.01 ML UNIT SC (05:12)
[2025-05-21 06:03] LABS: Basophils # (Auto) 0.0 Thou/mm3 (0.0-0.2); Basophils % (Auto) 0 % (0-2.5); Eosinophils # (Auto) 0.1 Thou/mm3 (0.0-0.5); Eosinophils % (Auto) 0 % (0-10); Hematocrit 27.7 % (36.0-46.0); Immature Granulocytes Auto 0.89 Thou/mm3 (0.00-0.00); Lymphocytes # (Auto) 1.5 Thou/mm3 (1.0-4.8); Lymphocytes % (Auto) 9 % (10-50); Mean Corpuscular HGB Conc 31.0 g/dl (31.0-37.0); Mean Corpuscular Hemoglobin 29.8 pg (25.0-35.0); Mean Corpuscular Volume 96 fL (80-100); Monocytes # (Auto) 0.7 Thou/mm3 (0.0-0.8); Monocytes % (Auto) 4 % (0-12); Neutrophils # (Auto) 14.7 Thou/mm3 (1.8-7.7); Neutrophils % (Auto) 82 % (37-80); Nucleated Red Blood Cell # 0.00 Thou/mm3 (0.00-0.00); Nucleated Red Blood Cell % 0 /100 WBC (0); Platelet Count 179 Thou/mm3 (140-440); RDW Standard Deviation 52.2 fL (36.4-46.3); Red Blood Count 2.89 Miln/mm3 (4.00-5.20); White Blood Count 18.0 Thou/mm3 (3.6-11.0)
[2025-05-21 06:05] LABS: Hemoglobin 8.6 g/dL (12.0-16.0)
[2025-05-21 06:22] LABS: Alanine Aminotransferase 31 U/L (10-49); Albumin, Serum 2.7 gm/dL (3.4-4.8); Albumin/Globulin Ratio 1.2 (1.2-2.2); Alkaline Phosphatase 56 U/L (46-116); Anion Gap 8 (7-16); Aspartate Amino Transferase 20 U/L (0-34); BUN/Creatinine Ratio 22 Ratio (12-20); Bilirubin,Total 0.3 mg/dL (0.3-1.2); Blood Urea Nitrogen 40 mg/dL (9-23); Calcium 7.9 mg/dL (8.3-10.6); Calcium (Corrected) 8.9 mg/dL (8.5-10.1); Carbon Dioxide 24.6 mMol/L (20.0-31.0); Chloride 111 mMol/L (98-107); Creatinine (Component) 1.8 mg/dL (0.6-1.3); Estimated Creatinine Clearance 31.8 mL/min (>60); Globulin 2.2 gm/dL (2.3-3.5); Glucose 150 mg/dL (74-106); Osmolality,Calculated 299 (275-295); Potassium 3.9 mMol/L (3.4-5.1); Sodium 144 mMol/L (136-145); Total Protein 4.9 gm/dL (5.7-8.2); eGFR 28 See Note
[2025-05-21 07:48] LABS: Magnesium 1.6 mg/dL (1.6-2.6); Phosphorous 3.9 mg/dL (2.4-5.1)
[2025-05-21] MEDS: LINEZOLID 600 MG TABLET GT ×2 (08:33→20:18)
[2025-05-21] MEDS: MULTIVITAMINS TABLET 1 TAB PO (08:33)
[2025-05-21] MEDS: ESCITALOPRAM OXALATE 10 MG TABLET 20 MG PO (08:33)
[2025-05-21] MEDS: ASCORBIC ACID 250 MG TABLET 500 MG PO ×2 (08:34→20:18)
[2025-05-21] MEDS: AMIODARONE HCL 200 MG TABLET PO (08:34)
[2025-05-21] MEDS: APIXABAN 2.5 MG TABLET PO ×2 (08:34→20:31)
[2025-05-21] MEDS: LOSARTAN POTASSIUM 25 MG TABLET 50 MG PO (08:34)
[2025-05-21] MEDS: ZINC SULFATE 220 MG CAPSULE PO (08:34)
[2025-05-21] MEDS: THIAMINE INJ 100 MG/ML VIAL 2 ML IVP (08:35)
[2025-05-21] MEDS: BUMETANIDE INJ 0.25 MG/ML VIAL 4 ML 1 MG IVP (08:36)
[2025-05-21] MEDS: INSULIN DEGLUDEC 5 UNIT/0.05 ML (PER 5 UNITS) 20 UNIT SC (08:37)
--- NOTE | 2025-05-21 09:56 | ESPR_ITS ---
Documentation for date of: 05/21/25 Subjective Subjective Interval history: Patient is 80y/o F with PMH of HFpEF, A-fib on Eliquis, bradycardia s/p pacemaker placement in 2022, hypothyroidism,chronic back pain, IDDM II, and hypertension presented to the hospital due to worsening shortness of breathe. Per ICU note, no further history was obtained from the patient from EMS. Patient has been admitted to ICU for management of septic shock and acute hypoxic respiratory failure with community acquired pneumonia. Patient has been consulted to nephrology for management of KRYSTAL on CKD and possibility of hemodialysis. ED course: No further history obtained from EMS, at the ED patient's BP 75/50 with heart rate of 102 and temp 105.1, labs were pH 7.29 WBC 24, creatinine 2.2, lactate 6, troponin 45, BNP 2800, Pro-Jamshid 23, and TSH of 6. ABG pH 7.29 and pCO2 of 41. CXR showed significant right lobar pneumonia with UA noted for high WBC/RBC/epithelial cells. Head CT was negative for acute findings, patient was intubated, femoral central line along with femoral arterial line were placed in ED. Patient received 3L of LR boluses, received 1 dose of ceftriaxone and azithromycin and was started on Levophed along with dobutamine. PMH: Diabetes, HFpEF, A-fib, hypothyroidism, HTN, chronic back pain PSH: Cholecystectomy, 3 back surgeries SH: Does not drink or use illicit drugs. Smoked 1 pack a day for many years , quit 3 months ago. Allergies:?sulfa Medications: amiodarone, amlodipine, eliquis, atorvastatin, bupropion, escitalopram, gabapentin, hydromorphone, Lantus, levothyroxine, Reglan, pioglitazone, trazodone, montelukast. 05/11/2025: Patient unarousable and minimally interactive. BP: 108/58 Cr: 3.6, eGFR: 12, BUN:36 pH: 7.26, Urine Output: 20ml. Continue to monitor Urine output. If no improvement, then likely hemodialysis tomorrow. 05/12/2025: Labs reviewed and patient examined at the ICU. Patient is unarousable and unable to be questioned or interact with medical providers. BP: 84/66 Cr: 4.5, BUN:46, eGFR:9, pH: 7.23. Urine Output: 30ml. Patient will receive conventional Hemodialysis today for 3 hours. CRRT is not indicated at this time. will continue to montior renal function. 05/13/2025: Labs reviewed and patient examined at the ICU. Patient is still unarousable and unable to be questioned or interact with medical providers. BP: 136/67 Cr: 3.4, BUN:43, eGFR:13, pH: 7.32. Urine Output: 295ml. Patient's Creatinine is getting better. Will hold hemodialysis for today . Given Bumex 2mg x1 because of bilateral lower extremity swelling. 05/14/2025: Labs reviewed and patient examined at the ICU. Patient continues to be in unconscious state: BP:121/55 Cr: 3.4, BUN: 48, eGFR: 13, pH:7.38, Urine Output: 1.49L.Bicarb: 19.9. Patient is continuing to good urine, Creatinine is stable. No need for hemodialysis today. Patient has low bicarb likely due to diarrhea. Given bicitrate 30ml bid PO. Given Bumex 2mg IV x1. 05/15/2025: Labs reviewed and patient examined at the ICU. Patient continues to be in unconscious state. BP: 125/46, Cr: 3.2, BUN: 44, eGFR: 14. ABG pH: 7.41, Urine output: 990ml. Patient is continuing to good urine, Creatinine is stable. No need for hemodialysis. Continue to monitor renal function. 05/17/2025: patient currently seen in ICU. Extubated although unable to raise her hands due to significant critical illness polyneuropathy. Patient currently on BiPAP. Creatinine improving. Decreased p.o. intake-ICU team give IV fluids. Clinically patient looks rather hypervolemic. If no improvement in urine output we will do Bumex. Hold off on dialysis today. Labs/medications reviewed. Right IJ dialysis catheter could not be removed due to lack of venous access. 05/18/2025: Labs reviewed and patient examined at the ICU. Patient is arousable. Able to follow basic commends. Creatinine stable. Urine output: 1.3 L. Continue to monitor renal function. Bumex if needed. Cr: 1.9, BUN:52, eGFR:26 VBG pH: 7.49 05/19/2025: Labs reviewed and patient examined at the ICU. Patient is arousable. Able to follow basic commends. Creatinine stable. Urine output: 1.5 L. Dialysis not needed at this moment. Suggests removing dialysis catheter. Cr: 1.9, BUN:54, eGFR:26 VBG pH: 7.42. Patient received CTA with contrast yesterday. Will continue to monitor her symptoms. 05/20/2025: Labs reviewed and patient examined at the ICU. Patient can follow basic commends. Arousable. Patient discontinued vancomycin and replaced with lenezolid. Creatinine slightly decreased today. Urine output: 1.3L, Cr:1.7, BUN: 39, eGFR:30. No need for hemodialysis yet. Will continue to monitor her electrolytes. 05/21/2025:Labs reviewed and patient examined at the ICU. Current plan remains unchanged. No need for hemodialysis. Continue to monitor renal function. 1 dose of Bumex 1mg IV given by ICU team. BUN: 40, Cr:1.8, eGFR:28, UoP: 1.3L Exam Vital Signs Temp Pulse Resp BP Pulse Ox O2 Del Method O2 Flow Rate 97.3 F 65 19 152/66 H 99 Nasal Cannula 1 05/21/25 08:01 05/21/25 08:36 05/21/25 08:01 05/21/25 08:36 05/21/25 08:01 05/21/25 08:01 05/21/25 06:40 FiO2 1 05/21/25 08:01 Narrative Exam General: Arousable. Eye: normal conjunctiva, no scleral icterus HENT: Normocephalic, atraumatic, moist oral mucosa Neck: Supple, non-tender, no JVD, no lymphadenopathy Lungs: symmetric chest rise, inspiratory stridor Heart: Peripheral pulses intact bilaterally, Regular Rate and Rhythm, No pitting edema of bilateral LEs. Abdomen: Soft, non-tender, non-distended, no palpable masses Musculoskeletal: No visible joint swelling, +1 bilateral lower extremity swelling. Skin: Blue discoloration and cold right feet. Neuro:Cranial nerves II-XII grossly intact.Sensations intact to light touch. Objective Labs 05/22/25 04:20 05/22/25 11:38 Labs: Laboratory Results - last 24 hr 05/21/25 04:30 WBC 18.0 H RBC 2.89 L Hgb 8.6 L Hct 27.7 L MCV 96 MCH 29.8 MCHC 31.0 RDW Std Deviation 52.2 H Plt Count 179 Neut % (Auto) 82 H Lymph % (Auto) 9 L [place] % (Auto) 4 Eos % (Auto) 0 Baso % (Auto) 0 Neut # (Auto) 14.7 H Lymph # (Auto) 1.5 [place] # (Auto) 0.7 Eos # (Auto) 0.1 Baso # (Auto) 0.0 Immature Gran # (Auto) 0.89 H Absolute Nucleated RBC 0.00 Immature Gran % 5 H Nucleated RBC % 0 Sodium 144 Potassium 3.9 Chloride 111 H Carbon Dioxide 24.6 Anion Gap 8 BUN 40 H Creatinine 1.8 H Estim Creat Clear Calc 31.8 L eGFR 28 L BUN/Creatinine Ratio 22 H Glucose 150 H Calculated Osmolality 299 H Calcium 7.9 L Corrected Calcium 8.9 Phosphorus 3.9 Magnesium 1.6 Total Bilirubin 0.3 AST 20 ALT 31 Alkaline Phosphatase 56 Total Protein 4.9 L Albumin 2.7 L Globulin 2.2 L Albumin/Globulin Ratio 1.2 ABG Interpretation ABG results: 05/09/25 05/10/25 05/11/25 23:08 07:18 03:56 ABG pH 7.29 L 7.25 L 7.26 L ABG pCO2 41 49 H 41 ABG pO2 133 H 95 D 68 L D ABG HCO3 20 21 19 L ABG O2 Saturation 97 95 92 ABG Base Excess -7 L -6 L -8 L VBG pH VBG pCO2 VBG pO2 VBG Base Excess 05/12/25 05/13/25 05/14/25 04:09 04:02 04:18 ABG pH 7.23 L 7.32 L 7.38 ABG pCO2 44 43 34 ABG pO2 78 L 71 L 121 H D ABG HCO3 19 L 22 20 ABG O2 Saturation 94 92 97 ABG Base Excess -8 L -4 L -5 L VBG pH VBG pCO2 VBG pO2 VBG Base Excess 05/14/25 05/15/25 05/15/25 13:15 04:14 05:10 ABG pH 7.41 7.38 7.41 ABG pCO2 33 40 35 ABG pO2 113 H 48 L* D 89 D ABG HCO3 21 23 23 ABG O2 Saturation 98 82 L 98 ABG Base Excess -4 L -2 -2 VBG pH VBG pCO2 VBG pO2 VBG Base Excess 05/16/25 05/18/25 05/19/25 04:04 09:32 06:48 ABG pH 7.43 7.42 ABG pCO2 36 38 ABG pO2 84 74 L ABG HCO3 24 25 ABG O2 Saturation 96 93 ABG Base Excess 0 0 VBG pH 7.49 VBG pCO2 32 L VBG pO2 126 H VBG Base Excess 2 Quality Measures Quality Measures VTE prophylaxis, sepsis Current suspected stage: sepsis Possible source: pulmonary Blood cultures ordered: yes Antibiotic ordered: Yes and none Advance care planning discussed with:: patient Assessment & Plan Assessment Current Active Medications: Generic Name Dose Route Start Last Admin Trade Name Freq PRN Reason Stop Dose Admin Acetaminophen 650 mg 05/10/25 04:13 05/10/25 21:34 Acetaminophen 325 Mg Tablet PO 06/09/25 04:12 650 mg Q4HR PRN Administration PAIN SCALE 1-3 (mild Acetaminophen 650 mg 05/10/25 04:13 05/19/25 05:00 Acetaminophen Supp 650 Mg Supp [place] 06/09/25 04:12 650 mg Q4HR PRN Administration PAIN SCALE 1-3 (mild Hydrocodone Bitart/Acetaminophen 1 tab 05/20/25 06:56 05/20/25 20:09 Hydrocodone/Apap 5/325 Tablet PO 05/25/25 06:55 1 tab Q6HR PRN Administration PAIN SCALE 4-10(Mod-Sev Al Hydrox/Mg Hydrox/Simethicone 30 ml 05/10/25 04:13 Mg Hyd/Al Hyd/Jackeline (Maalox Reg) Susp 30 Ml Udc PO 06/09/25 04:12 Q4HR PRN Heartburn or Upset Stomach Albuterol/Ipratropium 3 ml 05/19/25 01:00 05/21/25 06:40 Albuterol/Ipratropium (Duoneb) Rt Suma 3 Ml Nebu INH 06/18/25 00:59 3 ml Q6HRRT YURY Administration Amiodarone HCl 200 mg 05/10/25 09:00 05/21/25 08:34 Amiodarone Hcl 200 Mg Tablet PO 06/09/25 08:59 200 mg QDAY YURY Administration Amlodipine Besylate 10 mg 05/19/25 13:15 05/21/25 08:36 Amlodipine Besylate 5 Mg Tablet PO 06/18/25 13:14 10 mg QDAY YURY Administration Apixaban 2.5 mg 05/20/25 15:40 05/21/25 08:34 Apixaban 2.5 Mg Tablet PO 06/19/25 15:39 2.5 mg BID YURY Administration Artificial Tears 0 drop 05/13/25 14:52 05/16/25 23:58 Artificial Tears 225 Drop/15 Ml Btl BOTH EYES 06/12/25 14:51 2 drops PRN PRN Administration TO KEEP EYES MOIST Ascorbic Acid 500 mg 05/17/25 09:00 05/21/25 08:34 Ascorbic Acid 250 Mg Tablet PO 06/16/25 08:59 500 mg BID YURY Administration Atorvastatin Calcium 10 mg 05/19/25 21:00 05/20/25 20:09 Atorvastatin Calcium 10 Mg Tablet PO 06/18/25 20:59 10 mg HS YURY Administration Bupropion HCl 200 mg 05/19/25 13:15 05/21/25 08:33 Bupropion Hcl 100 Mg Tablet PO 06/18/25 13:14 200 mg BID YURY Administration Carvedilol 6.25 mg 05/20/25 09:00 05/21/25 08:35 Carvedilol 3.125 Mg Tablet PO 06/19/25 08:59 6.25 mg BID YURY Administration Dextrose 25 ml 05/10/25 04:27 Dextrose 50%-Water Inj 50 Ml Syringe IV 06/09/25 04:26 Q15MIN PRN BG 50-70 responsive npo pt Dextrose 50 ml 05/10/25 04:27 Dextrose 50%-Water Inj 50 Ml Syringe IV 06/09/25 04:26 Q15MIN PRN BG <50 OR BG <70 & pt unresponsive Escitalopram Oxalate 20 mg 05/10/25 09:00 05/21/25 08:33 Escitalopram Oxalate 10 Mg Tablet PO 06/09/25 08:59 20 mg QDAY YURY Administration Glucagon 1 mg 05/10/25 04:27 Glucagon Inj 1 Mg Vial IM Q15MIN PRN BG <70, and no IV access Heparin Sodium (Porcine) 2,600 unit 05/19/25 14:08 Heparin Sod Inj 1000 Unit/Ml Vial 10 Ml INDWELLCAT 06/02/25 14:07 PRN PRN DIALYSIS Hydralazine HCl 10 mg 05/18/25 19:24 Hydralazine Inj 20 Mg/Ml Vial IVP 06/15/25 16:01 Q4H PRN SBP>180 and HR <70 Hydromorphone HCl 0.25 mg 05/20/25 08:09 05/21/25 08:30 Hydromorphone Inj 2 Mg/Ml Vial IVP 05/25/25 08:08 0.25 mg Q4HR PRN Administration BREAKTHROUGH PAIN Insulin Degludec 20 unit 05/17/25 09:00 05/21/25 08:37 Insulin Degludec 5 Unit/0.05 Ml (Per 5 Units) SC 06/16/25 08:59 20 unit QDAY YURY Administration Insulin Human Lispro 0 unit 05/15/25 12:00 05/21/25 05:12 Insulin Lispro (Admelog) 1 Unit/0.01 Ml Unit SC 06/09/25 11:59 3 unit Q6HR YURY Administration Protocol Labetalol HCl 10 mg 05/18/25 19:24 05/18/25 23:22 Labetalol Inj 5 Mg/Ml Vial 20 Ml IVP 10 mg Q10MIN PRN Administration Sbp > 180 and HR >70 Levothyroxine Sodium 75 mcg 05/20/25 13:15 05/21/25 05:08 Levothyroxine Sodium 25 Mcg Tablet PO 06/19/25 13:14 75 mcg ACBR YURY Administration Linezolid 600 mg 05/20/25 11:30 05/21/25 08:33 Linezolid 600 Mg Tablet GT 05/27/25 11:29 600 mg BID YURY Administration Protocol Losartan Potassium 50 mg 05/16/25 13:30 05/21/25 08:34 Losartan Potassium 25 Mg Tablet PO 06/15/25 13:29 50 mg QDAY YURY Administration Magnesium Hydroxide 30 ml 05/10/25 04:13 Milk Of Magnesia Susp 30 Ml Udc PO 06/09/25 04:12 QDAY PRN CONSTIPATION Multivitamins 1 tab 05/17/25 09:00 05/21/25 08:33 Multivitamins Tablet PO 06/16/25 08:59 1 tab QDAY YURY Administration Ondansetron HCl 4 mg 05/20/25 10:57 05/20/25 18:26 Ondansetron Inj 2 Mg/Ml Inj 2 Ml IVP 06/19/25 10:56 4 mg Q6HR PRN Administration NAUSEA OR VOMITING Protocol Pantoprazole Sodium 40 mg 05/10/25 11:00 05/21/25 08:34 Pantoprazole Inj 40 Mg Vial IVP 06/09/25 10:59 40 mg QDAY YURY Administration Pharmacy Consult 1 each 05/17/25 08:40 Pharmacy Renal Dose Adjustment 1 Ea XX 06/16/25 08:39 PRN PRN CONSULT Sodium Chloride 1 spray 05/17/25 07:35 Saline Nasal 45 Ml Btl NASAL 06/16/25 07:34 PRN PRN CONGESTION Thiamine HCl 100 mg 05/18/25 15:15 05/21/25 08:35 Thiamine Inj 100 Mg/Ml Vial 2 Ml IVP 06/17/25 15:14 100 mg QDAY YURY Administration Zinc Sulfate 220 mg 05/17/25 09:00 05/21/25 08:34 Zinc Sulfate 220 Mg Capsule PO 05/31/25 08:59 220 mg QDAY YURY Administration Plan Patient is 80y/o F with PMH of HFpEF, A-fib on Eliquis, bradycardia s/p pacemaker placement in 2022, hypothyroidism,chronic back pain, IDDM II, and hypertension presented to the hospital due to worsening shortness of breathe. Per ICU note, no further history was obtained from the patient from EMS. Patient has been admitted to ICU for management of septic shock and acute hypoxic respiratory failure with community acquired pneumonia. Patient has been consulted to nephrology for management of KRYSTAL on CKD and possibility of hemodialysis. #KRYSTAL-most likely related to ATN- underlying shock #Anemia -Upon admission, BUN: 20, Cr:2.2 (Baseline 1.3), eGFR: 22 -Patient has minimal edema, lungs clear, mucus membranes moist. -CXR (05/10/2025): Severe pneumonia right lung pneumonia noted -Currently, BUN: 40, Cr:1.8, eGFR:28, UoP: 1.3L Plan: -Patient is continuing to good urine, Creatinine is stable. No need for hemodialysis. -Will continue to monitor renal function. -Avoid nephrotoxins -Renally dose medication #Acute encephalopathy #Septic shock 2/2 CAP #HFpEF #NSTEMI likely type II #Atrial fibrillation #IDDM II #Hx of Hypothyroidism #Subclinical hypothyroidisim #Elevated T. bili #Leukocytosis #Community-acquired pneumonia - Management per ICU team Thank you for allowing us to participate in the care of your patient. Assessment and plan discussed with my attending physician Dr. Wes Melton (PGY-1)- Internal medicine resident Attending Provider Attestation/Addendum Patient seen and examined with resident physician Dr. Melton. Note reviewed, agree with findings and recommendations. Patient currently on BiPAP. Given a dose of diuretic patient's urine output seems to be better. KRYSTAL from ATN. Unable to remove dialysis catheter due to poor venous access. WBC tad better today. Mild elevation in creatinine from the contrast which was given on Monday. CTA runoff showed right arterial occlusion. No role for heparin.. Will monitor closely. Plan of care discussed with ICU team//Dr. Cochran. Goals of care discussed with family- Made her DNR. Patient will be moved to telemetry.
--- NOTE | 2025-05-21 10:36 | ESPR_ITS ---
<Statement entered by Barry Cochran MD - 05/22/25 13:08> TOTAL TIME: 45MINUTES ON DIRECT MEDICAL CARE, MANAGEMENT - COORDINATION AND COUNSELING > 50% OF TOTAL TIME I saw and evaluated the patient. I reviewed the resident?s note and agree with findings and plan as documented in the resident?s note. Substantial improvement in respiratory effort. No longer has labored breathing and remains off noninvasive positive pressure ventilation with a respiratory rate in the high teens compared to the high 20s. Speaking with more words now and more easy to understand. Although remains generally weak has improved muscle strength compared to previously. White blood cell count is continuing to trend downwards nicely-complete linezolid x 7 days for suspected MRSA pneumonia. Remains DNR and DNI. Stable to transfer to the telemetry floor well we will see her again tomorrow <Statement entered by Jaren Eason MD - 05/21/25 15:49> I personally saw and examined the patient and supervised PGY 1 resident, Dr. Butler with formulating a management plan. I agree with his documentation with the exceptions as listed. Problem list: Critical illness weakness HFpEF [EF 50-55%] Atrial fibrillation?paroxysmal Severe lower extremity PAD Right foot bullae Primary hypertension Acute respiratory failure with hypoxia secondary to aspiration pneumonia?resolving KRYSTAL, likely secondary to ATN?resolving IDDM type II Hypothyroidism Leukocytosis?resolving Post extubation patient had significant output 1 trend of WBC from 7.5?>20?>20.8?>33. However she had no overt signs of fever, tachycardia, hypotension or other obvious source of infection. She had a CXR postextubation which did not show any new pulmonary infiltrates. There is a possibility of bacteremia with possible source being her right foot and blood cultures were redrawn on 05/17 which showed no bacterial growth x 1 day preliminary. CTA of lower extremities was completed and showed a occlusion of proximal right common iliac artery. Opacification of the more distal right common iliac artery. Occlusion of distal right superficial femoral, right popliteal and trace filling of anterior tibial and right posterior tibial arteries. Occlusion of left posterior tibial artery at its origin. Upon review of the images she was also noted to have significant right base consolidation and atelectasis. This was deemed to be her most likely source of infection and patient was started on vancomycin IV for 2 days and subsequently switched to linezolid 600 mg GT twice daily to complete on 05/27 as it is less nephrotoxic. WBC has downtrended to 18.1 today. An extensive goals of care discussion was had with patient's life partner, Daja and her granddaughter, Idalia at bedside. RN Dilshad was also present for the entirety of the discussion. Family members were informed of critical nature of patient's condition and high risk of deterioration and possible at any time. We explained that given patient's age, multiple comorbidities and the prolonged intubation. Prognosis is extremely poor. Currently she is day 2 postextubation and has between 0?1/5 power in all limbs and continues to fail swallow screen. Family was given the option of pursuing aggressive measures versus hospice/palliative care. Also brought up the patient's CODE STATUS and possibly changing to DNR/DNI. At this point in time after extensive counseling was given, the family agreed to switch patient to DNR. Prior to hospital discharge we strongly recommend primary team obtain hospice/palliative care consultation as patient explicitly expressed her desire to not return to the hospital if she decompensates. In her own words she expressed that she wishes to at home when the time comes. Patient continues to work daily with speech therapy but still has not passed the swallow screen. Currently has an NG tube in situ and receiving tube feeds at 20 cc/h with water flushes at 30 cc/h. Currently patient is on Bumex 1 mg IV daily for diuresis as she has a net positive fluid balance. If her kidney function begins to worsen we recommend that Bumex be held. The etiology may either be due to diuretic use or contrast- induced nephropathy due to CTA 3 days ago. Plan of care discussed with Attending Dr. Sammie Eason MD PGY 2 Disclaimer: This note was dictated by speech recognition. Minor errors in hand hose cutter may be present due to voice recognition software. Documentation for date of: 05/21/25 Subjective Subjective Interval history: 80 year-old female with PMHx noted for HFpEF, A-fib on , bradycardia s/p pacemaker placement in 2022, hypothyroidism,chronic back pain, IDDM II, and hypertension was brought in from home by ambulance for complaints of worsening shortness of breath. No further history obtained from EMS, at the ED patient's BP 75/50 with heart rate of 102 and temp 105.1, labs were pH 7.29 WBC 24, creatinine 2.2, lactate 6, troponin 45, BNP 2800, Pro-Jamshid 23, and TSH of 6. ABG pH 7.29 and pCO2 of 41. CXR showed significant right lobar pneumonia with UA noted for high WBC/RBC/epithelial cells. Head CT was negative for acute findings, patient was intubated, femoral central line along with femoral arterial line were placed in ED. Patient received 3L of LR boluses, received 1 dose of ceftriaxone and azithromycin and was started on Levophed along with dobutamine. Patient will be admitted to ICU for further management and care of septic shock along with acute hypoxic respiratory failure in setting of community-acquired pneumonia. Interval History 05/10/25: Patient was examined at bedside; she is currently intubated and chemically induced on fentanyl drip to maintain RASS score -2 for mechanical ventilation. Current plan is to continue IV NS maintenance @ 100 mL/hr, IV cefepime 2 gm qD (started 05/10 @ 09:00) and IV Zithromax 250 mg qD (started 05/10 @ 09:00) for treatment of her community-acquired pneumonia, follow up on sputum culture to guide antibiotic de-escalation, and continue PO Cordarone 200 mg qD and PO Eliquis 2.5 mg BID (both started 05/10 @ 09:00) for treatment of her atrial fibrillation. Of note, patient's endotracheal tube was somehow dislodged today and required readjustment via bronchoscope to return the tube to its proper position. Will continue to monitor patient as her pneumonia is treated (including the performance of daily awakening trials) with the hope that resolution of the infection will remove her state of septic shock and ongoing acute hypoxic respiratory failure (disposition condition requires successful weaning off of ventilatory support and pressors). 05/11/2025: Overnight patient was given magnesium sulfate 4 g IV x 1. Ventilator on AC MV, VT 400, RR 20, PEEP 5, FiO2 40%. On fentanyl infusion, RASS -2. Input 2976, output 20 cc, balance +2956 cc. Patient responsive to noxious stimuli but RASS appears closer to -3, will wean sedation. Labs showed NA 138, K4.1, bicarb 19.4, BUN 36, CR 3.6, Phos 5.5. ABG pH 7.26, pCO2 41. Blood and sputum cultures pending, sputum Gram stain grew 4 plus GPC preliminary. Currently on Levophed infusion, titrating as necessary. Today will give 500 cc normal saline IVF bolus for fluid challenge. If urine output does not improve, will consult nephrology for possible urgent hemodialysis. 05/12/2025: Overnight sedation was weaned, no other events. Input 1165, output 0 cc. Patient remains intubated and mechanically ventilated, RASS -2 on fentanyl and Precedex infusion. Labs showed Hb 9.7, WBC 15.9, BUN 46, CR 4.5. Right lower extremity arterial duplex showed severe right leg obstructive PAD. Today we will place temporary dialysis catheter and plan for low rate dialysis as per nephrology recommendations. 05/13/2025: No events overnight. Input 1306, output 4 5, balance +901 cc. This morning patient remains on Precedex infusion with a RASS of -1. Norepinephrine infusion was turned off overnight as well as fentanyl infusion. ABG showed pH 7.32, pCO2 43. Hb 9.4, PLT 79, K3.7, Mg 1.8, BUN 43, CR 3.4. Will continue with daily SAT's and give patient a break on pressure support for 2 hours today. No plans for extubation as yet as patient's neurological status is still unable to be assessed due to residual sedation. Bumex 2 Mg IV x 1 as per nephrology recommendations. HD will also be held today as per nephrology. 05/14/2025: Overnight patient was switched between volume control and spontaneous ventilation. Input 3120, output 1419, balance 1630. Patient remains on low- dose Precedex and following commands labs showed WBC 3, Hb 8.7, PLT 65, K3.2, bicarb 19 point, BUN 48, CR 3.4. KCl 40 mEq IV x 1, Bicitra 30 mL GT twice daily and Bumex 2 Mg IV x 1 given as per nephrology recommendation. No hemodialysis today 05/15/2025: Overnight patient's alternated between volume control and pressure support ventilation due to vent dyssynchrony. 2258 cc, output 990 cc, balance +1268 cc. This morning patient was on low-dose Precedex but responds to noxious stimuli. Blood glucose between 200?3 100s in past 24 hours. Labs showed Hb 8, PLT 81, NA 137, K3.6, HCO3 22.6, BUN 44, CR 3.2, Mg 1.8. Sputum culture grew strep pneumonia pansensitive to all tested antibiotics. Will continue to hold on hemodialysis as per nephrology recommendations and Bicitra for 1 more day. Repleted with KCl 20 mEq IV x 1, magnesium sulfate 2 g IV x 1 and de-escalated antibiotics to ceftriaxone 1 g IV daily. Increased insulin degludec to 18 units daily and switch to insulin correction scale 3. Will attempt SBT today after SAT. Also will remove femoral central line. 05/16/2025: No overnight events. Today, patient was given SBT again while sedated on low-dose Precedex (due to her history of agitation and distress while on sedation vacation) to assess her likelihood of being extubated successfully purely from a physiological standpoint (tidal volume generation, maintenance of stable respiratory rate, achievement of adequate oxygenation, etc.) with anxiety/agitation removed from the equation; SBT was passed successfully. Patient's Rapid Shallow Breathing Index (Tidal Volume / RR) was calculated to be 450/23 = 51 breaths/min/L, suggesting likely successful extubation due to being a good amount below generally accepted threshold of 105 breaths/min/L. Patient's diaphragmatic and accessory muscle strength were also assessed via Negative Inspiratory Force testing and her NIF was found to be more negative than -70 cm H2O, further supporting the likelihood of successful extubation due to being more negative than generally accepted threshold -30 cm H2O. There was also airflow heard around the endotracheal tube during cuff leak test suggesting no upper airway obstruction or edema. Due to these auspicious findings, the decision was made to extubate the patient which she seems to have been tolerating well. However, since being extubated, patient has been having hypertension with SBP sometimes surpassing 200 (but usually being in the 180s-190s) which has been refractory to IV labetalol 10 mg x2, IV tylenol (pain relief). Patient will be given IV fentanyl 25 mcg (to treat possible opiate withdrawal) and have IV hydralazine 10 mg q4HR prn for SBP>180 to see if these measures will ameliorate her significant hypertension. Her home antihypertensives will be restarted once patient can tolerate PO medications or have oral route access instated. Of note, patient has new leukocytosis with WBC elevation to 20.4 from 7.7 yesterday; her dialysis line may be the nidus of infection but removal was ultimately decided against due to it being her only route of central access. Repeat CXR was clear, lowering clinical suspicion for new pneumonia. From nephrology's standpoint, patient was noted to have made 1000 mL of urine and HD can be held until Monday at which point her need for HD will be reevaluated. 05/17/2025: Overnight patient had no events. Input 316 cc, output 550 cc, balance -253 cc. Patient examined in ICU this morning, complains of mild SOB and is mouth breathing. She is oriented x 3. Denies any chest pain/pressure, palpitations, confusion or nausea. On exam patient had inspiratory stridor. Labs showed Hb 10.8, WBC up trended to 28.7 from 20.4, K3.5, NA 142, BUN 47, CR 2.3, Mg 1.7, glucose 203. Patient on last day of a 7-day course of cefepime IV for aspiration pneumonia. D5/0.45% NS at 60 cc/h was started to avoid hyponatremia as patient is currently n.p.o. as she failed swallow evaluation, will reattempt tomorrow. Insulin degludec was increased to 20 units daily. Right foot x-rays were performed which did not show any signs of osteomyelitis. For her uptrending white cell count, etiology suspected to be VAP and a one-time dose of vancomycin IV was given. Repeat blood cultures were also ordered. Bedside ultrasound of left IJ was also performed, vessel appeared to be stenosed with possible obstruction as well. This may be due to her implantable cardiac pacemaker and multiple procedures in the past. If her RIJ temporary dialysis catheter is removed, venous access on the left IJ would not be attempted/possible due to distorted anatomy. Will attempt today to achieve peripheral IV access. Also attempts were made to contact her NOKMarleneDaja at [phone], but were unsuccessful. 05/18/2025: No overnight events. Patient examined at bedside; she is oriented x 3 and observed to be on Oxygen Mask with labored breathing noted. The inspiratory stridor patient had yesterday seems moderately improved. The cyanosis / discoloration of the phalanges on the right foot do not seem to have advanced or spread from yesterday but there was noted sloughing of skin with serous drainage from the hallux (with a curvilinear lesion atop the hallux creating a depressed contour) upon removal of the SCDs as well as some new dark patches along the calcaneus that extend across the medial-plantar surface of the right foot. Patient continues to fail swallow and speech evaluation making PO route access nonviable. After assessing the patient, dietitian recommended against PPN at this moment in time due to the poor ratio of nutrition to large volume of feeding in the setting of patient's HFpEF and her edematous state. He recommends that the patient be given another chance to pass the swallow and speech evaluation tomorrow before considering PPN or tube feeding. Concerningly, patient's WBC count has continued uptrending without a confirmed source of infection; today, it increased to 33.0 from 28.7. Goals of care were discussed with patient's partner Daja and granddaughter Idalia. The concern for possible infection due to her WBC elevation was brought up as well as the possibility that the infection could be at the right foot, infection of one of her lines, or possible ongoing pneumonia despite antibiotic treatment. It was explained, however, that patient may not be the best candidate for vascular surgical intervention due to the need for a lower extremity CTA with contrast which would risk damaging her slowly healing kidneys in the setting of recent KRYSTAL. Other topics discussed included the hesitancy to remove her HD catheter line (even if it is infected) due to it being our only central access point and patient's lack of other viable areas to establish central access as well as the idea of pursuing hospice care in an effort to minimize patient's suffering as the clinical utility of more aggressive measures may not be worth it in her weakened state. For now, the plan moving forward is to continue patient's IV vancomycin for suspected ongoing infection in hopes that this will address her current leukocytosis and improve her condition in her weakened state s/p prolonged intubation and sedation. 05/19/2025: Overnight, patient had to be put back on BiPAP due to continuing tachypnea and respiratory distress. Patient was examined at bedside; she remains somnolent, lethargic, and generally weak. Of note, patient's WBC downtrended to 27.8 from 33.0 and her VBG results were relatively benign. The decision was made today to switch vancomycin to linezolid due to both 9/13 blood cultures being negative and evidence on abdominal CTA of either atelectasis or new pneumonia at the RLL in the setting of chronic interstitial lung disease w/ fibrosis that, based on prior imaging, seems to have developed while she had been in the ICU. The same CTA also showed occlusions in many different areas of the lower extremity vasculature that will be discussed in the A&P. Today, patient had an NG tube placed so that she could be started on tube trickle feeding @ 10 mL/hr as well as have her home medications restarted including: PO amiodarone 200 mg qD (previously on IV amiodarone), PO amlodipine 10 mg qD, PO atorvastatin 10 mg qD, PO bupropion HCl 200 mg BID, PO carvedilol 3.125 mg qD, PO escitalopram oxalate 20 mg qD, PO levothyroxine 75 mcg qD (will be started tomorrow since patient already received an IV dose today), and PO losartan 50 mg qD. Another goals of care discussion was held today at patient's bedside around 3:15 PM with patient's partner Daja (decision-maker) and granddaughter Idalia. During this discussion, it was emphasized to the patient's loved ones that the care team's goal was aligned with theirs in doing what was ultimately best for the patient but that there remained a very real possibility of the patient rapidly deteriorating at any moment due to her currently fragile state of health. The topic of Code Status was brought up to Daja and Idalia and it was explained to them that, should the patient's current condition acutely decline, that aggressive interventions including intubation, chest compressions, and defibrillation would most likely be ineffective in saving the patient given her age and infirmity and would, in all probability, only cause the patient to needlessly suffer. It was also mentioned that, in the unlikely event in which patient did manage to pull through after such interventions, that she would almost certainly end up permanently intubated or live in a state with drastically decreased quality of life. After patients' loved one verbalized their understanding of the ramifications of what their Code Status choice would be, they were provided a form to sign by [employer] Manager indicating what decision they chose. 05/20/25: No overnight events. Patient continues to require BiPAP but seems to be improving both in mental status and neuromusculoskeletal function. The wounds on her right foot also seem to be improving. Today, patient's linezolid was switched from IV to GT, her p.o. carvedilol dosing was increased from 3.125 mg twice daily to 6.25 mg twice daily, and she was given a one-time dose of IV Bumex 1 mg. Auspiciously, patient's leukocytosis has downtrended again (from 33.0 two days ago to 27.8 yesterday to 21.5 today) and her creatinine improved to 1.7 from 1.9 yesterday. Current plan remains unchanged and patient will continue on her antibiotic regimen for suspected right lower lobe pneumonia seen on CT imaging. 05/21/25: No overnight events. Patient continues to improve in mental status and shows complete awareness of this gag writer and attempts to answer questions; however, her voice is very faint and soft so it is difficult to hear her. She is still exhibiting labored, mouth-breathing but her respiratory status also seems improved as she is now on 1 L nasal cannula instead of BiPAP. With regards to the wounds on her right foot, there seems to be slight improvement without further spread from yesterday. Patient's WBC has also continued to downtrend for the third day in a row (18.0 from 21.5 yesterday), suggesting that her current antibiotic regimen of NG linezolid 600 mg qD has been efficacious in treating whatever etiology had caused her initially unexplained leukocytosis (currently attributed to new ventilator-associated pneumonia at the RLL seen on imaging). Patient's kidney function has remained relatively stable at 1.8 (from 1.7 yesterday). Of note, patient's Hgb did drop to 8.6 from 10.3 yesterday right after she was started on NG Eliquis 2.5 mg BID but no active bleeding has been observed thus far. At this time, patient appears stabilized enough to no longer require ICU care and will be downgraded to floors today for further management. It is recommended that she keep her dialysis catheter due to her likely requiring HD in the future alongside the fact that obtaining IV access on her has been very difficult. Ultimate goal is to discharge her to a SNF (with linezolid should she still not have completed her 14 day regimen) and avoiding drugs requiring IV access for the foreseeable future. Other important things to mention are that patient's respiratory status have significantly improved between 05/20-05/21, that patient was started on diuretics and that any creatinine bumps that may occur in the near future may have been contrast-induced due to her recent imaging studies, and that it is very important that patient have hospice goals of care discussion before she is discharged (patient has voiced being traumatized by ICU experience and verbalized that she would not want to return should her condition deteriorate again but would rather pass peacefully in comfort at home/SNF). Exam Vital Signs Temp Pulse Resp BP Pulse Ox O2 Del Method O2 Flow Rate 97.3 F 65 19 152/66 H 99 Nasal Cannula 1 05/21/25 08:01 05/21/25 08:36 05/21/25 08:01 05/21/25 08:36 05/21/25 08:01 05/21/25 08:01 05/21/25 06:40 FiO2 1 05/21/25 08:01 Narrative Exam Constitutional Morbidly obese, elderly female. HEENT Normocephalic, atraumatic. PERRL. EOMI. Patent nares. Trachea midline Respiratory On 1 L nasal cannula. Reduced air entry at bases. Mouth breathing observed. Right IJ temp dialysis catheter noted. Exit site clean. Cardiovascular S1 and S2 audible, RRR. No murmurs carotid bruit. No gross JVD. Abdominal Soft, obese and non tender to palpation in all quadrants. BS +. Genitourinary No bladder tenderness, no flank pain. Normal to palpation Musculoskeletal Extremities tone within normal limits. Neurological Difficult to assess A&O status due to inability to hear her. Power 2/5 in upper extremities and 1/5 in lower extremities (improved from yesterday) Skin Bluish discoloration of great toe, 2nd, 3rd and 4th toes on right foot. Ulcerated lesion on hallux. Dark patches along the calcaneus that extend across the medial-plantar surface of the right foot. Absent dorsalis pedis and posterior tibial pulse on right leg. Cold extremities (right colder than left). Objective Labs 05/21/25 04:30 05/21/25 04:30 Labs: Laboratory Results - last 24 hr 05/21/25 04:30 WBC 18.0 H RBC 2.89 L Hgb 8.6 L Hct 27.7 L MCV 96 MCH 29.8 MCHC 31.0 RDW Std Deviation 52.2 H Plt Count 179 Neut % (Auto) 82 H Lymph % (Auto) 9 L [place] % (Auto) 4 Eos % (Auto) 0 Baso % (Auto) 0 Neut # (Auto) 14.7 H Lymph # (Auto) 1.5 [place] # (Auto) 0.7 Eos # (Auto) 0.1 Baso # (Auto) 0.0 Immature Gran # (Auto) 0.89 H Absolute Nucleated RBC 0.00 Immature Gran % 5 H Nucleated RBC % 0 Sodium 144 Potassium 3.9 Chloride 111 H Carbon Dioxide 24.6 Anion Gap 8 BUN 40 H Creatinine 1.8 H Estim Creat Clear Calc 31.8 L eGFR 28 L BUN/Creatinine Ratio 22 H Glucose 150 H Calculated Osmolality 299 H Calcium 7.9 L Corrected Calcium 8.9 Phosphorus 3.9 Magnesium 1.6 Total Bilirubin 0.3 AST 20 ALT 31 Alkaline Phosphatase 56 Total Protein 4.9 L Albumin 2.7 L Globulin 2.2 L Albumin/Globulin Ratio 1.2 ABG Interpretation ABG results: 05/09/25 05/10/25 05/11/25 23:08 07:18 03:56 ABG pH 7.29 L 7.25 L 7.26 L ABG pCO2 41 49 H 41 ABG pO2 133 H 95 D 68 L D ABG HCO3 20 21 19 L ABG O2 Saturation 97 95 92 ABG Base Excess -7 L -6 L -8 L VBG pH VBG pCO2 VBG pO2 VBG Base Excess 05/12/25 05/13/25 05/14/25 04:09 04:02 04:18 ABG pH 7.23 L 7.32 L 7.38 ABG pCO2 44 43 34 ABG pO2 78 L 71 L 121 H D ABG HCO3 19 L 22 20 ABG O2 Saturation 94 92 97 ABG Base Excess -8 L -4 L -5 L VBG pH VBG pCO2 VBG pO2 VBG Base Excess 05/14/25 05/15/25 05/15/25 13:15 04:14 05:10 ABG pH 7.41 7.38 7.41 ABG pCO2 33 40 35 ABG pO2 113 H 48 L* D 89 D ABG HCO3 21 23 23 ABG O2 Saturation 98 82 L 98 ABG Base Excess -4 L -2 -2 VBG pH VBG pCO2 VBG pO2 VBG Base Excess 05/16/25 05/18/25 05/19/25 04:04 09:32 06:48 ABG pH 7.43 7.42 ABG pCO2 36 38 ABG pO2 84 74 L ABG HCO3 24 25 ABG O2 Saturation 96 93 ABG Base Excess 0 0 VBG pH 7.49 VBG pCO2 32 L VBG pO2 126 H VBG Base Excess 2 Quality Measures Quality Measures VTE prophylaxis, sepsis Current suspected stage: ruled out Possible source: pulmonary Blood cultures ordered: yes Antibiotic ordered: Yes and none Advance care planning discussed with:: significant other (Daja (decision- maker)) and other (ginette Friedman) Assessment & Plan Assessment Current Active Medications: Generic Name Dose Route Start Last Admin Trade Name Freq PRN Reason Stop Dose Admin Acetaminophen 650 mg 05/10/25 04:13 05/10/25 21:34 Acetaminophen 325 Mg Tablet PO 06/09/25 04:12 650 mg Q4HR PRN Administration PAIN SCALE 1-3 (mild Acetaminophen 650 mg 05/10/25 04:13 05/19/25 05:00 Acetaminophen Supp 650 Mg Supp [place] 06/09/25 04:12 650 mg Q4HR PRN Administration PAIN SCALE 1-3 (mild Hydrocodone Bitart/Acetaminophen 1 tab 05/20/25 06:56 05/20/25 20:09 Hydrocodone/Apap 5/325 Tablet PO 05/25/25 06:55 1 tab Q6HR PRN Administration PAIN SCALE 4-10(Mod-Sev Al Hydrox/Mg Hydrox/Simethicone 30 ml 05/10/25 04:13 Mg Hyd/Al Hyd/Jackeline (Maalox Reg) Susp 30 Ml Udc PO 06/09/25 04:12 Q4HR PRN Heartburn or Upset Stomach Albuterol/Ipratropium 3 ml 05/19/25 01:00 05/21/25 06:40 Albuterol/Ipratropium (Duoneb) Rt Suma 3 Ml Nebu INH 06/18/25 00:59 3 ml Q6HRRT YURY Administration Amiodarone HCl 200 mg 05/10/25 09:00 05/21/25 08:34 Amiodarone Hcl 200 Mg Tablet PO 06/09/25 08:59 200 mg QDAY YURY Administration Amlodipine Besylate 10 mg 05/19/25 13:15 05/21/25 08:36 Amlodipine Besylate 5 Mg Tablet PO 06/18/25 13:14 10 mg QDAY YURY Administration Apixaban 2.5 mg 05/20/25 15:40 05/21/25 08:34 Apixaban 2.5 Mg Tablet PO 06/19/25 15:39 2.5 mg BID YURY Administration Artificial Tears 0 drop 05/13/25 14:52 05/16/25 23:58 Artificial Tears 225 Drop/15 Ml Btl BOTH EYES 06/12/25 14:51 2 drops PRN PRN Administration TO KEEP EYES MOIST Ascorbic Acid 500 mg 05/17/25 09:00 05/21/25 08:34 Ascorbic Acid 250 Mg Tablet PO 06/16/25 08:59 500 mg BID YURY Administration Atorvastatin Calcium 10 mg 05/19/25 21:00 05/20/25 20:09 Atorvastatin Calcium 10 Mg Tablet PO 06/18/25 20:59 10 mg HS YURY Administration Bupropion HCl 200 mg 05/19/25 13:15 05/21/25 08:33 Bupropion Hcl 100 Mg Tablet PO 06/18/25 13:14 200 mg BID YURY Administration Carvedilol 6.25 mg 05/20/25 09:00 05/21/25 08:35 Carvedilol 3.125 Mg Tablet PO 06/19/25 08:59 6.25 mg BID YURY Administration Dextrose 25 ml 05/10/25 04:27 Dextrose 50%-Water Inj 50 Ml Syringe IV 06/09/25 04:26 Q15MIN PRN BG 50-70 responsive npo pt Dextrose 50 ml 05/10/25 04:27 Dextrose 50%-Water Inj 50 Ml Syringe IV 06/09/25 04:26 Q15MIN PRN BG <50 OR BG <70 & pt unresponsive Escitalopram Oxalate 20 mg 05/10/25 09:00 05/21/25 08:33 Escitalopram Oxalate 10 Mg Tablet PO 06/09/25 08:59 20 mg QDAY YURY Administration Glucagon 1 mg 05/10/25 04:27 Glucagon Inj 1 Mg Vial IM Q15MIN PRN BG <70, and no IV access Heparin Sodium (Porcine) 2,600 unit 05/19/25 14:08 Heparin Sod Inj 1000 Unit/Ml Vial 10 Ml INDWELLCAT 06/02/25 14:07 PRN PRN DIALYSIS Hydralazine HCl 10 mg 05/18/25 19:24 Hydralazine Inj 20 Mg/Ml Vial IVP 06/15/25 16:01 Q4H PRN SBP>180 and HR <70 Hydromorphone HCl 0.25 mg 05/20/25 08:09 05/21/25 08:30 Hydromorphone Inj 2 Mg/Ml Vial IVP 05/25/25 08:08 0.25 mg Q4HR PRN Administration BREAKTHROUGH PAIN Insulin Degludec 20 unit 05/17/25 09:00 05/21/25 08:37 Insulin Degludec 5 Unit/0.05 Ml (Per 5 Units) SC 06/16/25 08:59 20 unit QDAY YURY Administration Insulin Human Lispro 0 unit 05/15/25 12:00 05/21/25 05:12 Insulin Lispro (Admelog) 1 Unit/0.01 Ml Unit SC 06/09/25 11:59 3 unit Q6HR YURY Administration Protocol Labetalol HCl 10 mg 05/18/25 19:24 05/18/25 23:22 Labetalol Inj 5 Mg/Ml Vial 20 Ml IVP 10 mg Q10MIN PRN Administration Sbp > 180 and HR >70 Levothyroxine Sodium 75 mcg 05/20/25 13:15 05/21/25 05:08 Levothyroxine Sodium 25 Mcg Tablet PO 06/19/25 13:14 75 mcg ACBR YURY Administration Linezolid 600 mg 05/20/25 11:30 05/21/25 08:33 Linezolid 600 Mg Tablet GT 05/27/25 11:29 600 mg BID YURY Administration Protocol Losartan Potassium 50 mg 05/16/25 13:30 05/21/25 08:34 Losartan Potassium 25 Mg Tablet PO 06/15/25 13:29 50 mg QDAY YURY Administration Magnesium Hydroxide 30 ml 05/10/25 04:13 Milk Of Magnesia Susp 30 Ml Udc PO 06/09/25 04:12 QDAY PRN CONSTIPATION Multivitamins 1 tab 05/17/25 09:00 05/21/25 08:33 Multivitamins Tablet PO 06/16/25 08:59 1 tab QDAY YURY Administration Ondansetron HCl 4 mg 05/20/25 10:57 09/16/25 18:26 Ondansetron Inj 2 Mg/Ml Inj 2 Ml IVP 06/19/25 10:56 4 mg Q6HR PRN Administration NAUSEA OR VOMITING Protocol Pantoprazole Sodium 40 mg 05/10/25 11:00 05/21/25 08:34 Pantoprazole Inj 40 Mg Vial IVP 06/09/25 10:59 40 mg QDAY YURY Administration Pharmacy Consult 1 each 05/17/25 08:40 Pharmacy Renal Dose Adjustment 1 Ea XX 06/16/25 08:39 PRN PRN CONSULT Sodium Chloride 1 spray 05/17/25 07:35 Saline Nasal 45 Ml Btl NASAL 06/16/25 07:34 PRN PRN CONGESTION Thiamine HCl 100 mg 05/18/25 15:15 05/21/25 08:35 Thiamine Inj 100 Mg/Ml Vial 2 Ml IVP 06/17/25 15:14 100 mg QDAY YURY Administration Zinc Sulfate 220 mg 05/17/25 09:00 05/21/25 08:34 Zinc Sulfate 220 Mg Capsule PO 05/31/25 08:59 220 mg QDAY YURY Administration Plan 80 year-old female with PMHx noted for HFpEF, A-fib on Eliquis, bradycardia s/p pacemaker placement in 2022, hypothyroidism,chronic back pain, IDDM II, and hypertension admitted to ICU for further management and care of septic shock along with acute hypoxic respiratory failure in setting of community-acquired pneumonia. No overnight events. Patient continues to improve in mental status and shows complete awareness of this gag writer and attempts to answer questions; however, her voice is very faint and soft so it is difficult to hear her. She is still exhibiting labored, mouth-breathing but her respiratory status also seems improved as she is now on 1 L nasal cannula instead of BiPAP. With regards to the wounds on her right foot, there seems to be slight improvement without further spread from yesterday. Patient's WBC has also continued to downtrend for the third day in a row (18.0 from 21.5 yesterday), suggesting that her current antibiotic regimen of NG linezolid 600 mg qD has been efficacious in treating whatever etiology had caused her initially unexplained leukocytosis (currently attributed to new ventilator-associated pneumonia at the RLL seen on imaging). Patient's kidney function has remained relatively stable at 1.8 (from 1.7 yesterday). Of note, patient's Hgb did drop to 8.6 from 10.3 yesterday right after she was started on NG Eliquis 2.5 mg BID but no active bleeding has been observed thus far. At this time, patient appears stabilized enough to no longer require ICU care and will be downgraded to floors today for further management. It is recommended that she keep her dialysis catheter due to her likely requiring HD in the future alongside the fact that obtaining IV access on her has been very difficult. Ultimate goal is to discharge her to a SNF (with linezolid should she still not have completed her 14 day regimen) and avoiding drugs requiring IV access for the foreseeable future. Other important things to mention are that patient's respiratory status have significantly improved between 05/20-05/21, that patient was started on diuretics and that any creatinine bumps that may occur in the near future should be considered in the setting of recent contrast-using imaging studies, and that it is very important that patient have hospice goals of care discussion before she is discharged (patient has voiced being traumatized by ICU experience and verbalized that she would not want to return should her condition deteriorate again but would rather pass peacefully in comfort at home/SNF). Neuro: #Encephalopathy s/p extubation and prolonged sedation (improving) Patient was successfully extubated in the late morning of 05/16 after being intubated and sedated for more than 6 days (with daily SATs and SBTs when appropriate) Upon assessing patient around 6-8 hours s/p extubation, patient was awake with eyes open but did not make eye contact with or verbally respond to this gag writer when her name was called and did not follow commands (but did move her head in response to noise stimuli) Later in the night (05/16, 18:50), patient began making eye contact and following commands According to patient's partner, patient does not have baseline dementia DDx: critical illness-associated cerebral dysfunction, prolonged sedation- related encephalopathy Dx: -Today, patient appears more awake and improved in general with regards to mental status Rx: -Continue to monitor as patient's mental status is expected to improve with time RRx: -Although patient's return to mental baseline seems to be progressing slowly, this outcome is somewhat expected due to her advanced age, multiple risk factors, ongoing leukocytosis, prolonged period of intubation and sedation, and lung disease. #Intensive care unit - acquired weakness (ICUAW) Due to patient's ICU status, difficulty weaning from the ventilator, presentation of diffuse, symmetrical limb weakness, and lack of other clear cause for neuromuscular dysfunction (e.g., stroke, spinal cord injury), the likely working diagnosis is ICUAW Dx: -Patient remains very weak with 2/5 power in upper extremities and 1/5 power in lower extremities but this still seems improved from yesterday Rx: -Asked PT to demonstrate exercises to both nurses as well as patients' loved ones that can help improve patient's passive range of motion as well as her general mobility and function -Stressed the importance of getting patient to move and regain muscle function to patients' loved ones (occurred during goals of care discussion) -Continue having patient work with PT in regaining mobility and function RRx: -PT has been working with patient and, although progressing slowly, she seems to be regaining mobility and function little by little as time passes Cardio: #Hypertension DDx: primary hypertension, 2/2 CKD, 2/2 renal artery stenosis Dx: -05/18 CTA of abdominal aorta and iliofemoral runoff showed atretic renal arteries Rx: -Continue patient's home antihypertensives: PO amlodipine 10 mg qD, PO losartan 50 mg qD, PO carvedilol 6.25 mg BID RRx: -Patient's blood pressures have markedly improved from before her home antihypertensive regimen was started #Peripheral arterial disease Patient noted to have reduced pulses on right leg. Toes on right foot appear blue The cyanosis/discoloration of right foot seems to be slowly progressing during this hospital admission Today, wounds seem a bit improved Dx: -05/18 CTA of abdominal aorta and iliofemoral runoff showed occlusion with possible thrombus in the right proximal common iliac artery, opacification of the more distal right common iliac artery, occlusion of the distal right superficial femoral artery, occlusion of the right popliteal artery with only trace filling of anterior tibial and right posterior tibial arteries, and occlusion of the left posterior tibial artery at its origin -Right lower extremity arterial duplex ultrasound showed severe obstructive PAD. No flow posterior tibial artery -05/17 foot XR showed no overt signs of osteomyelitis Rx: -Continue wound care as per wound care nurse -Follow up with vascular surgery in the outpatient setting RRx: -The cyanosis / discoloration of the phalanges on the right foot do not seem to have advanced or spread from yesterday, and have seemingly improved slightly; will continue to monitor #HFpEF [EF 50-55%] Dx: -05/10 TTE: Mild LVH. Estimated EF at 50-55%. There is grade I diastolic dysfunction. The RV size is mildly increased with normal systolic function. Huertas sign present. Rx: ?Continue Guideline-Directed Medical Therapy now that NG tube has been placed (though most evidence for mortality benefit and QOL improvement of GDMT is for HFrEF w/ EF<40%): 1. RAAS inhibitor: continue patient's home PO losartan 50 mg qD 2. Beta-eligio: continue patient's home PO carvedilol 6.25 mg BID 3. Mineralocorticoid receptor antagonist: patient does not seem to have a home medication of this drug class 4. SGLT-2 inhibitor: patient does not seem to have a home medication of this drug class #Atrial fibrillation?paroxysmal Dx: -From telemetry review patient is in sinus rhythm with rates between 80s?100s overnight ? [id number]: 9 points [12.2% stroke risk per year] Has bled 4 points [high risk of major bleeding] -Yesterday (05/20), patient was noted to have atrial fibrillation which later converted to sinus rhythm and has remained stable since Rx: -Continue PO apixaban 2.5 mg BID for anticoagulation -Continue PO amiodarone 200 mg qD PULM: #?Ventilator-associated pneumonia, new From 05/15 - 05/18, patient's WBC uptrended (7.7 -> 20.4 -> 28.7 -> 33.0) which was attributed to new RLL pneumonia seen on 05/18 CTA study WBC has now started downtrending beginning on 05/19 (33.0 -> 27.8 -> 21.5 -> 18.0) as patient's suspected pneumonia has been treated with vancomycin and now linezolid DDx: atelectasis, aspiration pneumonia Dx: -05/18 CTA of abdominal aorta and iliofemoral runoff revealed fibrotic changes at the pleura of the lung bases suggestive of chronic interstitial lung disease as well as either atelectasis or new pneumonia at the RLL that, based on prior imaging that seems to have developed while the patient been in the ICU Rx: -Continue NG linezolid 600 mg q12HR (05/19--) -Discontinued IV vancomycin (05/17-05/19) RRx: -Patient's leukocytosis seems to be downtrending after using antibiotics to treat new suspected RLL pneumonia, suggesting that the initial leukocytosis may have been 2/2 this respiratory infection which had been resistant to patient's previous antibiotic regimen that was tailored for the CAP she presented with #Chronic interstitial lung disease w/ possible fibrosis DDx: idiopathic pulmonary fibrosis, medication adverse effect (amiodarone) Dx: -05/18 CTA of abdominal aorta and iliofemoral runoff revealed fibrotic changes at the pleura of the lung bases suggestive of chronic interstitial lung disease as well as either atelectasis or new pneumonia at the RLL that, based on prior imaging that seems to have developed while the patient been in the ICU Rx: -Continue respiratory support and supplemental oxygen RRx: -Patient continues to have labored, mouth breathing but now only requires 1 L nasal cannula for support as opposed to BiPAP yesterday #Acute hypoxic respiratory failure secondary to community-acquired pneumonia, requiring intubation (resolved) Patient has recently completed 7-day course of IV cefepime 2 gm qD and 5-day course IV Zithromax 250 mg qD Dx: -05/18 CTA of abdominal aorta and iliofemoral runoff revealed fibrotic changes at the pleura of the lung bases suggestive of chronic interstitial lung disease as well as either atelectasis or new pneumonia at the RLL that, based on prior imaging that seems to have developed while the patient been in the ICU -05/10 MRSA Screen (+) -05/09 BCx both (-) -05/09 sputum culture grew pansensitive Streptococcus pneumoniae Renal: #KRYSTAL on CKD (improving) Patient's urine output today was 1300 mL (fluid balance: +200 mL) DDx: Prerenal KRYSTAL in setting of septic shock and likely ATN Dx: BUN 40 from 39 yesterday, CR 1.8 from 1.7 yesterday Rx: -Per nephrology recommendations, patient does not currently require HD -Will keep dialysis catheter due to both likely future HD need as well as the great difficulty in obtaining IV access on this patient RRx: -Follow-up on renal panel and monitor urine output Endocrine #IDDM II Patient on 30 units of insulin glargine daily at home along with regular insulin Blood glucose today = 150 Rx: -Continue SC insulin degludec 20 units daily -Continue step 3 insulin correction scale RRx: -Monitor blood glucose and titrate insulin accordingly #Hx of Hypothyroidism Dx: TSH elevated at 6 with normal FT4 Rx: -Continue PO levothyroxine 75 mcg ACBR GI: #No active issues Heme: #Leukocytosis From 05/15 - 05/18, patient's WBC uptrended (7.7 -> 20.4 -> 28.7 -> 33.0) which was attributed to new RLL pneumonia seen on 05/18 CTA study WBC has now started downtrending beginning on 05/19 (33.0 -> 27.8 -> 21.5 -> 18.0) as patient's suspected pneumonia has been treated with vancomycin and now linezolid DDx: VAP, aspiration pneumonia, cellulitis or osteomyelitis of R foot Dx: -05/18 CTA of abdominal aorta and iliofemoral runoff revealed fibrotic changes at the pleura of the lung bases suggestive of chronic interstitial lung disease as well as either atelectasis or new pneumonia at the RLL that, based on prior imaging that seems to have developed while the patient been in the ICU -05/17 foot XR was negative for signs of osteomyelitis -05/17 BCx's both show no growth after 48 hours -Per Rads, 05/16 CXR shows significant right lung pneumonia, being notably extensive in the RUL -05/15 UCx results pending -05/10 MRSA Screen (+) Rx: -Continue NG linezolid 600 mg q12HR (05/19--) -Discontinued IV vancomycin (05/17-05/19) RRx: -Patient's leukocytosis seems to be downtrending after using antibiotics to treat new suspected RLL pneumonia, suggesting that the initial leukocytosis may have been 2/2 this respiratory infection which had been resistant to patient's previous antibiotic regimen that was tailored for the CAP she presented with #Chronic normocytic anemia DDx: Anemia of chronic disease, CKD Dx: Hb 8.6 from 10.3 yesterday (started Eliquis yesterday, no current active bleeding) Rx: Continue to monitor CBC or signs of bleeding ID: #Ventilator-associated pneumonia Dx: -See Respiratory section. Rx: -See Respiratory section. Skin: #Right foot bullae Developed likely as a result of patient's diabetic status and peripheral arterial disease leading to hypoperfusion of the lower extremities (especially on the R) DDx: cellulitis, dependent edema, severe PAD, osteomyelitis Dx: -05/18 CTA of abdominal aorta and iliofemoral runoff showed occlusion with possible thrombus in the right proximal common iliac artery, opacification of the more distal right common iliac artery, occlusion of the distal right superficial femoral artery, occlusion of the right popliteal artery with only trace filling of anterior tibial and right posterior tibial arteries, and occlusion of the left posterior tibial artery at its origin -On exam right foot appears discolored with absent DP and PT pulses -05/17 foot x-ray did not show any overt signs of osteomyelitis Rx: -Continue wound care as per wound care nurse -Follow up with vascular surgery in the outpatient setting RRx: -Seems to be improving ICU Health Maintenance: Dispo: At this time, patient appears stabilized enough to no longer require ICU care and will be downgraded to floors today for further management. Diet: Nepro via NG Tube @ 20 mL/hr (with water flushes @ 25 mL/hr if no IV fluids) DVT ppx: PO Apixaban 2.5 mg BID GI ppx: IV Protonix 40mg qD Central line: Yes, JAMAL on 05/12- Arterial line: No Mena: Yes [05/10 - 05/21] Code status: DNR Plan of care discussed Dr. Sammie Butler, DO Internal Medicine, PGY-1
[2025-05-21] MEDS: HYDROcodone/APAP 5/325 TABLET 1 TAB PO ×2 (12:18→20:18)
--- NOTE | 2025-05-21 15:46 | PC.SS ---
Update: Patient has been downgraded to Tele on 05-21-25.
--- NOTE | 2025-05-21 18:04 | ESPR_ITS ---
<Statement entered by Erick Gambino MD - 05/21/25 21:48> Kassi Arguelles is an 80-year-old female with past medical history of HFpEF, A-fib on Eliquis, bradycardia status post pacemaker, hypothyroidism, chronic back pain, type 2 diabetes mellitus, and hypertension who was initially admitted to the ICU for septic shock secondary to Mucor pneumonia causing acute hypoxic episode failure. Intubated on 05/10/2025 and extubated on 05/16/2025, required pressor support and temporary dialysis. At this time, patient remains on linezolid given her kidney function due to possible ventilator associated pneumonia improvement in leukocytosis seen. CTA of lower extremity showed occlusion of proximal right common iliac, distal right superficial femoral, right popliteal and trace filling of anterior tibial and right posterior tibial arteries. Also showed occlusion of left posterior tibial artery at its origin. Consider consulting vascular surgery. However, extensive goals of care discussion occurred with patient's life partner, Daja, and her granddaughter, Lucinda, at bedside and decision was made to change CODE STATUS to DNR/DNI. Patient expressed in her own words that she wishes to pass peacefully at her home when the time comes and will speak to patient about hospice/palliative care. ----- Note reviewed and agree with care plan as documented. Please refer to the note below for further details. Plan discussed with attending physician Dr. Cuauhtemoc Gambino MD PGY-2 Internal Medicine Documentation for date of: 05/21/25 Subjective Subjective Interval history: 80 year-old female with PMHx noted for HFpEF, A-fib on Eliquis, bradycardia s/p pacemaker placement in 2022, hypothyroidism, chronic back pain, IDDM II, and hypertension who was admitted to ICU for further management and care of septic shock along with acute hypoxic respiratory failure in setting of community- acquired pneumonia. The patient was intubated on 05/10/2025 and was extubated on 05/16/2025. While intubated she was on pressor support and a temporary dialysis catheter was inserted. Per the ICU team, Bumex is being given on a day by day basis while monitoring her CKD. The patient did have a CTA on 05/18/2025 with contrast so consideration of contrast induced nephropathy is still being made in the presence of a creatinine of 1.8. The patient is currently on linezolid. Vancomycin was discontinued due to her kidney function. She is currently DNR DNI and would like a hospice referral upon discharge. She has an NG tube and is receiving tube feeds at 20 with a goal of 45, diet is on board. Patient is currently on a reduced dose of Eliquis 2.5 mg because of her ESRD. She will be downgraded to the floors today, 05/21/2025, and we will consider switching her to heparin with the thought of a potential intervention to operate on her severely gangrenous right lower extremity. Exam Vital Signs Temp Pulse Resp BP Pulse Ox O2 Del Method O2 Flow Rate 97.5 F 66 17 155/52 H 96 Nasal Cannula 1 05/21/25 16:00 05/21/25 17:01 05/21/25 17:01 05/21/25 17:01 05/21/25 17:01 05/21/25 16:00 05/21/25 16:00 FiO2 1 05/21/25 08:01 Narrative Exam General: Chronically ill-appearing lady. NG tube in place. Morbidly obese. Increased work of breathing. Neurologic: GCS 15. Alert and oriented x3, no gross neurological deficit, and patient able to move all 4 extremities. HEENT: Right IJ temporary dialysis catheter in place. No sign of infection. Normocephalic, atraumatic, mucous membranes moist. Pupils reactive to light. Heart: Regular rate and rhythm, normal S1 and S2, no murmurs. Lungs: On 1 L nasal cannula. Clear to auscultation bilaterally with no wheezing or crackles. Abdomen: Soft, nondistended, nontender, positive bowel sounds. No guarding or rebound tenderness. Extremities: Right foot is blue to purple in color on the 2nd through 4th toes. There is a ulceration on the hallux. There are dark patches along the calcaneus bone area extending to the medial plantar surface. The DP and posterior tibial pulses on the right leg are absent. The right lower extremity is also cold. Skin: Warm. Dry. No rash or ecchymoses. Objective Labs 05/22/25 04:20 05/22/25 11:38 Labs: Laboratory Results - last 24 hr 05/21/25 04:30 WBC 18.0 H RBC 2.89 L Hgb 8.6 L Hct 27.7 L MCV 96 MCH 29.8 MCHC 31.0 RDW Std Deviation 52.2 H Plt Count 179 Neut % (Auto) 82 H Lymph % (Auto) 9 L [place] % (Auto) 4 Eos % (Auto) 0 Baso % (Auto) 0 Neut # (Auto) 14.7 H Lymph # (Auto) 1.5 [place] # (Auto) 0.7 Eos # (Auto) 0.1 Baso # (Auto) 0.0 Immature Gran # (Auto) 0.89 H Absolute Nucleated RBC 0.00 Immature Gran % 5 H Nucleated RBC % 0 Sodium 144 Potassium 3.9 Chloride 111 H Carbon Dioxide 24.6 Anion Gap 8 BUN 40 H Creatinine 1.8 H Estim Creat Clear Calc 31.8 L eGFR 28 L BUN/Creatinine Ratio 22 H Glucose 150 H Calculated Osmolality 299 H Calcium 7.9 L Corrected Calcium 8.9 Phosphorus 3.9 Magnesium 1.6 Total Bilirubin 0.3 AST 20 ALT 31 Alkaline Phosphatase 56 Total Protein 4.9 L Albumin 2.7 L Globulin 2.2 L Albumin/Globulin Ratio 1.2 ABG Interpretation ABG results: 05/09/25 05/10/25 05/11/25 23:08 07:18 03:56 ABG pH 7.29 L 7.25 L 7.26 L ABG pCO2 41 49 H 41 ABG pO2 133 H 95 D 68 L D ABG HCO3 20 21 19 L ABG O2 Saturation 97 95 92 ABG Base Excess -7 L -6 L -8 L VBG pH VBG pCO2 VBG pO2 VBG Base Excess 05/12/25 05/13/25 05/14/25 04:09 04:02 04:18 ABG pH 7.23 L 7.32 L 7.38 ABG pCO2 44 43 34 ABG pO2 78 L 71 L 121 H D ABG HCO3 19 L 22 20 ABG O2 Saturation 94 92 97 ABG Base Excess -8 L -4 L -5 L VBG pH VBG pCO2 VBG pO2 VBG Base Excess 05/14/25 05/15/25 05/15/25 13:15 04:14 05:10 ABG pH 7.41 7.38 7.41 ABG pCO2 33 40 35 ABG pO2 113 H 48 L* D 89 D ABG HCO3 21 23 23 ABG O2 Saturation 98 82 L 98 ABG Base Excess -4 L -2 -2 VBG pH VBG pCO2 VBG pO2 VBG Base Excess 05/16/25 05/18/25 05/19/25 04:04 09:32 06:48 ABG pH 7.43 7.42 ABG pCO2 36 38 ABG pO2 84 74 L ABG HCO3 24 25 ABG O2 Saturation 96 93 ABG Base Excess 0 0 VBG pH 7.49 VBG pCO2 32 L VBG pO2 126 H VBG Base Excess 2 Quality Measures Quality Measures VTE prophylaxis, sepsis Current suspected stage: ruled out Possible source: pulmonary Blood cultures ordered: yes Antibiotic ordered: Yes and none Advance care planning discussed with:: patient Assessment & Plan Assessment Current Active Medications: Generic Name Dose Route Start Last Admin Trade Name Freq PRN Reason Stop Dose Admin Acetaminophen 650 mg 05/10/25 04:13 05/10/25 21:34 Acetaminophen 325 Mg Tablet PO 06/09/25 04:12 650 mg Q4HR PRN Administration PAIN SCALE 1-3 (mild Acetaminophen 650 mg 05/10/25 04:13 05/19/25 05:00 Acetaminophen Supp 650 Mg Supp CO 06/09/25 04:12 650 mg Q4HR PRN Administration PAIN SCALE 1-3 (mild Hydrocodone Bitart/Acetaminophen 1 tab 05/20/25 06:56 05/21/25 12:18 Hydrocodone/Apap 5/325 Tablet PO 05/25/25 06:55 1 tab Q6HR PRN Administration PAIN SCALE 4-10(Mod-Sev Al Hydrox/Mg Hydrox/Simethicone 30 ml 05/10/25 04:13 Mg Hyd/Al Hyd/Jackeline (Maalox Reg) Susp 30 Ml Udc PO 06/09/25 04:12 Q4HR PRN Heartburn or Upset Stomach Albuterol/Ipratropium 3 ml 05/19/25 01:00 05/21/25 12:08 Albuterol/Ipratropium (Duoneb) Rt Suma 3 Ml Nebu INH 06/18/25 00:59 3 ml Q6HRRT YURY Administration Amiodarone HCl 200 mg 05/10/25 09:00 05/21/25 08:34 Amiodarone Hcl 200 Mg Tablet PO 06/09/25 08:59 200 mg QDAY YURY Administration Amlodipine Besylate 10 mg 05/19/25 13:15 05/21/25 08:36 Amlodipine Besylate 5 Mg Tablet PO 06/18/25 13:14 10 mg QDAY YURY Administration Apixaban 2.5 mg 05/20/25 15:40 05/21/25 08:34 Apixaban 2.5 Mg Tablet PO 06/19/25 15:39 2.5 mg BID YURY Administration Artificial Tears 0 drop 05/13/25 14:52 05/16/25 23:58 Artificial Tears 225 Drop/15 Ml Btl BOTH EYES 06/12/25 14:51 2 drops PRN PRN Administration TO KEEP EYES MOIST Ascorbic Acid 500 mg 05/17/25 09:00 05/21/25 08:34 Ascorbic Acid 250 Mg Tablet PO 06/16/25 08:59 500 mg BID YURY Administration Atorvastatin Calcium 10 mg 05/19/25 21:00 05/20/25 20:09 Atorvastatin Calcium 10 Mg Tablet PO 06/18/25 20:59 10 mg HS YURY Administration Bumetanide 1 mg 05/22/25 09:00 Bumetanide Inj 0.25 Mg/Ml Vial 4 Ml IVP 06/21/25 08:59 QDAY YURY Bupropion HCl 200 mg 05/19/25 13:15 05/21/25 08:33 Bupropion Hcl 100 Mg Tablet PO 06/18/25 13:14 200 mg BID YURY Administration Carvedilol 6.25 mg 05/20/25 09:00 05/21/25 08:35 Carvedilol 3.125 Mg Tablet PO 06/19/25 08:59 6.25 mg BID YURY Administration Dextrose 25 ml 05/10/25 04:27 Dextrose 50%-Water Inj 50 Ml Syringe IV 06/09/25 04:26 Q15MIN PRN BG 50-70 responsive npo pt Dextrose 50 ml 05/10/25 04:27 Dextrose 50%-Water Inj 50 Ml Syringe IV 06/09/25 04:26 Q15MIN PRN BG <50 OR BG <70 & pt unresponsive Escitalopram Oxalate 20 mg 05/10/25 09:00 05/21/25 08:33 Escitalopram Oxalate 10 Mg Tablet PO 06/09/25 08:59 20 mg QDAY YURY Administration Glucagon 1 mg 05/10/25 04:27 Glucagon Inj 1 Mg Vial IM Q15MIN PRN BG <70, and no IV access Heparin Sodium (Porcine) 2,600 unit 05/19/25 14:08 Heparin Sod Inj 1000 Unit/Ml Vial 10 Ml INDWELLCAT 06/02/25 14:07 PRN PRN DIALYSIS Hydralazine HCl 10 mg 05/18/25 19:24 Hydralazine Inj 20 Mg/Ml Vial IVP 06/15/25 16:01 Q4H PRN SBP>180 and HR <70 Hydromorphone HCl 0.25 mg 05/20/25 08:09 05/21/25 14:33 Hydromorphone Inj 2 Mg/Ml Vial IVP 05/25/25 08:08 0.25 mg Q4HR PRN Administration BREAKTHROUGH PAIN Insulin Degludec 20 unit 05/17/25 09:00 05/21/25 08:37 Insulin Degludec 5 Unit/0.05 Ml (Per 5 Units) SC 06/16/25 08:59 20 unit QDAY YURY Administration Insulin Human Lispro 0 unit 05/15/25 12:00 05/21/25 17:21 Insulin Lispro (Admelog) 1 Unit/0.01 Ml Unit SC 06/09/25 11:59 Not Given Q6HR YURY Protocol Labetalol HCl 10 mg 05/18/25 19:24 05/18/25 23:22 Labetalol Inj 5 Mg/Ml Vial 20 Ml IVP 10 mg Q10MIN PRN Administration Sbp > 180 and HR >70 Levothyroxine Sodium 75 mcg 05/20/25 13:15 05/21/25 05:08 Levothyroxine Sodium 25 Mcg Tablet PO 06/19/25 13:14 75 mcg ACBR YURY Administration Linezolid 600 mg 05/20/25 11:30 05/21/25 08:33 Linezolid 600 Mg Tablet GT 05/27/25 11:29 600 mg BID YURY Administration Protocol Losartan Potassium 50 mg 05/16/25 13:30 05/21/25 08:34 Losartan Potassium 25 Mg Tablet PO 06/15/25 13:29 50 mg QDAY YURY Administration Magnesium Hydroxide 30 ml 05/10/25 04:13 Milk Of Magnesia Susp 30 Ml Udc PO 06/09/25 04:12 QDAY PRN CONSTIPATION Multivitamins 1 tab 05/17/25 09:00 05/21/25 08:33 Multivitamins Tablet PO 06/16/25 08:59 1 tab QDAY YURY Administration Ondansetron HCl 4 mg 09/16/25 10:57 05/20/25 18:26 Ondansetron Inj 2 Mg/Ml Inj 2 Ml IVP 06/19/25 10:56 4 mg Q6HR PRN Administration NAUSEA OR VOMITING Protocol Pantoprazole Sodium 40 mg 05/10/25 11:00 05/21/25 08:34 Pantoprazole Inj 40 Mg Vial IVP 06/09/25 10:59 40 mg QDAY YURY Administration Pharmacy Consult 1 each 05/17/25 08:40 Pharmacy Renal Dose Adjustment 1 Ea XX 06/16/25 08:39 PRN PRN CONSULT Sodium Chloride 1 spray 05/17/25 07:35 Saline Nasal 45 Ml Btl NASAL 06/16/25 07:34 PRN PRN CONGESTION Thiamine HCl 100 mg 05/18/25 15:15 05/21/25 08:35 Thiamine Inj 100 Mg/Ml Vial 2 Ml IVP 06/17/25 15:14 100 mg QDAY YURY Administration Zinc Sulfate 220 mg 05/17/25 09:00 05/21/25 08:34 Zinc Sulfate 220 Mg Capsule PO 05/31/25 08:59 220 mg QDAY YURY Administration Plan Summary: This an 80-year-old female with a past medical history of HFpEF, A-fib on Eliquis, bradycardia status post pacemaker placement 2022, hypothyroidism, chronic back pain, insulin-dependent type 2 diabetes mellitus, and hypertension was admitted to the ICU after being intubated with shock in the setting of acute hypoxic respiratory failure secondary to community-acquired pneumonia. She was downgraded to the floors on 05/21/2025. #Peripheral artery disease #Right foot bullae #Possible right foot gangrene * Patient has reduced pulses on the right leg * 2nd through 4th digits on the right foot appear blue and purple in color, per the ICU team the discoloration has been progressive * Considering the presence of severe peripheral artery disease versus diabetes * CTA of the abdominal aorta 05/18/2025 showed occlusion with possible thrombus in the right proximal common iliac artery, okay opacification of the more distal right common iliac artery, occlusion of the distal right superficial femoral artery, and occlusion of the right popliteal artery with trace filling of anterior tibial and right posterior tibial arteries and occlusion of the left posterior tibial artery at its origin * Right lower extremity arterial duplex ultrasound on 05/18/2025 showed severe obstructive peripheral artery disease with no flow in the posterior tibial artery * X-ray of the foot on 05/17/2025 showed no evidence of osteomyelitis Plan: * Continue wound care * Consider consultation to Dr. 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 daily via NG tube #Heart failure preserved ejection fraction with an EF of 50 to 55% * TTE on 05/10/2025 showed mild left ventricular hypertrophy with an EF of 50 to 55% * Right ventricular size is mildly increased with normal systolic function. Huertas sign is present Plan: * Will continue guideline directed medical therapy: Home p.o. losartan 50 mg daily, home p.o. carvedilol 6. To 5 mg twice daily * Consider adding ARB and SGLT2 inhibitor if the patient shows clinical signs of fluid overload including crackles on auscultation, opacities on chest x-ray, or peripheral edema #Paroxysmal atrial fibrillation * Patient had an episode of A-fib on 05/20/2025 that converted to sinus rhythm and has remained stable since * [id number] score of 9 Plan: * Will continue oral Eliquis 2.5 mg twice daily (reduced dose due to CKD) * Continue p.o. amiodarone 200 mg daily #Acute hypoxic respiratory failure secondary to community-acquired pneumonia requiring intubation #Ventilator associated pneumonia #Leukocytosis * White count trended upward from 05/16/2025 to 05/18/2025, has downtrended since then, consider ventilator associated pneumonia at the time * Patient recently completed a 7-day course of IV cefepime 2 g daily and a 5-day course of IV Zithromax 2050 mg daily * The patient's suspected ventilator associated pneumonia is currently being treated with linezolid, was also being treated with vancomycin which has been discontinued * Consider that the ventilator associated pneumonia arose after the treatment of cefepime and Zithromax, suggesting that this pneumonia reflected by the increase in white blood cell count during the patient's ICU stay was resistant to that original treatment. Currently the ventilator associated pneumonia appears to be responding to the current treatment regimen of linezolid Plan: * Will continue linezolid 600 mg twice daily via the NG tube, started on 05/19/2025 * Trend white blood cell count #Chronic interstitial lung disease with possible fibrosis * Consider as a side effect of amiodarone versus idiopathic * CTA of the abdominal aorta on 05/18/2025 showed fibrotic changes of the pleura of the lung bases suggestive of chronic interstitial lung disease Plan: * Will continue supplemental oxygen, wean as tolerated #KRYSTAL on CKD * Patient's baseline creatinine is 1.3, was 2.2 on admission * Per nephrology there is no need for hemodialysis at this time * Currently creatinine is 1.8 and stable since 05/18/2025 * Temporary dialysis catheter in place Plan: * Continue to monitor creatinine * Avoid nephrotoxic agents * Renally dose medications #Insulin-dependent type 2 diabetes mellitus * Patient is on 30 units of glargine daily at home with regular insulin * Glucose has been in the mid 100s Plan: * Will continue degludec 20 units daily * Step 3 insulin sliding scale #History of hypothyroidism * TSH 6, free T4 normal Plan: * Continue p.o. levothyroxine 75 mcg #Chronic normocytic anemia * Consider anemia of chronic disease in the presence of CKD * Hemoglobin 8.6 down from 10.3 * No signs of bleeding Plan: * Monitor H&H with daily labs #ICU acquired weakness * Per the ICU team, patient has had symmetrical limb weakness with lack of a clear cause due to a neuromuscular dysfunction like a stroke or spinal cord injury Plan: * Will continue physical therapy Hospital Maintenance: DVT ppx: Eliquis 2.5 mg twice daily GI ppx: IV Protonix 40 mg daily Diet: NG tube in place, Nepro at 20 mL/h with a goal of 45 mL/h IV lines: Right IJ temporary dialysis catheter Code status: DNR Dispo: Patient is downgraded from the ICU to the floors today. Will continue linezolid antibiotic regimen. Considering consultation with vascular surgery for peripheral artery disease and potential switch from Eliquis to heparin if an operation of her right lower extremity is being considered. Patient was seen and discussed with my attending physician Dr. Cuauhtemoc BOSWELL and my senior resident Dr. Immanuel LOPES PGY-2. Nigel Nolen DO PGY-1. Attending Provider Attestation/Addendum I, Mallory Posadas DO, attest that I was physically present for the [place] portions of the service and evaluated the patient with the resident and I reviewed and discussed the case with the resident and agree with the resident's findings and plans of care as documented above Patient is an 80-year-old female past medical history of HFpEF, A-fib on Eliquis, bradycardia status post PPM, hypothyroid, chronic back pain, type II IDDM and hypertension who was brought to the ED due to shortness of breath. On 05/10/2025. Patient was found to be in septic shock due to right lobar pneumonia. Patient was intubated and admitted to the ICU due to acute hypoxic respiratory failure secondary to aspiration pneumonia. Patient has had prolonged ICU stay as it was complicated by acute renal failure requiring dialysis, difficulty extubating patient and significant deconditioning. She had been found to have cyanosis of her right foot that has also been worsening, now extended between her last four digits and associated metatarsal. CTA of b/l LE had been done showing severe PAD with occlusion of her proximal right common iliac A and her left posterior tibial artery. Patient has been treated with linezolid for her pneumonia due to concern for ventilator associated pneumonia. Patient had a significantly elevated leukocytosis of 33 on 05/18/25. Source of infection may be from lungs versus right foot. Patient has completed a 7 day course of cefepime and a 5 day course of azithromycin prior to this. NG tube remains in place as patient has failed ST eval. She has since been downgraded from ICU to hospitalist service. Patient was seen and evaluated this afternoon. 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 Patient may need a vascular evaluation due to right foot ischemic changes and severe PAD. However, patient verbalized that she did not want any aggressive measures and wishes to go home. Plan to have goals of care discussion with patient and family. Will monitor h/h closely as patient has drop in H/H and currently on eliquis. However, no active bleeding noted.
[2025-05-21] MEDS: ATORVASTATIN CALCIUM 10 MG TABLET PO (20:17)
[2025-05-22] VITALS (27 sets, daily range): BP systolic 131–227; BP diastolic 49–132; PULSE 60–101; RESP 12–31; TEMP 36.1–36.6; O2SAT 87–100; BMI 42.5
[2025-05-22] MEDS: ALBUTEROL/IPRATROPIUM (Duoneb) RT SOL 3 ML NEBU INH ×4 (00:30→18:58)
--- NOTE | 2025-05-22 03:55 | XR_ITS ---
Examination: AP chest single view Technique one AP portable semiupright chest single view Date and time: May 22, 2025 0401 hrs., Comparison May 19, 2025 Indications: Chest pain shortness of breath today, rapid response Findings: Diffuse significant right lung pneumonia Heart failure with mild to moderate enlargement cardiac contour and prominent vascular congestion with early perihilar edema Right internal jugular dialysis catheter tips SVC Transvenous dual-chamber bipolar cardiac leads stable position Orogastric tube in the stomach, the tip is below the level film Mild to moderate right pleural effusion Prominent osteopenia Impression: Diffuse significant right lung pneumonia Mild heart failure
--- NOTE | 2025-05-22 03:58 | EKG_ITS ---
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 : 1945 Requested By: Markie Foote Order Number: [id number] Reading MD: Markie Foote Measurements Intervals Bath Rate: 94 P: 48 AL: 244 QRS: -1 QRSD: 130 T: 6 QT: 385 QTc: 482 Interpretive Statements SINUS RHYTHM WITH FIRST DEGREE AV BLOCK WITH OCCASIONAL SUPRAVENTRICULAR PREMATURE COMPLEXES POSSIBLE RIGHT VENTRICULAR CONDUCTION DELAY POSSIBLE ANTERIOR MYOCARDIAL INFARCTION , PROBABLY OLD ST DEPRESSION, CONSIDER SUBENDOCARDIAL INJURY Compared to ECG 05/09/2025 22:39:24 First degree AV block now present Myocardial infarct finding now present ST (T wave) deviation now present Atrial fibrillation no longer present Right-axis deviation no longer present Intraventricular conduction delay no longer present /store/S0/[id number].pdf
[2025-05-22] MEDS: BUMETANIDE INJ 0.25 MG/ML VIAL 4 ML 1 MG IVP ×3 (04:07→22:14)
[2025-05-22 04:08] LABS: Base Excess -1 (-3-3); HCO3 27 mEq/L (20-26); Inspired Oxygen, FIO2 21 %; O2 Saturation 98 % (91-98); PCO2 56 mmHg (32.0-48.0); PO2 197 mmHg (83-108); pH, Arterial 7.29 (7.35-7.45)
[2025-05-22 04:09] LABS: Allen Test Performed/OK; Puncture Site Right Radial
[2025-05-22] MEDS: HYDROmorphone INJ 2 MG/ML VIAL 0.25 MG IVP ×2 (04:10→09:48)
[2025-05-22 04:27] LABS: Lactate (Lactic Acid) 0.7 mMol/L (0.4-2.0)
[2025-05-22 04:29] LABS: Basophils # (Auto) 0.1 Thou/mm3 (0.0-0.2); Basophils % (Auto) 0 % (0-2.5); Eosinophils # (Auto) 0.2 Thou/mm3 (0.0-0.5); Eosinophils % (Auto) 1 % (0-10); Hematocrit 31.3 % (36.0-46.0); Hemoglobin 9.6 g/dL (12.0-16.0); Immature Granulocytes Auto 1.03 Thou/mm3 (0.00-0.00); Lymphocytes # (Auto) 1.6 Thou/mm3 (1.0-4.8); Lymphocytes % (Auto) 9 % (10-50); Mean Corpuscular HGB Conc 30.7 g/dl (31.0-37.0); Mean Corpuscular Hemoglobin 29.8 pg (25.0-35.0); Mean Corpuscular Volume 97 fL (80-100); Monocytes # (Auto) 0.8 Thou/mm3 (0.0-0.8); Monocytes % (Auto) 5 % (0-12); Neutrophils # (Auto) 13.2 Thou/mm3 (1.8-7.7); Neutrophils % (Auto) 78 % (37-80); Nucleated Red Blood Cell # 0.03 Thou/mm3 (0.00-0.00); Nucleated Red Blood Cell % 0 /100 WBC (0); Platelet Count 199 Thou/mm3 (140-440); RDW Standard Deviation 53.0 fL (36.4-46.3); Red Blood Count 3.22 Miln/mm3 (4.00-5.20); White Blood Count 16.8 Thou/mm3 (3.6-11.0)
--- NOTE | 2025-05-22 04:30 | PD.RESEVENT ---
Documentation for date of: 05/22/25 Event Note Event Note: Around 4:00AM RR called for sob, desatting mid 70s and SBP 220. On arrival, patient was already on BiPAP and oxygenation has already improved. BP remained elevated, HR stable. BG and temp WNL. On evaluation she was alert and oriented, complaining of SOB and chest pain. Exam demonstrated signs of fluid overload with 3+ yina LE edema, bilateral rales and coarse breath sounds. BUMEX 1 mg was given and she was continued on BiPAP. EKG showed sinus rhythm without acute ST changes. CXR showed congestion and bilateral angle blunting (as before). Lactic acid was normal. Labs ordered: troponin, CBC, CMP. Remained stable overall. Will continue with BiPAP HS. Will monitor closely. Case was discussed with attending physician. Markie Foote, PGY II This document was transcribed using voice recognition technology. Minor inaccuracies may be present.
[2025-05-22 04:53] LABS: Alanine Aminotransferase 32 U/L (10-49); Albumin, Serum 3.3 gm/dL (3.4-4.8); Albumin/Globulin Ratio 1.3 (1.2-2.2); Alkaline Phosphatase 64 U/L (46-116); Anion Gap 9 (7-16); Aspartate Amino Transferase 22 U/L (0-34); BUN/Creatinine Ratio 22 Ratio (12-20); Bilirubin,Total 0.4 mg/dL (0.3-1.2); Blood Urea Nitrogen 38 mg/dL (9-23); Calcium 8.3 mg/dL (8.3-10.6); Calcium (Corrected) 8.9 mg/dL (8.5-10.1); Carbon Dioxide 24.6 mMol/L (20.0-31.0); Chloride 112 mMol/L (98-107); Creatinine (Component) 1.7 mg/dL (0.6-1.3); Estimated Creatinine Clearance 33.7 mL/min (>60); Globulin 2.6 gm/dL (2.3-3.5); Glucose 131 mg/dL (74-106); Magnesium 1.4 mg/dL (1.6-2.6); Osmolality,Calculated 301 (275-295); Phosphorous 3.9 mg/dL (2.4-5.1); Potassium 3.9 mMol/L (3.4-5.1); Sodium 146 mMol/L (136-145); Total Protein 5.9 gm/dL (5.7-8.2); Troponin I 0.021 ng/mL (0.0-0.045); eGFR 30 See Note
[2025-05-22 05:21] LABS: Base Excess 2 (-3-3); HCO3 27 mEq/L (20-26); Inspired Oxygen, FIO2 40 %; O2 Saturation 98 % (91-98); PCO2 44 mmHg (32.0-48.0); PO2 151 mmHg (83-108); pH, Arterial 7.40 (7.35-7.45)
[2025-05-22 05:31] LABS: Allen Test Performed/OK; Puncture Site Left Radial
[2025-05-22] MEDS: LEVOTHYROXINE SODIUM 25 MCG TABLET 75 MCG PO (06:14)
[2025-05-22] MEDS: Magnesium Sulfate 4 GM Ivpb 4 GM/50 ML BAG IV (06:18)
--- NOTE | 2025-05-22 08:30 | XR_ITS ---
Examination: AP chest single view TECHNIQUE: AP portable upright chest single view Date and time: May 22, 2025 0839 hours, comparison 05/22/2025 0401 hours INDICATIONS: Shortness of breath hypoxia today, postintubation FINDINGS: Significant diffuse right lung pneumonia. [id number] heart failure with enlargement cardiac contour prominent vascular congestion and perihilar edema. Endotracheal tube tip 7 cm above jayson. Orogastric tube on this study projects in the mid to distal esophagus Right dialysis catheter tip SVC IMPRESSION: Advance the orogastric tube 12 CM
--- NOTE | 2025-05-22 08:50 | EVENTNT_ITS ---
<Statement entered by Erick Gambino MD - 05/25/25 14:06> No acute overnight events. Seen and examined at bedside and patient was on BiPAP saturating well around 95 to 97%. She is noted to be extremely weak as she can barely talk, move her head, or move her hands and feet, though at times she can say 1 or 2 words. Rapid response was called at approximately 8:30 AM for O2 saturation in low to mid 80s, but patient was noted to have taken off her BiPAP. Upon arrival to the room patient was already placed on BiPAP and saturating again at around 95 to 97%. Decision was made to place patient on HFNC, give 1 mg IV Bumex, and obtain chest x-ray. After rapid, patient was saturating well on HFNC. CXR not significantly changed compared to those taken previously. CT chest was also obtained that showed right-sided pneumonia and pleural effusion. Second rapid response called around 2 PM for increased work of breathing while on OxyMask and BiPAP was placed again and was given a 0.25 IV push of hydromorphone. At around 4 PM, goals of care discussion took place with Daja present in person and Idalia present over the phone. They were both updated regarding hos pital course after being downgraded, patient condition, and discussed further options, including full treatment, hospice care, and comfort care. After discussion, patient herself stated that she wished to go home with her own words and so decision was made to pursue hospice care. However, upon reassessment, patient was noted to be on BiPAP and saturating 90% with increased work of breathing. Previously, patient was able to follow commands and accurately shake her head no and nod yes. At this time she was unable to accurately shake her head no and nod yes and only followed some commands. Had a second goals of care discussion with Daja present and opted for comfort care but stated clearly that she did not want to start comfort care until she returned to the hospital after obtaining documents from home. It was also clearly stated that patient could not prove with capacity as she could not write down on paper due to weakness, shake her head yes or no accurately, give a thumbs up or thumbs down, or speak. Thus, will await for decision maker, Daja, to return to the hospital for further decisions whether to start comfort care or not. Documentation for date of: 05/22/25
--- NOTE | 2025-05-22 08:50 | PD.RESEVENT ---
Documentation for date of: 05/22/25
--- NOTE | 2025-05-22 08:59 | ESPR_ITS ---
<Statement entered by Barry Cochran MD - 05/22/25 13:13> TOTAL TIME: 45MINUTES ON DIRECT MEDICAL CARE, MANAGEMENT - COORDINATION AND COUNSELING > 50% OF TOTAL TIME I saw and evaluated the patient. I reviewed the resident?s note and agree with findings and plan as documented in the resident?s note. Seen on telemetry floor with ICU team A bit more short of breath today and we recommend resuming noninvasive positive pressure ventilation. Continue free water 30 mL/h after 500 mL free water flush. Continue Bumex for extravascular volume overload Patient remains DNR/DNI. Complete total 7 days linezolid Documentation for date of: 05/22/25 Subjective Subjective Interval history: 80 year-old female with PMHx noted for HFpEF, A-fib on Eliquis, bradycardia s/p pacemaker placement in 2022, hypothyroidism,chronic back pain, IDDM II, and hypertension was brought in from home by ambulance for complaints of worsening shortness of breath. No further history obtained from EMS, at the ED patient's BP 75/50 with heart rate of 102 and temp 105.1, labs were pH 7.29 WBC 24, creatinine 2.2, lactate 6, troponin 45, BNP 2800, Pro-Jamshid 23, and TSH of 6. ABG pH 7.29 and pCO2 of 41. CXR showed significant right lobar pneumonia with UA noted for high WBC/RBC/epithelial cells. Head CT was negative for acute findings, patient was intubated, femoral central line along with femoral arterial line were placed in ED. Patient received 3L of LR boluses, received 1 dose of ceftriaxone and azithromycin and was started on Levophed along with dobutamine. Patient will be admitted to ICU for further management and care of septic shock along with acute hypoxic respiratory failure in setting of community-acquired pneumonia. Interval History 05/10/25: Patient was examined at bedside; she is currently intubated and chemically induced on fentanyl drip to maintain RASS score -2 for mechanical ventilation. Current plan is to continue IV NS maintenance @ 100 mL/hr, IV cefepime 2 gm qD (started 05/10 @ 09:00) and IV Zithromax 250 mg qD (started 05/10 @ 09:00) for treatment of her community-acquired pneumonia, follow up on sputum culture to guide antibiotic de-escalation, and continue PO Cordarone 200 mg qD and PO Eliquis 2.5 mg BID (both started 05/10 @ 09:00) for treatment of her atrial fibrillation. Of note, patient's endotracheal tube was somehow dislodged today and required readjustment via bronchoscope to return the tube to its proper position. Will continue to monitor patient as her pneumonia is treated (including the performance of daily awakening trials) with the hope that resolution of the infection will remove her state of septic shock and ongoing acute hypoxic respiratory failure (disposition condition requires successful weaning off of ventilatory support and pressors). 05/11/2025: Overnight patient was given magnesium sulfate 4 g IV x 1. Ventilator on AC MV, VT 400, RR 20, PEEP 5, FiO2 40%. On fentanyl infusion, RASS -2. Input 2976, output 20 cc, balance +2956 cc. Patient responsive to noxious stimuli but RASS appears closer to -3, will wean sedation. Labs showed NA 138, K4.1, bicarb 19.4, BUN 36, CR 3.6, Phos 5.5. ABG pH 7.26, pCO2 41. Blood and sputum cultures pending, sputum Gram stain grew 4 plus GPC preliminary. Currently on Levophed infusion, titrating as necessary. Today will give 500 cc normal saline IVF bolus for fluid challenge. If urine output does not improve, will consult nephrology for possible urgent hemodialysis. 05/12/2025: Overnight sedation was weaned, no other events. Input 1165, output 0 cc. Patient remains intubated and mechanically ventilated, RASS -2 on fentanyl and Precedex infusion. Labs showed Hb 9.7, WBC 15.9, BUN 46, CR 4.5. Right lower extremity arterial duplex showed severe right leg obstructive PAD. Today we will place temporary dialysis catheter and plan for low rate dialysis as per nephrology recommendations. 05/13/2025: No events overnight. Input 1306, output 4 5, balance +901 cc. This morning patient remains on Precedex infusion with a RASS of -1. Norepinephrine infusion was turned off overnight as well as fentanyl infusion. ABG showed pH 7.32, pCO2 43. Hb 9.4, PLT 79, K3.7, Mg 1.8, BUN 43, CR 3.4. Will continue with daily SAT's and give patient a break on pressure support for 2 hours today. No plans for extubation as yet as patient's neurological status is still unable to be assessed due to residual sedation. Bumex 2 Mg IV x 1 as per nephrology recommendations. HD will also be held today as per nephrology. 05/14/2025: Overnight patient was switched between volume control and spontaneous ventilation. Input 3120, output 1419, balance 1630. Patient remains on low- dose Precedex and following commands labs showed WBC 3, Hb 8.7, PLT 65, K3.2, bicarb 19 point, BUN 48, CR 3.4. KCl 40 mEq IV x 1, Bicitra 30 mL GT twice daily and Bumex 2 Mg IV x 1 given as per nephrology recommendation. No hemodialysis today 05/15/2025: Overnight patient's alternated between volume control and pressure support ventilation due to vent dyssynchrony. 2258 cc, output 990 cc, balance +1268 cc. This morning patient was on low-dose Precedex but responds to noxious stimuli. Blood glucose between 200?3 100s in past 24 hours. Labs showed Hb 8, PLT 81, NA 137, K3.6, HCO3 22.6, BUN 44, CR 3.2, Mg 1.8. Sputum culture grew strep pneumonia pansensitive to all tested antibiotics. Will continue to hold on hemodialysis as per nephrology recommendations and Bicitra for 1 more day. Repleted with KCl 20 mEq IV x 1, magnesium sulfate 2 g IV x 1 and de-escalated antibiotics to ceftriaxone 1 g IV daily. Increased insulin degludec to 18 units daily and switch to insulin correction scale 3. Will attempt SBT today after SAT. Also will remove femoral central line. 05/16/2025: No overnight events. Today, patient was given SBT again while sedated on low-dose Precedex (due to her history of agitation and distress while on sedation vacation) to assess her likelihood of being extubated successfully purely from a physiological standpoint (tidal volume generation, maintenance of stable respiratory rate, achievement of adequate oxygenation, etc.) with anxiety/agitation removed from the equation; SBT was passed successfully. Patient's Rapid Shallow Breathing Index (Tidal Volume / RR) was calculated to be 450/23 = 51 breaths/min/L, suggesting likely successful extubation due to being a good amount below generally accepted threshold of 105 breaths/min/L. Patient's diaphragmatic and accessory muscle strength were also assessed via Negative Inspiratory Force testing and her NIF was found to be more negative than -70 cm H2O, further supporting the likelihood of successful extubation due to being more negative than generally accepted threshold -30 cm H2O. There was also airflow heard around the endotracheal tube during cuff leak test suggesting no upper airway obstruction or edema. Due to these auspicious findings, the decision was made to extubate the patient which she seems to have been tolerating well. However, since being extubated, patient has been having hypertension with SBP sometimes surpassing 200 (but usually being in the 180s-190s) which has been refractory to IV labetalol 10 mg x2, IV tylenol (pain relief). Patient will be given IV fentanyl 25 mcg (to treat possible opiate withdrawal) and have IV hydralazine 10 mg q4HR prn for SBP>180 to see if these measures will ameliorate her significant hypertension. Her home antihypertensives will be restarted once patient can tolerate PO medications or have oral route access instated. Of note, patient has new leukocytosis with WBC elevation to 20.4 from 7.7 yesterday; her dialysis line may be the nidus of infection but removal was ultimately decided against due to it being her only route of central access. Repeat CXR was clear, lowering clinical suspicion for new pneumonia. From nephrology's standpoint, patient was noted to have made 1000 mL of urine and HD can be held until Monday at which point her need for HD will be reevaluated. 05/17/2025: Overnight patient had no events. Input 316 cc, output 550 cc, balance -253 cc. Patient examined in ICU this morning, complains of mild SOB and is mouth breathing. She is oriented x 3. Denies any chest pain/pressure, palpitations, confusion or nausea. On exam patient had inspiratory stridor. Labs showed Hb 10.8, WBC up trended to 28.7 from 20.4, K3.5, NA 142, BUN 47, CR 2.3, Mg 1.7, glucose 203. Patient on last day of a 7-day course of cefepime IV for aspiration pneumonia. D5/0.45% NS at 60 cc/h was started to avoid hyponatremia as patient is currently n.p.o. as she failed swallow evaluation, will reattempt tomorrow. Insulin degludec was increased to 20 units daily. Right foot x-rays were performed which did not show any signs of osteomyelitis. For her uptrending white cell count, etiology suspected to be VAP and a one-time dose of vancomycin IV was given. Repeat blood cultures were also ordered. Bedside ultrasound of left IJ was also performed, vessel appeared to be stenosed with possible obstruction as well. This may be due to her implantable cardiac pacemaker and multiple procedures in the past. If her RIJ temporary dialysis catheter is removed, venous access on the left IJ would not be attempted/possible due to distorted anatomy. Will attempt today to achieve peripheral IV access. Also attempts were made to contact her NOKDaja at [phone], but were unsuccessful. 05/18/2025: No overnight events. Patient examined at bedside; she is oriented x 3 and observed to be on Oxygen Mask with labored breathing noted. The inspiratory stridor patient had yesterday seems moderately improved. The cyanosis / discoloration of the phalanges on the right foot do not seem to have advanced or spread from yesterday but there was noted sloughing of skin with serous drainage from the hallux (with a curvilinear lesion atop the hallux creating a depressed contour) upon removal of the SCDs as well as some new dark patches along the calcaneus that extend across the medial-plantar surface of the right foot. Patient continues to fail swallow and speech evaluation making PO route access nonviable. After assessing the patient, dietitian recommended against PPN at this moment in time due to the poor ratio of nutrition to large volume of feeding in the setting of patient's HFpEF and her edematous state. He recommends that the patient be given another chance to pass the swallow and speech evaluation tomorrow before considering PPN or tube feeding. Concerningly, patient's WBC count has continued uptrending without a confirmed source of infection; today, it increased to 33.0 from 28.7. Goals of care were discussed with patient's partner Daja and granddaughter Idalia. The concern for possible infection due to her WBC elevation was brought up as well as the possibility that the infection could be at the right foot, infection of one of her lines, or possible ongoing pneumonia despite antibiotic treatment. It was explained, however, that patient may not be the best candidate for vascular surgical intervention due to the need for a lower extremity CTA with contrast which would risk damaging her slowly healing kidneys in the setting of recent KRYSTAL. Other topics discussed included the hesitancy to remove her HD catheter line (even if it is infected) due to it being our only central access point and patient's lack of other viable areas to establish central access as well as the idea of pursuing hospice care in an effort to minimize patient's suffering as the clinical utility of more aggressive measures may not be worth it in her weakened state. For now, the plan moving forward is to continue patient's IV vancomycin for suspected ongoing infection in hopes that this will address her current leukocytosis and improve her condition in her weakened state s/p prolonged intubation and sedation. 05/19/2025: Overnight, patient had to be put back on BiPAP due to continuing tachypnea and respiratory distress. Patient was examined at bedside; she remains somnolent, lethargic, and generally weak. Of note, patient's WBC downtrended to 27.8 from 33.0 and her VBG results were relatively benign. The decision was made today to switch vancomycin to linezolid due to both 05/17 blood cultures being negative and evidence on abdominal CTA of either atelectasis or new pneumonia at the RLL in the setting of chronic interstitial lung disease w/ fibrosis that, based on prior imaging, seems to have developed while she had been in the ICU. The same CTA also showed occlusions in many different areas of the lower extremity vasculature that will be discussed in the A&P. Today, patient had an NG tube placed so that she could be started on tube trickle feeding @ 10 mL/hr as well as have her home medications restarted including: PO amiodarone 200 mg qD (previously on IV amiodarone), PO amlodipine 10 mg qD, PO atorvastatin 10 mg qD, PO bupropion HCl 200 mg BID, PO carvedilol 3.125 mg qD, PO escitalopram oxalate 20 mg qD, PO levothyroxine 75 mcg qD (will be started tomorrow since patient already received an IV dose today), and PO losartan 50 mg qD. Another goals of care discussion was held today at patient's bedside around 3:15 PM with patient's partner Daja (decision-maker) and granddaughter Idalia. During this discussion, it was emphasized to the patient's loved ones that the care team's goal was aligned with theirs in doing what was ultimately best for the patient but that there remained a very real possibility of the patient rapidly deteriorating at any moment due to her currently fragile state of health. The topic of Code Status was brought up to T[place] and it was explained to them that, should the patient's current condition acutely decline, that aggressive interventions including intubation, chest compressions, and defibrillation would most likely be ineffective in saving the patient given her age and infirmity and would, in all probability, only cause the patient to needlessly suffer. It was also mentioned that, in the unlikely event in which patient did manage to pull through after such interventions, that she would almost certainly end up permanently intubated or live in a state with drastically decreased quality of life. After patients' loved one verbalized their understanding of the ramifications of what their Code Status choice would be, they were provided a form to sign by [employer] Operator indicating what decision they chose. 05/20/25: No overnight events. Patient continues to require BiPAP but seems to be improving both in mental status and neuromusculoskeletal function. The wounds on her right foot also seem to be improving. Today, patient's linezolid was switched from IV to GT, her p.o. carvedilol dosing was increased from 3.125 mg twice daily to 6.25 mg twice daily, and she was given a one-time dose of IV Bumex 1 mg. Auspiciously, patient's leukocytosis has downtrended again (from 33.0 two days ago to 27.8 yesterday to 21.5 today) and her creatinine improved to 1.7 from 1.9 yesterday. Current plan remains unchanged and patient will continue on her antibiotic regimen for suspected right lower lobe pneumonia seen on CT imaging. 05/21/25: No overnight events. Patient continues to improve in mental status and shows complete awareness of this communications writer and attempts to answer questions; however, her voice is very faint and soft so it is difficult to hear her. She is still exhibiting labored, mouth-breathing but her respiratory status also seems improved as she is now on 1 L nasal cannula instead of BiPAP. With regards to the wounds on her right foot, there seems to be slight improvement without further spread from yesterday. Patient's WBC has also continued to downtrend for the third day in a row (18.0 from 21.5 yesterday), suggesting that her current antibiotic regimen of NG linezolid 600 mg qD has been efficacious in treating whatever etiology had caused her initially unexplained leukocytosis (currently attributed to new ventilator-associated pneumonia at the RLL seen on imaging). Patient's kidney function has remained relatively stable at 1.8 (from 1.7 yesterday). Of note, patient's Hgb did drop to 8.6 from 10.3 yesterday right after she was started on NG Eliquis 2.5 mg BID but no active bleeding has been observed thus far. At this time, patient appears stabilized enough to no longer require ICU care and will be downgraded to floors today for further management. It is recommended that she keep her dialysis catheter due to her likely requiring HD in the future alongside the fact that obtaining IV access on her has been very difficult. Ultimate goal is to discharge her to a SNF (with linezolid should she still not have completed her 14 day regimen) and avoiding drugs requiring IV access for the foreseeable future. Other important things to mention are that patient's respiratory status have significantly improved between 05/20-05/21, that patient was started on diuretics and that any creatinine bumps that may occur in the near future may have been contrast-induced due to her recent imaging studies, and that it is very important that patient have hospice goals of care discussion before she is discharged (patient has voiced being traumatized by ICU experience and verbalized that she would not want to return should her condition deteriorate again but would rather pass peacefully in comfort at home/SNF). 05/22/25: Overnight patient had [employer] due to respiratory distress and was started on BiPAP, tube feeds were held, labs were unremarkable, CXR showed diffuse bilateral PNA similar to prior imaging. In the morning [employer] was called again due to patient being in respiratory distress as she removed her BiPAP mask, her saturation was at 85%, she was started on high flow oxygen, her symptoms has improved. Her labs were unremarkable, CXR was consistent with prior imaging, NG tube was advanced 12 cm, repeat CXR ordered. When evaluated patient is not in distress, her saturation is ok at 92%, her high flow nasal cannula is off her face. Patient wants to restart BiPAP as it makes her breathing better. Bolus 500cc of FWF will be given due to worsening hypernatremia, patient can continue on FWF at 30cc/her while on BiPAP, ok to hold tube feeds. Continue on Bumex. Recommended GOC discussion regarding further management. Exam Vital Signs Temp Pulse Resp BP Pulse Ox O2 Del Method O2 Flow Rate 97.0 F 78 20 174/113 H 100 BiPAP 15 05/22/25 05:00 05/22/25 08:40 05/22/25 06:39 05/22/25 08:40 05/22/25 06:39 05/22/25 05:00 05/22/25 04:04 FiO2 30 05/22/25 06:39 Narrative Exam Gen: Well-developed elderly female, appears weak. HEENT: NCAT, PERRLA, EOMI, MMM, anicteric conjunctivae. CVS: normal S1 and S2. RRR. No M/R/G. Right IJ catheter appears clean. Resp: coarse breath B/L. No rhonchi, rales, crackles or wheezing. Abd: soft, obese, non-tender, non-distended. BS+ in all 4 quadrants. MSK: Good ROM in BUE & BLE. Bluish discoloration of great toe, 2nd, 3rd and 4th toes on right foot. Ulcerated lesion on hallux. Absent dorsalis pedis and posterior tibial pulse on right leg. Cold extremities (Rt>Lt). Neuro: CN II-XII grossly intact. Strength 1/5 in BUE & BLE. Alert and oriented x2. Objective Labs 05/22/25 04:20 05/22/25 04:20 Labs: Laboratory Results - last 24 hr 05/22/25 05/22/25 05/22/25 04:00 04:20 05:15 WBC 16.8 H RBC 3.22 L Hgb 9.6 L Hct 31.3 L MCV 97 MCH 29.8 MCHC 30.7 L RDW Std Deviation 53.0 H Plt Count 199 Neut % (Auto) 78 Lymph % (Auto) 9 L Monona % (Auto) 5 Eos % (Auto) 1 Baso % (Auto) 0 Neut # (Auto) 13.2 H Lymph # (Auto) 1.6 Monona # (Auto) 0.8 Eos # (Auto) 0.2 Baso # (Auto) 0.1 Immature Gran # (Auto) 1.03 H Absolute Nucleated RBC 0.03 H Immature Gran % 6 H Nucleated RBC % 0 Puncture Site Right Radial Left Radial ABG pH 7.29 L D 7.40 D ABG pCO2 56 H D 44 D ABG pO2 197 H D 151 H D ABG HCO3 27 H 27 H ABG O2 Saturation 98 98 ABG Base Excess -1 2 FiO2 21 40 Sodium 146 H Potassium 3.9 Chloride 112 H Carbon Dioxide 24.6 Anion Gap 9 BUN 38 H Creatinine 1.7 H Estim Creat Clear Calc 33.7 L eGFR 30 L BUN/Creatinine Ratio 22 H Glucose 131 H Calculated Osmolality 301 H Lactic Acid 0.7 Calcium 8.3 Corrected Calcium 8.9 Phosphorus 3.9 Magnesium 1.4 L Total Bilirubin 0.4 AST 22 ALT 32 Alkaline Phosphatase 64 Troponin I 0.021 Total Protein 5.9 Albumin 3.3 L D Globulin 2.6 Albumin/Globulin Ratio 1.3 ABG Interpretation ABG results: 05/09/25 05/10/25 05/11/25 23:08 07:18 03:56 ABG pH 7.29 L 7.25 L 7.26 L ABG pCO2 41 49 H 41 ABG pO2 133 H 95 D 68 L D ABG HCO3 20 21 19 L ABG O2 Saturation 97 95 92 ABG Base Excess -7 L -6 L -8 L VBG pH VBG pCO2 VBG pO2 VBG Base Excess 05/12/25 05/13/25 05/14/25 04:09 04:02 04:18 ABG pH 7.23 L 7.32 L 7.38 ABG pCO2 44 43 34 ABG pO2 78 L 71 L 121 H D ABG HCO3 19 L 22 20 ABG O2 Saturation 94 92 97 ABG Base Excess -8 L -4 L -5 L VBG pH VBG pCO2 VBG pO2 VBG Base Excess 05/14/25 05/15/25 05/15/25 13:15 04:14 05:10 ABG pH 7.41 7.38 7.41 ABG pCO2 33 40 35 ABG pO2 113 H 48 L* D 89 D ABG HCO3 21 23 23 ABG O2 Saturation 98 82 L 98 ABG Base Excess -4 L -2 -2 VBG pH VBG pCO2 VBG pO2 VBG Base Excess 05/16/25 05/18/25 05/19/25 04:04 09:32 06:48 ABG pH 7.43 7.42 ABG pCO2 36 38 ABG pO2 84 74 L ABG HCO3 24 25 ABG O2 Saturation 96 93 ABG Base Excess 0 0 VBG pH 7.49 VBG pCO2 32 L VBG pO2 126 H VBG Base Excess 2 05/22/25 05/22/25 04:00 05:15 ABG pH 7.29 L D 7.40 D ABG pCO2 56 H D 44 D ABG pO2 197 H D 151 H D ABG HCO3 27 H 27 H ABG O2 Saturation 98 98 ABG Base Excess -1 2 VBG pH VBG pCO2 VBG pO2 VBG Base Excess Quality Measures Quality Measures VTE prophylaxis, sepsis Current suspected stage: sepsis Possible source: pulmonary Blood cultures ordered: yes Antibiotic ordered: Yes and none Advance care planning discussed with:: patient Assessment & Plan Assessment Current Active Medications: Generic Name Dose Route Start Last Admin Trade Name Freq PRN Reason Stop Dose Admin Acetaminophen 650 mg 05/10/25 04:13 05/10/25 21:34 Acetaminophen 325 Mg Tablet PO 06/09/25 04:12 650 mg Q4HR PRN Administration PAIN SCALE 1-3 (mild Acetaminophen 650 mg 05/10/25 04:13 05/19/25 05:00 Acetaminophen Supp 650 Mg Supp MO 06/09/25 04:12 650 mg Q4HR PRN Administration PAIN SCALE 1-3 (mild Hydrocodone Bitart/Acetaminophen 1 tab 05/20/25 06:56 05/21/25 20:18 Hydrocodone/Apap 5/325 Tablet PO 05/25/25 06:55 1 tab Q6HR PRN Administration PAIN SCALE 4-10(Mod-Sev Al Hydrox/Mg Hydrox/Simethicone 30 ml 05/10/25 04:13 Mg Hyd/Al Hyd/Jackeline (Maalox Reg) Susp 30 Ml Udc PO 06/09/25 04:12 Q4HR PRN Heartburn or Upset Stomach Albuterol/Ipratropium 3 ml 05/19/25 01:00 05/22/25 06:39 Albuterol/Ipratropium (Duoneb) Rt Suma 3 Ml Nebu INH 06/18/25 00:59 3 ml Q6HRRT YURY Administration Amiodarone HCl 200 mg 05/10/25 09:00 05/21/25 08:34 Amiodarone Hcl 200 Mg Tablet PO 06/09/25 08:59 200 mg QDAY YURY Administration Amlodipine Besylate 10 mg 05/19/25 13:15 05/21/25 08:36 Amlodipine Besylate 5 Mg Tablet PO 06/18/25 13:14 10 mg QDAY YURY Administration Apixaban 2.5 mg 05/20/25 15:40 05/21/25 20:31 Apixaban 2.5 Mg Tablet PO 06/19/25 15:39 2.5 mg BID YURY Administration Artificial Tears 0 drop 05/13/25 14:52 05/16/25 23:58 Artificial Tears 225 Drop/15 Ml Btl BOTH EYES 06/12/25 14:51 2 drops PRN PRN Administration TO KEEP EYES MOIST Ascorbic Acid 500 mg 05/17/25 09:00 05/21/25 20:18 Ascorbic Acid 250 Mg Tablet PO 06/16/25 08:59 500 mg BID YURY Administration Atorvastatin Calcium 10 mg 05/19/25 21:00 05/21/25 20:17 Atorvastatin Calcium 10 Mg Tablet PO 06/18/25 20:59 10 mg HS YURY Administration Bumetanide 1 mg 05/22/25 21:00 Bumetanide Inj 0.25 Mg/Ml Vial 4 Ml IVP 06/21/25 20:59 BID YURY Bupropion HCl 200 mg 05/19/25 13:15 05/21/25 20:17 Bupropion Hcl 100 Mg Tablet PO 06/18/25 13:14 200 mg BID YURY Administration Carvedilol 6.25 mg 05/20/25 09:00 05/21/25 20:17 Carvedilol 3.125 Mg Tablet PO 06/19/25 08:59 6.25 mg BID YURY Administration Dextrose 25 ml 05/10/25 04:27 Dextrose 50%-Water Inj 50 Ml Syringe IV 06/09/25 04:26 Q15MIN PRN BG 50-70 responsive npo pt Dextrose 50 ml 05/10/25 04:27 Dextrose 50%-Water Inj 50 Ml Syringe IV 06/09/25 04:26 Q15MIN PRN BG <50 OR BG <70 & pt unresponsive Escitalopram Oxalate 20 mg 05/10/25 09:00 05/21/25 08:33 Escitalopram Oxalate 10 Mg Tablet PO 06/09/25 08:59 20 mg QDAY YURY Administration Glucagon 1 mg 05/10/25 04:27 Glucagon Inj 1 Mg Vial IM Q15MIN PRN BG <70, and no IV access Heparin Sodium (Porcine) 2,600 unit 05/19/25 14:08 Heparin Sod Inj 1000 Unit/Ml Vial 10 Ml INDWELLCAT 06/02/25 14:07 PRN PRN DIALYSIS Hydralazine HCl 10 mg 05/18/25 19:24 Hydralazine Inj 20 Mg/Ml Vial IVP 06/15/25 16:01 Q4H PRN SBP>180 and HR <70 Hydromorphone HCl 0.25 mg 05/20/25 08:09 05/22/25 04:10 Hydromorphone Inj 2 Mg/Ml Vial IVP 05/25/25 08:08 0.25 mg Q4HR PRN Administration BREAKTHROUGH PAIN Magnesium Sulfate 4 gm in 50 mls @ 12.5 mls/hr 05/22/25 05:04 05/22/25 06:18 Magnesium Sulfate Ivpb IV 05/22/25 09:03 12.5 mls/hr X1 ONE Administration Magnesium Sulfate 2 gm in 50 mls @ 25 mls/hr 05/22/25 08:42 Magnesium Sulfate Ivpb IV 05/22/25 10:41 X1 ONE Albumin Human 12.5 gm in 50 mls @ 50 mls/hr 05/22/25 08:42 Albuminar-25 Ivpb IV 05/22/25 09:41 X1 ONE Potassium Chloride 10 meq in 100 mls @ 100 mls/hr 05/22/25 08:54 Kcl Ivpb IV 05/22/25 09:53 X1 ONE Insulin Degludec 20 unit 05/17/25 09:00 05/21/25 08:37 Insulin Degludec 5 Unit/0.05 Ml (Per 5 Units) SC 06/16/25 08:59 20 unit QDAY YURY Administration Insulin Human Lispro 0 unit 05/15/25 12:00 05/22/25 05:09 Insulin Lispro (Admelog) 1 Unit/0.01 Ml Unit SC 06/09/25 11:59 Not Given Q6HR [facility] Protocol Labetalol HCl 10 mg 05/18/25 19:24 05/18/25 23:22 Labetalol Inj 5 Mg/Ml Vial 20 Ml IVP 10 mg Q10MIN PRN Administration Sbp > 180 and HR >70 Levothyroxine Sodium 75 mcg 05/20/25 13:15 05/22/25 06:14 Levothyroxine Sodium 25 Mcg Tablet PO 06/19/25 13:14 75 mcg ACBR YURY Administration Linezolid 600 mg 05/20/25 11:30 05/21/25 20:18 Linezolid 600 Mg Tablet GT 05/27/25 11:29 600 mg BID YURY Administration Protocol Losartan Potassium 50 mg 05/16/25 13:30 05/21/25 08:34 Losartan Potassium 25 Mg Tablet PO 06/15/25 13:29 50 mg QDAY YURY Administration Magnesium Hydroxide 30 ml 05/10/25 04:13 Milk Of Magnesia Susp 30 Ml Udc PO 06/09/25 04:12 QDAY PRN CONSTIPATION Multivitamins 1 tab 05/17/25 09:00 05/21/25 08:33 Multivitamins Tablet PO 06/16/25 08:59 1 tab QDAY YURY Administration Ondansetron HCl 4 mg 05/20/25 10:57 05/20/25 18:26 Ondansetron Inj 2 Mg/Ml Inj 2 Ml IVP 06/19/25 10:56 4 mg Q6HR PRN Administration NAUSEA OR VOMITING Protocol Pantoprazole Sodium 40 mg 05/10/25 11:00 05/21/25 08:34 Pantoprazole Inj 40 Mg Vial IVP 06/09/25 10:59 40 mg QDAY YURY Administration Pharmacy Consult 1 each 05/17/25 08:40 Pharmacy Renal Dose Adjustment 1 Ea XX 06/16/25 08:39 PRN PRN CONSULT Sodium Chloride 1 spray 05/17/25 07:35 Saline Nasal 45 Ml Btl NASAL 06/16/25 07:34 PRN PRN CONGESTION Thiamine HCl 100 mg 05/18/25 15:15 05/21/25 08:35 Thiamine Inj 100 Mg/Ml Vial 2 Ml IVP 06/17/25 15:14 100 mg QDAY YURY Administration Zinc Sulfate 220 mg 05/17/25 09:00 05/21/25 08:34 Zinc Sulfate 220 Mg Capsule PO 05/31/25 08:59 220 mg QDAY YURY Administration Plan 80 year-old female with PMHx noted for HFpEF, A-fib on Eliquis, bradycardia s/p pacemaker placement in 2022, hypothyroidism,chronic back pain, IDDM II, and hypertension admitted to ICU for further management and care of septic shock along with acute hypoxic respiratory failure in setting of community-acquired pneumonia. No overnight events. Patient continues to improve in mental status and shows complete awareness of this communications writer and attempts to answer questions; however, her voice is very faint and soft so it is difficult to hear her. She is still exhibiting labored, mouth-breathing but her respiratory status also seems improved as she is now on 1 L nasal cannula instead of BiPAP. With regards to the wounds on her right foot, there seems to be slight improvement without further spread from yesterday. Patient's WBC has also continued to downtrend for the third day in a row (18.0 from 21.5 yesterday), suggesting that her current antibiotic regimen of NG linezolid 600 mg qD has been efficacious in treating whatever etiology had caused her initially unexplained leukocytosis (currently attributed to new ventilator-associated pneumonia at the RLL seen on imaging). Patient's kidney function has remained relatively stable at 1.8 (from 1.7 yesterday). Of note, patient's Hgb did drop to 8.6 from 10.3 yesterday right after she was started on NG Eliquis 2.5 mg BID but no active bleeding has been observed thus far. At this time, patient appears stabilized enough to no longer require ICU care and will be downgraded to floors today for further management. It is recommended that she keep her dialysis catheter due to her likely requiring HD in the future alongside the fact that obtaining IV access on her has been very difficult. Ultimate goal is to discharge her to a SNF (with linezolid should she still not have completed her 14 day regimen) and avoiding drugs requiring IV access for the foreseeable future. Other important things to mention are that patient's respiratory status have significantly improved between 05/20-05/21, that patient was started on diuretics and that any creatinine bumps that may occur in the near future should be considered in the setting of recent contrast-using imaging studies, and that it is very important that patient have hospice goals of care discussion before she is discharged (patient has voiced being traumatized by ICU experience and verbalized that she would not want to return should her condition deteriorate again but would rather pass peacefully in comfort at home/SNF). #Ventilator-associated pneumonia, new. #Acute hypoxic respiratory failure secondary to community-acquired pneumonia, requiring intubation (resolved). #Chronic interstitial lung disease w/ possible fibrosis. #Intensive care unit - acquired weakness (ICUAW). Patient has recently completed 7-day course of IV cefepime 2 gm qD and 5-day course IV Zithromax 250 mg qD. From 05/15 - 05/18, patient's WBC uptrended (7.7 -> 20.4 -> 28.7 -> 33.0) which was attributed to new RLL pneumonia seen on 05/18 CTA study. WBC has now started downtrending beginning on 05/19 (33.0 -> 27.8 -> 21.5 -> 18.0) as patient's suspected pneumonia has been treated with vancomycin and now linezolid. 05/18 CTA of abdominal aorta and iliofemoral runoff revealed fibrotic changes at the pleura of the lung bases suggestive of chronic interstitial lung disease as well as either atelectasis or new pneumonia at the RLL that, based on prior imaging that seems to have developed while the patient been in the ICU. Plan: -continue NG linezolid 600 mg q12HR (05/19--). -continue on BiPAP if patient tolerates. -can continue FWF at 30cc/hr while on BiPAP. 500cc FWF bolus ordered for worsening hypernatremia. -continue on Bumex as scheduled. -continue aggressive physical therapy, encourage family members to passive ROM patient daily. -consider GOC discussion regarding further management. Plan of care discussed Dr. Cochran. Nilton Moore MD, PGY 3. Disclaimer: This note was dictated by speech recognition. Minor errors in roller skate assembler may be present due to voice recognition software.
[2025-05-22] MEDS: ALBUMIN HUMAN 25% IVPB 12.5 GM/50 ML BTL IV (09:04)
--- NOTE | 2025-05-22 09:08 | XR_ITS ---
Examination: AP chest single view Technique one AP portable semiupright chest single view Date and time: May 22, 2025 0921 hours, comparison 05/22/2025 0839 hours INDICATIONS: Reposition orogastric tube Pressure: Orogastric tube now is in the stomach satisfactory position The chest film is otherwise unchanged IMPRESSION: Orogastric tube now in satisfactory position in the stomach
--- NOTE | 2025-05-22 09:12 | PD.RESPRO ---
Documentation for date of: 05/22/25 Subjective Subjective Interval history: Patient is 80y/o F with PMH of HFpEF, A-fib on Eliquis, bradycardia s/p pacemaker placement in 2022, hypothyroidism,chronic back pain, IDDM II, and hypertension presented to the hospital due to worsening shortness of breathe. Per ICU note, no further history was obtained from the patient from EMS. Patient has been admitted to ICU for management of septic shock and acute hypoxic respiratory failure with community acquired pneumonia. Patient has been consulted to nephrology for management of KRYSTAL on CKD and possibility of hemodialysis. ED course: No further history obtained from EMS, at the ED patient's BP 75/50 with heart rate of 102 and temp 105.1, labs were pH 7.29 WBC 24, creatinine 2.2, lactate 6, troponin 45, BNP 2800, Pro-Jamshid 23, and TSH of 6. ABG pH 7.29 and pCO2 of 41. CXR showed significant right lobar pneumonia with UA noted for high WBC/RBC/epithelial cells. Head CT was negative for acute findings, patient was intubated, femoral central line along with femoral arterial line were placed in ED. Patient received 3L of LR boluses, received 1 dose of ceftriaxone and azithromycin and was started on Levophed along with dobutamine. PMH: Diabetes, HFpEF, A-fib, hypothyroidism, HTN, chronic back pain PSH: Cholecystectomy, 3 back surgeries SH: Does not drink or use illicit drugs. Smoked 1 pack a day for many years , quit 3 months ago. Allergies:?sulfa Medications: amiodarone, amlodipine, eliquis, atorvastatin, bupropion, escitalopram, gabapentin, hydromorphone, Lantus, levothyroxine, Reglan, pioglitazone, trazodone, montelukast. 05/11/2025: Patient unarousable and minimally interactive. BP: 108/58 Cr: 3.6, eGFR: 12, BUN:36 pH: 7.26, Urine Output: 20ml. Continue to monitor Urine output. If no improvement, then likely hemodialysis tomorrow. 05/12/2025: Labs reviewed and patient examined at the ICU. Patient is unarousable and unable to be questioned or interact with medical providers. BP: 84/66 Cr: 4.5, BUN:46, eGFR:9, pH: 7.23. Urine Output: 30ml. Patient will receive conventional Hemodialysis today for 3 hours. CRRT is not indicated at this time. will continue to montior renal function. 05/13/2025: Labs reviewed and patient examined at the ICU. Patient is still unarousable and unable to be questioned or interact with medical providers. BP: 136/67 Cr: 3.4, BUN:43, eGFR:13, pH: 7.32. Urine Output: 295ml. Patient's Creatinine is getting better. Will hold hemodialysis for today . Given Bumex 2mg x1 because of bilateral lower extremity swelling. 05/14/2025: Labs reviewed and patient examined at the ICU. Patient continues to be in unconscious state: BP:121/55 Cr: 3.4, BUN: 48, eGFR: 13, pH:7.38, Urine Output: 1.49L.Bicarb: 19.9. Patient is continuing to good urine, Creatinine is stable. No need for hemodialysis today. Patient has low bicarb likely due to diarrhea. Given bicitrate 30ml bid PO. Given Bumex 2mg IV x1. 05/15/2025: Labs reviewed and patient examined at the ICU. Patient continues to be in unconscious state. BP: 125/46, Cr: 3.2, BUN: 44, eGFR: 14. ABG pH: 7.41, Urine output: 990ml. Patient is continuing to good urine, Creatinine is stable. No need for hemodialysis. Continue to monitor renal function. 05/17/2025: patient currently seen in ICU. Extubated although unable to raise her hands due to significant critical illness polyneuropathy. Patient currently on BiPAP. Creatinine improving. Decreased p.o. intake-ICU team give IV fluids. Clinically patient looks rather hypervolemic. If no improvement in urine output we will do Bumex. Hold off on dialysis today. Labs/medications reviewed. Right IJ dialysis catheter could not be removed due to lack of venous access. 05/18/2025: Labs reviewed and patient examined at the ICU. Patient is arousable. Able to follow basic commends. Creatinine stable. Urine output: 1.3 L. Continue to monitor renal function. Bumex if needed. Cr: 1.9, BUN:52, eGFR:26 VBG pH: 7.49 05/19/2025: Labs reviewed and patient examined at the ICU. Patient is arousable. Able to follow basic commends. Creatinine stable. Urine output: 1.5 L. Dialysis not needed at this moment. Suggests removing dialysis catheter. Cr: 1.9, BUN:54, eGFR:26 VBG pH: 7.42. Patient received CTA with contrast yesterday. Will continue to monitor her symptoms. 05/20/2025: Labs reviewed and patient examined at the ICU. Patient can follow basic commends. Arousable. Patient discontinued vancomycin and replaced with lenezolid. Creatinine slightly decreased today. Urine output: 1.3L, Cr:1.7, BUN: 39, eGFR:30. No need for hemodialysis yet. Will continue to monitor her electrolytes. 05/21/2025:Labs reviewed and patient examined at the ICU. Current plan remains unchanged. No need for hemodialysis. Continue to monitor renal function. 1 dose of Bumex 1mg IV given by ICU team. BUN: 40, Cr:1.8, eGFR:28, UoP: 1.3L 05/22/2025:Labs reviewed and patient examined at the bedside. Patient got downgraded to telebed from ICU. Patient on bipap. Can understand, but has difficulty in commiunicating. Current plan remains unchanged. No need for hemodialysis. Continue to monitor renal function. BUN: 28, Cr:1.7, eGFR:30, UoP: 1.3L Exam Vital Signs Temp Pulse Resp BP Pulse Ox O2 Del Method O2 Flow Rate 97.0 F 78 20 174/113 H 100 BiPAP 15 05/22/25 05:00 05/22/25 08:40 05/22/25 06:39 05/22/25 08:40 05/22/25 06:39 05/22/25 05:00 05/22/25 04:04 FiO2 30 05/22/25 06:39 Narrative Exam General: Arousable. Eye: normal conjunctiva, no scleral icterus HENT: Normocephalic, atraumatic, moist oral mucosa Neck: Supple, non-tender, no JVD, no lymphadenopathy Lungs: symmetric chest rise, inspiratory stridor Heart: Peripheral pulses intact bilaterally, Regular Rate and Rhythm, No pitting edema of bilateral LEs. Abdomen: Soft, non-tender, non-distended, no palpable masses Musculoskeletal: No visible joint swelling, +1 bilateral lower extremity swelling. Skin: Blue discoloration and cold right feet. Neuro:Cranial nerves II-XII grossly intact.Sensations intact to light touch. Objective Labs 05/22/25 04:20 05/22/25 11:38 Labs: Laboratory Results - last 24 hr 05/22/25 05/22/25 05/22/25 04:00 04:20 05:15 WBC 16.8 H RBC 3.22 L Hgb 9.6 L Hct 31.3 L MCV 97 MCH 29.8 MCHC 30.7 L RDW Std Deviation 53.0 H Plt Count 199 Neut % (Auto) 78 Lymph % (Auto) 9 L [place] % (Auto) 5 Eos % (Auto) 1 Baso % (Auto) 0 Neut # (Auto) 13.2 H Lymph # (Auto) 1.6 [place] # (Auto) 0.8 Eos # (Auto) 0.2 Baso # (Auto) 0.1 Immature Gran # (Auto) 1.03 H Absolute Nucleated RBC 0.03 H Immature Gran % 6 H Nucleated RBC % 0 Puncture Site Right Radial Left Radial ABG pH 7.29 L D 7.40 D ABG pCO2 56 H D 44 D ABG pO2 197 H D 151 H D ABG HCO3 27 H 27 H ABG O2 Saturation 98 98 ABG Base Excess -1 2 FiO2 21 40 Sodium 146 H Potassium 3.9 Chloride 112 H Carbon Dioxide 24.6 Anion Gap 9 BUN 38 H Creatinine 1.7 H Estim Creat Clear Calc 33.7 L eGFR 30 L BUN/Creatinine Ratio 22 H Glucose 131 H Calculated Osmolality 301 H Lactic Acid 0.7 Calcium 8.3 Corrected Calcium 8.9 Phosphorus 3.9 Magnesium 1.4 L Total Bilirubin 0.4 AST 22 ALT 32 Alkaline Phosphatase 64 Troponin I 0.021 Total Protein 5.9 Albumin 3.3 L D Globulin 2.6 Albumin/Globulin Ratio 1.3 ABG Interpretation ABG results: 05/09/25 05/10/25 05/11/25 23:08 07:18 03:56 ABG pH 7.29 L 7.25 L 7.26 L ABG pCO2 41 49 H 41 ABG pO2 133 H 95 D 68 L D ABG HCO3 20 21 19 L ABG O2 Saturation 97 95 92 ABG Base Excess -7 L -6 L -8 L VBG pH VBG pCO2 VBG pO2 VBG Base Excess 05/12/25 05/13/25 05/14/25 04:09 04:02 04:18 ABG pH 7.23 L 7.32 L 7.38 ABG pCO2 44 43 34 ABG pO2 78 L 71 L 121 H D ABG HCO3 19 L 22 20 ABG O2 Saturation 94 92 97 ABG Base Excess -8 L -4 L -5 L VBG pH VBG pCO2 VBG pO2 VBG Base Excess 05/14/25 05/15/25 05/15/25 13:15 04:14 05:10 ABG pH 7.41 7.38 7.41 ABG pCO2 33 40 35 ABG pO2 113 H 48 L* D 89 D ABG HCO3 21 23 23 ABG O2 Saturation 98 82 L 98 ABG Base Excess -4 L -2 -2 VBG pH VBG pCO2 VBG pO2 VBG Base Excess 05/16/25 05/18/25 05/19/25 04:04 09:32 06:48 ABG pH 7.43 7.42 ABG pCO2 36 38 ABG pO2 84 74 L ABG HCO3 24 25 ABG O2 Saturation 96 93 ABG Base Excess 0 0 VBG pH 7.49 VBG pCO2 32 L VBG pO2 126 H VBG Base Excess 2 05/22/25 05/22/25 04:00 05:15 ABG pH 7.29 L D 7.40 D ABG pCO2 56 H D 44 D ABG pO2 197 H D 151 H D ABG HCO3 27 H 27 H ABG O2 Saturation 98 98 ABG Base Excess -1 2 VBG pH VBG pCO2 VBG pO2 VBG Base Excess Quality Measures Quality Measures VTE prophylaxis, sepsis Current suspected stage: sepsis Possible source: pulmonary Blood cultures ordered: yes Antibiotic ordered: Yes and none Advance care planning discussed with:: patient Assessment & Plan Assessment Current Active Medications: Generic Name Dose Route Start Last Admin Trade Name Freq PRN Reason Stop Dose Admin Acetaminophen 650 mg 05/10/25 04:13 05/10/25 21:34 Acetaminophen 325 Mg Tablet PO 06/09/25 04:12 650 mg Q4HR PRN Administration PAIN SCALE 1-3 (mild Acetaminophen 650 mg 05/10/25 04:13 05/19/25 05:00 Acetaminophen Supp 650 Mg Supp ID 06/09/25 04:12 650 mg Q4HR PRN Administration PAIN SCALE 1-3 (mild Hydrocodone Bitart/Acetaminophen 1 tab 05/20/25 06:56 05/21/25 20:18 Hydrocodone/Apap 5/325 Tablet PO 05/25/25 06:55 1 tab Q6HR PRN Administration PAIN SCALE 4-10(Mod-Sev Al Hydrox/Mg Hydrox/Simethicone 30 ml 05/10/25 04:13 Mg Hyd/Al Hyd/Jackeline (Maalox Reg) Susp 30 Ml Udc PO 06/09/25 04:12 Q4HR PRN Heartburn or Upset Stomach Albuterol/Ipratropium 3 ml 05/19/25 01:00 05/22/25 06:39 Albuterol/Ipratropium (Duoneb) Rt Suma 3 Ml Nebu INH 06/18/25 00:59 3 ml Q6HRRT YURY Administration Amiodarone HCl 200 mg 05/10/25 09:00 05/21/25 08:34 Amiodarone Hcl 200 Mg Tablet PO 06/09/25 08:59 200 mg QDAY YURY Administration Amlodipine Besylate 10 mg 05/19/25 13:15 05/21/25 08:36 Amlodipine Besylate 5 Mg Tablet PO 06/18/25 13:14 10 mg QDAY YURY Administration Apixaban 2.5 mg 05/20/25 15:40 05/21/25 20:31 Apixaban 2.5 Mg Tablet PO 06/19/25 15:39 2.5 mg BID YURY Administration Artificial Tears 0 drop 05/13/25 14:52 05/16/25 23:58 Artificial Tears 225 Drop/15 Ml Btl BOTH EYES 06/12/25 14:51 2 drops PRN PRN Administration TO KEEP EYES MOIST Ascorbic Acid 500 mg 05/17/25 09:00 05/21/25 20:18 Ascorbic Acid 250 Mg Tablet PO 06/16/25 08:59 500 mg BID YURY Administration Atorvastatin Calcium 10 mg 05/19/25 21:00 05/21/25 20:17 Atorvastatin Calcium 10 Mg Tablet PO 06/18/25 20:59 10 mg HS YURY Administration Bumetanide 1 mg 05/22/25 21:00 Bumetanide Inj 0.25 Mg/Ml Vial 4 Ml IVP 06/21/25 20:59 BID YURY Bupropion HCl 200 mg 05/19/25 13:15 05/21/25 20:17 Bupropion Hcl 100 Mg Tablet PO 06/18/25 13:14 200 mg BID YURY Administration Carvedilol 6.25 mg 05/20/25 09:00 05/21/25 20:17 Carvedilol 3.125 Mg Tablet PO 06/19/25 08:59 6.25 mg BID YURY Administration Dextrose 25 ml 05/10/25 04:27 Dextrose 50%-Water Inj 50 Ml Syringe IV 06/09/25 04:26 Q15MIN PRN BG 50-70 responsive npo pt Dextrose 50 ml 05/10/25 04:27 Dextrose 50%-Water Inj 50 Ml Syringe IV 06/09/25 04:26 Q15MIN PRN BG <50 OR BG <70 & pt unresponsive Escitalopram Oxalate 20 mg 05/10/25 09:00 05/21/25 08:33 Escitalopram Oxalate 10 Mg Tablet PO 06/09/25 08:59 20 mg QDAY YURY Administration Glucagon 1 mg 05/10/25 04:27 Glucagon Inj 1 Mg Vial IM Q15MIN PRN BG <70, and no IV access Heparin Sodium (Porcine) 2,600 unit 05/19/25 14:08 Heparin Sod Inj 1000 Unit/Ml Vial 10 Ml INDWELLCAT 06/02/25 14:07 PRN PRN DIALYSIS Hydralazine HCl 10 mg 05/18/25 19:24 Hydralazine Inj 20 Mg/Ml Vial IVP 06/15/25 16:01 Q4H PRN SBP>180 and HR <70 Hydromorphone HCl 0.25 mg 05/20/25 08:09 05/22/25 04:10 Hydromorphone Inj 2 Mg/Ml Vial IVP 05/25/25 08:08 0.25 mg Q4HR PRN Administration BREAKTHROUGH PAIN Magnesium Sulfate 2 gm in 50 mls @ 25 mls/hr 05/22/25 08:42 Magnesium Sulfate Ivpb IV 05/22/25 10:41 X1 ONE Albumin Human 12.5 gm in 50 mls @ 50 mls/hr 05/22/25 08:42 05/22/25 09:04 Albuminar-25 Ivpb IV 05/22/25 09:41 50 mls/hr X1 ONE Administration Potassium Chloride 10 meq in 100 mls @ 100 mls/hr 05/22/25 08:54 Kcl Ivpb IV 05/22/25 09:53 X1 ONE Insulin Degludec 20 unit 05/17/25 09:00 05/21/25 08:37 Insulin Degludec 5 Unit/0.05 Ml (Per 5 Units) SC 06/16/25 08:59 20 unit QDAY YURY Administration Insulin Human Lispro 0 unit 05/15/25 12:00 05/22/25 05:09 Insulin Lispro (Admelog) 1 Unit/0.01 Ml Unit SC 06/09/25 11:59 Not Given Q6HR YURY Protocol Labetalol HCl 10 mg 05/22/25 09:09 Labetalol Inj 5 Mg/Ml Vial 20 Ml IVP Q10MIN PRN Sbp > 160 and HR >70 Levothyroxine Sodium 75 mcg 05/20/25 13:15 05/22/25 06:14 Levothyroxine Sodium 25 Mcg Tablet PO 06/19/25 13:14 75 mcg ACBR YURY Administration Linezolid 600 mg 05/20/25 11:30 05/21/25 20:18 Linezolid 600 Mg Tablet GT 05/27/25 11:29 600 mg BID YURY Administration Protocol Losartan Potassium 50 mg 05/16/25 13:30 05/21/25 08:34 Losartan Potassium 25 Mg Tablet PO 06/15/25 13:29 50 mg QDAY YURY Administration Magnesium Hydroxide 30 ml 05/10/25 04:13 Milk Of Magnesia Susp 30 Ml Udc PO 06/09/25 04:12 QDAY PRN CONSTIPATION Multivitamins 1 tab 05/17/25 09:00 05/21/25 08:33 Multivitamins Tablet PO 06/16/25 08:59 1 tab QDAY YURY Administration Ondansetron HCl 4 mg 05/20/25 10:57 05/20/25 18:26 Ondansetron Inj 2 Mg/Ml Inj 2 Ml IVP 06/19/25 10:56 4 mg Q6HR PRN Administration NAUSEA OR VOMITING Protocol Pantoprazole Sodium 40 mg 05/10/25 11:00 05/21/25 08:34 Pantoprazole Inj 40 Mg Vial IVP 06/09/25 10:59 40 mg QDAY YURY Administration Pharmacy Consult 1 each 05/17/25 08:40 Pharmacy Renal Dose Adjustment 1 Ea XX 06/16/25 08:39 PRN PRN CONSULT Sodium Chloride 1 spray 05/17/25 07:35 Saline Nasal 45 Ml Btl NASAL 06/16/25 07:34 PRN PRN CONGESTION Thiamine HCl 100 mg 05/18/25 15:15 05/21/25 08:35 Thiamine Inj 100 Mg/Ml Vial 2 Ml IVP 06/17/25 15:14 100 mg QDAY YURY Administration Zinc Sulfate 220 mg 05/17/25 09:00 05/21/25 08:34 Zinc Sulfate 220 Mg Capsule PO 05/31/25 08:59 220 mg QDAY YURY Administration Plan Patient is 80y/o F with PMH of HFpEF, A-fib on Eliquis, bradycardia s/p pacemaker placement in 2022, hypothyroidism,chronic back pain, IDDM II, and hypertension presented to the hospital due to worsening shortness of breathe. Per ICU note, no further history was obtained from the patient from EMS. Patient has been admitted to ICU for management of septic shock and acute hypoxic respiratory failure with community acquired pneumonia. Patient has been consulted to nephrology for management of KRYSTAL on CKD and possibility of hemodialysis. #KRYSTAL-most likely related to ATN- underlying shock #Anemia -Upon admission, BUN: 20, Cr:2.2 (Baseline 1.3), eGFR: 22 -Patient has minimal edema, lungs clear, mucus membranes moist. -CXR (05/10/2025): Severe pneumonia right lung pneumonia noted -Currently, BUN: 38, Cr:1.7, eGFR:30, UoP: 1.3L Plan: -Patient is continuing to good urine, Creatinine is stable. No need for hemodialysis. -Will continue to monitor renal function. -Avoid nephrotoxins -Renally dose medication #Acute encephalopathy #Septic shock 2/2 CAP #HFpEF #NSTEMI likely type II #Atrial fibrillation #IDDM II #Hx of Hypothyroidism #Subclinical hypothyroidisim #Elevated T. bili #Leukocytosis #Community-acquired pneumonia - Management per ICU team Thank you for allowing us to participate in the care of your patient. Assessment and plan discussed with my attending physician Dr. Wes Melton (PGY-1)- Internal medicine resident Attending Provider Attestation/Addendum Patient seen and examined with resident physician Dr. Melton. Note reviewed, agree with findings and recommendations. Patient currently on BiPAP. Given a dose of diuretic patient's urine output seems to be better. KRYSTAL from ATN. Unable to remove dialysis catheter due to poor venous access. WBC tad better today. Mild elevation in creatinine from the contrast which was given on Monday. CTA runoff showed right arterial occlusion. No role for heparin.. Goals of care discussed with family-noted family agreed for hospice. significant functional decline. prognosis remains Agree with hospice Patient will be moved to telemetry.
[2025-05-22] MEDS: Magnesium Sulfate 2 GM Ivpb 2 GM/50 ML BAG IV (09:13)
[2025-05-22] MEDS: THIAMINE INJ 100 MG/ML VIAL 2 ML IVP (09:13)
[2025-05-22] MEDS: POTASSIUM CHL 10 mEq IVPB 10 MEQ/100 ML BAG 100 MEQ IV (09:59)
--- NOTE | 2025-05-22 10:48 | XR_ITS ---
Examination: CT chest, without intravenous contrast. Sagittal and coronal 2-D reconstructions. Exam date and time: May 22, 2025 1307 hours, comparison September 22, 2015 INDICATIONS: Shortness of breath today CTDI:vol (mGy) 30.9 DLP: (mGycm) 1254 Technique: Multiple 3.0 mm axial sections of the chest to been obtained. Bone and lung density settings are obtained. Sagittal and coronal 2-D reconstructions have been obtained. Low dose protocols were performed. One or more of the following dose reduction techniques were used; automated exposure control, adjustment of the mA and/or KV according to patient size, use of iterative reconstruction technique. Findings: Right internal jugular dialysis catheter tip SVC Heavy abdominal aortic calcification no aneurysmal dilatation Pulmonary artery segments are not enlarged. Diffuse right lung pneumonia Mild to moderate enlargement cardiac contour with prominent vascular congestion Small right pleural effusion No visualized liver or splenic lesion Orogastric tube in stomach Bilateral benign renal cysts IMPRESSION: Significant diffuse right lung pneumonia Mild heart failure Small right pleural effusion
[2025-05-22] MEDS: INSULIN DEGLUDEC 5 UNIT/0.05 ML (PER 5 UNITS) 10 UNIT SC (11:00)
[2025-05-22] MEDS: CEFEPIME INJ 1 GM in SODIUM CHLORIDE 0.9% (Popper) 50 ML IV ×2 (11:05→22:13)
--- NOTE | 2025-05-22 11:55 | ESPR_ITS ---
<Statement entered by Erick Gambino MD - 05/22/25 20:18> No acute overnight events. Seen and examined at bedside and patient was on BiPAP saturating well around 95 to 97%. She is noted to be extremely weak as she can barely talk, move her head, or move her hands and feet, though at times she can say 1 or 2 words. Rapid response was called at approximately 8:30 AM for O2 saturation in low to mid 80s, but patient was noted to have taken off her BiPAP. Upon arrival to the room patient was already placed on BiPAP and saturating again at around 95 to 97%. Decision was made to place patient on HFNC, give 1 mg IV Bumex, and obtain chest x-ray. After rapid, patient was saturating well on HFNC. CXR not significantly changed compared to those taken previously. CT chest was also obtained that showed right-sided pneumonia and pleural effusion. Second rapid response called around 2 PM for increased work of breathing while on OxyMask and BiPAP was placed again and was given a 0.25 IV push of hydromorphone. At around 4 PM, goals of care discussion took place with Daja present in person and Idalia present over the phone. They were both updated regarding hospital course after being downgraded, patient condition, and discussed further options, including full treatment, hospice care, and comfort care. After discussion, patient herself stated that she wished to go home with her own words and so decision was made to pursue hospice care. However, upon reassessment, patient was noted to be on BiPAP and saturating 90% with increased work of breathing. Previously, patient was able to follow commands and accurately shake her head no and nod yes. At this time she was unable to accurately shake her head no and nod yes and only followed some commands. Had a second goals of care discussion with Daja present and opted for comfort care but stated clearly that she did not want to start comfort care until she returned to the hospital after obtaining documents from home. It was also clearly stated that patient could not prove with capacity as she could not write down on paper due to weakness, shake her head yes or no accurately, give a thumbs up or thumbs down, or speak. Thus, will await for decision maker, Daja, to return to the hospital for further decisions whether to start comfort care or not. Documentation for date of: 05/22/25 Subjective Subjective Interval history: Rapid response was called at 4:30 in the morning ?because the patient desatted to the mid 70s and SBP was 220.? She was on BiPAP and the night team got there.? Patient was complaining of shortness of breath and chest pain.? She had signs of fluid overload like 3+ bilateral pitting edema in the lower extremities and bilateral rails and coarse breath sounds.? She received Bumex 1 mg.? EKG showed a normal sinus rhythm with no acute ST changes.? Chest x-ray showed congestion.? Tropes were negative. Another rapid was called at about 8:30 A.M. due to desaturation.? The patient was started on high flow nasal cannula, she was given another dose of 1 mg Bumex. She was also given dilaudid 0.25 mg. Her respiratory status improved. A third rapid response was called around 2:00 p.m. in the afternoon for increased work of breathing. The patient was placed on BiPAP and her respiratory status improved. Will plan for goals of care discussion with the patient and her surrogate decision makers. The patient's white count has trended down to 16.8 from 18. Hemoglobin 9.6 and stable. Sodium 146. Creatinine trended down slightly from 1.8 to 1.7, BUN trended down slightly from 40 to 38. Exam Vital Signs Temp Pulse Resp BP Pulse Ox O2 Del Method O2 Flow Rate 96.9 F 78 24 H 174/113 H 96 BiPAP 15 05/22/25 08:00 05/22/25 08:40 05/22/25 08:00 05/22/25 08:40 05/22/25 09:59 05/22/25 08:00 05/22/25 04:04 FiO2 30 05/22/25 09:59 Narrative Exam General: Chronically ill-appearing woman. NG tube in place. Morbidly obese. Increased work of breathing, acute respiratory distress. Neurologic: GCS 15. Alert and oriented x3, no gross neurological deficit, and patient able to move all 4 extremities. HEENT: Right IJ temporary dialysis catheter in place. No sign of infection. Normocephalic, atraumatic, mucous membranes moist. Pupils reactive to light. Heart: Regular rate and rhythm, normal S1 and S2, no murmurs. Lungs: On BiPAP. Coarse breath sounds in the upper lobes bilaterally, decreased breath sounds in the lower lobes bilaterally. Abdomen: Soft, nondistended, nontender, positive bowel sounds. No guarding or rebound tenderness. Extremities: Right foot is blue to purple in color on the 2nd through 4th toes. There is a ulceration on the hallux. There are dark patches along the calcaneus bone area extending to the medial plantar surface. The DP and posterior tibial pulses on the right leg are absent. The right lower extremity is also cold. Skin: Warm. Dry. No rash or ecchymoses. Objective Labs 05/22/25 04:20 05/22/25 11:38 Labs: Laboratory Results - last 24 hr 05/22/25 05/22/25 05/22/25 04:00 04:20 05:15 WBC 16.8 H RBC 3.22 L Hgb 9.6 L Hct 31.3 L MCV 97 MCH 29.8 MCHC 30.7 L RDW Std Deviation 53.0 H Plt Count 199 Neut % (Auto) 78 Lymph % (Auto) 9 L Worth % (Auto) 5 Eos % (Auto) 1 Baso % (Auto) 0 Neut # (Auto) 13.2 H Lymph # (Auto) 1.6 Worth # (Auto) 0.8 Eos # (Auto) 0.2 Baso # (Auto) 0.1 Immature Gran # (Auto) 1.03 H Absolute Nucleated RBC 0.03 H Immature Gran % 6 H Nucleated RBC % 0 Puncture Site Right Radial Left Radial ABG pH 7.29 L D 7.40 D ABG pCO2 56 H D 44 D ABG pO2 197 H D 151 H D ABG HCO3 27 H 27 H ABG O2 Saturation 98 98 ABG Base Excess -1 2 FiO2 21 40 Sodium 146 H Potassium 3.9 Chloride 112 H Carbon Dioxide 24.6 Anion Gap 9 BUN 38 H Creatinine 1.7 H Estim Creat Clear Calc 33.7 L eGFR 30 L BUN/Creatinine Ratio 22 H Glucose 131 H Calculated Osmolality 301 H Lactic Acid 0.7 Calcium 8.3 Corrected Calcium 8.9 Phosphorus 3.9 Magnesium 1.4 L Total Bilirubin 0.4 AST 22 ALT 32 Alkaline Phosphatase 64 Troponin I 0.021 Total Protein 5.9 Albumin 3.3 L D Globulin 2.6 Albumin/Globulin Ratio 1.3 ABG Interpretation ABG results: 09/01/2605/10/25 05/11/25 23:08 07:18 03:56 ABG pH 7.29 L 7.25 L 7.26 L ABG pCO2 41 49 H 41 ABG pO2 133 H 95 D 68 L D ABG HCO3 20 21 19 L ABG O2 Saturation 97 95 92 ABG Base Excess -7 L -6 L -8 L VBG pH VBG pCO2 VBG pO2 VBG Base Excess 05/12/25 05/13/25 05/14/25 04:09 04:02 04:18 ABG pH 7.23 L 7.32 L 7.38 ABG pCO2 44 43 34 ABG pO2 78 L 71 L 121 H D ABG HCO3 19 L 22 20 ABG O2 Saturation 94 92 97 ABG Base Excess -8 L -4 L -5 L VBG pH VBG pCO2 VBG pO2 VBG Base Excess 05/14/25 05/15/25 05/15/25 13:15 04:14 05:10 ABG pH 7.41 7.38 7.41 ABG pCO2 33 40 35 ABG pO2 113 H 48 L* D 89 D ABG HCO3 21 23 23 ABG O2 Saturation 98 82 L 98 ABG Base Excess -4 L -2 -2 VBG pH VBG pCO2 VBG pO2 VBG Base Excess 05/16/25 05/18/25 05/19/25 04:04 09:32 06:48 ABG pH 7.43 7.42 ABG pCO2 36 38 ABG pO2 84 74 L ABG HCO3 24 25 ABG O2 Saturation 96 93 ABG Base Excess 0 0 VBG pH 7.49 VBG pCO2 32 L VBG pO2 126 H VBG Base Excess 2 05/22/25 05/22/25 04:00 05:15 ABG pH 7.29 L D 7.40 D ABG pCO2 56 H D 44 D ABG pO2 197 H D 151 H D ABG HCO3 27 H 27 H ABG O2 Saturation 98 98 ABG Base Excess -1 2 VBG pH VBG pCO2 VBG pO2 VBG Base Excess Quality Measures Quality Measures VTE prophylaxis, sepsis Current suspected stage: ruled out Possible source: pulmonary Blood cultures ordered: yes Antibiotic ordered: Yes and none Advance care planning discussed with:: patient and legal surragate Assessment & Plan Assessment Current Active Medications: Generic Name Dose Route Start Last Admin Trade Name Freq PRN Reason Stop Dose Admin Acetaminophen 650 mg 09/06/25 04:13 05/10/25 21:34 Acetaminophen 325 Mg Tablet PO 06/09/25 04:12 650 mg Q4HR PRN Administration PAIN SCALE 1-3 (mild Acetaminophen 650 mg 05/10/25 04:13 05/19/25 05:00 Acetaminophen Supp 650 Mg Supp GA 06/09/25 04:12 650 mg Q4HR PRN Administration PAIN SCALE 1-3 (mild Hydrocodone Bitart/Acetaminophen 1 tab 05/22/25 11:26 Hydrocodone/Apap 5/325 Tablet NG 05/25/25 06:55 Q6HR PRN PAIN SCALE 4-10(Mod-Sev Al Hydrox/Mg Hydrox/Simethicone 30 ml 05/10/25 04:13 Mg Hyd/Al Hyd/Jackeline (Maalox Reg) Susp 30 Ml Udc PO 06/09/25 04:12 Q4HR PRN Heartburn or Upset Stomach Albuterol/Ipratropium 3 ml 05/19/25 01:00 05/22/25 06:39 Albuterol/Ipratropium (Duoneb) Rt Suma 3 Ml Nebu INH 06/18/25 00:59 3 ml Q6HRRT YURY Administration Amiodarone HCl 200 mg 05/22/25 11:27 Amiodarone Hcl 200 Mg Tablet NG 06/09/25 08:59 QDAY YURY Amlodipine Besylate 10 mg 05/22/25 11:27 Amlodipine Besylate 5 Mg Tablet NG 06/18/25 13:14 QDAY YURY Apixaban 2.5 mg 05/22/25 11:27 Apixaban 2.5 Mg Tablet NG 06/19/25 15:39 BID YURY Artificial Tears 0 drop 05/13/25 14:52 05/16/25 23:58 Artificial Tears 225 Drop/15 Ml Btl BOTH EYES 06/12/25 14:51 2 drops PRN PRN Administration TO KEEP EYES MOIST Ascorbic Acid 500 mg 05/22/25 11:28 Ascorbic Acid 250 Mg Tablet NG 06/16/25 08:59 BID YURY Atorvastatin Calcium 10 mg 05/22/25 11:28 Atorvastatin Calcium 10 Mg Tablet NG 06/18/25 20:59 HS YURY Bumetanide 1 mg 05/22/25 21:00 Bumetanide Inj 0.25 Mg/Ml Vial 4 Ml IVP 06/21/25 20:59 BID YURY Bupropion HCl 200 mg 05/22/25 11:28 Bupropion Hcl 100 Mg Tablet NG 06/18/25 13:14 BID YURY Carvedilol 6.25 mg 05/22/25 11:28 Carvedilol 3.125 Mg Tablet NG 06/19/25 08:59 BID YURY Dextrose 25 ml 05/10/25 04:27 Dextrose 50%-Water Inj 50 Ml Syringe IV 06/09/25 04:26 Q15MIN PRN BG 50-70 responsive npo pt Dextrose 50 ml 05/10/25 04:27 Dextrose 50%-Water Inj 50 Ml Syringe IV 06/09/25 04:26 Q15MIN PRN BG <50 OR BG <70 & pt unresponsive Escitalopram Oxalate 20 mg 05/22/25 11:29 Escitalopram Oxalate 10 Mg Tablet NG 06/09/25 08:59 QDAY YURY Glucagon 1 mg 05/10/25 04:27 Glucagon Inj 1 Mg Vial IM Q15MIN PRN BG <70, and no IV access Heparin Sodium (Porcine) 2,600 unit 05/19/25 14:08 Heparin Sod Inj 1000 Unit/Ml Vial 10 Ml INDWELLCAT 06/02/25 14:07 PRN PRN DIALYSIS Hydralazine HCl 10 mg 05/18/25 19:24 Hydralazine Inj 20 Mg/Ml Vial IVP 06/15/25 16:01 Q4H PRN SBP>180 and HR <70 Hydromorphone HCl 0.25 mg 05/20/25 08:09 05/22/25 04:10 Hydromorphone Inj 2 Mg/Ml Vial IVP 05/25/25 08:08 0.25 mg Q4HR PRN Administration BREAKTHROUGH PAIN Cefepime HCl 1 gm/ Sodium 50 mls @ 100 mls/hr 05/22/25 10:50 05/22/25 11:05 Chloride IV 05/29/25 10:49 100 mls/hr Q12HR YURY Administration Insulin Degludec 10 unit 05/22/25 10:00 05/22/25 11:00 Insulin Degludec 5 Unit/0.05 Ml (Per 5 Units) SC 06/21/25 09:59 10 unit QDAY YURY Administration Insulin Human Lispro 0 unit 05/15/25 12:00 05/22/25 11:06 Insulin Lispro (Admelog) 1 Unit/0.01 Ml Unit SC 06/09/25 11:59 Not Given Q6HR YURY Protocol Labetalol HCl 10 mg 05/22/25 09:09 Labetalol Inj 5 Mg/Ml Vial 20 Ml IVP Q10MIN PRN Sbp > 160 and HR >70 Levothyroxine Sodium 75 mcg 05/22/25 11:30 Levothyroxine Sodium 25 Mcg Tablet NG 06/19/25 13:14 ACBR YURY Linezolid 600 mg 05/20/25 11:30 05/21/25 20:18 Linezolid 600 Mg Tablet GT 05/27/25 11:29 600 mg BID YURY Administration Protocol Losartan Potassium 50 mg 05/22/25 11:26 Losartan Potassium 25 Mg Tablet NG 06/15/25 13:29 QDAY YURY Magnesium Hydroxide 30 ml 05/10/25 04:13 Milk Of Magnesia Susp 30 Ml Udc PO 06/09/25 04:12 QDAY PRN CONSTIPATION Multivitamins 1 tab 05/22/25 11:31 Multivitamins Tablet NG 06/16/25 08:59 QDAY YURY Ondansetron HCl 4 mg 05/20/25 10:57 05/20/25 18:26 Ondansetron Inj 2 Mg/Ml Inj 2 Ml IVP 06/19/25 10:56 4 mg Q6HR PRN Administration NAUSEA OR VOMITING Protocol Pantoprazole Sodium 40 mg 05/10/25 11:00 05/22/25 09:16 Pantoprazole Inj 40 Mg Vial IVP 06/09/25 10:59 40 mg QDAY YURY Administration Pharmacy Consult 1 each 05/17/25 08:40 Pharmacy Renal Dose Adjustment 1 Ea XX 06/16/25 08:39 PRN PRN CONSULT Sodium Chloride 1 spray 05/17/25 07:35 Saline Nasal 45 Ml Btl NASAL 06/16/25 07:34 PRN PRN CONGESTION Thiamine HCl 100 mg 05/18/25 15:15 05/22/25 09:13 Thiamine Inj 100 Mg/Ml Vial 2 Ml IVP 06/17/25 15:14 100 mg QDAY YURY Administration Zinc Sulfate 220 mg 05/22/25 11:30 Zinc Sulfate 220 Mg Capsule NG 05/31/25 08:59 QDAY [facility] Plan Summary: This an 80-year-old female with a past medical history of HFpEF, A-fib on Eliquis, bradycardia status post pacemaker placement 2022, hypothyroidism, chronic back pain, insulin-dependent type 2 diabetes mellitus, and hypertension was admitted to the ICU after being intubated with shock in the setting of acute hypoxic respiratory failure secondary to community-acquired pneumonia. She was downgraded to the floors on 05/21/2025. #Peripheral artery disease #Right foot bullae #Possible right foot gangrene * Patient has reduced pulses on the right leg * 2nd through 4th digits on the right foot appear blue and purple in color, per the ICU team the discoloration has been progressive * Considering the presence of severe peripheral artery disease versus diabetes * CTA of the abdominal aorta 05/18/2025 showed occlusion with possible thrombus in the right proximal common iliac artery, okay opacification of the more distal right common iliac artery, occlusion of the distal right superficial femoral artery, and occlusion of the right popliteal artery with trace filling of anterior tibial and right posterior tibial arteries and occlusion of the left posterior tibial artery at its origin * Right lower extremity arterial duplex ultrasound on 05/18/2025 showed severe obstructive peripheral artery disease with no flow in the posterior tibial artery * X-ray of the foot on 05/17/2025 showed no evidence of osteomyelitis Plan: * Continue wound care * Consider consultation to Dr. 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 Therefore several of the following medications were received by the patient later than usual Plan: * Will continue home medications for hypertension: PO amlodipine 10 mg qD, PO losartan 50 mg qD, PO carvedilol 6.25 mg BID, amiodarone 200 mg p.o. daily via NG tube #Heart failure preserved ejection fraction with an EF of 50 to 55% * TTE on 05/10/2025 showed mild left ventricular hypertrophy with an EF of 50 to 55% * Right ventricular size is mildly increased with normal systolic function. Huertas sign is present Plan: * Will continue guideline directed medical therapy: Home p.o. losartan 50 mg daily, home p.o. carvedilol 6. To 5 mg twice daily * Consider adding ARB and SGLT2 inhibitor if the patient shows clinical signs of fluid overload including crackles on auscultation, opacities on chest x-ray, or peripheral edema #Paroxysmal atrial fibrillation * Patient had an episode of A-fib on 05/20/2025 that converted to sinus rhythm and has remained stable since Plan: * Will continue oral Eliquis 2.5 mg twice daily (reduced dose due to CKD) * Continue p.o. amiodarone 200 mg daily #Acute hypoxic respiratory failure secondary to community-acquired pneumonia requiring intubation #Ventilator associated pneumonia #Leukocytosis * White count trended upward from 05/16/2025 to 05/18/2025, has downtrended since then, consider ventilator associated pneumonia at the time * Patient recently completed a 7-day course of IV cefepime 2 g daily and a 5-day course of IV Zithromax 2050 mg daily * The patient's suspected ventilator associated pneumonia is currently being treated with linezolid, was also being treated with vancomycin which has been discontinued * Consider that the ventilator associated pneumonia arose after the treatment of cefepime and Zithromax, suggesting that this pneumonia reflected by the increase in white blood cell count during the patient's ICU stay was resistant to that original treatment. Currently the ventilator associated pneumonia appears to be responding to the current treatment regimen of linezolid Plan: * Will continue linezolid 600 mg twice daily via the NG tube, started on 05/19/2025 * Trend white blood cell count * ID consult * Started cefepime 1 g IV every 12 hours on 05/22/2025 * Will follow-up lactate, Pro-Jamshid, BNP, CRP #Chronic interstitial lung disease with possible fibrosis * Consider as a side effect of amiodarone versus idiopathic * CTA of the abdominal aorta on 05/18/2025 showed fibrotic changes of the pleura of the lung bases suggestive of chronic interstitial lung disease * Chest CT on 05/22/2025 showed significant diffuse right lung pneumonia with mild heart failure and a small right pleural effusion. Plan: * Will continue supplemental oxygen, BiPAP, wean as tolerated #KRYSTAL on CKD * Patient's baseline creatinine is 1.3, was 2.2 on admission * Per nephrology there is no need for hemodialysis at this time * Currently creatinine is 1.8 and stable since 05/18/2025 * Temporary dialysis catheter in place Plan: * Continue to monitor creatinine * Avoid nephrotoxic agents * Renally dose medications #Insulin-dependent type 2 diabetes mellitus * Patient is on 30 units of glargine daily at home with regular insulin * Glucose has been in the mid 100s Plan: * Will continue degludec 20 units daily * Step 3 insulin sliding scale #History of hypothyroidism * TSH 6, free T4 normal Plan: * Continue p.o. levothyroxine 75 mcg #Chronic normocytic anemia * Consider anemia of chronic disease in the presence of CKD * Hemoglobin 9.6 up from 8.6 * No signs of bleeding Plan: * Monitor H&H with daily labs #ICU acquired weakness * Per the ICU team, patient has had symmetrical limb weakness with lack of a clear cause due to a neuromuscular dysfunction like a stroke or spinal cord injury Plan: * Will continue physical therapy #Goals of care * Patient is severely deconditioned and has had difficulty weaning from BiPAP without desatting or having increased work of breathing Plan: * Will plan for goals of care discussion with the patient surrogate decision maker Hospital Maintenance: DVT ppx: Eliquis 2.5 mg twice daily GI ppx: IV Protonix 40 mg daily Diet: NG tube in place, Nepro at 20 mL/h with a goal of 45 mL/h IV lines: Right IJ temporary dialysis catheter Code status: DNR Dispo: Patient is having difficulty weaning from BiPAP and is extremely deconditioned. Will plan for goals of care discussion with surrogate decision maker regarding comfort care or hospice. Patient was seen and discussed with my attending physician Dr. Gruber and my senior resident Dr. Immanuel LOPES PGY-2. Nigel Nolen DO PGY-1. Attending Provider Attestation/Addendum I Haydee Gruber MD reviewed the note and agree with the resident's assessment & plan with modifications/additions/exceptions as below. I have personally reviewed labs, imaging, home meds/prior records, examined the patient, formulated and discussed management plan with the IM team. An 80-year-old female with history of AF, HFpEF, sick sinus syndrome s/p PPM, PAD admitted with shock leading to ARDS secondary to pneumonia and UTI. 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 Patient has been extubated following prolonged hospitalization however has been extubated currently requiring BiPAP therapy currently with significant leukocytosis, KRYSTAL with creatinine 1.7. CXR did reveal congestion and effusion. Continue antibiotic therapy with linezolid, add cefepime for gram-negative coverage and continue BiPAP therapy as tolerated. Repeat CT chest to evaluate for potential empyema/pulmonary abscess formation. Continue diuretics with Bumex with a net negative fluid balance of 1.5-2 L. Continue Eliquis, vascular surgery is on board for common [place] artery thrombosis. Patient has multiple comorbidities along with poor functional status and following prolonged hospitalization has guarded prognosis. Patient's daughter and partner who also holds advanced directive is contacted and goals of care discussion is to be held today. Will continue supportive care.
[2025-05-22 12:19] LABS: Albumin, Serum 3.5 gm/dL (3.4-4.8); Anion Gap 9 (7-16); BUN/Creatinine Ratio 21 Ratio (12-20); Blood Urea Nitrogen 34 mg/dL (9-23); Calcium 8.5 mg/dL (8.3-10.6); Calcium (Corrected) 8.9 mg/dL (8.5-10.1); Carbon Dioxide 27.3 mMol/L (20.0-31.0); Chloride 110 mMol/L (98-107); Creatinine (Component) 1.6 mg/dL (0.6-1.3); Estimated Creatinine Clearance 35.6 mL/min (>60); Glucose 138 mg/dL (74-106); Osmolality,Calculated 300 (275-295); Phosphorous 3.3 mg/dL (2.4-5.1); Potassium 3.7 mMol/L (3.4-5.1); Sodium 146 mMol/L (136-145); eGFR 32 See Note
[2025-05-22] MEDS: LABETALOL INJ 5 MG/ML VIAL 20 ML 10 MG IVP (14:05)
--- NOTE | 2025-05-22 14:10 | PC.NURSE ---
/AT 1310, pt taken to CT with RT and ROAD MAKER on BIPAP, pt kept on Bipap per Dr roca and team at bedside, per md roca, hold water flush, hold medications while on bipap, at 1321, BIPAP removed at pt placed on 8l oxy mask, attempt made to give patient po meds unable as BAGGAGE CHECKER called, pt increased WOB and placed back on BIPAP, at 1347, RTT called for pt increased WOB, BP 189/132 , RR 21, hr 78. o2 99%, per MD roca, hold NG meds until after bipap
--- NOTE | 2025-05-22 15:02 | PC.RT ---
Addendum entered by Rozina Elizalde RCP 05/22/25 15:05: Patient lasted 10 minutes on HFNC before taking it off and desatting. Sitter now at bedside. Original Note: called to patient bedside , arrived at 0850 with patient in distress. MD Gonzalez told RN to placed patient on Bipap. RT placed patient back on Bipap on ordered settings. Lilian
--- NOTE | 2025-05-22 15:10 | PC.RT ---
Patient taken to CT on Bipap with ordered settings, once arrived back, per MD order to take BIPAP off and place patient on oxymask for PO meds and giving patient a break. Patient placed on 8L oxymask at 1321 with spo2 98%, HR76 and RR22. at 1346 Rapid Response called for respiratory distress, patient placed back on BIPAP at this time. MD Tomlin ordered to keep BIPAP on for about an hour and placed patient on oxymask and repeat ABG.
--- NOTE | 2025-05-22 15:25 | PC.SS ---
GARDEN [employer]ER contacted patient's surrogate medical decision maker, Daja Virgen; to schedule GOC discussion. Daja stated she will be at bedside at approximately 4:00 pm. G[address]EN LABOURER updated Dr. Gambino.
[2025-05-22] MEDS: LINEZOLID 600 MG TABLET GT ×2 (16:44→22:17)
[2025-05-22] MEDS: APIXABAN 2.5 MG TABLET NG ×2 (16:49→22:18)
[2025-05-22] MEDS: AMIODARONE HCL 200 MG TABLET NG (16:50)
--- NOTE | 2025-05-22 17:46 | PC.NURSE ---
at 1615 marry Katz and maikel at bedside for goals of care, pt to be hospice care, dr tuttle made aware of pt medications and pt on bipap, per dr tuttle only admin amiodarone, linzolid, and eliquis not given all other am medications,
--- NOTE | 2025-05-22 17:57 | PC.NURSE ---
dr ko notified of pt on bipap wanting bipap off and pt oxygen sat. at 92% and pt increased WOB, per dr ko keep pt on bipap for 30 minutes
[2025-05-22] MEDS: HYDROmorphone INJ 2 MG/ML VIAL 0.5 MG IVP ×2 (18:22→22:56)
--- NOTE | 2025-05-22 20:23 | EVENTNT_ITS ---
Documentation for date of: 05/22/25 Event Note Event Note: At approximately 6:50 PM, we were called to the room to assess the patient?s medical decision-making capacity in the presence of a public health training assistant. The designated legal medical decision-maker, Daja, was also present at bedside. Unfortunately, due to the patient's current mental status and altered condition while on BiPAP, we are unable to medically clear her as capable of serving as the legal decision-maker at this time. At this time, Daja, wishes to continue with hospice. Primary team orders for hospice have already been initiated. Dr. Geller, along with ICU charge nurse Vaibhav were present through out and thorough explanation was given. Case was discussed with attending physician, Dr. Geller. Markie Foote, PGY II This document was transcribed using voice recognition technology. Minor inaccuracies may be present.
--- NOTE | 2025-05-22 20:39 | PD.RESEVENT ---
Documentation for date of: 05/22/25 Event Note Event Note: Rapid response was called around 8:30 in the morning for oxygen desaturation. The patient was placed on BiPAP and given 1 dose of Bumex 1 mg as well as 0.25 mg of IV Dilaudid. The patient's respiratory status, including her oxygen saturation and work of breathing, improved. Patient was seen and discussed with my attending physician Dr. Yasmani LOPES and my senior resident Dr. Immanuel LOPES PGY-2. Nigel Nolen DO PGY-1.
--- NOTE | 2025-05-22 20:44 | PD.RESEVENT ---
Documentation for date of: 05/22/25 Event Note Event Note: Rapid response was called around 2 PM for increased work of breathing. At the time the patient was on oxy mask and was switched to BiPAP. Another 0.25 mg IV dose of morphine was given and the patient's work of breathing improved. Patient was seen and discussed with my attending physician Dr. Yasmani LOPES and my senior resident Dr. Immanuel LOPES PGY-2. Nigel Nolen DO PGY-1.
--- NOTE | 2025-05-22 20:46 | PD.RESEVENT ---
Documentation for date of: 05/22/25 Event Note Event Note: At about 4 PM on 05/22/2025, a goals of care discussion was had with the patient's legal surrogate decision maker Daja in person, and the patient's granddaughter Idalia over the phone. Daja and Idalia were briefed about the patient's condition and further options including comfort care and hospice care given that the patient is severely deconditioned and weak to the point where she is nearly unable to withstand the most intensive treatment. The patient initially stated that she wished to go home on hospice care so that decision was made. Roughly 2 hours later, the patient was noted to be on BiPAP and saturating at 90% with increased work of breathing. The patient was able to follow commands and accurately shake her head yes or no but at this time was unable to accurately shake her head yes or no and only followed a few commands. A second goals of care discussion was had with Daja who opted for comfort care but did not want to start comfort care until she returned to the hospital after obtaining unspecified documents from home. Because the patient could not shake her head yes or no or write on a piece of paper due to weakness, it was determined that the patient could not prove her capacity to make decisions. Therefore, we will await Daja's return to the hospital for further discussions about whether or not to start comfort care. Patient was seen and discussed with my attending physician Dr. Yasmani LOPES and my senior resident Dr. Immanuel LOPES PGY-2. Nigel Nolen DO PGY-1.
--- NOTE | 2025-05-22 21:22 | PC.NURSE ---
called to room by RN due to concern of the patients main point of contact having an argument with the patients daughter about notary personnel in room. verified with all parties of their identity, notified of darnell in room to obtain signatures from the patient. Based on MD Geller assessment, pt is not alert and oriented to make legal decisions. Per darnell Croft, legally, all he requires is that the patient can nod yes or no to questions, provide a signature and a fingerprint. Notified supervisor orchard, which then notified [facility] and contacted Ritu from social media developer. Per social media developer, [facility] personnel is allowed to obtain signatures based on their assessment of the patient.
[2025-05-22] MEDS: ASCORBIC ACID 250 MG TABLET 500 MG NG (22:16)
[2025-05-22] MEDS: ATORVASTATIN CALCIUM 10 MG TABLET NG (22:16)
[2025-05-22 22:44] LABS: Base Excess 1 (-3-3); HCO3 27 mEq/L (20-26); Inspired Oxygen, FIO2 30 %; O2 Saturation 83 % (91-98); PCO2 53 mmHg (32.0-48.0); pH, Arterial 7.32 (7.35-7.45)
[2025-05-22 22:45] LABS: Allen Test Performed/OK; Puncture Site Right Radial
[2025-05-22 22:47] LABS: PO2 52 mmHg (83-108)
[2025-05-23] VITALS (15 sets, daily range): BP systolic 155–167; BP diastolic 71–99; PULSE 63–80; RESP 12–32; TEMP 35.9–36.2; O2SAT 93–99; BMI 41.4
[2025-05-23] MEDS: ALBUTEROL/IPRATROPIUM (Duoneb) RT SOL 3 ML NEBU INH ×3 (00:49→11:55)
--- NOTE | 2025-05-23 03:13 | PC.NURSE ---
unable to assess if pt is oriented and comprehension ability, pt is on Bipap, lethargic, showing increased work of breathing, on assessment pt was unable to state her name, last name, place, date. Pt opens her eyes to speech/touch. Pt was able to communicate that she was in pain by nodding her head x1. Pt's daughter was at bedside during shift change report, a few minutes after getting report, press writer was called to pt's room. pt's daughter stated that pt's main point of contact, Daja, wast trying to get the patient to sign some documents. Daja stated that she is the patient's intensive care medicine specialist/main point of contact, she arrived to the floor with a man, per caregiver statement this man is a notary. Notary sated that he was here to get a signature from the pt. Pt's daughter and caregiver/main point of contact got into an argument, daughter left. Pt has a sitter, after daughter left, caregiver and the man (reggieary), were seeing (by sitter) attempting to get the patient to sign some documents. Sitter called press writer to inform the situation, press writer stood outside pt's room for couple of minutes, caregiver and notary gave the patient the tissues box and asked the pt if she could write her name on it. Pt did not keep her eyes open for too long, pt's caregiver started shaking pt on her chest to wake her up and they kept trying to get the patient's signature. This situation extended till after 9 pm. package line operator was informed. informed.
--- NOTE | 2025-05-23 05:02 | PC.NURSE ---
Okay to give [address] Bergman.
[2025-05-23 05:21] LABS: Lactate (Lactic Acid) 0.8 mMol/L (0.4-2.0)
[2025-05-23 05:45] LABS: B-Type Natriuretic Peptide 201 pg/mL (0-100)
[2025-05-23] MEDS: LEVOTHYROXINE SODIUM 25 MCG TABLET 75 MCG NG (05:48)
[2025-05-23 05:54] LABS: C-Reactive Protein 3.3 mg/dL (0.0-0.9); Magnesium 2.3 mg/dL (1.6-2.6); Phosphorous 5.0 mg/dL (2.4-5.1); Procalcitonin 0.24 ng/ml (0.0-0.49)
--- NOTE | 2025-05-23 08:24 | PC.SS ---
SCHOOL HEALTH ASSISTANT called 05/22 at apx 850pm regarding the patient's significant other, Daja, having a notary at the bedside of the patient attempting to have legal documentation signed to turn over the deed to her home. Staff was advised to have a medical competency assessment completed by the treating physician and RN caring for the patient, and document in the chart. The notary, Lang, was advised that neither the RN or MD felt the patient had capacity to make medical decisions in her current state. Despite this, Daja pushed forward and the Notary stated that legally, all he had to confirm was the patient having the ability to nod yes or no. SCHOOL HEALTH ASSISTANT advised that an APS report would be completed on 05/23, which it has. The APS report has been completed with the needed information and sent off per required protocol. Ritu Lamar, SCHOOL HEALTH ASSISTANT [id number]
[2025-05-23] MEDS: THIAMINE INJ 100 MG/ML VIAL 2 ML IVP (08:35)
[2025-05-23] MEDS: CEFEPIME INJ 1 GM in SODIUM CHLORIDE 0.9% (Popper) 50 ML IV (08:35)
[2025-05-23] MEDS: BUMETANIDE INJ 0.25 MG/ML VIAL 4 ML 1 MG IVP (08:36)
[2025-05-23] MEDS: APIXABAN 2.5 MG TABLET NG (08:37)
[2025-05-23] MEDS: AMIODARONE HCL 200 MG TABLET NG (08:38)
[2025-05-23] MEDS: MULTIVITAMINS TABLET 1 TAB NG (08:39)
[2025-05-23] MEDS: LINEZOLID 600 MG TABLET GT (08:39)
[2025-05-23] MEDS: ASCORBIC ACID 250 MG TABLET 500 MG NG (08:40)
[2025-05-23] MEDS: ZINC SULFATE 220 MG CAPSULE NG (08:40)
--- NOTE | 2025-05-23 08:40 | PC.SS ---
COBBLER APPRENTICE received request from resident to contact patient's surrogate medical decision maker, Daja Virgen ; to discuss implementing comfort care measures at present time. Patient's surrogate medical decision maker informed COBBLER APPRENTICE that comfort measures to be implemented upon surrogate medical decision maker being present at bedside. Per patient's surrogate medical decision maker will arrive at patient's bedside within 1 hour. COBBLER APPRENTICE updated resident. Bedside nurse also updated on plan to transition the patient to comfort care upon Daja Virgen's arrival.
[2025-05-23] MEDS: LOSARTAN POTASSIUM 25 MG TABLET 50 MG NG (08:41)
[2025-05-23] MEDS: ESCITALOPRAM OXALATE 10 MG TABLET 20 MG NG (08:42)
--- NOTE | 2025-05-23 08:55 | PC.SS ---
SUPPLIES PACKER made verbal report to APS worker Marisela Mata and faxed report. Request made to advise APS of the patients discharge or outcome at the end of this admission. - Ritu Lamar, SUPPLIES PACKER [id number]
--- NOTE | 2025-05-23 09:12 | ESCONSULT_ITS ---
<Statement entered by Shorty Trinh MD - 05/26/25 09:27> pt seen with resident. all findings confirmed. prognosis seems poor. agree with comfort care if that is the plan HPI Data of Consult Requesting Physician: José Luis Gallo MD Admitting Provider: Ad Geller MD Attending Provider: José Luis Gallo MD Primary Care Provider: Lang Sandoval MD Consult Narrative History of present illness: The patient is an 80-year-old female with significant past medical history of HFpEF, A-fib on Eliquis, bradycardia s/p pacemaker placement in 2022, hypothyroidism, chronic back pain, insulin-dependent diabetes mellitus type 2, and hypertension who was brought in by ambulance from home on 05/10/2025 with worsening of SOB. Initially, her blood pressure was 75/50, HR 102, temperature 105.1, and was admitted to ICU for septic shock secondary to community-acquired pneumonia. The patient was intubated on 05/10/2025, and extubated on 05/16/2025. She was initially placed on cefepime and azithromycin. The patient was downgraded to telemetry unit on 05/21/2025. The patient's white count trended up from 05/16/2025 to 05/18/2025, and after that down trended, and required continuous oxygen support. Later patient was treated in the line of ventilator associated pneumonia, and was placed on linezolid. During my evaluation, the patient's blood pressure was 155/71, pulse 63, RR 28, saturating 98% on BiPAP with FiO2 50%. No recent fevers were noted. WBC improving. Labs done today revealed ABG with pH 7.32, pO2 52, CRP 3.3, BNP 201, which was [address] chest revealed diffuse right lung pneumonia, and a small right pleural effusion. PMH: As mentioned above Surgical history: Hysterectomy, cholecystectomy, 3 back surgeries Social history: Smoked 1 pack/day for many years quit 3 months ago, denied alcohol use, retired and single Family history: Unremarkable Medications: Amiodarone, amlodipine, Eliquis, atorvastatin, bupropion, escitalopram, gabapentin, hydromorphone, Lantus, levothyroxine, Reglan, pioglitazone, trazodone, montelukast Allergies: Sulfa drug Despite the above interventions, her oxygen saturation continued to trend down, and infectious disease consultation was done for further management of pneumonia. cc:: cc: José Luis Gallo MD Review of Systems Review of Systems ROS Unobtainable: unobtainable due to mental status Exam Vital Signs Temp Pulse Resp BP Pulse Ox O2 Del Method O2 Flow Rate 96.7 F L 71 29 H 155/71 H 96 BiPAP 8 05/23/25 04:00 05/23/25 08:41 05/23/25 07:55 05/23/25 08:41 05/23/25 07:55 05/23/25 04:00 05/23/25 04:00 FiO2 35 05/23/25 07:55 Narrative Exam General: No acute distress, Alert and Oriented x 0, struggling to breathe HEENT: Moist mucous membranes, oropharynx clear Neck: Supple, No masses, No JVD CVS: S1S2 Regular rate and rhythm, No murmurs, rubs or gallops Lungs: Bilaterally decreased breath sounds, wheezing present, mild rhonchi present, saturating 98% on BiPAP Abd: Soft, NT/ND, +BS, no organomegaly Ext: 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, decreased peripheral pulses on right lower extremity, Skin: No rash Psych: Unobtainable Results Labs 05/22/25 04:20 05/22/25 11:38 Labs: BMP 05/22/25 11:38 Sodium 146 H Potassium 3.7 Chloride 110 H Carbon Dioxide 27.3 BUN 34 H Creatinine 1.6 H Glucose 138 H Calcium 8.5 Liver Function 05/22/25 Range/Units 11:38 Albumin 3.5 (3.4-4.8) gm/dL ABG Interpretation ABG results: 05/09/25 05/10/25 05/11/25 23:08 07:18 03:56 ABG pH 7.29 L 7.25 L 7.26 L ABG pCO2 41 49 H 41 ABG pO2 133 H 95 D 68 L D ABG HCO3 20 21 19 L ABG O2 Saturation 97 95 92 ABG Base Excess -7 L -6 L -8 L VBG pH VBG pCO2 VBG pO2 VBG Base Excess 05/12/25 05/13/25 05/14/25 04:09 04:02 04:18 ABG pH 7.23 L 7.32 L 7.38 ABG pCO2 44 43 34 ABG pO2 78 L 71 L 121 H D ABG HCO3 19 L 22 20 ABG O2 Saturation 94 92 97 ABG Base Excess -8 L -4 L -5 L VBG pH VBG pCO2 VBG pO2 VBG Base Excess 05/14/25 05/15/25 05/15/25 13:15 04:14 05:10 ABG pH 7.41 7.38 7.41 ABG pCO2 33 40 35 ABG pO2 113 H 48 L* D 89 D ABG HCO3 21 23 23 ABG O2 Saturation 98 82 L 98 ABG Base Excess -4 L -2 -2 VBG pH VBG pCO2 VBG pO2 VBG Base Excess 05/16/25 05/18/25 05/19/25 04:04 09:32 06:48 ABG pH 7.43 7.42 ABG pCO2 36 38 ABG pO2 84 74 L ABG HCO3 24 25 ABG O2 Saturation 96 93 ABG Base Excess 0 0 VBG pH 7.49 VBG pCO2 32 L VBG pO2 126 H VBG Base Excess 2 05/22/25 05/22/25 05/22/25 04:00 05:15 22:36 ABG pH 7.29 L D 7.40 D 7.32 L ABG pCO2 56 H D 44 D 53 H ABG pO2 197 H D 151 H D 52 L* D ABG HCO3 27 H 27 H 27 H ABG O2 Saturation 98 98 83 L ABG Base Excess -1 2 1 VBG pH VBG pCO2 VBG pO2 VBG Base Excess Quality Measures Quality Measures VTE prophylaxis, sepsis Current suspected stage: ruled out Possible source: pulmonary Blood cultures ordered: yes Antibiotic ordered: No and none Advance care planning discussed with:: other (grand daughter) Medications Home Medications and Allergies Home Medications ?Medication ?Instructions ?Recorded ?Confirmed ?Type metoclopramide HCl 10 mg tablet 10 mg PO BID 02/28/18 05/10/25 History levothyroxine 75 mcg tablet 75 mcg PO QDAY 02/14/23 History amiodarone 200 mg tablet 200 mg PO QDAY 04/10/2302/26 History bupropion HCl 200 mg tablet,12 hr 200 mg PO BID 05/10/25 History sustained-release escitalopram oxalate 20 mg tablet 20 mg PO QDAY 05/10/25 History apixaban 2.5 mg tablet (Eliquis) 2.5 mg PO BID 4 05/10/25 History pioglitazone 15 mg tablet (Actos) 15 mg PO QDAY 05/10/25 History atorvastatin 10 mg tablet 10 mg PO QDAY 04/15/2405/10 History insulin glargine 100 unit/mL (3 30 unit subcut QAM 08/2705/10/25 History mL) subcutaneous pen (Lantus Solostar U-100 Insulin) trazodone 150 mg tablet 150 mg PO HS PRN insomnia 05/10/25 History carvedilol 3.125 mg tablet 3.125 mg PO QDAY 05/10/25 0 05/10/25 History hydromorphone 8 mg tablet 8 mg PO Q6H PRN pain 5 05/10/25 History insulin regular human 100 unit/mL 1 sliding scale dose subcut ACHS 05/10/25 05/10/25 History (3 mL) subcutaneous pen (Novolin R FlexPen) losartan 50 mg tablet 50 mg PO QDAY 05/10/2505/10 History Allergies Allergy/AdvReac Type Severity Reaction Status Date / Time Sulfa (Sulfonamide Allergy Severe ITCHY Verified 05/09/25 22:07 Antibiotics) tomato Allergy Severe Rash Verified 05/09/25 22:07 Visit Medications Acetaminophen (Acetaminophen 325 Mg Tablet) 650 mg PO Q4HR PRN PRN Reason: PAIN SCALE 1-3 (mild Stop: 06/09/25 04:12 Last Admin: 05/10/25 21:34 Dose: 650 mg Acetaminophen (Acetaminophen Supp 650 Mg Supp) 650 mg LA Q4HR PRN PRN Reason: PAIN SCALE 1-3 (mild Stop: 06/09/25 04:12 Last Admin: 05/19/25 05:00 Dose: 650 mg Hydrocodone Bitart/Acetaminophen (Hydrocodone/Apap 5/325 Tablet) 1 tab NG Q6HR PRN PRN Reason: PAIN SCALE 4-10(Mod-Sev Stop: 05/25/25 06:55 Al Hydrox/Mg Hydrox/Simethicone (Mg Hyd/Al Hyd/Jackeline (Maalox Reg) Susp 30 Ml Udc) 30 ml PO Q4HR PRN PRN Reason: Heartburn or Upset Stomach Stop: 06/09/25 04:12 Albuterol/Ipratropium (Albuterol/Ipratropium (Duoneb) Rt Suma 3 Ml Nebu) 3 ml INH Q6HRRT YURY Stop: 06/18/25 00:59 Last Admin: 05/23/25 07:55 Dose: 3 ml Amiodarone HCl (Amiodarone Hcl 200 Mg Tablet) 200 mg NG QDAY YURY Stop: 06/09/25 08:59 Last Admin: 05/23/25 08:38 Dose: 200 mg Amlodipine Besylate (Amlodipine Besylate 5 Mg Tablet) 10 mg NG QDAY [facility] Stop: 06/18/25 13:14 Last Admin: 05/23/25 08:38 Dose: 10 mg Apixaban (Apixaban 2.5 Mg Tablet) 2.5 mg NG BID [facility] Stop: 06/19/25 15:39 Last Admin: 05/23/25 08:37 Dose: 2.5 mg Artificial Tears (Artificial Tears 225 Drop/15 Ml Btl) 0 drop BOTH EYES PRN PRN PRN Reason: TO KEEP EYES MOIST Stop: 06/12/25 14:51 Last Admin: 05/16/25 23:58 Dose: 2 drops Ascorbic Acid (Ascorbic Acid 250 Mg Tablet) 500 mg NG BID YURY Stop: 06/16/25 08:59 Last Admin: 05/23/25 08:40 Dose: 500 mg Atorvastatin Calcium (Atorvastatin Calcium 10 Mg Tablet) 10 mg NG HS YURY Stop: 06/18/25 20:59 Last Admin: 05/22/25 22:16 Dose: 10 mg Bumetanide (Bumetanide Inj 0.25 Mg/Ml Vial 4 Ml) 1 mg IVP BID YURY Stop: 06/21/25 20:59 Last Admin: 05/23/25 08:36 Dose: 1 mg Bupropion HCl (Bupropion Hcl 100 Mg Tablet) 200 mg NG BID [facility] Stop: 06/18/25 13:14 Last Admin: 05/23/25 08:42 Dose: 200 mg Carvedilol (Carvedilol 3.125 Mg Tablet) 6.25 mg NG BID [facility] Stop: 06/19/25 08:59 Last Admin: 05/23/25 08:40 Dose: 6.25 mg Dextrose (Dextrose 50%-Water Inj 50 Ml Syringe) 25 ml IV Q15MIN PRN PRN Reason: BG 50-70 responsive npo pt Stop: 06/09/25 04:26 Dextrose (Dextrose 50%-Water Inj 50 Ml Syringe) 50 ml IV Q15MIN PRN PRN Reason: BG <50 OR BG <70 & pt unresponsive Stop: 06/09/25 04:26 Escitalopram Oxalate (Escitalopram Oxalate 10 Mg Tablet) 20 mg NG QDAY [facility] Stop: 06/09/25 08:59 Last Admin: 05/23/25 08:42 Dose: 20 mg Glucagon (Glucagon Inj 1 Mg Vial) 1 mg IM Q15MIN PRN PRN Reason: BG <70, and no IV access Heparin Sodium (Porcine) (Heparin Sod Inj 1000 Unit/Ml Vial 10 Ml) 2,600 unit INDWELLCAT PRN PRN PRN Reason: DIALYSIS Stop: 06/02/25 14:07 Hydromorphone HCl (Hydromorphone Inj 2 Mg/Ml Vial) 0.5 mg IVP Q4HR PRN PRN Reason: BREAKTHROUGH PAIN 4-10 Stop: 05/25/25 08:08 Last Admin: 05/22/25 22:56 Dose: 0.5 mg Cefepime HCl 1 gm/ Sodium (Chloride) 50 mls @ 100 mls/hr IV Q12HR [facility] Stop: 05/29/25 10:49 Last Admin: 05/23/25 08:35 Dose: 100 mls/hr Insulin Degludec (Insulin Degludec 5 Unit/0.05 Ml (Per 5 Units)) 10 unit SC QDAY [facility] Stop: 06/21/25 09:59 Last Admin: 05/23/25 09:04 Dose: Not Given Insulin Human Lispro (Insulin Lispro (Admelog) 1 Unit/0.01 Ml Unit) 0 unit SC Q6HR [facility]; Protocol Stop: 06/09/25 11:59 Last Admin: 05/23/25 05:25 Dose: Not Given Labetalol HCl (Labetalol Inj 5 Mg/Ml Vial 20 Ml) 10 mg IVP Q4H PRN PRN Reason: Hypertensive Emergency Stop: 06/21/25 15:32 Levothyroxine Sodium (Levothyroxine Sodium 25 Mcg Tablet) 75 mcg NG ACBR YURY Stop: 06/19/25 13:14 Last Admin: 05/23/25 05:48 Dose: 75 mcg Linezolid (Linezolid 600 Mg Tablet) 600 mg GT BID [facility]; Protocol Stop: 05/27/25 11:29 Last Admin: 05/23/25 08:39 Dose: 600 mg Losartan Potassium (Losartan Potassium 25 Mg Tablet) 50 mg NG QDAY [facility] Stop: 06/15/25 13:29 Last Admin: 05/23/25 08:41 Dose: 50 mg Magnesium Hydroxide (Milk Of Magnesia Susp 30 Ml Udc) 30 ml PO QDAY PRN PRN Reason: CONSTIPATION Stop: 06/09/25 04:12 Multivitamins (Multivitamins Tablet) 1 tab NG QDAY [facility] Stop: 06/16/25 08:59 Last Admin: 05/23/25 08:39 Dose: 1 tab Ondansetron HCl (Ondansetron Inj 2 Mg/Ml Inj 2 Ml) 4 mg IVP Q6HR PRN; Protocol PRN Reason: NAUSEA OR VOMITING Stop: 06/19/25 10:56 Last Admin: 05/20/25 18:26 Dose: 4 mg Pantoprazole Sodium (Pantoprazole Inj 40 Mg Vial) 40 mg IVP QDAY [facility] Stop: 06/09/25 10:59 Last Admin: 05/23/25 08:37 Dose: 40 mg Pharmacy Consult (Pharmacy Renal Dose Adjustment 1 Ea) 1 each XX PRN PRN PRN Reason: CONSULT Stop: 06/16/25 08:39 Sodium Chloride (Saline Nasal 45 Ml Btl) 1 spray NASAL PRN PRN PRN Reason: CONGESTION Stop: 06/16/25 07:34 Thiamine HCl (Thiamine Inj 100 Mg/Ml Vial 2 Ml) 100 mg IVP QDAY [facility] Stop: 06/17/25 15:14 Last Admin: 05/23/25 08:35 Dose: 100 mg Zinc Sulfate (Zinc Sulfate 220 Mg Capsule) 220 mg NG QDAY [facility] Stop: 05/31/25 08:59 Last Admin: 05/23/25 08:40 Dose: 220 mg Discontinued Medications Acetaminophen (Acetaminophen Supp 650 Mg Supp) 650 mg LA X1 ONE Stop: 05/09/25 22:59 Last Admin: 05/09/25 23:11 Dose: 650 mg Hydrocodone Bitart/Acetaminophen (Hydrocodone/Apap 5/325 Tablet) 1 tab PO Q6HR PRN PRN Reason: PAIN SCALE 4-10(Mod-Sev Stop: 05/25/25 06:55 Last Admin: 05/21/25 20:18 Dose: 1 tab Albuterol (Albuterol Rt 2.5 Mg/0.5 Ml Nebu) 10 mg INH X1 ONE Stop: 05/09/25 22:46 Last Admin: 05/09/25 23:39 Dose: 10 mg Albuterol/Ipratropium (Albuterol/Ipratropium (Duoneb) Rt Suma 3 Ml Nebu) 3 ml INH X1 ONE Stop: 05/18/25 16:21 Last Admin: 05/18/25 16:26 Dose: 3 ml Alteplase, Recombinant (Alteplase Recomb Inj 2 Mg Vial) 2 mg INDWELLCAT X1 ONE Stop: 05/19/25 07:42 Last Admin: 05/19/25 09:14 Dose: 2 mg Amiodarone HCl (Amiodarone Hcl 200 Mg Tablet) 200 mg PO QDAY [facility] Stop: 06/09/25 08:59 Last Admin: 05/21/25 08:34 Dose: 200 mg Amiodarone HCl (Amiodarone Hcl 200 Mg Tablet) 200 mg NG X1 ONE Stop: 05/22/25 12:31 Last Admin: 05/22/25 16:50 Dose: 200 mg Amlodipine Besylate (Amlodipine Besylate 5 Mg Tablet) 10 mg PO QDAY [facility] Stop: 06/18/25 13:14 Last Admin: 05/21/25 08:36 Dose: 10 mg Amlodipine Besylate (Amlodipine Besylate 5 Mg Tablet) 10 mg NG X1 ONE Stop: 05/22/25 12:31 Last Admin: 05/22/25 17:07 Dose: Not Given Apixaban (Apixaban 2.5 Mg Tablet) 2.5 mg PO BID [facility] Stop: 06/09/25 08:59 Last Admin: 05/10/25 20:14 Dose: 2.5 mg Apixaban (Apixaban 2.5 Mg Tablet) 2.5 mg PO BID [facility] Stop: 06/19/25 15:34 Last Admin: 05/20/25 20:10 Dose: Not Given Apixaban (Apixaban 2.5 Mg Tablet) 2.5 mg PO BID [facility] Stop: 06/19/25 15:39 Last Admin: 05/21/25 20:31 Dose: 2.5 mg Apixaban (Apixaban 2.5 Mg Tablet) 2.5 mg NG X1 ONE Stop: 05/22/25 12:31 Last Admin: 05/22/25 16:49 Dose: 2.5 mg Ascorbic Acid (Ascorbic Acid 250 Mg Tablet) 500 mg PO BID [facility] Stop: 06/16/25 08:59 Last Admin: 05/22/25 09:19 Dose: Not Given Ascorbic Acid (Ascorbic Acid 250 Mg Tablet) 500 mg NG X1 ONE Stop: 05/22/25 12:31 Last Admin: 05/22/25 17:07 Dose: Not Given Atorvastatin Calcium (Atorvastatin Calcium 10 Mg Tablet) 10 mg PO HS [facility] Stop: 06/18/25 20:59 Last Admin: 05/21/25 20:17 Dose: 10 mg Bumetanide (Bumetanide Inj 0.25 Mg/Ml Vial 4 Ml) 2 mg IVP X1 ONE Stop: 05/13/25 08:10 Last Admin: 05/13/25 09:03 Dose: 2 mg Bumetanide (Bumetanide Inj 0.25 Mg/Ml Vial 4 Ml) 2 mg IVP X1 ONE Stop: 05/14/25 07:39 Last Admin: 05/14/25 08:26 Dose: 2 mg Bumetanide (Bumetanide Inj 0.25 Mg/Ml Vial 4 Ml) 1 mg IVP X1 ONE Stop: 05/20/25 07:59 Last Admin: 05/20/25 08:29 Dose: 1 mg Bumetanide (Bumetanide Inj 0.25 Mg/Ml Vial 4 Ml) 1 mg IVP X1 ONE Stop: 05/21/25 07:20 Last Admin: 05/21/25 08:36 Dose: 1 mg Bumetanide (Bumetanide Inj 0.25 Mg/Ml Vial 4 Ml) 1 mg IVP QDAY [facility] Stop: 06/21/25 08:59 Last Admin: 05/22/25 08:40 Dose: 1 mg Bumetanide (Bumetanide Inj 0.25 Mg/Ml Vial 4 Ml) 1 mg IVP X1 ONE Stop: 05/22/25 03:59 Last Admin: 05/22/25 04:07 Dose: 1 mg Bupropion HCl (Bupropion Hcl 100 Mg Tablet) 200 mg PO BID [facility] Stop: 06/18/25 13:14 Last Admin: 05/21/25 20:17 Dose: 200 mg Carvedilol (Carvedilol 3.125 Mg Tablet) 3.125 mg PO QDAY [facility] Stop: 06/14/25 14:14 Last Admin: 05/15/25 15:05 Dose: 3.125 mg Carvedilol (Carvedilol 3.125 Mg Tablet) 3.125 mg PO BID [facility] Stop: 06/14/25 20:59 Last Admin: 05/19/25 21:45 Dose: 3.125 mg Carvedilol (Carvedilol 3.125 Mg Tablet) 6.25 mg PO BID [facility] Stop: 06/19/25 08:59 Last Admin: 05/21/25 20:17 Dose: 6.25 mg Carvedilol (Carvedilol 3.125 Mg Tablet) 6.25 mg NG X1 ONE Stop: 05/22/25 12:31 Last Admin: 05/22/25 17:08 Dose: Not Given Citric Acid/Sodium Citrate (Citric Acid/Sodium Citr 15 Ml Udc (Bicitra)) 30 ml NG BID [facility] Stop: 06/13/25 08:59 Last Admin: 05/17/25 10:29 Dose: Not Given Dexamethasone Sodium Phosphate (Dexamethasone Sod Phos Inj 4 Mg/Ml Vial) 8 mg IV X1 ONE; Protocol Stop: 05/17/25 07:58 Last Admin: 05/17/25 09:56 Dose: 8 mg Epinephrine (Epinephrine Rt Suma 0.5 Ml Nebu) 0.5 ml INH Q10MIN PRN PRN Reason: STRIDOR Last Admin: 05/17/25 08:28 Dose: 0.5 ml Epoetin Shaquille (Epoetin Shaquille-Epbx Inj 10,000 Unit/Ml Vial (Non-Esrd)) 10,000 unit SC X1 ONE Stop: 05/12/25 13:31 Last Admin: 05/12/25 13:19 Dose: 10,000 unit Escitalopram Oxalate (Escitalopram Oxalate 10 Mg Tablet) 20 mg PO QDAY [facility] Stop: 06/09/25 08:59 Last Admin: 05/21/25 08:33 Dose: 20 mg Escitalopram Oxalate (Escitalopram Oxalate 10 Mg Tablet) 20 mg NG X1 ONE Stop: 05/22/25 12:31 Last Admin: 05/22/25 17:08 Dose: Not Given Etomidate (Etomidate Inj 2 Mg/Ml Vial 10 Ml) 30 mg IVP X1 ONE Stop: 05/09/25 22:17 Last Admin: 05/09/25 22:18 Dose: 30 mg Fentanyl Citrate (Fentanyl Cit Inj 50 Mcg/Ml Amp 2ml) 50 mcg IVP X1 ONE Stop: 05/14/25 09:44 Last Admin: 05/14/25 09:53 Dose: 50 mcg Fentanyl Citrate (Fentanyl Cit Inj 50 Mcg/Ml Amp 2ml) 50 mcg IVP X1 ONE Stop: 05/14/25 21:00 Last Admin: 05/14/25 21:11 Dose: 50 mcg Fentanyl Citrate (Fentanyl Cit Inj 50 Mcg/Ml Amp 2ml) 50 mcg IVP X1 ONE Stop: 05/14/25 21:43 Last Admin: 05/14/25 21:51 Dose: 50 mcg Fentanyl Citrate (Fentanyl Cit Inj 50 Mcg/Ml Amp 2ml) 50 mcg IVP Q3HR PRN PRN Reason: AGITATION (SEVERE) Stop: 05/20/25 13:05 Fentanyl Citrate (Fentanyl Cit Inj 50 Mcg/Ml Amp 2ml) 25 mcg IVP X1 ONE Stop: 05/16/25 16:03 Last Admin: 05/16/25 16:21 Dose: 25 mcg Heparin Sodium (Porcine) (Heparin Sod Inj 1000 Unit/Ml Vial 10 Ml) 2,600 unit INDWELLCAT X1 PRN PRN Reason: DIALYSIS Stop: 05/26/25 11:50 Last Admin: 05/12/25 13:57 Dose: 2,600 unit Heparin Sodium (Porcine) (Heparin Sod Inj 5000 Unit/Ml Vial) 5,000 unit SC Q8HR [facility] Stop: 05/29/25 08:59 Last Admin: 05/15/25 15:14 Dose: Not Given Heparin Sodium (Porcine) (Heparin Sod Inj 5000 Unit/Ml Vial) 5,000 unit SC Q12H [facility] Stop: 05/29/25 20:59 Last Admin: 05/16/25 08:34 Dose: 5,000 unit Heparin Sodium (Porcine) (Heparin Sod Inj 5000 Unit/Ml Vial) 5,000 unit SC Q8HR [facility] Stop: 05/30/25 13:59 Last Admin: 05/20/25 13:23 Dose: 5,000 unit Heparin Sodium (Porcine) (Heparin Sod Inj 5000 Unit/Ml Vial) 5,000 unit INDWELLCAT PRN PRN PRN Reason: after use of central line Stop: 06/02/25 13:40 Hydralazine HCl (Hydralazine Inj 20 Mg/Ml Vial) 10 mg IVP Q4H PRN PRN Reason: SBP>180 Stop: 06/15/25 16:01 Last Admin: 05/17/25 21:40 Dose: 10 mg Hydralazine HCl (Hydralazine Inj 20 Mg/Ml Vial) 10 mg IVP Q4H PRN PRN Reason: SBP>180 Stop: 06/15/25 16:01 Last Admin: 05/18/25 16:18 Dose: 10 mg Hydralazine HCl (Hydralazine Inj 20 Mg/Ml Vial) 10 mg IVP Q4H PRN PRN Reason: SBP>180 and HR <70 Stop: 06/15/25 16:01 Hydromorphone HCl (Hydromorphone Inj 2 Mg/Ml Vial) 0.25 mg IVP X1 ONE Stop: 05/19/25 19:32 Last Admin: 05/19/25 19:46 Dose: 0.25 mg Hydromorphone HCl (Hydromorphone Inj 2 Mg/Ml Vial) 0.25 mg IVP X1 ONE Stop: 05/20/25 04:52 Last Admin: 05/20/25 05:24 Dose: 0.25 mg Hydromorphone HCl (Hydromorphone Inj 2 Mg/Ml Vial) 0.25 mg IVP Q4HR PRN PRN Reason: BREAKTHROUGH PAIN Stop: 05/25/25 08:08 Last Admin: 05/22/25 04:10 Dose: 0.25 mg Hydromorphone HCl (Hydromorphone Inj 2 Mg/Ml Vial) 0.25 mg IVP X1 ONE Stop: 05/22/25 08:45 Last Admin: 05/22/25 09:48 Dose: 0.25 mg Hydromorphone HCl (Hydromorphone Inj 2 Mg/Ml Vial) 0.25 mg IVP X1 ONE Stop: 05/22/25 16:56 Last Admin: 05/22/25 17:07 Dose: Not Given Hydromorphone HCl (Hydromorphone Inj 2 Mg/Ml Vial) 0.5 mg IVP X1 ONE Stop: 05/22/25 18:08 Last Admin: 05/22/25 18:22 Dose: 0.5 mg Norepinephrine/Dextrose (Levophed In D5w 8mg/250ml) 8 mg in 250 mls @ 11.907 mls/hr IV .Q21H PRN; Protocol PRN Reason: PER PROTOCOL Stop: 06/08/25 22:19 Norepinephrine/Dextrose (Levophed In D5w 8mg/250ml) 8 mg in 250 mls @ 11.907 mls/hr IV .Q21H PRN; Protocol PRN Reason: PER PROTOCOL Stop: 06/08/25 22:37 Last Titration: 05/13/25 20:35 Dose: 0 mcg/kg/min, 0 mls/hr Azithromycin 500 mg/ Sodium (Chloride) 250 mls @ 250 mls/hr IV X1 ONE Stop: 05/09/25 23:44 Last Infusion: 05/10/25 00:20 Dose: Infused Ceftriaxone Sodium/Dextrose (Rocephin/D5w 1gm Iv Premix) 1 gm in 50 mls @ 100 mls/hr IV X1 ONE Stop: 05/09/25 23:14 Last Infusion: 05/09/25 23:43 Dose: Infused Sodium Chloride (Ns) 1,000 mls @ 999 mls/hr IV .Q1H1M ONE Stop: 05/10/25 00:46 Last Infusion: 05/10/25 01:09 Dose: Infused Sodium Chloride (Ns) 1,000 mls @ 999 mls/hr IV .Q1H1M ONE Stop: 05/10/25 00:46 Last Infusion: 05/10/25 01:09 Dose: Infused Fentanyl Citrate (Sublimaze Inj 2,500 Mcg/250 Ml Bag) 2,500 mcg in 250 mls @ 2.5 mls/hr IV .Q24H PRN; Protocol PRN Reason: PER PROTOCOL Stop: 05/15/25 04:25 Last Titration: 05/13/25 08:35 Dose: 0 mcg/hr, 0 mls/hr Cefepime HCl 2 gm/ Sodium (Chloride) 50 mls @ 100 mls/hr IV QDAY [facility] Stop: 05/17/25 08:59 Last Infusion: 05/17/25 19:24 Dose: Infused Azithromycin 250 mg/ Sterile (Water 2.5 ml/ Sodium Chloride) 252.5 mls @ 252.5 mls/hr IV QDAY [facility] Stop: 05/13/25 08:59 Last Infusion: 05/13/25 07:43 Dose: Infused Lactated Ringer's (Lactated Ringers) 1,000 mls @ 999 mls/hr IV .Q1H1M ONE Stop: 05/10/25 07:55 Last Infusion: 05/10/25 10:49 Dose: Infused Sodium Chloride (Ns) 1,000 mls @ 100 mls/hr IV .Q10H [facility] Stop: 05/11/25 01:26 Last Infusion: 05/10/25 22:00 Dose: 100 mls/hr Magnesium Sulfate (Magnesium Sulfate Ivpb) 4 gm in 50 mls @ 12.5 mls/hr IV X1 ONE Stop: 05/11/25 02:54 Last Admin: 05/10/25 23:06 Dose: 12.5 mls/hr Sodium Chloride (Ns) 500 mls @ 250 mls/hr IV .Q2H ONE Stop: 05/11/25 11:14 Last Admin: 05/11/25 10:05 Dose: 250 mls/hr Lactated Ringer's (Lactated Ringers) 1,000 mls @ 999 mls/hr IV .Q1H1M ONE Stop: 05/11/25 17:52 Last Admin: 05/11/25 17:03 Dose: 999 mls/hr Dexmedetomidine/Sodium Chloride (Precedex Ivpb) 400 mcg in 100 mls @ 5.37 mls/hr IV .[id number] PRN; Protocol PRN Reason: Per PROTOCOL Stop: 06/10/25 17:03 Last Titration: 05/16/25 10:25 Dose: 0 mcg/kg/hr, 0 mls/hr Albumin Human (Albuminar-25 Ivpb) 25 gm in 100 mls @ 100 mls/min IV PRN PRN PRN Reason: DIALYSIS Stop: 05/15/25 11:50 Magnesium Sulfate (Magnesium Sulfate Ivpb) 2 gm in 50 mls @ 25 mls/hr IV X1 ONE Stop: 05/13/25 10:09 Last Admin: 05/13/25 09:03 Dose: 25 mls/hr Azithromycin 250 mg/ Sterile (Water 2.5 ml/ Sodium Chloride) 252.5 mls @ 252.5 mls/hr IV QDAY YURY Stop: 05/14/25 09:59 Last Admin: 05/14/25 08:25 Dose: 252.5 mls/hr Potassium Chloride (Kcl Ivpb) 20 meq in 100 mls @ 50 mls/hr IV X1 ONE Stop: 05/14/25 09:28 Last Admin: 05/14/25 08:32 Dose: 50 mls/hr Potassium Chloride (Kcl Ivpb) 20 meq in 100 mls @ 50 mls/hr IV X1 ONE Stop: 05/14/25 09:34 Last Admin: 05/14/25 08:21 Dose: Not Given Potassium Chloride (Kcl Ivpb) 20 meq in 100 mls @ 50 mls/hr IV X1 ONE; Protocol Stop: 05/14/25 11:29 Last Admin: 05/14/25 11:43 Dose: 50 mls/hr Magnesium Sulfate (Magnesium Sulfate Ivpb) 2 gm in 50 mls @ 25 mls/hr IV X1 ONE Stop: 05/15/25 09:08 Last Admin: 05/15/25 07:21 Dose: 25 mls/hr Potassium Chloride (Kcl Ivpb) 20 meq in 100 mls @ 50 mls/hr IV X1 ONE Stop: 05/15/25 09:09 Last Admin: 05/15/25 07:21 Dose: 50 mls/hr Acetaminophen (Ofirmev Inj) 1,000 mg in 100 mls @ 250 mls/hr IV X1 ONE Stop: 05/16/25 13:49 Last Admin: 05/16/25 14:25 Dose: 250 mls/hr Magnesium Sulfate (Magnesium Sulfate Ivpb) 2 gm in 50 mls @ 25 mls/hr IV X1 ONE Stop: 05/17/25 08:44 Last Infusion: 05/17/25 19:24 Dose: Infused Potassium Chloride (Kcl Ivpb) 10 meq in 100 mls @ 100 mls/hr IV Q1H YURY Stop: 05/17/25 08:44 Last Admin: 05/17/25 07:23 Dose: Not Given Sodium Chloride (Ns) 500 mls @ 999 mls/hr IV .Q31M ONE Stop: 05/17/25 07:24 Last Infusion: 05/17/25 19:24 Dose: Infused Potassium Chloride (Kcl Ivpb) 100 mls @ 50 mls/hr IV X1 ONE Stop: 05/17/25 09:29 Last Infusion: 05/17/25 09:49 Dose: Infused Dextrose/Sodium Chloride (D5-1/2ns) 1,000 mls @ 60 mls/hr IV .[id number] ONE Stop: 05/18/25 01:21 Last Admin: 05/17/25 09:56 Dose: 60 mls/hr Vancomycin HCl/Dextrose (Vancomycin/D5w 1500 Mg Ivpb) 300 mls @ 120 mls/hr IV X1 ONE Stop: 05/17/25 11:29 Last Infusion: 05/17/25 19:24 Dose: Infused Amiodarone HCl/Dextrose (Nexterone Ivpb) 360 mg in 200 mls @ 16.667 mls/hr IV .Q12H [facility] Stop: 05/18/25 09:48 Last Admin: 05/17/25 22:26 Dose: 16.667 mls/hr Vancomycin/Sodium Chloride (Vancomycin/Ns 500 Mg Ivpb) 100 mls @ 120 mls/hr IV X1 ONE Stop: 05/18/25 10:49 Last Admin: 05/18/25 09:47 Dose: 120 mls/hr Potassium Chloride (Kcl Ivpb) 10 meq in 100 mls @ 100 mls/hr IV Q1H [facility] Stop: 05/18/25 10:53 Last Admin: 05/19/25 07:04 Dose: Not Given Magnesium Sulfate (Magnesium Sulfate Ivpb) 2 gm in 50 mls @ 25 mls/hr IV X1 ONE Stop: 05/18/25 09:20 Last Admin: 05/18/25 07:56 Dose: 25 mls/hr Potassium Chloride (Kcl Ivpb) 10 meq in 100 mls @ 100 mls/hr IV Q1H [facility]URY Stop: 05/18/25 13:21 Last Admin: 05/19/25 07:04 Dose: Not Given Potassium Chloride (Kcl Ivpb) 20 meq in 100 mls @ 50 mls/hr IV Q2H [facility] Stop: 05/18/25 13:29 Last Admin: 05/18/25 11:50 Dose: 50 mls/hr Amiodarone HCl/Dextrose (Nexterone Ivpb) 360 mg in 200 mls @ 16.667 mls/hr IV .Q12H [facility] Stop: 05/19/25 11:05 Last Admin: 05/19/25 00:53 Dose: 16.667 mls/hr Sodium Chloride (Ns 0.45%) 1,000 mls @ 100 mls/hr IV .Q10H ONE Stop: 05/18/25 21:42 Last Admin: 05/18/25 12:00 Dose: 100 mls/hr Vancomycin/Sodium Chloride (Vancomycin/Ns 750 Mg Ivpb) 750 mg in 150 mls @ 120 mls/hr IV QDAY@1000 [facility] Stop: 05/26/25 09:59 Amiodarone HCl/Dextrose (Nexterone Ivpb) 360 mg in 200 mls @ 16.667 mls/hr IV .Q12H [facility] Stop: 05/20/25 11:14 Last Admin: 05/19/25 15:13 Dose: Not Given Linezolid (Zyvox Ivpb) 600 mg in 300 mls @ 300 mls/hr IV Q12HR [facility] Stop: 05/26/25 08:40 Last Admin: 05/19/25 10:33 Dose: Not Given Linezolid (Zyvox Ivpb) 600 mg in 300 mls @ 300 mls/hr IV Q12HR [facility] Stop: 05/26/25 20:59 Last Admin: 05/19/25 21:51 Dose: 300 mls/hr Potassium Chloride (Kcl Ivpb) 10 meq in 100 mls @ 100 mls/hr IV Q1H [facility] Stop: 05/20/25 10:59 Last Admin: 05/20/25 11:08 Dose: Not Given Potassium Chloride (Kcl Ivpb) 20 meq in 100 mls @ 50 mls/hr IV X1 ONE Stop: 05/20/25 13:04 Last Admin: 05/20/25 11:21 Dose: 50 mls/hr Magnesium Sulfate (Magnesium Sulfate Ivpb) 4 gm in 50 mls @ 12.5 mls/hr IV X1 ONE Stop: 05/22/25 09:03 Last Admin: 05/22/25 06:18 Dose: 12.5 mls/hr Magnesium Sulfate (Magnesium Sulfate Ivpb) 2 gm in 50 mls @ 25 mls/hr IV X1 ONE Stop: 05/22/25 10:41 Last Admin: 05/22/25 09:13 Dose: 25 mls/hr Albumin Human (Albuminar-25 Ivpb) 12.5 gm in 50 mls @ 50 mls/hr IV X1 ONE Stop: 05/22/25 09:41 Last Admin: 05/22/25 09:04 Dose: 50 mls/hr Potassium Chloride (Kcl Ivpb) 10 meq in 100 mls @ 100 mls/hr IV X1 ONE Stop: 05/22/25 09:53 Last Admin: 05/22/25 09:59 Dose: 100 mls/hr Insulin Degludec (Insulin Degludec 5 Unit/0.05 Ml (Per 5 Units)) 15 unit SC QDAY [facility] Stop: 06/09/25 08:59 Last Admin: 05/15/25 08:28 Dose: 15 unit Insulin Degludec (Insulin Degludec 5 Unit/0.05 Ml (Per 5 Units)) 18 unit SC QDAY [facility] Stop: 06/15/25 08:59 Last Admin: 05/16/25 08:35 Dose: 18 unit Insulin Degludec (Insulin Degludec 5 Unit/0.05 Ml (Per 5 Units)) 3 unit SC X1 ONE Stop: 05/15/25 09:14 Last Admin: 05/15/25 09:26 Dose: 3 unit Insulin Degludec (Insulin Degludec 5 Unit/0.05 Ml (Per 5 Units)) 20 unit SC QDAY [facility] Stop: 06/16/25 08:59 Last Admin: 05/22/25 09:50 Dose: Not Given Insulin Human Lispro (Insulin Lispro (Admelog) 1 Unit/0.01 Ml Unit) 0 unit SC AC [facility]; Protocol Stop: 06/09/25 07:29 Insulin Human Lispro (Insulin Lispro (Admelog) 1 Unit/0.01 Ml Unit) 0 unit SC Q6HR [facility]; Protocol Stop: 06/09/25 11:59 Last Admin: 05/15/25 05:13 Dose: 4 unit Ipratropium [place] (Ipratropium Rt 0.5 Mg/ 2.5 Ml Nebu) 1 mg INH X1 ONE Stop: 05/09/25 22:46 Last Admin: 05/09/25 23:38 Dose: 1 mg Labetalol HCl (Labetalol Inj 5 Mg/Ml Vial 20 Ml) 10 mg IVP Q10MIN PRN PRN Reason: SBP > 180 Labetalol HCl (Labetalol Inj 5 Mg/Ml Vial 20 Ml) 10 mg IVP X1 ONE Stop: 05/16/25 13:29 Last Admin: 05/16/25 13:37 Dose: 10 mg Labetalol HCl (Labetalol Inj 5 Mg/Ml Vial 20 Ml) 20 mg IVP X1 ONE Stop: 05/16/25 14:57 Last Admin: 05/16/25 15:26 Dose: Not Given Labetalol HCl (Labetalol Inj 5 Mg/Ml Vial 20 Ml) 10 mg IVP X1 ONE Stop: 05/16/25 15:20 Last Admin: 05/16/25 15:20 Dose: 10 mg Labetalol HCl (Labetalol Inj 5 Mg/Ml Vial 20 Ml) 10 mg IVP Q10MIN PRN PRN Reason: SBP > 180 Last Admin: 05/18/25 00:42 Dose: 10 mg Labetalol HCl (Labetalol Inj 5 Mg/Ml Vial 20 Ml) 10 mg IVP Q10MIN PRN PRN Reason: SBP > 180 Labetalol HCl (Labetalol Inj 5 Mg/Ml Vial 20 Ml) 10 mg IVP Q10MIN PRN PRN Reason: Sbp > 180 and HR >70 Last Admin: 05/18/25 23:22 Dose: 10 mg Labetalol HCl (Labetalol Inj 5 Mg/Ml Vial 20 Ml) 10 mg IVP Q10MIN PRN PRN Reason: Sbp > 160 and HR >70 Last Admin: 05/22/25 14:05 Dose: 10 mg Labetalol HCl (Labetalol Inj 5 Mg/Ml Vial 20 Ml) 20 mg IVP X1 ONE Stop: 05/22/25 15:34 Last Admin: 05/22/25 16:06 Dose: Not Given Levothyroxine Sodium (Levothyroxine Sodium 88 Mcg Tablet) 75 mcg PO ACBR [facility] Stop: 06/09/25 05:59 Last Admin: 05/10/25 09:15 Dose: Not Given Levothyroxine Sodium (Levothyroxine Sodium 25 Mcg Tablet) 75 mcg PO ACBR [facility] Stop: 06/10/25 05:59 Levothyroxine Sodium (Levothyroxine Sodium 25 Mcg Tablet) 75 mcg PO BR [facility] Stop: 06/09/25 08:59 Last Admin: 05/17/25 05:23 Dose: Not Given Levothyroxine Sodium (Levothyroxine Inj 100 Mcg Vial) 35 mcg IV QDAY [facility] Stop: 06/16/25 11:14 Last Admin: 05/19/25 09:34 Dose: 35 mcg Levothyroxine Sodium (Levothyroxine Sodium 25 Mcg Tablet) 75 mcg PO QDAY [facility] Stop: 06/18/25 13:14 Last Admin: 05/19/25 15:14 Dose: Not Given Levothyroxine Sodium (Levothyroxine Sodium 25 Mcg Tablet) 75 mcg PO ACBR [facility] Stop: 06/19/25 13:14 Last Admin: 05/22/25 06:14 Dose: 75 mcg Linezolid (Linezolid 600 Mg Tablet) 600 mg PO BID [facility]; Protocol Stop: 05/27/25 10:44 Last Admin: 05/20/25 20:10 Dose: Not Given Linezolid (Linezolid 600 Mg Tablet) 600 mg GT X1 ONE; Protocol Stop: 05/22/25 12:31 Last Admin: 05/22/25 16:44 Dose: 600 mg Losartan Potassium (Losartan Potassium 25 Mg Tablet) 50 mg PO QDAY [facility] Stop: 06/15/25 13:29 Last Admin: 05/21/25 08:34 Dose: 50 mg Losartan Potassium (Losartan Potassium 25 Mg Tablet) 50 mg NG X1 ONE Stop: 05/22/25 12:31 Last Admin: 05/22/25 17:08 Dose: Not Given Magnesium Oxide (Magnesium Oxide 400 Mg Tablet) 400 mg NG X1 ONE Stop: 05/22/25 08:03 Metolazone (Metolazone 2.5 Mg Tablet) 2.5 mg NG X1 ONE Stop: 05/22/25 14:15 Last Admin: 05/22/25 17:09 Dose: Not Given Metoprolol Tartrate (Metoprolol Tartrate Inj 1 Mg/Ml Amp 5 Ml) 5 mg IVP Q10MIN PRN PRN Reason: HR>130 Stop: 06/14/25 14:15 Last Admin: 05/15/25 17:17 Dose: 5 mg Midazolam HCl (Midazolam Inj 1 Mg/Ml Vial 2 Ml) 4 mg IVP X1 ONE Stop: 05/10/25 14:43 Last Admin: 05/10/25 14:45 Dose: 4 mg Midazolam HCl (Midazolam Inj 1 Mg/Ml Vial 2 Ml) 2 mg IVP X1 ONE Stop: 05/11/25 12:05 Last Admin: 05/11/25 12:12 Dose: 2 mg Midazolam HCl (Midazolam Inj 1 Mg/Ml Vial 2 Ml) 2 mg IVP X1 ONE Stop: 05/11/25 17:04 Last Admin: 05/11/25 17:08 Dose: 2 mg Morphine Sulfate (Morphine Sulf Inj 4 Mg/Ml Vial) 2 mg IVP Q4H PRN PRN Reason: BREAKTHROUGH PAIN (SEVERE) Morphine Sulfate (Morphine Sulf Inj 4 Mg/Ml Vial) 1 mg IVP X1 ONE Stop: 05/22/25 08:38 Last Admin: 05/22/25 08:54 Dose: Not Given Multivitamins (Multivitamins Tablet) 1 tab PO QDAY [facility] Stop: 06/16/25 08:59 Last Admin: 05/21/25 08:33 Dose: 1 tab Multivitamins (Multivitamins Tablet) 1 tab NG X1 ONE Stop: 05/22/25 12:31 Last Admin: 05/22/25 17:08 Dose: Not Given Mupirocin (Mupirocin Oint 2% 15 Gm Tube) 0 gm TOP X1 ONE Stop: 05/12/25 15:33 Last Admin: 05/12/25 17:09 Dose: 1 applicator Nitroglycerin (Nitroglycerin 0.4 Mg Subl Btl #25) 0.4 mg SL Q5MIN PRN PRN Reason: CHEST PAIN Non-Formulary Medication (Bupropion Hcl) 200 mg PO BID [facility] Stop: 06/09/25 08:59 Non-Formulary Medication (Insulin Glargine [Lantus Solostar U-100 Insulin]) 15 unit SC QAM [facility] Stop: 06/09/25 08:59 Pharmacy Consult (Vancomycin Pharmacy To Dose 1 Each Each) 1 each IV QDAY PRN PRN Reason: PROTOCOL Stop: 06/16/25 08:59 Potassium Chloride (Potassium Chloride 10% 20 Meq/15 Ml Udc) 20 meq GT X1 ONE Stop: 05/22/25 08:03 Last Admin: 05/22/25 09:01 Dose: Not Given Rocuronium [place] (Rocuronium Inj 10 Mg/Ml Vial 10 Ml) 100 mg IVP X1 ONE Stop: 05/09/25 22:17 Last Admin: 05/09/25 22:19 Dose: 100 mg Sodium Chloride (Sodium Chloride Rt [place] 0.9% 3 Ml Nebu) 3 ml INH PRN PRN PRN Reason: SOLN Stop: 06/08/25 22:44 Last Admin: 05/09/25 23:39 Dose: 3 ml Sodium Chloride (Sodium Chloride Rt [place] 0.9% 3 Ml Nebu) 3 ml INH PRN PRN PRN Reason: SOLN Stop: 06/16/25 07:56 Last Admin: 05/17/25 08:28 Dose: 3 ml Zinc Sulfate (Zinc Sulfate 220 Mg Capsule) 220 mg PO QDAY [facility] Stop: 05/31/25 08:59 Last Admin: 05/21/25 08:34 Dose: 220 mg Zinc Sulfate (Zinc Sulfate 220 Mg Capsule) 220 mg NG X1 ONE Stop: 05/22/25 12:31 Last Admin: 05/22/25 17:09 Dose: Not Given Assessment & Plan Plan The patient is an 80-year-old female with significant past medical history of HFpEF, A-fib on Eliquis, bradycardia s/p pacemaker placement in 2022, hypothyroidism, chronic back pain, insulin-dependent diabetes mellitus type 2, and hypertension who was brought in by ambulance from home on 05/10/2025 with worsening of SOB. Initially, her blood pressure was 75/50, HR 102, temperature 105.1, and was admitted to ICU for septic shock secondary to community-acquired pneumonia. The patient was intubated on 05/10/2025, and extubated on 05/16/2025. She was initially placed on cefepime and azithromycin. The patient was downgraded to telemetry unit on 05/21/2025. The patient's white count trended up from 05/16/2025 to 05/18/2025, and after that down trended, and required continuous oxygen support. Later patient was treated in the line of ventilator associated pneumonia, and was placed on linezolid. Despite the above interventions, her oxygen saturation continued to trend down, and infectious disease consultation was done for further management of pneumonia. #Bilateral pneumonia Likely hospital-acquired and ventilator associated pneumonia Patient continues to struggle for breathing, and persistent left lower lobe changes after prolonged IV antibiotics Admitted on 05/10/2025 and has been receiving antibiotics until today that is 05/23/2025, and his CRP is still high. -Discontinued linezolid and cefepime, as patient has already had more than 7 days of broad-spectrum IV antibiotics. Sputum culture on 05/09/2025 had revealed strep pneumo, that was pansensitive. And nasal MRSA positive does not necessarily indicate MRSA pneumonia. - If want to proceed with antibiotics for longer duration, may consider enteral quinolones adjusted for her CKD for maximum 7 days. #CKD #Hypertension #Hyperlipidemia #Diabetes mellitus type 2 #Peripheral vascular disease #HFpEF #A-fib on Eliquis #Hypothyroidism #Chronic back pain #Goals of care discussion -Management deferred to primary hospitalist team Thank you for your opportunity to participate in this patient care. We will continue to follow-up on this patient. The patient's management plan was discussed with my attending physician MD Jacob Mejia MD, PGY3
--- NOTE | 2025-05-23 09:22 | PD.RESPRO ---
Documentation for date of: 05/23/25 Subjective Subjective Interval history: Patient is 80y/o F with PMH of HFpEF, A-fib on Eliquis, bradycardia s/p pacemaker placement in 2022, hypothyroidism,chronic back pain, IDDM II, and hypertension presented to the hospital due to worsening shortness of breathe. Per ICU note, no further history was obtained from the patient from EMS. Patient has been admitted to ICU for management of septic shock and acute hypoxic respiratory failure with community acquired pneumonia. Patient has been consulted to nephrology for management of KRYSTAL on CKD and possibility of hemodialysis. ED course: No further history obtained from EMS, at the ED patient's BP 75/50 with heart rate of 102 and temp 105.1, labs were pH 7.29 WBC 24, creatinine 2.2, lactate 6, troponin 45, BNP 2800, Pro-Jamshid 23, and TSH of 6. ABG pH 7.29 and pCO2 of 41. CXR showed significant right lobar pneumonia with UA noted for high WBC/RBC/epithelial cells. Head CT was negative for acute findings, patient was intubated, femoral central line along with femoral arterial line were placed in ED. Patient received 3L of LR boluses, received 1 dose of ceftriaxone and azithromycin and was started on Levophed along with dobutamine. PMH: Diabetes, HFpEF, A-fib, hypothyroidism, HTN, chronic back pain PSH: Cholecystectomy, 3 back surgeries SH: Does not drink or use illicit drugs. Smoked 1 pack a day for many years , quit 3 months ago. Allergies:?sulfa Medications: amiodarone, amlodipine, eliquis, atorvastatin, bupropion, escitalopram, gabapentin, hydromorphone, Lantus, levothyroxine, Reglan, pioglitazone, trazodone, montelukast. 05/11/2025: Patient unarousable and minimally interactive. BP: 108/58 Cr: 3.6, eGFR: 12, BUN:36 pH: 7.26, Urine Output: 20ml. Continue to monitor Urine output. If no improvement, then likely hemodialysis tomorrow. 05/12/2025: Labs reviewed and patient examined at the ICU. Patient is unarousable and unable to be questioned or interact with medical providers. BP: 84/66 Cr: 4.5, BUN:46, eGFR:9, pH: 7.23. Urine Output: 30ml. Patient will receive conventional Hemodialysis today for 3 hours. CRRT is not indicated at this time. will continue to montior renal function. 05/13/2025: Labs reviewed and patient examined at the ICU. Patient is still unarousable and unable to be questioned or interact with medical providers. BP: 136/67 Cr: 3.4, BUN:43, eGFR:13, pH: 7.32. Urine Output: 295ml. Patient's Creatinine is getting better. Will hold hemodialysis for today . Given Bumex 2mg x1 because of bilateral lower extremity swelling. 05/14/2025: Labs reviewed and patient examined at the ICU. Patient continues to be in unconscious state: BP:121/55 Cr: 3.4, BUN: 48, eGFR: 13, pH:7.38, Urine Output: 1.49L.Bicarb: 19.9. Patient is continuing to good urine, Creatinine is stable. No need for hemodialysis today. Patient has low bicarb likely due to diarrhea. Given bicitrate 30ml bid PO. Given Bumex 2mg IV x1. 05/15/2025: Labs reviewed and patient examined at the ICU. Patient continues to be in unconscious state. BP: 125/46, Cr: 3.2, BUN: 44, eGFR: 14. ABG pH: 7.41, Urine output: 990ml. Patient is continuing to good urine, Creatinine is stable. No need for hemodialysis. Continue to monitor renal function. 05/17/2025: patient currently seen in ICU. Extubated although unable to raise her hands due to significant critical illness polyneuropathy. Patient currently on BiPAP. Creatinine improving. Decreased p.o. intake-ICU team give IV fluids. Clinically patient looks rather hypervolemic. If no improvement in urine output we will do Bumex. Hold off on dialysis today. Labs/medications reviewed. Right IJ dialysis catheter could not be removed due to lack of venous access. 05/18/2025: Labs reviewed and patient examined at the ICU. Patient is arousable. Able to follow basic commends. Creatinine stable. Urine output: 1.3 L. Continue to monitor renal function. Bumex if needed. Cr: 1.9, BUN:52, eGFR:26 VBG pH: 7.49 05/19/2025: Labs reviewed and patient examined at the ICU. Patient is arousable. Able to follow basic commends. Creatinine stable. Urine output: 1.5 L. Dialysis not needed at this moment. Suggests removing dialysis catheter. Cr: 1.9, BUN:54, eGFR:26 VBG pH: 7.42. Patient received CTA with contrast yesterday. Will continue to monitor her symptoms. 05/20/2025: Labs reviewed and patient examined at the ICU. Patient can follow basic commends. Arousable. Patient discontinued vancomycin and replaced with lenezolid. Creatinine slightly decreased today. Urine output: 1.3L, Cr:1.7, BUN: 39, eGFR:30. No need for hemodialysis yet. Will continue to monitor her electrolytes. 05/21/2025:Labs reviewed and patient examined at the ICU. Current plan remains unchanged. No need for hemodialysis. Continue to monitor renal function. 1 dose of Bumex 1mg IV given by ICU team. BUN: 40, Cr:1.8, eGFR:28, UoP: 1.3L 05/22/2025:Labs reviewed and patient examined at the bedside. Patient got downgraded to telebed from ICU. Patient on bipap. Can understand, but has difficulty in commiunicating. Current plan remains unchanged. No need for hemodialysis. Continue to monitor renal function. BUN: 28, Cr:1.7, eGFR:30, UoP: 1.3L 05/23/2025: Labs reviewed and patient examined at the bedside. Patient had multiple rapid events overnight due to episodes of oxygen desaturation and tachypnea. This morning, patient is exhibiting agonal respirations while on BiPAP with FiO2 35%. Mental status has declined substantially compared to yesterday. BUN:34, Cr:1.6, eGFR:32, Urine Output: 2.4L. Will continue to monitor renal function. No indication for hemodialysis at this moment. Currently discussing goals of care. Exam Vital Signs Temp Pulse Resp BP Pulse Ox O2 Del Method O2 Flow Rate 96.7 F L 71 29 H 155/71 H 96 BiPAP 8 05/23/25 04:00 05/23/25 08:41 05/23/25 07:55 05/23/25 08:41 05/23/25 07:55 05/23/25 04:00 05/23/25 04:00 FiO2 35 05/23/25 07:55 Narrative Exam General: Lethargic, on BiPAP Eye: normal conjunctiva, no scleral icterus HENT: Normocephalic, atraumatic, moist oral mucosa Neck: Supple, non-tender, no JVD, no lymphadenopathy Lungs: symmetric chest rise, inspiratory stridor, on Bipap. Heart: Peripheral pulses intact bilaterally, Regular Rate and Rhythm, Abdomen: Soft, non-tender, non-distended, no palpable masses Musculoskeletal: No visible joint swelling, +1 bilateral lower extremity swelling. Skin: Blue discoloration and cold right feet. Neuro:Cranial nerves II-XII grossly intact.Sensations intact to light touch. Objective Labs 05/22/25 04:20 05/22/25 11:38 Labs: Laboratory Results - last 24 hr 05/22/25 05/22/25 05/23/25 11:38 22:36 05:10 Puncture Site Right Radial ABG pH 7.32 L ABG pCO2 53 H ABG pO2 52 L* D ABG HCO3 27 H ABG O2 Saturation 83 L ABG Base Excess 1 FiO2 30 Sodium 146 H Potassium 3.7 Chloride 110 H Carbon Dioxide 27.3 Anion Gap 9 BUN 34 H Creatinine 1.6 H Estim Creat Clear Calc 35.6 L eGFR 32 L BUN/Creatinine Ratio 21 H Glucose 138 H Calculated Osmolality 300 H Lactic Acid 0.8 Calcium 8.5 Corrected Calcium 8.9 Phosphorus 3.3 5.0 Magnesium 2.3 C-Reactive Prot, Quant 3.3 H B-Natriuretic Peptide 201 H Albumin 3.5 Procalcitonin 0.24 ABG Interpretation ABG results: 05/09/25 05/10/25 05/11/25 23:08 07:18 03:56 ABG pH 7.29 L 7.25 L 7.26 L ABG pCO2 41 49 H 41 ABG pO2 133 H 95 D 68 L D ABG HCO3 20 21 19 L ABG O2 Saturation 97 95 92 ABG Base Excess -7 L -6 L -8 L VBG pH VBG pCO2 VBG pO2 VBG Base Excess 05/12/25 05/13/25 05/14/25 04:09 04:02 04:18 ABG pH 7.23 L 7.32 L 7.38 ABG pCO2 44 43 34 ABG pO2 78 L 71 L 121 H D ABG HCO3 19 L 22 20 ABG O2 Saturation 94 92 97 ABG Base Excess -8 L -4 L -5 L VBG pH VBG pCO2 VBG pO2 VBG Base Excess 05/14/25 05/15/25 05/15/25 13:15 04:14 05:10 ABG pH 7.41 7.38 7.41 ABG pCO2 33 40 35 ABG pO2 113 H 48 L* D 89 D ABG HCO3 21 23 23 ABG O2 Saturation 98 82 L 98 ABG Base Excess -4 L -2 -2 VBG pH VBG pCO2 VBG pO2 VBG Base Excess 05/16/25 05/18/25 05/19/25 04:04 09:32 06:48 ABG pH 7.43 7.42 ABG pCO2 36 38 ABG pO2 84 74 L ABG HCO3 24 25 ABG O2 Saturation 96 93 ABG Base Excess 0 0 VBG pH 7.49 VBG pCO2 32 L VBG pO2 126 H VBG Base Excess 2 05/22/25 05/22/25 05/22/25 04:00 05:15 22:36 ABG pH 7.29 L D 7.40 D 7.32 L ABG pCO2 56 H D 44 D 53 H ABG pO2 197 H D 151 H D 52 L* D ABG HCO3 27 H 27 H 27 H ABG O2 Saturation 98 98 83 L ABG Base Excess -1 2 1 VBG pH VBG pCO2 VBG pO2 VBG Base Excess Quality Measures Quality Measures VTE prophylaxis, sepsis Current suspected stage: sepsis Possible source: pulmonary Blood cultures ordered: yes Antibiotic ordered: Yes and none Advance care planning discussed with:: patient Assessment & Plan Assessment Current Active Medications: Generic Name Dose Route Start Last Admin Trade Name Freq PRN Reason Stop Dose Admin Acetaminophen 650 mg 05/10/25 04:13 05/10/25 21:34 Acetaminophen 325 Mg Tablet PO 06/09/25 04:12 650 mg Q4HR PRN Administration PAIN SCALE 1-3 (mild Acetaminophen 650 mg 05/10/25 04:13 05/19/25 05:00 Acetaminophen Supp 650 Mg Supp OR 06/09/25 04:12 650 mg Q4HR PRN Administration PAIN SCALE 1-3 (mild Hydrocodone Bitart/Acetaminophen 1 tab 05/22/25 11:26 Hydrocodone/Apap 5/325 Tablet NG 05/25/25 06:55 Q6HR PRN PAIN SCALE 4-10(Mod-Sev Al Hydrox/Mg Hydrox/Simethicone 30 ml 05/10/25 04:13 Mg Hyd/Al Hyd/Jackeline (Maalox Reg) Susp 30 Ml Udc PO 06/09/25 04:12 Q4HR PRN Heartburn or Upset Stomach Albuterol/Ipratropium 3 ml 05/19/25 01:00 05/23/25 07:55 Albuterol/Ipratropium (Duoneb) Rt Suma 3 Ml Nebu INH 06/18/25 00:59 3 ml Q6HRRT YURY Administration Amiodarone HCl 200 mg 05/22/25 11:27 05/23/25 08:38 Amiodarone Hcl 200 Mg Tablet NG 06/09/25 08:59 200 mg QDAY YURY Administration Amlodipine Besylate 10 mg 05/22/25 11:27 05/23/25 08:38 Amlodipine Besylate 5 Mg Tablet NG 06/18/25 13:14 10 mg QDAY YURY Administration Apixaban 2.5 mg 05/22/25 11:27 05/23/25 08:37 Apixaban 2.5 Mg Tablet NG 06/19/25 15:39 2.5 mg BID YURY Administration Artificial Tears 0 drop 05/13/25 14:52 05/16/25 23:58 Artificial Tears 225 Drop/15 Ml Btl BOTH EYES 06/12/25 14:51 2 drops PRN PRN Administration TO KEEP EYES MOIST Ascorbic Acid 500 mg 05/22/25 11:28 05/23/25 08:40 Ascorbic Acid 250 Mg Tablet NG 06/16/25 08:59 500 mg BID YURY Administration Atorvastatin Calcium 10 mg 05/22/25 11:28 05/22/25 22:16 Atorvastatin Calcium 10 Mg Tablet NG 06/18/25 20:59 10 mg HS YURY Administration Bumetanide 1 mg 05/22/25 21:00 05/23/25 08:36 Bumetanide Inj 0.25 Mg/Ml Vial 4 Ml IVP 06/21/25 20:59 1 mg BID YURY Administration Bupropion HCl 200 mg 05/22/25 11:28 05/23/25 08:42 Bupropion Hcl 100 Mg Tablet NG 06/18/25 13:14 200 mg BID YURY Administration Carvedilol 6.25 mg 05/22/25 11:28 05/23/25 08:40 Carvedilol 3.125 Mg Tablet NG 06/19/25 08:59 6.25 mg BID YURY Administration Dextrose 25 ml 05/10/25 04:27 Dextrose 50%-Water Inj 50 Ml Syringe IV 06/09/25 04:26 Q15MIN PRN BG 50-70 responsive npo pt Dextrose 50 ml 05/10/25 04:27 Dextrose 50%-Water Inj 50 Ml Syringe IV 06/09/25 04:26 Q15MIN PRN BG <50 OR BG <70 & pt unresponsive Escitalopram Oxalate 20 mg 05/22/25 11:29 05/23/25 08:42 Escitalopram Oxalate 10 Mg Tablet NG 06/09/25 08:59 20 mg QDAY YURY Administration Glucagon 1 mg 05/10/25 04:27 Glucagon Inj 1 Mg Vial IM Q15MIN PRN BG <70, and no IV access Heparin Sodium (Porcine) 2,600 unit 05/19/25 14:08 Heparin Sod Inj 1000 Unit/Ml Vial 10 Ml INDWELLCAT 06/02/25 14:07 PRN PRN DIALYSIS Hydromorphone HCl 0.5 mg 05/22/25 19:15 05/22/25 22:56 Hydromorphone Inj 2 Mg/Ml Vial IVP 05/25/25 08:08 0.5 mg Q4HR PRN Administration BREAKTHROUGH PAIN 4-10 Cefepime HCl 1 gm/ Sodium 50 mls @ 100 mls/hr 05/22/25 10:50 05/23/25 08:35 Chloride IV 05/29/25 10:49 100 mls/hr Q12HR YURY Administration Insulin Degludec 10 unit 05/22/25 10:00 05/23/25 09:04 Insulin Degludec 5 Unit/0.05 Ml (Per 5 Units) SC 06/21/25 09:59 Not Given QDAY YURY Insulin Human Lispro 0 unit 05/15/25 12:00 05/23/25 05:25 Insulin Lispro (Admelog) 1 Unit/0.01 Ml Unit SC 06/09/25 11:59 Not Given Q6HR [facility] Protocol Labetalol HCl 10 mg 05/22/25 15:33 Labetalol Inj 5 Mg/Ml Vial 20 Ml IVP 06/21/25 15:32 Q4H PRN Hypertensive Emergency Levothyroxine Sodium 75 mcg 05/22/25 11:30 05/23/25 05:48 Levothyroxine Sodium 25 Mcg Tablet NG 06/19/25 13:14 75 mcg ACBR YURY Administration Linezolid 600 mg 05/20/25 11:30 05/23/25 08:39 Linezolid 600 Mg Tablet GT 05/27/25 11:29 600 mg BID YURY Administration Protocol Losartan Potassium 50 mg 05/22/25 11:26 05/23/25 08:41 Losartan Potassium 25 Mg Tablet NG 06/15/25 13:29 50 mg QDAY YURY Administration Magnesium Hydroxide 30 ml 05/10/25 04:13 Milk Of Magnesia Susp 30 Ml Udc PO 06/09/25 04:12 QDAY PRN CONSTIPATION Multivitamins 1 tab 05/22/25 11:31 05/23/25 08:39 Multivitamins Tablet NG 06/16/25 08:59 1 tab QDAY YURY Administration Ondansetron HCl 4 mg 05/20/25 10:57 05/20/25 18:26 Ondansetron Inj 2 Mg/Ml Inj 2 Ml IVP 06/19/25 10:56 4 mg Q6HR PRN Administration NAUSEA OR VOMITING Protocol Pantoprazole Sodium 40 mg 05/10/25 11:00 05/23/25 08:37 Pantoprazole Inj 40 Mg Vial IVP 06/09/25 10:59 40 mg QDAY YURY Administration Pharmacy Consult 1 each 05/17/25 08:40 Pharmacy Renal Dose Adjustment 1 Ea XX 06/16/25 08:39 PRN PRN CONSULT Sodium Chloride 1 spray 05/17/25 07:35 Saline Nasal 45 Ml Btl NASAL 06/16/25 07:34 PRN PRN CONGESTION Thiamine HCl 100 mg 05/18/25 15:15 05/23/25 08:35 Thiamine Inj 100 Mg/Ml Vial 2 Ml IVP 06/17/25 15:14 100 mg QDAY YURY Administration Zinc Sulfate 220 mg 05/22/25 11:30 05/23/25 08:40 Zinc Sulfate 220 Mg Capsule NG 05/31/25 08:59 220 mg QDAY YURY Administration Plan Patient is 80y/o F with PMH of HFpEF, A-fib on Eliquis, bradycardia s/p pacemaker placement in 2022, hypothyroidism,chronic back pain, IDDM II, and hypertension presented to the hospital due to worsening shortness of breathe. Per ICU note, no further history was obtained from the patient from EMS. Patient has been admitted to ICU for management of septic shock and acute hypoxic respiratory failure with community acquired pneumonia. Patient has been consulted to nephrology for management of KRYSTAL on CKD and possibility of hemodialysis. #KRYSTAL-most likely related to ATN- underlying shock #Anemia -Upon admission, BUN: 20, Cr:2.2 (Baseline 1.3), eGFR: 22 -Patient has minimal edema, lungs clear, mucus membranes moist. -CXR (05/10/2025): Severe pneumonia right lung pneumonia noted -Currently, BUN:34, Cr:1.6, eGFR:32, Urine Output: 2.4L. Plan: -Patient is continuing to good urine, Creatinine is stable. No need for hemodialysis. -Will continue to monitor renal function. -Avoid nephrotoxins -Renally dose medication #Acute encephalopathy #Septic shock 2/2 CAP #HFpEF #NSTEMI likely type II #Atrial fibrillation #IDDM II #Hx of Hypothyroidism #Subclinical hypothyroidisim #Elevated T. bili #Leukocytosis #Community-acquired pneumonia -Management per Primary Hospitalist team Thank you for allowing us to participate in the care of your patient. Assessment and plan discussed with my attending physician Dr. Wes Melton (PGY-1)- Internal medicine resident Attending Provider Attestation/Addendum patient currently seen and examined with resident physician Dr. Melton. Note reviewed, agree with findings and recommendations. patient currently seen in telemetry. Agonal breathing. Doubt that she can be transferred to home. Spoke to primary team-to start comfort measures if agreeable with family in house. That seems to be imminent. Family aware.
--- NOTE | 2025-05-23 10:15 | PD.IDPROG ---
Subjective Subjective Interval history: pt off list. events noted. persistent lll changes on imaging. no fever. wbc improved. Exam Vital Signs Temp Pulse Resp BP Pulse Ox O2 Del Method O2 Flow Rate 96.7 F L 71 29 H 155/71 H 96 BiPAP 8 05/23/25 04:00 05/23/25 08:41 05/23/25 07:55 05/23/25 08:41 05/23/25 07:55 05/23/25 04:00 05/23/25 04:00 FiO2 35 05/23/25 07:55 Narrative Exam non communicative. struggling to breathe. will go on comfort care soon per grand daughter Objective - Internal Medicine Labs 05/22/25 04:20 05/22/25 11:38 Labs: Laboratory Results - last 24 hr 05/22/25 05/22/25 05/23/25 11:38 22:36 05:10 Puncture Site Right Radial ABG pH 7.32 L ABG pCO2 53 H ABG pO2 52 L* D ABG HCO3 27 H ABG O2 Saturation 83 L ABG Base Excess 1 FiO2 30 Sodium 146 H Potassium 3.7 Chloride 110 H Carbon Dioxide 27.3 Anion Gap 9 BUN 34 H Creatinine 1.6 H Estim Creat Clear Calc 35.6 L eGFR 32 L BUN/Creatinine Ratio 21 H Glucose 138 H Calculated Osmolality 300 H Lactic Acid 0.8 Calcium 8.5 Corrected Calcium 8.9 Phosphorus 3.3 5.0 Magnesium 2.3 C-Reactive Prot, Quant 3.3 H B-Natriuretic Peptide 201 H Albumin 3.5 Procalcitonin 0.24 ABG Interpretation ABG results: 05/09/25 05/10/25 05/11/25 23:08 07:18 03:56 ABG pH 7.29 L 7.25 L 7.26 L ABG pCO2 41 49 H 41 ABG pO2 133 H 95 D 68 L D ABG HCO3 20 21 19 L ABG O2 Saturation 97 95 92 ABG Base Excess -7 L -6 L -8 L VBG pH VBG pCO2 VBG pO2 VBG Base Excess 05/12/25 05/13/25 05/14/25 04:09 04:02 04:18 ABG pH 7.23 L 7.32 L 7.38 ABG pCO2 44 43 34 ABG pO2 78 L 71 L 121 H D ABG HCO3 19 L 22 20 ABG O2 Saturation 94 92 97 ABG Base Excess -8 L -4 L -5 L VBG pH VBG pCO2 VBG pO2 VBG Base Excess 05/14/25 05/15/25 05/15/25 13:15 04:14 05:10 ABG pH 7.41 7.38 7.41 ABG pCO2 33 40 35 ABG pO2 113 H 48 L* D 89 D ABG HCO3 21 23 23 ABG O2 Saturation 98 82 L 98 ABG Base Excess -4 L -2 -2 VBG pH VBG pCO2 VBG pO2 VBG Base Excess 05/16/25 05/18/25 05/19/25 04:04 09:32 06:48 ABG pH 7.43 7.42 ABG pCO2 36 38 ABG pO2 84 74 L ABG HCO3 24 25 ABG O2 Saturation 96 93 ABG Base Excess 0 0 VBG pH 7.49 VBG pCO2 32 L VBG pO2 126 H VBG Base Excess 2 05/22/25 05/22/25 05/22/25 04:00 05:15 22:36 ABG pH 7.29 L D 7.40 D 7.32 L ABG pCO2 56 H D 44 D 53 H ABG pO2 197 H D 151 H D 52 L* D ABG HCO3 27 H 27 H 27 H ABG O2 Saturation 98 98 83 L ABG Base Excess -1 2 1 VBG pH VBG pCO2 VBG pO2 VBG Base Excess Assessment & Plan A&P Narrative persistent LLL changes after prolonged iv abx ckd 2-3 in and 80 y/o htn dysthrythmia hx hld dm II pvd per notes. dnr status with move to comfort care planned leandro. stopped abx as already prolonged as pt admitted 05/10 and today is 05/23 crp still high. bnp less high than on admit yeast in urine on admit likely very telling. pt can not augment the hx in any way it is possible that the cxr changes will not improve during her stay. that is not an overt indication for abx nor is the wbc. would have seen her on mon but off list before visit. if you want her on abx longer, that is a choice. suggest enteral quinolone adjusted for her ckd to 250/day for 7d max pos nasal mrsa not indicative of mrsa pneumonia. but neg nasal mrsa strongly against mrsa pneumonia. Time Spent With Patient Time: Total time spent is greater than 50% in coordination of care (as documented) at patient's floor/unit and/or counseling patient:
[2025-05-23] MEDS: Morphine IV Drip 100mg/100ml 100 ML IV (11:57)
--- NOTE | 2025-05-23 11:57 | PC.SS ---
Patient's partner, Daja; at bedside. LICENSING OFFICER confirmed with resident that comfort measures will be initiated.
[2025-05-23] MEDS: SCOPOLAMINE 1 MG TDSY TOP (12:09)
[2025-05-23] MEDS: MORPHINE SULF INJ 4 MG/ML VIAL 2 MG IVP (13:02)
--- NOTE | 2025-05-23 13:16 | EVENTNT_ITS ---
<Statement entered by Alec Tomlin MD - 05/23/25 15:06> Patient examined and case discussed with the team including attending physician. Note reviewed, I agree with the care plan as documented. Please refer to the note below for further details. - Alec Tomlin MD, PGY 3 Disclaimer: The document may contain phonetic/typographic errors due to voice r ecognition software. These errors are purely due to imperfections in the software program. Documentation for date of: 05/23/25 Event Note Event Note: I spoke to Daja, the patient's surrogate decision maker, about comfort care for the patient. At the time Daja made the decision to transfer the patient to comfort care around 8 AM on 05/23/2025. Nigel Nolen DO PGY-1.
--- NOTE | 2025-05-23 13:17 | PD.RESPRO ---
Documentation for date of: 05/23/25 Exam Vital Signs Temp Pulse Resp BP Pulse Ox O2 Del Method O2 Flow Rate 97.2 F 63 28 H 155/71 H 99 BiPAP 8 05/23/25 09:00 05/23/25 12:00 05/23/25 11:55 05/23/25 09:00 05/23/25 11:55 05/23/25 09:00 05/23/25 04:00 FiO2 50 05/23/25 11:55 Objective Labs 05/22/25 04:20 05/22/25 11:38 Labs: Laboratory Results - last 24 hr 05/22/25 05/23/25 22:36 05:10 Puncture Site Right Radial ABG pH 7.32 L ABG pCO2 53 H ABG pO2 52 L* D ABG HCO3 27 H ABG O2 Saturation 83 L ABG Base Excess 1 FiO2 30 Lactic Acid 0.8 Phosphorus 5.0 Magnesium 2.3 C-Reactive Prot, Quant 3.3 H B-Natriuretic Peptide 201 H Procalcitonin 0.24 ABG Interpretation ABG results: 05/09/25 05/10/25 05/11/25 23:08 07:18 03:56 ABG pH 7.29 L 7.25 L 7.26 L ABG pCO2 41 49 H 41 ABG pO2 133 H 95 D 68 L D ABG HCO3 20 21 19 L ABG O2 Saturation 97 95 92 ABG Base Excess -7 L -6 L -8 L VBG pH VBG pCO2 VBG pO2 VBG Base Excess 05/12/25 05/13/25 05/14/25 04:09 04:02 04:18 ABG pH 7.23 L 7.32 L 7.38 ABG pCO2 44 43 34 ABG pO2 78 L 71 L 121 H D ABG HCO3 19 L 22 20 ABG O2 Saturation 94 92 97 ABG Base Excess -8 L -4 L -5 L VBG pH VBG pCO2 VBG pO2 VBG Base Excess 05/14/25 05/15/25 05/15/25 13:15 04:14 05:10 ABG pH 7.41 7.38 7.41 ABG pCO2 33 40 35 ABG pO2 113 H 48 L* D 89 D ABG HCO3 21 23 23 ABG O2 Saturation 98 82 L 98 ABG Base Excess -4 L -2 -2 VBG pH VBG pCO2 VBG pO2 VBG Base Excess 05/16/25 05/18/25 05/19/25 04:04 09:32 06:48 ABG pH 7.43 7.42 ABG pCO2 36 38 ABG pO2 84 74 L ABG HCO3 24 25 ABG O2 Saturation 96 93 ABG Base Excess 0 0 VBG pH 7.49 VBG pCO2 32 L VBG pO2 126 H VBG Base Excess 2 05/22/25 05/22/25 05/22/25 04:00 05:15 22:36 ABG pH 7.29 L D 7.40 D 7.32 L ABG pCO2 56 H D 44 D 53 H ABG pO2 197 H D 151 H D 52 L* D ABG HCO3 27 H 27 H 27 H ABG O2 Saturation 98 98 83 L ABG Base Excess -1 2 1 VBG pH VBG pCO2 VBG pO2 VBG Base Excess Quality Measures Quality Measures VTE prophylaxis, sepsis Possible source: pulmonary Blood cultures ordered: yes and none Assessment & Plan Assessment Current Active Medications: Generic Name Dose Route Start Last Admin Trade Name Freq PRN Reason Stop Dose Admin Acetaminophen 650 mg 05/10/25 04:13 05/10/25 21:34 Acetaminophen 325 Mg Tablet PO 06/09/25 04:12 650 mg Q4HR PRN Administration PAIN SCALE 1-3 (mild Acetaminophen 650 mg 05/10/25 04:13 05/19/25 05:00 Acetaminophen Supp 650 Mg Supp ID 06/09/25 04:12 650 mg Q4HR PRN Administration PAIN SCALE 1-3 (mild Al Hydrox/Mg Hydrox/Simethicone 30 ml 05/10/25 04:13 Mg Hyd/Al Hyd/Jackeline (Maalox Reg) Susp 30 Ml Udc PO 06/09/25 04:12 Q4HR PRN Heartburn or Upset Stomach Albuterol/Ipratropium 3 ml 05/19/25 01:00 05/23/25 11:55 Albuterol/Ipratropium (Duoneb) Rt Suma 3 Ml Nebu INH 06/18/25 00:59 3 ml Q6HRRT YURY Administration Amiodarone HCl 200 mg 05/22/25 11:27 05/23/25 08:38 Amiodarone Hcl 200 Mg Tablet NG 06/09/25 08:59 200 mg QDAY YURY Administration Amlodipine Besylate 10 mg 05/22/25 11:27 05/23/25 08:38 Amlodipine Besylate 5 Mg Tablet NG 06/18/25 13:14 10 mg QDAY YURY Administration Apixaban 2.5 mg 05/22/25 11:27 05/23/25 08:37 Apixaban 2.5 Mg Tablet NG 06/19/25 15:39 2.5 mg BID YURY Administration Artificial Tears 1 drop 05/23/25 11:04 Artificial Tears 225 Drop/15 Ml Btl BOTH EYES 06/22/25 11:03 Q4HR PRN Dry eyes Ascorbic Acid 500 mg 05/22/25 11:28 05/23/25 08:40 Ascorbic Acid 250 Mg Tablet NG 06/16/25 08:59 500 mg BID YURY Administration Atorvastatin Calcium 10 mg 05/22/25 11:28 05/22/25 22:16 Atorvastatin Calcium 10 Mg Tablet NG 06/18/25 20:59 10 mg HS YURY Administration Bumetanide 1 mg 05/22/25 21:00 05/23/25 08:36 Bumetanide Inj 0.25 Mg/Ml Vial 4 Ml IVP 06/21/25 20:59 1 mg BID YURY Administration Bupropion HCl 200 mg 05/22/25 11:28 05/23/25 08:42 Bupropion Hcl 100 Mg Tablet NG 06/18/25 13:14 200 mg BID YURY Administration Carvedilol 6.25 mg 05/22/25 11:28 05/23/25 08:40 Carvedilol 3.125 Mg Tablet NG 06/19/25 08:59 6.25 mg BID YURY Administration Dextrose 25 ml 05/10/25 04:27 Dextrose 50%-Water Inj 50 Ml Syringe IV 06/09/25 04:26 Q15MIN PRN BG 50-70 responsive npo pt Dextrose 50 ml 05/10/25 04:27 Dextrose 50%-Water Inj 50 Ml Syringe IV 06/09/25 04:26 Q15MIN PRN BG <50 OR BG <70 & pt unresponsive Escitalopram Oxalate 20 mg 05/22/25 11:29 05/23/25 08:42 Escitalopram Oxalate 10 Mg Tablet NG 06/09/25 08:59 20 mg QDAY YURY Administration Glucagon 1 mg 05/10/25 04:27 Glucagon Inj 1 Mg Vial IM Q15MIN PRN BG <70, and no IV access Heparin Sodium (Porcine) 2,600 unit 05/19/25 14:08 Heparin Sod Inj 1000 Unit/Ml Vial 10 Ml INDWELLCAT 06/02/25 14:07 PRN PRN DIALYSIS Morphine Sulfate 100 mls @ 1 mls/hr 05/23/25 11:04 05/23/25 11:57 Morphine Sulfate Iv Drip 100mg/100ml IV 05/28/25 11:03 1 mg/hr .Q24H PRN 1 mls/hr PAIN (COMFORT CARE) Administration Protocol 1 MG/HR Insulin Degludec 10 unit 05/22/25 10:00 05/23/25 09:04 Insulin Degludec 5 Unit/0.05 Ml (Per 5 Units) SC 06/21/25 09:59 Not Given QDAY YURY Insulin Human Lispro 0 unit 05/15/25 12:00 05/23/25 13:06 Insulin Lispro (Admelog) 1 Unit/0.01 Ml Unit SC 06/09/25 11:59 Not Given Q6HR YURY Protocol Labetalol HCl 10 mg 05/22/25 15:33 Labetalol Inj 5 Mg/Ml Vial 20 Ml IVP 06/21/25 15:32 Q4H PRN Hypertensive Emergency Levothyroxine Sodium 75 mcg 05/22/25 11:30 05/23/25 05:48 Levothyroxine Sodium 25 Mcg Tablet NG 06/19/25 13:14 75 mcg ACBR YURY Administration Losartan Potassium 50 mg 05/22/25 11:26 05/23/25 08:41 Losartan Potassium 25 Mg Tablet NG 06/15/25 13:29 50 mg QDAY YURY Administration Magnesium Hydroxide 30 ml 05/10/25 04:13 Milk Of Magnesia Susp 30 Ml Udc PO 06/09/25 04:12 QDAY PRN CONSTIPATION Morphine Sulfate 2 mg 05/23/25 12:48 05/23/25 13:02 Morphine Sulf Inj 4 Mg/Ml Vial IVP 05/28/25 12:47 2 mg Q30M PRN Administration COMFORT CARE Multivitamins 1 tab 05/22/25 11:31 05/23/25 08:39 Multivitamins Tablet NG 06/16/25 08:59 1 tab QDAY YURY Administration Ondansetron HCl 4 mg 05/23/25 12:00 05/23/25 13:06 Ondansetron Odt 4 Mg Tabrap PO 06/22/25 11:59 Not Given Q6HR [facility] Pharmacy Consult 1 each 05/17/25 08:40 Pharmacy Renal Dose Adjustment 1 Ea XX 06/16/25 08:39 PRN PRN CONSULT Sodium Chloride 1 spray 05/17/25 07:35 Saline Nasal 45 Ml Btl NASAL 06/16/25 07:34 PRN PRN CONGESTION Thiamine HCl 100 mg 05/18/25 15:15 05/23/25 08:35 Thiamine Inj 100 Mg/Ml Vial 2 Ml IVP 06/17/25 15:14 100 mg QDAY YURY Administration Zinc Sulfate 220 mg 05/22/25 11:30 05/23/25 08:40 Zinc Sulfate 220 Mg Capsule NG 05/31/25 08:59 220 mg QDAY YURY Administration
--- NOTE | 2025-05-23 13:22 | ESCONSULT_ITS ---
RE: CHITRA TOVAR : 1945 DATE OF CONSULTATION: 05/23/2025 REFERRING PHYSICIAN: Dr. Gallo REASON FOR CONSULTATION: Pneumonia. HISTORY OF PRESENT ILLNESS: The patient has persistent right lower lobe changes on imaging and is short of breath. She was intubated for a time, was extubated successfully, but has struggled since extubation. She is now moving to DNR status and may move to comfort care later today. PAST MEDICAL HISTORY: Her medical problems include dysrhythmia for which she has had a pacemaker and is on an antiarrhythmic and diabetes, hyperlipidemia, and possibly other medical problems. PAST SURGICAL HISTORY: Include NG placement. no any other surgeries are noted, although we do not know about how many babies she has had. She clearly had at least 1, although she lives with her female partner who is apparently her decision-maker, Daja. ALLERGIES: SULFA DRUGS AND HAS TOMATO ALLERGY WELL. IMMUNIZATIONS: Unavailable. FAMILY HISTORY: Noncontributory and unavailable. SOCIAL HISTORY: The patient lives with her partner, Daja, who is coming to the hospital shortly. The patient will move to comfort care as soon as Daja arrives according to the granddaughter. The patient is likely to do poorly, so I am going to stop her antibiotics. she has also vastly exceeded the normal duration of abx Her creatinine is impaired and she is chronically heavyset. These are all problems that are well known and notable physical exam: not interactive. in distress. looks awful and it is hard be believe she will make it more than a few hrs. She had a BNP of over 2000 on arrival that has dropped to 200, so it is still a little elevated and her CRP is still a little high, so if you want to give her some oral antibiotics with the quinolone, that is acceptable, but probably I would make a note that she has already had more than 7 days of IV antibiotics. She had IV antibiotics earlier because of her infiltrate on admission and respiratory failure and then they were extended when the changes persisted. I was usually asked to see her I think on Monday, but she fell off the list for some reason, so I did not see her. I will see her again on Monday if she remains. If she goes home, I have no objection. If she moves to comfort care, I have no objection either. DT: 10:39:58 TT: 11:00:00 Ref: [id number] - TID: [id number] MTDD
--- NOTE | 2025-05-23 13:41 | PC.CM ---
Patient was visited by the Spiritual Care Volunteer who prayed with them. (Volunteer was in the hospital 11:05-1:41)
--- NOTE | 2025-05-23 14:57 | DES_ITS ---
<Statement entered by Alec Tomlin MD - 05/23/25 15:07> Patient examined and case discussed with the team including attending physician. Note reviewed, I agree with the pronouncement as documented. - Alec Tomlin MD, PGY 3 Disclaimer: The document may contain phonetic/typographic errors due to voice recognition software. These errors are purely due to imperfections in the software program. Documentation for date of: 05/23/25 Pronouncement Note Date and Time of Date of : 05/23/25 Time of : 14:37 PCOD Preliminary cause of : Cardiopulmonary arrest Summary Additional details: I examined the patient. Her pupils were fixed and dilated, nonreactive to light. She had no carotid or radial pulse after monitoring for 1 minute each. She had no audible breath sounds after lung auscultation for 1 minute. I pronounced the patient at 14:37 on 05/23/2025. Patient was seen and discussed with my my senior resident Dr. Nabor LOPES PGY-3. Nigel Nolen DO PGY-1. Additional Data Confirmation of : no pulse, no respirations, no heart sounds and pupils fixed and dilated Family: at bedside Attending/PCP notified?: Yes Attending physician: Haydee Gruber MD Was code activated?: No
--- NOTE | 2025-05-23 15:04 | DES_ITS ---
<Statement entered by Alec Tomlin MD - 05/23/25 16:16> Patient was examined with the team including attending physician. Note reviewed, I agree with the discharge plan as documented. - Alec Tomlin MD PGY 3 Disclaimer: The document may contain phonetic/typographic errors due to voice recognition software. Documentation for date of: 05/23/25 Summary Date and Time Date of admission: 05/10/25 04:13 Date of : 05/23/25 Time of : 14:37 Summary Details: I examined the patient. Her pupils were fixed and dilated, nonreactive to light. She had no carotid or radial pulse after monitoring for 1 minute each. She had no audible breath sounds after lung auscultation for 1 minute. I pronounced the patient at 14:37 on 05/23/2025. Hospital Course: 80 year-old female with PMHx noted for HFpEF, A-fib on Eliquis, bradycardia s/p pacemaker placement in 2022, hypothyroidism, chronic back pain, IDDM II, and hypertension who was admitted to ICU for further management and care of septic shock along with acute hypoxic respiratory failure in setting of community- acquired pneumonia. The patient was intubated on 05/10/2025 and was extubated on 05/16/2025. While intubated she was on pressor support and a temporary dialysis catheter was inserted. Per the ICU team, Bumex was given on a day by day basis while monitoring her CKD. The patient did have a CTA on 05/18/2025 with contrast so consideration of contrast induced nephropathy is still being made in the presence of a creatinine of 1.8. The patient was on linezolid. Vancomycin was discontinued due to her kidney function. After extubation she requested to be put on hospice care after discharge. An NG tube was inserted and the patient began receiving tube feeds. The patient was downgraded to the floors on 05/21/2025. The patient's condition declined. The following day several rapid responses were called for the patient due to hypoxemia, respiratory distress, and increased work of breathing. During the rapid responses, the patient was placed on BiPAP alternating with high flow nasal cannula oxygen delivery yet she was unable to maintain adequate oxygenation. She was given hydromorphone and Bumex during the rapid responses as well. The decision was made with her surrogate decision maker to transition the patient to comfort care in the hospital, as the patient was too deconditioned to be transferred to home hospice care. Comfort care was initiated around 11 AM on 05/23/2025. At 14:37 on 05/23/2025, the patient was pronounced due to cardiopulmonary arrest. Patient was seen and discussed with my attending physician Dr. Yasmani LOPES and my senior resident Alec Tomlin MD PGY-3. Nigel Nolen DO PGY-1. Additional Data Confirmation of as documented by pronouncing clinician: no pulse, no respirations, no heart sounds and pupils fixed and dilated Attending physician: José Luis Gallo MD Was code activated?: No Visit Providers Provider Primary care physician: Lang Sandoval MD Consults: 05/11/25 01:15 Referral Wound Care Urgent Comment: 05/11/25 14:13 Consult to Nephrology Routine Comment: Consulting Provider: Lisa Harvey ([email or web address]) 05/12/25 09:13 Referral Nutritional Services Routine Comment: wounds 05/16/25 13:27 Referral Physical Therapy Routine Comment: Physician Instructions: 05/17/25 06:46 Referral Speech Therapy Stat Comment: 05/18/25 09:00 Referral - [employer] Kerrick Kleaner Operator Routine Comment: swallow eval c Steffi 05/18/25 11:08 Referral Registered Dietitian Routine Comment: PPN 05/22/25 10:49 Consult to Infectious Diseases Routine Comment: Oxygenation not improving on current antibiotics. Consulting Provider: Shorty Trinh 05/22/25 16:41 Referral Hospice Stat Comment: Discharge Plan Plan Patient Disposition: Prescriptions/Referrals Referrals: Lang Sandoval MD [Primary Care Provider, Family Practice] Patient/Caregiver Discharge Instructions Print Language: Irish
--- NOTE | 2025-05-23 15:06 | PD.ADDPROG ---
Addendum Progress Note Addendum Date of report being addended: 05/23/25 Narrative: I Haydee Gruber MD reviewed the note and agree with the resident's assessment & plan with modifications/additions/exceptions as below. I have personally reviewed labs, imaging, home meds/prior records, examined the patient, formulated and discussed management plan with the IM team. An 80-year-old female with history of AF, HFpEF, sick sinus syndrome s/p PPM, PAD admitted with shock leading to ARDS secondary to pneumonia and UTI. 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 Patient has been extubated following prolonged hospitalization however has been extubated currently requiring BiPAP therapy currently with significant leukocytosis, KRYSTAL with creatinine 1.7. CXR did reveal congestion and effusion. Continue antibiotic therapy with linezolid, add cefepime for gram-negative coverage and continue BiPAP therapy as tolerated. Repeat CT chest to evaluate for potential empyema/pulmonary abscess formation. Patient has multiple comorbidities along with poor functional status and following prolonged hospitalization has severely guarded prognosis. Patient's daughter and partner who also holds advanced directive is contacted and goals of care were discussed by our team. Patient's partner (POA) and daughter unanimously agreed to proceed for comfort focused measures only. Will proceed with comfort focused care.
--- NOTE | 2025-05-23 15:45 | PC.SS ---
NOTCHED BLADE LOADER informed APS staff, Mary Ellen Castillo; that the patient on today's date. APS staff to update patient's report.
== END 2025-05-23 17:40 | disposition expired | DRG 870 ==
LOC: SERX 05-10 01:54 → SERHOLD 05-10 04:47 → S2SX 05-10 05:17 → S2NX 05-21 22:21
PROVIDERS: Internal Medicine; Student in an Organized Health Care Education/Training Program; Admitting Provider Student in an Organized Health Care Education/Training Program; Emergency Provider Emergency Medicine; PCP Family Medicine; Visit Provider Internal Medicine Critical Care Medicine
DX: A40.3 Sepsis due to Streptococcus pneumoniae (principal); G93.41 Metabolic encephalopathy; R65.21 Severe sepsis with septic shock; J96.01 Acute respiratory failure with hypoxia; I21.A1 Myocardial infarction type 2; N18.6 End stage renal disease; J69.0 Pneumonitis due to inhalation of food and vomit; J15.4 Pneumonia due to other streptococci; J44.0 Chronic obstructive pulmonary disease with (acute) lower respiratory infection; I50.32 Chronic diastolic (congestive) heart failure; E87.20 Acidosis, unspecified; N17.9 Acute kidney failure, unspecified; N39.0 Urinary tract infection, site not specified; E11.52 Type 2 diabetes mellitus with diabetic peripheral angiopathy with gangrene; E87.0 Hyperosmolality and hypernatremia; I13.2 Hypertensive heart and chronic kidney disease with heart failure and with stage 5 chronic kidney disease, or end stage renal disease; J95.851 Ventilator associated pneumonia; I74.5 Embolism and thrombosis of iliac artery; G72.81 Critical illness myopathy; Z95.0 Presence of cardiac pacemaker; Z79.01 Long term (current) use of anticoagulants; I48.91 Unspecified atrial fibrillation; E03.9 Hypothyroidism, unspecified; M54.9 Dorsalgia, unspecified; G89.29 Other chronic pain; E11.22 Type 2 diabetes mellitus with diabetic chronic kidney disease; Z79.4 Long term (current) use of insulin; D63.1 Anemia in chronic kidney disease; E83.39 Other disorders of phosphorus metabolism; D69.6 Thrombocytopenia, unspecified; E78.5 Hyperlipidemia, unspecified; E83.42 Hypomagnesemia; E87.6 Hypokalemia; I48.0 Paroxysmal atrial fibrillation; Z51.5 Encounter for palliative care; Z66 Do not resuscitate; G70.9 Myoneural disorder, unspecified; Z79.899 Other long term (current) drug therapy; Z86.73 Personal history of transient ischemic attack (TIA), and cerebral infarction without residual deficits; Z90.710 Acquired absence of both cervix and uterus; Z99.2 Dependence on renal dialysis; Z99.81 Dependence on supplemental oxygen; J84.10 Pulmonary fibrosis, unspecified; Y84.8 Other medical procedures as the cause of abnormal reaction of the patient, or of later complication, without mention of misadventure at the time of the procedure; I46.8 Cardiac arrest due to other underlying condition
CPT/HCPCS: 36415; 36600; 70450; 71045; 71250; 73620; 73630; 75635; 80048; 80053; 80061; 80069; 80074; 80202; 80307; 81001; 82803; 83036; 83605; 83735; 83880; 84100; 84145; 84439; 84443; 84484; 85025; 85610; 86140; 86706; 87040; 87081; 87086; 87106; 87186; 87205; 87400; 87493; 87811; 92526; 92610; 93005; 93306; 93926; 94002; 94003; 94640; 94644; 94660; 96365; 96366; 96375; 97161; 99285; A4216; A4314; A4649; A9270; J0131; J0283; J0360; J0456; J0692; J0696; J1100; J1171; J1643; J1644; J1815; J2021; J2250; J2270; J2405; J2470; J2997; J3010; J3373; J3411; J3475; J3480; J3490; J7030; J7042; J7050; J7120; J7999; P9047; Q5106; Q9967; J1920